=== PATIENT | female | born 1995 | race Caucasian/White ===

== ENCOUNTER 2020-01-11 10:20 | Observation (INO) | payer OTHER, SELFPAY ==
[2020-01-11 10:30] VITALS: BMI 36.9
[2020-01-11 10:49] VITALS: TEMP 36.8
[2020-01-11 11:00] VITALS: BP 129/73; PULSE 108
[2020-01-11 11:15] VITALS: BP 113/62; PULSE 101
[2020-01-11] MEDS: NIFEdipine 10 MG CAPSULE PO (11:29)
[2020-01-11 11:39] LABS: Add Urine Microscopic? YES; Appearance Urine Clear (Clear); Bacteria Urine 2+ /hpf; Bilirubin Urine Negative (Negative); Blood Urine Negative (Negative); Color Urine Straw (Yellow); Glucose Urine UA Negative (Negative); Ketones Urine Negative (Negative); Leukocyte Esterase Ur Trace LEU/UL (Negative); Nitrate Urine Negative (Negative); Protein Urine Negative (Negative); RBC Urine 0-2 /hpf (0-2); Specific Grav Ur 1.008 (1.001-1.035); Squamous Epithelial Cell Urine Occasional /hpf (Few); Urobilinogen Urine Negative mg/dL (<2.0); WBC Urine 0-3 /hpf
[2020-01-11 12:01] VITALS: BP 124/61; PULSE 114
--- NOTE | 2020-01-11 13:30 | OBADM ---
This patient, Mariel Gilbert, admitted to the OB room Labor/Delivery/Recovery 105 for observation. Patient/family oriented to hospital policies and general routines including ID bracelet, bed and alarms, visiting hours, pain management, procedures, bathroom and other care routines, personal items, smoking policy, room service/diet, and visiting hours. Patient/Family are encouraged to report perceived risks to care and to ask questions if they do not understand what they are told or what they should do.
--- NOTE | 2020-01-15 12:13 | PM.OBTRLD ---
OB - Triage/Final Diagnosis Evaluation Laboratory results: Laboratory Tests 01/11/20 11:23 Urine Color Straw Urine Appearance Clear Urine pH 7.0 Ur Specific [place] 1.008 Urine Protein Negative Urine Glucose (UA) Negative Urine Ketones Negative Ur Blood (Man) Negative Urine Nitrate Negative Urine Bilirubin Negative Urine Urobilinogen Negative Leukocyte Esterase Rfl Trace H Urine RBC 0-2 Urine WBC 0-3 Ur Squamous Epith Cells Occasional Urine Bacteria 2+ H Final Diagnosis (1) contractions: Code(s): O47.9 - False labor, unspecified Status: Acute
== END 2020-01-11 12:20 | disposition home or self-care (01) ==
PROVIDERS: Admitting Provider Obstetrics & Gynecology; Visit Provider Obstetrics & Gynecology
DX: O47.03 False labor before 37 completed weeks of gestation, third trimester (principal); Z3A.35 35 weeks gestation of pregnancy
CPT/HCPCS: 81001; 84112; A9270; G0378; G0379

== ENCOUNTER 2020-01-18 13:22 | Observation (INO) | payer OTHER, SELFPAY ==
[2020-01-18] VITALS (20 sets, daily range): BP systolic 105–124; BP diastolic 55–75; PULSE 88–128; O2SAT 99–100
--- NOTE | ~2020-01-18 | US_ITS ---
EXAMINATION: US OB limited DATE: 01/18/2020 19:04 INDICATION: Abdominal pain during third trimester of . TECHNIQUE: Real-time ultrasound of the pelvis was performed. The interpreting radiologist was not pre sent for the study. COMPARISON: None. FINDINGS: There is a single living fetus in vertex presentation. The placenta is posterior and not low-lying. heart rate is 137 beats per minute (bpm). The amniotic fluid volume is subjectively normal. IMPRESSION: 1. Single living fetus in vertex presentation with heart rate of 137 bpm. Reviewed, dictated and finalized at location A. MAKER HELPER IMPRESSION: 1. Single living fetus in vertex presentation with heart rate of 137 bpm .
[2020-01-18 15:33] LABS: Add Urine Microscopic? YES; Amorphous Sediment Urine Few; Appearance Urine Clear (Clear); Bacteria Urine 3+ /hpf; Bilirubin Urine Negative (Negative); Blood Urine Negative (Negative); Color Urine Colorless (Yellow); Glucose Urine UA Negative (Negative); Ketones Urine 1+ mg/dL (Negative); Leukocyte Esterase Ur Negative LEU/UL (NEGATIVE); Nitrate Urine Negative (Negative); Protein Urine Negative (Negative); RBC Urine 0-2 /hpf (0-2); Specific Grav Ur 1.006 (1.001-1.035); Squamous Epithelial Cell Urine Rare /hpf (Few); Urobilinogen Urine Negative mg/dL (<2.0)
--- NOTE | 2020-01-18 15:40 | OBADM ---
This patient, Mariel Gilbert, admitted to the OB room OB Post 112 for observation. Patient/family oriented to hospital policies and general routines including ID bracelet, bed and alarms, visiting hours, pain management, procedures, bathroom and other care routines, personal items, smoking policy, room service/diet, and visiting hours. Patient/Family are encouraged to report perceived risks to care and to ask questions if they do not understand what they are told or what they should do.
[2020-01-18 17:06] LABS: Basophils Absolute Auto 0.1 K/mm3 (0.0-0.1); Basophils Percent Auto 0.4 % (0.2-1.2); Eosinophils Absolute Auto 0.1 K/mm3 (0-0.3); Eosinophils Percent Auto 0.7 % (0-4.4); Hematocrit 33.8 % (37.0-47.0); Hemoglobin 10.6 g/dL (12.0-15.0); Immature Granulocyte Absolute 0.09 K/mm3 (0.00-0.031); Immature Granulocyte Percent A 0.8 % (0-0.5); Lymphocytes Absolute Auto 1.97 K/mm3 (0.9-3.2); Lymphocytes Percent Auto 17.7 % (18.3-44.2); Mean Corpuscular HGB Conc 31.4 g/dl (32-36); Mean Corpuscular Hemoglobin 25.7 pg (26-34); Mean Corpuscular Volume 81.8 fl (80-100); Mean Platelet Volume 10.9 fl (7.4-10.4); Monocytes Absolute Auto 0.8 K/mm3 (0.1-0.6); Monocytes Percent Auto 6.7 % (2.6-8.5); Neutrophils Absolute Auto 8.2 K/mm3 (1.3-6.7); Neutrophils Percent Auto 73.7 % (45.5-73.1); Platelet Count Result 204 k/mm3 (150-375); Red Blood Count 4.13 M/mm3 (4.2-5.4); Red Cell Distribution Width 15.4 % (11.5-14.5); White Blood Count 11.2 K/mm3 (4.5-10.0)
[2020-01-18 17:18] LABS: Alanine Aminotransferase 11 U/L (4-35); Albumin Level 3.6 g/dL (3.5-5.1); Alkaline Phosphatase 122 U/L (38-126); Aspartate Amino Transferase 19 U/L (14-36); Bilirubin,Total 0.5 mg/dL (0.2-1.3); Blood Urea Nitrogen 7 mg/dL (7-17); Calcium 8.7 mg/dL (8.4-10.2); Carbon Dioxide 21 mmol/L (22-30); Chloride 101 mmol/L (98-107); Estimated Glomerular Filt Rate > 60; Glucose 74 mg/dL (65-105); Potassium 3.7 mmol/L (3.4-5.0); Sodium 135 mmol/L (137-145); Uric Acid 3.6 mg/dL (2.5-7.5)
[2020-01-24 07:55] LABS: Glucose Point of Care 120 (65-105)
--- NOTE | 2020-01-29 08:03 | P.PNOB_ITS ---
OB - Triage/Final Diagnosis Evaluation Laboratory results: Laboratory Tests 01/18/20 01/18/20 01/18/20 15:18 17:01 17:01 WBC 11.2 H RBC 4.13 L Hgb 10.6 L Hct 33.8 L MCV 81.8 MCH 25.7 L MCHC 31.4 L RDW 15.4 H Plt Count 204 MPV 10.9 H Immature Gran % (Auto) 0.8 H Neut % (Auto) 73.7 H Lymph % (Auto) 17.7 L [place] % (Auto) 6.7 Eos % (Auto) 0.7 Baso % (Auto) 0.4 Lymph # (Auto) 1.97 [place] # (Auto) 0.8 H Eos # (Auto) 0.1 Baso # (Auto) 0.1 Abs Immat Gran (auto) 0.09 H Absolute Neuts (auto) 8.2 H Absolute Nucleated RBC 0.0 Nucleated RBC % 0.0 Sodium 135 L Potassium 3.7 Chloride 101 Carbon Dioxide 21 L BUN 7 Creatinine 0.50 L Estim Creat Clear Calc Not Reportable Estimated GFR > 60 Glucose 74 POC Capillary Glucose Uric Acid 3.6 Calcium 8.7 Total Bilirubin 0.5 AST 19 ALT 11 Alkaline Phosphatase 122 Total Protein 7.0 Albumin 3.6 Urine Color Colorless Urine Appearance Clear Urine pH 7.0 Ur Specific [place] 1.006 Urine Protein Negative Urine Glucose (UA) Negative Urine Ketones 1+ H Ur Blood (Man) Negative Urine Nitrate Negative Urine Bilirubin Negative Urine Urobilinogen Negative Ur Leukocyte Esterase Negative Urine RBC 0-2 Ur Squamous Epith Cells Rare Amorphous Sediment Few H Urine Bacteria 3+ H 01/18/20 19:22 WBC RBC Hgb Hct MCV MCH MCHC RDW Plt Count MPV Immature Gran % (Auto) Neut % (Auto) Lymph % (Auto) [place] % (Auto) Eos % (Auto) Baso % (Auto) Lymph # (Auto) [place] # (Auto) Eos # (Auto) Baso # (Auto) Abs Immat Gran (auto) Absolute Neuts (auto) Absolute Nucleated RBC Nucleated RBC % Sodium Potassium Chloride Carbon Dioxide BUN Creatinine Estim Creat Clear Calc Estimated GFR Glucose POC Capillary Glucose 120 H Uric Acid Calcium Total Bilirubin AST ALT Alkaline Phosphatase Total Protein Albumin Urine Color Urine Appearance Urine pH Ur Specific [place] Urine Protein Urine Glucose (UA) Urine Ketones Ur Blood (Man) Urine Nitrate Urine Bilirubin Urine Urobilinogen Ur Leukocyte Esterase Urine RBC Ur Squamous Epith Cells Amorphous Sediment Urine Bacteria Final Diagnosis (1) Gestational hypertension: Code(s): O13.9 - Gestational [-induced] hypertension without significant proteinuria, unspecified trimester Status: Acute
== END 2020-01-18 21:25 | disposition home or self-care (01) ==
LOC: ANHOBPP 15:11 → ANHOBOP 15:40 → ANHOBPP 15:41 → ANHOBOP 15:41 → ANHOBPP 15:41
PROVIDERS: Advanced Practice Midwife; Admitting Provider Obstetrics & Gynecology; Family Provider Obstetrics & Gynecology; Visit Provider Obstetrics & Gynecology
DX: O13.3 Gestational [pregnancy-induced] hypertension without significant proteinuria, third trimester (principal); Z3A.36 36 weeks gestation of pregnancy
CPT/HCPCS: 36415; 76815; 80053; 81001; 84550; 85025; 87086; 99199; A9270; G0378; G0379

== ENCOUNTER 2020-01-25 10:51 | Outpatient (CLI) | payer OTHER, SELFPAY ==
[2020-01-25 11:46] VITALS: BP 118/74; PULSE 101
[2020-01-25 11:50] LABS: Basophils Percent Auto 0.3 % (0.2-1.2); Eosinophils Percent Auto 0.4 % (0-4.4); Hematocrit 31.6 % (37.0-47.0); Hemoglobin 9.8 g/dL (12.0-15.0); Immature Granulocyte Absolute 0.08 K/mm3 (0.00-0.031); Immature Granulocyte Percent A 0.9 % (0-0.5); Lymphocytes Absolute Auto 1.57 K/mm3 (0.9-3.2); Lymphocytes Percent Auto 16.8 % (18.3-44.2); Mean Corpuscular Volume 80.6 fl (80-100); Mean Platelet Volume 10.3 fl (7.4-10.4); Monocytes Absolute Auto 0.7 K/mm3 (0.1-0.6); Monocytes Percent Auto 7.8 % (2.6-8.5); Neutrophils Absolute Auto 6.9 K/mm3 (1.3-6.7); Neutrophils Percent Auto 73.8 % (45.5-73.1); Platelet Count Result 204 k/mm3 (150-375); Red Blood Count 3.92 M/mm3 (4.2-5.4); Red Cell Distribution Width 15.5 % (11.5-14.5); White Blood Count 9.4 K/mm3 (4.5-10.0)
[2020-01-25 12:01] VITALS: BP 120/71; PULSE 92
[2020-01-25 12:06] LABS: Alanine Aminotransferase 13 U/L (4-35); Albumin Level 3.3 g/dL (3.5-5.1); Alkaline Phosphatase 122 U/L (38-126); Aspartate Amino Transferase 20 U/L (14-36); Bilirubin,Total 0.4 mg/dL (0.2-1.3); Blood Urea Nitrogen 10 mg/dL (7-17); Calcium 8.5 mg/dL (8.4-10.2); Carbon Dioxide 21 mmol/L (22-30); Chloride 101 mmol/L (98-107); Estimated Glomerular Filt Rate > 60; Glucose 86 mg/dL (65-105); Potassium 3.7 mmol/L (3.4-5.0); Sodium 134 mmol/L (137-145); Uric Acid 4.3 mg/dL (2.5-7.5)
[2020-01-25 12:14] LABS: Add Urine Microscopic? YES; Appearance Urine Clear (Clear); Bacteria Urine Trace /hpf; Bilirubin Urine Negative (Negative); Blood Urine Negative (Negative); Color Urine Yellow (Yellow); Glucose Urine UA Negative (Negative); Ketones Urine Trace mg/dL (Negative); Leukocyte Esterase Ur Negative LEU/UL (NEGATIVE); Mucus Urine Rare /lpf; Nitrate Urine Negative (Negative); Protein Urine Negative (Negative); RBC Urine 0-2 /hpf (0-2); Specific Grav Ur 1.017 (1.001-1.035); Squamous Epithelial Cell Urine Few /hpf (Few); Urobilinogen Urine Negative mg/dL (<2.0); WBC Urine 0-3 /hpf (0-3)
[2020-01-25 12:16] VITALS: BP 129/74; PULSE 88
[2020-01-25 15:19] LABS: Creatinine Urine 86.4 mg/dL; Total Protein Urine Random 11 mg/dL
== END 2020-01-25 13:23 | disposition home or self-care (01) ==
LOC: ANHOBOP 10:57 → ANHOBPP 10:58
PROVIDERS: Visit Provider Obstetrics & Gynecology
DX: M79.89 Other specified soft tissue disorders (principal)
CPT/HCPCS: 36415; 80053; 81001; 82570; 84156; 84550; 85025; 87086; 87088; 99199

== ENCOUNTER 2020-02-01 11:07 | Observation (INO) | payer OTHER, SELFPAY ==
--- NOTE | 2020-02-01 13:15 | OBADM ---
This patient, Mariel Gilbert, admitted to the OB room Labor/Delivery/Recovery 104 for observation. Patient/family oriented to hospital policies and general routines including ID bracelet, bed and alarms, visiting hours, pain management, procedures, bathroom and other care routines, personal items, smoking policy, room service/diet, and visiting hours. Patient/Family are encouraged to report perceived risks to care and to ask questions if they do not understand what they are told or what they should do.
--- NOTE | 2020-02-11 19:13 | PM.OBTRLD ---
OB - Triage/Final Diagnosis Final Diagnosis (1) False labor: Code(s): O47.9 - False labor, unspecified Status: Acute
== END 2020-02-01 13:11 | disposition home or self-care (01) ==
PROVIDERS: Admitting Provider Obstetrics & Gynecology; Visit Provider Obstetrics & Gynecology
DX: O47.1 False labor at or after 37 completed weeks of gestation (principal); Z3A.38 38 weeks gestation of pregnancy
CPT/HCPCS: G0378; G0379

== ENCOUNTER 2020-02-07 04:55 | Inpatient (IN) | payer OTHER, SELFPAY ==
[2020-02-07] VITALS (171 sets, daily range): BP systolic 90–137; BP diastolic 47–85; PULSE 68–148; RESP 12; TEMP 36.1–37.1; O2SAT 95–100; BMI 37.2
--- NOTE | 2020-02-07 05:19 | LDADM ---
This patient, Mariel Gilbert, was admitted to Labor/Delivery/Recovery 105 on 02/07/20 at 04:55. Plans for labor, pain management and were discussed with patient. Patient/family oriented to hospital policies and general routines including ID bracelet, bed and alarms, visiting hours, pain management, procedures, bathroom and other care routines, personal items, smoking policy, room service/diet and guest tray routines, infant security routines, and visiting hours. Patient/Family are encouraged to report perceived risks to care and to ask questions if they do not understand what they are told or what they should do. See OBIX for further documentation.
[2020-02-07] MEDS: LACTATED RINGERS 1,000 ML 125 ML IV CONT ×3 (05:38→11:12)
[2020-02-07] MEDS: OXYTOCIN 30 UNITS/NS 500 ML 30 UNITS/500 ML BAG IV CONT (05:38)
[2020-02-07] MEDS: ceFAZolin 2 GM/D5W 50 ML 2 GM/50 ML BAG IVPB (05:40)
[2020-02-07 05:56] LABS: Basophils Absolute Auto 0.1 K/mm3 (0.0-0.1); Basophils Percent Auto 0.5 % (0.2-1.2); Eosinophils Absolute Auto 0.1 K/mm3 (0-0.3); Eosinophils Percent Auto 0.7 % (0-4.4); Hematocrit 31.7 % (37.0-47.0); Hemoglobin 9.7 g/dL (12.0-15.0); Immature Granulocyte Absolute 0.06 K/mm3 (0.00-0.031); Immature Granulocyte Percent A 0.6 % (0-0.5); Mean Corpuscular HGB Conc 30.6 g/dl (32-36); Mean Corpuscular Hemoglobin 24.3 pg (26-34); Mean Corpuscular Volume 79.4 fl (80-100); Mean Platelet Volume 11.4 fl (7.4-10.4); Monocytes Absolute Auto 0.6 K/mm3 (0.1-0.6); Monocytes Percent Auto 6.2 % (2.6-8.5); Neutrophils Absolute Auto 6.8 K/mm3 (1.3-6.7); Platelet Count Result 221 k/mm3 (150-375); Red Blood Count 3.99 M/mm3 (4.2-5.4); Red Cell Distribution Width 15.9 % (11.5-14.5)
[2020-02-07] MEDS: ONDANSETRON INJ 4 MG/2 ML VIAL IV PUSH ×2 (06:47→16:03)
[2020-02-07 07:23] LABS: Rapid Plasma Reagin Non-Reactive (NonReactive)
[2020-02-07 07:32] LABS: Glucose Point of Care 95 (65-105)
[2020-02-07 07:32] LABS: Glucose Point of Care 122 (65-105)
--- NOTE | 2020-02-07 07:57 | WPDOBADMIT ---
Obstetrics - Admit Note Admission Note: 24 y/o at 39 weeks here for induction of labor. GDM insulin controlled. EFW 7-12 8-9 days ago. Discussed efw with patient and she would like proceed with induction of labor. record reviewed. No pertinent additions to the history and/or any subsequent changes in the physical findings that are not consistent with the expected course of the were found. Additions to the history and/or subsequent changes in the physical findings follow. None.
--- NOTE | 2020-02-07 10:19 | WPDANESEPP ---
Anes - Eval Pre Procedure Procedure: labor pain management Date/Time: 02/07/20 10:19 Surgeon: courtney Pre Op Diagnosis: pain during labor Patient Data Age: 24 Gender: F Height: 5 ft 2 in Weight: 92.3 kg Last Vital Signs Temp 98.3 F 02/07/20 09:53 Pulse 89 02/07/20 10:01 BP 125/66 02/07/20 10:01 Allergies Allergy/AdvReac Type Severity Reaction Status Date / Time aspirin Allergy Unknown Nausea and Verified 06/30/19 20:45 Vomiting amoxicillin Allergy Rash Verified 01/11/20 11:18 Home Medications Medication Instructions Recorded Confirmed Type ondansetron 4 mg PO Q6H PRN #30 tablet 09/26/19 02/07/20 Rx Humulin N NPH U-100 Insulin 16 unit SUBCUT QAM 01/11/20 02/07/20 History Humulin N NPH U-100 Insulin 18 unit SUBCUT HS 01/11/20 02/07/20 History Laboratory Tests 02/07/20 02/07/20 02/07/20 05:30 05:30 05:30 WBC 10.0 K/mm3 K/mm3 (4.5-10.0) RBC 3.99 M/mm3 L M/mm3 (4.2-5.4) Hgb 9.7 g/dL L g/dL (12.0-15.0) Hct 31.7 % L % (37.0-47.0) MCV 79.4 fl L fl (80-100) MCH 24.3 pg L pg (26-34) MCHC 30.6 g/dl L g/dl (32-36) RDW 15.9 % H % (11.5-14.5) Plt Count 221 k/mm3 k/mm3 (150-375) MPV 11.4 fl H fl (7.4-10.4) Immature Gran % (Auto) 0.6 % H % (0-0.5) Neut % (Auto) 68.0 % % (45.5-73.1) Lymph % (Auto) 24.0 % % (18.3-44.2) [place] % (Auto) 6.2 % % (2.6-8.5) Eos % (Auto) 0.7 % % (0-4.4) Baso % (Auto) 0.5 % % (0.2-1.2) Lymph # (Auto) 2.40 K/mm3 K/mm3 (0.9-3.2) [place] # (Auto) 0.6 K/mm3 K/mm3 (0.1-0.6) Eos # (Auto) 0.1 K/mm3 K/mm3 (0-0.3) Baso # (Auto) 0.1 K/mm3 K/mm3 (0.0-0.1) Abs Immat Gran (auto) 0.06 K/mm3 H K/mm3 (0.00-0.031) Absolute Neuts (auto) 6.8 K/mm3 H K/mm3 (1.3-6.7) Absolute Nucleated RBC 0.0 K/mm3 K/mm3 (0.0-0.012) Nucleated RBC % 0.0 % % (0.0-0.2) POC Capillary Glucose RPR Non-reactive (NonReactive) Blood Type A Positive Antibody Screen Negative 02/07/20 02/07/20 05:32 07:27 WBC RBC Hgb Hct MCV MCH MCHC RDW Plt Count MPV Immature Gran % (Auto) Neut % (Auto) Lymph % (Auto) [place] % (Auto) Eos % (Auto) Baso % (Auto) Lymph # (Auto) [place] # (Auto) Eos # (Auto) Baso # (Auto) Abs Immat Gran (auto) Absolute Neuts (auto) Absolute Nucleated RBC Nucleated RBC % POC Capillary Glucose 122 mg/dl H mg/dl 95 mg/dl mg/dl (65-105) (65-105) RPR Blood Type Antibody Screen : gestational age (edc 02/14/20) Patient hx anesthesia problems: none Family hx anesthesia problems: none Prior Surgeries: appy, tonsillectomy [facility] Past Medical History Medical History (Updated 02/07/20 @ 10:18 by Sheyla Singleton CRNA) Surgical History Surgical History (Updated 02/07/20 @ 10:18 by Sheyla Singleton CRNA) History of appendectomy History of tonsillectomy Family History Family History (Updated 01/25/20 @ 13:58 by José Burrows RN) Grandparent Diabetes mellitus Daughter Epilepsy Social History Social History Smoking status: Former smoker Tobacco type: cigarettes Substance use: never Gender identity (if verbalized by the patient): Female Spiritual care concerns: No Exam Day of Procedure 02/07/20 10:19
[2020-02-07 12:11] LABS: Glucose Point of Care 87 (65-105)
[2020-02-07 16:02] LABS: Glucose Point of Care 79 (65-105)
--- NOTE | 2020-02-07 18:12 | PM.OBPRVD ---
OB - Delivery Note Procedure Delivery date: 02/07/20 events: Gestational Diabetes Induction method: per pitocin protocol Delivery monitor: external FHT and external uterine Episiotomy description: None Laceration description: None Estimated blood loss (mL): 36 Anesthesia type: Epidural Baby Date of : 02/07/20 Time of : 17:56 Weeks of gestation at delivery: 39 Weight (pounds): 8 Weight (ounces): 15 presentation: vertex position: Left Occiput Anterior Placenta delivery description: Spontaneous score one minute: 4 score five minutes: 8 Narrative: After delivery of head. Minimal advancement of baby with maternal push effort. Pt placed in juaquin and attempted to push with no advancement. I placed my hands inside and felt that the shoulder did not appear to be stuck. Suprapubic pressure applied and delivery of shoulder accomplished with maternal pushing. Slow delivery of torso over about 10 seconds. Infant not vigorous at delivery. Cord clamped and cut and infant handed off to nursery staff.
[2020-02-07] MEDS: OXYTOCIN 30 UNITS/NS 500 ML 30 UNITS/500 ML BAG 125 UNITS IV CONT (18:26)
--- NOTE | 2020-02-07 23:01 | PC.NURSE ---
2034 Pt arrives to floor per wheelchair accompanied by baby in crib and staff. Plan of care and floor routines discussed with pt and she voices understanding. Mom encouraged to make needs and concerns known to staff.
[2020-02-07] MEDS: ACETAMINOPHEN 325 MG TABLET 650 MG PO (23:09)
[2020-02-08 05:22] LABS: Hematocrit 30.6 % (37.0-47.0); Hemoglobin 9.3 g/dL (12.0-15.0)
[2020-02-08 08:00] VITALS: BP 119/72; PULSE 84; RESP 20; TEMP 36.2; O2SAT 100
--- NOTE | 2020-02-08 08:37 | PM.OBPNVD ---
OB - PN: Subj Subjective Date/time seen: 02/08/20 08:37 Patient comments: no complaints, pain well controlled, incisional pain, tolerating diet and flatus present OB - PN: Obj Data Labs CBC & Chem 7: 02/08/20 04:55 Labs: Laboratory Results - last 24 hr 02/07/20 02/07/20 02/08/20 12:05 15:59 04:55 Hgb 9.3 L Hct 30.6 L POC Capillary Glucose 87 79 OB - PN A/P Plan day: 1 Plan: routine care Comments: No problems, routine care Time Spent With Patient Time: Total time spent is greater than 50% in coordination of care (as documented) at patient's floor/unit and/or counseling patient: Exam Const: General: comfortable, no acute distress and alert Resp: Effort & Inspection: normal respiratory effort Auscultation: no crackles, no rales and no rhonchi Cardio: Rate: regular rate Heart sounds: no click, no murmurs and no rubs GI: Inspection: non-distended GI Palp: No Tenderness to palpation present (GI) Auscultation: normal bowel sounds Other: Incision - CDI Extrem: General: normal to inspection, no pedal edema and no calf tenderness
[2020-02-08] MEDS: DOCUSATE SODIUM 100 MG CAPSULE PO ×2 (09:00→16:21)
[2020-02-08] MEDS: ACETAMINOPHEN 325 MG TABLET 650 MG PO ×2 (09:00→16:20)
[2020-02-08] MEDS: POLYSACCHARIDE IRON COMPLEX 150 MG CAPSULE PO ×2 (09:00→16:21)
[2020-02-08] MEDS: MULTIVIT/MIN/PREN/FOL AC/IRON TABLET 1 TAB PO (09:00)
[2020-02-08] MEDS: LANOLIN (LANSINOH) 7.5 GM CREAM 1 APPLIC TOPICAL (09:01)
--- NOTE | 2020-02-08 09:15 | WPDANLDPN2 ---
Anes-Prog Note L&D Date/Time: 02/08/20 09:15 Comfortable throughout: labor and delivery (Patient stated that epidural came dislodged prior to delivery. Patient described acceptable level of comfort until epidural was dislodged. ) Neuraxial method: epidural Epidural/Spinal procedure site: clean & non-tender Neuro status: Neuro function grossly intact. Cardiovascular status: normal Respiratory status: normal Airway patency: baseline Mental status: baseline Post-Op hydration status: normal Vital Signs: Last Vital Signs Temp 36.7 C 02/07/20 23:43 Pulse 102 H 02/07/20 23:43 Resp 12 02/07/20 23:43 BP 107/67 02/07/20 23:43 Pulse Ox 100 02/07/20 17:54 Pain score (VAS): 0/10. Patient resting in bed at time of assessment, appears comfortable. Support person at bedside. Post-procedural complaints: none Patient feedback: Patient satisfied with anesthetic care.
--- NOTE | 2020-02-08 15:35 | PC.NURSE ---
Consulted with patient, mother reports pain with feeding. Mother's right nipple is slightly bruised. Observed mother putting to breast in cradle position with shallow latch and incorrect alignment. Demonstrated stimulation techniques to wake infant for feeding. Assisted with to breast. Reviewed positioning/alignment in cross cradle, holding breast in U hold and guided asymmetrical latch on. Discussed rational for each. Observed has a tight frenulum, tongue does go beyond gum ridge. Tongue does not flatten and cup. Several attempts before was able to latch correctly. nursed eagerly, with steady draws and frequent swallowing noted. Mother reports this latch has minimal discomfort to her. Reviewed signs of a correct latch, effective nursing and suck swallow ratio. Demonstrated how to adjust latch more deeply while feeding. Suggested mother hold breast during entire feeding to assist in maintaining deep latch. was able to maintain latch without discomfort to mother. Nipple care reviewed. Instructed mother to call out for RN assistance if she is unable to latch for feeding or she has discomfort with nursing. Instructed feeding should be initiated three hours from start of last feeding or if feeding cues are noted before. Mother voiced understanding of information shared. Reviewed infant feeding cues, frequencies, duration of feedings, feeding elimination flow sheet, and signs of adequate intake.
[2020-02-08 20:36] VITALS: BP 119/79; PULSE 81; RESP 18; TEMP 37.4; O2SAT 99
--- NOTE | 2020-02-09 07:31 | PM.OBPNVD ---
OB - PN: Subj Subjective Date/time seen: 02/09/20 07:31 Patient comments: no complaints baby status: doing well OB - PN: Obj Data Labs CBC & Chem 7: 02/08/20 04:55 OB - PN A/P Plan day: 2 Plan: discharge home Time Spent With Patient Time: Total time spent is greater than 50% in coordination of care (as documented) at patient's floor/unit and/or counseling patient: Review of Systems Review of Systems: All systems reviewed & are unremarkable except as noted in HPI and below Exam Const: General: comfortable Resp: Effort & Inspection: normal respiratory effort Psych: Appearance: grossly normal Affect: normal affect Attitude: cooperative
--- NOTE | 2020-02-09 07:32 | P.DS_ITS ---
OB - DS: Summary OB Procedures : None OB Procedures Intrapartum: Spontaneous Vag Delivery OB Procedures: : None Time Spent with Patient Time attestation: Total time spent providing and/or coordinating discharge services: DS: Data Data Completed and Pending Pending studies at discharge: Pending at discharge 02/07/20 18:04 Surgical [PTH] Routine Discharge Plan Discharge Attending physician on discharge: Rene Gotti Discharging Clinician: Maria T Carlton Patient Disposition: Home, Self-Care Activity: pelvic rest Diet: regular Patient Instructions: Antibiotic Form Stand Alone Forms: General Discharge Information Follow-up/Referrals: Swetha Schwab CNM [Certified Nurse Transaction Advisory Services Manager] - 4 Weeks Discharge Medications: New polysaccharide iron complex 150 mg iron Capsule 150 mg PO BIDWM Qty: 30 RF: 0 Discontinued ondansetron 4 mg Tablet,Disintegrating 4 mg PO Q6H PRN (Reason: Nausea And Vomiting) Qty: 30 RF: 0 Humulin N NPH U-100 Insulin 100 unit/mL Suspension 16 unit SUBCUT QAM RF: 0 Humulin N NPH U-100 Insulin 100 unit/mL Suspension 18 unit SUBCUT HS RF: 0 Date of admission: 02/07/20 04:55 Primary Care Provider: UNKNOWN,DOCTOR Admitting Provider: Rene Gotti Attending physician on admission: Rene Gotti
[2020-02-09 08:15] VITALS: BP 124/67; PULSE 77; RESP 16; TEMP 37.1; O2SAT 100
[2020-02-09] MEDS: ACETAMINOPHEN 325 MG TABLET 650 MG PO (08:33)
[2020-02-09] MEDS: DOCUSATE SODIUM 100 MG CAPSULE PO (08:33)
[2020-02-09] MEDS: POLYSACCHARIDE IRON COMPLEX 150 MG CAPSULE PO (08:33)
[2020-02-09] MEDS: MULTIVIT/MIN/PREN/FOL AC/IRON TABLET 1 TAB PO (08:33)
--- NOTE | 2020-02-09 12:10 | PC.NURSE ---
Mother is able to independently latch infant with appropriate positioning/alignment, reporting minimal tenderness with feedings. Mother feels ifnant is latching more deeply and feels she is able to correct latch as needed. She is feeding as required and waking infant to feed if needed. has had 8 effective feedings in the past 24 hours, and is currently meeting outcomes for weight, output, jaundice and feeding frequencies. Mother states she feels confident to continue effective at home. Reviewed transition to breast milk, signs of adequate intake, and engorgement/relief. Instructed to call ICP if intake/output less than required. Reviewed regular medications mother is taking. Information provided per [facility]. Reviewed community resources on the [facility] website and in the Mom/Baby guide. Information on outpatient services provided. Mother has no further questions at this time.
[2020-02-12 10:23] VITALS: BP 119/67; PULSE 94; RESP 18; TEMP 36.8
== END 2020-02-09 13:30 | disposition home or self-care (01) | DRG 560 ==
LOC: ANHLDR 10:20 → ANHOB2 21:02
PROVIDERS: Advanced Practice Midwife; Admitting Provider Obstetrics & Gynecology; Visit Provider Obstetrics & Gynecology
DX: O24.424 Gestational diabetes mellitus in childbirth, insulin controlled (principal); Z37.0 Single live birth; Z3A.39 39 weeks gestation of pregnancy
CPT/HCPCS: 36415; 85014; 85018; 85025; 86592; 86850; 86900; 86901; 88307; A9270; J0690; J2405; J2590; J2795; J7120

== ENCOUNTER 2020-05-22 16:28 | Outpatient (CLI) | payer OTHER, SELFPAY ==
--- NOTE | ~2020-05-22 | US_ITS ---
EXAMINATION: US breast RT limited HISTORY: Palpable lump of the lower-outer right breast TECHNIQUE: Limited right breast ultrasound is performed. FINDINGS: There is no evidence of focal abnormal cystic or solid mass in the vicinity of the reported palpable abnormality of concern. IMPRESSION: No specific sonographic correlate is identified for the reported palpable abnormality of concern. Fur ther evaluation at this time should be based on clinical assessment. Continued follow-up physical exa mination is recommended. BI-RADS Category 1: Negative Reviewed, dictated and finalized at location A. IMPRESSION: No specific sonographic correlate is identified for the reported palpable abnor mality of concern. Further evaluation at this time should be based on clinical assessment. Continued follow-up physical examination is recommended. BI-RADS Category 1: Negative
== END 2020-05-22 16:29 | disposition home or self-care (01) ==
PROVIDERS: Visit Provider Advanced Practice Midwife
DX: N63.10 Unspecified lump in the right breast, unspecified quadrant (principal)
CPT/HCPCS: 76642

== ENCOUNTER 2022-09-12 10:00 | Emergency (ER) | payer OTHER, SELFPAY ==
[2022-09-12 10:05] VITALS: BP 128/88; PULSE 103; RESP 16; TEMP 36.2; O2SAT 98
--- NOTE | 2022-09-12 10:53 | ED.GENADULT ---
HPI - General Adult General Chief complaint: Skin/Abscess/Foreign Body Stated complaint: rash on body and blisters Time Seen by Provider: 09/12/22 10:03 History of Present Illness HPI narrative: the patient is an otherwise healthy 27-year-old woman who for the last 3-4 weeks has noticed a rash it on different parts of her body, including the torso, mostly in the front but to a lesser extent the back and between her thighs and on her breasts. Initially thought to be poison kirill at an urgent care visit and prescribed prednisone. This resulted in her face turning more red and she was told to discontinue it. She has applied Benadryl topical lotion to the areas but without relief of the itching. No exposure to pets or insects. No exposure to new medications or new lotions or detergents. No exposure to plants or shrubs or animals. No previous history of staph or impetigo or MRSA. No dyspnea. No other systemic manifestations of disease. No fevers or chills or diaphoresis or rhinorrhea or cough or respiratory illnesses. Related Data Home Medications Medication Instructions Recorded Confirmed norethindrone 1 mg-ethinyl 1 tablet PO DAILY 09/12/22 09/12/22 estradiol 20 mcg (21)-iron 75 mg (7) tablet ([place] Fe 12/11 (28)) Allergies Allergy/AdvReac Type Severity Reaction Status Date / Time aspirin Allergy Unknown Nausea and Verified 09/12/22 10:12 Vomiting amoxicillin Allergy Rash Verified 09/12/22 10:12 prednisone Allergy Rash Verified 09/12/22 10:12 Review of Systems Review of Systems: All systems reviewed & are unremarkable except as noted in HPI and below Constitutional: Constitutional: Reports no additional constitutional complaints, Denies anorexia, Denies body ache(s), Denies chills, Denies excessive sweating, Denies fatigue, Denies fever(s), Denies frequent falls, Denies headache(s), Denies malaise and Denies poor appetite Eyes: Eyes: Reports no additional eye complaints, Denies blurry vision, Denies change in vision, Denies irritation, Denies itchy eyes and Denies photophobia ENT: Reports system reviewed and no additional complaints, except as documented, Reports Normal hearing present, Denies change in voice, Denies dysphagia, Denies vertigo, Denies dizziness, Denies ear discharge, Denies headache(s), Denies hearing loss, Denies hoarseness, Denies nasal congestion, Denies neck pain, Denies sinus pressure, Denies sore throat and Denies throat swelling Cardiovascular: Cardiovascular: Reports no additional cardiovascular complaints, Denies chest pain, Denies syncope, Denies rapid heart rate, Denies irregular heart rhythm, Denies leg edema, Denies dyspnea and Denies slow heart rate Respiratory: Respiratory: Reports no additional respiratory complaints, Denies cough, Denies dyspnea, Denies stridor and Denies wheezing Gastrointestinal: Gastrointestinal: Reports no additional gastrointestinal complaints, Denies abdominal pain, Denies melena, Denies hematochezia, Denies dysphagia, Denies diarrhea, Denies nausea and Denies vomiting Genitourinary: Genitourinary: Denies hematuria, Denies urinary frequency, Denies dysuria, Denies flank pain and Denies urinary urgency Musculoskeletal: Musculoskeletal: Reports no additional musculoskeletal complaints, Denies abnormal gait, Denies back pain, Denies myalgias, Denies arthralgias, Denies joint swelling, Denies limited range of motion, Denies muscle cramps, Denies muscle weakness, Denies neck pain and Denies numbness Integumentary/Breasts: Skin/Breast: Reports system reviewed and no additional complaints, except as docu, Denies breast pain, Reports change in pigmentation, Reports pruritus, Reports erythema, Reports rash and Denies wounds Neurologic: Reports system reviewed and no additional complaints, except as documented, Reports Normal hearing present, Denies Abnormal speech present, Denies abnormal gait, Denies confusion, Denies vertigo, Denies dizziness, Denies syncope, Denies freque
== END 2022-09-12 11:02 | disposition home or self-care (01) ==
PROVIDERS: Emergency Provider Emergency Medicine; PCP Physician Assistant
DX: L01.00 Impetigo, unspecified (principal)
CPT/HCPCS: 99283

== ENCOUNTER 2022-10-30 08:49 | Outpatient (CLI) | payer OTHER, SELFPAY ==
[2022-10-30 19:06] LABS: Hemoglobin A1C 5.1 % (<5.7)
[2022-10-30 19:37] LABS: Cholesterol 173 mg/dL (0-200); HDL Direct 34 mg/dL; Triglycerides 283 mg/dL (<150)
[2022-10-30 19:47] LABS: LDL Cholesterol Direct 80 mg/dL
== END 2022-10-30 08:50 | disposition home or self-care (01) ==
LOC: ANHGOSHLAB 08:51
PROVIDERS: PCP Internal Medicine; Visit Provider Nurse Practitioner
DX: R73.9 Hyperglycemia, unspecified (principal)
CPT/HCPCS: 36415; 80061; 83036; 84443

== ENCOUNTER 2022-11-09 09:54 | Outpatient (CLI) | payer OTHER, SELFPAY ==
--- NOTE | 2022-11-14 13:25 | P.PCNHOL_ITS ---
Holter/Event Monitor Holter/Event Monitor Date of procedure: 11/14/22 Holter/Event Procedure: 48 Hr Holter Monitor Diagnosis: Tachycardia Indications: Tachycardia Image/Tracing Quality: Acceptable Finding: Underlying rhythm is sinus with an elevated average heart rate of 94 beats per minute minimum of 56 beats per minute occurring at 2:48 a.m. and maximum 158 beats per minute occurring at 4:32 p.m.. No ventricular ectopy noted throughout the study. Rare supraventricular ectopy totaling 28 premature atrial contr actions. No atrial fibrillation, atrial flutter, prolonged pauses or high-grade AV blocks noted. No symptoms returned in conjunction with this study. Activity during fastest heart rate appears consistent with sinus tachycardia. However, as activities not noted at that time cannot exclude atrial tachycardia. Conclusion: Underlying sinus rhythm with elevated average heart rate 94 beats per minute. No obvious SVT, atrial fibrillation, atrial flutter, prolonged pauses or high- grade AV blocks. No symptoms returned with this study. Clinical correlation advised.
== END 2022-11-09 09:55 | disposition home or self-care (01) ==
LOC: ANHCARD 09:55
PROVIDERS: PCP Internal Medicine; Visit Provider Nurse Practitioner
DX: R00.0 Tachycardia, unspecified (principal); R07.89 Other chest pain
CPT/HCPCS: 93225; 93226

== ENCOUNTER 2023-02-03 14:47 | Emergency (ER) | payer OTHER, SELFPAY ==
[2023-02-03 14:51] VITALS: BP 130/70; PULSE 104; RESP 16; TEMP 36.4; O2SAT 100
[2023-02-03 16:28] VITALS: BP 129/75; PULSE 89; RESP 16; O2SAT 100
[2023-02-03] MEDS: LACTATED RINGERS 1,000 ML 999 ML IV CONT (17:45)
[2023-02-03] MEDS: METOCLOPRAMIDE HCL INJ 10 MG/2 ML VIAL IV PUSH (17:46)
[2023-02-03] MEDS: diphenhydrAMINE HCl INJ 50 MG/ML VIAL 25 MG IV PUSH (17:46)
[2023-02-03 18:01] LABS: Alanine Aminotransferase 20 U/L (6-35); Albumin Level 4.3 g/dL (3.5-5.1); Alkaline Phosphatase 35 U/L (38-126); Anion Gap 7 mmol/L (8-16); Aspartate Amino Transferase 23 U/L (14-36); Bilirubin,Total 0.6 mg/dL (0.2-1.3); Blood Urea Nitrogen 5 mg/dL (7-17); Carbon Dioxide 23 mmol/L (22-30); Chloride 101 mmol/L (98-107); Estimated CRCL calculation 187 ml/min; Estimated Glomerular Filt Rate > 60; Glucose 89 mg/dL (65-110); Lipase 57 U/L (23-300); Potassium 3.4 mmol/L (3.4-5.0); Sodium 131 mmol/L (137-145)
[2023-02-03 18:05] LABS: Basophils Absolute Auto 0.1 K/mm3 (0.0-0.1); Basophils Percent Auto 0.5 % (0.2-1.2); Eosinophils Absolute Auto 0.1 K/mm3 (0-0.3); Eosinophils Percent Auto 0.9 % (0-4.4); Hemoglobin 13.6 g/dL (12.0-15.0); Immature Granulocyte Absolute 0.04 K/mm3 (0.00-0.031); Immature Granulocyte Percent A 0.4 % (0-0.5); Lymphocytes Absolute Auto 2.79 K/mm3 (0.9-3.2); Lymphocytes Percent Auto 29.3 % (18.3-44.2); Mean Corpuscular HGB Conc 34.9 g/dl (32-36); Mean Corpuscular Hemoglobin 30.3 pg (26-34); Mean Corpuscular Volume 86.9 fl (80-100); Mean Platelet Volume 9.6 fl (7.4-10.4); Monocytes Absolute Auto 0.4 K/mm3 (0.1-0.6); Monocytes Percent Auto 4.2 % (2.6-8.5); Neutrophils Absolute Auto 6.2 K/mm3 (1.3-6.7); Neutrophils Percent Auto 64.7 % (45.5-73.1); Platelet Count Result 265 k/mm3 (150-375); Red Blood Count 4.49 M/mm3 (4.2-5.4); White Blood Count 9.5 K/mm3 (4.5-10.0)
--- NOTE | 2023-02-03 18:12 | ED.HA ---
HPI - Headache General Chief Complaint: Headache Stated Complaint: migraine x 3 days, 13 weeks with cramping Time Seen by Provider: 02/03/23 17:22 History of Present Illness HPI Narrative: Patient at 13weeks with nausea, abdominal/pelvic cramping radiating to back, over past week. Her OB has tried zofran than phenergan but patient still not feeling well, and now with a headache past 3 days, so came in today. No vaginal bleeding; has confirmed IUP. Related Data Allergies Allergy/AdvReac Type Severity Reaction Status Date / Time aspirin Allergy Unknown Nausea and Verified 02/03/23 14:56 Vomiting prednisone Allergy Rash Verified 02/03/23 14:56 Review of Systems Review of Systems: CONST: No fever. HEENT: No sore throat C/V: No chest pain RESP: No cough GI: Reports abdominal pain, nausea, vomiting : No dysuria. M/S: No joint pain. SKIN: No rash. NEURO: [Headache without focal numbness or weakness] PSYCH: [No depression] PMFSH Past Medical History Medical History Allergies Headache Surgical History Surgical History History of appendectomy History of tonsillectomy Family History Family History Grandparent Diabetes mellitus Cancer Depression Hypertension Daughter Epilepsy Asthma Father Depression Mother Depression Social History Social History Smoking status: Former smoker Tobacco type: cigarettes Smoking end date: 11/22/18 Alcohol intake: never Substance use: current Substance use type: marijuana Lack of Transportation: No Lack of Food: Never True Current Housing: I Have Housing Concerned About Future Housing: No Difficulty Paying Gas/Electric Bills: No Difficulty Paying for Meds: No Currently Unemployed: Decline to Answer Education: High School Diploma/GED Difficulty w/ Childcare or Family Care: YES Gender identity (if verbalized by the patient): Female Spiritual care concerns: No Exam Narrative: EXAMINATION OF ORGAN SYSTEMS/BODY AREAS: Constitutional: Vital signs per nursing GENERAL:[No acute distress, non-toxic appearing.] HEAD: Normal with no signs of head trauma. EYES: EOMI, conjunctiva normal ENT: Hearing grossly intact LUNGS: Nonlabored breathing. HEART: [Regular rate and rhythm] ABD: [Soft], [nontender to palpation] BACK: No CVA tenderness EXT: Normal range of motion SKIN: [No rashes or lesions.] NEURO: [Alert and oriented x 3. No gross focal sensory or strength deficits.] PSYCH: Normal affect Course Vital Signs Vital signs: Vital Signs Temperature 97.5 F L 02/03/23 14:51 Pulse Rate 104 H 02/03/23 14:51 Respiratory Rate 16 02/03/23 14:51 Blood Pressure 130/70 02/03/23 14:51 Pulse Oximetry 100 02/03/23 14:51 Oxygen Delivery Room Air 02/03/23 14:51 Temperature 97.5 F L 02/03/23 14:51 Pulse Rate 88 02/03/23 18:23 Respiratory Rate 16 02/03/23 18:23 Blood Pressure 115/76 02/03/23 18:23 Pulse Oximetry 100 02/03/23 18:23 Oxygen Delivery Room Air 02/03/23 14:51 MDM - Headache MDM Narrative Medical decision making narrative: 27-year-old female presenting with some pelvic pain that seems to go to her lower back, and a headache. Vital signs stable here, no focal neurologic deficits, soft nontender abdomen, no CVA tenderness. Differential includes discomforts of , including round ligament pain, also considered UTI. Bedside US by myself shows IUP with good movement, normal FHR. I will start Reglan for nausea and for migraine. Labs showing bacteriuria; I will start abx. On reevaluation, patient states she is feeling better, headache has resolved. She now just feels sleepy. I did discuss this with Dr. Gotti regarding management and he agrees with this plan
[2023-02-03 18:18] LABS: Appearance Urine Clear (Clear); Bacteria Urine 1+ /hpf; Bilirubin Urine Negative (Negative); Blood Urine Negative (Negative); Color Urine Yellow (Yellow); Glucose Urine UA Negative (Negative); Ketones Urine Negative (Negative); Leukocyte Esterase Ur 2+ LEU/UL (Negative); Nitrate Urine Negative (Negative); Non Pathogenic Casts 0-2; Protein Urine Negative (Negative); RBC Urine 0-2 /hpf (0-2); Specific Grav Ur 1.007 (1.001-1.035); Squamous Epithelial Cell Urine Occasional /hpf (Few); Urobilinogen Urine 0.2 mg/dL (<2.0); pH Urine 6.5 (5.0-9.0)
[2023-02-03 18:23] VITALS: BP 115/76; PULSE 88; RESP 16; O2SAT 100
[2023-02-03 18:23] LABS: Add Urine Microscopic? YES
[2023-02-03 19:25] VITALS: BP 128/65; PULSE 88; RESP 20; O2SAT 100
== END 2023-02-03 19:40 | disposition home or self-care (01) ==
PROVIDERS: Emergency Provider Emergency Medicine
DX: O26.891 Other specified pregnancy related conditions, first trimester (principal); R10.2 Pelvic and perineal pain; R51.9 Headache, unspecified; R82.71 Bacteriuria; Z87.891 Personal history of nicotine dependence; Z3A.13 13 weeks gestation of pregnancy
CPT/HCPCS: 36415; 80053; 81001; 83690; 85025; 87086; 87088; 96365; 96367; 96375; 99284; J0131; J0696; J1200; J2765; J7120

== ENCOUNTER 2023-06-16 05:15 | Observation (INO) | payer OTHER, SELFPAY ==
[2023-06-16 05:31] VITALS: BP 129/69; PULSE 99
[2023-06-16 05:43] VITALS: BMI 38.8
--- NOTE | 2023-06-16 05:43 | OBADM ---
This patient, Mariel Gilbert, admitted to the OB room OB Post 117 for observation. Patient/family oriented to hospital policies and general routines including ID bracelet, bed and alarms, visiting hours, pain management, procedures, bathroom and other care routines, personal items, smoking policy, room service/diet, and visiting hours. Patient/Family are encouraged to report perceived risks to care and to ask questions if they do not understand what they are told or what they should do.
[2023-06-16 05:46] VITALS: BP 123/71; PULSE 110
[2023-06-16 05:52] LABS: Appearance Urine Clear (Clear); Bacteria Urine 1+ /hpf; Bilirubin Urine Negative (Negative); Blood Urine Negative (Negative); Color Urine Yellow (Yellow); Glucose Urine UA Negative (Negative); Ketones Urine Negative (Negative); Leukocyte Esterase Ur 2+ LEU/UL (Negative); Nitrate Urine Negative (Negative); Non Pathogenic Casts 0-2; Protein Urine Negative (Negative); RBC Urine 0-2 /hpf (0-2); Specific Grav Ur 1.008 (1.001-1.035); Squamous Epithelial Cell Urine Occasional /hpf (Few); Urobilinogen Urine 0.2 mg/dL (<2.0)
[2023-06-16 05:53] LABS: Add Urine Microscopic? YES
[2023-06-16 06:01] VITALS: BP 125/70; PULSE 97
--- NOTE | 2023-06-17 13:50 | PM.OBTRLD ---
OB - Triage/Final Diagnosis Visit Information Date of evaluation: 06/16/23 Reason for evaluation: threatened labor Comments/Additional reasons for admission: I have assessed the risk for this patient, Mariel Gilbert, and determined that she would benefit from observation care. Evaluation Laboratory results: Laboratory Tests 06/16/23 05:40 Urine Color Yellow Urine Appearance Clear Urine pH 7.0 Ur Specific [place] 1.008 Urine Protein Negative Urine Glucose (UA) Negative Urine Ketones Negative Ur Blood (Man) Negative Urine Nitrate Negative Urine Bilirubin Negative Urine Urobilinogen 0.2 Leukocyte Esterase Rfl 2+ H Urine RBC 0-2 Urine WBC 6-10 H Ur Squamous Epith Cells Occasional Urine Bacteria 1+ H Urine Casts 0-2
== END 2023-06-16 06:23 | disposition home or self-care (01) ==
PROVIDERS: Admitting Provider Obstetrics & Gynecology; Visit Provider Obstetrics & Gynecology
DX: O47.03 False labor before 37 completed weeks of gestation, third trimester (principal); O26.893 Other specified pregnancy related conditions, third trimester; R10.9 Unspecified abdominal pain; Z3A.31 31 weeks gestation of pregnancy
CPT/HCPCS: 81001; 87086; G0378; G0379

== ENCOUNTER 2023-07-10 15:12 | Observation (INO) | payer OTHER, SELFPAY ==
[2023-07-10] VITALS (17 sets, daily range): BP systolic 121–126; BP diastolic 63–88; PULSE 105–138; TEMP 36.6; O2SAT 99–100; BMI 39.1
--- NOTE | 2023-07-10 15:12 | OBADM ---
This patient, Mariel Gilbert, admitted to the OB room OB Post 116 for observation. Patient/family oriented to hospital policies and general routines including ID bracelet, bed and alarms, visiting hours, pain management, procedures, bathroom and other care routines, personal items, smoking policy, room service/diet, and visiting hours. Patient/Family are encouraged to report perceived risks to care and to ask questions if they do not understand what they are told or what they should do.
[2023-07-10 15:45] LABS: Appearance Urine Clear (Clear); Bilirubin Urine Negative (Negative); Blood Urine Negative (Negative); Color Urine Yellow (Yellow); Glucose Urine UA Negative (Negative); Ketones Urine Negative (Negative); Leukocyte Esterase Ur Negative LEU/UL (NEGATIVE); Nitrate Urine Negative (Negative); Protein Urine Negative (Negative); Specific Grav Ur 1.006 (1.001-1.035); Urobilinogen Urine 0.2 mg/dL (<2.0); pH Urine 6.5 (5.0-9.0)
[2023-07-10 16:30] LABS: Add Urine Microscopic? NO
[2023-07-10] MEDS: NIFEdipine 10 MG CAPSULE PO ×2 (17:10→18:48)
[2023-07-10] MEDS: CYCLOBENZAPRINE HCL 10 MG TABLET PO (17:10)
--- NOTE | 2023-07-10 20:27 | PC.NURSE ---
Addendum entered by Alina Whitman RN 07/10/23 20:32: 1740- Annie GILMANM called unit for update on this pt. RN reported maternal and status. CNM gave orders for rx for procardia and flexeril as well as orders to discharge. Original Note: Annie Carlton CNM called unit for update on this pt. RN reported maternal and status. CNM gave orders for rx for procardia and flexeril as well as orders to discharge.
--- NOTE | 2023-07-13 15:33 | P.PNOB_ITS ---
OB - Triage/Final Diagnosis Visit Information Date of evaluation: 07/10/23 Reason for evaluation: threatened labor Comments/Additional reasons for admission: I have assessed the risk for this patient, Mariel Gilbert, and determined that she would benefit from observation care. Evaluation Laboratory results: Laboratory Tests 07/10/23 15:34 Urine Color Yellow Urine Appearance Clear Urine pH 6.5 Ur Specific [place] 1.006 Urine Protein Negative Urine Glucose (UA) Negative Urine Ketones Negative Ur Blood (Man) Negative Urine Nitrate Negative Urine Bilirubin Negative Urine Urobilinogen 0.2 Ur Leukocyte Esterase Negative
== END 2023-07-10 20:13 | disposition home or self-care (01) ==
PROVIDERS: Advanced Practice Midwife; Admitting Provider Obstetrics & Gynecology; Visit Provider Obstetrics & Gynecology
DX: O47.03 False labor before 37 completed weeks of gestation, third trimester (principal); O26.893 Other specified pregnancy related conditions, third trimester; R10.9 Unspecified abdominal pain; Z3A.35 35 weeks gestation of pregnancy
CPT/HCPCS: 81003; 84112; 87086; 87088; A9270; G0378; G0379

== ENCOUNTER 2023-07-13 11:04 | Observation (INO) | payer OTHER, SELFPAY ==
[2023-07-13 11:21] VITALS: PULSE 119; O2SAT 97
[2023-07-13 11:22] VITALS: BP 111/71; PULSE 115
[2023-07-13 11:26] VITALS: PULSE 125; O2SAT 97
[2023-07-13 11:30] VITALS: BP 117/74; PULSE 112
[2023-07-13 11:31] VITALS: PULSE 109; O2SAT 100
[2023-07-13 11:45] VITALS: BP 123/70; PULSE 113
[2023-07-13 12:15] LABS: Basophils Percent Auto 0.4 % (0.2-1.2); Eosinophils Absolute Auto 0.1 K/mm3 (0-0.3); Eosinophils Percent Auto 0.6 % (0-4.4); Hemoglobin 11.6 g/dL (12.0-15.0); Immature Granulocyte Absolute 0.07 K/mm3 (0.00-0.031); Immature Granulocyte Percent A 0.7 % (0-0.5); Lymphocytes Absolute Auto 2.06 K/mm3 (0.9-3.2); Lymphocytes Percent Auto 20.2 % (18.3-44.2); Mean Corpuscular HGB Conc 32.2 g/dl (32-36); Mean Corpuscular Hemoglobin 28.4 pg (26-34); Mean Platelet Volume 10.4 fl (7.4-10.4); Monocytes Absolute Auto 0.7 K/mm3 (0.1-0.6); Monocytes Percent Auto 6.6 % (2.6-8.5); Neutrophils Absolute Auto 7.3 K/mm3 (1.3-6.7); Neutrophils Percent Auto 71.5 % (45.5-73.1); Platelet Count Result 220 k/mm3 (150-375); Red Blood Count 4.09 M/mm3 (4.2-5.4); Red Cell Distribution Width 13.9 % (11.5-14.5); White Blood Count 10.2 K/mm3 (4.5-10.0)
[2023-07-13 12:18] LABS: Appearance Urine Clear (Clear); Bacteria Urine 1+ /hpf; Bilirubin Urine Negative (Negative); Blood Urine Negative (Negative); Color Urine Yellow (Yellow); Glucose Urine UA Negative (Negative); Ketones Urine Negative (Negative); Leukocyte Esterase Ur Trace LEU/UL (Negative); Nitrate Urine Negative (Negative); Non Pathogenic Casts 0-2; Protein Urine Negative (Negative); RBC Urine 0-2 /hpf (0-2); Specific Grav Ur 1.008 (1.001-1.035); Squamous Epithelial Cell Urine Occasional /hpf (Few); Urobilinogen Urine 0.2 mg/dL (<2.0)
[2023-07-13 12:21] LABS: Alanine Aminotransferase 11 U/L (6-35); Albumin Level 3.4 g/dL (3.5-5.1); Alkaline Phosphatase 74 U/L (38-126); Anion Gap 6 mmol/L (8-16); Aspartate Amino Transferase 17 U/L (14-36); Bilirubin,Total 0.5 mg/dL (0.2-1.3); Blood Urea Nitrogen 4 mg/dL (7-17); Calcium 8.6 mg/dL (8.4-10.2); Carbon Dioxide 19 mmol/L (22-30); Chloride 107 mmol/L (98-107); Estimated Glomerular Filt Rate > 60; Glucose 81 mg/dL (65-110); Potassium 3.6 mmol/L (3.4-5.0); Sodium 132 mmol/L (137-145)
[2023-07-13 12:25] LABS: Add Urine Microscopic? YES
--- NOTE | 2023-07-13 13:27 | OBADM ---
This patient, Mariel Gilbert, admitted to the OB room OB Post 111 for observation. Patient/family oriented to hospital policies and general routines including ID bracelet, bed and alarms, visiting hours, pain management, procedures, bathroom and other care routines, personal items, smoking policy, room service/diet, and visiting hours. Patient/Family are encouraged to report perceived risks to care and to ask questions if they do not understand what they are told or what they should do.
--- NOTE | 2023-07-16 15:20 | PM.OBTRLD ---
OB - Triage/Final Diagnosis Visit Information Date of evaluation: 07/13/23 Reason for evaluation: threatened labor Comments/Additional reasons for admission: I have assessed the risk for this patient, Mariel Gilbert, and determined that she would benefit from observation care. Evaluation Laboratory results: Laboratory Tests 07/13/23 07/13/23 11:52 11:53 WBC 10.2 H RBC 4.09 L Hgb 11.6 L Hct 36.0 L MCV 88.0 MCH 28.4 MCHC 32.2 RDW 13.9 Plt Count 220 MPV 10.4 Immature Gran % (Auto) 0.7 H Neut % (Auto) 71.5 Lymph % (Auto) 20.2 [place] % (Auto) 6.6 Eos % (Auto) 0.6 Baso % (Auto) 0.4 Lymph # (Auto) 2.06 [place] # (Auto) 0.7 H Eos # (Auto) 0.1 Baso # (Auto) 0.0 Abs Immat Gran (auto) 0.07 H Absolute Neuts (auto) 7.3 H Absolute Nucleated RBC 0.0 Nucleated RBC % 0.0 Sodium 132 L Potassium 3.6 Chloride 107 Carbon Dioxide 19 L Anion Gap 6 L BUN 4 L Creatinine 0.40 L Estim Creat Clear Calc Not Reportable Estimated GFR > 60 Glucose 81 Calcium 8.6 Total Bilirubin 0.5 AST 17 ALT 11 Alkaline Phosphatase 74 Total Protein 7.0 Albumin 3.4 L Urine Color Yellow Urine Appearance Clear Urine pH 7.0 Ur Specific [place] 1.008 Urine Protein Negative Urine Glucose (UA) Negative Urine Ketones Negative Ur Blood (Man) Negative Urine Nitrate Negative Urine Bilirubin Negative Urine Urobilinogen 0.2 Leukocyte Esterase Rfl Trace H Urine RBC 0-2 Urine WBC 6-10 H Ur Squamous Epith Cells Occasional Urine Bacteria 1+ H Urine Casts 0-2
[2023-07-20 18:32] LABS: Chenodeoxycholic Acid 0.7 umol/L (< OR = 3.9); Cholic Acid 0.7 umol/L (< OR = 2.8); Deoxycholic Acid <0.5 umol/L (< OR = 2.3); Total Bile Acids <1.5 umol/L (< OR = 8.3)
== END 2023-07-13 13:20 | disposition home or self-care (01) ==
PROVIDERS: Admitting Provider Obstetrics & Gynecology; Visit Provider Obstetrics & Gynecology
DX: O47.03 False labor before 37 completed weeks of gestation, third trimester (principal); R10.9 Unspecified abdominal pain; Z3A.35 35 weeks gestation of pregnancy
CPT/HCPCS: 36415; 80053; 81001; 82542; 85025; 87086; G0378; G0379

== ENCOUNTER 2023-07-16 12:09 | Outpatient (CLI) | payer OTHER, SELFPAY ==
--- NOTE | ~2023-07-16 | US_ITS ---
EXAMINATION: US OB limited w BPP DATE: 07/16/2023 13:14 INDICATION: Biophysical profile and amniotic fluid index assessment, gestational diabetes, third trim dixie TECHNIQUE: Real-time pelvic ultrasound was performed. The interpreting radiologist was not present fo r the study. COMPARISON: None. FINDINGS: There is a single living fetus in vertex presentation. The placenta is anterior. heart rate is 169 beats per minute (bpm). Biophysical profile performed by the technologist: breathing (30 sec sustained breathing in 30 minutes): 2 out of 2 movement (3 gross body movements in 30 minutes): 2 out of 2 tone (one episode of zptihmh-ozcyhuopq-bowpecl limb movement): 2 out of 2 Amniotic fluid pocket (2 cm): 2 out of 2 Total score: 8 out of 8 IMPRESSION: 1. Single living fetus in vertex presentation. 2. Biophysical profile 8 out of 8. Reviewed, dictated and finalized at location A.
[2023-07-16 12:31] VITALS: BP 127/67; PULSE 111
[2023-07-16 12:45] VITALS: BP 130/72; PULSE 112
[2023-07-16 12:50] VITALS: BP 127/67
--- NOTE | 2023-07-16 14:37 | PC.NURSE ---
Orders received for BPP and HEATH, Annie Carlton CNM notified of negative ROM plus and reactive NST. Annie Carlton CNM notified of ultrasound results. Patient with complaint of contractions, toco reapplied. No contractions felt per palpation or toco. Annie Carlton CNM notified, okay to discharge. Patient given instructions on when to return or when to call OBGYN. Patient in agreement with plan.
== END 2023-07-16 14:40 | disposition home or self-care (01) ==
LOC: ANHOBOP 12:14 → ANHLDR 12:16
PROVIDERS: Visit Provider Obstetrics & Gynecology
DX: O13.9 Gestational [pregnancy-induced] hypertension without significant proteinuria, unspecified trimester (principal); Z3A.00 Weeks of gestation of pregnancy not specified
CPT/HCPCS: 59025; 76815; 76819; 84112; 99199

== ENCOUNTER 2023-07-20 12:45 | Outpatient (CLI) | payer OTHER, SELFPAY ==
[2023-07-20 14:06] LABS: Basophils Percent Auto 0.4 % (0.2-1.2); Eosinophils Absolute Auto 0.1 K/mm3 (0-0.3); Eosinophils Percent Auto 0.5 % (0-4.4); Hematocrit 35.9 % (37.0-47.0); Hemoglobin 11.5 g/dL (12.0-15.0); Immature Granulocyte Absolute 0.08 K/mm3 (0.00-0.031); Immature Granulocyte Percent A 0.8 % (0-0.5); Lymphocytes Absolute Auto 1.91 K/mm3 (0.9-3.2); Lymphocytes Percent Auto 18.5 % (18.3-44.2); Mean Corpuscular Hemoglobin 28.4 pg (26-34); Mean Corpuscular Volume 88.6 fl (80-100); Mean Platelet Volume 10.4 fl (7.4-10.4); Monocytes Absolute Auto 0.7 K/mm3 (0.1-0.6); Monocytes Percent Auto 6.3 % (2.6-8.5); Neutrophils Absolute Auto 7.6 K/mm3 (1.3-6.7); Neutrophils Percent Auto 73.5 % (45.5-73.1); Platelet Count Result 204 k/mm3 (150-375); Red Blood Count 4.05 M/mm3 (4.2-5.4); Red Cell Distribution Width 13.8 % (11.5-14.5); White Blood Count 10.4 K/mm3 (4.5-10.0)
[2023-07-20 14:16] LABS: Prothrombin Time 13.8 Seconds (11.1-14.7)
[2023-07-20 14:17] LABS: Anion Gap 10 mmol/L (8-16); Blood Urea Nitrogen 5 mg/dL (7-17); Calcium 8.7 mg/dL (8.4-10.2); Carbon Dioxide 20 mmol/L (22-30); Chloride 105 mmol/L (98-107); Estimated Glomerular Filt Rate > 60; Glucose 108 mg/dL (65-110); Potassium 3.7 mmol/L (3.4-5.0); Sodium 135 mmol/L (137-145)
[2023-07-20 14:18] LABS: Alanine Aminotransferase 11 U/L (6-35); Albumin Level 3.4 g/dL (3.5-5.1); Alkaline Phosphatase 78 U/L (38-126); Aspartate Amino Transferase 18 U/L (14-36); Bilirubin,Total 0.4 mg/dL (0.2-1.3); Fibrinogen 517 mg/dl (215-510); Partial Thromboplastin Time 23.2 SECONDS (22.3-36.8)
[2023-07-20 14:30] VITALS: BP 118/70; PULSE 112
[2023-07-20 14:46] VITALS: BP 118/70; PULSE 103
[2023-07-28 18:36] LABS: Chenodeoxycholic Acid 0.8 umol/L (< OR = 3.9); Cholic Acid <0.5 umol/L (< OR = 2.8); Deoxycholic Acid <0.5 umol/L (< OR = 2.3); Total Bile Acids <1.5 umol/L (< OR = 8.3)
== END 2023-07-20 15:00 | disposition home or self-care (01) ==
LOC: ANHOBOP 12:53 → ANHOBPP 12:55
PROVIDERS: Obstetrics & Gynecology; Visit Provider Advanced Practice Midwife
DX: R17 Unspecified jaundice (principal)
CPT/HCPCS: 36415; 59025; 80048; 80076; 82542; 85025; 85384; 85610; 85730; 99199

== ENCOUNTER 2023-07-24 00:03 | Inpatient (IN) | payer OTHER, SELFPAY ==
[2023-07-24] VITALS (55 sets, daily range): BP systolic 99–135; BP diastolic 50–94; PULSE 82–113; RESP 16–17; TEMP 36.2–37.1; BMI 39.5
[2023-07-24] MEDS: miSOPROStol 25 MCG TABLET XX (00:45)
--- NOTE | 2023-07-24 00:57 | LDADM ---
This patient, Mariel Gilbert, was admitted to Labor/Delivery/Recovery 108 on 07/24/23 at 00:03. Plans for labor, pain management and were discussed with patient. Patient/family oriented to hospital policies and general routines including ID bracelet, bed and alarms, visiting hours, pain management, procedures, bathroom and other care routines, personal items, smoking policy, room service/diet and guest tray routines, infant security routines, and visiting hours. Patient/Family are encouraged to report perceived risks to care and to ask questions if they do not understand what they are told or what they should do. See OBIX for further documentation.
--- NOTE | 2023-07-24 01:34 | WPDOBADMIT ---
Obstetrics - Admit Note Admission Note: record reviewed. No pertinent additions to the history and/or any subsequent changes in the physical findings that are not consistent with the expected course of the were found. Pt admitted for IOL, GDMA-2 and cholestasis, anticipate vaginal delivery Additions to the history and/or subsequent changes in the physical findings follow. None.
[2023-07-24 01:44] LABS: Basophils Absolute Auto 0.1 K/mm3 (0.0-0.1); Basophils Percent Auto 0.4 % (0.2-1.2); Eosinophils Absolute Auto 0.1 K/mm3 (0-0.3); Eosinophils Percent Auto 0.8 % (0-4.4); Hematocrit 34.7 % (37.0-47.0); Hemoglobin 11.2 g/dL (12.0-15.0); Immature Granulocyte Absolute 0.13 K/mm3 (0.00-0.031); Lymphocytes Absolute Auto 2.76 K/mm3 (0.9-3.2); Lymphocytes Percent Auto 20.7 % (18.3-44.2); Mean Corpuscular HGB Conc 32.3 g/dl (32-36); Mean Corpuscular Hemoglobin 28.1 pg (26-34); Mean Corpuscular Volume 87.2 fl (80-100); Mean Platelet Volume 10.9 fl (7.4-10.4); Monocytes Percent Auto 7.1 % (2.6-8.5); Neutrophils Absolute Auto 9.3 K/mm3 (1.3-6.7); Platelet Count Result 236 k/mm3 (150-375); Red Blood Count 3.98 M/mm3 (4.2-5.4); Red Cell Distribution Width 13.7 % (11.5-14.5); White Blood Count 13.3 K/mm3 (4.5-10.0)
[2023-07-24 02:03] LABS: Alanine Aminotransferase 12 U/L (6-35); Albumin Level 3.5 g/dL (3.5-5.1); Alkaline Phosphatase 82 U/L (38-126); Anion Gap 5 mmol/L (8-16); Aspartate Amino Transferase 19 U/L (14-36); Bilirubin,Total 0.4 mg/dL (0.2-1.3); Blood Urea Nitrogen 6 mg/dL (7-17); Calcium 8.2 mg/dL (8.4-10.2); Carbon Dioxide 21 mmol/L (22-30); Chloride 106 mmol/L (98-107); Estimated CRCL calculation 153 ml/min; Estimated Glomerular Filt Rate > 60; Glucose 132 mg/dL (65-110); Potassium 3.6 mmol/L (3.4-5.0); Sodium 132 mmol/L (137-145); Uric Acid 3.4 mg/dL (2.5-7.5)
--- NOTE | 2023-07-24 02:52 | WPDANESEPPF ---
Anes - Initial Pre Proc Eval Procedure: Labor epidural Date/Time: 07/24/23 02:52 Surgeon: Rene Gotti MD Pre Op Diagnosis: Abdominal pain with contractions Pre Op Diagnosis: IOL Patient Data Age: 28 Gender: F Height: 1.57 m Weight: 98 kg Last Vital Signs Pulse 90 07/24/23 02:45 BP 112/63 07/24/23 02:45 Allergies Allergy/AdvReac Type Severity Reaction Status Date / Time aspirin Allergy Unknown Nausea and Verified 02/03/23 14:56 Vomiting prednisone Allergy Rash Verified 02/03/23 14:56 Home Medications Medication Instructions Recorded Confirmed Type cyclobenzaprine 10 mg tablet 10 mg PO BID #14 tabs 07/10/23 Rx nifedipine 30 mg tablet,extended 30 mg PO DAILY #7 tabs 07/10/23 Rx release 24 hr (Procardia XL) nitrofurantoin 100 mg PO Q12H #14 caps 07/13/23 Rx monohydrate/macrocrystals 100 mg capsule (Macrobid) Laboratory Tests 07/24/23 07/24/23 01:34 01:35 WBC 13.3 H K/mm3 (4.5-10.0) RBC 3.98 L M/mm3 (4.2-5.4) Hgb 11.2 L g/dL (12.0-15.0) Hct 34.7 L % (37.0-47.0) MCV 87.2 fl (80-100) MCH 28.1 pg (26-34) MCHC 32.3 g/dl (32-36) RDW 13.7 % (11.5-14.5) Plt Count 236 k/mm3 (150-375) MPV 10.9 H fl (7.4-10.4) Immature Gran % (Auto) 1.0 H % (0-0.5) Neut % (Auto) 70.0 % (45.5-73.1) Lymph % (Auto) 20.7 % (18.3-44.2) [place] % (Auto) 7.1 % (2.6-8.5) Eos % (Auto) 0.8 % (0-4.4) Baso % (Auto) 0.4 % (0.2-1.2) Lymph # (Auto) 2.76 K/mm3 (0.9-3.2) [place] # (Auto) 1.0 H K/mm3 (0.1-0.6) Eos # (Auto) 0.1 K/mm3 (0-0.3) Baso # (Auto) 0.1 K/mm3 (0.0-0.1) Abs Immat Gran (auto) 0.13 H K/mm3 (0.00-0.031) Absolute Neuts (auto) 9.3 H K/mm3 (1.3-6.7) Absolute Nucleated RBC 0.0 K/mm3 (0.0-0.012) Nucleated RBC % 0.0 % (0.0-0.2) Sodium 132 L mmol/L (137-145) Potassium 3.6 mmol/L (3.4-5.0) Chloride 106 mmol/L (98-107) Carbon Dioxide 21 L mmol/L (22-30) Anion Gap 5 L mmol/L (8-16) BUN 6 L mg/dL (7-17) Creatinine 0.50 L mg/dL (0.7-1.0) Estim Creat Clear Calc 153 ml/min Estimated GFR > 60 (59 - ) Glucose 132 H mg/dL (65-110) Uric Acid 3.4 mg/dL (2.5-7.5) Calcium 8.2 L mg/dL (8.4-10.2) Total Bilirubin 0.4 mg/dL (0.2-1.3) AST 19 U/L (14-36) ALT 12 U/L (6-35) Alkaline Phosphatase 82 U/L (38-126) Total Protein 7.0 g/dL (6.3-8.2) Albumin 3.5 g/dL (3.5-5.1) RPR Pending : gestational age HCG: positive Patient hx anesthesia problems: none Family hx anesthesia problems: none Results Review: All pre-operative results and documents have been reviewed as part of the pre-operative evaluation. [facility] Past Medical History Medical History Allergies Gestational diabetes Gestational hypertension Headache History of smoking Marijuana abuse Obesity (BMI 35.0-39.9 without comorbidity) Surgical History Surgical History History of appendectomy History of tonsillectomy Family History Family History Grandparent Diabetes mellitus Depression Cancer Hypertension Daughter No problems noted. Father Depression Mother Depression Diverticulitis Crohn disease Social History Social History Smoking status: Former smoker Tobacco type: cigarettes Second hand tobacco smoke exposure: No Smoking end date: 11/22/18 Alcohol intake: never Substance use: never Substance use type: marijuana Lack of Transportation: No Lack of Food: Never True Current Housing: I Have Housing C
--- NOTE | 2023-07-24 04:36 | PM.OBPNLAB ---
Pain Control Date/time seen: 07/24/23 04:36 SVE 2/thick/-3 AROM small amount of clear, odorless fluid, anticipate vaginal delivery
[2023-07-24 04:45] LABS: Glucose Point of Care 85 mg/dl (65-105)
[2023-07-24] MEDS: LACTATED RINGERS 1,000 ML 125 ML IV CONT ×2 (06:20→14:47)
[2023-07-24] MEDS: OXYTOCIN 30 UNITS/NS 500 ML 30 UNITS/500 ML BAG IV CONT (06:21)
[2023-07-24] MEDS: INSULIN HUMAN NPH (*BKC) 100 UNITS/ML 8 UNITS SUB-Q (08:16)
[2023-07-24] MEDS: INSULIN ASPART (*BKC) 100 UNITS/ML 8 UNITS SUB-Q (08:17)
[2023-07-24 08:20] LABS: Glucose Point of Care 88 mg/dl (65-105)
[2023-07-24] MEDS: ONDANSETRON INJ 4 MG/2 ML VIAL IV PUSH (10:43)
[2023-07-24 11:48] LABS: Glucose Point of Care 116 mg/dl (65-105)
[2023-07-24] MEDS: INSULIN ASPART (*BKC) 100 UNITS/ML 10 UNITS SUB-Q (12:20)
--- NOTE | 2023-07-24 12:37 | P.PNOB_ITS ---
OB - PN: Subj Subjective Date/time seen: 07/24/23 12:37 US, Vertex, continue pitocin, FHR category 1, anticipate vaginal delivery OB - PN: Obj Data Labs 07/24/23 01:34 07/24/23 01:34 Labs: Laboratory Results - last 24 hr 07/24/23 07/24/23 07/24/23 01:34 04:41 08:12 WBC 13.3 H RBC 3.98 L Hgb 11.2 L Hct 34.7 L MCV 87.2 MCH 28.1 MCHC 32.3 RDW 13.7 Plt Count 236 MPV 10.9 H Immature Gran % (Auto) 1.0 H Neut % (Auto) 70.0 Lymph % (Auto) 20.7 [place] % (Auto) 7.1 Eos % (Auto) 0.8 Baso % (Auto) 0.4 Lymph # (Auto) 2.76 [place] # (Auto) 1.0 H Eos # (Auto) 0.1 Baso # (Auto) 0.1 Abs Immat Gran (auto) 0.13 H Absolute Neuts (auto) 9.3 H Absolute Nucleated RBC 0.0 Nucleated RBC % 0.0 Sodium 132 L Potassium 3.6 Chloride 106 Carbon Dioxide 21 L Anion Gap 5 L BUN 6 L Creatinine 0.50 L Estim Creat Clear Calc 153 Estimated GFR > 60 Glucose 132 H POC Capillary Glucose 85 88 Uric Acid 3.4 Calcium 8.2 L Total Bilirubin 0.4 AST 19 ALT 12 Alkaline Phosphatase 82 Total Protein 7.0 Albumin 3.5 Blood Type A Positive Antibody Screen Negative 07/24/23 11:45 WBC RBC Hgb Hct MCV MCH MCHC RDW Plt Count MPV Immature Gran % (Auto) Neut % (Auto) Lymph % (Auto) [place] % (Auto) Eos % (Auto) Baso % (Auto) Lymph # (Auto) [place] # (Auto) Eos # (Auto) Baso # (Auto) Abs Immat Gran (auto) Absolute Neuts (auto) Absolute Nucleated RBC Nucleated RBC % Sodium Potassium Chloride Carbon Dioxide Anion Gap BUN Creatinine Estim Creat Clear Calc Estimated GFR Glucose POC Capillary Glucose 116 H Uric Acid Calcium Total Bilirubin AST ALT Alkaline Phosphatase Total Protein Albumin Blood Type Antibody Screen OB - PN A/P Time Spent With Patient Time: Total time spent is greater than 50% in coordination of care (as documented) at patient's floor/unit and/or counseling patient:
[2023-07-24 16:13] LABS: Glucose Point of Care 75 mg/dl (65-105)
[2023-07-24] MEDS: INSULIN ASPART (*BKC) 100 UNITS/ML 6 UNITS SUB-Q (17:40)
[2023-07-24] MEDS: INSULIN HUMAN NPH (*BKC) 100 UNITS/ML 36 UNITS SUB-Q (20:42)
[2023-07-24] MEDS: ACETAMINOPHEN 500 MG TABLET 1000 MG PO (20:46)
[2023-07-24] MEDS: AMPICILLIN 2 GM/NS 100 ML 2 GM/100 ML BAG IVPB (22:20)
[2023-07-25] VITALS (256 sets, daily range): BP systolic 90–145; BP diastolic 27–105; PULSE 43–147; RESP 15–18; TEMP 36.4–37.2; O2SAT 69–100
[2023-07-25 00:03] LABS: Glucose Point of Care 119 mg/dl (65-105)
[2023-07-25 00:03] LABS: Glucose Point of Care 93 mg/dl (65-105)
[2023-07-25] MEDS: LACTATED RINGERS 1,000 ML 125 ML IV CONT ×3 (00:57→13:29)
[2023-07-25] MEDS: OXYTOCIN 30 UNITS/NS 500 ML 30 UNITS/500 ML BAG IV CONT (00:58)
[2023-07-25] MEDS: fentaNYL CITRATE INJ (*CRX) 100 MCG/2 ML VIAL 50 MCG IV PUSH (03:34)
[2023-07-25 04:13] LABS: Glucose Point of Care 83 mg/dl (65-105)
[2023-07-25] MEDS: fentaNYL CITRATE INJ (*CRX) 100 MCG/2 ML VIAL IV PUSH ×4 (04:46→09:41)
[2023-07-25] MEDS: AMPICILLIN 1 GM/NS 50 ML 1 GM/50 ML BAG IVPB ×4 (06:27→19:27)
[2023-07-25 07:56] LABS: Glucose Point of Care 79 mg/dl (65-105)
[2023-07-25] MEDS: ursodioL 300 MG CAPSULE PO ×2 (08:07→20:52)
[2023-07-25] MEDS: INSULIN HUMAN NPH (*BKC) 100 UNITS/ML 8 UNITS SUB-Q (09:01)
[2023-07-25] MEDS: INSULIN ASPART (*BKC) 100 UNITS/ML 8 UNITS SUB-Q (09:03)
--- NOTE | 2023-07-25 09:08 | PM.OBPNLAB ---
Pain Control Date/time seen: 07/25/23 09:08 SVE by RN /-2, pt requesting epidural, FHR category 1, contractions every 3 min
[2023-07-25] MEDS: ONDANSETRON INJ 4 MG/2 ML VIAL IV PUSH ×2 (10:28→14:45)
[2023-07-25] MEDS: SODIUM CHLORIDE 0.9% IV 300 ML 600 ML I-UTERINE (11:02)
[2023-07-25 12:08] LABS: Glucose Point of Care 81 mg/dl (65-105)
[2023-07-25 14:01] LABS: Glucose Point of Care 36 mg/dl (65-105)
[2023-07-25 14:01] LABS: Glucose Point of Care 46 mg/dl (65-105)
[2023-07-25 14:36] LABS: Glucose Point of Care 63 mg/dl (65-105)
[2023-07-25 14:36] LABS: Glucose Point of Care 46 mg/dl (65-105)
[2023-07-25 15:00] LABS: Glucose Point of Care 73 mg/dl (65-105)
[2023-07-25] MEDS: OXYTOCIN 30 UNITS/NS 500 ML 30 UNITS/500 ML BAG 999 UNITS IV CONT (17:48)
--- NOTE | 2023-07-25 17:52 | P.PCNOB_ITS ---
OB - Delivery Note Procedure Delivery date: 07/25/23 Procedure: vaginal delivery, vacuum assist Events: Gestational Diabetes (insulin) and Other (cholestasis) Intrapartal Events: Arrest of Descent and Non-Reassuring Status Induction method: AROM, Per Misoprostol Protocol and Per Pitocin Protocol Route of delivery: vacuum extraction Indication for instrumentation: other (failure to descend, maternal exhaustion) Laceration Description: None Specimen: Yes Quantitative Blood Loss (ml): 100 Anesthesia type: Epidural Disposition: Floor Baby Date of : 07/25/23 Time of : 17:35 Weeks of gestation at delivery: 37 Infant gender: Male presentation: vertex position: Left Occiput Anterior Placenta delivery description: Spontaneous Cord Vessel Description: 3 Vessels and Clamped/Cut Narrative: Dr. Gotti at and placed vacuum, Maria T Carlton CNM, pressure to green zone on kiwi vacuum at the beginning of a contraction, two pulls through one contraction, without pop off, pressure released after delivery of head and anterior shoulder easily delivered under the pubic bone.cord cut and clamped to warmer with RN and position classification manager for evaluation
[2023-07-25 17:56] LABS: Glucose Point of Care 97 mg/dl (65-105)
[2023-07-25 17:56] LABS: Glucose Point of Care 67 mg/dl (65-105)
[2023-07-25 17:56] LABS: Glucose Point of Care 66 mg/dl (65-105)
[2023-07-25] MEDS: OXYTOCIN 30 UNITS/NS 500 ML 30 UNITS/500 ML BAG 125 UNITS IV CONT (18:34)
[2023-07-25] MEDS: WITCH HAZEL 40 PADS 1 PAD TOPICAL (18:56)
[2023-07-25] MEDS: BENZOCAINE 20% AER SPR (*SP) 56 GM CAN 1 SPRAY TOPICAL (18:56)
[2023-07-25] MEDS: ACETAMINOPHEN 325 MG TABLET 650 MG PO (18:57)
--- NOTE | 2023-07-25 20:19 | PC.NURSE ---
Patient transferred to post room #282 via (W/C). Support person present. Oriented to unit, room, information board, rooming in, admission packet and security measures. Patient verbalizes understanding.
[2023-07-25] MEDS: IBUPROFEN 600 MG TABLET PO (20:52)
[2023-07-26 00:58] VITALS: BP 108/66; PULSE 92; RESP 18; TEMP 36.6; O2SAT 98
[2023-07-26] MEDS: IBUPROFEN 600 MG TABLET PO ×2 (04:54→12:47)
[2023-07-26 05:28] LABS: Glucose Point of Care 87 mg/dl (65-105)
[2023-07-26 05:31] LABS: Hematocrit 32.8 % (37.0-47.0); Hemoglobin 10.4 g/dL (12.0-15.0)
--- NOTE | 2023-07-26 07:33 | PM.OBPNVD ---
OB - PN: Subj Subjective Date/time seen: 07/26/23 07:33 pp day 1 doing well baby has IV of D10 OB - PN: Obj Data Labs 07/26/23 05:13 07/24/23 01:34 Labs: Laboratory Results - last 24 hr 07/25/23 07/25/23 07/25/23 07:51 11:56 13:46 Hgb Hct POC Capillary Glucose 79 81 46 L* 07/25/23 07/25/23 07/25/23 13:56 14:11 14:32 Hgb Hct POC Capillary Glucose 36 L* 46 L* 63 L 07/25/23 07/25/23 07/25/23 14:57 15:35 15:58 Hgb Hct POC Capillary Glucose 73 67 66 07/25/23 07/26/23 07/26/23 17:53 05:00 05:13 Hgb 10.4 L Hct 32.8 L POC Capillary Glucose 97 87 OB - PN A/P Plan day: 1 Plan: routine care Time Spent With Patient Time: Total time spent is greater than 50% in coordination of care (as documented) at patient's floor/unit and/or counseling patient: Review of Systems Review of Systems: All systems reviewed & are unremarkable except as noted in HPI and below Exam Const: General: cooperative and healthy appearing Resp: Effort & Inspection: normal respiratory effort Auscultation: clear to auscultation bilaterally GI: Other: soft Skin: General skin exam: normal color Neuro: General: patient oriented x3 Extrem: Right lower extremity: normal to inspection Left lower extremity: normal to inspection Psych: Appearance: grossly normal
[2023-07-26 07:40] VITALS: BP 94/49; PULSE 92; RESP 16; TEMP 36.9; O2SAT 100
[2023-07-26] MEDS: ursodioL 300 MG CAPSULE PO ×2 (10:19→21:45)
[2023-07-26] MEDS: MULTIVIT/MIN/PREN/FOL AC/IRON TABLET 1 TAB PO (10:19)
[2023-07-26 11:05] LABS: Rapid Plasma Reagin Non-Reactive (NonReactive)
[2023-07-26 12:40] VITALS: BP 128/81; PULSE 93; RESP 18; TEMP 36.4
--- NOTE | 2023-07-26 14:53 | WPDANLDPN2 ---
Anes-Prog Note L&D Date/Time: 07/26/23 14:53 Comfortable throughout: labor and delivery Neuraxial method: epidural Epidural/Spinal procedure site: clean & non-tender Neuro status: Neuro function grossly intact. Cardiovascular status: normal Respiratory status: normal Airway patency: baseline Mental status: baseline Post-Op hydration status: normal Vital Signs: Last Vital Signs Temp 36.4 C L 07/26/23 12:40 Pulse 93 07/26/23 12:40 Resp 18 07/26/23 12:40 BP 128/81 07/26/23 12:40 Pulse Ox 100 07/26/23 07:40 O2 Del Method Room Air 07/25/23 20:23 Pain score (VAS): 2/10 I/O: Intake & Output 07/25/23 07/26/23 07/26/23 23:59 07:59 15:59 Intake Total 1350 240 Output Total 57 Balance 1293 240 Post-procedural complaints: none Patient feedback: Patient satisfied with anesthetic care.
[2023-07-26 19:00] VITALS: BP 128/78; PULSE 87; RESP 18; TEMP 37.1; O2SAT 99
[2023-07-26] MEDS: ACETAMINOPHEN 325 MG TABLET 650 MG PO (19:13)
[2023-07-27] MEDS: ACETAMINOPHEN 325 MG TABLET 650 MG PO (05:38)
[2023-07-27 08:05] VITALS: BP 121/75; PULSE 72; RESP 16; TEMP 36.3; O2SAT 100
--- NOTE | 2023-07-27 10:50 | PM.OBPNVD ---
OB - PN: Subj Subjective Date/time seen: 07/27/23 10:51 Patient comments: no complaints, pain well controlled and tolerating diet OB - PN: Obj Data Labs 07/26/23 05:13 07/24/23 01:34 Labs: Laboratory Results - last 24 hr 07/24/23 01:35 RPR Non-reactive OB - PN A/P Plan day: 2 Plan: routine care and discharge home Time Spent With Patient Time: Total time spent is greater than 50% in coordination of care (as documented) at patient's floor/unit and/or counseling patient: Exam Const: General: comfortable and no acute distress Resp: Effort & Inspection: normal respiratory effort Auscultation: no rales, no rhonchi and no wheezes Cardio: Rate: regular rate Heart sounds: no click, no murmurs and no rubs GI: GI Palp: Yes Soft to palpation and No Tenderness to palpation present (GI) Auscultation: normal bowel sounds Extrem: General: normal to inspection, no pedal edema and no calf tenderness
--- NOTE | 2023-07-27 10:51 | P.DS_ITS ---
DS: Admitting Diagnosis Discharge Date July 27, 2023 Admitting Diagnosis term OB - DS: Summary OB Procedures : None OB Procedures Intrapartum: Spontaneous Vag Delivery OB Procedures: : None Time Spent with Patient Time attestation: Total time spent providing and/or coordinating discharge services: DS: Data Data Completed and Pending Labs on day of discharge: Labs from last 24 hours 07/24/23 01:35 RPR Non-reactive Discharge Plan Discharge Consulting providers: Maria T Carlton Discharging Clinician: Rene Gotti Patient Disposition: Home, Self-Care Activity: pelvic rest Diet: regular Patient Instructions: Antibiotic Form Stand Alone Forms: General Discharge Information Follow-up/Referrals: Rene Gotti MD [Physician] - Discharge Medications: Continued cyclobenzaprine 10 mg Tablet 10 mg PO BID Qty: 14 0RF Discontinued Humulin N NPH U-100 Insulin 100 unit/mL suspension 8 unit SUBCUT QAM insulin lispro [Humalog KwikPen Insulin] 100 unit/mL insulin pen 8 unit SUBCUT QACBREAK Humulin N NPH Insulin KwikPen 100 unit/mL (3 mL) insulin pen 36 unit SUBCUT HS insulin lispro [Humalog KwikPen Insulin] 100 unit/mL insulin pen 6 unit SUBCUT QACDINNER insulin lispro [Humalog KwikPen Insulin] 100 unit/mL insulin pen 10 unit SUBCUT QACLUNCH Date of admission: 07/24/23 00:03 Primary Care Provider: PHYSICIAN,FOOD SERVICE [employer]NER Admitting Provider: Rene Gotti Attending physician on admission: Rene Gotti Condition: Stable
--- NOTE | 2023-07-27 11:03 | PC.NURSE ---
[id number] Introductions were made and mother discussed her past history and her experience with this so far. is visualized to have a tied lower frenulum and tight upper lip frenulum. Mother states is painful and nipple is misshaped after the feeding. Bottle feeding her infant she has noticed the letting the formula come out of his mouth. Talked with Dr. Harvey concerning the difficulties of feeding for the mother. Discussed options mother. Mother will see if the treasury director [place] [employer] will release the tongue, otherwise mother will reach out to her infants [employer] to schedule a frenulectomy. Reviewed protecting the milk supply and mother states she has not been pumping as the flange sizes we have to offer her are too big and cause her pain. RN reviewed hand expression as an option to encourage her milk production. Mother states she has a pump at home that she will use. Reported to the Primary RN.
[2023-07-28 15:08] VITALS: BP 133/66; PULSE 68; RESP 18; TEMP 36.9; O2SAT 100
== END 2023-07-27 17:35 | disposition home or self-care (01) | DRG 560 ==
LOC: ANHLDR 00:08 → ANHOB2 07-25 20:21
PROVIDERS: Advanced Practice Midwife; Admitting Provider Obstetrics & Gynecology; Visit Provider Obstetrics & Gynecology
DX: O24.424 Gestational diabetes mellitus in childbirth, insulin controlled (principal); Z37.0 Single live birth; K83.1 Obstruction of bile duct; Z3A.37 37 weeks gestation of pregnancy; O26.62 Liver and biliary tract disorders in childbirth; O75.81 Maternal exhaustion complicating labor and delivery; O62.1 Secondary uterine inertia; O42.12 Full-term premature rupture of membranes, onset of labor more than 24 hours following rupture
CPT/HCPCS: 36415; 80053; 82948; 84550; 85014; 85018; 85025; 86592; 86850; 86900; 86901; 88307; A9270; J0290; J1815; J2405; J2590; J2795; J3010; J7030; J7120

== ENCOUNTER 2023-11-29 08:28 | Outpatient (CLI) | payer OTHER, SELFPAY ==
[2023-11-29 13:16] LABS: Alanine Aminotransferase 31 U/L (6-35); Albumin Level 4.3 g/dL (3.5-5.1); Alkaline Phosphatase 42 U/L (38-126); Anion Gap 9 mmol/L (8-16); Aspartate Amino Transferase 29 U/L (14-36); Bilirubin,Total 0.6 mg/dL (0.2-1.3); Blood Urea Nitrogen 13 mg/dL (7-17); Calcium 9.1 mg/dL (8.4-10.2); Carbon Dioxide 27 mmol/L (22-30); Chloride 101 mmol/L (98-107); Cholesterol 191 mg/dL (0-200); Estimated Glomerular Filt Rate > 60; Glucose 104 mg/dL (65-110); HDL Direct 36 mg/dL; Potassium 3.8 mmol/L (3.4-5.0); Sodium 137 mmol/L (137-145); Triglycerides 277 mg/dL (<150)
[2023-11-29 13:20] LABS: Basophils Absolute Auto 0.1 K/mm3 (0.0-0.1); Basophils Percent Auto 1.3 % (0.2-1.2); Eosinophils Absolute Auto 0.1 K/mm3 (0-0.3); Eosinophils Percent Auto 1.6 % (0-4.4); Hematocrit 44.7 % (37.0-47.0); Immature Granulocyte Absolute 0.02 K/mm3 (0.00-0.031); Immature Granulocyte Percent A 0.3 % (0-0.5); Lymphocytes Absolute Auto 2.59 K/mm3 (0.9-3.2); Lymphocytes Percent Auto 40.7 % (18.3-44.2); Mean Corpuscular HGB Conc 33.6 g/dl (32-36); Mean Corpuscular Hemoglobin 29.8 pg (26-34); Mean Corpuscular Volume 88.9 fl (80-100); Mean Platelet Volume 10.4 fl (7.4-10.4); Monocytes Absolute Auto 0.4 K/mm3 (0.1-0.6); Monocytes Percent Auto 6.4 % (2.6-8.5); Neutrophils Absolute Auto 3.2 K/mm3 (1.3-6.7); Neutrophils Percent Auto 49.7 % (45.5-73.1); Platelet Count Result 290 k/mm3 (150-375); Red Blood Count 5.03 M/mm3 (4.2-5.4); Red Cell Distribution Width 13.3 % (11.5-14.5); White Blood Count 6.4 K/mm3 (4.5-10.0)
[2023-11-29 13:27] LABS: LDL Cholesterol Direct 101 mg/dL
[2023-11-29 14:34] LABS: Hemoglobin A1C 5.1 % (<5.7)
== END 2023-11-29 08:29 | disposition home or self-care (01) ==
LOC: ANHGOSHLAB 08:29
PROVIDERS: Visit Provider Nurse Practitioner
DX: O24.419 Gestational diabetes mellitus in pregnancy, unspecified control (principal); Z3A.00 Weeks of gestation of pregnancy not specified
CPT/HCPCS: 36415; 80053; 80061; 83036; 84443; 85025

== ENCOUNTER 2024-09-01 08:59 | Emergency (ER) | payer OTHER, SELFPAY ==
[2024-09-01 09:04] VITALS: BP 136/87; PULSE 74; RESP 14; TEMP 36.6; O2SAT 100
--- NOTE | 2024-09-01 09:16 | ED.ABDPAIN ---
HPI - Abdominal Pain General Chief Complaint: Abdominal Pain Stated Complaint: ABDOMINAL PAIN Time Seen by Provider: 09/01/24 09:01 History of Present Illness HPI narrative: 29-year-old female presents with left lower abdominal pain since last night. Patient states the symptoms have increased throughout the night with increasing nausea. Patient states she was started on Macrobid by her MALTED [employer]K MIXER on Wednesday for UTI. Patient states she was called yesterday and started on amoxicillin related to culture result. Patient denies fevers, constipation, or diarrhea. Onset (ago): day(s) (1) Related Data Home Medications Medication Instructions Recorded Confirmed drospirenone (contraceptive) 4 mg 4 mg PO DAILY 11/26/23 12/09/23 (28) tablet (Slynd) Allergies Allergy/AdvReac Type Severity Reaction Status Date / Time aspirin Allergy Unknown Nausea and Verified 09/01/24 09:15 Vomiting prednisone Allergy Rash Verified 09/01/24 09:15 Review of Systems Review of Systems: A 10 system review of systems was completed on the patient and is negative except for what is stated in the HPI. Nursing and ancillary documentation was reviewed. Nausea and lower abdominal PMFSH Past Medical History Medical History Allergies Gestational diabetes Gestational hypertension Headache History of smoking Marijuana abuse Obesity (BMI 35.0-39.9 without comorbidity) Surgical History Surgical History History of appendectomy History of tonsillectomy Family History Family History Grandparent Diabetes mellitus Depression Cancer Hypertension Daughter No problems noted. Father Depression Mother Depression Diverticulitis Crohn disease Social History Social History Smoking status: Former smoker Tobacco type: cigarettes Second hand tobacco smoke exposure: No Smoking end date: 11/22/18 Alcohol intake: never Substance use: never Substance use type: marijuana Lack of Transportation: No Lack of Food: Never True Current Housing: I Have Housing Concerned About Future Housing: No Difficulty Paying Gas/Electric Bills: No Difficulty Paying for Meds: No Currently Unemployed: No Education: High School Diploma/GED Difficulty w/ Childcare or Family Care: No Gender identity (if verbalized by the patient): Female Spiritual care concerns: No Exam Narrative: GENERAL: Well-appearing, well-nourished, and in no acute distress. HEAD: Normocephalic, atraumatic. EYES: PERRLA and EOMI. ENT: Nares clear, no rhinorrhea or epistaxis. Mucous membranes moist. NECK: Supple. CHEST: Clear to auscultation. No respiratory distress. HEART: Regular rate and rhythm. No murmur heard. Normal peripheral pulses. ABDOMEN: Soft, left lower quadrant abdominal tenderness, suprapubic tenderness, nondistended, normal active bowel sounds. EXTREMITIES: Normal range of motion. No edema. SKIN: Warm, dry, no rash. NEURO: No focal deficits. Alert and oriented x3. PSYCH: Normal mood and affect. Course Course Emergency Course: IV, labs, pain medicine, Zofran, fluids Reevaluation(s) Reevaluation #1: Patient feeling better after fluids and medication. Will discharge home with Zofran. Patient has a script for amoxicillin to treat UTI Vital Signs Vital signs: Vital Signs Temperature 36.6 C 09/01/24 09:04 Pulse Rate 74 09/01/24 09:04 Respiratory Rate 14 09/01/24 09:04 Blood Pressure 136/87 09/01/24 09:04 Pulse Oximetry 100 09/01/24 09:04 Oxygen Delivery Room Air 09/01/24 09:04 Temperature 36.6 C 09/01/24 09:04 Pulse Rate 74 09/01/24 09:04 Respiratory Rate 14 09/01/24 09:04 Blood Pressure 136/87 09/01/24 09:04 Pulse Oximetry 100 09/01/24 09:04 Oxygen Delivery Room Air 09/01/24 09:04 MDM - Abdominal Pain MDM Narrative Medical decision making narrative: Patient showed culture result from phone which showed strep hemoph which is susceptible to cephalosporins and penicillin Medical Records Medical records narrative: Cholecystitis versus pyelo versus diverticulitis Lab Data 09/01/24 09:27 09/01/24 09:27 Labs: Lab Results 09/01/24 09/01/24 09/01/24 Range/Units 09:27 09:34 09:35 WBC 6.4 (4.5-10.0) K/mm3 RBC 4.55 (4.2-5.4) M/mm3 Hgb 13.7 (12.0-15.0) g/dL Hct 39.8 (37.0-47.0) % MCV 87.5 (80-100) fl MCH 30.1 (26-34) pg MCHC 34.4 (32-36) g/dl RDW 13.2 (11.5-14.5) % Plt Count 263 (150-375) k/mm3 MPV 10.0 (7.4-10.4) fl Immature Gran % (Auto) 0.2 (0-0.5) % Neut % (Auto) 71.4 (45.5-73.1) % Lymph % (Auto) 20.8 (18.3-44.2) % Dickenson % (Auto) 6.0 (2.6-8.5) % Eos % (Auto) 1.1 (0-4.4) % Baso % (Auto) 0.5 (0.2-1.2) % Lymph # (Auto) 1.32 (0.9-3.2) K/mm3 Dickenson # (Auto) 0.4 (0.1-0.6) K/mm3 Eos # (Auto) 0.1 (0-0.3) K/mm3 Baso # (Auto) 0.0 (0.0-0.1) K/mm3 Abs Immat Gran (auto) 0.01 (0.00-0.031) K/mm3 Absolute Neuts (auto) 4.6 (1.3-6.7) K/mm3 Absolute Nucleated RBC 0.000 (0.0-0.012) K/mm3 Nucleated RBC % 0.0 (0.0-0.2) % Sodium 137 (137-145) mmol/L Potassium 3.5 (3.4-5.0) mmol/L Chloride 104 (98-107) mmol/L Carbon Dioxide 25 (22-30) mmol/L Anion Gap 8 (4-12) mmol/L BUN 7 D (7-17) mg/dL Creatinine 0.70 (0.7-1.0) mg/dL Estim Creat Clear Calc 106 ml/min Estimated GFR > 60 (59 - ) Glucose 103 (65-110) mg/dL Lactic Acid 0.6 L (0.7-2.0) mmol/L Calcium 8.9 (8.4-10.2) mg/dL Total Bilirubin 0.6 (0.2-1.3) mg/dL AST 19 (14-36) U/L ALT 16 (6-35) U/L Alkaline Phosphatase 36 L (38-126) U/L Total Protein 7.0 (6.3-8.2) g/dL Albumin 4.3 (3.5-5.1) g/dL Lipase 138 (23-300) U/L Urine Color Pending Urine Appearance Pending Urine pH Pending Ur Specific [place] Pending Urine Protein Pending Urine Glucose (UA) Pending Urine Ketones Pending Ur Blood (Man) Pending Urine Nitrate Pending Urine Bilirubin Pending Urine Urobilinogen Pending Leukocyte Esterase Rfl Pending POC Urine HCG, Qual Negative (Negative) Discharge Plan Discharge Clinical Impression: Lower abdominal pain, UTI (urinary tract infection) Patient Disposition: Home, Self-Care Condition: Improved Instructions: Antibiotic Form, Urinary Tract Infection in Women (ED) Additional Instructions: Take medications as prescribed Increase clear fluid Return for nausea vomiting, fevers, or increasing abdominal pain Follow-up primary care provider in 1 week if symptoms continue Prescriptions: New ondansetron 4 mg tablet,disintegrating 4 mg PO Q8H PRN (Reason: nausea and vomiting) Qty: 14 0RF No Action Slynd 4 mg (28) tablet 4 mg PO DAILY Wegovy 0.25 mg/0.5 mL pen injector 0.25 mg subcut WEEKLY Qty: 2 0RF Rx Instructions: administer weeks 1 through 4 of therapy Follow-up/Referrals: UNKNOWN,DOCTOR [Primary Care Provider] - Time of Disposition: 10:06
[2024-09-01 09:40] LABS: BEDSIDEPREGUCG Negative (Negative)
[2024-09-01 09:43] LABS: Basophils Percent Auto 0.5 % (0.2-1.2); Eosinophils Absolute Auto 0.1 K/mm3 (0-0.3); Eosinophils Percent Auto 1.1 % (0-4.4); Hematocrit 39.8 % (37.0-47.0); Hemoglobin 13.7 g/dL (12.0-15.0); Immature Granulocyte Absolute 0.01 K/mm3 (0.00-0.031); Immature Granulocyte Percent A 0.2 % (0-0.5); Lymphocytes Absolute Auto 1.32 K/mm3 (0.9-3.2); Lymphocytes Percent Auto 20.8 % (18.3-44.2); Mean Corpuscular HGB Conc 34.4 g/dl (32-36); Mean Corpuscular Hemoglobin 30.1 pg (26-34); Mean Corpuscular Volume 87.5 fl (80-100); Monocytes Absolute Auto 0.4 K/mm3 (0.1-0.6); Neutrophils Absolute Auto 4.6 K/mm3 (1.3-6.7); Neutrophils Percent Auto 71.4 % (45.5-73.1); Platelet Count Result 263 k/mm3 (150-375); Red Blood Count 4.55 M/mm3 (4.2-5.4); Red Cell Distribution Width 13.2 % (11.5-14.5); White Blood Count 6.4 K/mm3 (4.5-10.0)
[2024-09-01] MEDS: SODIUM CHLORIDE 0.9% IV 1,000 ML 999 ML IV CONT (09:48)
[2024-09-01] MEDS: MORPHINE SULFATE (*CRX) 4 MG/ML INJ IV PUSH (09:49)
[2024-09-01] MEDS: ONDANSETRON INJ 4 MG/2 ML VIAL IV PUSH (09:53)
[2024-09-01 09:55] LABS: Lactic Acid Reflex 0.6 mmol/L (0.7-2.0)
[2024-09-01 09:56] LABS: Alanine Aminotransferase 16 U/L (6-35); Albumin Level 4.3 g/dL (3.5-5.1); Alkaline Phosphatase 36 U/L (38-126); Anion Gap 8 mmol/L (4-12); Aspartate Amino Transferase 19 U/L (14-36); Bilirubin,Total 0.6 mg/dL (0.2-1.3); Blood Urea Nitrogen 7 mg/dL (7-17); Calcium 8.9 mg/dL (8.4-10.2); Carbon Dioxide 25 mmol/L (22-30); Chloride 104 mmol/L (98-107); Estimated CRCL calculation 106 ml/min; Estimated Glomerular Filt Rate > 60; Glucose 103 mg/dL (65-110); Lipase 138 U/L (23-300); Potassium 3.5 mmol/L (3.4-5.0); Sodium 137 mmol/L (137-145)
[2024-09-01 10:13] LABS: Add Urine Microscopic? YES; Appearance Urine Cloudy (Clear); Bacteria Urine 3+ /hpf; Bilirubin Urine Negative (Negative); Blood Urine Negative (Negative); Color Urine Dark Yellow (Yellow); Glucose Urine UA Negative (Negative); Ketones Urine 1+ mg/dL (Negative); Leukocyte Esterase Ur 1+ LEU/UL (Negative); Need Manual Microscopic Reviewed; Nitrate Urine Negative (Negative); Non Pathogenic Casts 0-2; Protein Urine Negative (Negative); Specific Grav Ur 1.021 (1.001-1.035); Squamous Epithelial Cell Urine Many /hpf (Few); Urobilinogen Urine 0.2 mg/dL (<2.0)
[2024-09-01 11:03] VITALS: BP 106/60; PULSE 70; RESP 14; O2SAT 100
== END 2024-09-01 11:15 | disposition home or self-care (01) ==
PROVIDERS: Emergency Medicine; Emergency Provider Nurse Practitioner Family
DX: N39.0 Urinary tract infection, site not specified (principal); E66.9 Obesity, unspecified; Z68.35 Body mass index [BMI] 35.0-35.9, adult; Z87.891 Personal history of nicotine dependence
CPT/HCPCS: 36415; 80053; 81001; 81025; 83605; 83690; 85025; 87086; 96361; 96365; 96375; 99284; J0696; J2270; J2405; J7030

== ENCOUNTER 2024-09-02 12:03 | Emergency (ER) | payer OTHER, SELFPAY ==
--- NOTE | ~2024-09-02 | CT_ITS ---
EXAMINATION: CTA chest PE abdomen pel DATE: 09/02/2024 14:10 INDICATION: chest pain, tachy, SOB, RUQ pain, flank pain TECHNIQUE: Computed tomography angiography (CTA) of the chest was performed with 100 mL Omnipaque-350 intravenous contrast timed to evaluate the pulmonary arteries, followed by portal venous phase imagi ng of the abdomen and pelvis. Coronal maximum intensity projection 3D-reconstructions were created by the technologist. The dose-length product (DLP) was 1309.55 mGy-cm. Automated exposure control and i terative reconstruction technique were employed. COMPARISON: X-ray chest, same date. FINDINGS: CHEST: Lung parenchyma and airways: Segmental medial right upper lobe consolidation with surrounding acinar opacities. Lungs otherwise clear. Patent airways. Pleura: Unremarkable. Thoracic inlet, axillae and chest wall: No thyroid or soft tissue mass. Thoracic aorta: No significant dilation. No dissection. Mediastinum: Normal. Heart and pericardium: Normal. Coronary artery calcifications: Absent. Thoracic bones: No acute osseous finding. Pulmonary arteries: Study quality: Mildly limited by body habitus and motion, overall diagnostic. No pulmonary emboli detected. ABDOMEN/PELVIS: Liver: Normal. Biliary/Gallbladder: Borderline distention. No stones. No inflammatory change. No bile duct dilation. Pancreas: No mass or duct dilation. Spleen: Normal. Adrenals:No mass. Kidneys: No suspicious mass, obstructing stone, or hydronephrosis. GI tract: No small or large bowel dilation. Status post appendectomy Mesentery/Peritoneum: No ascites, mass, or free air. Retroperitoneum: No mass. Pelvis: Pelvic organs are within normal limits. Soft Tissues: Soft tissues and body wall unremarkable. Abdominopelvic bones: No acute osseous finding. IMPRESSION: No CT evidence of acute pulmonary embolus. Segmental right upper lobe pneumonia. Borderline gallbladder hydrops, without inflammatory change, obstructing stone/mass, or biliary duct dilation. This finding is most likely related to fasting, particularly if biliary labs are normal. Otherwise, no acute process detected in the chest, abdomen, or pelvis. Reviewed, dictated and finalized at location K. IMPRESSION: No CT evidence of acute pulmonary embolus. Segmental right upper lobe pneumonia. Borderline gallbladder hydrops, without inflammatory change, obstructing stone/ mass, or biliary duct dilation. This finding is most likely related to fasting, particularly if biliary labs are normal. Otherwise, no acute process detected in the chest, abdomen, or pelvis.
--- NOTE | ~2024-09-02 | XR_ITS ---
EXAMINATION: XR chest 2V DATE: 09/02/2024 12:25 INDICATION: Chest pain. Cough. Wheezing. TECHNIQUE: Frontal and lateral views of the chest were obtained. COMPARISON: None. FINDINGS: There are airspace opacities in anterior segment right upper lobe, consistent with pneumoni a. No pleural effusion or pneumothorax. The heart size is normal. IMPRESSION: 1. Right upper lobe pneumonia. Reviewed, dictated and finalized at location A.
--- NOTE | 2024-09-02 12:04 | ECG_ITS ---
Test Date: 2024-09-02 12:10:04 Measurements Intervals [place] Rate: 122 P: 30 WV: 119 QRS: 50 QRSD: 88 T: 6 QT: 337 QTc: 481 Interpretive Statements SINUS TACHYCARDIA WITH SHORT [place] INTERVAL NONSPECIFIC ST & T-WAVE ABNORMALITY ABNORMAL RHYTHM ECG No previous ECG available for comparison Electronically Signed On 09-02-2024 12:15:43 CDT by Jolly Mensah M.D.
[2024-09-02 12:28] LABS: Basophils Percent Auto 0.4 % (0.2-1.2); Eosinophils Percent Auto 0.4 % (0-4.4); Hematocrit 41.5 % (37.0-47.0); Hemoglobin 14.1 g/dL (12.0-15.0); Immature Granulocyte Absolute 0.02 K/mm3 (0.00-0.031); Immature Granulocyte Percent A 0.3 % (0-0.5); Lymphocytes Absolute Auto 0.76 K/mm3 (0.9-3.2); Lymphocytes Percent Auto 10.4 % (18.3-44.2); Mean Corpuscular Hemoglobin 29.7 pg (26-34); Mean Corpuscular Volume 87.6 fl (80-100); Mean Platelet Volume 9.6 fl (7.4-10.4); Monocytes Absolute Auto 0.3 K/mm3 (0.1-0.6); Monocytes Percent Auto 4.7 % (2.6-8.5); Neutrophils Absolute Auto 6.1 K/mm3 (1.3-6.7); Neutrophils Percent Auto 83.8 % (45.5-73.1); Platelet Count Result 265 k/mm3 (150-375); Red Blood Count 4.74 M/mm3 (4.2-5.4); White Blood Count 7.3 K/mm3 (4.5-10.0)
[2024-09-02 12:42] LABS: Alanine Aminotransferase 17 U/L (6-35); Albumin Level 4.5 g/dL (3.5-5.1); Alkaline Phosphatase 38 U/L (38-126); Anion Gap 9 mmol/L (4-12); Aspartate Amino Transferase 21 U/L (14-36); Bilirubin,Total 0.8 mg/dL (0.2-1.3); Blood Urea Nitrogen 5 mg/dL (7-17); Calcium 9.1 mg/dL (8.4-10.2); Carbon Dioxide 27 mmol/L (22-30); Chloride 100 mmol/L (98-107); Estimated Glomerular Filt Rate > 60; Glucose 99 mg/dL (65-110); Lipase 66 U/L (23-300); Potassium 3.6 mmol/L (3.4-5.0); Sodium 136 mmol/L (137-145)
[2024-09-02 12:43] LABS: Partial Thromboplastin Time 24.7 Seconds (22.3-36.8); Prothrombin Time 13.5 Seconds (11.1-14.7)
[2024-09-02 12:49] VITALS: BP 112/70; PULSE 122; RESP 18; TEMP 36.8; O2SAT 100
[2024-09-02 12:53] LABS: Troponin I < 0.012 ng/mL (0.000-0.034)
[2024-09-02] MEDS: SODIUM CHLORIDE 0.9% IV 1,000 ML 999 ML IV CONT ×3 (13:28→15:51)
--- NOTE | 2024-09-02 13:30 | ED.GENADULT ---
HPI - General Adult General Chief complaint: Chest Pain Stated complaint: Chest Pain, Abnormal EKG Time Seen by Provider: 09/02/24 13:09 History of Present Illness HPI narrative: 29-year-old female presented emergency department for evaluation for abdominal pain and chest pain. Patient reports that she had IUD removed a few days ago. Patient was then having some lower abdominal pain. Patient states she was started on Macrobid by her OB Gyne for a urinary tract infection. Patient was then switched to amoxicillin. Patient was evaluated in the emergency department on the and did feel improved with rehydration and antiemetics. Patient had a prescription for her new antibiotic at this time. Patient states after getting home she felt she had worsening symptoms. Patient describes a central chest pain and worsening right upper quadrant pain which she attributes to her gallbladder. Patient is also complaining of a headache. Related Data Home Medications Medication Instructions Recorded Confirmed drospirenone (contraceptive) 4 mg 4 mg PO DAILY 11/26/23 12/09/23 (28) tablet (Slynd) Allergies Allergy/AdvReac Type Severity Reaction Status Date / Time aspirin Allergy Unknown Nausea and Verified 09/02/24 13:13 Vomiting prednisone Allergy Rash Verified 09/02/24 13:13 Review of Systems Review of Systems: All systems reviewed & are unremarkable except as noted in HPI and below PMFSH Past Medical History Medical History (Updated 09/03/24 @ 00:00 by Background Daemon) Allergies Gestational diabetes Gestational hypertension Headache History of smoking Marijuana abuse Obesity (BMI 35.0-39.9 without comorbidity) Surgical History Surgical History History of appendectomy History of tonsillectomy Family History Family History Grandparent Diabetes mellitus Depression Cancer Hypertension Daughter No problems noted. Father Depression Mother Depression Diverticulitis Crohn disease Social History Social History Smoking status: Former smoker Tobacco type: cigarettes Second hand tobacco smoke exposure: No Smoking end date: 11/22/18 Alcohol intake: never Substance use: never Substance use type: marijuana Lack of Transportation: No Lack of Food: Never True Current Housing: I Have Housing Concerned About Future Housing: No Difficulty Paying Gas/Electric Bills: No Difficulty Paying for Meds: No Currently Unemployed: No Education: High School Diploma/GED Difficulty w/ Childcare or Family Care: No Gender identity (if verbalized by the patient): Female Spiritual care concerns: No Exam Narrative: APPEARANCE: Uncomfortable appearing HEAD: normocephalic, atraumatic. EYES: PERRLA/EOMI, conjunctivae clear. NOSE: Normal no drainage EARS:TMS clear with good light reflex. THROAT: Pharynx clear, no exudate. NECK: Supple. No adenopathy, no masses. RESPIRATORY: Airway patent, respirations nonlabored. Clear to auscultation bilaterally, no rales, rhonchi, wheezing. CARDIOVASCULAR: Regular rate and rhythm without murmurs rubs or gallops. ABDOMINAL: Right CVA and right upper quadrant tenderness to palpation MUSCULOSKELETAL: Moves all extremities. Strength/ROM intact, No edema, No calf tenderness. NEURO: Alert. Cranial nerves II through XII intact. Grossly intact SKIN: Warm, dry. Normal Color Course Course Emergency Course: Patient was treated for a pneumonia and discharged to home with medications for pain control. Patient was also treated for gastritis. Patient does have follow-up with GI. Vital Signs Vital signs: Vital Signs Temperature 98.3 F 09/02/24 12:49 Pulse Rate 122 H 09/02/24 12:49 Respiratory Rate 18 09/02/24 12:49 Blood Pressure 112/70 09/02/24 12:4
[2024-09-02] MEDS: HYDROmorphone HCL INJ (*CRX) 1 MG/ML SYR IV PUSH (13:37)
[2024-09-02] MEDS: ONDANSETRON INJ 4 MG/2 ML VIAL IV PUSH (13:37)
--- NOTE | 2024-09-02 15:29 | ECG_ITS ---
Test Date: 2024-09-02 16:03:09 Measurements Intervals [place] Rate: 112 P: 18 DE: 120 QRS: 5 QRSD: 104 T: 57 QT: 328 QTc: 449 Interpretive Statements SINUS TACHYCARDIA NONSPECIFIC ST & T-WAVE ABNORMALITY ABNORMAL RHYTHM ECG Compared to ECG 09/02/2024 12:10:04 Short [place] interval no longer present T-wave abnormality still present Electronically Signed On 09-02-2024 22:02:05 CDT by Jolly Mensah M.D.
[2024-09-02] MEDS: KETOROLAC 15 MG/ML VIAL (*BKC) IV PUSH (15:48)
[2024-09-02 15:59] LABS: Troponin I < 0.012 ng/mL (0.000-0.034)
[2024-09-02 16:00] VITALS: BP 147/72; PULSE 81; RESP 18; TEMP 37.2; O2SAT 100
[2024-09-02] MEDS: AZITHROMYCIN 250 MG TABLET 500 MG PO (16:31)
[2024-09-02] MEDS: PROCHLORPERAZINE EDISYLATE 10 MG/2 ML VIAL IV PUSH (16:32)
[2024-09-02] MEDS: AMOXICILLIN/CLAVULANATE K 875-125 MG TAB 1 TABLET PO (16:32)
[2024-09-02] MEDS: diphenhydrAMINE HCl INJ 50 MG/ML VIAL 25 MG IV PUSH (16:32)
== END 2024-09-02 16:40 | disposition home or self-care (01) ==
PROVIDERS: Emergency Medicine; Emergency Provider Emergency Medicine
DX: J18.9 Pneumonia, unspecified organism (principal); E66.9 Obesity, unspecified; Z68.35 Body mass index [BMI] 35.0-35.9, adult; Z87.891 Personal history of nicotine dependence; R00.0 Tachycardia, unspecified; R94.31 Abnormal electrocardiogram [ECG] [EKG]
CPT/HCPCS: 36415; 71046; 71275; 74177; 80053; 83690; 84484; 85025; 85610; 85730; 93005; 96361; 96374; 96375; 99284; A9270; J0780; J1171; J1200; J1885; J2405; J7030; Q9967

== ENCOUNTER 2024-09-10 17:53 | Emergency (ER) | payer OTHER, SELFPAY ==
--- NOTE | ~2024-09-10 | CT_ITS ---
CT abdomen pelvis w con Ordering provider: Selma Becker MD History: 29 years Female with . RIGHT UPPER QUADRANT PAIN . Comparison: September 10, 2024 Technique: CT abdomen and pelvis with IV and without oral contrast. Automated exposure control and it erative reconstruction technique were employed. The dose-length product was 814.35 mGy-cm. 100 mL Omn ipaque 350 was given IV. Findings: VISUALIZED LOWER CHEST: Normal. UPPER ABDOMINAL ORGANS: Liver: Hepatomegaly. Gallbladder: Distended with no stones. Spleen: Normal. Stomach/duodenum: Normal. Pancreas: Normal. Adrenals: Prominence of the medial limb of the left adrenal gland. Kidneys: Normal. PELVIC ORGANS: The bladder is underfilled. Uterus: Normal. BOWEL AND MESENTERY: Colon: No evidence of diverticulitis. Status post appendectomy. Small Bowel: Normal. No obstruction. Peritoneum/mesentery: No free air or free fluid. No mesenteric lymphadenopathy. Small mesenteric lymp h nodes. RETROPERITONEUM: Normal aorta. Prominent vessels around the left ovary with prominent left ovarian v ein suggestive of pelvic congestive syndrome. No retroperitoneal lymphadenopathy. MUSCULOSKELETAL: Superficial soft tissues: The superficial soft tissues are normal. Bones: Age appropriate degenerative changes of the spine. IMPRESSION: 1. No evidence of diverticulitis or intestinal obstruction. 2. Distended gallbladder with no definite stones. 3. Mild hepatomegaly. 4. Prominent vessels around the left ovary with prominent left ovarian vein suggestive of pelvic con gestion syndrome. Reviewed, dictated and finalized at location A. IMPRESSION: 1. No evidence of diverticulitis or intestinal obstruction. 2. Distended gallbladder with no definite stones. 3. Mild hepatomegaly. 4. Prominent vessels around the left ovary with prominent left ovarian vein garland ggestive of pelvic congestion syndrome.
[2024-09-10 17:55] VITALS: BP 150/130; PULSE 98; RESP 20; TEMP 36.3; O2SAT 100
[2024-09-10 18:35] VITALS: BP 116/57; PULSE 70; RESP 15; O2SAT 100
--- NOTE | 2024-09-10 18:52 | ED.ABDPAIN ---
HPI - Abdominal Pain General Chief Complaint: Abdominal Pain <Selma Becker MD - Last Filed: 09/10/24 19:41> Stated Complaint: gallbladder attack <Selma Becker MD - Last Filed: 09/10/24 19:41> Time Seen by Provider: 09/10/24 18:52 <Selma Becker MD - Last Filed: 09/10/24 19:41> Source: patient <Selma Becker MD - Last Filed: 09/10/24 19:41> Mode of arrival: ambulatory <Selma Becker MD - Last Filed: 09/10/24 19:41> Limitations: no limitations <Selma Becker MD - Last Filed: 09/10/24 19:41> History of Present Illness HPI narrative: 29 YEARS OLD WHITE FEMALE CAME TO THE ED FROM HOME WITH HER BY PRIVATE CAR COMPLAINING OF EPIGASTRIC PAIN RADIATING TO HER BACK LIKE SOMETHING IS STUCK THE FOR OVER A MONTH. WORSE SINCE YESTERDAY, TODAY ASSOCIATED WITH NAUSEA AND FREQUENT VOMITING. WORSE WHEN SHE LAY DOWN FLAT, NOTHING MAKE IT BETTER. HISTORY OF APPENDECTOMY, LAST MENSTRUAL PERIOD August, PATIENT DENIES ANY FEVER OR CHILLS, VAGINAL BLEEDING OR DISCHARGE, URINARY SYMPTOMS. PATIENT WAS SEEN BY DIRECTOR OUTCOMES RECENTLY AND CURRENTLY ON PRILOSEC. PATIENT DOES NOT SMOKE OR DRINK OR USE DRUGS <Selma Becker MD - Last Filed: 09/10/24 19:41> 29 YEARS OLD WHITE FEMALE CAME TO THE ED FROM HOME WITH HER BY PRIVATE CAR COMPLAINING OF EPIGASTRIC PAIN RADIATING TO HER BACK LIKE SOMETHING IS STUCK THE FOR OVER A MONTH. WORSE SINCE YESTERDAY, TODAY ASSOCIATED WITH NAUSEA AND FREQUENT VOMITING. WORSE WHEN SHE LAY DOWN FLAT, NOTHING MAKE IT BETTER. HISTORY OF APPENDECTOMY, LAST MENSTRUAL PERIOD August, PATIENT DENIES ANY FEVER OR CHILLS, VAGINAL BLEEDING OR DISCHARGE, URINARY SYMPTOMS. PATIENT WAS SEEN BY DIRECTOR OUTCOMES RECENTLY AND CURRENTLY ON PRILOSEC. PATIENT DOES NOT SMOKE OR DRINK OR USE DRUGS <Angely Weiss MD - Last Filed: 09/11/24 01:53> Related Data Home Medications: Home Medications Medication Instructions Recorded Confirmed drospirenone (contraceptive) 4 mg 4 mg PO DAILY 11/26/23 12/09/23 (28) tablet (Slynd) <Selma Becker MD - Last Filed: 09/10/24 19:41> Allergies/Adverse Reactions: Allergies Allergy/AdvReac Type Severity Reaction Status Date / Time aspirin Allergy Unknown Nausea and Verified 09/02/24 13:13 Vomiting prednisone Allergy Rash Verified 09/02/24 13:13 <Selma Becker MD - Last Filed: 09/10/24 19:41> Review of Systems Review of Systems: All systems reviewed & are unremarkable except as noted in HPI and below <Selma Becker MD - Last Filed: 09/10/24 19:41> [facility] Past Medical History Medical History: Medical History Allergies Gestational diabetes Gestational hypertension Headache History of smoking Marijuana abuse Obesity (BMI 35.0-39.9 without comorbidity) <Selma Becker MD - Last Filed: 09/10/24 19:41> Surgical History Surgical History: Surgical History History of appendectomy History of tonsillectomy <Selma Becker MD - Last Filed: 09/10/24 19:41> Family History Family History: Family History Grandparent Diabetes mellitus Depression Cancer Hypertension Daughter No problems noted. Father Depression Mother Depression Diverticulitis Crohn disease <Selma Becker MD - Last Filed: 09/10/24 19:41> Social History Social History: Social History Smoking status: Former smoker Tobacco type: cigarettes Second hand tobacco smoke exposure: No Smoking end date: 11/22/18 Alcohol intake: never Substance use: never Substance use type: marijuana Lack of Transportation: No Lack of Food: Never True Current Housing: I Have Housing Concerned About Future Housing: No Difficulty Paying Gas/Electric Bills: No Difficulty Pa
[2024-09-10] MEDS: SODIUM CHLORIDE 0.9% IV 1,000 ML 999 ML IV CONT ×2 (19:19→22:45)
[2024-09-10] MEDS: ONDANSETRON INJ 4 MG/2 ML VIAL IV PUSH ×2 (19:20→22:42)
[2024-09-10] MEDS: HYDROmorphone HCL INJ (*CRX) 1 MG/ML SYR 0.5 MG IV PUSH ×3 (19:21→22:42)
[2024-09-10 19:28] LABS: Basophils Absolute Auto 0.1 K/mm3 (0.0-0.1); Basophils Percent Auto 0.6 % (0.2-1.2); Eosinophils Absolute Auto 0.1 K/mm3 (0-0.3); Eosinophils Percent Auto 0.3 % (0-4.4); Hematocrit 41.2 % (37.0-47.0); Hemoglobin 14.3 g/dL (12.0-15.0); Immature Granulocyte Absolute 0.09 K/mm3 (0.00-0.031); Immature Granulocyte Percent A 0.5 % (0-0.5); Lymphocytes Absolute Auto 3.21 K/mm3 (0.9-3.2); Lymphocytes Percent Auto 18.5 % (18.3-44.2); Mean Corpuscular HGB Conc 34.7 g/dl (32-36); Mean Corpuscular Volume 86.4 fl (80-100); Mean Platelet Volume 9.6 fl (7.4-10.4); Monocytes Absolute Auto 0.7 K/mm3 (0.1-0.6); Monocytes Percent Auto 3.9 % (2.6-8.5); Neutrophils Absolute Auto 13.3 K/mm3 (1.3-6.7); Neutrophils Percent Auto 76.2 % (45.5-73.1); Platelet Count Result 381 k/mm3 (150-375); Red Blood Count 4.77 M/mm3 (4.2-5.4); Red Cell Distribution Width 13.4 % (11.5-14.5); White Blood Count 17.4 K/mm3 (4.5-10.0)
[2024-09-10 19:48] LABS: Alanine Aminotransferase 68 U/L (6-35); Albumin Level 4.7 g/dL (3.5-5.1); Alkaline Phosphatase 41 U/L (38-126); Anion Gap 9 mmol/L (4-12); Aspartate Amino Transferase 76 U/L (14-36); Bilirubin,Total 0.6 mg/dL (0.2-1.3); Blood Urea Nitrogen 14 mg/dL (7-17); Calcium 9.6 mg/dL (8.4-10.2); Carbon Dioxide 24 mmol/L (22-30); Chloride 105 mmol/L (98-107); Estimated CRCL calculation 106 ml/min; Estimated Glomerular Filt Rate > 60; Glucose 149 mg/dL (65-110); Lipase 309 U/L (23-300); Potassium 3.5 mmol/L (3.4-5.0); Sodium 138 mmol/L (137-145)
[2024-09-10 19:52] VITALS: BP 106/62; PULSE 82; RESP 15; O2SAT 100
[2024-09-10 19:53] LABS: BEDSIDEPREGUCG Negative (Negative)
[2024-09-10 20:02] LABS: Add Urine Microscopic? YES; Appearance Urine Cloudy (Clear); Bacteria Urine None Seen /hpf; Bilirubin Urine Negative (Negative); Blood Urine Negative (Negative); Color Urine Yellow (Yellow); Glucose Urine UA Negative (Negative); Ketones Urine Negative (Negative); Leukocyte Esterase Ur 1+ LEU/UL (Negative); Nitrate Urine Negative (Negative); Non Pathogenic Casts 0-2; Protein Urine Trace mg/dL (Negative); RBC Urine 0-2 /hpf (0-2); Squamous Epithelial Cell Urine Occasional /hpf (Few); Urobilinogen Urine 0.2 mg/dL (<2.0); pH Urine 6.5 (5.0-9.0)
[2024-09-10 22:47] VITALS: BP 118/60; PULSE 86; RESP 15; O2SAT 100
[2024-09-11] MEDS: HYDROmorphone HCL INJ (*CRX) 1 MG/ML SYR IV PUSH (00:01)
[2024-09-11] MEDS: DEXTROSE 5%/0.45% SOD CHL 500 ML IV CONT (00:24)
[2024-09-11 01:09] VITALS: BP 118/60; PULSE 96; RESP 15; O2SAT 100
== END 2024-09-11 01:09 | disposition home or self-care (01) ==
PROVIDERS: Physician Assistant; Emergency Provider Emergency Medicine
DX: R10.13 Epigastric pain (principal); E66.9 Obesity, unspecified; Z68.35 Body mass index [BMI] 35.0-35.9, adult; Z87.891 Personal history of nicotine dependence; R16.0 Hepatomegaly, not elsewhere classified; R93.89 Abnormal findings on diagnostic imaging of other specified body structures
CPT/HCPCS: 36415; 74177; 80053; 81001; 81025; 83690; 85025; 87086; 96361; 96374; 96375; 96376; 99284; J1171; J2405; J7030; Q9967

== ENCOUNTER 2024-09-11 07:21 | Outpatient (CLI) | payer OTHER, SELFPAY ==
--- NOTE | ~2024-09-11 | US_ITS ---
Limited ABDOMINAL ULTRASOUND Ordering provider: Angely Weiss MD History: . R10.9 - Unspecified abdominal pain . Comparison: None. FINDINGS: LIVER: Normal size and echotexture. Liver measures 15.8 cm. No focal hepatic lesions or perihepatic f luid collections are identified. Portal vein flow is normal. GALLBLADDER: Cholelithiasis. No evidence for sludge, gallbladder wall thickening or pericholecystic f luid collections. A negative sonographic Sosa's sign was noted. BILIARY DUCTS: No evidence for intra or extrahepatic biliary dilation. Common bile duct measures 6 mm in diameter which is within normal limits. PANCREAS: Normal echotexture and size. UPPER ABDOMINAL AORTA: Normal in caliber. IVC: Patent. FREE FLUID: None. IMPRESSION: Cholelithiasis. Otherwise, normal limited Ultrasound of the abdomen. Reviewed, dictated and finalized at location A.
== END 2024-09-11 07:22 | disposition home or self-care (01) ==
PROVIDERS: PCP Nurse Practitioner; Visit Provider Emergency Medicine
DX: R10.9 Unspecified abdominal pain (principal); K80.20 Calculus of gallbladder without cholecystitis without obstruction
CPT/HCPCS: 76705

== ENCOUNTER 2024-09-11 09:02 | Observation (INO) | payer OTHER, SELFPAY ==
[2024-09-11] VITALS (19 sets, daily range): BP systolic 102–138; BP diastolic 47–75; PULSE 78–106; RESP 13–20; TEMP 35.9–37.2; O2SAT 96–100
[2024-09-11 09:30] LABS: Basophils Percent Auto 0.4 % (0.2-1.2); Eosinophils Absolute Auto 0.1 K/mm3 (0-0.3); Eosinophils Percent Auto 0.6 % (0-4.4); Hematocrit 40.9 % (37.0-47.0); Hemoglobin 13.6 g/dL (12.0-15.0); Immature Granulocyte Absolute 0.02 K/mm3 (0.00-0.031); Immature Granulocyte Percent A 0.2 % (0-0.5); Lymphocytes Absolute Auto 1.74 K/mm3 (0.9-3.2); Lymphocytes Percent Auto 19.3 % (18.3-44.2); Mean Corpuscular HGB Conc 33.3 g/dl (32-36); Mean Corpuscular Hemoglobin 29.4 pg (26-34); Mean Corpuscular Volume 88.5 fl (80-100); Mean Platelet Volume 9.6 fl (7.4-10.4); Monocytes Absolute Auto 0.3 K/mm3 (0.1-0.6); Monocytes Percent Auto 3.8 % (2.6-8.5); Neutrophils Absolute Auto 6.8 K/mm3 (1.3-6.7); Neutrophils Percent Auto 75.7 % (45.5-73.1); Platelet Count Result 351 k/mm3 (150-375); Red Blood Count 4.62 M/mm3 (4.2-5.4); Red Cell Distribution Width 13.8 % (11.5-14.5)
[2024-09-11 09:34] LABS: BEDSIDEPREGUCG Negative (Negative)
[2024-09-11 09:43] LABS: Alanine Aminotransferase 172 U/L (6-35); Albumin Level 4.6 g/dL (3.5-5.1); Alkaline Phosphatase 44 U/L (38-126); Anion Gap 10 mmol/L (4-12); Aspartate Amino Transferase 131 U/L (14-36); Bilirubin,Total 0.7 mg/dL (0.2-1.3); Blood Urea Nitrogen 7 mg/dL (7-17); Calcium 8.9 mg/dL (8.4-10.2); Carbon Dioxide 22 mmol/L (22-30); Chloride 106 mmol/L (98-107); Estimated CRCL calculation 125 ml/min; Estimated Glomerular Filt Rate > 60; Glucose 100 mg/dL (65-110); Lipase 312 U/L (23-300); Sodium 138 mmol/L (137-145)
[2024-09-11] MEDS: HYDROmorphone HCL INJ (*CRX) 1 MG/ML SYR IV PUSH ×2 (10:38→17:18)
[2024-09-11] MEDS: ONDANSETRON INJ 4 MG/2 ML VIAL IV PUSH ×2 (10:38→17:45)
[2024-09-11] MEDS: SODIUM CHLORIDE 0.9% IV 1,000 ML 999 ML IV CONT (10:39)
--- NOTE | 2024-09-11 10:48 | ED_ITS ---
HPI - Abdominal Pain General Chief Complaint: Abdominal Pain <Thais Reina APRN - Last Filed: 09/11/24 19:52> Stated Complaint: abdominal pain <Thais Reina APRN - Last Filed: 09/11/24 19:52> Time Seen by Provider: 09/11/24 09:06 <Thais Reina APRN - Last Filed: 09/11/24 19:52> History of Present Illness HPI narrative: Patient is a 29-year-old female presents to the ER with right upper and lower quadrant pain. She reports her abdominal pain started on Wednesday, on Wednesday she started vomiting regularly. Patient reports she came in to this ER yesterday, abdominal CT scan, and was treated with pain medication. She reports they ER doctor wanted to admit her but patient did not meet criteria for admission. Patient reports she went in had abdominal ultrasound performed this morning. She presents back to the ER for increased pa in in her abdomen. Patient denies chest pain, shortness of breath, other signs of illness, or CVA tenderness. <Thais Reina APRN - Last Filed: 09/11/24 19:52> Related Data Home Medications: Home Medications Medication Instructions Recorded Confirmed drospirenone (contraceptive) 4 mg 4 mg PO DAILY 11/26/23 09/11/24 (28) tablet (Slynd) <Thais Reina APRN - Last Filed: 09/11/24 19:52> Allergies/Adverse Reactions: Allergies Allergy/AdvReac Type Severity Reaction Status Date / Time aspirin Allergy Unknown Nausea and Verified 09/11/24 09:03 Vomiting prednisone Allergy Rash Verified 09/11/24 09:03 <Thais Reina APRN - Last Filed: 09/11/24 19:52> Review of Systems Review of Systems: All systems reviewed & are unremarkable except as noted in HPI and below <Miguel Ángel Patel MD - Last Filed: 09/20/24 12:05> PMFSH Past Medical History Medical History: Medical History Allergies Gestational diabetes Gestational hypertension Headache History of smoking Marijuana abuse Obesity (BMI 35.0-39.9 without comorbidity) <Thais Reina APRN - Last Filed: 09/11/24 19:52> Surgical History Surgical History: Surgical History History of appendectomy History of tonsillectomy <Thais Reina APRN - Last Filed: 09/11/24 19:52> Family History Family History: Family History Grandparent Diabetes mellitus Depression Cancer Hypertension Daughter No problems noted. Father Depression Mother Depression Diverticulitis Crohn disease <Thais Reina APRN - Last Filed: 09/11/24 19:52> Social History Social History: Social History Smoking status: Former smoker Tobacco type: cigarettes Second hand tobacco smoke exposure: No Smoking end date: 11/22/18 Alcohol intake: never Substance use: never Substance use type: marijuana Do You Feel Safe in your Home?: Yes Lack of Transportation: No Lack of Food: Never True Current Housing: I Have Housing Concerned About Future Housing: No Difficulty Paying Gas/Electric Bills: No Difficulty Paying for Meds: No Currently Unemployed: No Education: High School Diploma/GED Difficulty w/ Childcare or Family Care: No Gender identity (if verbalized by the patient): Female Spiritual care concerns: No <Thais Reina APRN - Last Filed: 09/11/24 19:52> Exam Narrative: GENERAL: Well appearing, well-nourished, non-toxic, in no acute distress. HEAD: Normocephalic, atraumatic. NECK: Supple. No adenopathy, no masses. RESPIRATORY: Airway patent, respirations nonlabored. Clear to auscultation bilaterally, no rales, rhonchi, wheezing. CARDIOVASCULAR: Regular rate and rhythm without murmurs, rubs, or gallops. Pe ripheral pulses 2+ and equal bilaterally. ABDOMINAL: Soft, tender in RUQ and RLQ, nondistended, no hepatosplenomegaly. Normoactive BS. MUSCULOSKELETAL: Moves all extremities. Strength/ROM intact without gross deformities. SKIN: Warm, dry, normal color. No rashes. NEURO: A&O X3. Speech clear. Cranial nerves II-XII grossly intact. Steady gait. No ataxic movements. PSYCHIATRIC: Appropriate mood and affect. Normal interaction. <Thais Reina APRN - Last Filed: 09/11/24 19:52> Course ROTARY PLANER SET UP OPERATOR/PA Physician Supervision For this patient encounter, I reviewed the ROTARY PLANER SET UP OPERATOR or PA documentation, treatment plan, and medical decision making; and I had [id number] time with this patient. <Miguel Ángel Patel MD - Last Filed: 09/20/24 12:05> Consultations Consultation #1: general surgery, Dr. Guerrero <Thais Reina APRN - Last Filed: 09/11/24 19:52> Date: 09/11/24 <Thais Reina APRN - Last Filed: 09/11/24 19:52> Time: 10:30 <Thais Reina APRN - Last Filed: 09/11/24 19:52> Vital Signs Vital signs: Vital Signs Temperature 98.1 F 09/11/24 09:10 Pulse Rate 100 09/11/24 09:10 Respiratory Rate 18 09/11/24 09:10 Blood Pressure 120/67 09/11/24 09:10 Pulse Oximetry 100 09/11/24 09:10 Oxygen Delivery Room Air 09/11/24 09:10 Temperature 98.3 F 09/12/24 15:12 Pulse Rate 96 09/12/24 15:12 Respiratory Rate 18 09/12/24 15:12 Blood Pressure 105/65 09/12/24 15:12 Pulse Oximetry 98 09/12/24 15:12 Oxygen Delivery Room Air 09/12/24 08:00 Oxygen Flow Rate 8 09/11/24 16:00 <Thais Reina APRN - Last Filed: 09/11/24 19:52> Vital Signs Temperature 98.1 F 09/11/24 09:10 Pulse Rate 100 09/11/24 09:10 Respiratory Rate 18 09/11/24 09:10 Blood Pressure 120/67 09/11/24 09:10 Pulse Oximetry 100 09/11/24 09:10 Oxygen Delivery Room Air 09/11/24 09:10 Temperature 98.3 F 09/12/24 15:12 Pulse Rate 96 09/12/24 15:12 Respiratory Rate 18 09/12/24 15:12 Blood Pressure 105/65 09/12/24 15:12 Pulse Oximetry 98 09/12/24 15:12 Oxygen Delivery Room Air 09/12/24 08:00 Oxygen Flow Rate 8 09/11/24 16:00 <Miguel Ángel Patel MD - Last Filed: 09/20/24 12:05> MDM - Abdominal Pain MDM Narrative Medical decision making narrative: Patient had an abdominal ultrasound performed this morning which indicated cholelithiasis. She will be given 1 mg Dilaudid IV for pain control. Patient w ill be admitted to the hospital for pain control and surgery consult. <Thais Reina APRN - Last Filed: 09/11/24 19:52> Differential Diagnosis Differential diagnosis: Likely abdominal pain, diverticulitis, gastroenteritis, pancreatitis, small bowel obstruction and other (cholelithiasis) <Thais Reina APRN - Last Filed: 09/11/24 19:52> Lab Data Attestation: I reviewed the patient's lab results. <Thais Reina APRN - Last Filed: 09/11/24 19:52> Result diagrams: 09/12/24 04:40 09/12/24 04:40 <Thais Reina APRN - Last Filed: 09/11/24 19:52> Labs: Lab Results 09/11/24 09/11/24 Range/Units 09:25 09:32 WBC 9.0 (4.5-10.0) K/mm3 RBC 4.62 (4.2-5.4) M/mm3 Hgb 13.6 (12.0-15.0) g/dL Hct 40.9 (37.0-47.0) % MCV 88.5 (80-100) fl MCH 29.4 (26-34) pg MCHC 33.3 (32-36) g/dl RDW 13.8 (11.5-14.5) % Plt Count 351 (150-375) k/mm3 MPV 9.6 (7.4-10.4) fl Immature Gran % (Auto) 0.2 (0-0.5) % Neut % (Auto) 75.7 H (45.5-73.1) % Lymph % (Auto) 19.3 (18.3-44.2) % [place] % (Auto) 3.8 (2.6-8.5) % Eos % (Auto) 0.6 (0-4.4) % Baso % (Auto) 0.4 (0.2-1.2) % Lymph # (Auto) 1.74 (0.9-3.2) K/mm3 [place] # (Auto) 0.3 (0.1-0.6) K/mm3 Eos # (Auto) 0.1 (0-0.3) K/mm3 Baso # (Auto) 0.0 (0.0-0.1) K/mm3 Abs Immat Gran (auto) 0.02 (0.00-0.031) K/mm3 Absolute Neuts (auto) 6.8 H (1.3-6.7) K/mm3 Absolute Nucleated RBC 0.000 (0.0-0.012) K/mm3 Nucleated RBC % 0.0 (0.0-0.2) % Sodium 138 (137-145) mmol/L Potassium 4.0 (3.4-5.0) mmol/L Chloride 106 (98-107) mmol/L Carbon Dioxide 22 (22-30) mmol/L Anion Gap 10 (4-12) mmol/L BUN 7 D (7-17) mg/dL Creatinine 0.60 L (0.7-1.0) mg/dL Estim Creat Clear Calc 125 ml/min Estimated GFR > 60 (59 - ) Glucose 100 (65-110) mg/dL Calcium 8.9 (8.4-10.2) mg/dL Total Bilirubin 0.7 (0.2-1.3) mg/dL AST 131 H (14-36) U/L ALT 172 H (6-35) U/L Alkaline Phosphatase 44 (38-126) U/L Total Protein 8.0 (6.3-8.2) g/dL Albumin 4.6 (3.5-5.1) g/dL Lipase 312 H (23-300) U/L POC Urine HCG, Qual Negative (Negative) <Thais Reina APRN - Last Filed: 09/11/24 19:52> Lab Results 09/11/24 09/11/24 Range/Units 09:25 09:32 WBC 9.0 (4.5-10.0) K/mm3 RBC 4.62 (4.2-5.4) M/mm3 Hgb 13.6 (12.0-15.0) g/dL Hct 40.9 (37.0-47.0) % MCV 88.5 (80-100) fl MCH 29.4 (26-34) pg MCHC 33.3 (32-36) g/dl RDW 13.8 (11.5-14.5) % Plt Count 351 (150-375) k/mm3 MPV 9.6 (7.4-10.4) fl Immature Gran % (Auto) 0.2 (0-0.5) % Neut % (Auto) 75.7 H (45.5-73.1) % Lymph % (Auto) 19.3 (18.3-44.2) % [place] % (Auto) 3.8 (2.6-8.5) % Eos % (Auto) 0.6 (0-4.4) % Baso % (Auto) 0.4 (0.2-1.2) % Lymph # (Auto) 1.74 (0.9-3.2) K/mm3 [place] # (Auto) 0.3 (0.1-0.6) K/mm3 Eos # (Auto) 0.1 (0-0.3) K/mm3 Baso # (Auto) 0.0 (0.0-0.1) K/mm3 Abs Immat Gran (auto) 0.02 (0.00-0.031) K/mm3 Absolute Neuts (auto) 6.8 H (1.3-6.7) K/mm3 Absolute Nucleated RBC 0.000 (0.0-0.012) K/mm3 Nucleated RBC % 0.0 (0.0-0.2) % Sodium 138 (137-145) mmol/L Potassium 4.0 (3.4-5.0) mmol/L Chloride 106 (98-107) mmol/L Carbon Dioxide 22 (22-30) mmol/L Anion Gap 10 (4-12) mmol/L BUN 7 D (7-17) mg/dL Creatinine 0.60 L (0.7-1.0) mg/dL Estim Creat Clear Calc 125 ml/min Estimated GFR > 60 (59 - ) Glucose 100 (65-110) mg/dL Calcium 8.9 (8.4-10.2) mg/dL Total Bilirubin 0.7 (0.2-1.3) mg/dL AST 131 H (14-36) U/L ALT 172 H (6-35) U/L Alkaline Phosphatase 44 (38-126) U/L Total Protein 8.0 (6.3-8.2) g/dL Albumin 4.6 (3.5-5.1) g/dL Lipase 312 H (23-300) U/L POC Urine HCG, Qual Negative (Negative) <Miguel Ángel Patel MD - Last Filed: 09/20/24 12:05> Discharge Plan Discharge Clinical Impression: Cholecystitis with cholelithiasis <Thais Reina APRN - Last Filed: 09/11/24 19:52> Patient Disposition: Still a Patient <Thais Reina APRN - Last Filed: 09/11/24 19:52> Condition: Stable <Thais Reina APRN - Last Filed: 09/11/24 19:52>
--- NOTE | 2024-09-11 10:50 | PC.NURSE ---
Notified by [facility] that pt has to free of narcotic pain medications for 6 hours prior to scan. [employer] ASSET MANAGER aware.
--- NOTE | 2024-09-11 12:04 | ADMGEN ---
This patient, Mariel Gilbert, was admitted to 2 Medical Room 254-01. Patient/family oriented to hospital policies and general routines including ID bracelet, bed and alarms, visiting hours, pain management, procedures, bathroom and other care routines, personal items, smoking policy, room service/diet, and visiting hours. Information on how to activate the Rapid Response Team has been discussed. Patient/Family are encouraged to report perceived risks to care and to ask questions if they do not understand what they are told or what they should do.
--- NOTE | 2024-09-11 12:12 | P.HP_ITS ---
H&P: HPI History of Present Illness Date/Time: 09/11/24 12:12 Chief Complaint: Abdominal pain Narrative: Patient is a 29-year-old female presents to the ER with right upper and epigastric pain intermittent since a month. She reports her abdominal pain started on Wednesday, on Wednesday she started vomiting regularly. Patient reports she came in to this ER yesterday, abdominal CT scan which showed distended gallbladder with no cholelithiasis. She was treated with pain medication. She reports they ER doctor wanted to admit her but patient did not meet criteria for admission. Patient reports she went in had abdominal ultrasound performed this morning. She presents back to the ER for increased pain in her abdomen. Patient denies chest pain, shortness a breath, other signs of illness, or CVA tenderness. Review of Systems Review of Systems: - CONSTITUTIONAL: Denies weight loss, fe kunal and chills. - HEENT: Denies changes in vision and he aring - RESPIRATORY: Denies SOB and cough. - CV: Denies palpitations and CP. - GI: Reports abdominal pain, nausea, v omiting and denies diarrhea. - : Denies dysuria and urinary frequen cy. - MSK: Denies myalgia and joint pain. - SKIN: Denies rash and pruritus. - NEUROLOGICAL: Denies headache and sync ope. - PSYCHIATRIC: Denies recent changes in mood. Denies anxiety and depression. [facility] Past Medical History Medical History Allergies Gestational diabetes Gestational hypertension Headache History of smoking Marijuana abuse Obesity (BMI 35.0-39.9 without comorbidity) Surgical History Surgical History History of appendectomy History of tonsillectomy Family History Family History Grandparent Diabetes mellitus Depression Cancer Hypertension Daughter No problems noted. Father Depression Mother Depression Diverticulitis Crohn disease Social History Social History Smoking status: Former smoker Tobacco type: cigarettes Second hand tobacco smoke exposure: No Smoking end date: 11/22/18 Alcohol intake: never Substance use: never Substance use type: marijuana Lack of Transportation: No Lack of Food: Never True Current Housing: I Have Housing Concerned About Future Housing: No Difficulty Paying Gas/Electric Bills: No Difficulty Paying for Meds: No Currently Unemployed: No Education: High School Diploma/GED Difficulty w/ Childcare or Family Care: No Gender identity (if verbalized by the patient): Female Spiritual care concerns: No Meds Home Medications and Allergies Home Medications Medication Instructions Recorded Confirmed Type drospirenone (contraceptive) 4 mg 4 mg PO DAILY 11/26/23 09/11/24 History (28) tablet (Slynd) ondansetron 4 mg disintegrating 4 mg PO Q8H PRN nausea and 09/01/24 09/11/24 Rx tablet vomiting #14 tabs omeprazole 20 mg capsule,delayed 20 mg PO DAILY 14 days #14 caps 09/02/24 09/11/24 Rx release Allergies Allergy/AdvReac Type Severity Reaction Status Date / Time aspirin Allergy Unknown Nausea and Verified 09/11/24 09:03 Vomiting prednisone Allergy Rash Verified 09/11/24 09:03 Vital Signs Vital Signs - 24 hr 09/11/24 09:10 09/11/24 10:33 09/11/24 09:33 Temperature 98.1 F 99.0 F Pulse Rate 100 86 78 Respiratory Rate 18 18 20 Blood Pressure 120/67 111/69 126/63 Pulse Oximetry 100 100 100 Oxygen Delivery Room Air 09/11/24 10:34 09/11/24 11:02 09/11/24 11:32 Temperature Pulse Rate 87 92 88 Respiratory Rate 18 20 20 Blood Pressure 111/69 119/66 106/47 L Pulse Oximetry 100 98 99 Oxygen Delivery 09/11/24 12:00 Temperature 98.3 F Pulse Rate 88 Respiratory Rate 14 Blood Pressure 134/68 Pulse Oximetry 100 Oxygen Delivery H&P: Results Labs Labs: Short CBC 09/11/24 Range/Units 09:25 WBC 9.0 (4.5-10.0) K/mm3 Hgb 13.6 (12.0-15.0) g/dL Hct 40.9 (37.0-47.0) % Plt Count 351 (150-375) k/mm3 BMP 09/11/24 09:25 Sodium 138 Potassium 4.0 Chloride 106 Carbon Dioxide 22 BUN 7 D Creatinine 0.60 L Glucose 100 Calcium 8.9 Liver Function 09/11/24 Range/Units 09:25 Total Bilirubin 0.7 (0.2-1.3) mg/dL AST 131 H (14-36) U/L ALT 172 H (6-35) U/L Alkaline Phosphatase 44 (38-126) U/L Albumin 4.6 (3.5-5.1) g/dL Assessment and Plan Assessment and plan (1) Abdominal pain: Code(s): R10.9 - Unspecified abdominal pain Status: Acute Plan Patient is a 29-year-old female presents to the ER with right upper and epigastric pain intermittent since a month. She reports her abdominal pain started on Wednesday, on Wednesday she started vomiting regularly. Patient reports she came in to this ER yesterday, abdominal CT scan showed distended gallbladder with no definitive stones. Mild hepatomegaly. Prominent vessels around left ovary with prominent left ovarian vein suggestive of pelvic congestion syndrome., she was treated with pain medication.. She reports they ER doctor wanted to admit her but patient did not meet criteria for admission. Patient reports she went in had abdominal ultrasound performed this morning. Which showed cholelithiasis otherwise normal limited ultrasound of the abdomen. No evidence of intra or extrahepatic biliary dilatation. She presents back to the ER for increased pain in her abdomen. Patient denies chest pain, shortness a breath, other signs of illness, or CVA tenderness. She is admitted for further treatment. Laboratory evaluation showed normal WBC at 9 hemoglobin of 13.6 hematocrit of 41 platelet of 351. LFTs are elevated with AST of 131 ALT of 172 with normal bilirubin and alkaline phosphatase. General surgery has been consulted. Will continue IV analgesics IV antiemetics IV fluids. DVT prophylaxis SCDs Code status full code Hospitalist [facility] Advance Care Plan I have confirmed that the patient's Advanced Care Plan is present, code status is documented, or surrogate decision maker is listed in patient medical record.: Yes Medication Reconciliation I have utilized all available resources to obtain, update and review the patients current medications (includes all prescriptions, OTC, herbals, cannabis, and nutritional supplements).: Yes
--- NOTE | 2024-09-11 12:39 | PM.CNGS ---
Assessment and Plan Assessment and plan (1) Cholecystitis with cholelithiasis: Code(s): K80.10 - Calculus of gallbladder with chronic cholecystitis without obstruction Status: Acute Assessment and Plan: long discussion with patient regarding cholecystectomy versus continued conservative management, pt would like to proceed with urgent cholecystectomy at this point, NPO, antibiotics History of Present Illness Consult details Consult date: 09/11/24 Reason for consult: abdominal pain Requesting physician: Thais Reina APRN Narrative: The patient is a 29-year-old female presenting to the emergency department complaining of severe epigastric, right upper quadrant abdominal pain with radiation to her back. The patient reports the episode actually started yesterday and she did come to the emergency department at that time. The patient reports that she was diagnosed with biliary colic and discharged home with pain medication. Patient reports continued severe pain since going home. Patient also reports associated anorexia, bloating, nausea. Review of Systems Review of Systems: All systems reviewed & are unremarkable except as noted in HPI and below PMFSH Past Medical History Medical History Allergies Gestational diabetes Gestational hypertension Headache History of smoking Marijuana abuse Obesity (BMI 35.0-39.9 without comorbidity) Surgical History Surgical History History of appendectomy History of tonsillectomy Family History Family History Grandparent Diabetes mellitus Depression Cancer Hypertension Daughter No problems noted. Father Depression Mother Depression Diverticulitis Crohn disease Social History Social History Smoking status: Former smoker Tobacco type: cigarettes Second hand tobacco smoke exposure: No Smoking end date: 11/22/18 Alcohol intake: never Substance use: never Substance use type: marijuana Do You Feel Safe in your Home?: Yes Lack of Transportation: No Lack of Food: Never True Current Housing: I Have Housing Concerned About Future Housing: No Difficulty Paying Gas/Electric Bills: No Difficulty Paying for Meds: No Currently Unemployed: No Education: High School Diploma/GED Difficulty w/ Childcare or Family Care: No Gender identity (if verbalized by the patient): Female Spiritual care concerns: No Comments mother with biliary dz and cholecystectomy Meds Home Medications and Allergies Home Medications Medication Instructions Recorded Confirmed Type drospirenone (contraceptive) 4 mg 4 mg PO DAILY 11/26/23 09/11/24 History (28) tablet (Slynd) ondansetron 4 mg disintegrating 4 mg PO Q8H PRN nausea and 09/01/24 09/11/24 Rx tablet vomiting #14 tabs omeprazole 20 mg capsule,delayed 20 mg PO DAILY 14 days #14 caps 09/02/24 09/11/24 Rx release Allergies Allergy/AdvReac Type Severity Reaction Status Date / Time aspirin Allergy Unknown Nausea and Verified 09/11/24 09:03 Vomiting prednisone Allergy Rash Verified 09/11/24 09:03 Vital Signs Vital Signs - 24 hr 09/11/24 09:10 09/11/24 10:33 09/11/24 09:33 Temperature 36.7 C 37.2 C Pulse Rate 100 86 78 Respiratory Rate 18 18 20 Blood Pressure 120/67 111/69 126/63 Pulse Oximetry 100 100 100 Oxygen Delivery Room Air 09/11/24 10:34 09/11/24 11:02 09/11/24 11:32 Temperature Pulse Rate 87 92 88 Respiratory Rate 18 20 20 Blood Pressure 111/69 119/66 106/47 L Pulse Oximetry 100 98 99 Oxygen Delivery 09/11/24 12:00 Temperature 36.8 C Pulse Rate 88 Respiratory Rate 14 Blood Pressure 134/68 Pulse Oximetry 100 Oxygen Delivery Exam Const: General: cooperative, no acute distress, uncomfortable and obese HENMT: Head: normal to inspection, normocephalic and atraumatic Eyes: General: appearance normal, both eyes and all related structures Neck: Neck: normal visual inspection, full ROM and no lymphadenopathy Resp: Auscultation: clear to auscultation bilaterally Cardio: Rate: regular rate Rhythm: regular rhythm GI: Inspection: normal to inspection and distended GI Palp: Yes abdominal tenderness, Yes Soft to palpation, Yes Tenderness to palpation present (GI), No Guarding due to palpation present (GI) and No Rigid due to palpation Skin: General skin exam: normal color and no rashes or lesions noted Neuro: General: patient oriented x3 and CN's II-XI intact bilaterally Extrem: General: normal to inspection and full ROM Results Labs 09/11/24 09:25 09/11/24 09:25 Labs: Abnormal lab results 09/11/24 Range/Units 09:25 Neut % (Auto) 75.7 H (45.5-73.1) % Absolute Neuts (auto) 6.8 H (1.3-6.7) K/mm3 Creatinine 0.60 L (0.7-1.0) mg/dL AST 131 H (14-36) U/L ALT 172 H (6-35) U/L Lipase 312 H (23-300) U/L Diabetes panel 09/11/24 Range/Units 09:25 Sodium 138 (137-145) mmol/L Potassium 4.0 (3.4-5.0) mmol/L Chloride 106 (98-107) mmol/L Carbon Dioxide 22 (22-30) mmol/L BUN 7 D (7-17) mg/dL Creatinine 0.60 L (0.7-1.0) mg/dL Glucose 100 (65-110) mg/dL Calcium 8.9 (8.4-10.2) mg/dL AST 131 H (14-36) U/L ALT 172 H (6-35) U/L Alkaline Phosphatase 44 (38-126) U/L Total Protein 8.0 (6.3-8.2) g/dL Albumin 4.6 (3.5-5.1) g/dL Calcium panel 09/11/24 Range/Units 09:25 Calcium 8.9 (8.4-10.2) mg/dL Albumin 4.6 (3.5-5.1) g/dL Pituitary panel 09/11/24 Range/Units 09:25 Sodium 138 (137-145) mmol/L Potassium 4.0 (3.4-5.0) mmol/L Chloride 106 (98-107) mmol/L Carbon Dioxide 22 (22-30) mmol/L BUN 7 D (7-17) mg/dL Creatinine 0.60 L (0.7-1.0) mg/dL Glucose 100 (65-110) mg/dL Calcium 8.9 (8.4-10.2) mg/dL Adrenal panel 09/11/24 Range/Units 09:25 Sodium 138 (137-145) mmol/L Potassium 4.0 (3.4-5.0) mmol/L Chloride 106 (98-107) mmol/L Carbon Dioxide 22 (22-30) mmol/L BUN 7 D (7-17) mg/dL Creatinine 0.60 L (0.7-1.0) mg/dL Glucose 100 (65-110) mg/dL Calcium 8.9 (8.4-10.2) mg/dL Total Bilirubin 0.7 (0.2-1.3) mg/dL AST 131 H (14-36) U/L ALT 172 H (6-35) U/L Alkaline Phosphatase 44 (38-126) U/L Total Protein 8.0 (6.3-8.2) g/dL Albumin 4.6 (3.5-5.1) g/dL All other labs normal. Imaging Abdomen CT scan report/results: report reviewed and image reviewed Abdominal ultrasound report/results: report reviewed
[2024-09-11] MEDS: SODIUM CHLORIDE 0.9% IV 1,000 ML 75 ML IV CONT (13:03)
[2024-09-11] MEDS: PANTOPRAZOLE SODIUM IV 40 MG VIAL IV PUSH (13:03)
--- NOTE | 2024-09-11 13:04 | WPDHPUPDATE1 ---
History and Physical Update Update Date/Time: 09/11/24 13:04 History and Physical has been reviewed, including an updated exam of the patient. There are NO changes in the patient's condition. Risks, benefits, and alternatives have been discussed and questions answered. Patient agrees to proceed with procedure.
[2024-09-11] MEDS: LACTATED RINGERS 1,000 ML 30 ML IV CONT (14:11)
--- NOTE | 2024-09-11 14:15 | WPDANESEPPF ---
Anes - Initial Pre Proc Eval Procedure: Operation Date: 09/11/24 14:15 Proposed Procedures p Laparoscopic Cholecystectomy - Kisha Guerrero MD Date/Time: 09/11/24 14:15 Surgeon: Anna Fontenot MD Pre Op Diagnosis: cholelithiasis Patient Data Age: 29 Gender: F Height: 1.57 m Weight: 92.8 kg Last Vital Signs Temp 98.3 F 09/11/24 12:00 Pulse 88 09/11/24 12:00 Resp 14 09/11/24 12:00 BP 134/68 09/11/24 12:00 Pulse Ox 100 09/11/24 12:00 O2 Del Method Room Air 09/11/24 13:16 Allergies Allergy/AdvReac Type Severity Reaction Status Date / Time aspirin Allergy Unknown Nausea and Verified 09/11/24 09:03 Vomiting prednisone Allergy Rash Verified 09/11/24 09:03 Home Medications Medication Instructions Recorded Confirmed Type drospirenone (contraceptive) 4 mg 4 mg PO DAILY 11/26/23 09/11/24 History (28) tablet (Slynd) ondansetron 4 mg disintegrating 4 mg PO Q8H PRN nausea and 09/01/24 09/11/24 Rx tablet vomiting #14 tabs omeprazole 20 mg capsule,delayed 20 mg PO DAILY 14 days #14 caps 09/02/24 09/11/24 Rx release Laboratory Tests 09/11/24 09/11/24 09:25 09:32 WBC 9.0 K/mm3 (4.5-10.0) RBC 4.62 M/mm3 (4.2-5.4) Hgb 13.6 g/dL (12.0-15.0) Hct 40.9 % (37.0-47.0) MCV 88.5 fl (80-100) MCH 29.4 pg (26-34) MCHC 33.3 g/dl (32-36) RDW 13.8 % (11.5-14.5) Plt Count 351 k/mm3 (150-375) MPV 9.6 fl (7.4-10.4) Immature Gran % (Auto) 0.2 % (0-0.5) Neut % (Auto) 75.7 H % (45.5-73.1) Lymph % (Auto) 19.3 % (18.3-44.2) [place] % (Auto) 3.8 % (2.6-8.5) Eos % (Auto) 0.6 % (0-4.4) Baso % (Auto) 0.4 % (0.2-1.2) Lymph # (Auto) 1.74 K/mm3 (0.9-3.2) [place] # (Auto) 0.3 K/mm3 (0.1-0.6) Eos # (Auto) 0.1 K/mm3 (0-0.3) Baso # (Auto) 0.0 K/mm3 (0.0-0.1) Abs Immat Gran (auto) 0.02 K/mm3 (0.00-0.031) Absolute Neuts (auto) 6.8 H K/mm3 (1.3-6.7) Absolute Nucleated RBC 0.000 K/mm3 (0.0-0.012) Nucleated RBC % 0.0 % (0.0-0.2) Sodium 138 mmol/L (137-145) Potassium 4.0 mmol/L (3.4-5.0) Chloride 106 mmol/L (98-107) Carbon Dioxide 22 mmol/L (22-30) Anion Gap 10 mmol/L (4-12) BUN 7 D mg/dL (7-17) Creatinine 0.60 L mg/dL (0.7-1.0) Estim Creat Clear Calc 125 ml/min Estimated GFR > 60 (59 - ) Glucose 100 mg/dL (65-110) Calcium 8.9 mg/dL (8.4-10.2) Total Bilirubin 0.7 mg/dL (0.2-1.3) AST 131 H U/L (14-36) ALT 172 H U/L (6-35) Alkaline Phosphatase 44 U/L (38-126) Total Protein 8.0 g/dL (6.3-8.2) Albumin 4.6 g/dL (3.5-5.1) Lipase 312 H U/L (23-300) POC Urine HCG, Qual Negative (Negative) Patient hx anesthesia problems: none Family hx anesthesia problems: none Results Review: All pre-operative results and documents have been reviewed as part of the pre-operative evaluation. [facility] Past Medical History Medical History Allergies Gestational diabetes Gestational hypertension Headache History of smoking Marijuana abuse Obesity (BMI 35.0-39.9 without comorbidity) Surgical History Surgical History History of appendectomy History of tonsillectomy Family History Family History Grandparent Diabetes mellitus Depression Cancer Hypertension Daughter No problems noted. Father Depression Mother Depression Diverticulitis Crohn disease Social History Social History Smoking status: Former smoker Tobacco type: cigarettes Second hand tobacco smoke exposure: No Smoking end date: 11/22/18 Alcohol intake: never Substance use: never Substance use type: marijuana Do You Feel Safe in your Home?: Yes Lack of Transportation: No Lack of Food: Never True Current Housing: I Have Housing Concerned About Future Housing: No Difficulty Paying Gas/Electric Bills: No Difficulty Paying for Meds: No Currently Unemployed: No Education: High School Diploma/GED Difficulty w/ Childcare or Family Care: No Gender identity (if verbalized by the patient): Female Spiritual care concerns: No Anes - Eval Final PreProcedure Day of Procedure 09/11/24 14:15 Patient weight: obese Heart: regular rate and rhythm Lungs: clear to auscultation Airway: Mallampati scale class II Neurological: alert and oriented Last oral intake: >/= 8 hours ASA classification: II Emergent: no Anesthetic plan: proceed Anesthesia type and monitoring: general and standard monitoring Results Review: All pre-operative results and documents have been reviewed as part of the pre-operative evaluation. Pt is exsmoker, quit 2018. Informed Consent: The patient's anesthetic plan and its attendant risks and benefits were discussed with the patient/family/POA. Questions were solicited and answers provided to the satisfaction of the patient/family/POA.
[2024-09-11] MEDS: ceFAZolin 2 GM/D5W 50 ML 2 GM/50 ML BAG IVPB (14:39)
[2024-09-11] MEDS: BUPIVACAINE/EPINEPHRINE 0.5% 50 ML VIAL 20 ML INFILTRATE (14:55)
--- NOTE | 2024-09-11 15:23 | P.OP_ITS ---
Procedure Note - Detailed Date of Procedure 09/11/24 Pre-op Diagnosis cholecystitis, cholelithiasis Post-op Diagnosis Same Procedure Performed Laparoscopic cholecystectomy Surgeon Kisha Guerrero MD Anesthesia General Indications 29-year-old female presenting to the emergency department with severe right upper quadrant, epigastric abdominal pain. Workup, including imaging, significant for cholecystitis, cholelithiasis. Findings Cholecystitis with cholelithiasis Description of Procedure The patient was taken to the operating room placed in the supine position. After adequate induction of general anesthesia, the patient was prepped and draped in normal sterile fashion. A time-out was then performed to verify the patient's identity as well as the procedure being performed. I then made a 5 mm incision in the infraumbilical region. Through this, a Veress needle was placed into the peritoneal cavity and CO2 gas was then insufflated. After adequate pneumoperitoneum was achieved, the Veress needle was removed and a 5 mm optiview trocar was placed through this incision under direct visualization. I then placed the laparoscope through this trocar site and under direct visualization placed a further 12 mm subxiphoid port as well as 2 additional 5 mm ports in the right upper abdomen. The gallbladder was then identified and was noted to be moderately inflamed and distended. I was able to place a grasper at the dome of the gallbladder and this was retracted anterior and cephalad up over the liver. A 2nd retractor was then placed at the infundibulum and retracted laterally, this allowed visualization of the triangle of Calot. I then was able to visualize the cystic duct in its entirety from its proximal insertion into the gallbladder, to its distal junction with the common hepatic/common bile duct junction. At this point, I carefully skeletonized the proximal cystic duct with the [place] dissector. I then clipped and transected the proximal cystic duct. Next I visualized the cystic artery. Again the artery was skeletonized, clipped, and transected. I then used the Bovie cautery to take down the peritoneal attachments of the gallbladder off the liver bed. This was somewhat difficult given the amount of inflammation in the posterior space. Once the gallbladder specimen was completely detached, an endo-pouch was placed through the 12 mm port site. I then placed the gallbladder specimen into the Endo pouch and removed the endo-pouch from the 12 mm port site. The specimen will now be sent to pathology for further review. I then copiously irrigated the right upp er quadrant. Hemostasis was noted in the liver bed, the clips were noted to be in good position on both the cystic duct stump and the cystic artery stump. No other pathology was noted in the right upper quadrant. I then moved the laparoscope to the subxiphoid port. No iatrogenic injury or other pathology was noted in the lower abdomen. I then closed the 12 mm trocar site under direct visualization using the Cholo cone and 0 Vicryl suture. At this point, the abdomen was desufflated and all ports removed. All port sites were then closed with 4.O Monocryl subcuticular sutures. Dermabond was placed on each incision. The patient tolerated the procedure well, was extubated in the operating room postoperative and will be transferred to the recovery room in stable condition Estimated Blood Loss 10 Drains No Packing No Pathology Yes Complications No immediate complications Condition Stable Disposition PACU [facility] Billing Surgery - Charge Forward: Surgery Billing
[2024-09-11] MEDS: fentaNYL CITRATE INJ (*CRX) 100 MCG/2 ML VIAL 25 MCG IV PUSH ×8 (15:58→16:12)
[2024-09-11] MEDS: HYDROmorphone HCL INJ (*CRX) 1 MG/ML SYR 0.5 MG IV PUSH ×4 (16:22→16:40)
--- NOTE | 2024-09-11 16:58 | PC.NURSE ---
Returned from OR per at [id number]. Report received from Kath BLACKBURN.
[2024-09-11] MEDS: HYDROcodone/acetaminophen (*CRX) 5-325 MG TABLET 1 TAB PO (20:03)
[2024-09-12] MEDS: HYDROcodone/acetaminophen (*CRX) 5-325 MG TABLET 1 TAB PO ×3 (00:27→12:11)
[2024-09-12 03:12] VITALS: BP 110/63; PULSE 86; RESP 20; TEMP 36.3; O2SAT 100
[2024-09-12] MEDS: HYDROmorphone HCL INJ (*CRX) 1 MG/ML SYR IV PUSH ×2 (04:01→08:43)
[2024-09-12] MEDS: ONDANSETRON INJ 4 MG/2 ML VIAL IV PUSH (04:01)
[2024-09-12] MEDS: SODIUM CHLORIDE 0.9% IV 1,000 ML 75 ML IV CONT (04:01)
[2024-09-12 05:01] LABS: Basophils Percent Auto 0.2 % (0.2-1.2); Hematocrit 39.1 % (37.0-47.0); Hemoglobin 12.9 g/dL (12.0-15.0); Immature Granulocyte Absolute 0.05 K/mm3 (0.00-0.031); Immature Granulocyte Percent A 0.5 % (0-0.5); Lymphocytes Absolute Auto 1.64 K/mm3 (0.9-3.2); Lymphocytes Percent Auto 14.8 % (18.3-44.2); Mean Corpuscular Hemoglobin 29.5 pg (26-34); Mean Corpuscular Volume 89.5 fl (80-100); Mean Platelet Volume 9.6 fl (7.4-10.4); Monocytes Absolute Auto 0.4 K/mm3 (0.1-0.6); Monocytes Percent Auto 3.7 % (2.6-8.5); Neutrophils Percent Auto 80.8 % (45.5-73.1); Platelet Count Result 319 k/mm3 (150-375); Red Blood Count 4.37 M/mm3 (4.2-5.4); Red Cell Distribution Width 13.6 % (11.5-14.5); White Blood Count 11.1 K/mm3 (4.5-10.0)
[2024-09-12 05:12] LABS: Alanine Aminotransferase 116 U/L (6-35); Albumin Level 3.9 g/dL (3.5-5.1); Alkaline Phosphatase 40 U/L (38-126); Anion Gap 10 mmol/L (4-12); Aspartate Amino Transferase 54 U/L (14-36); Bilirubin,Total 0.6 mg/dL (0.2-1.3); Blood Urea Nitrogen 4 mg/dL (7-17); Calcium 8.6 mg/dL (8.4-10.2); Carbon Dioxide 24 mmol/L (22-30); Chloride 105 mmol/L (98-107); Estimated CRCL calculation 108 ml/min; Estimated Glomerular Filt Rate > 60; Glucose 107 mg/dL (65-110); Magnesium 1.9 mg/dL (1.6-2.3); Potassium 3.8 mmol/L (3.4-5.0); Sodium 139 mmol/L (137-145)
[2024-09-12 07:12] VITALS: BP 117/72; PULSE 93; RESP 18; TEMP 35.8; O2SAT 100
[2024-09-12] MEDS: PANTOPRAZOLE SODIUM IV 40 MG VIAL IV PUSH (08:28)
--- NOTE | 2024-09-12 10:09 | PM.PNGS ---
Progress Note: A&P Assessment and Plan (1) Cholecystitis with cholelithiasis: Code(s): K80.10 - Calculus of gallbladder with chronic cholecystitis without obstruction Status: Acute Assessment and Plan: will add Flexiril for pain control, encourage OOB, if pain better this afternoon she can go home and f/u in 2 wks Subjective Subjective Date/Time Seen: 09/12/24 10:09 Interval history: c/o incisional pain iban c movt, vinny diet, previous RUQ/epigastric abd pain largely resolved Review of Systems Review of Systems: All systems reviewed & are unremarkable except as noted in HPI and below Exam Const: General: cooperative, comfortable and no acute distress Resp: Auscultation: clear to auscultation bilaterally Cardio: Rate: regular rate Rhythm: regular rhythm GI: Inspection: normal to inspection, distended and incision GI Palp: Yes abdominal tenderness, Yes Soft to palpation, Yes Tenderness to palpation present (GI), No Guarding due to palpation present (GI) and No Rigid due to palpation Objective Data Vital Signs Vital Signs: Vital Signs - 24 hr 09/11/24 10:33 09/11/24 10:34 09/11/24 11:02 Temperature 37.2 C Pulse Rate 86 87 92 Respiratory Rate 18 18 20 Blood Pressure 111/69 111/69 119/66 Pulse Oximetry 100 100 98 Oxygen Delivery Oxygen Flow Rate 09/11/24 11:32 09/11/24 12:00 09/11/24 13:16 Temperature 36.8 C Pulse Rate 88 88 Respiratory Rate 20 14 Blood Pressure 106/47 L 134/68 Pulse Oximetry 99 100 Oxygen Delivery Room Air Oxygen Flow Rate 09/11/24 14:28 09/11/24 15:34 09/11/24 15:45 Temperature 36.3 C L 37.2 C Pulse Rate 81 87 104 H Respiratory Rate 16 14 14 Blood Pressure 118/66 102/56 L 114/58 L Pulse Oximetry 99 100 100 Oxygen Delivery Room Air Simple Face Mask Simple Face Mask Oxygen Flow Rate 8 8 09/11/24 16:00 09/11/24 16:15 09/11/24 16:30 Temperature Pulse Rate 92 106 H 97 Respiratory Rate 13 16 14 Blood Pressure 119/69 113/75 107/64 Pulse Oximetry 100 96 97 Oxygen Delivery Simple Face Mask Room Air Room Air Oxygen Flow Rate 8 09/11/24 16:45 09/11/24 17:00 09/11/24 17:34 Temperature 36.9 C Pulse Rate 98 91 96 Respiratory Rate 16 14 14 Blood Pressure 122/73 131/70 138/70 Pulse Oximetry 98 98 97 Oxygen Delivery Room Air Oxygen Flow Rate 09/11/24 18:12 09/11/24 19:12 09/11/24 20:00 Temperature 35.9 C L Pulse Rate 97 106 H Respiratory Rate 14 20 Blood Pressure 105/57 L 110/75 Pulse Oximetry 97 99 Oxygen Delivery Room Air Oxygen Flow Rate 09/11/24 23:12 09/12/24 03:12 09/12/24 07:12 Temperature 36.6 C 36.3 C L 35.8 C L Pulse Rate 101 H 86 93 Respiratory Rate 20 20 18 Blood Pressure 119/66 110/63 117/72 Pulse Oximetry 100 100 100 Oxygen Delivery Oxygen Flow Rate Intake/Output Intake/Output: Intake & Output 09/09/24 09/10/24 09/11/24 09/12/24 23:59 23:59 23:59 23:59 Intake Total 467.5 1218.7 Balance 467.5 1218.7 Meds/Results Medications: Active Medications Generic Name Dose Route Start Last Admin Trade Name Freq PRN Reason Stop Dose Admin Hydrocodone Bitart/Acetaminophen 1 tab 09/11/24 16:51 09/12/24 06:45 Hydrocodone/Acetaminophen (*Crx) 5-325 Mg Tablet PO 1 tab Q4H PRN Administration Pain Rated 4-6 Cyclobenzaprine HCl 10 mg 09/12/24 09:55 Cyclobenzaprine Hcl 10 Mg Tablet PO Q8H PRN Muscle Spasm Hydromorphone HCl 1 mg 09/11/24 10:44 09/12/24 08:43 Hydromorphone Hcl Inj (*Crx) 1 Mg/Ml Syr IV PUSH 1 mg Q4H PRN Administration Pain Rated 7-10 Sodium Chloride 1,000 mls @ 75 mls/hr 09/11/24 12:35 09/12/24 04:01 Normal Saline Iv IV CONT 75 mls/hr .[id number] JUVE Administration Ondansetron HCl 4 mg 09/11/24 10:44 09/12/24 04:01 Ondansetron Inj 4 Mg/2 Ml Vial IV PUSH 4 mg Q4H PRN Administration Nausea Pantoprazole Sodium 40 mg 09/12/24 09:00 09/12/24 08:28 Pantoprazole Sodium Iv 40 Mg Vial IV PUSH 40 mg QAM JUVE Administration Labs Labs: Laboratory Results - last 24 hr 09/12/24 04:40 WBC 11.1 H RBC 4.37 Hgb 12.9 Hct 39.1 MCV 89.5 MCH 29.5 MCHC 33.0 RDW 13.6 Plt Count 319 MPV 9.6 Immature Gran % (Auto) 0.5 Neut % (Auto) 80.8 H Lymph % (Auto) 14.8 L [place] % (Auto) 3.7 Eos % (Auto) 0.0 Baso % (Auto) 0.2 Lymph # (Auto) 1.64 [place] # (Auto) 0.4 Eos # (Auto) 0.0 Baso # (Auto) 0.0 Abs Immat Gran (auto) 0.05 H Absolute Neuts (auto) 9.0 H Absolute Nucleated RBC 0.000 Nucleated RBC % 0.0 Sodium 139 Potassium 3.8 Chloride 105 Carbon Dioxide 24 Anion Gap 10 BUN 4 L Creatinine 0.70 Estim Creat Clear Calc 108 Estimated GFR > 60 Glucose 107 Calcium 8.6 Magnesium 1.9 Total Bilirubin 0.6 AST 54 H ALT 116 H Alkaline Phosphatase 40 Total Protein 7.0 Albumin 3.9
[2024-09-12] MEDS: CYCLOBENZAPRINE HCL 10 MG TABLET PO ×2 (10:24→16:20)
[2024-09-12 11:12] VITALS: BP 109/66; PULSE 90; RESP 16; TEMP 36.1; O2SAT 100
--- NOTE | 2024-09-12 12:13 | P.PNIM_ITS ---
Progress Note: A&P Assessment and Plan (1) Abdominal pain: Code(s): R10.9 - Unspecified abdominal pain Status: Inactive Plan Patient is a 29-year-old female presents to the ER with right upper and epigastric pain intermittent since a month. She reports her abdominal pain started on Wednesday, on Wednesday she started vomiting regularly. Patient reports she came in to this ER yesterday, abdominal CT scan showed distended gallbladder with no definitive stones. Mild hepatomegaly. Prominent vessels around left ovary with prominent left ovarian vein suggestive of pelvic congestion syndrome., she was treated with pain medication.. She reports they ER doctor wanted to admit her but patient did not meet criteria for admission. Patient reports she went in had abdominal ultrasound performed this morning. Which s howed cholelithiasis otherwise normal limited ultrasound of the abdomen. No evidence of intra or extrahepatic biliary dilatation. She presents back to the ER for increased pain in her abdomen. Patient denies chest pain, shortness a breath, other signs of illness, or CVA tenderness. She is admitted for further treatment. Laboratory evaluation showed normal WBC at 9 hemoglobin of 13.6 hematocrit of 41 platelet of 351. LFTs are elevated with AST of 131 ALT of 172 with normal bilirubin and alkaline phosphatase. General surgery h consulted. Will continue IV analgesics IV antiemetics IV fluids. Patient underwent laparoscopic cholecystectomy 09/11/2024. Postoperative incisional pain adjusted pain medication today DVT prophylaxis SCDs Code status full code Subjective Date/time seen: 09/12/24 12:13 Interval history: Continues to have pain in right upper quadrant which was severe and makes her dizzy and sweaty some nausea but tolerated diet. Review of Systems Review of Systems: All systems reviewed & are unremarkable except as noted in HPI and below Exam Narrative: GENERAL: Well appearing, well-nourished, non-toxic, in no acute distress. HEAD: Normocephalic, atraumatic. NECK: Supple. No adenopathy, no masses. RESPIRATORY: Airway patent, respirations nonlabored. Clear to auscultation bila terally, no rales, rhonchi, wheezing. CARDIOVASCULAR: Regular rate and rhythm without murmurs, rubs, or gallops. Peripheral pulses 2+ and equal bilaterally. ABDOMINAL: Soft, tender in RUQ, nondistended, no hepatosplenomegaly. Normoactive BS. MUSCULOSKELETAL: Moves all extremities. Strength/ROM intact without gross deformities. SKIN: Warm, dry, normal color. No rashes. NEURO: A&O X3. Speech clear. Cranial nerves II-XII grossly intact. Steady gait. No ataxic movements. PSYCHIATRIC: Appropriate mood and affect. Normal interaction. Objective Data Vital Signs Vital Signs: Vital Signs - 24 hr 09/11/24 13:16 09/11/24 14:28 09/11/24 15:34 Temperature 97.4 F L 98.9 F Pulse Rate 81 87 Respiratory Rate 16 14 Blood Pressure 118/66 102/56 L Pulse Oximetry 99 100 Oxygen Delivery Room Air Room Air Simple Face Mask Oxygen Flow Rate 8 09/11/24 15:45 09/11/24 16:00 09/11/24 16:15 Temperature Pulse Rate 104 H 92 106 H Respiratory Rate 14 13 16 Blood Pressure 114/58 L 119/69 113/75 Pulse Oximetry 100 100 96 Oxygen Delivery Simple Face Mask Simple Face Mask Room Air Oxygen Flow Rate 8 8 09/11/24 16:30 09/11/24 16:45 09/11/24 17:00 Temperature 98.5 F Pulse Rate 97 98 91 Respiratory Rate 14 16 14 Blood Pressure 107/64 122/73 131/70 Pulse Oximetry 97 98 98 Oxygen Delivery Room Air Room Air Oxygen Flow Rate 09/11/24 17:34 09/11/24 18:12 09/11/24 19:12 Temperature 96.7 F L Pulse Rate 96 97 106 H Respiratory Rate 14 14 20 Blood Pressure 138/70 105/57 L 110/75 Pulse Oximetry 97 97 99 Oxygen Delivery Oxygen Flow Rate 09/11/24 20:00 09/11/24 23:12 09/12/24 03:12 Temperature 97.8 F 97.4 F L Pulse Rate 101 H 86 Respiratory Rate 20 20 Blood Pressure 119/66 110/63 Pulse Oximetry 100 100 Oxygen Delivery Room Air Oxygen Flow Rate 09/12/24 07:12 Temperature 96.5 F L Pulse Rate 93 Respiratory Rate 18 Blood Pressure 117/72 Pulse Oximetry 100 Oxygen Delivery Oxygen Flow Rate Intake/Output Intake/Output: Intake & Output 09/09/24 09/10/24 09/11/24 09/12/24 23:59 23:59 23:59 23:59 Intake Total 467.5 1218.7 Balance 467.5 1218.7 Meds/Results Medications: Active Medications Generic Name Dose Route Start Last Admin Trade Name Freq PRN Reason Stop Dose Admin Hydrocodone Bitart/Acetaminophen 1 tab 09/11/24 16:51 09/12/24 12:11 Hydrocodone/Acetaminophen (*Crx) 5-325 Mg Tablet PO 1 tab Q4H PRN Administration Pain Rated 4-6 Cyclobenzaprine HCl 10 mg 09/12/24 10:14 09/12/24 10:24 Cyclobenzaprine Hcl 10 Mg Tablet PO 10 mg Q6HR PRN Administration Muscle Spasm Hydromorphone HCl 1 mg 09/11/24 10:44 09/12/24 08:43 Hydromorphone Hcl Inj (*Crx) 1 Mg/Ml Syr IV PUSH 1 mg Q4H PRN Administration Pain Rated 7-10 Sodium Chloride 1,000 mls @ 75 mls/hr 09/11/24 12:35 09/12/24 04:01 Normal Saline Iv IV CONT 75 mls/hr .[id number] JUVE Administration Ondansetron HCl 4 mg 09/11/24 10:44 09/12/24 04:01 Ondansetron Inj 4 Mg/2 Ml Vial IV PUSH 4 mg Q4H PRN Administration Nausea Pantoprazole Sodium 40 mg 09/12/24 09:00 09/12/24 08:28 Pantoprazole Sodium Iv 40 Mg Vial IV PUSH 40 mg QAM JUVE Administration Labs Labs: Laboratory Results - last 24 hr 09/12/24 04:40 WBC 11.1 H RBC 4.37 Hgb 12.9 Hct 39.1 MCV 89.5 MCH 29.5 MCHC 33.0 RDW 13.6 Plt Count 319 MPV 9.6 Immature Gran % (Auto) 0.5 Neut % (Auto) 80.8 H Lymph % (Auto) 14.8 L [place] % (Auto) 3.7 Eos % (Auto) 0.0 Baso % (Auto) 0.2 Lymph # (Auto) 1.64 [place] # (Auto) 0.4 Eos # (Auto) 0.0 Baso # (Auto) 0.0 Abs Immat Gran (auto) 0.05 H Absolute Neuts (auto) 9.0 H Absolute Nucleated RBC 0.000 Nucleated RBC % 0.0 Sodium 139 Potassium 3.8 Chloride 105 Carbon Dioxide 24 Anion Gap 10 BUN 4 L Creatinine 0.70 Estim Creat Clear Calc 108 Estimated GFR > 60 Glucose 107 Calcium 8.6 Magnesium 1.9 Total Bilirubin 0.6 AST 54 H ALT 116 H Alkaline Phosphatase 40 Total Protein 7.0 Albumin 3.9
[2024-09-12 15:12] VITALS: BP 105/65; PULSE 96; RESP 18; TEMP 36.8; O2SAT 98
[2024-09-12] MEDS: HYDROcodone/acetaminophen (*CRX) 7.5-325 MG TABLET 1 TAB PO (16:20)
--- NOTE | 2024-09-12 17:12 | PM.DS ---
DS: Admitting Diagnosis Discharge Date 09/12/2024 Admitting Diagnosis abdominal pain DS: Discharge Diagnosis Discharge Diagnosis (1) Abdominal pain: Code(s): R10.9 - Unspecified abdominal pain Status: Inactive DS: Summary Hospital Course Hospital Course: Patient is a 29-year-old female presents to the ER with right upper and epigastric pain intermittent since a month. She reports her abdominal pain started on Wednesday, on Wednesday she started vomiting regularly. Patient reports she came in to this ER yesterday, abdominal CT scan showed distended gallbladder with no definitive stones. Mild hepatomegaly. Prominent vessels around left ovary with prominent left ovarian vein suggestive of pelvic congestion syndrome., she was treated with pain medication.. She reports they ER doctor wanted to admit her but patient did not meet criteria for admission. Patient reports she went in had abdominal ultrasound performed this morning. Which showed cholelithiasis otherwise normal limited ultrasound of the abdomen. No evidence of intra or extrahepatic biliary dilatation. She presents back to the ER for increased pain in her abdomen. Patient denies chest pain, shortness a breath, other signs of illness, or CVA tenderness. She is admitted for further treatment. Laboratory evaluation showed normal WBC at 9 hemoglobin of 13.6 hematocrit of 41 platelet of 351. LFTs are elevated with AST of 131 ALT of 172 with normal bilirubin and alkaline phosphatase. General surgery h consulted. Will continue IV analgesics IV antiemetics IV fluids. Patient underwent laparoscopic cholecystectomy 09/11/2024. Postoperative incisional pain adjusted pain medication. Tolerating diet. Follow-up with general surgery. DVT prophylaxis SCDs Code status full code Time Spent with Patient Time attestation: Total time spent providing and/or coordinating discharge services: 35 minutes Exam Narrative: GENERAL: Well appearing, well-nourished, non-toxic, in no acute distress. HEAD: Normocephalic, atraumatic. NECK: Supple. No adenopathy, no masses. RESPIRATORY: Airway patent, respirations nonlabored. Clear to auscultation bilaterally, no rales, rhonchi, wheezing. CARDIOVASCULAR: Regular rate and rhythm without murmurs, rubs, or gallops. Peripheral pulses 2+ and equal bilaterally. ABDOMINAL: Soft, incisional pain and tenderness right upper quadrant, nondistended, no hepatosplenomegaly. Normoactive BS. MUSCULOSKELETAL: Moves all extremities. Strength/ROM intact without gross deformities. SKIN: Warm, dry, normal color. No rashes. NEURO: A&O X3. Speech clear. Cranial nerves II-XII grossly intact. Steady gait. No ataxic movements. PSYCHIATRIC: Appropriate mood and affect. Normal interaction. DS: Data Data Completed and Pending Pending studies at discharge: Pending at discharge 09/11/24 15:14 Surgical [PTH] Routine Labs on day of discharge: Labs from last 24 hours 09/12/24 04:40 WBC 11.1 H RBC 4.37 Hgb 12.9 Hct 39.1 MCV 89.5 MCH 29.5 MCHC 33.0 RDW 13.6 Plt Count 319 MPV 9.6 Immature Gran % (Auto) 0.5 Neut % (Auto) 80.8 H Lymph % (Auto) 14.8 L [place] % (Auto) 3.7 Eos % (Auto) 0.0 Baso % (Auto) 0.2 Lymph # (Auto) 1.64 [place] # (Auto) 0.4 Eos # (Auto) 0.0 Baso # (Auto) 0.0 Abs Immat Gran (auto) 0.05 H Absolute Neuts (auto) 9.0 H Absolute Nucleated RBC 0.000 Nucleated RBC % 0.0 Sodium 139 Potassium 3.8 Chloride 105 Carbon Dioxide 24 Anion Gap 10 BUN 4 L Creatinine 0.70 Estim Creat Clear Calc 108 Estimated GFR > 60 Glucose 107 Calcium 8.6 Magnesium 1.9 Total Bilirubin 0.6 AST 54 H ALT 116 H Alkaline Phosphatase 40 Total Protein 7.0 Albumin 3.9 Procedures/Treatments: Procedure Note - Detailed Date of Procedure 09/11/24 Pre-op Diagnosis cholecystitis, cholelithiasis Post-op Diagnosis Same Procedure Performed Laparoscopic cholecystectomy Surgeon Kisha Guerrero MD Anesthesia General Indications 29-year-old female presenting to the emergency department with severe right upper quadrant, epigastric abdominal pain. Workup, including imaging, significant for cholecystitis, cholelithiasis. Findings Cholecystitis with cholelithiasis Description of Procedure The patient was taken to the operating room placed in the supine position. After adequate induction of general anesthesia, the patient was prepped and draped in normal sterile fashion. A time-out was then performed to verify the patient's identity as well as the procedure being performed. I then made a 5 mm incision in the infraumbilical region. Through this, a Veress needle was placed into the peritoneal cavity and CO2 gas was then insufflated. After adequate pneumoperitoneum was achieved, the Veress needle was removed and a 5 mm optiview trocar was placed through this incision under direct visualization. I then placed the laparoscope through this trocar site and under direct visualization placed a further 12 mm subxiphoid port as well as 2 additional 5 mm ports in the right upper abdomen. The gallbladder was then identified and was noted to be moderately inflamed and distended. I was able to place a grasper at the dome of the gallbladder and this was retracted anterior and cephalad up over the liver. A 2nd retractor was then placed at the infundibulum and retracted laterally, this allowed visualization of the triangle of Calot. I then was able to visualize the cystic duct in its entirety from its proximal insertion into the gallbladder, to its distal junction with the common hepatic/common bile duct junction. At this point, I carefully skeletonized the proximal cystic duct with the [place] dissector. I then clipped and transected the proximal cystic duct. Next I visualized the cystic artery. Again the artery was skeletonized, clipped, and transected. I then used the Bovie cautery to take down the peritoneal attachments of the gallbladder off the liver bed. This was somewhat difficult given the amount of inflammation in the posterior space. Once the gallbladder specimen was completely detached, an endo-pouch was placed through the 12 mm port site. I then placed the gallbladder specimen into the Endo pouch and removed the endo-pouch from the 12 mm port site. The specimen will now be sent to pathology for further review. I then copiously irrigated the right upper quadrant. Hemostasis was noted in the liver bed, the clips were noted to be in good position on both the cystic duct stump and the cystic artery stump. No other pathology was noted in the right upper quadrant. I then moved the laparoscope to the subxiphoid port. No iatrogenic injury or other pathology was noted in the lower abdomen. I then closed the 12 mm trocar site under direct visualization using the Cholo cone and 0 Vicryl suture. At this point, the abdomen was desufflated and all ports removed. All port sites were then closed with 4.O Monocryl subcuticular sutures. Dermabond was placed on each incision. The patient tolerated the procedure well, was extubated in the operating room postoperative and will be transferred to the recovery room in stable condition Estimated Blood Loss 10 Drains No Packing No Pathology Yes Complications No immediate complications Condition Stable Disposition PACU [facility] Billing Surgery - Charge Forward: Surgery Billing Discharge Plan Discharge Attending physician on discharge: Nhan Castillo Consulting providers: Kisha Guerrero Discharging Clinician: Nhan Castillo Anticipated Discharge Date/Time: 09/12/24 17:11 Patient Disposition: Home, Self-Care Activity: as tolerated Diet: low fat Patient Instructions: Antibiotic Form Stand Alone Forms: General Discharge Information Follow-up/Referrals: Kisha Guerrero MD [Physician] - 2 Weeks Clarisse Luong, SENIOR LABORATORY TECHNICIAN [Primary Care Provider] - 1 Week Discharge Medications: New hydrocodone-acetaminophen 5-325 mg tablet 1 tablet PO Q6H PRN (Reason: pain) Qty: 20 0RF Continued Slynd 4 mg (28) tablet 4 mg PO DAILY ondansetron 4 mg tablet,disintegrating 4 mg PO Q8H PRN (Reason: nausea and vomiting) Qty: 14 0RF omeprazole 20 mg capsule,delayed release(DR/EC) 20 mg PO DAILY 14 Days Qty: 14 0RF Date of admission: 09/11/24 11:27 Primary Care Provider: Clarisse Luong Admitting Provider: Anna Fontenot Attending physician on admission: Anna Fontenot Condition: Stable
--- NOTE | 2024-09-12 17:50 | WPDANESPN ---
Anes - Prog Note Post-Op Date/Time: 09/12/24 17:50 Cardiovascular status: normal Respiratory status: normal Airway patency: baseline Mental status: baseline Post-Op hydration status: normal Vital Signs: Last Vital Signs Temp 36.8 C 09/12/24 15:12 Pulse 96 09/12/24 15:12 Resp 18 09/12/24 15:12 BP 105/65 09/12/24 15:12 Pulse Ox 98 09/12/24 15:12 O2 Del Method Room Air 09/12/24 08:00 O2 Flow Rate 8 09/11/24 16:00 Pain Score (VAS): 0 I/O: Intake & Output 09/12/24 09/12/24 09/12/24 07:59 15:59 23:59 Intake Total 1098.7 360 Balance 1098.7 360 Laboratory Tests 09/12/24 04:40 09/12/24 04:40 09/12/24 04:40 WBC 11.1 H RBC 4.37 Hgb 12.9 Hct 39.1 MCV 89.5 MCH 29.5 MCHC 33.0 RDW 13.6 Plt Count 319 MPV 9.6 Immature Gran % (Auto) 0.5 Neut % (Auto) 80.8 H Lymph % (Auto) 14.8 L [place] % (Auto) 3.7 Eos % (Auto) 0.0 Baso % (Auto) 0.2 Lymph # (Auto) 1.64 [place] # (Auto) 0.4 Eos # (Auto) 0.0 Baso # (Auto) 0.0 Abs Immat Gran (auto) 0.05 H Absolute Neuts (auto) 9.0 H Absolute Nucleated RBC 0.000 Nucleated RBC % 0.0 Sodium 139 Potassium 3.8 Chloride 105 Carbon Dioxide 24 Anion Gap 10 BUN 4 L Creatinine 0.70 Estim Creat Clear Calc 108 Estimated GFR > 60 Glucose 107 Calcium 8.6 Magnesium 1.9 Total Bilirubin 0.6 AST 54 H ALT 116 H Alkaline Phosphatase 40 Total Protein 7.0 Albumin 3.9 Post-procedural complaints: none Patient Feedback: Patient satisfied with anesthetic care.
== END 2024-09-12 17:50 | disposition home or self-care (01) ==
LOC: ANHED 09:35 → ANH2MED 12:20
PROVIDERS: Surgery; Admitting Provider Hospitalist; Emergency Provider Registered Nurse; PCP Nurse Practitioner; Visit Provider Internal Medicine
PROC: 0FT44ZZ Resection of Gallbladder, Percutaneous Endoscopic Approach (ICD-10-PCS; CPT 47562; principal; 2024-09-11 14:15)
DX: K80.20 Calculus of gallbladder without cholecystitis without obstruction (principal); E66.9 Obesity, unspecified; Z68.37 Body mass index [BMI] 37.0-37.9, adult; Z87.891 Personal history of nicotine dependence; Z79.899 Other long term (current) drug therapy; Z79.3 Long term (current) use of hormonal contraceptives; G89.18 Other acute postprocedural pain
CPT/HCPCS: 47562; 36415; 80053; 81025; 83690; 83735; 85025; 88304; 96374; 96375; 99285; A9270; G0378; J0690; J1100; J1171; J2003; J2250; J2405; J2470; J2704; J3010; J7030; J7120

== ENCOUNTER 2024-12-08 13:00 | Outpatient (RCR) | payer OTHER, SELFPAY ==
--- NOTE | 2024-11-17 11:41 | OPREHPOC ---
Outpatient Therapy Plan of Care This is a Multidisciplinary Plan of Care that may contain components documented by all disciplines (PT, OT, and ST.) PT Problem 1 PT Problem #1 Knowledge Deficit PT Goal 1 Goal / Goal Update 1. Patient will perform independent HEP 2. Patient will verbalize urge suppression strategies Target Visit 3 PT Problem 2 PT Problem #2 Pain PT Goal 1 Goal / Goal Update 1. Pain with pelvic exam no higher than 3/10 Target Visit 6 PT Problem 3 PT Problem #3 Impaired Strength PT Goal 1 Goal / Goal Update 1. Pelvic floor strength 3/5 to reduce incontinence and symptoms of prolapse 2. Pelvic floor endurance to 10 seconds to reduce incontinence and symptoms of prolapse Target Visit 6 PT Problem 4 PT Problem #4 Impaired Functional ADLs PT Goal 1 Goal / Goal Update 1. Patient will void no more than 10 times in a 24 hour period 2. Patient will report no urinary incontinence for at least 2 weeks 3. Patient will be able to tolerate use of tampon without pain for at least 4 hours Target Visit 6
--- NOTE | 2024-11-17 11:42 | PTOPEVAL1 ---
Assessment and note entered by Maggie Fabian DPT Evaluation Information Assessment Status Evaluation Diagnosis n81.10 ICD-10 Condition Codes (PT) Weakness R53.1,Pelvic and perineal pain R10.2, Unspecified urinary incontinence R32 Subjective Information Pt delivered a baby in July 2023 and has been noticing incontinence and prolapse issues since then. States she feels a lot of pressure and that her bladder will explode . Feels like something is going to fall out and highest pain 5-6/10 and lowest 0/10. Voids 15-20 times a day and 1-2 times at night, incontinence multiple times a day with coughing, sneezing, hearing water. Can hold urge to void 15 minutes at the most and will get pain if she holds too long and will get pain with voiding as well. Uses at least 2 pads a day. BM all day every day and states she is being tested for Chron's and had gall bladder removed in September 14. Typically no pain with BM and no fecal incontinence. Pain with intercourse and unable to use tampons at all. Pt has had 3 vaginal deliveries, small tear with her second and shoulder dystocia, vacuum use and 47 hour labor with her third. No other MANAGER VOICE history but does state she feels constant cramping, currently getting evaluated for possible endometriosis. Patient goal: get rid of discomfort with going to the bathroom, decrease pain, decrease incontinence Returns to Dr. Chase for ultrasound on December 01. Reported Pain Level Pain Score 0: Self Report Assessment PT Clinical Summary The patient is presenting to skilled therapy with a diagnosis of cystocele and reports pelvic pain, urinary urgency, and urinary incontinence. She presents with significantly decreased pelvic floor strength and endurance with inability to appropriately contract muscles this visit, as well as decreased hip and abdominal strength. These impairments are contributing to her pain, urgency, and incontinence. She will highly benefit from therapy to address her impairments in order to reduce pain and urinary symptoms in order to function without limitation. Plan of Care Interventions Electrical Stimulation,Hot Pack/Cold Pack,Manual Therapy,Neuro Re-education,Patient/Caregiver Education,Therapeutic Activities,Therapeutic Exercise PT Services Indicated Yes Treatment Frequency and 1 time a week for 6 visits Duration These treatments will address the objective and functional deficits as defined above. The patient will be advanced safely and appropriately in order for the patient to progress towards his/her prior level of function. Additional exercises will be introduced and as well as a comprehensive home exercise program upon discharge, if needed, ?to ensure carryover of functional gains achieved in the clinic. This treatment plan has been reviewed and agreement upon by the patient.
--- NOTE | 2025-01-26 11:50 | PTOPDC ---
Assessment and note entered by Maggie Fabian DPT Evaluation Information Assessment Status Discharge - Pt Not Present Diagnosis n81.10 ICD-10 Condition Codes (PT) Weakness R53.1,Pelvic and perineal pain R10.2, Unspecified urinary incontinence R32 Subjective Information - Assessment PT Clinical Summary Patient's last appointment was 12/08/24- her case will be discharged this date. Plan of Care PT Services Indicated No
== END 2025-01-26 12:57 | disposition home or self-care (01) ==
LOC: ANHPT 13:00
PROVIDERS: PCP Nurse Practitioner; Visit Provider Obstetrics & Gynecology
DX: N81.10 Cystocele, unspecified (principal)
CPT/HCPCS: 97112; 97162; 97530

== ENCOUNTER 2025-06-06 19:45 | Observation (INO) | payer OTHER, SELFPAY ==
--- NOTE | ~2025-06-06 | US_ITS ---
EXAMINATION: US OB <= 14 weeks fetus DATE: 06/06/2025 22:23 INDICATION: , vaginal bleeding TECHNIQUE: Multiple transabdominal sonographic images of the pelvis were obtained. COMPARISON: None. FINDINGS: Uterus: 9.2 x 4.6 x 5.9 cm. Complex, thickened endometrium with no color Doppler flow, measuring 30 m m. No discernible gestational sac. Right Ovary: 5.7 x 2.8 x 2.5 cm. Vascular flow is present. 1.8 cm functional cyst versus corpus lutea l cyst. Left Ovary: 3.4 x 1.8 x 2.5 cm. Vascular flow is present. There is no free fluid in the pelvis. IMPRESSION: of unknown location. Complex, thickened endometrium, may represent hemorrhage and/or retain ed products. Recommend sonographic and beta hCG follow-up. Reviewed, dictated and finalized at location K. IMPRESSION: of unknown location. Complex, thickened endometrium, may represent he morrhage and/or retained products. Recommend sonographic and beta hCG follow-up .
[2025-06-06 19:46] VITALS: BP 139/77; PULSE 96; RESP 18; TEMP 36.6; O2SAT 99
--- OUTSIDE RECORDS SUMMARY | 2025-06-06 19:48 | XMS_ITS | Data Portability ---
Author Organization [facility] Address [address] [place] [address] [place] [address] Care Team Providers Care Automatic Vulcanizing Lead Operator Name Role Phone ZHOU SWAIN Primary Care Provider Assessment Encounter Date Assessment Date Assessment LastModified by Organization Details LastModified Time 02/13/2025 02/13/2025 Annual gynecological exam performed. Patient will come back in a year unless there are new symptoms. [email or web address] Not available 02/13/2025 16:31:09 Plan of Treatment Reminders Order Date Submit Date Provider Last Modified By Organization Details Last Modified Time Details Appointments None recorded. Lab pap, IG + reflex HPV if ASC-U - if positive HPV run subtyping 16,18/45 2024 025 [facility] (Lab), [address], [place], [address], 11:38:20 Referral None recorded. Procedures None recorded. Surgeries None recorded. Imaging US, obstetric, transvagina l 2024 025 [email or web address] [place], [address], [place], [address], 21:58:37 US, transvagina l 2024 025 [email or web address] [place], [address], [place], [address], 17:16:50 Medication Orders elagolix 200 mg tablet 2024 025 [id number], [address], [place], [id number], 12:10:14 Addyi 100 mg tablet 2024 025 [facility] #[id number], [address], [place], [id number], 16:32:47 Patient TargetsNo targets recorded. Patient InstructionsNo instructions recorded. Reason for Referral None Reported. Results Created Date Observation Date Name Description Value Unit Range Abnormal Flag Note LastModifiedBy Organization Detail LastModifiedTime 02/14/2002/13/2025 IMAGE GUIDE D PAP, REFLE X HPV IF ASCUS ONLY image guided Pap, reflex HPV ASCUS only SEE RESULT S BELOW CASE REPOR T: Cytol ogy Gynec ologi bro Repor t Case: [id number] Autho salome damico Provi mustapha: Daisy Renner, JOSE Colle cted: 02/13 1648 Order ing Locat ion: [place] Path[facility] Recei arnold: 02/14 1114 First Scree n: Martha Roca , [place] Rescr een: Bela León , [place] Speci men: Scree queenie Pap - Image d, Cervi x STATE MENT OF ADEQU ACY: Satis facto ry for evalu ation Trans forma tion zone compo nent absen t The absen ce of an endoc ervic al compo nent was confi rmed by an addit ional scree ner. ----- ----- ----- ----- ----- ----- ----- ----- ----- ----- ----- ----- ----- ----- ----- ----- ----- ---- FINAL DIAGN OSIS: Negat francisco for Intra epith elipeyton cook or Kev hernandez (NIL) . Elect macieldung brand lawrence d by Bela León , CT on 2024 at 1034 CDT ----- ----- ----- ----- ----- ----- ----- ----- ----- ----- ----- ----- ----- ----- ----- ----- ----- ---- COMME NT: This speci men was revie wed by a Cytot echno logis t and/o r Patho logis t (as indic ated in this repor t) after evalu ation using the Thinp rep Imagi ng Syste m. CLINI BRO INFOR MATIO N: Menst rual Statu s: LMP (if appli cable ): Clini bro Histo ry/Pr eviou s Pap: Type of Neopl omid (if appli cable ): Signi fican t Clini bro Findi ngs: Other Histo ry: Hormo gigi (if appli cable ): PAP EDUCA EVA L NOTE: The Pap Test is a scree queenie test with an inher ent false negat francisco rate. Liqui d-bas ed sampl ing may decre ase, but will not elimi kim, false negat francisco resul ts. A negat francsico resul t does not precl ude the prese nce and/o r devel opmen t of disea se, since the prese nce of abnor mal cells in the sampl e depen ds on the locat ion of the lesio n and sampl ing techn ique. Aisha nued regul ar scree queenie is the best metho d of cance r preve ntion . If repor car cytol ogic findi ng do not corre late with physi bro and/o r histo rical findi ngs, furth er inves tigat ion is recom olivia d, as clini eva nielson nted. Not Available [facility] (Lab) [address], [place], [address], 02/19/2025 11:38:20 05/02/20 25 05/02/2025 BHCG, QUANT ITATI VE B-HCG 501.0 mIU/m L 0.0-4. 9 high This assay was perfo rmed using [employer] n reage nts and test kits. Value s obtai carmine with other assay metho ds or kits canno t be used inter [facility] . Refer ence Range s: Non-p regna nt, preme nopau alycia women : 0.0-4 .9 mIU/m L Postm enopa usal women : 0.0-7 .0 mIU/m L Hannah l Pregn maryjane: Gesta eva l Age bHCG Conc. - mIU/m L 3 Weeks 5.8 - 71.7 4 Weeks 9.5 - 750 5 Weeks 217-7 138 6 Weeks 158 - 31,79 5 7 Weeks 3,697 - 162,5 63 8 Weeks 32,06 5 - 149,5 71 9 Weeks 63,80 3 - 151,4 10 10 Weeks 46,50 9 - 186,9 77 12 Weeks 27,83 2 - 210,6 12 14 Weeks 13,95 0 - 62,53 0 15 Weeks 12,03 9 - 70,97 1 16 Weeks 9,040 - 56,45 1 17 Weeks 8,175 - 55,86 8 18 Weeks 8,099 - 58,17 6 Not Available [facility] (Lab) [address], [place], [address], 05/03/2025 02:58:41 05/04/20 25 05/04/2025 BHCG, QUANT ITATI VE B-HCG 774.0 mIU/m L 0.0-4. 9 high This assay was perfo rmed using [employer] reage nts and test kits. Value s obtai carmine with other assay metho ds or kits canno t be used inter [facility] . Refer ence Range s: Non-p regna nt, preme nopau alycia women : 0.0-4 .9 mIU/m L Postm enopa usal women : 0.0-7 .0 mIU/m L Hannah l Pregn maryjane: Gesta eva l Age bHCG Conc. - mIU/m L 3 Weeks 5.8 - 71.7 4 Weeks 9.5 - 750 5 Weeks 217-7 138 6 Weeks 158 - 31,79 5 7 Weeks 3,697 - 162,5 63 8 Weeks 32,06 5 - 149,5 71 9 Weeks 63,80 3 - 151,4 10 10 Weeks 46,50 9 - 186,9 77 12 Weeks 27,83 2 - 210,6 12 14 Weeks 13,95 0 - 62,53 0 15 Weeks 12,03 9 - 70,97 1 16 Weeks 9,040 - 56,45 1 17 Weeks 8,175 - 55,86 8 18 Weeks 8,099 - 58,17 6 Not Available [facility] (Lab) [address], [place], [address], 05/05/2025 05:54:59 06/01/20 25 06/01/2025 BHCG, QUANT ITATI VE B-HCG 43856. 0 mIU/m L 0.0-4. 9 high This assay was perfo rmed using [employer] reage nts and test kits. Value s obtai carmine with other assay metho ds or kits canno t be used inter [facility] . Refer ence Range s: Non-p regna nt, preme nopau alycia women : 0.0-4 .9 mIU/m L Postm enopa usal women : 0.0-7 .0 mIU/m L Hannah l Pregn maryjane: Gesta eva l Age bHCG Conc. - mIU/m L 3 Weeks 5.8 - 71.7 4 Weeks 9.5 - 750 5 Weeks 217-7 138 6 Weeks 158 - 31,79 5 7 Weeks 3,697 - 162,5 63 8 Weeks 32,06 5 - 149,5 71 9 Weeks 63,80 3 - 151,4 10 10 Weeks 46,50 9 - 186,9 77 12 Weeks 27,83 2 - 210,6 12 14 Weeks 13,95 0 - 62,53 0 15 Weeks 12,03 9 - 70,97 1 16 Weeks 9,040 - 56,45 1 17 Weeks 8,175 - 55,86 8 18 Weeks 8,099 - 58,17 6 Not Available [facility] (Lab) [address], [place], [address], 06/02/2025 05:58:53 12/01/19 25 12/01/2024 US, trans vagin al No observ ation record ed. [facility] [address], [place], [address], 12/01/2024 16:26:56 12/01/19 25 12/01/2024 US, trans vagin al No observ ation record ed. [email or web address], [place], [address], 12/07/2024 14:02:41 06/01/2006/01/2025 US, obste tric, trans vagin al No observ ation record ed. [facility] [address], [place], [address], 06/01/2025 13:30:45 06/01/2006/01/2025 US, obste tric, follo w-up No observ ation record ed. [email or web address], [place], [address], 06/04/2025 12:09:55 Result Notes None recorded. Problems Name Problem SNOMED Code Status Onset Date Resolution Date Notes Provider Name and Address Organization Details Recorded Time Infectio n screenin g Completed 201609/23/2021 Encounte r for screenin g for oth infec/pa rastc diseases ;Recorde d Elsewher e: No [facility] S ource: EHR Statuary Painter doris: N Practi ce ID: 0001 Roel lable Time: 11:00:00 AM Emma conrad [facility] 1 10:29:58 Amenorrh ea [id number] Completed 201409/23/2021 AMENORRH EA;Pract ice ID: 0001 Emma conrad [facility] 10:28:02 Speciali angel medical examinat ion Completed 201409/23/2021 Routine gynecolo gical examinat ion;Prac dante ID: 0001 [facility] 10:31:25 Pregnanc y test positive [id number] Completed 201409/23/2021 Positive Pregnanc y Test;Pra ctice ID: 0001 Emma Cordova [facility] 10:30:38 Uterine size for dates discrepa ncy [id number] Completed 201409/23/2021 UTERINE SIZE MEG-ANTE PAR;Prac dante ID: 0001 Emma Cordova [facility] 10:31:47 Mild hypereme sis-not delivere d [id number] Completed 201409/23/2021 Hypereme sis gravidar um, antepart um Mild;Pra ctice ID: 0001 Emma Cordova [facility] 10:30:08 Nausea and vomiting [id number] Completed 201409/23/2021 Nausea with vomiting ;Practic e ID: 0001 Emma Cordova [facility] 10:30:09 Syncope and collapse [id number] Completed 201409/23/2021 Syncope and collapse ;Practic e ID: 0001 Emma Cordova [facility], [facility] 10:31:31 Antenata l screenin g Completed 201409/23/2021 ANTENATA L SCREENIN G NEC;Prac dante ID: 0001 Emma Cordova [facility] 10:28:04 Primigra parisa [id number] Completed 201409/23/2021 Supervis ion of normal first pregnanc y;Practi ce ID: 0001 Emma Cordova null, [facility] 10:30:56 anatomy study Completed 201409/23/2021 [facility] SURVEY;P ractice ID: 0001 Emma conrad [facility] 10:29:10 Complica tion of pregnanc y, childbir th and/or puerperi um [id number] Completed 201409/23/2021 OTH CURR COND-ANT EPARTUM; Practice ID: 0001 Emma conrad [facility] 10:28:17 Pregnanc y, childbir th and puerperi um finding Completed 201409/23/2021 Encntr for suprvsn of normal first preg, third trimeste r;Practi ce ID: 0001 Emmapat Cordova [facility] 10:30:41 Urinary tract infectio us disease [id number] Completed 201409/23/2021 Urinary tract infectio n, site not specifie d;Practi ce ID: 0001 Emma Cordova [facility] 10:31:42 Lochia finding Completed 201509/23/2021 Encounte r for routine postpart um follow-u p;Record ed Elsewher e: No Locat ion: [facility] S ource: EHR Statuary Painter doris: N Practi ce ID: 0001 Roel lable Time: 01:00:00 PM Emma Cordova [place] [facility] 10:30:03 Gestatio n period, 38 weeks [id number] Completed 201909/23/2021 38 weeks gestatio n of pregnanc y;Record ed Elsewher e: No Locat ion: [facility] S ource: EHR Statuary Painter doris: N Practi ce ID: 0001 Roel lable Time: 10:30:00 AM Emma Cordova null, [facility] 1 10:29:41 Gestatio n period, 32 weeks [id number] Completed 201909/23/2021 32 weeks gestatio n of pregnanc y;Record ed Elsewher e: No Locat ion: [facility] S ource: EHR Statuary Painter doris: N Practi ce ID: 0001 Roel lable Time: 11:00:00 AM Emma Cordova [place] [facility] 1 10:29:30 Cyst of ovary Completed 201709/23/2021 Unspecif ied ovarian cyst, unspecif ied side;Rec orded Elsewher e: No Locat ion: [facility] var[facility] S ource: EHR Statuary Painter doris: N Practi ce ID: 0001 Roel lable Time: 11:00:00 AM Emma conrad [facility] 1 10:28:44 Uses combined oral contrace ption [id number] Completed 201609/23/2021 Encounte r for initial prescrip tion of contrace ptive pills;Re corded Elsewher e: No Locat ion: [facility] var[facility] S ource: EHR Statuary Painter doris: N Jairti ce ID: 0001 Roel lable Time: 08:30:00 AM Emma conrad [facility] 1 10:28:15 Noninfec tious enteriti s of intestin e [id number] Completed 201409/23/2021 Gastroen teritis; Recorded Elsewher e: No [facility] S ource: EHR Statuary Painter doris: N Practi ce ID: 0001 Roel lable Time: 02:30:00 PM Emma Cordova [place] [facility] 1 10:30:00 Syphilis test finding [id number] Completed 201709/23/2021 Encntr screen for infectio ns w sexl mode of transmis s;Record ed Elsewher e: No Locat ion: [facility] S ource: EHR Statuary Painter doris: N Practi ce ID: 0001 Roel lable Time: 11:00:00 AM Emma conrad [facility] 10:31:34 Gestatio nal diabetes mellitus [id number] Completed 201909/23/2021 Gestatio nal diabetes in pregnanc y, insulin controll ed;Recor ded Elsewher e: No Locat ion: [facility] S ource: EHR Statuary Painter doris: N Practi ce ID: 0001 Roel lable Time: 10:30:00 AM Emma conrad [facility] 10:29:52 Normal pregnanc y in multigra parisa [id number] 18306 Completed 201809/23/2021 Encounte r for suprvsn of normal pregnanc y, second trimeste r;Record ed Elsewher e: No Locat ion: [facility] N Practi ce ID: 0001 Roel lable Time: 05:00:00 PM Emma conrad [facility] 10:30:[address] Concept Completed 201509/23/2021 Encounte r for surveill ance of other contrace ptives;R ecorded Elsewher e: No [facility]: EHR Statuary Painter doris: N Practi ce ID: 0001 Roel lable Time: 01:00:00 PM Emma conrad [facility] 10:31:20 Gestatio n period, 37 weeks [id number] Completed 201909/23/2021 37 weeks gestatio n of pregnanc y;Record ed Elsewher e: No [facility] S ource: EHR Statuary Painter doris: N Practi ce ID: 0001 Roel lable Time: 10:30:00 AM Emma conrad [facility] 1 10:29:40 Pregnanc y detectio n examinat ion Completed 201709/23/2021 Encounte r for pregnanc y test, result positive ;Recorde d Elsewher e: No Locat ion: [facility] S ource: EHR Statuary Painter doris: N Practi ce ID: 0001 Roel lable Time: 02:15:00 PM Emma conrad, [facility] 1 10:30:18 Finding of pattern of menstrua l cycle [id number] Completed 201709/23/2021 Excessiv e and frequent menstrua tion with irregula r cycle;Re corded Elsewher e: No [facility] S ource: EHR Statuary Painter doris: N Jairti ce ID: 0001 Roel lable Time: 01:00:00 PM Emma conrad, [facility] 10:29:16 Blood leukocyt e number above referenc e range [id number] Completed 201709/23/2021 Elevated white blood cell count, unspecif ied;Romulo rded Elsewher e: No Locat ion: [facility] S ource: EHR Statuary Painter doris: N Practi ce ID: 0001 Roel lable Time: 11:45:00 AM Emma conrad [facility] 1 10:29:54 Gestatio n period, 30 weeks [id number] Completed 201909/23/2021 30 weeks gestatio n of pregnanc y;Record ed Elsewher e: No [facility] S ource: EHR Statuary Painter doris: N Practi ce ID: 0001 Roel lable Time: 10:45:00 AM Emma conrad [facility] 1 10:29:29 Eruption [id number] Completed 201409/23/2021 Rash;Rec orded Elsewher e: No Locat ion: [facility] S ource: [facility] Statuary Painter doris: N Practi ce ID: 0001 Roel lable Time: 03:30:00 PM Emma conrad, [facility] 10:28:58 Gestatio n period, 36 weeks [id number] Completed 201909/23/2021 36 weeks gestatio n of pregnanc y;Practi ce ID: 0001 Emma conrad, [facility] 10:29:38 Pregnanc y-induce d hyperten bo Completed 201909/23/2021 Gestatio nal htn w/o signific ant proteinu anais, third trimeste r;Practi ce ID: 0001 Emma conrad, [facility] 10:30:49 False labor at or after 37 complete d weeks of gestatio n [id number] Completed 201909/23/2021 False labor at or after 37 complete d weeks of gestatio n;Practi ce ID: 0001 Emma conrad, [facility] 10:29:06 Term pregnanc y delivere d [id number] Completed 201909/23/2021 Encounte r for full-ter m uncompli cated delivery ;Practic e ID: 0001 Emma conrad, [facility] 10:31:36 Single live from singleto n pregnanc y [id number] Completed 201909/23/2021 Single live ;Pr actice ID: 0001 Emma conrad, [facility] 10:31:03 Gestatio n period, 39 weeks [id number] Completed 201909/23/2021 39 weeks gestatio n of pregnanc y;Practi ce ID: 0001 Emma conrad, [facility] 10:29:[address] Concept Completed 201709/23/2021 Encntr for geography faculty member exam (general ) (routine ) w/o abn findings ;Recorde d Elsewher e: No Locat ion: [facility] S ource: EHR Statuary Painter doris: Marjorie Berger ce ID: 0001 Roel lable Time: 11:00:00 AM Emma conrad, [facility] 1 10:31:18 Threaten ed miscarri age [id number] Completed 201809/23/2021 Threaten ed ;Recorde d Elsewher e: No [facility] S ource: EHR Statuary Painter doris: N Ab ce ID: 0001 Roel lable Time: 10:30:00 AM Emma conrad, [facility] 1 10:31:38 Mammogra phic calcific ation of breast [id number] Completed 201709/23/2021 Mammogra phic calcifcn found on diagnost ic imaging of breast;R ecorded Elsewher e: No [facility]at [facility] S ource: EHR Statuary Painter doris: Marjorie Berger ce ID: 0001 Roel lable Time: 01:00:00 PM Emma conrad, [facility] 1 10:30:05 Uterine size for dates discrepa ncy Completed 201909/23/2021 Uterine size-neeta e discrepa ncy, second trimeste r;Record ed Elsewher e: No [facility] S ource: EHR Statuary Painter doris: Marjorie Berger ce ID: 0001 Roel lable Time: 10:45:00 AM Emma conrad, [facility] 1 10:31:45 Gestatio n period, 35 weeks [id number] Completed 201909/23/2021 35 weeks gestatio n of pregnanc y;Record ed Elsewher e: No Locat ion: [facility] S ource: EHR Statuary Painter doris: N Ab ce ID: 0001 Roel lable Time: 11:30:00 AM Emma conrad [facility] 1 10:29:36 Complica tion of pregnanc y, childbir th and/or puerperi um [id number] Completed 201909/23/2021 Oth diseases and conditio ns compl preg/chl dbrth;Re corded Elsewher e: No Locat ion: [facility] N Ab ce ID: 0001 Roel lable Time: 03:15:00 PM Emma Cordova [facility] 1 10:31:40 Pain in female genitali a Completed 201709/23/2021 Dysmenor jannette, unspecif ied;Romulo rded Elsewher e: No Locat ion: [facility] N Ab ce ID: 0001 Roel lable Time: 01:00:00 PM Emma conrad [facility] [address] 10:30:[address] Concept Completed 201709/23/2021 Anxiety disorder , unspecif ied;Romulo rded Elsewher e: No Locat ion: [facility] N Ab ce ID: 0001 Roel lable Time: 09:45:00 AM Emma conrad [facility] 1 10:31:09 Increase d frequenc y of urinatio n [id number] Completed 201609/23/2021 Frequenc y of micturit ion;Romulo rded Elsewher e: No Locat ion: [facility]: N Jairti ce ID: 0001 Roel lable Time: 11:15:00 AM Emma conrad [facility] 1 10:29:56 Acute vaginiti s [id number] Completed 201609/23/2021 Acute vaginiti s;Record ed Elsewher e: No Locat ion: [facility] S [facility]ce[facility]: N Jairti ce ID: 0001 Roel lable Time: 11:00:00 AM Emma conrad, [facility] 1 10:28:00 Pelvic and perineal pain [id number] Completed 201709/23/2021 Pelvic and perineal pain;Rec orded Elsewher e: No [facility]: N Jairti ce ID: 0001 Roel lable Time: 11:15:00 AM Emma conrad [facility] 10:30:16 Gestatio n period, 29 weeks [id number] Completed 201909/23/2021 29 weeks gestatio n of pregnanc y;Record ed Elsewher e: No [facility] Marjorie Berger ce ID: 0001 Roel lable Time: 03:15:00 PM Emma conrad [facility] 10:29:27 Vaginola bial hernia Completed 201609/23/2021 Other specifie d noninfla mmatory disorder s of vagina;R ecorded Elsewher e: No [facility]: Marjorie Berger ce ID: 0001 Roel lable Time: 11:00:00 AM Emma conrad [facility] 1 10:31:49 Antenata l screenin g for malforma tion Completed 201809/23/2021 Encounte r for antenata l screenin g for malforma tions;Re corded Elsewher e: No Locat ion: [facility] S ource: EHR Statuary Painter doris: Marjorie Berger ce ID: 0001 Roel lable Time: 10:30:00 AM Emma Brittontz [place] [facility] 1 10:28:06 Blighted ovum [id number] Completed 201809/23/2021 Blighted ovum and nonhydat idiform mole;Rec orded Elsewher e: No Locat ion: [facility] S ource: EHR Statuary Painter doris: N Practi ce ID: 0001 Roel lable Time: 10:30:00 AM Emma conrad [facility] 10:28:08 Pregnanc y test negative [id number] Completed 201709/23/2021 Encounte r for pregnanc y test, result negative ;Recorde d Elsewher e: No Locat ion: [facility] S ource: EHR Statuary Painter doris: N Jairti ce ID: 0001 Roel lable Time: 09:45:00 AM Emma Cordova [place] [facility] 10:30:36 Gestatio n period, 20 weeks [id number] Completed 201809/23/2021 20 weeks gestatio n of pregnanc y;Record ed Elsewher e: No [facility] S ource: EHR Statuary Painter doris: N Jairti ce ID: 0001 Roel lable Time: 11:30:00 AM Emma conrad [facility] 10:29:24 Finding of regulari ty of menstrua l cycle Completed 201709/23/2021 Irregula r bleeding ;Recorde d Elsewher e: No Locat ion: [facility] S ource: EHR Statuary Painter doris: N Practi ce ID: 0001 Roel lable Time: 02:15:00 PM Emma Brittontz [place] [facility] 1 10:29:18 Substanc e abuse counseli ng Completed 201609/23/2021 Tobacco abuse counseli ng;Recor ded Elsewher e: No Locat ion: [facility] S ource: EHR Statuary Painter doris: N Ab ce ID: 0001 Roel lable Time: 11:00:00 AM Emma Cordova [place] [facility] 1 10:31:28 Depressi ve disorder [id number] Completed 201709/23/2021 Major depressi ve disorder , single episode, unspecif ied;Romulo rded Elsewher e: No [facility] S our[facility]: EHR Statuary Painter doris: N Ab ce ID: 0001 Roel lable Time: 09:00:00 AM Emma Cordova [facility] 10:28:54 Sexually transmit car infectio us disease [id number] Completed 201509/23/2021 STD;Romulo rded Elsewher e: No [facility] S ource: EHR Statuary Painter doris: N Ab ce ID: 0001 Roel lable Time: 10:30:00 AM Emma Cordova [place] [facility] 10:31:[address] Concept Completed 201909/23/2021 Decrease d movement s, third trimeste r, unsp;Rec orded Elsewher e: No [facility]at ion: [facility] [facility]: EHR Statuary Painter doris: N Jairti ce ID: 0001 Roel lable Time: 11:30:00 AM Emma conrad [facility] 1 10:31:14 Gestatio n period, 33 weeks [id number] Completed 201909/23/2021 33 weeks gestatio n of pregnanc y;Record ed Elsewher e: No Locat ion: [facility] S ource: EHR Statuary Painter doris: N Jairti ce ID: 0001 Roel lable Time: 03:00:00 PM Emma conrad [facility] 10:29:[address] Concept Completed 201609/23/2021 Encntr for general adult medical exam w/o abnormal findings ;Recorde d Elsewher e: No Locat ion: [facility] S ource: EHR Statuary Painter doris: N Practi ce ID: 0001 Roel lable Time: 11:00:00 AM Emma conrad, [facility] 1 10:31:16 Finding of contents of cervix [id number] Completed 201809/23/2021 Weeks of gestatio n of pregnanc y not specifie d;Record ed Elsewher e: No [facility] S ource: EHR Statuary Painter doris: N Practi ce ID: 0001 Roel lable Time: 10:30:00 AM Emma conrad, [facility] 1 10:29:13 Procedur e Completed 201609/23/2021 Encounte r for checking , reinsert ion or removal of implanta ble subderma l contrace ptive;Re corded Elsewher e: No [facility] S ource: EHR Statuary Painter doris: N Practi ce ID: 0001 Roel lable Time: 08:30:00 AM Emma conrad, [facility] 1 10:30:58 Pregnanc y, childbir th and puerperi um finding Completed 201409/23/2021 Oth pregnanc y related conditio ns, third trimeste r;Practi ce ID: 0001 Emma Cordova [facility], [facility] 1 10:28:13 prematur e rupture of membrane s [id number] Completed 201409/23/2021 Pretrm evelin ROM, unsp time betw rupt and onst labr, 3rd tri;Prac dante ID: 0001 Emma conrad, [facility] 1 10:30:54 Gestatio n less than 9 weeks [id number] Completed 201809/23/2021 Less than 8 weeks gestatio n of pregnanc y;Record ed Elsewher e: No Locat ion: [facility] S ource: EHR Statuary Painter doris: N Practi ce ID: 0001 Roel lable Time: 08:15:00 AM Emma conrad [facility] 1 10:29:22 Dysuria [id number] Completed 201709/23/2021 Dysuria; Recorded Elsewher e: No [facility]: EHR Statuary Painter doris: N Practi ce ID: 0001 Roel lable Time: 11:45:00 AM Emma conrad [facility] 10:28:56 Situatio n with explicit context Completed 201809/23/2021 Suprvsn of preg w poor reprodct v or obstet hx, first tri;Romulo rded Elsewher e: No [facility]: EHR Statuary Painter doris: N Practi ce ID: 0001 Roel lable Time: 08:15:00 AM Emma conrad [facility] 1 10:31:07 Gestatio n period, 34 weeks [id number] Completed 201909/23/2021 34 weeks gestatio n of pregnanc y;Record ed Elsewher e: No Locat ion: [facility] S ource: EHR Statuary Painter doris: N Practi ce ID: 0001 Roel lable Time: 11:00:00 AM Emma conrad [facility] 1 10:29:34 Exposure to sexually transmis sible disorder Completed 201709/23/2021 Contact w and exposure to infect w a sexl mode of transmis s;Practi ce ID: 0001 Emma conrad [facility] 10:29:00 Prematur e rupture of membrane s [id number] Completed 201909/23/2021 Evelin ROM, 7th0 betw rupt & onst labr, unsp weeks of gest;Pra ctice ID: 0001 Emma conrad, [facility] 1 10:30:51 False labor before 37 complete d weeks of gestatio n [id number] Completed 201909/23/2021 False labor before 37 complete d weeks of gest, third tri;Prac dante ID: 0001 Emma conrad, [facility] 10:29:08 Body mass index 30+ - obesity [id number] Completed 201709/23/2021 Body mass index (BMI) 32.0-32. 9, adult;Re corded Elsewher e: No Locat ion: [facility] S ource: EHR Statuary Painter doris: N Practi ce ID: 0001 Roel lable Time: 11:00:00 AM Emma conrad, [facility] 1 10:28:11 Past pregnanc y history of gestatio nal diabetes mellitus [id number] Active 2022 Tiffanie Flores MD [address], [place], [address], [facility] 3 19:36:59 Pregnanc y [id number] Completed 202208/16/2023 Flortyron MartinezTia [facility] 3 14:52:19 Gestatio nal diabetes mellitus [id number] Completed 2022 h/o gdm2A. Checking BS QID, serial growth, antenata l testing José Tia [facility] 3 14:52:11 Gestatio nal diabetes mellitus class A2 [id number] Completed 5u NPH AM, 5u Lispro Lunch, 15u NPH @ - [facility] 03/31 [facility] Rosa Elena Weber [facility], [facility] 3 14:52:11 Cholesta sis [id number] Completed 07/07 - Per Scarlett with M - she spoke with Dr. Dangelo and to cont ursodiol and anticipa te/assum e cholesta sis based on presenta tion. Rpt labs next week before [facility] appt on 07/21. Might recommen d 37-38wk alena conrad [facility] 3 14:52:12 Problem Notes None recorded. Procedures Surgical History Date Name Laterality Status Provider Name and Address Organization Details Recorded Time 02/14/20 25 Date of Last Pap Smear completed Tiffanie Botohe [facility] 06/01/2025 12:11:46 08/30/20 24 IUD Removal completed Maria T Carlton CNM [address], [place], [address], [facility] 08/31/2024 13:59:56 08/04/20 24 IUD Insertion completed Maria T Carlton CNM [address], [place], [address], [facility] 08/05/2024 08:44:48 07/29/20 22 Hysteroscopy completed Maria T Carlton CNM [address], [place], [address], [facility] 07/29/2022 08:52:41 07/29/20 22 Hysteroscopy completed Emma Cordova [facility] 07/29/2022 08:35:27 07/21/20 22 IUD Removal completed Swetha Schwab [facility] 07/21/2022 12:21:30 04/17/20 20 IUD Insertion completed Swetha Schwab [facility] 04/17/2020 12:09:21 03/20/20 20 IUD Insertion completed Swetha Schwab [facility] 03/20/2020 12:11:51 11/22/19 18 Appendectomy completed Emmapat Cordova [facility] 10/01/2020 19:16:40 11/22/19 14 completed Kayla Shantanu [facility] 10/08/2021 16:13:03 11/22/19 14 colonoscopy completed [facility] 09/23/2021 10:34:09 11/22/19 13 Dilation and curettage completed [facility] 09/23/2021 10:34:16 11/22/19 00 tonsillectomy completed [facility] 09/23/2021 10:34:23 Imaging Results None recorded. Procedure Notes None recorded. Medical Equipment None Reported. Allergies Allergen ID Allergen Name Allergen Category Reaction Reaction Severity Criticality Documentation Date Start Date Code Code System Note Provider Name and Address Organization Details Recorded Time prednison e medicatio n Not available Not available Not available 01/05/2023 8640 RxNorm Emma Cordova [facility] 3 10:49:28 2666 amoxicill in medicatio n Not available Not available Not available 10/01/2020 723 RxNorm Emma Cordova [facility] 1 10:27:49 91 aspirin medicatio n Not available Not available Not available 03/04/2020 1191 RxNorm Caterina Gingerdeanna [facility] 0 17:51:36 Medications Name Sig Start Date Stop Date Status Note LastModified by Organization Details LastModified Time nifedipin e ER 30 mg tablet,ex tended release 24 hr TAKE 1 TABLET BY MOUTH DAILY 09/03 completed Not Available Not Available Not Available celecoxib 200 mg capsule TAKE 1 CAPSULE BY MOUTH THE NIGHT BEFORE PROCEDUR E AND 2 CAPSULES THE MORNING OF PROCEDUR E 07/29 completed Not Available Not Available Not Available cyclobenz aprine 10 mg tablet TAKE 1 TABLET BY MOUTH TWICE DAILY 09/03 completed Not Available Not Available Not Available amoxicill in 500 mg capsule TAKE 1 CAPSULE BY MOUTH EVERY 12 HOURS FOR 10 DAYS 11/08 completed Not Available Not Available Not Available Vitamin B-6 25 mg tablet 09/03 completed Not Available Not Available Not Available triamcino lone acetonide 0.5 % topical cream APPLY TOPICALL Y TO THE AFFECTED AREA TWICE DAILY FOR 7 DAYS DIRECTED 08/04 completed Not Available Not Available Not Available azithromy tess 250 mg tablet 11/08 completed Not Available Not Available Not Available hydrocodo ne 5 mg-acetam inophen 325 mg tablet TAKE 1 TABLET BY MOUTH EVERY 6 HOURS NEEDED FOR PAIN 11/08 completed Not Available Not Available Not Available promethaz ine 25 mg rectal supposito ry insert 1 supposit ory by rectal route every morning 02/01 completed Prescrib ed Elsewher e: No Locat ion: [facility] odify By: [employer] Encoun ter DateTime : 04/23/20 11:17:56 AM Not Available Not Available Not Available ondansetr on HCl 8 mg tablet TAKE 1 TABLET BY MOUTH 2 HOURS PRIOR TO PROCEDUR E 07/29 completed Not Available Not Available Not Available promethaz ine 12.5 mg tablet Take 1 tablet 4 times a day by oral route. 04/28 completed Not Available Not Available Not Available metronida zole 0.75 % (37.5 mg/5 gram) vaginal gel Insert 1 applicat orful every day by vaginal route. 10/01 completed Not Available Not Available Not Available Monistat 7 2 % vaginal cream insert 1 applicat orful by vaginal route every day at bedtime 02/01 completed Prescrib ed Elsewher e: No [facility] odify By: [employer] Encoun ter DateTime : 10/10/20 15 11:00:00 AM Not Available Not Available Not Available prednison e 20 mg tablet TAKE 3 TABLETS BY MOUTH EVERY DAY FOR 5 DAYS 01/05 completed Not Available Not Available Not Available Pyridium 200 mg tablet take 1 tablet by oral route 3 times every day after meals 10/20 completed Prescrib ed Elsewher e: No Locat ion: [facility] odify By: margaret turner DateTime : 05/28/20 17 11:15:00 AM Not Available Not Available Not Available Diflucan 150 mg tablet take 1 tablet by oral route once 04/26 completed Prescrib ed Elsewher e: No Locat ion: [facility] odify By: annalisa turner DateTime : 03/29/20 17 11:00:00 AM Not Available Not Available Not Available metronida zole 500 mg tablet TAKE 1 TABLET BY MOUTH TWICE DAILY FOR 7 DAYS 09/03 completed Not Available Not Available Not Available sulfameth oxazole 800 mg-trimet hoprim 160 mg tablet TAKE 1 TABLET BY MOUTH EVERY 12 HOURS FOR 14 DAYS 01/05 completed Not Available Not Available Not Available Zofran 4 mg tablet Take 2 tablets twice a day by oral route. 10/01 completed Not Available Not Available Not Available oxycodone -acetamin ophen 5 mg-325 mg tablet TAKE 2 TABLETS BY MOUTH 2 HOURS PRIOR TO PROCEDUR E 07/29 completed Not Available Not Available Not Available amoxicill in 875 mg tablet TAKE 1 TABLET BY MOUTH EVERY 12 HOURS FOR 10 DAYS 08/04 completed Not Available Not Available Not Available metoclopr amide 5 mg tablet TAKE 1 TABLET BY ORAL ROUTE 4 TIMES EVERY DAY 30 MINUTES BEFORE MEALS AND AT BEDTIME 06/01 completed Not Available Not Available Not Available Zoloft 50 mg tablet TAKE 1 TABLET BY ORAL ROUTE EVERY DAY 09/09 completed Prescrib ed Elsewher e: No Locat ion: [facility] odify By: senait palomo DateTime : 07/21/20 18 04:08:38 PM Not Available Not Available Not Available dicyclomi ne 20 mg tablet 10/01 completed Not Available Not Available Not Available betametha sone valerate 0.1 % topical cream apply by topical route every day a thin layer to the affected area(s) 02/01 completed Prescrib ed Elsewher e: No Locat ion: [facility] odify By: [email or web address] z Encoun ter DateTime : 10/10/20 15 11:00:00 AM Not Available Not Available Not Available OneTouch Ultra Test strips USE DIRECTED TO TEST BLOOD GLUCOSE FOUR TIMES DAILY 09/03 completed Not Available Not Available Not Available dexametha sone 1 mg tablet TAKE 1 TABLET BY MOUTH WHEN DIRECTED 02/13 completed Not Available Not Available Not Available benzonata te 100 mg capsule TAKE 1 CAPSULE BY MOUTH EVERY 8 HOURS NEEDED 08/04 completed Not Available Not Available Not Available cephalexi n 500 mg capsule TAKE 1 CAPSULE BY MOUTH EVERY 6 HOURS FOR 7 DAYS 03/04 completed Not Available Not Available Not Available promethaz ine 25 mg tablet take 1 tablet by oral route every 4 - 6 hours as needed 10/01 completed Not Available Not Available Not Available ursodiol 300 mg capsule TAKE 1 CAPSULE BY MOUTH TWICE DAILY DIRECTED 09/03 completed Not Available Not Available Not Available Ortho-Nov um 35 (28) 1 mg-35 mcg tablet TAKE 1 TABLET BY ORAL ROUTE EVERY DAY FOR 28 DAYS 06/23 completed Prescrib ed Elsewher e: No [facility] odify By: annalisa turner DateTime : 09/12/20 12:13:51 PM Not Available Not Available Not Available Humulin N NPH U-100 Insulin (isophane susp) 100 unit/mL subcutane ous INJECT 5 UNITS SUBCUTAN EOUS AT BEDTIME 04/28 completed Not Available Not Available Not Available omeprazol e 20 mg capsule,d elayed release TAKE 1 CAPSULE BY MOUTH DAILY FOR 14 DAYS 11/08 completed Not Available Not Available Not Available estradiol 2 mg tablet take 1 tablet by oral route every day 02/01 completed Prescrib ed Elsewher e: No [facility] odify By: jill palomo DateTime : 04/03/20 16 02:45:00 PM Not Available Not Available Not Available hydroxyzi ne HCl 25 mg tablet TAKE 1 TABLET BY MOUTH EVERY 6 HOURS NEEDED 01/05 completed Not Available Not Available Not Available insulin lispro (U-100) 100 unit/mL subcutane ous solution INJECT 5 UNITS UNDER THE SKIN AT LUNCH 09/03 completed Not Available Not Available Not Available diazepam 10 mg tablet TAKE 1 TABLET BY MOUTH 1 HOUR PRIOR TO PROCEDUR E 07/29 completed Not Available Not Available Not Available cefuroxim e axetil 500 mg tablet 10/01 completed Not Available Not Available Not Available methylpre dnisolone 4 mg tablets in a dose pack FOLLOW PACKAGE DIRECTIO NS 06/01 completed Not Available Not Available Not Available albuterol sulfate HFA 90 mcg/actua tion aerosol inhaler INHALE 2 PUFFS BY MOUTH EVERY 4 HOURS NEEDED 11/08 completed Not Available Not Available Not Available Vitamin D2 1,250 mcg (50,000 unit) capsule take 1 capsule by oral route every week 02/01 completed Prescrib ed Elsewher e: No Locat ion: [facility] odify By: raul correa DateTime : 09/02/20 15 09:21:34 AM Not Available Not Available Not Available norethind jatinder (contrace ptive) 0.35 mg tablet TAKE 1 TABLET BY MOUTH EVERY DAY 02/13 completed Not Available Not Available Not Available Zoloft 25 mg tablet take 1 tablet by oral route every day 03/29 completed Prescrib ed Elsewher e: No Locat ion: [facility] odify By: raul correa DateTime : 04/03/20 16 02:45:00 PM Not Available Not Available Not Available ondansetr on 4 mg disintegr ating tablet DISSOLVE 1 TABLET ON THE TONGUE EVERY 8 HOURS NEEDED FOR NAUSEA OR VOMITING 11/08 completed Not Available Not Available Not Available Necon 0.5/35 (28) 0.5 mg-35 mcg tablet take 1 tablet by oral route every day 06/23 completed Prescrib ed Elsewher e: No Locat ion: [facility] odify By: annalisa turner DateTime : 09/09/20 18 11:45:00 AM Not Available Not Available Not Available ParaGard T 380A 380 square mm intrauter ine device Take 1 device by intraute rine route. 08/30 completed Not Available Not Available Not Available dicyclomi ne 10 mg capsule TAKE 2 CAPSULES BY MOUTH FOUR TIMES DAILY NEEDED FOR PAIN 11/08 completed Not Available Not Available Not Available amoxicill in 875 mg-potass ium clavulana te 125 mg tablet TAKE 1 TABLET BY MOUTH EVERY 12 HOURS FOR 7 DAYS 11/08 completed Not Available Not Available Not Available buspirone 15 mg tablet TAKE 1 TABLET BY ORAL ROUTE 3 TIMES EVERY DAY. 09/09 completed Prescrib ed Elsewher e: No Locat ion: [facility] odify By: senait palomo DateTime : 08/01/20 02:08:52 PM Not Available Not Available Not Available insulin syringe U-100 with needle 0.3 mL 30 10/01 completed Not Available Not Available Not Available insulin syringe U-100 with needle 0.3 mL 29 gauge 10/01 completed Not Available Not Available Not Available Poly-Iron 150 mg iron capsule 10/01 completed Not Available Not Available Not Available nitrofura ntoin monohydra te/macroc rystals 100 mg capsule TAKE 1 CAPSULE BY MOUTH EVERY 12 HOURS 11/08 completed Not Available Not Available Not Available Terumo Insulin Syringe 0.3 mL 30 x 3/8 Inj 5 u NPH by HS 12/08 completed Prescrib ed Elsewher e: No Locat ion: [facility] odify By: lexi correa DateTime : 12/08/19 10:45:00 AM Not Available Not Available Not Available Humalog KwikPen (U-100) Insulin 100 unit/mL subcutane ous 09/03 completed Not Available Not Available Not Available TRUEplus Insulin 0.5 mL 31 gauge x 5/16 syringe USE DIRECTED FOUR TIMES DAILY 09/03 completed Not Available Not Available Not Available TRUEplus Insulin 1 mL 29 gauge x 1/2 syringe USE DIRECTED 04/28 completed Not Available Not Available Not Available Lomedia 24 Fe 1 mg-20 mcg (24)/75 mg (4) tablet take 1 tablet by oral route every day 10/20 completed Prescrib ed Elsewher e: No Locat ion: [facility] odify By: margaret Barroso r DateTime : 05/28/20 11:15:00 AM Not Available Not Available Not Available Humulin N NPH U-100 Insulin KwikPen 100 unit/mL (3 mL) subcutane ous 09/03 completed Not Available Not Available Not Available Fora [id number] 10-D20 strips-la ncets 30 gauge combo pack checking BS QID fasting and 1hr pp 07/21 completed Prescrib ed Elsewher e: No Locat ion: [facility] odify By: rubi Barroso r DateTime : 11/27/19 11:22:44 AM Not Available Not Available Not Available Addyi 100 mg tablet Take 1 tablet every day by oral route. 02/13 completed Not Available Not Available Not Available Blisovi Fe 12/11 (28) 1 mg-20 mcg (21)/75 mg (7) tablet TAKE 1 TABLET BY MOUTH EVERY DAY active Not Available Not Available No t Available Kyleena 17.5 mcg/24 hr (up to 5 years) 19.5 mg intrauter ine device Take 1 device by intraute rine route. 07/21 completed Kyleena removal by 03/20/20 25 Not Available Not Available Not Available TRUEplus Pen Needle 31 gauge x 5/16 USE DIRECTED FOUR TIMES DAILY 09/03 completed Not Available Not Available Not Available TRUEplus Pen Needle 32 gauge x 5/32 USE FOUR TIMES DAILY 09/03 completed Not Available Not Available Not Available Solosec [address] granules in packet take 1 packet by oral route and sprinkle contents onto applesau ce, yogurt or pudding and take within 30 minutes once 06/23 completed Prescrib ed Elsewher e: No Locat ion: [facility] odify By: annalisa Barroso r DateTime : 09/13/20 18 09:42:56 AM Not Available Not Available Not Available OneTouch Ultra Blue Test Strip 10/01 completed Not Available Not Available Not Available Orilissa 200 mg tablet TAKE 1 TABLET BY MOUTH TWICE DAILY 06/01 completed Not Available Not Available Not Available OneTouch Ultra2 Meter 10/01 completed Not Available Not Available Not Available OneTouch Delica Plus Lancet 33 gauge USE DIRECTED TO CHECK BLOOD SUGAR FASTING AND WITH MEALS 07/21 completed Not Available Not Available Not Available OneTouch Delica Plus Lancet 30 gauge USE DIRECTED 09/03 completed Not Available Not Available Not Available Slynd 4 mg (28) tablet TAKE 1 TABLET BY MOUTH EVERY DAY 01/17 completed Not Available Not Available Not Available Baqsimi 3 mg/actuat ion nasal spray 09/03 completed Not Available Not Available Not Available ID NOW COVID-19 Test Kit TEST DIRECTED TODAY 01/05 completed Not Available Not Available Not Available BinaxNOW COVID-19 Ag Self Test kit TEST DIRECTED TODAY 08/04 completed Not Available Not Available Not Available [email or web address] de 06/01 completed Not Available Not Available Not Available Dexcom G7 Sensor device TEST BLOOD GLUCOSE DIRECTED . CHANGE EVERY 10 DAYS 07/23 completed Not Available Not Available Not Available Vitals Date Recorded Body height Body mass index (BMI) Body weight Systolic And Diastolic Provider Name and Address Organization Details Last Updated DateTime 01/17/2025 157.48 cm 34.8 kg/m2 92758.55 g 118/75 mm[Hg] Andra Boyce [facility] 01/17/2025 15:34:42 Date Recorded Body height Body mass index (BMI) Body weight Systolic And Diastolic Provider Name and Address Organization Details Last Updated DateTime 02/13/2025 157.48 cm 34.1 kg/m2 49661.34 g 118/78 mm[Hg] Kimberly Kohli [facility] 02/13/2025 16:31:57 Date Recorded Body height Body mass index (BMI) Body weight Systolic And Diastolic Provider Name and Address Organization Details Last Updated DateTime 06/01/2025 157.48 cm 33.8 kg/m2 09018.59 g 126/75 mm[Hg] Tiffanie Boothe [facility] 06/01/2025 12:07:28 Social History Question Answer Notes LastModified by Organizat ion Details LastModified Time Tobacco Smoking Status Former Smoker Emma Cordova [facility] 10/01/2020 15:14:21 If You Are , What Was Your Level Of Alcohol Consumption Prior To ? Occasional [email or web address] Information not available 02/01/2023 Are You Blind Or Do You Have Difficulty Seeing? No [email or web address] Information not available 09/23/2021 In The 14 Days Before Symptom Onset, Have You Had Close Contact With A Laboratory-confir med COVID-19 While That Case Was Ill? No [email or web address] Information not available 02/01/2023 In The 14 Days Before Symptom Onset, Have You Had Close Contact With A Person Who Is Under Investigation For COVID-19 While That Person Was Ill? No [email or web address] Information not available 02/01/2023 Have You Been To An Area Known To Be High Risk For COVID-19? No [email or web address] Information not available 02/01/2023 Are You Deaf Or Do You Have Serious Difficulty Hearing? No Information not available 09/23/2021 What Type Of Diet Are You Following? REGULAR [email or web address] Information not available 09/23/2021 What Was The Date Of Your Most Recent Tobacco Screening? 08/30/2024 Information not available 08/30/2024 Do You Use Your Seat Belt Or Car Seat Routinely? Yes [email or web address] Information not available 02/01/2023 Do You Have Smoke And Carbon Monoxide Detectors In Your Home? Yes Information not available 02/01/2023 How Much Tobacco Do You Smoke? No [email or web address] Information not available 05/21/2020 Do You Use Sunscreen Routinely? Yes [email or web address] Information not available 02/01/2023 Has Tobacco Cessation Counseling Been Provided? No Information not available 02/01/2023 Do You Have Difficulty Walking Or Climbing Stairs? No [email or web address] Information not available 07/21/2022 Sex: Unknown Functional Status Question Answer Note LastModified by Organizat ion Details LastModified Time Do you use any illicit or recreational drugs? No [email or web address] Information not available 02/01/2023 Do you or have you ever used any other forms of tobacco or nicotine? No [email or web address] Information not available 02/01/2023 What is your level of alcohol consumption? None [email or web address] Information not available 02/01/2023 Do you or have you ever used smokeless tobacco? Never used smokeless tobacco [email or web address] Information not available 05/21/2020 Are you able to walk? YESWOREST [email or web address] Information not available 09/23/2021 Are you able to care for yourself? Yes [email or web address] Information not available 07/21/2022 Do you have difficulty dressing or bathing? No [email or web address] Information not available 07/21/2022 Do you or have you ever used e-cigarettes or vape? Never used electronic cigarettes Information not available 05/21/2020 What is your exercise level? Occasional walking [email or web address] Information not available 03/05/2020 Mental Status Question Answer Note LastModified by Organization D etails LastModified Time Do you feel stressed (tense, restless, nervous, or anxious, or unable to sleep at night)? [id number] Information not available 02/01/2023 Family History Relationship Description Onset Age of this Age Resolved Age Notes LastModified by Organization Details LastModified Time Mother Tuberculosis [email or web address] Not availa ble 03/04/2020 17:47:07 Brother Asthma jgumber Not available 0 03/04/2020 17:47:19 Daughter History of epilepsy jgumber Not available 2019 17:48:06 Medical History Condition Response Allergies (Food, seasonal, environmental ) Y Other Y Breast Cancer N Drug/Latex Allergies/Reactions Y Blood Transfusion N Dermatologic Disorders N Lung Disease N Defects or Inherited Disease N Breast Problem N Gestational Diabetes Y Hematologic disorders N Anesthesia Complications N History of STI N Deep Vein Thrombosis N Polycystic ovary syndrome N Anxiety Disorder Y Autoimmune disease N Arthritis N Infertility N Polyps N Acid Reflux (GERD) Y History of abnormal pap N Cancer N Stroke N Varicosities N Neurologic/Epilepsy N Endometriosis N High Cholesterol N Headaches N Fibromyalgia N Kidney Disease N Heart Problems N Kidney or Bladder Problems N Thyroid Problems N GI Problems N Eating Disorder N Anemia N Art (IVF or FET) N Psychiatric Illness N Ovarian Cancer N Diabetes Y Pulmonary (TB, Asthma) N Hepatitis/Liver Disease N No Past Medical History N Eczema N Urinary Tract Infection N Abuse/Domestic Violence N Asthma N Trauma/Violence N Depression/ depression Y Heart Disease N Pre-Eclampsia N Hypertension N Osteoporosis N Thrombophilias N Gynecological History Statement/Question Response Abnormal Pap N Date of Last Mammogram Flow Moderate Date of LMP 04/02/2025 Was last menstrual period normal N STIs/STDs Yes HPV Vaccine N Duration of Flow (days) 5 Current Control Method Are cycles usually normal N Date of Last Colonoscopy Frequency of Cycle (Q days) 28 Sexually Active? Y Menses Monthly N Date of DEXA bone scan Age of first menstrual cycle 13 Date of Last Pap Smear 02/13/2025 Sexual Problems? N Desired Control Method LMP Approximate 11/22/2013 Obstetrics History GPAL:G 6 P 3 0 3 3 Type Value Full Term 3 Spontaneous 3 Living 3 Total 6 Past Encounters Encounter ID Performer Location Encounter Start Date Encounter Closed Date Diagnosis/Indication Diagnosis SNOMED-CT Code Diagnosis ICD10 Code Diagnosis Note [id number] Swetha Schwab CNM [place] [address] [address] 03/05/2020 14:17:28 03/07/2020 11:23:54 care [id number] Z39.2 Continue to watch for signs/symp toms of post depression . Return one year from last pap smear for a well woman exam. Patient received above instructio ns, and questions have been answered. If you have any questions please call or respond to this email. Patient was made aware of the patient portal and may obtain a paper copy of today's plan if desired [facility] education [id number] Z30.09 Discussed all control options and pt would like Kylena IUD. I have discussed in detail all risks and benfits including risk of infection and perforatio n. She will need to continue to abstain from intercours e and have hcg drawn the day prior to insertion. She is aware if a were in process this could cause loss of which is why continued abstinence is so important. Will schedule IUD for 6-8 weeks post . [id number] Swetha Schwab CNM [place] [address] [address] 03/20/2020 10:56:39 03/20/2020 12:28:56 Insertion of intrauterine contraceptive device 81585653 Z30.430 Vaginitis 96194200 N76.0 Discussed use of mild soap like dove or ivory, cotton underwear w/out dye, hypoallerg enic detergent, wipe from front to back, avoid tub baths, keep perineum clean and dry, d/c use of baby wipes. Encouraged daily intake of yogurt or womens health probiotic. Internal and external affirm collected. Will treat with flagyl for possible BV. Very slight odor noted on exam. [id number] [facility] [address],[place] [address] 04/17/2020 10:28:01 04/17/2020 12:36:54 IUD check 278553385 Z30.431 Pt doing well. No complaints . Unable to see strings. U/S ordered. [id number] Venkat Valdez MD [place] [address],[place] [address] 04/17/2020 10:50:50 04/17/2020 11:23:56 Mechanical complication of intrauterine contraceptive device 886236428 T83.39XA [id number] [facility] [address],[place] [address] 05/21/2020 10:26:33 05/21/2020 11:40:42 Vaginitis 21782184 N76.0 Mass of right breast 154 [id number] 4767829 N63.10 [id number] Maria T Carlton CNM [place] [address] [place] [address] 10/01/2020 14:54:13 10/01/2020 17:52:14 Mastitis associated with 896972803 O91.23 [id number] Maria T Carlton CNM [place] [address],[place] [address] 09/23/2021 09:23:09 09/23/2021 11:11:03 Dysmenorrhea 428387707 N94.6 [id number] Venkat Valdez MD [place] [address],[place] [address] 09/23/2021 09:21:32 09/23/2021 10:11:19 Pain in pelvis 77940169 R10.2 [id number] Swetha Schwab [place] [address],[place] [address] 09/24/2021 10:04:00 09/24/2021 11:52:09 [id number] Swetha Schwab [place] [address],[place] [address] 10/13/2021 09:38:43 10/13/2021 12:11:58 Gynecologic examination 50050125 Z01.419 Take Calcium with Vitamin D 1200mg daily if not receiving in daily diet. It is strongly advised to have an annual flu shot and up can obtain at most pharmacies . If you have not had a TDap shot in the last 10 years you should obtain one as well. Discussed with patient & provided with informatio n regarding Gardisil vaccine to prevent the 4 strains for HPV that cause cervical cancer if under age 26. Encourage safe sexual practices, to use condoms and limit partners if not already in a monogamous relationsh ip. Do monthly self breast exams. Have mammogram yearly or every other year depending on family history. BRCA testing is now available for patients with strong genetic history of female cancer. If interested contact the office. Engage in daily exercise of low impact aerobic exercise 45-60 minutes 4-5 times weekly. Avoid tobacco and illicit drugs as well as using moderation with alcohol intake less than 1-2 8 oz beverages daily. This lifestyle behavior pattern will lead to less health conditions and longer life span. If BMI greater than 25 weight watchers or dietary consult advised.IU D string not seen but pt just had a u/s that showed normal placement. Difficult to see inside the os d/t angle of cervix. Pt declines repeat u/s. Patient received above instructio ns, and questions have been answered. If you have any questions please call or respond to this email. Patient was made aware of the patient portal and may obtain a paper copy of today's plan if desired. [id number] Venkat Valdez MD [place] [address],[place] [address] 11/03/2021 09:19:52 11/03/2021 12:45:09 Pain in pelvis 94225331 R10.2 [id number] Venkat Valdez MD [place] [address],[place] [address] 03/17/2022 11:51:43 03/17/2022 12:33:52 Pain in pelvis 16354667 R10.2 [id number] Venkat Valdez MD [place] [address],[place] [address] 07/17/2022 13:14:21 07/17/2022 13:59:55 Uncertain viability of 242233436 O36.80X0 Z3A.00 [id number] Venkat Valdez MD [place] [address],[place] [address] 07/17/2022 14:13:20 07/17/2022 14:30:02 test positive 790725953 Z32.01 Pt here with 3 faint positive UPTs at home and IUD. 6w5d off of lmp. Lots of cramping and she has been spotting since 07/10. Ultrasound shows IUD in uterus, strings not visualized , and no signs of IUP or ectopic. 2 UPTs completed in office and both negative. Ok per SP to send beta HCG for confirmati on. Pt c/o IUD causing her extreme cramping and spotting and wants IUD removed. Reviewed with AD since strings aren't visualized in cervix and per AD any provider can attempt to remove IUD in office first and then would go from there to see if hyst IUD removal would be needed. Pt informed and schd for 07/21 with for IUD removal. Pt sent to lab for HCG. Pt verbalized undertstan ding. ALEXEY jung [id number] Swetha Schwab CNM [place] [address],[place] [address] 07/21/2022 10:26:55 07/22/2022 03:50:54 Urinary symptoms 388124383 R39.9 Removal of intrauterine device 68250981 Z30.432 NO CHARGE VISITJie ble to remove. Will need to schedule surgical removal. Pt has specifical ly requested female. She has met Maria T in the past. [facility] 071511233 Z30.9 Discussed all control options in great detail. Pt would like to start ocp. She is aware of the risks and benefits. She does not have any medical condition that is contraindi cated with the use of estrogen containing control. Pt will start her pills on Wednesday. She is aware it is not effective for control the first month. She is also aware of the importance of taking at the same time every day. Encouraged use of condoms as the pill does not protect against STD's. Will return in 3 months for med check. Consent was read and signed. Pt verbalized understand ing. Planning removal of IUD. [id number] Maria T Carlton [facility] [address],[place] [address] 07/24/2022 10:09:28 07/24/2022 12:56:34 Mechanical complication of intrauterine contraceptive device 420868424 T83.39XA [id number] Maria T Carlton [facility] [address],[place] [address] 07/29/2022 08:31:32 07/29/2022 10:16:00 Screening procedure 60264368 Z13.9 Mechanical complication of intrauterine contraceptive device 648711171 T83.39XA [id number] Venkat Valdez MD [place] [address],[place] [address] 12/24/2022 12:30:14 12/24/2022 13:38:57 Abdominal pain in early 761458900 Z33.1 Z3A.01 [id number] MD Cam Stewart [address],[place] [address] 01/05/2023 09:52:34 01/05/2023 11:08:07 [id number] Tiffanie Flores MD [place] [address],[place] [address] 01/05/2023 09:52:55 01/07/2023 11:38:15 Amenorrhea 49519011 N91.2 test positive 453606151 Z32.01 Moderate h yperemesis gravidarum 405933370 O21.0 Maternal o besity complicating , childbirth and the puerperium, antepartum 4168841712 07 O99.211 bmi 38 Past pregn maryjane history of gestational diabetes mellitus 443688692 Z86.32 [id number] Tiffanie Flores MD [place] [address],[place] [address] 01/20/2023 10:14:15 01/20/2023 10:44:31 [id number] Tiffanie Flores MD [place] [address],[place] [address] 02/01/2023 11:22:12 02/01/2023 12:06:15 screening 719964777 Z36.82 [id number] [facility] [address],[place] [address] 02/01/2023 11:23:56 02/02/2023 17:42:44 screening 877048191 Z36.89 Nausea and vomiting 1693 2000 R11.2 [id number] Venkat Valdez MD [place] [address],[place] [address] 02/18/2023 12:23:48 02/18/2023 13:10:32 Abdominal pain in 110835594 O99.891 R10.9 Z3A.14 [id number] [facility] [address],[place] [address] 03/04/2023 10:53:15 03/04/2023 11:50:57 Routine care 738993601 Z34.92 [id number] MD Cam Rajput [address],[place] [address] 03/09/2023 11:49:22 03/09/2023 13:36:29 Spotting per vagina in 680246141 O26.859 Z3A.17 [id number] MD Cam Rajput [address],[place] [address] 03/24/2023 09:55:15 03/24/2023 11:17:49 screening 411446407 Z36.3 [id number] Maria T Carlton [facility] [address],[place] [address] 04/02/2023 10:39:24 04/02/2023 14:40:47 Routine care 851898930 Z34.92 [id number] Maria T Carlton [facility] [address],[place] [address] 04/28/2023 17:16:58 04/28/2023 18:36:35 Routine care 898562583 Z34.92 [id number] Maria T Carlton [facility] [address],[place] [address] 05/26/2023 12:36:23 05/26/2023 13:51:10 Routine care 985620961 Z34.92 [id number] Maria T Carlton [facility] [address],[place] [address] 06/09/2023 12:25:04 06/09/2023 13:00:34 Routine care 512480053 Z34.92 [id number] Venkat Valdez MD [place] [address],[place] [address] 06/21/2023 12:25:43 06/21/2023 13:11:46 Abdominal pain in 203108378 O99.891 R10.9 Z3A.32 [id number] Venkat Valdez MD [place] [address],[place] [address] 06/25/2023 11:42:53 06/25/2023 12:39:59 Gestational diabetes mellitus class A2 54971185 O24.414 [id number] Maria T Carlton [facility] [address],[place] [address] 06/25/2023 11:43:21 06/25/2023 13:14:41 Routine care 895390801 Z34.92 Pruritic disorder 516389 002 L29.9 [id number] Venkat Valdez MD [place] [address],[place] [address] 07/02/2023 11:59:27 07/02/2023 12:37:35 Gestational diabetes mellitus class A2 51077375 O24.414 [id number] [facility] [address],[place] [address] 07/02/2023 12:00:26 07/02/2023 14:15:10 Routine care 627410412 Z34.92 [id number] MD Cam Rajput [address],[place] [address] 07/09/2023 11:54:33 07/09/2023 12:41:17 Gestational diabetes mellitus class A2 97431106 O24.414 [id number] [facility] [address],[place] [address] 07/09/2023 11:54:55 07/09/2023 13:40:47 Routine care 113550104 Z34.92 [id number] Venkat Valdez MD [place] [address],[place] [address] 07/16/2023 11:31:37 07/16/2023 13:04:56 Gestational diabetes mellitus class A2 44422813 O24.414 [id number] [facility] [address],[place] [address] 07/16/2023 11:31:57 07/16/2023 13:50:03 Routine care 122648610 Z34.92 [id number] MD Cam Rajput [address],[place] [address] 07/23/2023 11:55:24 07/23/2023 15:31:33 Gestational diabetes mellitus class A2 27825633 O24.414 [id number] Maria T Carlton [facility] [address],[place] [address] 07/23/2023 11:56:11 07/23/2023 14:20:32 Routine care 244905317 Z34.92 [id number] Maria T Carlton [facility] [address],[place] [address] 09/03/2023 10:37:34 09/03/2023 14:51:03 care 612609845 Z39.0 start slynd # samples given f/u wwe [id number] Maria T Carlton [facility] [address],[place] [address] 08/04/2024 14:02:09 08/05/2024 10:49:38 Screening procedure 64059247 Z13.9 Insertion of intrauterine contraceptive device 35497015 Z30.430 pt vinny well f/u one month iud check [id number] Venkat Valdez MD [place] [address],[place] [address] 08/28/2024 14:06:50 08/28/2024 15:00:15 Pain in pelvis 48142012 R10.2 N93.9 [id number] Maria T Carlton [facility] [address],[place] [address] 08/28/2024 14:38:29 08/28/2024 14:54:07 Urinary symptoms 258895348 R39.9 [id number] Maria T Carlton [facility] [address],[place] [address] 08/30/2024 18:12:03 08/31/2024 10:12:39 Screening procedure 81746159 Z13.9 Uses IUD (intrauterine device) contraception 770783646 Z97.5 [facility] 545034763 Z30.9 start slynd daily, give one month to be effective f/u wwe [id number] CLAUDETTE SINGH MD [place] [address],[place] [address] 11/08/2024 16:19:39 11/13/2024 02:55:06 Cystocele 497474435 N81.10 - patient reports worsening bulging sensation, pelvic pain during intercours e- apex and posterior compartmen t well supported on exam; grade 2 cystocele noted- recommend pelvic floor PT as first line to strengthen pelvic floor muscles- may need further evaluation from urogyn if PT does not improve symptoms Irregular intermenstrual bleeding 90433649 N92.1 - periods previously well controlled with Slynd- no inciting events- no laceration s or abrasions on exam- will evaluate with pelvic US [id number] Venkat Valdez MD [place] [address] [address] 12/01/2024 11:57:07 12/01/2024 13:25:19 Abnormal uterine bleeding 3679540617 9100 N93.9 [id number] CLAUDETTE SINGH MD [place] [address] [address] 01/17/2025 15:22:43 01/18/2025 05:09:05 Reduced libido 6987949 R68.82 - patient reports long history of hypoactive sexual desire- symptoms present prior to pregnancie s- disruptive to relationsh ip with partner- no increased stress, no dyspareuni a- discussed no role for testostero ne supplement ation in premenopau alycia patients given risk of irreversib le side effects- discussed Mali yue, Addyi, and Vyleesi; patient would like to start Addyi therapy Dysmenorrhea 878290728 N 94.6 - patient reports periods are now regular on mini pill however still painful and heavy- pelvic US normal, no structural cause seen- suspicious for endometrio sis given cyclic heavy and painful bleeding- periods improved but not at ideal control on mini pill- Slynd not approved by insurance- will trial Orlissa for endometrio sis pain- rtc 2 months for med check [id number] KATLYN Nation [place] [address] [address] 02/13/2025 16:23:26 02/14/2025 23:08:15 Gynecologic examination 06957045 Z01.419 WWEBC - condomsPap - done todaySTI screen - declinedRo utine labs - PCPRTC in 1 yr or sooner if needed doing well on orlissa, symptoms have significan tly improved. Has f/u scheduled with Dr. Singh It is strongly advised to have an annual flu shot and up can obtain at most pharmacies . If you have not had a TDap shot in the last 10 years you should obtain one as well. Discussed with patient & provided with informatio n regarding the HPV vaccine if applicable . Encourage safe sexual practices, to use condoms and limit partners if not already in a monogamous relationsh ip. Do monthly self breast exams. BRCA testing is now available for patients with strong genetic history of female cancer. If interested contact the office. Engage in regular exercise. Avoid tobacco and illicit drugs. This lifestyle behavior pattern will lead to less health conditions and longer life span. If BMI greater than 25 dietary consult advised. Questions answered. [id number] Venkat Valdez MD [place] [address],[place] [address] 06/01/2025 11:25:47 06/01/2025 12:15:53 Finding of menstrual bleeding 293399625 Z36.87 Z3A.01 [id number] [facility] [address],[facility] [address] 06/01/2025 11:26:27 06/01/2025 13:07:54 Threatened miscarriage 42811879 O20.0 f/u hcg and possible USprecauti ons reviewedf/ u pending lab resultscal l if any bleeding Health Concerns Section Related Observation LastModified by Organization Detai ls LastModified Time None Recorded Concern Status LastModified by Organization Details LastModified Time None Recorded Advance Directives Directive None Recorded Payers Insurance Date Sequence Insurance Name Policy Number Policy Horne Covered Member ID Horne Member ID Guarantor Name 06/04/2025 1 [employer] [id number] 1 Buddy Yusuf [id number] 05/02/[address] [facility] (MEDICAID HMO) [id number] Mariel Gilbert [id number] Notes Date Note Type Note Provider Name and Address Organization Details Recorded Time 01/17/2025 text/html Patient presents for discussion of irregular bleeding and pelvic pain. She is currently taking minipill with regulation of her periods, however she does reports heavy bleeding and cramping during her periods still. Recent pelvic US was normal, no evidence of structural cause of heavy bleeding. Suspicious for endometriosis given heavy periods and cyclic pelvic pain. Overall happy with mini pill however would like to discuss options for painful periods. Desires 1 more . She also reports a history of low libido. She says this started prior to her pregnancies and has worsened over the years. She has been seen by endocrinology and PCP without help. Recent labwork was reviewed that shows total testosterone of 6, free T 0.4. Denies pain with intercourse, reports good relationship with her partner. CLAUDETTE SINGH MD [address], [place], [address], [facility] 01/17/2025 23:09:50 02/13/2025 text/html Annual GYNReport ed bypatient.Menstrual cycle:Normal menses Urinary symptoms:No hematuria; No incontinence Vulva:No genital lesion Vagina:Normal vaginal discharge Breast:No breast pain; No breast lump; No nipple discharge Current Contraception:Condo ms Sexual complaints:No sexual complaints; No pain during intercourse; Normal libido Menopausal Symptoms:No menopausal symptoms; Normal vaginal lubrication Psychological symptoms:No depression; No anxiety; No PMDD Preventive measures:Encourage self breast examination; Encourage regular exercise; Encourage no tobacco use; Encourage regular mammograms starting age 40Notes:29yo wwelast pap 2020 - nilmno h/o abnormal paps per pton orilissa for suspected endometriosis, symptoms have significantly improved since starting KATLYN Nation [address], [place], [address], [facility] 02/14/2025 11:42:01 06/01/2025 text/html pt had amenorrhe a +UPThcg did not double, now on US GS 7 weeks no poleno cramping or bleeding Maria T Carlton CNM [address], [place], [address], [facility] 06/01/2025 13:02:36 OBGyn Episode Ob Episode Information Episode Created Date Number of Fetuses Patient Bloodtype Patient rh Status Prepregnancy Weight lbs Domestic Partner Domestic Partner Phone Father Name Chief Projectionist Status 03/05/20 20 1 CLOSED Fetus Data First Name Last Name Admitted to NICU Weight (g) Sex Living Outcome Pediatric Complications Fetus ID Race Codes Race Delivery Type 4053.75 1704 M Full Term 343 Vaginal Delivery Isidro Calculation Initial Isidro Date Initial Exam Date Initial Exam Provider Initial Ultrasound Date Last Menstrual Period Date Ultra Sound Weeks Gestation 0 Eighteen To Twenty Week Isidro Update Ultra Sound Date Fundal Height At Umbil Quickening Date Ultra Sound Latest Weeks Gestation Final Isidro Confirmed By Final Isidro Confirmed Date Final Isidro Date Ultra Sound Latest Days Gestation 0 0 Menstrual History Last Menstrual Date Menses Monthly On Bcp Conception Prior Menses Frequency Hcg Plus Date Menarche Onset Age Delivery Information Delivery Date Delivery Type Labor Anesthesia Weeks Gestation Incision Type Labor Labor Length Hrs Delivered By Post Complications Tubal Sterilization Discharge Date Comments 0 39 GDM Discharge Information Feeding Method Contraceptive Method Maternal HG B and HCT Levels Ob Episode Information Episode Created Date Number of Fetuses Patient Bloodtype Patient rh Status Prepregnancy Weight lbs Domestic Partner Domestic Partner Phone Father Name Chief Projectionist Status 03/05/20 20 1 CLOSED Fetus Data First Name Last Name Admitted to NICU Weight (g) Sex Living Outcome Pediatric Complications Fetus ID Race Codes Race Delivery Type , Spontane ous 345 Isidro Calculation Initial Isidro Date Initial Exam Date Initial Exam Provider Initial Ultrasound Date Last Menstrual Period Date Ultra Sound Weeks Gestation 0 Eighteen To Twenty Week Isidro Update Ultra Sound Date Fundal Height At Umbil Quickening Date Ultra Sound Latest Weeks Gestation Final Isidro Confirmed By Final Isidro Confirmed Date Final Isidro Date Ultra Sound Latest Days Gestation 0 0 Menstrual History Last Menstrual Date Menses Monthly On Bcp Conception Prior Menses Frequency Hcg Plus Date Menarche Onset Age Delivery Information Delivery Date Delivery Type Labor Anesthesia Weeks Gestation Incision Type Labor Labor Length Hrs Delivered By Post Complications Tubal Sterilization Discharge Date Comments 3 W/ D&C Discharge Information Feeding Method Contraceptive Method Maternal HG B and HCT Levels Ob Episode Information Episode Created Date Number of Fetuses Patient Bloodtype Patient rh Status Prepregnancy Weight lbs Domestic Partner Domestic Partner Phone Father Name Chief Projectionist Status 03/05/20 20 1 CLOSED Fetus Data First Name Last Name Admitted to NICU Weight (g) Sex Living Outcome Pediatric Complications Fetus ID Race Codes Race Delivery Type , Spontane ous 347 Isidro Calculation Initial Isidro Date Initial Exam Date Initial Exam Provider Initial Ultrasound Date Last Menstrual Period Date Ultra Sound Weeks Gestation 0 Eighteen To Twenty Week Isidro Update Ultra Sound Date Fundal Height At Umbil Quickening Date Ultra Sound Latest Weeks Gestation Final Isidro Confirmed By Final Isidro Confirmed Date Final Isidro Date Ultra Sound Latest Days Gestation 0 0 Menstrual History Last Menstrual Date Menses Monthly On Bcp Conception Prior Menses Frequency Hcg Plus Date Menarche Onset Age Delivery Information Delivery Date Delivery Type Labor Anesthesia Weeks Gestation Incision Type Labor Labor Length Hrs Delivered By Post Complications Tubal Sterilization Discharge Date Comments 9 Discharge Information Feeding Method Contraceptive Method Maternal HG B and HCT Levels Ob Episode Information Episode Created Date Number of Fetuses Patient Bloodtype Patient rh Status Prepregnancy Weight lbs Domestic Partner Domestic Partner Phone Father Name Chief Projectionist Status 03/05/20 20 1 CLOSED Fetus Data First Name Last Name Admitted to NICU Weight (g) Sex Living Outcome Pediatric Complications Fetus ID Race Codes Race Delivery Type 2778.25 1 F Full Term 342 Vaginal Delivery Isidro Calculation Initial Isidro Date Initial Exam Date Initial Exam Provider Initial Ultrasound Date Last Menstrual Period Date Ultra Sound Weeks Gestation 0 Eighteen To Twenty Week Isidro Update Ultra Sound Date Fundal Height At Umbil Quickening Date Ultra Sound Latest Weeks Gestation Final Isidro Confirmed By Final Isidro Confirmed Date Final Isidro Date Ultra Sound Latest Days Gestation 0 0 Menstrual History Last Menstrual Date Menses Monthly On Bcp Conception Prior Menses Frequency Hcg Plus Date Menarche Onset Age Delivery Information Delivery Date Delivery Type Labor Anesthesia Weeks Gestation Incision Type Labor Labor Length Hrs Delivered By Post Complications Tubal Sterilization Discharge Date Comments 5 39.1 Discharge Information Feeding Method Contraceptive Method Maternal HG B and HCT Levels Ob Episode Information Episode Created Date Number of Fetuses Patient Bloodtype Patient rh Status Prepregnancy Weight lbs Domestic Partner Domestic Partner Phone Father Name Chief Projectionist Status 03/05/20 20 1 CLOSED Fetus Data First Name Last Name Admitted to NICU Weight (g) Sex Living Outcome Pediatric Complications Fetus ID Race Codes Race Delivery Type 346 Isidro Calculation Initial Isidro Date Initial Exam Date Initial Exam Provider Initial Ultrasound Date Last Menstrual Period Date Ultra Sound Weeks Gestation 0 Eighteen To Twenty Week Isidro Update Ultra Sound Date Fundal Height At Umbil Quickening Date Ultra Sound Latest Weeks Gestation Final Isidro Confirmed By Final Isidro Confirmed Date Final Isidro Date Ultra Sound Latest Days Gestation 0 0 Menstrual History Last Menstrual Date Menses Monthly On Bcp Conception Prior Menses Frequency Hcg Plus Date Menarche Onset Age Delivery Information Delivery Date Delivery Type Labor Anesthesia Weeks Gestation Incision Type Labor Labor Length Hrs Delivered By Post Complications Tubal Sterilization Discharge Date Comments 8 Discharge Information Feeding Method Contraceptive Method Maternal HG B and HCT Levels Ob Episode Information Episode Created Date Number of Fetuses Patient Bloodtype Patient rh Status Prepregnancy Weight lbs Domestic Partner Domestic Partner Phone Father Name Chief Projectionist Status 02/02/20 23 1 A Positive 213 buddy Poirrty r CLOSED Fetus Data First Name Last Name Admitted to NICU Weight (g) Sex Living Outcome Pediatric Complications Fetus ID Race Codes Race Delivery Type 3486.98 85 M true Full Term ASSISTED DELIVERY, CPAPx2 min, 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 Zamora Appt: 06/22/23 u/s & NST [id number] rec: GDM: BS QID, NPH 6 units AM, 14 units HS, 4 units with lunch, and 2 units with dinner, weekly CDE check ins, BID kick counts 28wks, 32 week twice wkly NST, weekly BPP, serial growth u/s, 2 hr gtt 4wks PP, BF rec. Obesity: serial growth, testing.Hx shoulder dystocia: [facility] consult 36-37 wks repeat growth at 36 wks to discuss vaginal delivery safety.Subclinical hyperthyroid: repeat TSH 3r trimesterNeurology in April, consider daily magnesium supplement, PTL, pre-e precautionsPer pt: NST @ [facility] Tuesdays NST/OB [place] [facility] [place] Fr[place] Problem Name Start Date End Date Resolution Snomed Code Not e Cholestasis [id number] 07/07 - P er Scarlett with [facility] - she spoke with Dr. Dangelo and to cont ursodiol and anticipate/assume cholestasis based on presentation. Rpt labs next week before [facility] appt on 07/21. Might recommend 37-38wk del Gestational diabetes mellitus 02/18/2023 [id number] h/o [id number]. [facility] BS QID, serial growth, testing Gestational diabetes mellitus class A2 [id number] 5u NPH AM, 5u Lispro Lunch, 15u NPH @ HS - [facility] 03/31 [facility] Isidro Calculation Initial Isidro Date Initial Exam Date Initial Exam Provider Initial Ultrasound Date Last Menstrual Period Date Ultra Sound Weeks Gestation 08/15/2023 01/05/2023 01/05/2023 11/07/2022 8 Eighteen To Twenty Week Isidro Update Ultra Sound Date Fundal Height At Umbil Quickening Date Ultra Sound Latest Weeks Gestation Final Isidro Confirmed By Final Isidro Confirmed Date Final Isidro Date Ultra Sound Latest Days Gestation 02/02/20 23 12 [email or web address] 02/01/2023 08/14/20 23 4 Pre- Flowsheet Flowsheet Date 02/01/2023 Guerra Score Blood Edema Fundus Height Fundus Units Glucose Ketones Leukocytes Nitrite Labor Signs Protein Cervic Dilation Cervic Effacement Cervic Station neg none none trace Type Weight in lbs Pre/Post Dialysis Refused Weight 213.576690002561 BP Diastolic BP Location Tested BP Systolic BP Type 83 131 Fetus Heart Rate Present Fetus Movement A No Comments Here to start care. history of and shoulder dystocia with 2nd pregnacy. That was also complicated by GDM. We have discussed testing for GDM. We have also discussed shoulder dystocia and risks with this . Will monitor closely and discuss throughout so that patient can make an informed decision on vaginal vs .Persistent nausea. Will try promethazine. Headaches that are not always improved with Tylenol and rest. Does sound sinus related. Will try benadryl at night or claritin during the day. If no relief, she will let us know. Could consider fioricet and neuro consult. Flowsheet Date 02/18/2023 Guerra Score Blood Edema Fundus Height Fundus Units Glucose Ketones Leukocytes Nitrite Labor Signs Protein Cervic Dilation Cervic Effacement Cervic Station Type Weight in lbs Pre/Post Dialysis Refused BP Diastolic BP Location Tested BP Systolic BP Type Fetus Heart Rate Present Fetus Movement Comments Flowsheet Date 03/04/2023 Guerra Score Blood Edema Fundus Height Fundus Units Glucose Ketones Leukocytes Nitrite Labor Signs Protein Cervic Dilation Cervic Effacement Cervic Station neg none none trace Type Weight in lbs Pre/Post Dialysis Refused Weight 210.824462660888 BP Diastolic BP Location Tested BP Systolic BP Type 70 120 Fetus Heart Rate Present A 147 Fetus Movement A Yes Comments Doing well. Does still have nausea and vomiting but zofran does help. Blood sugars improving with increased insulin. She has a dietary exp for the 1 hour elevation. Will plan to evaluate weekly. Pt will call ob each week for review. Flowsheet Date 03/09/2023 Guerra Score Blood Edema Fundus Height Fundus Units Glucose Ketones Leukocytes Nitrite Labor Signs Protein Cervic Dilation Cervic Effacement Cervic Station Type Weight in lbs Pre/Post Dialysis Refused BP Diastolic BP Location Tested BP Systolic BP Type Fetus Heart Rate Present Fetus Movement Comments Pt here for u/s r/t spotting . No signs of hemorrhage on u/s and CL WNL. Urine dip showed +1 leuks, +2 ketones, tr blood. Pt has some left sided cramping occasionally towards back side, mainly has abdominal cramping. Reviewed with KP and to send urine for UA/UC and can send abx. Reviewed with pt and pt declines abx for right now and will just wait for UC to come back. Given bleeding precautions and informed u/s appeared normal, but to call with changes. Pt verbalized understanding. ALEXEY jung Flowsheet Date 03/24/2023 Guerra Score Blood Edema Fundus Height Fundus Units Glucose Ketones Leukocytes Nitrite Labor Signs Protein Cervic Dilation Cervic Effacement Cervic Station Type Weight in lbs Pre/Post Dialysis Refused BP Diastolic BP Location Tested BP Systolic BP Type Fetus Heart Rate Present Fetus Movement Comments Flowsheet Date 04/02/2023 Guerra Score Blood Edema Fundus Height Fundus Units Glucose Ketones Leukocytes Nitrite Labor Signs Protein Cervic Dilation Cervic Effacement Cervic Station neg none none trace Type Weight in lbs Pre/Post Dialysis Refused Weight 207.926480845060 BP Diastolic BP Location Tested BP Systolic BP Type 76 117 Fetus Heart Rate Present A 147 Fetus Movement A Yes Comments patient is having some bleed ing, spotting, nausea and vomiting. discussed spotting with MFM and had us last week, only occ with wiping, precautions reviewed baby in the 90%, hx shoulder dystocia with son having a broken clavicle. discussed option of . disc risk of dystocia, cerebral palsy, . will continue to monitor growth and see MFM, labs and urine culture today per MFM. MFM managing blood sugars Flowsheet Date 04/28/2023 Guerra Score Blood Edema Fundus Height Fundus Units Glucose Ketones Leukocytes Nitrite Labor Signs Protein Cervic Dilation Cervic Effacement Cervic Station neg none none trace Type Weight in lbs Pre/Post Dialysis Refused Weight 209.075441910843 BP Diastolic BP Location Tested BP Systolic BP Type 70 127 Fetus Heart Rate Present A 150 Fetus Movement A Yes Comments patient states that having s ome cramping and nausea. M mentioned breech, lga pt still does not want c/s but will talk more with them as continues. blood sugar monitored by [facility] precautions, reviewed 28 week f/u Flowsheet Date 05/26/2023 Guerra Score Blood Edema Fundus Height Fundus Units Glucose Ketones Leukocytes Nitrite Labor Signs Protein Cervic Dilation Cervic Effacement Cervic Station neg none none trace Type Weight in lbs Pre/Post Dialysis Refused Weight 212.05437154688 BP Diastolic BP Location Tested BP Systolic BP Type 75 138 Fetus Heart Rate Present A 146 Present Fetus Movement A Yes Comments patient is having excessive thirst, cramping, pressure, numbness in legs, back pain, discharge, nausea and vomiting. reviewed precautions, EFW per pt at [facility] 50%, have been changing her insulin, her fastings have been cont to be abnormal. other 28 week labs drawn today plan 2 week visit, testing starting at 32 weeks Flowsheet Date 06/09/2023 Guerra Score Blood Edema Fundus Height Fundus Units Glucose Ketones Leukocytes Nitrite Labor Signs Protein Cervic Dilation Cervic Effacement Cervic Station neg trace 32 none trace Type Weight in lbs Pre/Post Dialysis Refused Weight 212.18119496629 BP Diastolic BP Location Tested BP Systolic BP Type 74 110 Fetus Heart Rate Present A 140 Fetus Movement A Yes Comments patient is having fatigue, t iredness, discharge, swelling, nausea and vomiting. check vitd, talking to [facility] about sugars, dropping in the middle of the night, doing kick counts, next visit call for preadmission, precaution reviewed Flowsheet Date 06/21/2023 Guerra Score Blood Edema Fundus Height Fundus Units Glucose Ketones Leukocytes Nitrite Labor Signs Protein Cervic Dilation Cervic Effacement Cervic Station Type Weight in lbs Pre/Post Dialysis Refused BP Diastolic BP Location Tested BP Systolic BP Type Fetus Heart Rate Present Fetus Movement Comments Flowsheet Date 06/25/2023 Guerra Score Blood Edema Fundus Height Fundus Units Glucose Ketones Leukocytes Nitrite Labor Signs Protein Cervic Dilation Cervic Effacement Cervic Station Type Weight in lbs Pre/Post Dialysis Refused BP Diastolic BP Location Tested BP Systolic BP Type Fetus Heart Rate Present Fetus Movement Comments Flowsheet Date 06/25/2023 Guerra Score Blood Edema Fundus Height Fundus Units Glucose Ketones Leukocytes Nitrite Labor Signs Protein Cervic Dilation Cervic Effacement Cervic Station neg trace none trace Type Weight in lbs Pre/Post Dialysis Refused Weight 214.543195118849 BP Diastolic BP Location Tested BP Systolic BP Type 78 126 Fetus Heart Rate Present Fetus Movement A Yes Comments patient is having stomach pa in, back pain, cramping, discharge, swelling, nausea, vomiting, and itching. growth increased, consult at [facility], will check bile acids and start uradiol, precautions reviewed NST R Flowsheet Date 07/02/2023 Guerra Score Blood Edema Fundus Height Fundus Units Glucose Ketones Leukocytes Nitrite Labor Signs Protein Cervic Dilation Cervic Effacement Cervic Station Type Weight in lbs Pre/Post Dialysis Refused BP Diastolic BP Location Tested BP Systolic BP Type Fetus Heart Rate Present Fetus Movement Comments Flowsheet Date 07/02/2023 Guerra Score Blood Edema Fundus Height Fundus Units Glucose Ketones Leukocytes Nitrite Labor Signs Protein Cervic Dilation Cervic Effacement Cervic Station neg none none trace Type Weight in lbs Pre/Post Dialysis Refused Weight 215.799973138706 BP Diastolic BP Location Tested BP Systolic BP Type 84 124 Fetus Heart Rate Present Fetus Movement A Yes Comments patient is having itching, l eaking or discharge, cramping and nausea. bile acids wnl, ursadiol was working, came off and now itching is back all over iban back of neck and palms of hands, restart ursadiol, redraw bile acids, consider 37 week delivery, [facility] managing blood sugar, has growth us at the end of the month Flowsheet Date 07/09/2023 Guerra Score Blood Edema Fundus Height Fundus Units Glucose Ketones Leukocytes Nitrite Labor Signs Protein Cervic Dilation Cervic Effacement Cervic Station Type Weight in lbs Pre/Post Dialysis Refused BP Diastolic BP Location Tested BP Systolic BP Type Fetus Heart Rate Present Fetus Movement Comments Flowsheet Date 07/09/2023 Guerra Score Blood Edema Fundus Height Fundus Units Glucose Ketones Leukocytes Nitrite Labor Signs Protein Cervic Dilation Cervic Effacement Cervic Station neg trace none trace Type Weight in lbs Pre/Post Dialysis Refused Weight 215.922117817117 BP Diastolic BP Location Tested BP Systolic BP Type 86 132 Fetus Heart Rate Present Fetus Movement A Yes Comments patient is having pain, cont ractions, discharge, swelling, nausea and vomiting. saw mfm very tired, everything hurts, gallbladder rea.nursadiol is helping with pruritus, will continue, nst R, precautions reviewed catracho preadmit f/u one weekmeetin with mfm dr about delivery on 07/21 Flowsheet Date 07/16/2023 Guerra Score Blood Edema Fundus Height Fundus Units Glucose Ketones Leukocytes Nitrite Labor Signs Protein Cervic Dilation Cervic Effacement Cervic Station Type Weight in lbs Pre/Post Dialysis Refused BP Diastolic BP Location Tested BP Systolic BP Type Fetus Heart Rate Present Fetus Movement Comments Flowsheet Date 07/16/2023 Guerra Score Blood Edema Fundus Height Fundus Units Glucose Ketones Leukocytes Nitrite Labor Signs Protein Cervic Dilation Cervic Effacement Cervic Station neg trace none trace Type Weight in lbs Pre/Post Dialysis Refused Weight 217.649035340185 BP Diastolic BP Location Tested BP Systolic BP Type 76 122 Fetus Heart Rate Present Fetus Movement A Decreased Comments patient is having contractio ns, pressure, swelling, and nausea. NST NR, bpp planned but pt started leaking fluid, will send to ld for rule out rupture discussed with dr. valdez plan vaginal delivery Flowsheet Date 07/16/2023 Guerra Score Blood Edema Fundus Height Fundus Units Glucose Ketones Leukocytes Nitrite Labor Signs Protein Cervic Dilation Cervic Effacement Cervic Station Type Weight in lbs Pre/Post Dialysis Refused BP Diastolic BP Location Tested BP Systolic BP Type Fetus Heart Rate Present Fetus Movement Comments Flowsheet Date 07/23/2023 Guerra Score Blood Edema Fundus Height Fundus Units Glucose Ketones Leukocytes Nitrite Labor Signs Protein Cervic Dilation Cervic Effacement Cervic Station Type Weight in lbs Pre/Post Dialysis Refused BP Diastolic BP Location Tested BP Systolic BP Type Fetus Heart Rate Present Fetus Movement Comments Flowsheet Date 07/23/2023 Guerra Score Blood Edema Fundus Height Fundus Units Glucose Ketones Leukocytes Nitrite Labor Signs Protein Cervic Dilation Cervic Effacement Cervic Station neg trace none trace 1cm 50% -3 Type Weight in lbs Pre/Post Dialysis Refused Weight 218.519303446519 BP Diastolic BP Location Tested BP Systolic BP Type 76 135 Fetus Heart Rate Present Fetus Movement A Yes Comments patient states that having s ome pressure, discharge, swelling, nausea, vomiting and heartburn. NST R per MFM ok for vaginal delivery at 37 weeks IOL tonight, cytotec x 2, reviewed precautions and education moss Menstrual History Last Menstrual Date Menses Monthly On Bcp Conception Prior Menses Frequency Hcg Plus Date Menarche Onset Age 1211/07/2022 Genetic Screening And Infection History Question Response Note Mental Retardation/Autism false Patient's Age Will Be 35 Yea rs Or Older At Estimated Date of Delivery false Thalassemia (Polish, Malagasy, Mediterranean, Or Background): MCV < 80 false Neural Tube Defect (Meningom yelocele, Spina Bifida, Or Anencephaly) false Congenital Heart Defect false Down Syndrome false Driss-Sachs (eg, Shinto, Cajun, Sinhala-[place]) f alse Mariluz Disease false Sickle Cell Disease Or Trait () false Hemophilia Or Other Blood Disorders false Muscular Dystrophy false Cystic Fibrosis false Gunnison's Chorea false Intellectual Disability/Autism false If Yes, Was Person Tested For Fragile X? false Other Inherited Genetic Or Chromosomal Disorder false Maternal Metabolic Disorder (eg, Type 1 Diabetes, PKU) false Patient Or Baby's Father Had A Child With Defects Not Listed Above false Recurrent Loss, Or A Stillbirth false Medications (including Suppl ements, Vitamins, Herbs, OTC Drugs), Illicit/Recreational Drugs, Alcohol true Zofran for nausea If Yes, Agent(s) And Strength/Dosage false Any Other Genetic History false Live With Someone With TB Or Exposed To TB false Patient Or Partner Has History Of Genital Herpes false Rash Or Viral Illness Since Last Menstrual Perio d false History Of STD, Gonorrhea, Chlamydia, HPV, Syphi lis true Chlamydia many years ago Other Infection History false History of HIV false History of Hepatitis false Prior GBS-infected child false Hemoglobinopathy Or Carrier false Other Structural Defect false Recent Travel History Outside of Country false Delivery Information Delivery Date Delivery Type Labor Anesthesia Weeks Gestation Incision Type Labor Labor Length Hrs Delivered By Post Complications Tubal Sterilization Discharge Date Comments 3 Induce d Regional-Ep idural 37.1 false Venkat Valdez MD Cholestas is, Gestation al diabetes mellitus class A2, prolonged ROM, arrest of descent, maternal exhaustio n, Discharge Information Feeding Method Contraceptive Method Maternal HG B and HCT Levels
--- OUTSIDE RECORDS SUMMARY | 2025-06-06 19:48 | XMS_ITS | Continuity of Care Document ---
Author Organization [facility] Address [address] [facility] [address] [place] [address] Phone Care Team Providers Care Aircraft Systems Repairer Name Role Phone Navas OD, Riley Unavailable Unavailable Advance Directives Directive Yes / No Effective Date File Name No Information Encounters Encounter Description Practice Location Reason(s) For Visit Diagnoses Date Provider Providers Copied on Encounter [facility], [address], [place], [place], [id number], [place] tel:[phone] [facility] No Information 1200 6 Navas OD Riley. [address] , [address], [place], [address], [place]. tel:[phone] Family History Family Member Type Diagnosis Age At Onset No Information Payers Payer name Insurance type Covered constitution party ID Authoriza tion(s) Medicaid [facility] [id number] Social History Type Description Quantity Date Captured Comments Sex Female Smoking Status No Information Chief Complaint And Reason For Visit No Information Reason For Referral Reason For Referral No Information History Of Present Illness Encounter Date Complaint History Of Prese nt Illness No Information Functional Status Date Functional Assessmen t No Information Instructions Date Instruction Additional Infor mation No Information Assessments Type Assessment Date No Information Patient Care Teams Name Effective Dates (start - stop) Status Members No Information
--- OUTSIDE RECORDS SUMMARY | 2025-06-06 19:48 | XMS_ITS | Clinical Summary ---
Author Organization [facility] Address [address] [address] Phone Care Team Providers Care Dairy Processing Equipment Operator Name Role Phone Mellissa Aguilar MD Unavailable [phone] Clarisse Luong DROP HAMMER PILE DRIVER OPERATOR, FREIGHT HANDLER Primary Care Provider + Pau Duvall APRN, FREIGHT HANDLER Unavailable Allergies Active Allergy Reactions Criticality Noted Date Comments Aspirin Other (see Comments) 07/10/2021 Prednisone Unknown 05/26/2023 Medications other by Other route. control Active amoxicillin-clav ulanate (AUGMENTIN) 875-125 MG Tablet take 1 tablet by mouth every 12 hours for 7 days 4 Active ondansetron (ZOFRAN-ODT) 4 MG TABLET DISPERSIBLE DISSOLVE 1 TABLET ON THE TONGUE EVERY 8 HOURS NEEDED FOR NAUSEA OR VOMITING 4 Active azithromycin (ZITHROMAX) 250 MG Tablet 4 Active Slynd 4 MG Tablet Take 1 Tablet by mouth daily. 4 Active omeprazole (PriLOSEC) 20 MG CAPSULE DELAYED RELEASE TAKE 1 CAPSULE BY MOUTH DAILY FOR 14 DAYS Active dicyclomine (BENTYL) 10 MG CapsuleIndicatio ns:RUQ pain Take 2 Capsules by mouth 4 times daily as needed for Other (PAIN). 90 Capsule 4 Active Active Problems No known active problems Immunizations Immunization Administration Dates Next Due DTAP VACCINE 03/24/2000, 6,03/13/1996,1995,1995 Hepatitis B Vaccine, Pediatric/adolescent 01/10/1996,1995,1995 Hib Vaccine,unspecified Formulation 01/1996,03/13/1996,01/10/1996,1994 Inactivated Polio Vaccine 03/24/2000 Influenza Vaccine 09/20/2012,09/09/2011 MMR Vaccine 03/24/2000,08/08/1996 OPV 10/24/1996, 6,01/10/1996,1994 TDAP Vaccine 11/13/2015 Family History Medical History Relation Name Comments Cancer Maternal Grandfather Crohn's Disease Maternal Grandfather Crohn's Disease Mother Ulcerative Colitis Mother Diabetes Paternal Grandmother Relation Name Status Comments Maternal Grandfather Mother Paternal Grandmother Social History Tobacco Use Types Packs/Day Years Used Date Smoking Tobacco: Former Cigarettes Smokeless Tobacco: Never Tobacco Cessation:Counseling Given: Not Answered Alcohol Use Standard Drinks/Week Comments Not Currently 0 (1 standard drink = 0.6 oz pur e alcohol) Sexually Active Control Partners Comments Yes Comments No Sex and Gender Information Value Date Recorded Sex Assigned at Not on file Legal Sex Female 5:40 PM CDT Gender Identity Not on file Sexual Orientation Not on file Last Filed Vital Signs Vital Sign Reading Time Taken Comments Blood Pressure 124/88 09/06/2024 9:44 AM CDT Pulse 92 09/06/2024 9:44 AM CDT Temperature 36.4 C (97.5 F) 09/06/2024 9:44 AM CDT Respiratory Rate 14 09/06/2024 9:44 AM CDT Oxygen Saturation 100% 09/06/2024 9:44 AM CDT Inhaled Oxygen Concentration - - Weight 87.2 kg (192 lb 3.2 oz) 09/06/2024 9:44 A M CDT Height 157.5 cm (5' 2) 09/06/2024 9:44 AM CDT Body Mass Index 35.15 09/06/2024 9:44 AM CDT Plan of Treatment Health Maintenance Due Date Last Done Comments Hepatitis C Virus (HCV) Screening 1995 Human Papillomavirus (HPV) Immunization (1 - 3-dose series) 2010 Pap Smear 2016 SARS-COV-2 Immunization (2023- season) 2024 Influenza Immunization (#1) 2025 09/20/2012, 1 DTaP/Tdap/Td Immunization (7 - Td or Tdap) 11/13/2025 11/13/2015, 03/24/2000, 10/24/1996, Additional history exists Respiratory Syncytial Virus (RSV) Immunization (Adult) (1 - 1-dose 75+ series) 2070 Hepatitis B Immunization Completed 996, 1995, 1995 Meningococcal Immunization (ACWY) Aged Out No longer eligible based on patient's age to complete this topic Pneumococcal Immunization Combined Aged Out No longer eligible based on patient's age to complete this topic Rotavirus Immunization Aged Out No lo nger eligible based on patient's age to complete this topic Insurance MEDICAID [place] Care Teams Dairy Processing Equipment Operator Relationship Specialty Start Date End Date Clarisse Luong APRN, FREIGHT HANDLER [address] [facility] [place] [address] PCP - General Advanced Practice Nurse 09/06/24 Mellissa Aguilar MD [address] [place] [address] Consulting Physician Gastroenterology 10/22/22 Pau Duvall APRN, FREIGHT HANDLER [address] [place] [address] Nurse Practitioner Advanced Practice Nurse 09/06/24
--- OUTSIDE RECORDS SUMMARY | 2025-06-06 19:48 | XMS_ITS | Encounter Summary ---
Author Organization [facility] Address [address] [place] [address] Phone Care Team Providers Care Decal Cutter Name Role Phone Mellissa Aguilar MD Unavailable Clarisse Luong APRN, TRAIN OPERATOR Primary Care Provider + Pau Duvall APRN, TRAIN OPERATOR Unavailable Encounter Details Date Type Department Care Team (Latest Contact Info) Description 09/06/2024 Transcribe Orders [facility] Call Center [address] [place] [address] Clarisse Luong APRN, TRAIN OPERATOR [address] [place] [address] RUQ pain (Primary Dx) Social History Tobacco Use Types Packs/Day Years Used Date Smoking Tobacco: Former Cigarettes Smokeless Tobacco: Never Alcohol Use Standard Drinks/Week Comments Not Currently 0 (1 standard drink = 0.6 oz pur e alcohol) Sexually Active Control Partners Comments Yes Comments No Sex and Gender Information Value Date Recorded Sex Assigned at Not on file Legal Sex Female 5:40 PM CDT Gender Identity Not on file Sexual Orientation Not on file documented as of this encounter Plan of Treatment Scheduled Orders Name Type Priority Associated Diagnoses Orde r Schedule UR TEST QUAL Lab Routine RUQ pain Expected: 09/06/2024, Expires: 09/06/2025 documented as of this encounter Visit Diagnoses Diagnosis RUQ pain- Primary Abdominal pain, right upper quadrant documented in this encounter Care Teams Decal Cutter Relationship Specialty Start Date End Date Clarisse Luong APRN, CNP [address] [facility] [address] [place], [place] [id number] PCP - General Advanced Practice Nurse 09/06/24 Mellissa Aguilar MD [address] [place] [address] Consulting Physician Gastroenterology 10/22/22 Pau Duvall APRN, CNP [address] [place] [address] Nurse Practitioner Advanced Practice Nurse 09/06/24 documented as of this encounter
--- OUTSIDE RECORDS SUMMARY | 2025-06-06 19:48 | XMS_ITS | Clinical Summary ---
Author Organization [facility] Address [address] [facility] [place] [address] Care Team Providers Care Marble Carver Name Role Phone Unavailable Primary Care Provider Unavailabl e Source Comments [facility],non-owned Affiliates and Associated Physician Practices is amultiple site organization consisting of ambulatory clinics and hospital sitesin [place], [place], [place] and [place]. This disclosure is being madepursuant to the Care Everywhere program and may not contain all information available regarding this patient. Last updated 18.[facility] Allergies Active Allergy Reactions Criticality Noted Date Comments Aspirin Other 07/10/2021 Prednisone Unknown 05/26/2023 Medications * This document contains information received from the source organization and may not represent a complete record from that organization. * Be aware that medications may not be up to date on this document. Alwaysverify current medications with the patient. levonorgestrel (KYLEENA) 19.5 MG IUD IUD Kyleena 17.5 mcg/24 hrs (5yrs) 19.5mg intrauterine device Take 1 device by intrauterine route. Active Vit-DSS-Fe Fum-FA ( vitamin with iron) tabletIndicatio ns: Take 1 (one) tablet by mouth once daily Reasons: Active Glucagon (Baqsimi One Pack) 3 MG/DOSE POWD [place] 3 mg into the nose as needed Use in case of emergency if unable to eat or drink to treat a low blood sugar 1 Each 1 03/31/20 23 Active Continuous Blood Gluc Sensor (Dexcom G7 Sensor) MISCIndications :Insulin controlled gestational diabetes mellitus (GDM) in second trimester ([facility]) Use 1 Each as directed Apply 1 sensor q10 days 3 Each 03/31/20 Active Continuous Blood Gluc Sensor (Dexcom G7 Sensor) MISCIndications :Insulin controlled gestational diabetes mellitus (GDM) in second trimester ([facility]) Use 1 Each as needed Apply 1 new sensor q10 days 3 Each 03/31/20 Active ondansetron (Zofran) 4 MG tablet Take 1 (one) tablet by mouth every 6 hours as needed for Nausea/Vomiting Active INSULIN SYRINGE/NEEDLE U-500 31G X 6MM 0.5 ML (BD Insulin Syringe U-500) 31G X 6MM 0.5 ML MISCIndications :Insulin controlled gestational diabetes mellitus (GDM) in second trimester ([facility]) Use 1 Each 4 times daily 100 Each 3 04/07/20 23 Active Insulin Pen Needle 32G X 4 MM MISCIndications :Insulin controlled gestational diabetes mellitus (GDM) in second trimester ([facility]) Use 1 Each 4 times daily 100 Each 4 04/07/20 23 Active pyridoxine (Vitamin B-6) 25 MG tabletIndicatio ns:Nausea and/or Vomiting in Take 1 (one) tablet by mouth 3 times daily Reasons: Nausea and Vomiting in 90 tablet 5 04/14/20 23 Active Additional Information Patient not taking.Reported on 04/28/2023 doxylamine (Unisom) 25 MG tabletIndicatio ns:Nausea and/or Vomiting in 1/2 tablet in the morning and 1/2 tablet at night as needed Reasons: Nausea and Vomiting in 30 tablet 1 04/14/20 23 Active insulin lispro (HumaLOG;ADMelo g) 100 UNIT/ML pen Inject 6 (six) Units to 30 (thirty) Units subcutaneously as directed Start with 4 units before lunch, 2 units before dinner. Increase as directed. 15 mL 04/28/20 23 Active Additional Information Patient taking differently:6-30 Units Subcutaneous DIRECTED,Start with 4 units before breakfast, 4 units before lunch, 2 units before dinner. Increase as directed., Informant: Patient, Reported on 05/26/2023 Insulin Pen Needle 32G X 4 MM MISCIndications :Insulin controlled gestational diabetes mellitus (GDM) during , antepartum (HCC) Use 1 Each 4 times daily 100 Each 5 04/28/20 Active insulin NPH penIndications: Gestational Diabetes Inject 8 (eight) Units to 20 (twenty) Units subcutaneously 2 times daily, before breakfast and supper Take 8 units in AM & 18 units @ HS. Reasons: Diabetes During Active omeprazole (PriLOSEC) 20 MG capsule Take 1 (one) capsule by mouth once daily 30 capsule 06/23/20 23 Active riboflavin 400 MG capsuleIndicati ons:Migraine Take 1 (one) capsule by mouth once daily Reasons: Migraine Headache 100 capsule 6 07/07/20 23 Active ursodiol (Actigall) 300 MG capsule Take 1 (one) capsule by mouth 2 times daily Active Active Problems Problem Noted Date Diagnosed Date Itching 06/29/2023 Overview (06/29/2023): Patient reported to primary OB, bile acid value: 7, LFTs wnl 8/10. Instructed by nursing to notify OB if itching worsens to have labs repeated. H/O shoulder dystocia in verna or , currently 04/07/2023 Overview (04/14/2023): Delivery records scanned into media, reviewed with Dr. Camargo 04/07/23, he recommends patient have repeat growth at 36 weeks to discuss at that time with MFM and at at time consult is available, to review counseling for delivery mode planning and recommendations. Insulin controlled gestation al diabetes mellitus (GDM) during , antepartum 03/31/2023 Family History Medical History Relation Name Comments Cancer - Breast Other Maternal great aunt Diabetes - Type 2 Paternal Grandmother Relation Name Status Comments Other Maternal great aunt Other Paternal Grandmother Social History Tobacco Use Types Packs/Day Years Used Date Smoking Tobacco: Former Cigarettes Q uit: 06/09/2019 Smokeless Tobacco: Former Tobacco Cessation:Counseling Given: Not Answered Alcohol Use Standard Drinks/Week Comments No 0 (1 standard drink = 0.6 oz pur e alcohol) Comments No Sex and Gender Information Value Date Recorded Sex Assigned at Not on file 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 Gender Identity Not on file Sexual Orientation Not on file Last Filed Vital Signs Vital Sign Reading Time Taken Comments Blood Pressure 130/86 07/21/2023 9:39 AM CDT Pulse 118 07/21/2023 9:39 AM CDT Temperature 36.5 C (97.7 F) 07/10/2021 10:41 AM CDT Respiratory Rate 18 08/06/2017 10:04 AM CDT Oxygen Saturation 98% 07/10/2021 10:41 AM CDT Inhaled Oxygen Concentration - - Weight 97.1 kg (214 lb) 07/21/2023 9:39 AM CDT Height 157.5 cm (5' 2) 07/21/2023 9:39 AM CDT Body Mass Index 39.14 07/21/2023 9:39 AM CDT Plan of Treatment Health Maintenance Due Date Last Done Comments HEPATITIS C SCREENING 07/02/2013 DTAP/TDAP/TD VACCINES (1 - Tdap) 2014 HEPATITIS B VACCINE (1 of 3 - 19+ 3-dose series) 2014 PAP SMEAR 2016 HPV VACCINE (1 - 3-dose SCDM series) 2022 COVID-19 VACCINE (1 - 2023-2 5 season) 2024 DEPRESSION SCREENING 11/22/2024 INFLUENZA VACCINE (#1) 2025 2, 09/09/2011 ZOSTER VACCINE (1 of 2) 2045 HIV SCREENING Completed 05/26/2023, 02/01/2023 HIB VACCINE Aged Out No longer eligi ble based on patient's age to complete this topic MENINGOCOCCAL (Group B) VACCINE SHARED DECISION-MAKING Aged Out No longer eligible based on patient's age to complete this topic MENINGOCOCCAL GROUPS A/C/Y/W VACCINE Aged Out No longer eligible b ased on patient's age to complete this topic PNEUMOCOCCAL VACCINE Aged Out No long er eligible based on patient's age to complete this topic Insurance [facility] SELF PAY NO INSURANCE Member Subscriber Plan / Payer (Ef fective for All Dates) Name:Matt Gilbert Marjorie Member ID:Not on file Relation to Subscriber:Not on file Name:MATT GILBERT Marjorie Subscriber ID:Not on file (Home) Address: [address] [place] [address] Payer ID:Not on file Group ID:Not on file Type:Self Pay Address: [place], [place] [facility]
[2025-06-06 22:35] LABS: Hematocrit 40.4 % (37.0-47.0); Hemoglobin 13.4 g/dL (12.0-15.0); Immature Granulocyte Percent A 0.2 % (0-0.5); Lymphocytes Absolute Auto 2.53 K/mm3 (0.9-3.2); Mean Corpuscular HGB Conc 33.2 g/dl (32-36); Mean Corpuscular Hemoglobin 29.4 pg (26-34); Mean Corpuscular Volume 88.6 fl (80-100); Nucleated Red Blood Cells Absolute Auto 0.000 K/mm3 (0.0-0.012); Nucleated Red Blood Cells Perc 0.0 % (0.0-0.2); Platelet Count Result 278 k/mm3 (150-375); Red Blood Count 4.56 M/mm3 (4.2-5.4); White Blood Count 8.8 K/mm3 (4.5-10.0)
[2025-06-06 22:46] LABS: INR 1.0; Prothrombin Time 13.1 Seconds (11.1-14.7)
[2025-06-06 22:47] LABS: Partial Thromboplastin Time 24.9 Seconds (22.3-36.8)
[2025-06-06 23:06] LABS: Alanine Aminotransferase 21 U/L (6-35); Albumin Level 4.3 g/dL (3.5-5.1); Alkaline Phosphatase 25 U/L (38-126); Anion Gap 7 mmol/L (4-12); Aspartate Amino Transferase 25 U/L (14-36); Bilirubin,Total 0.4 mg/dL (0.2-1.3); Blood Urea Nitrogen 11 mg/dL (7-17); Calcium 9.4 mg/dL (8.4-10.2); Carbon Dioxide 22 mmol/L (22-30); Chloride 106 mmol/L (98-107); Estimated CRCL calculation 101 ml/min; Estimated Glomerular Filt Rate > 60; Glucose 102 mg/dL (65-110); Potassium 3.6 mmol/L (3.4-5.0); Sodium 135 mmol/L (137-145); Total Protein 7.0 g/dL (6.3-8.2)
[2025-06-06 23:17] LABS: Beta HCG Quantitative 7425.50 mIU/ML
--- OUTSIDE RECORDS SUMMARY | 2025-06-06 23:31 | XMS_ITS | Encounter Summary ---
Author Organization [facility] Address [address] [place] [address] Phone Care Team Providers Care Automation Controls Specialist Name Role Phone Mellissa Aguilar MD Unavailable [phone] Clarisse Luong APRN, SAW GRINDER Primary Care Provider + Pau Duvall APRN, SAW GRINDER Unavailable Encounter Details Date Type Department Care Team (Latest Contact Info) Description 09/06/2024 Transcribe Orders [facility] Call Center [address] [place] [address] Clarisse Luong APRN, SAW GRINDER [address] [place] [address] RUQ pain (Primary Dx) Social [...] quadrant documented in this encounter Care Teams Automation Controls Specialist Relationship Specialty Start Date End Date Clarisse Luong APRN, CNP [address] [facility] [address] [place], [place] [id number] PCP - General Advanced Practice Nurse 09/06/24 Mellissa Aguilar MD [address] [place] [address] Consulting Physician Gastroenterology 10/22/22 Pau Duvall APRN, CNP [address] [place] [address] Nurse Practitioner Advanced Practice Nurse 09/06/24 documented as of this encounter
--- OUTSIDE RECORDS SUMMARY | 2025-06-06 23:31 | XMS_ITS | Continuity of Care Document ---
Author Organization [facility] Address [address] [facility] [address] [facility] [address] [place] [address] Phone Care Team Providers Care Farm Crew Member Name Role Phone Navas OD, Riley Unavailable Unavailable Advance Directives Directive Yes / No Effective Date File Name No Information Encounters Encounter Description Practice Location Reason(s) For Visit Diagnoses Date Provider Providers Copied on Encounter [facility], [address], [place], [place], [id number], [place] tel:[phone] [facility] No Information [address] 6 Navas OD [place]. [address], [place], [address], [place]. tel:[phone] Family History Family Member Type Diagnosis Age At Onset No Information Payers Payer name Insurance type Covered constitution party ID Authoriza tion(s) Medicaid [facility] [id number] Social History Type Description Quantity Date Captured [...]
--- OUTSIDE RECORDS SUMMARY | 2025-06-06 23:31 | XMS_ITS | Clinical Summary ---
Author Organization [facility] Address [address] [facility] [place] [address] Care Team Providers Care Barge Captain Name Role Phone Unavailable Primary Care Provider Unavailabl e Source Comments [facility],non-owned Affiliates and Associated Physician Practices is amultiple site organization consisting of ambulatory clinics and hospital sitesin [place], [place] and [place]. This disclosure is being madepursuant to the Care Everywhere program and may not contain all information available regarding this patient. Last updated 18.[facility] Allergies Active Allergy Reactions Criticality Noted Date [...] Glucagon (Baqsimi One Pack) 3 MG/DOSE POWD [place] 3 mg into the nose as needed Use in case of emergency if unable to eat or drink to treat a low blood sugar 1 Each 1 03/31/20 23 Active Continuous Blood Gluc Sensor (Dexcom G7 Sensor) MISCIndications :Insulin controlled gestational diabetes mellitus (GDM) in second trimester ([facility]) Use 1 Each as directed Apply 1 sensor q10 days 3 Each 03/31/20 Active Continuous Blood Gluc Sensor (Dexcom G7 Sensor) MISCIndications :Insulin controlled gestational diabetes mellitus (GDM) in second trimester ([facility]) Use 1 Each as needed Apply 1 new sensor q10 days 3 Each 03/31/20 Active ondansetron (Zofran) 4 MG tablet Take 1 (one) tablet by mouth every 6 hours as needed for Nausea/Vomiting Active INSULIN SYRINGE/NEEDLE U-500 31G X 6MM 0.5 ML (BD Insulin Syringe U-500) 31G X 6MM 0.5 ML MISCIndications :Insulin controlled gestational diabetes mellitus (GDM) in second trimester ([facility]) Use 1 Each 4 times daily 100 Each 3 04/07/20 23 Active Insulin Pen Needle 32G X 4 MM MISCIndications :Insulin controlled gestational diabetes mellitus (GDM) in second trimester ([facility]) Use 1 Each 4 times [...] on file 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
--- OUTSIDE RECORDS SUMMARY | 2025-06-06 23:31 | XMS_ITS | Clinical Summary ---
Author Organization [facility] Address [address] [address] Phone Care Team Providers Care Research And Development Tester Name Role Phone Mellissa Aguilar MD Unavailable [phone] Clarisse Luong QUARTZ ORIENTATOR, WEB SITE PROJECT MANAGER Primary Care Provider + Pau Duvall APRN, WEB SITE PROJECT MANAGER Unavailable Allergies Active Allergy Reactions Criticality Noted [...] age to complete this topic Insurance MEDICAID [place] Care Teams Research And Development Tester Relationship Specialty Start Date End Date Clarisse Luong APRN, WEB SITE PROJECT MANAGER [address] [facility] [facility] [address] [place] [address] PCP - General Advanced Practice Nurse 09/06/24 Mellissa Aguilar MD [address] [place] [address] Consulting Physician Gastroenterology 10/22/22 Pau Duvall APRN, WEB SITE PROJECT MANAGER [address] [place] [address] Nurse Practitioner Advanced Practice Nurse 09/06/24
[2025-06-06 23:32] VITALS: BP 111/63; PULSE 99; RESP 17; O2SAT 98
--- NOTE | 2025-06-06 23:58 | ED_ITS ---
HPI - General Chief complaint: Vaginal Bleeding <Thais Reina APRN - Last Filed: 06/07/25 03:08> Stated complaint: miscarriage, bleeding <Thais Reina APRN - Last Filed: 06/07/25 03:08> Time Seen by Provider: 06/06/25 21:31 <Thais Reina APRN - Last Filed: 06/07/25 03:08> History of Present Illness HPI Narrative: Patient is a 29-year-old female who presents to the ER with vaginal bleeding. She reports she is approximately 9 weeks , but an ultrasound approximately 6 days ago indicated she was having a miscarriage. Patient reports she has had vaginal bleeding intermittently over the past 5 days but earlier this morning she passed a golf ball-sized clot and has had heavy vaginal bleeding since. She also endorses significant back pain and reports ?I feel like I'm in labor. Patient denies any recent fevers, abnormal colored vaginal discharge, or issues with diarrhea/constipation. She does endorse some urgency and burning with urination. <Thais Reina APRN - Last Filed: 06/07/25 03:08> Related Data Allergies/Adverse reactions: Allergies Allergy/AdvReac Type Severity Reaction Status Date / Time aspirin Allergy Unknown Nausea and Verified 06/07/25 04:46 Vomiting prednisone Allergy Rash Verified 06/07/25 04:46 <Thais Reina APRN - Last Filed: 06/07/25 03:08> Review of Systems 2 Review of Systems: All systems reviewed & are unremarkable except as noted in HPI and below <Thais Reina APRN - Last Filed: 06/07/25 03:08> FOR[facility]LY [facility] Past Medical History Medical History: Medical History History of smoking Marijuana abuse Obesity (BMI 35.0-39.9 without comorbidity) Headache Allergies Gestational diabetes Gestational hypertension <Thais Reina APRN - Last Filed: 06/07/25 03:08> Surgical History Surgical History: Surgical History Hx laparoscopic cholecystectomy 09/11/24 Gilberto Guerrero MD History of tonsillectomy History of appendectomy <Thais Reina APRN - Last Filed: 06/07/25 03:08> Family History Family History: Family History Grandparent Diabetes mellitus Depression Cancer Hypertension Daughter No problems noted. Father Depression Mother Depression Diverticulitis Crohn disease <Thais Reina APRN - Last Filed: 06/07/25 03:08> Social History Social History: Social History Smoking status: Former smoker Tobacco type: cigarettes Second hand tobacco smoke exposure: No Smoking end date: 11/22/18 Alcohol intake: never Substance use: never Substance use type: marijuana Do You Feel Safe in your Home?: Yes Lack of Transportation: No Lack of Food: Never True Current Housing: I Have Housing Concerned About Future Housing: No Difficulty Paying Gas/Electric Bills: No Difficulty Paying for Meds: No Currently Unemployed: No Education: High School Diploma/GED Difficulty w/ Childcare or Family Care: No Gender identity (if verbalized by the patient): Female Spiritual care concerns: No <Thais Reina APRN - Last Filed: 06/07/25 03:08> Exam 2 Narrative: GENERAL: Well appearing, well-nourished, non-toxic, in no acute distress. HEAD: Normocephalic, atraumatic. NECK: Supple. No adenopathy, no masses. RESPIRATORY: Airway patent, respirations nonlabored. Clear to auscultation bilaterally, no rales, rhonchi, wheezing. CARDIOVASCULAR: Regular rate and rhythm without murmurs, rubs, or gallops. Peripheral pulses 2+ and equal bilaterally. ABDOMINAL: Soft, nontender, nondistended, no hepatosplenomegaly. Normoactive BS. MUSCULOSKELETAL: Moves all extremities. Strength/ROM intact without gross deformities. SKIN: Warm, dry, normal color. No rashes. NEURO: A&O X3. Speech clear. Cranial nerves II-XII intact. No ataxic movements. PSYCHIATRIC: Appropriate mood and affect. Normal interaction. : Pt has significant blood pooling in her vaginal canal. Possible clot noted on cervical os. <Thais Reina APRN - Last Filed: 06/07/25 03:08> Course RAIL CAR DRIVER/PA Physician Supervision This visit was performed by both a physician and an APC. I performed all aspects of the MDM as documented. <Duong Oconnor MD - Last Filed: 06/07/25 07:06> Vital Signs Vital signs: Vital Signs Temperature 36.6 C 06/06/25 19:46 Pulse Rate 96 06/06/25 19:46 Respiratory Rate 18 06/06/25 19:46 Blood Pressure 139/77 06/06/25 19:46 Pulse Oximetry 99 06/06/25 19:46 Temperature 36.6 C 06/07/25 03:26 Pulse Rate 81 06/07/25 06:21 Respiratory Rate 18 06/07/25 03:26 Blood Pressure 97/59 L 06/07/25 06:21 Pulse Oximetry 98 06/07/25 07:04 Oxygen Delivery Room Air 06/07/25 04:57 <Thais Reina APRN - Last Filed: 06/07/25 03:08> Vital Signs Temperature 36.6 C 06/06/25 19:46 Pulse Rate 96 06/06/25 19:46 Respiratory Rate 18 06/06/25 19:46 Blood Pressure 139/77 06/06/25 19:46 Pulse Oximetry 99 06/06/25 19:46 Temperature 36.6 C 06/07/25 03:26 Pulse Rate 81 06/07/25 06:21 Respiratory Rate 18 06/07/25 03:26 Blood Pressure 97/59 L 06/07/25 06:21 Pulse Oximetry 98 06/07/25 07:04 Oxygen Delivery Room Air 06/07/25 04:57 <Duong Oconnor MD - Last Filed: 06/07/25 07:06> MDM - OB/Uterine Contractions MDM Narrative Medical decision making narrative: Patient is a 29-year-old female who presents to the ER with vaginal bleeding. She reports she is approximately 9 weeks , but an ultrasound approximately 6 days ago indicated she was having a miscarriage. Patient reports she has had vaginal bleeding intermittently over the past 5 days but earlier this morning she passed a golf ball-sized air-filled clot and has had heavy vaginal bleeding since. She also endorses significant back pain and reports ?I feel like I'm in labor. Patient denies any recent fevers, abnormal colored vaginal discharge, or issues with diarrhea/constipation. She does endorse some urgency and burning with urination. Labs Ordered: CMP, CBC, beta hCG, PTT, INR, Rh immunoglobulin screen, UA Imaging Ordered: Pelvic ultrasound Medications Ordered: 1 L normal saline IV bolus, morphine 4 mg IV, Toradol 15mg IV, Macrobid PO Results: Pt's ultrasound indicates of unknown location. Complex, thickened endometrium, may represent hemorrhage and/or retained products. Recommend sonographic and beta hCG follow-up. Diagnosis: Miscarriage, irregular vaginal bleeding Consults: OBGYN (Dr. Gotti), 0140- Dr. Gotti recommends pt be admitted to the hospital and will have a D & C performed tomorrow morning. Patient Education/Shared MDM: Results of lab work and imaging shared with patient. Dr. Dumont recommendation was shared with patient. She and her partner were in agreement with plan. Patient will be started on IV fluids and should remain NPO. Plan for D&C in the morning. Pt will be admitted under Dr. Gotti's service. Prescription for Macrobid will be sent to patient's pharmacy to treat her UTI. <Thais Reina APRN - Last Filed: 06/07/25 03:08> Differential Diagnosis Differential diagnosis: Likely other (Miscarriage, irregular vaginal bleeding, urinary tract infection) <Thais Reina APRN - Last Filed: 06/07/25 03:08> Lab Data Attestation: I reviewed the patient's lab results. <Thais Reina APRN - Last Filed: 06/07/25 03:08> Result diagrams: 06/07/25 04:36 06/06/25 22:30 <Thais Reina APRN - Last Filed: 06/07/25 03:08> Labs: Lab Results 06/06/25 06/07/25 Range/Units 22:30 00:00 WBC 8.8 (4.5-10.0) K/mm3 RBC 4.56 (4.2-5.4) M/mm3 Hgb 13.4 (12.0-15.0) g/dL Hct 40.4 (37.0-47.0) % MCV 88.6 (80-100) fl MCH 29.4 (26-34) pg MCHC 33.2 (32-36) g/dl RDW 12.8 (11.5-14.5) % Plt Count 278 (150-375) k/mm3 MPV 9.5 (7.4-10.4) fl Immature Gran % (Auto) 0.2 (0-0.5) % Neut % (Auto) 64.3 (45.5-73.1) % Lymph % (Auto) 28.9 (18.3-44.2) % [place] % (Auto) 4.8 (2.6-8.5) % Eos % (Auto) 1.1 (0-4.4) % Baso % (Auto) 0.7 (0.2-1.2) % Lymph # (Auto) 2.53 (0.9-3.2) K/mm3 [place] # (Auto) 0.4 (0.1-0.6) K/mm3 Eos # (Auto) 0.1 (0-0.3) K/mm3 Baso # (Auto) 0.1 (0.0-0.1) K/mm3 Abs Immat Gran (auto) 0.02 (0.00-0.031) K/mm3 Absolute Neuts (auto) 5.6 (1.3-6.7) K/mm3 Absolute Nucleated RBC 0.000 (0.0-0.012) K/mm3 Nucleated RBC % 0.0 (0.0-0.2) % PT 13.1 (11.1-14.7) Seconds INR 1.0 APTT 24.9 (22.3-36.8) Seconds Sodium 135 L (137-145) mmol/L Potassium 3.6 (3.4-5.0) mmol/L Chloride 106 (98-107) mmol/L Carbon Dioxide 22 (22-30) mmol/L Anion Gap 7 (4-12) mmol/L BUN 11 D (7-17) mg/dL Creatinine 0.71 (0.7-1.0) mg/dL Estim Creat Clear Calc 101 ml/min Estimated GFR > 60 (59 - ) Glucose 102 (65-110) mg/dL Calcium 9.4 (8.4-10.2) mg/dL Total Bilirubin 0.4 (0.2-1.3) mg/dL AST 25 (14-36) U/L ALT 21 (6-35) U/L Alkaline Phosphatase 25 L (38-126) U/L Total Protein 7.0 (6.3-8.2) g/dL Albumin 4.3 (3.5-5.1) g/dL Beta HCG, Quant 7425.50 mIU/ML Urine Color Red H (Yellow) Urine Appearance Sl cloudy (Clear) Urine pH 6.0 (5.0-9.0) Ur Specific [place] 1.030 (1.001-1.035) Urine Protein 2+ H (Negative) mg/dL Urine Glucose (UA) Negative (Negative) mg/dL Urine Ketones Negative (Negative) mg/dL Ur Blood (Man) 3+ H (Negative) Urine Nitrate Negative (Negative) Urine Bilirubin Negative (Negative) Urine Urobilinogen 0.2 (<2.0) mg/dL Leukocyte Esterase Rfl 2+ H (Negative) IVONNE/UL Urine RBC >100 H (0-2) /hpf Urine WBC 21-50 (0-3) /hpf Ur Squamous Epith Cells Few (Few) /hpf Urine Bacteria 1+ H (None) /hpf Blood Type A Positive Antibody Screen Negative Screen TNP Baby's Blood Type Not Reportable Baby's EMERITA Not Reportable Doses of RhIg Required 0 <Thais Reina, ELECTRIC METER SETTER - Last Filed: 06/07/25 03:08> Lab Results 06/06/25 06/07/25 Range/Units 22:30 00:00 WBC 8.8 (4.5-10.0) K/mm3 RBC 4.56 (4.2-5.4) M/mm3 Hgb 13.4 (12.0-15.0) g/dL Hct 40.4 (37.0-47.0) % MCV 88.6 (80-100) fl MCH 29.4 (26-34) pg MCHC 33.2 (32-36) g/dl RDW 12.8 (11.5-14.5) % Plt Count 278 (150-375) k/mm3 MPV 9.5 (7.4-10.4) fl Immature Gran % (Auto) 0.2 (0-0.5) % Neut % (Auto) 64.3 (45.5-73.1) % Lymph % (Auto) 28.9 (18.3-44.2) % [place] % (Auto) 4.8 (2.6-8.5) % Eos % (Auto) 1.1 (0-4.4) % Baso % (Auto) 0.7 (0.2-1.2) % Lymph # (Auto) 2.53 (0.9-3.2) K/mm3 [place] # (Auto) 0.4 (0.1-0.6) K/mm3 Eos # (Auto) 0.1 (0-0.3) K/mm3 Baso # (Auto) 0.1 (0.0-0.1) K/mm3 Abs Immat Gran (auto) 0.02 (0.00-0.031) K/mm3 Absolute Neuts (auto) 5.6 (1.3-6.7) K/mm3 Absolute Nucleated RBC 0.000 (0.0-0.012) K/mm3 Nucleated RBC % 0.0 (0.0-0.2) % PT 13.1 (11.1-14.7) Seconds INR 1.0 APTT 24.9 (22.3-36.8) Seconds Sodium 135 L (137-145) mmol/L Potassium 3.6 (3.4-5.0) mmol/L Chloride 106 (98-107) mmol/L Carbon Dioxide 22 (22-30) mmol/L Anion Gap 7 (4-12) mmol/L BUN 11 D (7-17) mg/dL Creatinine 0.71 (0.7-1.0) mg/dL Estim Creat Clear Calc 101 ml/min Estimated GFR > 60 (59 - ) Glucose 102 (65-110) mg/dL Calcium 9.4 (8.4-10.2) mg/dL Total Bilirubin 0.4 (0.2-1.3) mg/dL AST 25 (14-36) U/L ALT 21 (6-35) U/L Alkaline Phosphatase 25 L (38-126) U/L Total Protein 7.0 (6.3-8.2) g/dL Albumin 4.3 (3.5-5.1) g/dL Beta HCG, Quant 7425.50 mIU/ML Urine Color Red H (Yellow) Urine Appearance Sl cloudy (Clear) Urine pH 6.0 (5.0-9.0) Ur Specific [place] 1.030 (1.001-1.035) Urine Protein 2+ H (Negative) mg/dL Urine Glucose (UA) Negative (Negative) mg/dL Urine Ketones Negative (Negative) mg/dL Ur Blood (Man) 3+ H (Negative) Urine Nitrate Negative (Negative) Urine Bilirubin Negative (Negative) Urine Urobilinogen 0.2 (<2.0) mg/dL Leukocyte Esterase Rfl 2+ H (Negative) IVONNE/UL Urine RBC >100 H (0-2) /hpf Urine WBC 21-50 (0-3) /hpf Ur Squamous Epith Cells Few (Few) /hpf Urine Bacteria 1+ H (None) /hpf Blood Type A Positive Antibody Screen Negative Screen TNP Baby's Blood Type Not Reportable Baby's EMERITA Not Reportable Doses of RhIg Required 0 <Duong Oconnor MD - Last Filed: 06/07/25 07:06> Imaging Data Attestation: I personally reviewed and interpreted this imaging study as follows: < Thais Reina APRN - Last Filed: 06/07/25 03:08> Radiologist's impression: Impressions Ultrasound 06/06/25 22:30 IMPRESSION: of unknown location. Complex, thickened endometrium, may represent hemorrhage and/or retained products. Recommend sonographic and beta hCG follow- up. <Thais Reina APRN - Last Filed: 06/07/25 03:08> Discharge Plan Discharge Clinical Impression: Incomplete , Vaginal bleeding <Thais Reina APRN - Last Filed: 06/07/25 03:08> Patient Disposition: Still a Patient <Thais Reina APRN - Last Filed: 06/07/25 03:08> Condition: Stable <Thais Reina APRN - Last Filed: 06/07/25 03:08>
[2025-06-07] VITALS (137 sets, daily range): BP systolic 97–124; BP diastolic 54–70; PULSE 62–115; RESP 14–18; TEMP 36.1–36.6; O2SAT 94–100; BMI 33.0
[2025-06-07] MEDS: SODIUM CHLORIDE 0.9% IV 1,000 ML 999 ML IV CONT (00:07)
[2025-06-07] MEDS: MORPHINE SULFATE (*CRX) 4 MG/ML INJ IV PUSH ×2 (00:07→04:57)
[2025-06-07 00:47] LABS: Add Urine Microscopic? YES; Appearance Urine Sl Cloudy (Clear); Leukocyte Esterase Ur 2+ LEU/UL (Negative); Specific Grav Ur 1.030 (1.001-1.035)
[2025-06-07 00:48] LABS: Glucose Urine UA Negative (Negative); Nitrate Urine Negative (Negative)
[2025-06-07] MEDS: KETOROLAC 15 MG/ML VIAL (*BKC) IV PUSH ×2 (01:27→10:21)
[2025-06-07] MEDS: NITROFURANTOIN MONOHYD MACROCR 100 MG CAP PO (01:57)
[2025-06-07] MEDS: SODIUM CHLORIDE 0.9% IV 1,000 ML 125 ML IV CONT ×2 (02:23→10:22)
--- NOTE | 2025-06-07 03:11 | PC.NURSE ---
Pt arrives to unit via stretcher from the ED with vaginal bleeding.
--- NOTE | 2025-06-07 03:39 | PC.NURSE ---
Called Dr. Gotti, orders verified to continue normal saline 125 ml per hour, morphine and toradol for pain, NPO diet, and repeat labs at 0400.
[2025-06-07 04:47] LABS: Hematocrit 35.6 % (37.0-47.0); Hemoglobin 11.9 g/dL (12.0-15.0)
--- NOTE | 2025-06-07 09:04 | PM.IMHP ---
H&P: HPI History of Present Illness Date/Time: 06/07/25 09:04 Chief Complaint: Miscarriage Narrative: 29-year-old multiparous female with incomplete miscarriage. We agreed to perform suction D&C. She understands the risks, benefits, and alternatives. She has completed informed consent process and is ready to proceed. The patient understands the details of the procedure. The procedure has been explained in detail. She understands the risks. She understands that injuries may occur that result in hospitalization, more surgery, and severe illness. She understands risk of hemorrhage and infection. She denies any chest pain or shortness of breath. She denies any nausea, vomiting, fever, chills. Review of Systems Review of Systems: All systems reviewed & are unremarkable except as noted in HPI and below Constitutional: Constitutional: Denies chills, Denies fatigue, Denies fever(s) and Denies weakness Eyes: Eyes: Denies blurry vision, Denies change in vision, Denies loss of peripheral vision, Denies loss of vision, Denies other visual disturbances and Denies eye pain ENT: Denies vertigo, Denies dizziness, Denies hearing loss, Denies mouth pain, Denies nasal obstruction, Denies neck mass and Denies neck pain Cardiovascular: Cardiovascular: Denies chest pain, Denies diaphoresis, Denies syncope, Denies leg edema and Denies dyspnea Respiratory: Respiratory: Denies chest congestion, Denies cough, Denies hemoptysis, Denies dyspnea and Denies wheezing Gastrointestinal: Gastrointestinal: Denies abdominal pain, Denies constipation, Denies diarrhea, Denies nausea and Denies vomiting Genitourinary: Genitourinary: Denies hematuria, Denies change in libido, Denies nocturia, Denies genital lesions, Denies flank pain and Denies urinary urgency Musculoskeletal: Musculoskeletal: Denies abnormal gait, Denies back pain, Denies myalgias, Denies arthralgias, Denies joint swelling, Denies muscle weakness and Denies neck pain Integumentary/Breasts: Skin/Breast: Denies swelling, Denies breast pain, Denies breast mass, Denies dry skin, Denies nipple discharge, Denies unusual bruising and Denies jaundice Neurologic: Denies Neuro-related abnormal movements, Denies Abnormal speech present, Denies abnormal gait, Denies behavioral changes, Denies confusion, Denies vertigo, Denies dizziness, Denies syncope, Denies loss of vision, Denies memory loss, Denies convulsions and Denies weakness Psychiatric: Psychiatric: Denies abnormal sleep pattern, Denies behavioral changes, Denies change in libido, Denies confusion, Denies depression, Denies anhedonia and Denies memory loss Endocrine: Endocrine: Reports no additional endocrine complaints, Denies change in libido and Denies fatigue Hematologic/Lymphatic: Hematologic/Lymphatic: Reports no additional hematologic/lymphatic complaints Allergic/Immunologic: Allergic/Immunologic: Reports no additional allergic/immunologic complaints and Denies wheezing PMFSH Past Medical History Medical History History of smoking Marijuana abuse Obesity (BMI 35.0-39.9 without comorbidity) Headache Allergies Gestational diabetes Gestational hypertension Surgical History Surgical History Hx laparoscopic cholecystectomy 09/11/24 Gilberto Guerrero MD History of tonsillectomy History of appendectomy Family History Family History Grandparent Diabetes mellitus Depression Cancer Hypertension Daughter No problems noted. Father Depression Mother Depression Diverticulitis Crohn disease Social History Social History Smoking status: Former smoker Tobacco type: cigarettes Second hand tobacco smoke exposure: No Smoking end date: 11/22/18 Alcohol intake: never Substance use: never Substance use type: marijuana Do You Feel Safe in your Home?: Yes Lack of Transportation: No Lack of Food: Never True Current Housing: I Have Housing Concerned About Future Housing: No Difficulty Paying Gas/Electric Bills: No Difficulty Paying for Meds: No Currently Unemployed: No Education: High School Diploma/GED Difficulty w/ Childcare or Family Care: No Gender identity (if verbalized by the patient): Female Spiritual care concerns: No Meds Home Medications and Allergies Home Medications ?Medication ?Instructions ?Recorded ?Confirmed ?Type nitrofurantoin 100 mg PO Q12H 5 days #10 caps 06/07/25 Rx monohydrate/macrocrystals 100 mg capsule (Macrobid) Allergies Allergy/AdvReac Type Severity Reaction Status Date / Time aspirin Allergy Unknown Nausea and Verified 06/07/25 04:46 Vomiting prednisone Allergy Rash Verified 06/07/25 04:46 Vital Signs Vital Signs - 24 hr 06/06/25 19:46 06/06/25 23:32 06/07/25 01:28 Temperature 97.8 F Pulse Rate 96 99 85 Respiratory Rate 18 17 16 Blood Pressure 139/77 111/63 104/62 Pulse Oximetry 99 98 97 Oxygen Delivery 06/07/25 03:25 06/07/25 03:26 06/07/25 03:26 Temperature 97.9 F 97.9 F Pulse Rate 80 80 Respiratory Rate 18 Blood Pressure 116/64 116/64 Pulse Oximetry 100 100 Oxygen Delivery 06/07/25 03:30 06/07/25 03:33 06/07/25 03:38 Temperature Pulse Rate Respiratory Rate Blood Pressure Pulse Oximetry 100 100 99 Oxygen Delivery 06/07/25 03:43 06/07/25 03:48 06/07/25 03:53 Temperature Pulse Rate Respiratory Rate Blood Pressure Pulse Oximetry 100 100 99 Oxygen Delivery 06/07/25 03:58 06/07/25 04:03 06/07/25 04:08 Temperature Pulse Rate Respiratory Rate Blood Pressure Pulse Oximetry 99 99 99 Oxygen Delivery 06/07/25 04:13 06/07/25 04:18 06/07/25 04:23 Temperature Pulse Rate Respiratory Rate Blood Pressure Pulse Oximetry 97 98 98 Oxygen Delivery 06/07/25 04:28 06/07/25 04:33 06/07/25 04:38 Temperature Pulse Rate Respiratory Rate Blood Pressure Pulse Oximetry 96 97 99 Oxygen Delivery 06/07/25 04:43 06/07/25 04:48 06/07/25 04:53 Temperature Pulse Rate Respiratory Rate Blood Pressure Pulse Oximetry 97 96 96 Oxygen Delivery 06/07/25 04:57 06/07/25 04:58 06/07/25 05:03 Temperature Pulse Rate Respiratory Rate Blood Pressure Pulse Oximetry 99 97 Oxygen Delivery Room Air 06/07/25 05:08 06/07/25 05:13 06/07/25 05:18 Temperature Pulse Rate Respiratory Rate Blood Pressure Pulse Oximetry 97 98 97 Oxygen Delivery 06/07/25 05:23 06/07/25 05:28 06/07/25 05:33 Temperature Pulse Rate Respiratory Rate Blood Pressure Pulse Oximetry 97 97 96 Oxygen Delivery 06/07/25 05:38 06/07/25 05:43 06/07/25 05:48 Temperature Pulse Rate Respiratory Rate Blood Pressure Pulse Oximetry 97 97 97 Oxygen Delivery 06/07/25 05:53 06/07/25 05:58 06/07/25 06:03 Temperature Pulse Rate Respiratory Rate Blood Pressure Pulse Oximetry 97 97 97 Oxygen Delivery 06/07/25 06:08 06/07/25 06:13 06/07/25 06:20 Temperature Pulse Rate Respiratory Rate Blood Pressure Pulse Oximetry 97 97 100 Oxygen Delivery 06/07/25 06:21 06/07/25 06:23 06/07/25 06:29 Temperature Pulse Rate 81 Respiratory Rate Blood Pressure 97/59 L Pulse Oximetry 100 100 Oxygen Delivery 06/07/25 06:34 06/07/25 06:39 06/07/25 06:44 Temperature Pulse Rate Respiratory Rate Blood Pressure Pulse Oximetry 99 99 98 Oxygen Delivery 06/07/25 06:49 06/07/25 06:54 06/07/25 06:59 Temperature Pulse Rate Respiratory Rate Blood Pressure Pulse Oximetry 98 97 97 Oxygen Delivery 06/07/25 07:04 06/07/25 07:09 06/07/25 07:14 Temperature Pulse Rate Respiratory Rate Blood Pressure Pulse Oximetry 98 98 97 Oxygen Delivery 06/07/25 07:19 06/07/25 07:24 06/07/25 07:29 Temperature Pulse Rate Respiratory Rate Blood Pressure Pulse Oximetry 97 97 98 Oxygen Delivery 06/07/25 07:34 06/07/25 07:38 06/07/25 07:38 Temperature Pulse Rate Respiratory Rate Blood Pressure Pulse Oximetry 97 97 99 Oxygen Delivery 06/07/25 07:43 06/07/25 07:48 06/07/25 07:53 Temperature Pulse Rate Respiratory Rate Blood Pressure Pulse Oximetry 100 100 100 Oxygen Delivery 06/07/25 07:58 06/07/25 08:03 06/07/25 08:08 Temperature Pulse Rate Respiratory Rate Blood Pressure Pulse Oximetry 99 100 98 Oxygen Delivery 06/07/25 08:13 06/07/25 08:18 06/07/25 08:23 Temperature Pulse Rate Respiratory Rate Blood Pressure Pulse Oximetry 97 97 97 Oxygen Delivery 06/07/25 08:28 06/07/25 08:33 06/07/25 08:35 Temperature Pulse Rate 96 Respiratory Rate Blood Pressure 101/54 L Pulse Oximetry 97 97 Oxygen Delivery 06/07/25 08:38 06/07/25 08:43 06/07/25 09:03 Temperature Pulse Rate Respiratory Rate Blood Pressure Pulse Oximetry 98 100 97 Oxygen Delivery Exam Const: General: cooperative, healthy appearing, comfortable and no acute distress Orientation/consciousness: oriented to person, oriented to place and oriented to time HENMT: Head: normal to inspection Ears: external ears normal Face/Nose/Sinus: Normal external nose present and normal facial exam Face and sinus: normal facial exam Eyes: General: appearance normal, both eyes and all related structures Neck: Neck: normal visual inspection, trachea midline and supple Resp: Auscultation: clear to auscultation bilaterally, no crackles, no rales, no rhonchi and no wheezes Cardio: Rate: regular rate Rhythm: regular rhythm Heart sounds: no click, no murmurs and no rubs GI: GI Palp: No abdominal tenderness, No Soft to palpation, No Tenderness to palpation present (GI) and No Palpable mass present Auscultation: normal bowel sounds Skin: General skin exam: normal color and no rashes or lesions noted Neuro: General: oriented to person, oriented to place and oriented to time Extrem: General: normal to inspection, no joint enlargement, no clubbing, cyanosis or edema, no pedal edema and no calf tenderness Psych: Appearance: grossly normal Mental Status: mental status grossly normal Speech and movement: Normal speech and movement present H&P: Results Labs Labs: Short CBC 06/06/25 06/07/25 Range/Units 22:30 04:36 WBC 8.8 (4.5-10.0) K/mm3 Hgb 13.4 11.9 L (12.0-15.0) g/dL Hct 40.4 35.6 L (37.0-47.0) % Plt Count 278 (150-375) k/mm3 BMP 06/06/25 22:30 Sodium 135 L Potassium 3.6 Chloride 106 Carbon Dioxide 22 BUN 11 D Creatinine 0.71 Glucose 102 Calcium 9.4 Liver Function 06/06/25 Range/Units 22:30 Total Bilirubin 0.4 (0.2-1.3) mg/dL AST 25 (14-36) U/L ALT 21 (6-35) U/L Alkaline Phosphatase 25 L (38-126) U/L Albumin 4.3 (3.5-5.1) g/dL Urine 06/07/25 Range/Units 00:00 Urine Color Red H (Yellow) Urine Appearance Sl cloudy (Clear) Urine pH 6.0 (5.0-9.0) Ur Specific [place] 1.030 (1.001-1.035) Urine Protein 2+ H (Negative) mg/dL Urine Glucose (UA) Negative (Negative) mg/dL Assessment and Plan Assessment and plan (1) Incomplete : Code(s): O03.4 - Incomplete spontaneous without complication Status: Acute Plan 29-year-old multiparous female with incomplete miscarriage. We agreed to perform suction D&C. She understands the risks, benefits, and alternatives. She has completed informed consent process and is ready to proceed.
--- NOTE | 2025-06-07 09:05 | WPDHPUPDATE1 ---
History and Physical Update Update Date/Time: 06/07/25 09:05 History and Physical has been reviewed, including an updated exam of the patient. There are NO changes in the patient's condition. Risks, benefits, and alternatives have been discussed and questions answered. Patient agrees to proceed with procedure.
--- NOTE | 2025-06-07 14:07 | WPDANESEPPF ---
Anes - Initial Pre Proc Eval Procedure: Operation Date: 06/07/25 15:30 Proposed Procedures p Suction Dilatation and Curettage - Venkat Gotti MD Date/Time: 06/07/25 14:07 Surgeon: Venkat Gotti MD Pre Op Diagnosis: Vaginal bleeding, Incomplete Patient Data Age: 29 Gender: F Height: 1.57 m Weight: 81.8 kg Last Vital Signs Temp 36.6 C 06/07/25 03:26 Pulse 86 06/07/25 13:44 Resp 18 06/07/25 03:26 BP 124/54 L 06/07/25 13:44 Pulse Ox 99 06/07/25 14:02 O2 Del Method Room Air 06/07/25 04:57 Allergies Allergy/AdvReac Type Severity Reaction Status Date / Time aspirin Allergy Unknown Nausea and Verified 06/07/25 04:46 Vomiting prednisone Allergy Rash Verified 06/07/25 04:46 Home Medications ?Medication ?Instructions ?Recorded ?Confirmed ?Type nitrofurantoin 100 mg PO Q12H 5 days #10 caps 06/07/25 Rx monohydrate/macrocrystals 100 mg capsule (Macrobid) Laboratory Tests 06/06/25 06/07/25 06/07/25 22:30 00:00 04:36 WBC 8.8 K/mm3 (4.5-10.0) RBC 4.56 M/mm3 (4.2-5.4) Hgb 13.4 g/dL 11.9 L g/dL (12.0-15.0) (12.0-15.0) Hct 40.4 % 35.6 L % (37.0-47.0) (37.0-47.0) MCV 88.6 fl (80-100) MCH 29.4 pg (26-34) MCHC 33.2 g/dl (32-36) RDW 12.8 % (11.5-14.5) Plt Count 278 k/mm3 (150-375) MPV 9.5 fl (7.4-10.4) Immature Gran % (Auto) 0.2 % (0-0.5) Neut % (Auto) 64.3 % (45.5-73.1) Lymph % (Auto) 28.9 % (18.3-44.2) [place] % (Auto) 4.8 % (2.6-8.5) Eos % (Auto) 1.1 % (0-4.4) Baso % (Auto) 0.7 % (0.2-1.2) Lymph # (Auto) 2.53 K/mm3 (0.9-3.2) [place] # (Auto) 0.4 K/mm3 (0.1-0.6) Eos # (Auto) 0.1 K/mm3 (0-0.3) Baso # (Auto) 0.1 K/mm3 (0.0-0.1) Abs Immat Gran (auto) 0.02 K/mm3 (0.00-0.031) Absolute Neuts (auto) 5.6 K/mm3 (1.3-6.7) Absolute Nucleated RBC 0.000 K/mm3 (0.0-0.012) Nucleated RBC % 0.0 % (0.0-0.2) PT 13.1 Seconds (11.1-14.7) INR 1.0 APTT 24.9 Seconds (22.3-36.8) Sodium 135 L mmol/L (137-145) Potassium 3.6 mmol/L (3.4-5.0) Chloride 106 mmol/L (98-107) Carbon Dioxide 22 mmol/L (22-30) Anion Gap 7 mmol/L (4-12) BUN 11 D mg/dL (7-17) Creatinine 0.71 mg/dL (0.7-1.0) Estim Creat Clear Calc 101 ml/min Estimated GFR > 60 (59 - ) Glucose 102 mg/dL (65-110) Calcium 9.4 mg/dL (8.4-10.2) Total Bilirubin 0.4 mg/dL (0.2-1.3) AST 25 U/L (14-36) ALT 21 U/L (6-35) Alkaline Phosphatase 25 L U/L (38-126) Total Protein 7.0 g/dL (6.3-8.2) Albumin 4.3 g/dL (3.5-5.1) Beta HCG, Quant 7425.50 mIU/ML Urine Color Red H (Yellow) Urine Appearance Sl cloudy (Clear) Urine pH 6.0 (5.0-9.0) Ur Specific [place] 1.030 (1.001-1.035) Urine Protein 2+ H mg/dL (Negative) Urine Glucose (UA) Negative mg/dL (Negative) Urine Ketones Negative mg/dL (Negative) Ur Blood (Man) 3+ H (Negative) Urine Nitrate Negative (Negative) Urine Bilirubin Negative (Negative) Urine Urobilinogen 0.2 mg/dL (<2.0) Leukocyte Esterase Rfl 2+ H IVONNE/UL (Negative) Urine RBC >100 H /hpf (0-2) Urine WBC 21-50 /hpf (0-3) Ur Squamous Epith Cells Few /hpf (Few) Urine Bacteria 1+ H /hpf (None) Blood Type A Positive Antibody Screen Negative Screen TNP Baby's Blood Type Not Reportable Baby's EMERITA Not Reportable Doses of RhIg Required 0 Patient hx anesthesia problems: none Family hx anesthesia problems: none Results Review: All pre-operative results and documents have been reviewed as part of the pre-operative evaluation. [facility] Past Medical History Medical History History of smoking Marijuana abuse Obesity (BMI 35.0-39.9 without comorbidity) Headache Allergies Gestational diabetes Gestational hypertension Surgical History Surgical History Hx laparoscopic cholecystectomy 09/11/24 Gilberto Guerrero MD History of tonsillectomy History of appendectomy Family History Family History Grandparent Diabetes mellitus Depression Cancer Hypertension Daughter No problems noted. Father Depression Mother Depression Diverticulitis Crohn disease Social History Social History Smoking status: Former smoker Tobacco type: cigarettes Second hand tobacco smoke exposure: No Smoking end date: 11/22/18 Alcohol intake: never Substance use: never Substance use type: marijuana Do You Feel Safe in your Home?: Yes Lack of Transportation: No Lack of Food: Never True Current Housing: I Have Housing Concerned About Future Housing: No Difficulty Paying Gas/Electric Bills: No Difficulty Paying for Meds: No Currently Unemployed: No Education: High School Diploma/GED Difficulty w/ Childcare or Family Care: No Gender identity (if verbalized by the patient): Female Spiritual care concerns: No Anes - Eval Final PreProcedure Day of Procedure 06/07/25 14:07 Patient weight: obese Heart: regular rate and rhythm Lungs: clear to auscultation Airway: Mallampati scale class II Neurological: alert and oriented Last oral intake: >/= 8 hours ASA classification: II Emergent: no Anesthetic plan: proceed Anesthesia type and monitoring: general GIVS and standard monitoring Results Review: All pre-operative results and documents have been reviewed as part of the pre-operative evaluation. Informed Consent: The patient's anesthetic plan and its attendant risks and benefits were discussed with the patient/family/POA. Questions were solicited and answers provided to the satisfaction of the patient/family/POA.
[2025-06-07] MEDS: LACTATED RINGERS 1,000 ML 30 ML IV CONT (14:15)
--- NOTE | 2025-06-07 14:50 | S_PTH ---
PATIENT: Mariel Yusuf LOC: [facility] U#:[id number] AGE/SX: 29/F ROOM: 116 RE06/07/[address]: Venkat Gotti MD : 1995 BED: 00 DIS: 06/07/2025 SPEC #: [id number] RECD: 06/08/25 08:03 STATUS: MODEJoan REQ #: [id number] MANISH: 06/07/25 14:[address]: Venkat Gotti DEPT: [facility] Surgical RECD BY: Danielle Lazar ENTERED: 06/08/25 08:04 SP TYPE: Surgical OTHR DR: Douglas Couch, DO Nasim Triplett MD RECRUITING AND SELECTION CONSULTANT PHYSICIAN Duong Oconnor MD Tissues: A - Products of Conception Procedures: Hematoxylin and Eosin Stain Gross and Microscopic Level 4
--- NOTE | 2025-06-07 15:00 | P.OP_ITS ---
Procedure Note - Detailed Date of Procedure 06/07/25 Pre-op Diagnosis Vaginal bleeding, Incomplete Post-op Diagnosis Same Procedure Performed Suction D&C Surgeon Venkat Gotti MD Anesthesia MAC Indications missed Findings normal-appearing vulva vagina and cervix to. Moderate amount of products conception within the uterus. 8 cm uterus Description of Procedure the patient was taken the operating room. She was prepped and draped in dorsal lithotomy position after induction of mac anesthesia. A speculum was placed in the vagina. Cervix grasped with tenaculum. The cervix was dilated to about 1 cm Using Leija dilators. A 8. Nauruan curved curette was used to perform suction D&C. The curette was introduced and vacuum was applied. The curette was removed over all surfaces of the intrauterine cavity multiple times. This was done until all the surfaces were clear and had the familiar grainy texture they can be felt through the instrument. A sharp curette was then used to c urettage all the surfaces. The suction cup was then reapplied 1 more time to remove any debris. The instruments were removed. The speculum and tenaculum were removed. The patient tolerated the procedure well. She was taken recovery room stable condition. Estimated Blood Loss 50 Drains No Packing No Pathology Yes Complications No immediate complications Condition Stable Disposition PACU
[2025-06-07] MEDS: fentaNYL CITRATE INJ (*CRX) 100 MCG/2 ML VIAL 25 MCG IV PUSH ×4 (15:21→15:40)
--- NOTE | 2025-07-02 10:42 | P.DS_ITS ---
DS: Admitting Diagnosis Discharge Date 06/07/25 Admitting Diagnosis incomplete miscarriage DS: Discharge Diagnosis Discharge Diagnosis (1) Incomplete miscarriage: Code(s): O03.4 - Incomplete spontaneous without complication Status: Acute DS: Summary Hospital Course Hospital Course: 29-year-old female admitted through the emergency department for incomplete miscarriage. Suction D&C was performed. She tolerated the procedure well. She recovered normally. She is sent home after a period of observation. Time Spent with Patient Time attestation: Total time spent providing and/or coordinating discharge services: DS: Data Data Completed and Pending Completed studies during hospitalization: Pending at discharge 06/07/25 14:50 Surgical [PTH] Routine Discharge Plan Discharge Attending physician on discharge: Venkat Gotti Consulting providers: Anne Ford; Duong Oconnor; Caden Gremain; Douglas Couch Discharging Clinician: Venkat Gotti Patient Disposition: Home Activity: may shower and pelvic rest Diet: as tolerated Wound Care Instructions: follow printed instructions Discharge Instructions: make follow up appointment with physician in 1 week Patient Language: Japanese Stand Alone Forms: General Discharge Information Follow-up/Referrals: Venkat Gotti MD [Physician] - Discharge Medications: New nitrofurantoin monohyd/m-cryst [Macrobid] 100 mg capsule 100 mg PO Q12H 5 Days Qty: 10 0RF Rx Instructions: must administer with a meal/food No Action nitrofurantoin monohyd/m-cryst [Macrobid] 100 mg capsule 100 mg PO Q12H 5 Days Qty: 10 0RF Rx Instructions: must administer with a meal/food phenazopyridine [Pyridium] 200 mg tablet 200 mg PO TID Qty: 6 0RF cyclobenzaprine 5 mg tablet 5 mg PO TID PRN (Reason: muscle spasm) Qty: 12 0RF Date of admission: 06/07/25 01:57 Primary Care Provider: PHYSICIAN,LIFE SCIENCE TECHNICAL OFFICER Admitting Provider: Venkat Gotti Attending physician on admission: Venkat Gotti Condition: Stable
--- NOTE | 2025-07-02 11:34 | W.PM.PROC2 ---
Procedure Note - Detailed Date of Procedure 07/02/25 Pre-op Diagnosis Missed Ab Post-op Diagnosis Same Procedure Performed Suction D&C Surgeon Venkat Gotti MD Anesthesia MAC Indications missed Findings normal-appearing vulva vagina and cervix to. Moderate amount of products conception within the uterus. 8 cm uterus Description of Procedure the patient was taken the operating room. She was prepped and draped in dorsal lithotomy position after induction of mac anesthesia. A speculum was placed in the vagina. Cervix grasped with tenaculum. The cervix was dilated to about 1 cm Using Leija dilators. A 8. Citizen Of [place] curved curette was used to perform suction D&C. The curette was introduced and vacuum was applied. The curette was removed over all surfaces of the intrauterine cavity multiple times. This was done until all the surfaces were clear and had the familiar grainy texture they can be felt through the instrument. A sharp curette was then used to curettage all the surfaces. The suction cup was then reapplied 1 more time to remove any debris. The instruments were removed. The speculum and tenaculum were removed. The patient tolerated the procedure well. She was taken recovery room stable condition. Estimated Blood Loss 50 Drains No Packing No Pathology Yes Complications No immediate complications Condition Stable Disposition PACU
== END 2025-06-07 17:45 | disposition home or self-care (01) ==
LOC: ANHED 06-07 01:56 → ANHOBPP 06-07 02:39
PROVIDERS: Admitting Provider Obstetrics & Gynecology; Emergency Provider Registered Nurse; Visit Provider Obstetrics & Gynecology
PROC: (CPT 59812; principal; 2025-06-07 15:30)
DX: O03.4 Incomplete spontaneous abortion without complication (principal); Z87.891 Personal history of nicotine dependence
CPT/HCPCS: 59812; 36415; 76801; 80053; 81001; 84702; 85014; 85018; 85025; 85461; 85610; 85730; 86850; 86900; 86901; 87086; 88305; 96361; 96374; 99285; A9270; G0378; J1885; J2003; J2250; J2270; J2704; J3010; J7030; J7120

== ENCOUNTER 2025-06-15 10:04 | Emergency (ER) | payer OTHER, SELFPAY ==
[2025-06-15] VITALS (11 sets, daily range): BP systolic 106–116; BP diastolic 53–71; PULSE 82–95; RESP 14–19; TEMP 36.6; O2SAT 99–100
--- NOTE | ~2025-06-15 | CT_ITS ---
EXAMINATION: CT abdomen pelvis w con DATE: 06/15/2025 11:30 INDICATION: Abdominal pain TECHNIQUE: Computed tomography (CT) of the abdomen and pelvis was performed with 100 cc Omnipaque 350 intravenous contrast. The dose-length product was 645.35 mGy-cm. Automated exposure control and iter ative reconstruction technique were employed. COMPARISON: CT dated 09/10/2024. FINDINGS: Heart size normal. Status post cholecystectomy. The liver, spleen, pancreas, adrenal glands and kidneys are unremarkable. No renal or ureteral stone identified. Nonobstructive bowel gas patter n. No lymphadenopathy. Small corpus luteal cyst of the right ovary. No abnormal pelvic masses or flui d collections. No significant vascular abnormality. No lymphadenopathy. No free air or free fluid. No acute osseous abnormality. IMPRESSION: 1. No acute abdominal abnormality. Reviewed, dictated and finalized at location A.
--- OUTSIDE RECORDS SUMMARY | 2025-06-15 10:07 | XMS_ITS | Continuity of Care Document ---
Author Organization [facility] Address [address] [facility] [address] [place] [address] Phone Care Team Providers Care Case Briefer Name Role Phone Navas OD, Riley Unavailable Unavailable Advance Directives Directive Yes / No Effective Date File Name No Information Encounters Encounter Description Practice Location Reason(s) For Visit Diagnoses Date Provider Providers Copied on Encounter [facility], [address], [place], [place], [id number], [place] tel:[phone] [facility] No Information [address] 6 Navas OD Riley. [address] , [address], [place], [address], [place]. tel:[phone] Family History Family Member Type Diagnosis Age At Onset No Information Payers Payer name Insurance type Covered constitution party ID Authoriza tion(s) Medicaid [facility] [id number] Social History Type Description Quantity Date Captured [...]
--- OUTSIDE RECORDS SUMMARY | 2025-06-15 10:08 | XMS_ITS | Clinical Summary ---
Author Organization [facility] Address [address] [address] Phone Care Team Providers Care Predator Control Trapper Name Role Phone Mellissa Aguilar MD Unavailable [phone] Clarisse Luong CLINICAL CASE MANAGER, DIRECTOR AGRICULTURAL SERVICES Primary Care Provider + Pau Duvall APRN, DIRECTOR AGRICULTURAL SERVICES Unavailable Allergies Active Allergy Reactions Criticality Noted [...] age to complete this topic Insurance MEDICAID [place] Care Teams Predator Control Trapper Relationship Specialty Start Date End Date Clarisse Luong APRN, DIRECTOR AGRICULTURAL SERVICES [address] [place] [address] PCP - General Advanced Practice Nurse 09/06/24 Mellissa Aguilar MD [address] [place] [address] Consulting Physician Gastroenterology 10/22/22 Pau Duvall APRN, DIRECTOR AGRICULTURAL SERVICES [address] [place] [address] Nurse Practitioner Advanced Practice Nurse 09/06/24
--- OUTSIDE RECORDS SUMMARY | 2025-06-15 10:08 | XMS_ITS | Data Portability ---
Author Organization [facility] Address [address] [place] [address] [place] [address] Care Team Providers Care Mainframe Architect Name Role Phone ZHOU SWAIN Primary Care Provider Assessment Encounter Date Assessment Date Assessment LastModified by Organization Details LastModified Time 02/13/2025 02/13/2025 Annual gynecological exam performed. Patient will come back in a year unless there are new symptoms. [email or web address] Not available 02/13/2025 16:31:09 Plan of Treatment Reminders Order Date Submit Date Provider Last Modified By Organization Details Last Modified Time Details Appointments None recorded. Lab pap, IG + reflex HPV if ASC-U - if positive HPV run subtyping 16,18/45 2024 025 [facility] (Lab), [address], [place], [address], 11:38:20 Referral None recorded. Procedures None recorded. Surgeries None recorded. Imaging US, obstetric, transvagina l 2024 025 [email or web address], [address], [address], [place], [address], 21:58:37 Medication Orders elagolix 200 mg tablet 2024 025 [id number], [address], [place], [id number], 12:10:14 Addyi 100 mg tablet 2024 025 [id number], [address] [place], [place], [id number], 16:32:47 Patient TargetsNo targets recorded. Patient InstructionsNo [...] t Case: [id number] 29 Autho salome margaux Provi mustapha: Daisy Renner, JOSE Silva cted: 02/13 1648 Order ing Locat ion: [...] cook or Kev hernandez (NIL) . Elect arpan bravo d by Bela León , CT on [...] false negat francisco resul ts. A negat francisco resul t does not precl ude the [...] as clini eva nielson nted. Not Available [facility] (Lab) [address], [place], [address], 02/19/2025 11:38:20 05/02/20 25 05/02/2025 [facility], QUANT ITATI VE B-HCG 501.0 mIU/m L 0.0-4. 9 high This assay was perfo rmed using [employer] ratio n reage nts and test kits. Value s obtai carmine with other assay metho ds or kits canno t be used inter [facility] . Refer ence Range s: Non-p regna [...] Weeks 8,099 - 58,17 6 Not Available [facility] (Lab) [address], [place], [address], 05/03/2025 02:58:41 05/04/20 25 05/04/2025 [facility], QUANT ITATI VE B-HCG 774.0 mIU/m L 0.0-4. 9 high This assay was perfo rmed using [employer] reage nts and test kits. Value s obtai carmine with other assay metho ds or kits canno t be used inter [facility] . Refer ence Range s: Non-p regna [...] Weeks 8,099 - 58,17 6 Not Available [facility] (Lab) [address], [place], [address], 05/05/2025 05:54:59 06/01/20 25 06/01/2025 [facility], QUANT ITATI VE B-HCG 87828. 0 mIU/m L 0.0-4. 9 high This [...] Weeks 8,099 - 58,17 6 Not Available [facility] (Lab) [address], [place], [address], 06/02/2025 05:58:53 06/01/20 25 06/01/2025 US, obste tric, trans vagin al No observ ation record ed. [facility] [address], [place], [address], 06/01/2025 13:30:45 06/01/2006/01/2025 US, obste tric, follo w-up No observ ation record ed. [id number] [address], [place], [address], 06/04/2025 12:09:55 Result Notes None recorded. Problems Name Problem SNOMED Code Status Onset Date Resolution Date Notes Provider Name and Address Organization Details Recorded Time Gestatio nal diabetes mellitus class A2 74299028 Completed 5u NPH AM, 5u Lispro Lunch, 15u NPH @ [facility] - [facility] 03/31 [facility] 14:52:11 Cholesta sis [id number] Completed 07/07 - Per Scarlett with M - she spoke with Dr. Dangelo and to cont ursodiol and anticipa te/assum e cholesta sis based on presenta tion. Rpt labs next week before [facility] appt on 07/21. Might recommen d 37-38wk alena Weber [facility] 3 14:52:12 Amenorrh ea [id number] Completed 201409/23/2021 AMENORRH EA;Pract ice ID: 0001 Emma conrad [facility] 1 10:28:02 Speciali zed medical examinat ion Completed 201409/23/2021 Routine gynecolo gical examinat ion;Prac dante ID: 0001 Emma Cord[facility] 1 10:31:25 Pregnanc y test positive [id number] Completed 201409/23/2021 Positive Pregnanc y Test;Pra ctice ID: 0001 Emma conrad [facility] 1 10:30:38 Uterine size for dates discrepa riy [id number] Completed 201409/23/2021 UTERINE SIZE MEG-ANTE PAR;Prac dante ID: 0001 [facility] 10:31:47 Mild hypereme sis-not delivere d [id number] Completed 201409/23/2021 Hypereme sis gravidar um, antepart um Mild;Pra ctice ID: 0001 Emma Cordova [facility] 10:30:08 Nausea and vomiting [id number] Completed 201409/23/2021 Nausea with vomiting ;Practic e ID: 0001 Emma [facility] 10:30:09 Syncope and collapse [id number] Completed 201409/23/2021 Syncope and collapse ;Practic e ID: 0001 Emma Cordova [facility] 10:31:31 Antenata l screenin g Completed 201409/23/2021 ANTENATA L SCREENIN G NEC;Prac dante ID: 0001 Emma Cordova [facility] 10:28:04 Primigra parisa [id number] Completed 201409/23/2021 Supervis ion of normal first pregnanc y;Jairti ce ID: 0001 Emma Cordova [facility] 10:30:56 anatomy study Completed 201409/23/[facility]P ractice ID: 0001 Emma [facility] 10:29:10 Complica tion of pregnanc y, childbir th and/or puerperi [id number] Completed 201409/23/2021 OTH CURR COND-ANT EPARTUM; Practice ID: 0001 Emma Cordova [facility] 1 10:28:17 Pregnanc y, childbir th and puerperi um finding Completed 201409/23/2021 Encntr for suprvsn of normal first preg, third trimeste r;Practi ce ID: 0001 Emma Cordova [place], [facility] 1 10:30:41 Urinary tract infectio us disease [id number] Completed 201409/23/2021 Urinary tract infectio n, site not specifie d;Practi ce ID: 0001 Emma Cordova [place], [facility] 10:31:42 Eruption [id number] Completed 201409/23/2021 Rash;Rec orded Elsewher e: No Locat ion: Curtis [facility] S ource: EHR Vice President Sales doris: N Practi ce ID: 0001 Roel lable Time: 03:30:00 PM Emma Cordova [place], [facility] 1 10:28:58 Pregnanc y, childbir th and puerperi um finding Completed 201409/23/2021 Oth pregnanc y related conditio ns, third trimeste r;Practi ce ID: 0001 Emma conrad, [facility] 10:28:13 Noninfec tious enteriti s of intestin e [id number] Completed 201409/23/2021 Gastroen teritis; Recorded Elsewher e: No Locat ion: [facility] S ource: EHR Vice President Sales doris: N Practi ce ID: 0001 Roel lable Time: 02:30:00 PM Emma conrad, [facility] 1 10:30:00 prematur e rupture of membrane s [id number] Completed 201409/23/2021 Pretrm evelin ROM, unsp time betw rupt and onst labr, 3rd tri;Prac danet ID: 0001 Emma conrad [facility] 1 10:30:54 Lochia finding Completed 201509/23/2021 Encounte r for routine postpart um follow-u p;Record ed Elsewher e: No [facility]at [facility] S ource: EHR Vice President Sales doris: N Jairti ce ID: 0001 Roel lable Time: 01:00:00 PM Emma conrad [facility] 1 10:30:[address] Concept Completed 201509/23/2021 Encounte r for surveill ance of other contrace ptives;R ecorded Elsewher e: No Locat ion: [facility] S ource: EHR Vice President Sales doris: N Jairti ce ID: 0001 Roel lable Time: 01:00:00 PM Emma conrad [facility] 1 10:31:20 Sexually transmit car infectio us disease [id number] Completed 201509/23/2021 STD;Romulo rded Elsewher e: No Locat ion: [facility] S ource: EHR Vice President Sales doris: N Jairti ce ID: 0001 Roel lable Time: 10:30:00 AM Emma conrad [facility] 1 10:31:01 Uses combined oral contrace ption [id number] Completed 201609/23/2021 Encounte r for initial prescrip tion of contrace ptive pills;Re corded Elsewher e: No Locat ion: [facility] S ource: EHR Vice President Sales doris: N Jiarti ce ID: 0001 Roel lable Time: 08:30:00 AM Emma conrad [facility] 1 10:28:15 Procedur e Completed 201609/23/2021 Encounte r for checking , reinsert ion or removal of implanta ble subderma l contrace ptive;Re corded Elsewher e: No Locat ion: [facility] S ource: EHR Vice President Sales doris: N Practi ce ID: 0001 Roel lable Time: 08:30:00 AM Emma conrad, [facility] 10:30:58 Infectio n screenin g Completed 201609/23/2021 Encounte r for screenin g for oth infec/pa rastc diseases ;Recorde d Elsewher e: No Locat ion: [facility] S ource: EHR Vice President Sales doris: N Practi ce ID: 0001 Roel lable Time: 11:00:00 AM Emma Cord[facility], [facility] 10:29:58 Acute vaginiti s [id number] Completed 201609/23/2021 Acute vaginiti s;Record ed Elsewher e: No Locat ion: [facility] S ource: EHR Vice President Sales doris: N Practi ce ID: 0001 Roel lable Time: 11:00:00 AM Emma Cordova [facility], [facility] 10:28:00 Vaginola bial hernia Completed 201609/23/2021 Other specifie d noninfla mmatory disorder s of vagina;R ecorded Elsewher e: No Locat ion: [facility] S ource: EHR Vice President Sales doris: N Practi ce ID: 0001 Roel lable Time: 11:00:00 AM Emma conrad, [facility] 10:31:49 Substanc e abuse counseli ng Completed 201609/23/2021 Tobacco abuse counseli ng;Recor ded Elsewher e: No Locat ion: [facility] S ource: EHR Vice President Sales doris: N Practi ce ID: 0001 Roel lable Time: 11:00:00 AM Emma conrad, [facility] 10:31:[address] Concept Completed 201609/23/2021 Encntr for general adult medical exam w/o abnormal findings ;Recorde d Elsewher e: No Locat ion: [facility] S ource: EHR Vice President Sales doris: N Jairti ce ID: 0001 Roel lable Time: 11:00:00 AM Emma conrad, [facility] 1 10:31:16 Increase d frequenc y of urinatio n [id number] Completed 201609/23/2021 Frequenc y of micturit ion;Romulo rded Elsewher e: No Locat ion: [facility] N Jairti ce ID: 0001 Roel lable Time: 11:15:00 AM Emma conrad, [facility] 1 10:29:56 Pregnanc y detectio n examinat ion Completed 201709/23/2021 Encounte r for pregnanc y test, result positive ;Recorde d Elsewher e: No Locat ion: [facility]: [facility]: N Jairti ce ID: 0001 Roel lable Time: 02:15:00 PM Emma conrad, [facility] 1 10:30:18 Finding of regulari ty of menstrua l cycle Completed 201709/23/2021 Irregula r bleeding ;Recorde d Elsewher e: No Locat ion: [facility] S ource: [facility] d[facility]: N Jairti ce ID: 0001 Roel lable Time: 02:15:00 PM Emma conrad, [facility] 1 10:29:18 Cyst of ovary Completed 201709/23/2021 Unspecif ied ovarian cyst, unspecif ied side;Rec orded Elsewher e: No Locat ion: [facility] S ource: EHR Vice President Sales doris: N Jairti ce ID: 0001 Roel lable Time: 11:00:00 AM Emma conrad [facility] 1 10:28:44 Syphilis test finding [id number] Completed 201709/23/2021 Encntr screen for infectio ns w sexl mode of transmis s;Record ed Elsewher e: No Locat ion: [facility]am [facility] S ource: EHR Vice President Sales doris: N Ab ce ID: 0001 Roel lable Time: 11:00:00 AM Emma conrad, [facility] 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 1 10:31:18 Body mass index 30+ - obesity [id number] Completed 201709/23/2021 Body mass index (BMI) 32.0-32. 9, adult;Re corded Elsewher e: No [facility]: EHR Vice President Sales doris: N Ab ce ID: 0001 Roel lable Time: 11:00:00 AM Emma conrad [facility] 1 10:28:11 Finding of pattern of menstrua l cycle [id number] Completed 201709/23/2021 Excessiv e and frequent menstrua tion with irregula r cycle;Re corded Elsewher e: No [facility]at [facility] S ource: EHR Vice President Sales doris: N Jairti ce ID: 0001 Roel lable Time: 01:00:00 PM Emma conrad [facility] 1 10:29:16 Mammogra phic calcific ation of breast [id number] Completed 201709/23/2021 Mammogra phic calcifcn found on diagnost ic imaging of breast;R ecorded Elsewher e: No Locat ion: [facility] S ource: [facility] d[facility]: N Ab ce ID: 0001 Roel lable Time: 01:00:00 PM Emma conrad, [facility] 1 10:30:05 Pain in female genitali a Completed 201709/23/2021 Dysmenor jannette, unspecif ied;Romulo rded Elsewher e: No Locat ion: [facility] S ource: [facility] d[facility]: N Jairti ce ID: 0001 Roel lable Time: 01:00:00 PM Emma Cord[facility], [facility] 10:30:13 Depressi ve disorder [id number] Completed 201709/23/2021 Major depressi ve disorder , single episode, unspecif ied;Romulo rded Elsewher e: No Locat ion: [facility] S ource: [facility] doris: N Ab ce ID: 0001 Roel lable Time: 09:00:00 AM Emma [facility], [facility] 1 10:28:[address] Concept Completed 201709/23/2021 Anxiety disorder , unspecif ied;Romulo rded Elsewher e: No Locat ion: [facility] S ource: [facility] dor[facility]: N Ab ce ID: 0001 Roel lable Time: 09:45:00 AM Emma Cordova [place], [facility] 1 10:31:09 Pregnanc y test negative [id number] Completed 201709/23/2021 Encounte r for pregnanc y test, result negative ;Recorde d Elsewher e: No Locat ion: [facility] S ource: [facility] d[facility]: N Ab ce ID: 0001 Roel lable Time: 09:45:00 AM Emma conrad, [facility] 1 10:30:36 Blood leukocyt e number above referenc e range [id number] Completed 201709/23/2021 Elevated white blood cell count, unspecif ied;Romulo rded Elsewher e: No Locat ion: [facility] S ource: EHR Vice President Sales doris: N Practi ce ID: 0001 Roel lable Time: 11:45:00 AM Emma Cordova [place], [facility] 1 10:29:54 Pelvic and perineal pain [id number] Completed 201709/23/2021 Pelvic and perineal pain;Rec orded Elsewher e: No Locat ion: [facility] S ource: EHR Vice President Sales doris: N Practi ce ID: 0001 Roel lable Time: 11:15:00 AM Emma conrad, [facility] 1 10:30:16 Dysuria [id number] Completed 201709/23/2021 Dysuria; Recorded Elsewher e: No Locat ion: [facility] S ource: EHR Vice President Sales doris: N Practi ce ID: 0001 Roel lable Time: 11:45:00 AM Emma Cordova [place] [facility] 1 10:28:56 Exposure to sexually transmis sible disorder Completed 201709/23/2021 Contact w and exposure to infect w a sexl mode of transmis s;Practi ce ID: 0001 Emma Cordova [place], [facility] 1 10:29:00 Gestatio n less than 9 weeks [id number] Completed 201809/23/2021 Less than 8 weeks gestatio n of pregnanc y;Record ed Elsewher e: No Locat ion: [facility] S ource: EHR Vice President Sales doris: N Practi ce ID: 0001 Roel lable Time: 08:15:00 AM Emma conrad [facility] 1 10:29:22 Situatio n with explicit context Completed 201809/23/2021 Suprvsn of preg w poor reprodct v or obstet hx, first tri;Romulo rded Elsewher e: No Locat ion: [facility] S ource: EHR Vice President Sales doris: N Practi ce ID: 0001 Roel lable Time: 08:15:00 AM Emma conrad, [facility] 1 10:31:07 Threaten ed miscarri age [id number] Completed 201809/23/2021 Threaten ed ;Recorde d Elsewher e: No Locat ion: [facility] S ource: EHR Vice President Sales doris: N Practi ce ID: 0001 Roel lable Time: 10:30:00 AM Emma conrad, [facility] 10:31:38 Blighted ovum [id number] Completed 201809/23/2021 Blighted ovum and nonhydat idiform mole;Rec orded Elsewher e: No Locat ion: [facility] S ource: EHR Vice President Sales doris: N Practi ce ID: 0001 Roel lable Time: 10:30:00 AM Emma conrad, [facility] 10:28:08 Finding of contents of cervix [id number] Completed 201809/23/2021 Weeks of gestatio n of pregnanc y not specifie d;Record ed Elsewher e: No Locat ion: [facility] S ource: EHR Vice President Sales doris: N Practi ce ID: 0001 Roel lable Time: 10:30:00 AM Emma conrad, [facility] 1 10:29:13 Normal pregnanc y in multigra parisa [id number] 42558 Completed 201809/23/2021 Encounte r for suprvsn of normal pregnanc y, second trimeste r;Record ed Elsewher e: No Locat ion: [facility] S ource: EHR Vice President Sales doris: N Practi ce ID: 0001 Roel lable Time: 05:00:00 PM Emma conrad [facility] 1 10:30:11 Antenata l screenin g for malforma tion Completed 201809/23/2021 Encounte r for antenata l screenin g for malforma tions;Re corded Elsewher e: No [facility] S ource: EHR Vice President Sales doris: N Practi ce ID: 0001 Roel lable Time: 10:30:00 AM Emma conrad [facility] 10:28:06 Gestatio n period, 20 weeks [id number] Completed 201809/23/2021 20 weeks gestatio n of pregnanc y;Record ed Elsewher e: No [facility]: [facility]: N Practi ce ID: 0001 Roel lable Time: 11:30:00 AM Emma conrad [facility] 10:29:24 Complica tion of pregnanc y, childbir th and/or puerperi [id number] Completed 201909/23/2021 Oth diseases and conditio ns compl preg/chl dbrth;Re corded Elsewher e: No Locat ion: [facility] S ource: EHR Vice President Sales doris: N Practi ce ID: 0001 Roel lable Time: 03:15:00 PM Emma conrad [facility] 1 10:31:40 Gestatio n period, 29 weeks [id number] Completed 201909/23/2021 29 weeks gestatio n of pregnanc y;Record ed Elsewher e: No Locat ion: [facility] S ource: EHR Vice President Sales doris: N Practi ce ID: 0001 Roel lable Time: 03:15:00 PM Emma Tasha [place] [facility] 10:29:27 Gestatio n period, 30 weeks [id number] Completed 201909/23/2021 30 weeks gestatio n of pregnanc y;Record ed Elsewher e: No Locat ion: [facility] S ource: EHR Vice President Sales doris: N Ab ce ID: 0001 Roel lable Time: 10:45:00 AM Emma Cordova [place], [facility] 10:29:29 Uterine size for dates discrepa ncy Completed 201909/23/2021 Uterine size-neeta e discrepa ncy, second trimeste r;Record ed Elsewher e: No [facility]: EHR Vice President Sales doris: N Jairti ce ID: 0001 Roel lable Time: 10:45:00 AM Emma Cordova [place], [facility] 10:31:[address] Concept Completed 201909/23/2021 Decrease d movement s, third trimeste r, unsp;Rec orded Elsewher e: No [facility]at [facility] S ource: EHR Vice President Sales doris: Marjorie Berger ce ID: 0001 Roel lable Time: 11:30:00 AM Emma conrad [facility] 10:31:14 Prematur e rupture of membrane s [id number] Completed 201909/23/2021 Evelin ROM, 7th0 betw rupt & onst labr, unsp weeks of gest;Pra ctice ID: 0001 Emma Cordova [place], [facility] 10:30:51 Gestatio n period, 32 weeks [id number] Completed 201909/23/2021 32 weeks gestatio n of pregnanc y;Record ed Elsewher e: No [facility]: EHR Vice President Sales doris: N Practi ce ID: 0001 Roel lable Time: 11:00:00 AM Emma Tasha [place], [facility] 10:29:30 Gestatio n period, 33 weeks [id number] Completed 201909/23/2021 33 weeks gestatio n of pregnanc y;Record ed Elsewher e: No Locat ion: [facility] S ource: EHR Vice President Sales doris: N Practi ce ID: 0001 Roel lable Time: 03:00:00 PM Emma Tasha [place], [facility] 10:29:32 Gestatio n period, 34 weeks [id number] Completed 201909/23/2021 34 weeks gestatio n of pregnanc y;Record ed Elsewher e: No Locat ion: [facility] S ource: EHR Vice President Sales doris: N Practi ce ID: 0001 Roel lable Time: 11:00:00 AM Emma Tasha [place], [facility] 1 10:29:34 False labor before 37 complete d weeks of gestatio n [id number] Completed 201909/23/2021 False labor before 37 complete d weeks of gest, third tri;Prac dante ID: 0001 Emma Cordova [place], [facility] 10:29:08 Gestatio n period, 35 weeks [id number] Completed 201909/23/2021 35 weeks gestatio n of pregnanc y;Record ed Elsewher e: No Locat ion: [facility] S ource: EHR Vice President Sales doris: N Practi ce ID: 0001 Roel lable Time: 11:30:00 AM Emma conrad, [facility] 10:29:36 Gestatio nal diabetes mellitus [id number] Completed 201909/23/2021 Gestatio nal diabetes in pregnanc y, insulin controll ed;Recor ded Elsewher e: No Locat ion: [facility] S ource: EHR Vice President Sales doris: N Practi ce ID: 0001 Roel lable Time: 10:30:00 AM Emma conrad, [facility] 10:29:52 Gestatio n period, 36 weeks [id number] Completed 201909/23/2021 36 weeks gestatio n of pregnanc y;Practi ce ID: 0001 Emma conrad, [facility] 10:29:38 Pregnanc y-induce d hyperten bo Completed 201909/23/2021 Gestatio nal htn w/o signific ant proteinu anais, third trimeste r;Practi ce ID: 0001 Emma conrad, [facility] 10:30:49 Gestatio n period, 37 weeks [id number] Completed 201909/23/2021 37 weeks gestatio n of pregnanc y;Record ed Elsewher e: No Locat ion: [facility] S ource: EHR Vice President Sales doris: N Practi ce ID: 0001 Roel lable Time: 10:30:00 AM Emma conrad, [facility] 10:29:40 False labor at or after 37 complete d weeks of gestatio n [id number] Completed 201909/23/2021 False labor at or after 37 complete d weeks of gestatio n;Practi ce ID: 0001 Emma conrad, [facility] 10:29:06 Gestatio n period, 38 weeks [id number] Completed 201909/23/2021 38 weeks gestatio n of pregnanc y;Record ed Elsewher e: No Locat ion: [facility] S ource: EHR Vice President Sales doris: N Practi ce ID: 0001 Roel lable Time: 10:30:00 AM Emma conrad, [facility] 10:29:41 Term pregnanc y delivere d [id number] Completed 201909/23/2021 Encounte r for full-ter m uncompli cated delivery ;Practic e ID: 0001 Emma conrad, [facility] 10:31:36 Single live from singleto n pregnanc y [id number] Completed 201909/23/2021 Single live ;Pr actice ID: 0001 Emma conrad, [facility] 10:31:03 Gestatio n period, 39 weeks [id number] Completed 201909/23/2021 39 weeks gestatio n of pregnanc y;Practi ce ID: 0001 Emma Cordova [facility], [facility] 10:29:43 Past pregnanc y history of gestatio nal diabetes mellitus 326665206 Active 2022 Tiffanie Flores MD [address], [place], [address], [facility] 3 19:36:59 Pregnanc y 58952881 Completed 202208/16/2023 Alishamarya Ledesmale [facility] 3 14:52:19 Gestatio nal diabetes mellitus 35279297 Completed 2022 h/o gdm2A. Checking BS QID, serial growth, antenata l testing José Ledesmale [facility], [facility] 3 14:52:11 Problem Notes None recorded. Procedures Surgical History Date Name Laterality Status Provider Name and Address Organization Details Recorded Time 02/14/20 Date of Last Pap Smear completed Tiffanie Boothe [facility] 06/01/2025 12:11:46 08/30/20 IUD Removal completed Maria T Carlton CNM [address], [place], [address], [facility] 08/31/2024 13:59:56 08/04/20 24 IUD Insertion completed Maria T Carlton CNM [address], [place], [address], [facility] 08/05/2024 08:44:48 07/29/20 22 Hysteroscopy completed Maria T Carlton CNM [address], [place], [address], [facility] 07/29/2022 08:52:41 07/29/20 22 Hysteroscopy completed Emma Cordova [facility] 07/29/2022 08:35:27 07/21/20 22 IUD Removal completed Swetha Schwab [facility] 07/21/2022 12:21:30 04/17/20 20 [facility] 04/17/2020 12:09:21 03/20/20 20 [facility] 03/20/2020 12:11:51 11/22/19 18 Appendectomy completed Emma Cordova [facility] 10/01/2020 19:16:40 11/22/19 14 completed Kayla Fournier [facility] 10/08/2021 16:13:03 11/22/19 14 colonoscopy completed Emma Cordova [facility] 09/23/2021 10:34:09 11/22/19 13 Dilation and curettage completed Emma Cordova [facility] 09/23/2021 10:34:16 11/22/19 00 tonsillectomy completed Emma Cordova [facility] 09/23/2021 10:34:23 Imaging Results None recorded. Procedure Notes None recorded. Medical Equipment None Reported. Allergies Allergen ID Allergen Name Allergen Category Reaction Reaction Severity Criticality Documentation Date Start Date Code Code System Note Provider Name and Address Organization Details Recorded Time prednison e medicatio n Not available Not available Not available 01/05/2023 8640 RxNorm Emma Cordova [facility], [facility] 3 10:49:28 2666 amoxicill in medicatio n Not available Not available Not available 10/01/2020 723 RxNorm Emma Cordova [facility], [facility] 1 10:27:49 91 aspirin medicatio n Not available Not available Not available 03/04/2020 1191 RxNorm Caterina Aquino [facility], [facility] 0 17:51:36 Medications Name Sig [...] Elsewher e: No Locat ion: [facility] odify By: raul z Encoun ter DateTime : 04/23/20 15 11:17:56 AM Not Available Not Available Not [...] Prescrib ed Elsewher e: No [facility] odify By: raul z Encoun ter DateTime : 10/10/20 15 11:00:00 AM Not Available Not Available Not Available prednison e 20 mg tablet TAKE 3 TABLETS BY MOUTH EVERY DAY FOR 5 DAYS 01/05 completed Not Available Not Available Not Available Pyridium 200 mg tablet take 1 tablet by oral route 3 times every day after meals 10/20 completed Prescrib ed Elsewher e: No Locat ion: [facility] odify By: margaret Barroso r DateTime : 05/28/20 17 11:15:00 AM Not Available Not Available Not Available Diflucan 150 mg tablet take 1 tablet by oral route once 04/26 completed Prescrib ed Elsewher e: No Locat ion: [facility] odify By: annalisa Barroso r DateTime : 03/29/20 17 11:00:00 AM Not [...] Prescrib ed Elsewher e: No Locat ion: [facility] odify By: [email or web address] Vargas ncorufus DateTime : 07/21/20 18 04:08:38 PM Not Available Not Available Not Available dicyclomi ne 20 mg tablet 10/01 completed Not Available Not Available Not Available betametha sone valerate 0.1 % topical cream apply by topical route every day a thin layer to the affected area(s) 02/01 completed Prescrib ed Elsewher e: No Locat ion: [facility] odify By: [email or web address] z Encoun ter [...] Prescrib ed Elsewher e: No [facility]at [facility] By: annalisa turner DateTime : 09/12/20 18 12:13:51 PM Not Available Not Available Not [...] Prescrib ed Elsewher e: No [facility]at [facility] odify By: jill palomo DateTime : [...] Prescrib ed Elsewher e: No Locat ion: [facility] odify By: [email or web address] z Encoun ter DateTime : 09/02/20 09:21:34 AM Not Available Not Available Not Available noreskyla jatinder (contrace ptive) 0.35 mg tablet TAKE 1 TABLET BY MOUTH EVERY DAY 02/13 completed Not Available Not Available Not Available Zoloft 25 mg tablet take 1 tablet by oral route every day 03/29 completed Prescrib ed Elsewher e: No Locat ion: [facility] odify By: raul z Encoun ter DateTime : 04/03/20 02:45:00 PM Not Available Not Available Not Available ondansetr on 4 mg disintegr ating tablet DISSOLVE 1 TABLET ON THE TONGUE EVERY 8 HOURS NEEDED FOR NAUSEA OR VOMITING 11/08 completed Not Available Not Available Not Available Necon 0.5/35 (28) 0.5 mg-35 mcg tablet take 1 tablet by oral route every day 06/23 completed Prescrib ed Elsewher e: No Locat ion: [facility] odify By: annalisa turner DateTime : 09/09/20 11:45:00 AM Not Available Not Available Not [...] Prescrib ed Elsewher e: No Locat ion: [facility] odify By: [email or web address] Vargas ncorufus DateTime : 08/01/20 02:08:52 PM Not Available [...] Prescrib ed Elsewher e: No Locat ion: [facility] odify By: lexi correa DateTime : 12/08/19 [...] Prescrib ed Elsewher e: No [facility] od[facility] By: [email or web address] Barroso r DateTime : 05/28/20 11:15:00 AM Not Available Not Available Not Available Humulin N NPH U-100 Insulin KwikPen 100 unit/mL (3 mL) subcutane ous 09/03 completed Not Available Not Available Not Available Fora I64-X87-X 10-D20 strips-la ncets 30 gauge combo pack checking BS QID fasting and 1hr pp 07/21 completed Prescrib ed Elsewher e: No Locat ion: [facility] odify By: [email or web address] Barroso r DateTime : 11/27/19 11:22:44 AM [...] within 30 minutes once 06/23 completed Prescrib michele Zaman e: No [facility] odify By: annalisa turner DateTime : 09/13/20 09:42:56 AM Not Available Not Available Not [...] completed Not Available Not Available Not Available too frost 06/01 completed Not Available Not Available Not Available Dexcom G7 Sensor device TEST BLOOD GLUCOSE DIRECTED . CHANGE EVERY 10 DAYS 07/23 completed Not Available Not Available Not Available Vitals Date Recorded Body height Body mass index (BMI) Body weight Systolic And Diastolic Provider Name and Address Organization Details Last Updated DateTime 01/17/2025 157.48 cm 34.8 kg/m2 26533.55 g 118/75 mm[Hg] Andra Boyce [facility] 01/17/2025 15:34:42 Date Recorded Body height Body mass index (BMI) Body weight Systolic And Diastolic Provider Name and Address Organization Details Last Updated DateTime 02/13/2025 157.48 cm 34.1 kg/m2 34894.34 g 118/78 mm[Hg] Kimberly Rossney [facility] 02/13/2025 16:31:57 Date Recorded Body height Body mass index (BMI) Body weight Systolic And Diastolic Provider Name and Address Organization Details Last Updated DateTime 06/01/2025 157.48 cm 33.8 kg/m2 33002.59 g 126/75 mm[Hg] Tiffanie Boothe [facility] 06/01/2025 12:07:28 Social History Question Answer Notes LastModified by Organizat ion Details LastModified Time Tobacco Smoking Status Former Smoker Emma conrad, [facility] 10/01/2020 15:14:21 If You Are , What Was Your Level Of Alcohol Consumption Prior To ? Occasional [email or web address] Information not available 02/01/2023 Are You Blind Or Do You Have Difficulty Seeing? No [email or web address] Information not available 09/23/2021 In The 14 Days Before Symptom Onset, Have You Had Close Contact With A Laboratory-confir med COVID-19 While That Case Was Ill? No [email or web address] Information not available 02/01/2023 In The 14 Days Before Symptom Onset, Have You Had Close Contact With A Person Who Is Under Investigation For COVID-19 While That Person Was Ill? No [email or web address] Information not available 02/01/2023 Have You Been To An Area Known To Be High Risk For COVID-19? No [email or web address] Information not available 02/01/2023 Are You Deaf Or Do You Have Serious Difficulty Hearing? No [email or web address] Information not available 09/23/2021 What Type Of Diet Are You Following? REGULAR [email or web address] Information not available 09/23/2021 What Was The Date Of Your Most Recent Tobacco Screening? 08/30/2024 Information not available 08/30/2024 Do You Use Your Seat Belt Or Car Seat Routinely? Yes [email or web address] Information not available 02/01/2023 Do You Have Smoke And Carbon Monoxide Detectors In Your Home? Yes [email or web address] Information not available 02/01/2023 How Much Tobacco Do You Smoke? No Information not available 05/21/2020 Do You Use Sunscreen Routinely? Yes [email or web address] Information not available 02/01/2023 Has Tobacco Cessation Counseling Been Provided? No [email or web address] Information not available 02/01/2023 Do You Have Difficulty Walking Or Climbing Stairs? No [email or web address] Information not available 07/21/2022 Sex: Unknown Functional Status Question Answer Note LastModified by Organizat ion Details LastModified Time Do you use any illicit or recreational drugs? No [email or web address] Information not available 02/01/2023 Do you or have you ever used any other forms of tobacco or nicotine? No [email or web address] Information not available 02/01/2023 What is your level of alcohol consumption? None Information not available 02/01/2023 Do you or have you ever used smokeless tobacco? Never used smokeless tobacco [email or web address] Information not available 05/21/2020 Are you able to walk? YESWOREST [email or web address] Information not available 09/23/2021 Are you able to care for yourself independently? Yes [email or web address] Information not available 07/21/2022 Do you have difficulty dressing, bathing, grooming, or toileting? No [email or web address] Information not available 07/21/2022 Do you or have you ever used e-cigarettes or vape? Never used electronic cigarettes [email or web address] Information not available 05/21/2020 What is your exercise level? Occasional walking [email or web address] Information not available 03/05/2020 Mental Status Question Answer Note LastModified by Organization D etails LastModified Time Do you feel stressed (tense, restless, nervous, or anxious, or unable to sleep at night)? [id number] [email or web address] Information not available 02/01/2023 Family History Relationship [...] Code Diagnosis Note [id number] Swetha Schwab CNM [facility] [address] [address] 03/05/2020 14:17:28 03/07/2020 11:23:54 care 440380298 Z39.2 Continue to watch for signs/symp toms [...] paper copy of today's plan if desired Contracept ion education 528041926 Z30.09 Discussed all control options and pt [...] weeks post . [id number] Swetha Schwab CNM [facility] [address] [address] 03/20/2020 10:56:39 03/20/2020 12:28:56 Insertion of intrauterine contraceptive device 91215485 Z30.430 Vaginitis 83530553 N76.0 Discussed use of mild soap like dove or ivory, cotton underwear w/out dye, hypoallerg enic detergent, wipe from front to back, avoid tub baths, keep perineum clean and dry, d/c use of baby wipes. Encouraged daily intake of yogurt or womens health probiotic. Internal and external affirm collected. Will treat with flagyl for possible BV. Very slight odor noted on exam. 5457 NESSA Atkinson [address] [address] 04/17/2020 10:28:01 04/17/2020 12:36:54 IUD check 233429974 Z30.431 Pt doing well. No complaints . Unable to see strings. U/S ordered. [id number] Venkat Valdez MD [facility] [address],[place] [address] 04/17/2020 10:50:50 04/17/2020 11:23:56 Mechanical complication of intrauterine contraceptive device 974190215 T83.39XA [id number] [facility] [address],[place] [address] 05/21/2020 10:26:33 05/21/2020 11:40:42 Vaginitis 94418151 N76.0 Mass of right breast 219 9911677 6428019 N63.10 [id number] Maria T Carlton CNM [facility] [address],[place] [address] 10/01/2020 14:54:13 10/01/2020 17:52:14 Mastitis associated with 589172192 O91.23 [id number] Maria T Carlton CNM [place] [address],[place] [address] 09/23/2021 09:23:09 09/23/2021 11:11:03 Dysmenorrhea 995482944 N94.6 [id number] Venkat Valdez MD [facility] [address],[place] [address] 09/23/2021 09:21:32 09/23/2021 10:11:19 Pain in pelvis 83908382 R10.2 [id number] Swetha Schwab CNM [facility] [address],[place] [address] 09/24/2021 10:04:00 09/24/2021 11:52:09 [id number] Swetha Schwab CNM [facility] [address] [address] 10/13/2021 09:38:43 10/13/2021 12:11:58 Gynecologic examination 97244989 Z01.419 Take Calcium with Vitamin D 1200mg [...] paper copy of today's plan if desired. [id number] Venkat Valdez MD [facility] [address] [place] [address] 11/03/2021 09:19:52 11/03/2021 12:45:09 Pain in pelvis 88055834 R10.2 [id number] Venkat Valdez MD [facility] [address] [place] [address] 03/17/2022 11:51:43 03/17/2022 12:33:52 Pain in pelvis 37717233 R10.2 [id number] Venkat Valdez MD [facility] [address] [place] [address] 07/17/2022 13:14:21 07/17/2022 13:59:55 Uncertain viability of 044541668 O36.80X0 Z3A.00 [id number] Venkat Valdez MD [facility] [address] [place] [address] 07/17/2022 14:13:20 07/17/2022 14:30:02 test positive 872157678 Z32.01 Pt here with 3 faint positive [...] Pt informed and schd for 07/21 with KP for IUD removal. Pt sent to lab for HCG. Pt verbalized undertstan ding. ALEXEY jung [id number] [facility] [address] [address] 07/21/2022 10:26:55 07/22/2022 03:50:54 Urinary symptoms 804887067 R39.9 Removal of intrauterine device 32598099 Z30.432 NO CHARGE VISITJie ble to remove. Will need to schedule surgical removal. Pt has specifical ly requested female. She has met Maria T in the past. [facility] 164036409 Z30.9 Discussed all control options in great [...] verbalized understand ing. Planning removal of IUD. [id number] Maria T Carlton CNM [facility] [address],[place] [address] 07/24/2022 10:09:28 07/24/2022 12:56:34 Mechanical complication of intrauterine contraceptive device 836297359 T83.39XA [id number] [facility] [address],[place] [address] 07/29/2022 08:31:32 07/29/2022 10:16:00 Screening procedure 04864668 Z13.9 Mechanical complication of intrauterine contraceptive device 190977539 T83.39XA [id number] Venkat Valdez MD [facility] [address],[place] [address] 12/24/2022 12:30:14 12/24/2022 13:38:57 Abdominal pain in early 412336214 Z33.1 Z3A.01 [id number] Tiffanie Flores MD [facility] [address],[place] [address] 01/05/2023 09:52:34 01/05/2023 11:08:07 [id number] Tiffanie Flores MD [facility] [address],[place] [address] 01/05/2023 09:52:55 01/07/2023 11:38:15 Amenorrhea 84109927 N91.2 test positive 115443227 Z32.01 Moderate h yperemesis gravidarum 340251578 O21.0 Maternal o besity complicating , childbirth and the puerperium, antepartum 7493744280 07 O99.211 bmi 38 Past pregn maryjane history of gestational diabetes mellitus 112850203 Z86.32 [id number] Tiffanie Flores MD [facility] [address],[place] [address] 01/20/2023 10:14:15 01/20/2023 10:44:31 [id number] Tiffanie Flores MD [facility] [address],[place] [address] 02/01/2023 11:22:12 02/01/2023 12:06:15 screening 752593367 Z36.82 [id number] Swetha Schwab [facility] [address],[place] [address] 02/01/2023 11:23:56 02/02/2023 17:42:44 screening 766082973 Z36.89 Nausea and vomiting 1693 2000 R11.2 [id number] Venkat Valdez MD [facility] [address],[place] [address] 02/18/2023 12:23:48 02/18/2023 13:10:32 Abdominal pain in 734931004 O99.891 R10.9 Z3A.14 [id number] Swetha Schwab [facility] [address],[place] [address] 03/04/2023 10:53:15 03/04/2023 11:50:57 Routine care 908571881 Z34.92 [id number] Venkat Valdez MD [facility] [address],[place] [address] 03/09/2023 11:49:22 03/09/2023 13:36:29 Spotting per vagina in 878745888 O26.859 Z3A.17 [id number] Venkat Valdez MD [facility] [address],[place] [address] 03/24/2023 09:55:15 03/24/2023 11:17:49 screening 758335273 Z36.3 [id number] [facility] [address],[place] [address] 04/02/2023 10:39:24 04/02/2023 14:40:47 Routine care 657455892 Z34.92 [id number] [facility] [address],[place] [address] 04/28/2023 17:16:58 04/28/2023 18:36:35 Routine care 368560005 Z34.92 [id number] [facility] [address],[place] [address] 05/26/2023 12:36:23 05/26/2023 13:51:10 Routine care 430097106 Z34.92 [id number] Maria T Carlton [facility] [address],[place] [address] 06/09/2023 12:25:04 06/09/2023 13:00:34 Routine care 527807577 Z34.92 [id number] Venkat Valdez MD [facility] [address],[place] [address] 06/21/2023 12:25:43 06/21/2023 13:11:46 Abdominal pain in 265134210 O99.891 R10.9 Z3A.32 [id number] Venkat Valdez MD [facility] [address],[place] [address] 06/25/2023 11:42:53 06/25/2023 12:39:59 Gestational diabetes mellitus class A2 41097772 O24.414 [id number] Maria T Carlton [facility] [address],[place] [address] 06/25/2023 11:43:21 06/25/2023 13:14:41 Routine care 915508404 Z34.92 Pruritic disorder 949704 002 L29.9 [id number] Venkat Valdez MD [facility] [address],[place] [address] 07/02/2023 11:59:27 07/02/2023 12:37:35 Gestational diabetes mellitus class A2 68174557 O24.414 [id number] Maria T Carlton [facility] [address],[place] [address] 07/02/2023 12:00:26 07/02/2023 14:15:10 Routine care 646350404 Z34.92 [id number] Venkat Valdez MD [facility] [address],[place] [address] 07/09/2023 11:54:33 07/09/2023 12:41:17 Gestational diabetes mellitus class A2 43008835 O24.414 [id number] [facility] [address],[place] [address] 07/09/2023 11:54:55 07/09/2023 13:40:47 Routine care 112029487 Z34.92 [id number] Venkat Valdez MD [facility] [address],[place] [address] 07/16/2023 11:31:37 07/16/2023 13:04:56 Gestational diabetes mellitus class A2 31724015 O24.414 [id number] [facility] [address],[place] [address] 07/16/2023 11:31:57 07/16/2023 13:50:03 Routine care 059933973 Z34.92 [id number] Venkat Valdez MD [facility] [address],[place] [address] 07/23/2023 11:55:24 07/23/2023 15:31:33 Gestational diabetes mellitus class A2 79617476 O24.414 [id number] Maria T Carlton [facility] [address],[place] [address] 07/23/2023 11:56:11 07/23/2023 14:20:32 Routine care 702163785 Z34.92 [id number] [facility] [address],[place] [address] 09/03/2023 10:37:34 09/03/2023 14:51:03 care 513138786 Z39.0 start slynd # samples given f/u wwe [id number] [facility] [address],[place] [address] 08/04/2024 14:02:09 08/05/2024 10:49:38 Screening procedure 99561382 Z13.9 Insertion of intrauterine contraceptive device 51281219 Z30.430 pt vinny well f/u one month iud check [id number] Venkat Valdez MD [facility] [address],[place] [address] 08/28/2024 14:06:50 08/28/2024 15:00:15 Pain in pelvis 89251794 R10.2 N93.9 [id number] [facility] [address],[place] [address] 08/28/2024 14:38:29 08/28/2024 14:54:07 Urinary symptoms 918102859 R39.9 [id number] [facility] [address],[place] [address] 08/30/2024 18:12:03 08/31/2024 10:12:39 Screening procedure 79954425 Z13.9 Uses IUD (intrauterine device) contraception 891031883 Z97.5 [facility] care management 193173204 Z30.9 start slynd daily, give one month to be effective f/u wwe [id number] CLAUDETTE SINGH MD [facility] [address],[place] [address] 11/08/2024 16:19:39 11/13/2024 02:55:06 Cystocele 838202489 N81.10 - patient reports worsening bulging sensation, pelvic pain during intercours e- apex and posterior compartmen t well supported on exam; grade 2 cystocele noted- recommend pelvic floor PT as first line to strengthen pelvic floor muscles- may need further evaluation from urogyn if PT does not improve symptoms Irregular intermenstrual bleeding 04827814 N92.1 - periods previously well controlled with Slynd- no inciting events- no laceration s or abrasions on exam- will evaluate with pelvic US [id number] Venkat Valdez MD [facility] [address],[place] [address] 12/01/2024 11:57:07 12/01/2024 13:25:19 Abnormal uterine bleeding 1408685169 9100 N93.9 [id number] CLAUDETTE SINGH MD [facility] [address] [address] 01/17/2025 15:22:43 01/18/2025 05:09:05 Reduced libido 9867636 R68.82 - patient reports long history of hypoactive sexual desire- symptoms present prior to pregnancie s- disruptive to relationsh ip with partner- no increased stress, no dyspareuni a- discussed no role for testostero ne supplement ation in premenopau alycia patients given risk of irreversib le side effects- discussed Mali yue, Addyi, and Vyleesi; patient would like to start Addyi therapy Dysmenorrhea 464891698 N 94.6 - patient reports periods are now regular on mini pill however still painful and heavy- pelvic US normal, no structural cause seen- suspicious for endometrio sis given cyclic heavy and painful bleeding- periods improved but not at ideal control on mini pill- Slynd not approved by insurance- will trial Orlissa for endometrio sis pain- rtc 2 months for med check [id number] KATLYN Nation [facility] [address] [address] 02/13/2025 16:23:26 02/14/2025 23:08:15 Gynecologic examination 59162306 Z01.419 WWEBC - condomsPap - done todaySTI [...] than 25 dietary consult advised. Questions answered. [id number] Venkat Valdez MD [facility] [address] [address] 06/01/2025 11:25:47 06/01/2025 12:15:53 Finding of menstrual bleeding 717266495 Z36.87 Z3A.01 [id number] [facility] [address] [address] 06/01/2025 11:26:27 06/01/2025 13:07:54 Threatened miscarriage 12560460 O20.0 f/u hcg and possible USprecauti ons reviewedf/ u pending lab resultscal l if any bleeding Health Concerns Section Related Observation LastModified by Organization Detai ls LastModified Time None Recorded Concern Status LastModified by Organization Details LastModified Time None Recorded Advance Directives Directive None Recorded Payers Insurance Date Sequence Insurance Name Policy Number Policy Horne Covered Member ID Horne Member ID Guarantor Name 06/13/2025 1 [employer] [id number] 1 Buddy Yusuf [id number] 05/02/2025 1 [facility] (MEDICAID HMO) [id number] Mariel Gilbert [id number] Notes Date Note Type Note Provider Name and Address Organization Details Recorded Time 5 text/html ROS as noted in the HPI Patient presents for discussion of irregular bleeding [...] partner. CLAUDETTE SINGH MD [address], [place], [address], [facility] 01/17/2025 23:09:50 5 text/html Annual GYNReported by PatientGenitourinary symptomsFor menstrual cycle, patient reportsnormal menses. For urinary symptoms, patient reportsno hematuriaandno incontinence. For vulva, patient reportsno genital lesion. For vagina, patient reportsnormal vaginal discharge.Breast symptomsFor breast, patient reportsno breast pain,no breast lump, andno nipple discharge.ContraceptionFo r current contraception, patient reportscondoms.Endocrine symptomsFor sexual complaints, patient reportsno sexual complaints,no pain during intercourse, andnormal libido. For menopausal symptoms, patient reportsno menopausal symptomsandnormal vaginal lubrication.Psychological symptomsFor psychological symptoms, patient reportsno depression,no anxiety, andno pmdd.Preventative measuresFor preventive measures, patient reportsencourage self breast examination,encourage regular exercise,encourage no tobacco use, andencourage regular mammograms starting age 40.29yo wwelast pap 2020 - nilmno h/o abnormal paps per pton orilissa for suspected endometriosis, symptoms have significantly improved since starting KATLYN Nation [address], [place], [address], [facility] 02/14/2025 11:42:01 5 text/html ROS as noted in the HPI pt had amenorrhea +UPThcg did not double, now on US GS 7 weeks no poleno cramping or bleeding Maria T Carlton CNM [address], [place], [address], [facility] 06/01/2025 13:02:36 OBGyn Episode Ob Episode Information Episode Created Date Number of Fetuses Patient Bloodtype Patient rh Status Prepregnancy Weight lbs Domestic Partner Domestic Partner Phone Father Name Broaching Machine Operator Status 03/05/20 20 1 CLOSED Fetus Data [...] Domestic Partner Domestic Partner Phone Father Name Broaching Machine Operator Status 03/05/20 20 1 CLOSED Fetus Data [...] Domestic Partner Domestic Partner Phone Father Name Broaching Machine Operator Status 03/05/20 20 1 CLOSED Fetus Data [...] Domestic Partner Domestic Partner Phone Father Name Broaching Machine Operator Status 03/05/20 20 1 CLOSED Fetus Data [...] Domestic Partner Domestic Partner Phone Father Name Broaching Machine Operator Status 03/05/20 20 1 CLOSED Fetus Data [...] Domestic Partner Domestic Partner Phone Father Name Broaching Machine Operator Status 02/02/20 23 1 A Positive 213 buddy Magdaleno r CLOSED Fetus Data First Name Last Name Admitted to NICU Weight (g) Sex Living Outcome Pediatric Complications Fetus ID Race Codes Race Delivery Type 3486.98 85 M true Full Term ASSISTED DELIVERY, CPAPx2 min, watcher automat long goods at delivery [id number] Vacuum Assisted Vaginal Delivery Problems Problem Notes [...] rec. Obesity: serial growth, testing.Hx shoulder dystocia: [facility] consult 36-37 wks repeat growth at 36 wks to discuss vaginal delivery safety.Subclinical hyperthyroid: repeat TSH 3r trimesterNeurology in April, consider daily magnesium supplement, PTL, pre-e precautionsPer pt: NST @ [facility] Tuesdays NST/OB at [facility] [place] [place] on Fridays Problem Name Start Date End Date Resolution Snomed Code Not e Cholestasis [id number] 07/07 - P er Scarlett with [facility] - she spoke with Dr. Dangelo and to cont ursodiol and anticipate/assume cholestasis based on presentation. Rpt labs next week before [facility] appt on 07/21. Might recommend 37-38wk del Gestational diabetes mellitus 02/18/2023 [id number] h/o gdm2A. [facility] BS QID, serial growth, testing Gestational diabetes mellitus class A2 [id number] 5u NPH AM, 5u Lispro Lunch, 15u NPH @ HS - [facility] 03/31 [facility] Isidro Calculation Initial Isidro Date Initial Exam [...] 23 12 [email or web address] 02/01/2023 08/14/20 23 4 Pre-stacey Flowsheet Flowsheet Date 02/01/2023 Guerra Score Blood Edema Fundus Height Fundus Units Glucose Ketones Leukocytes Nitrite Labor Signs Protein Cervic Dilation Cervic Effacement Cervic Station neg none none trace Type Weight in lbs Pre/Post Dialysis Refused Weight 213.957163034210 BP Diastolic BP Location Tested BP Systolic [...] Weight in lbs Pre/Post Dialysis Refused Weight 210.312185752553 BP Diastolic BP Location Tested BP Systolic [...] Weight in lbs Pre/Post Dialysis Refused Weight 207.944313418209 BP Diastolic BP Location Tested BP Systolic [...] Weight in lbs Pre/Post Dialysis Refused Weight 209.342731573061 BP Diastolic BP Location Tested BP Systolic BP Type 70 127 Fetus Heart Rate Present A 150 Fetus Movement A Yes Comments patient states that having s ome cramping and nausea. MFM mentioned breech, lga pt still does not want c/s but will talk more with them as continues. blood sugar monitored by [facility] precautions, reviewed 28 week f/u Flowsheet Date 05/26/2023 Guerra Score Blood Edema Fundus Height Fundus Units Glucose Ketones Leukocytes Nitrite Labor Signs Protein Cervic Dilation Cervic Effacement Cervic Station neg none none trace Type Weight in lbs Pre/Post Dialysis Refused Weight 212.28109376109 BP Diastolic BP Location Tested BP Systolic BP Type 75 138 Fetus Heart Rate Present A 146 Present Fetus Movement A Yes Comments patient is having excessive thirst, cramping, pressure, numbness in legs, back pain, discharge, nausea and vomiting. reviewed precautions, EFW per pt at [facility] 50%, have been changing her insulin, her [...] Weight in lbs Pre/Post Dialysis Refused Weight 212.89637758259 BP Diastolic BP Location Tested BP Systolic [...] Weight in lbs Pre/Post Dialysis Refused Weight 214.337408059446 BP Diastolic BP Location Tested BP Systolic BP Type 78 126 Fetus Heart Rate Present Fetus Movement A Yes Comments patient is having stomach pa in, back pain, cramping, discharge, swelling, nausea, vomiting, and itching. growth increased, consult at [facility], will check bile acids and start uradiol, [...] Weight in lbs Pre/Post Dialysis Refused Weight 215.851503858313 BP Diastolic BP Location Tested BP Systolic BP Type 84 124 Fetus Heart Rate Present Fetus Movement A Yes Comments patient is having itching, l eaking or discharge, cramping and nausea. bile acids wnl, ursadiol was working, came off and now itching is back all over iban back of neck and palms of hands, restart ursadiol, redraw bile acids, consider 37 week delivery, [facility] managing blood sugar, has growth us at [...] Weight in lbs Pre/Post Dialysis Refused Weight 215.644853141647 BP Diastolic BP Location Tested BP Systolic [...] Weight in lbs Pre/Post Dialysis Refused Weight 217.377656215333 BP Diastolic BP Location Tested BP Systolic [...] Weight in lbs Pre/Post Dialysis Refused Weight 218.236464598215 BP Diastolic BP Location Tested BP Systolic [...] At Estimated Date of Delivery false Thalassemia (Hebrew, Korean, Mediterranean, Or Background): MCV < 80 false Neural Tube Defect (Meningom yelocele, Spina Bifida, Or Anencephaly) false Congenital Heart Defect false Down Syndrome false Driss-Sachs (eg, Religion, Cajun, Uzbek-Afghan) f alse Mariluz Disease false Sickle Cell Disease Or Trait () false Hemophilia Or Other Blood Disorders false Muscular Dystrophy false Cystic Fibrosis false Ceres's Chorea false Intellectual Disability/Autism false If Yes, [...]
--- OUTSIDE RECORDS SUMMARY | 2025-06-15 10:08 | XMS_ITS | Encounter Summary ---
Author Organization [facility] Address [address] [place] [address] Phone Care Team Providers Care Radio Assembler Name Role Phone Mellissa Aguilar MD Unavailable [phone] Clarisse Luong APRN, INFRASTRUCTURE TECH Primary Care Provider + Pau Duvall APRN, INFRASTRUCTURE TECH Unavailable Encounter Details Date Type Department Care Team (Latest Contact Info) Description 09/06/2024 Transcribe Orders [facility] [address] [place] [address] Clarisse Luong APRN, INFRASTRUCTURE TECH [address] [place] [address] RUQ pain (Primary Dx) Social [...] quadrant documented in this encounter Care Teams Radio Assembler Relationship Specialty Start Date End Date Clarisse Luong APRN, CNP [address] [place], [place] [id number] PCP - General Advanced Practice Nurse 09/06/24 Mellissa Aguilar MD [address] [place] [address] Consulting Physician Gastroenterology 10/22/22 Pau Duvall APRN, CNP [address] [place] [address] Nurse Practitioner Advanced Practice Nurse 09/06/24 documented as of this encounter
--- OUTSIDE RECORDS SUMMARY | 2025-06-15 10:08 | XMS_ITS | Clinical Summary ---
Author Organization [facility] [employer] Address [address] [place] [address] Care Team Providers Care Activities Officer Name Role Phone Unavailable Primary Care Provider Unavailabl e Source Comments [facility] [employer],non-owned Affiliates and Associated Physician Practices is amultiple site organization consisting of ambulatory clinics and hospital sitesin [place], [place], [place] and [place]. This disclosure is being madepursuant to the Care Everywhere program and may not contain all information available regarding this patient. Last updated 18.[facility] [employer] Allergies Active Allergy Reactions Criticality Noted Date [...] Glucagon (Baqsimi One Pack) 3 MG/DOSE POWD Simpson 3 mg into the nose as needed Use in case of emergency if unable to eat or drink to treat a low blood sugar 1 Each 1 03/31/20 23 Active Continuous Blood Gluc Sensor (Dexcom G7 Sensor) MISCIndications :Insulin controlled gestational diabetes mellitus (GDM) in second trimester ([facility]) Use 1 Each as directed Apply 1 sensor q10 days 3 Each 03/31/20 Active Continuous Blood Gluc Sensor (Dexcom G7 Sensor) MISCIndications :Insulin controlled gestational diabetes mellitus (GDM) in second trimester ([facility]) Use 1 Each as needed Apply 1 new sensor q10 days 3 Each 03/31/20 Active ondansetron (Zofran) 4 MG tablet Take 1 (one) tablet by mouth every 6 hours as needed for Nausea/Vomiting Active INSULIN SYRINGE/NEEDLE U-500 31G X 6MM 0.5 ML (BD Insulin Syringe U-500) 31G X 6MM 0.5 ML MISCIndications :Insulin controlled gestational diabetes mellitus (GDM) in second trimester ([facility]) Use 1 Each 4 times daily 100 Each 3 04/07/20 23 Active Insulin Pen Needle 32G X 4 MM MISCIndications :Insulin controlled gestational diabetes mellitus (GDM) in second trimester ([facility]) Use 1 Each 4 times daily 100 [...] on file Legal 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
--- OUTSIDE RECORDS SUMMARY | 2025-06-15 10:22 | XMS_ITS | Continuity of Care Document ---
Author Organization [facility] Address [address] [facility] [address] [place] [address] Phone Care Team Providers Care Bow Tacker Name Role Phone Navas OD, Riley Unavailable Unavailable Advance Directives Directive Yes / No Effective Date File Name No Information Encounters Encounter Description Practice Location Reason(s) For Visit Diagnoses Date Provider Providers Copied on Encounter [facility], [address] [place], [place], [id number], [place] tel:[phone] [facility] No Information 1200 6 Navas OD Riley. [address], [place], [address], [place]. tel:[phone] Family History Family Member Type Diagnosis Age At Onset No Information Payers Payer name Insurance type Covered constitution party ID Authoriza tion(s) Medicaid [facility] [id number] Social History Type Description Quantity Date Captured [...]
--- NOTE | 2025-06-15 10:32 | ECG_ITS ---
Test Date: 2025-06-15 10:45:29 Measurements Intervals [place] Rate: 84 P: 186 MI: 175 QRS: 63 QRSD: 86 T: 29 QT: 369 QTc: 438 Interpretive Statements SINUS RHYTHM Electronically Signed On 06-16-2025 18:34:24 CDT by Niles Murphy M.D.
[2025-06-15] MEDS: SODIUM CHLORIDE 0.9% IV 1,000 ML 999 ML IV CONT (10:51)
[2025-06-15] MEDS: HYDROmorphone HCL INJ (*CRX) 2 MG/ML VIAL 0.5 MG IV PUSH (10:51)
--- NOTE | 2025-06-15 10:52 | ED.ABDPAIN ---
HPI - Abdominal Pain General Chief Complaint: Recheck/Abnormal Lab/Rx Stated Complaint: DNC 1 wk ago, shoulder pain, back pain, cramping Time Seen by Provider: 06/15/25 10:09 History of Present Illness HPI narrative: Patient is a 29-year-old female who presents to the ER with abdominal pain and left shoulder pain. She reports she was seen in this ER on June 07, 2025 (by this provider) and sent to the OR for a D&C by Dr. Gotti. Patient reports she was discharged home with no new prescriptions. She reports over the last 2 days her abdominal pain has increased and she has developed pain in her left shoulder. Patient reports she was advised to not take the antibiotic prescribed for her (by this MELTER SUPERVISOR) to treat her UTI after her D & C. She denies any other pertinent medical history. Patient reports she continues to have vaginal bleeding, as expected. She denies any shortness of breath, chest pain, or recent fevers. Related Data Allergies Allergy/AdvReac Type Severity Reaction Status Date / Time aspirin Allergy Unknown Nausea and Verified 06/15/25 10:14 Vomiting prednisone Allergy Rash Verified 06/15/25 10:14 Review of Systems Review of Systems: All systems reviewed & are unremarkable except as noted in HPI and below PMFSH Past Medical History Medical History History of smoking Marijuana abuse Obesity (BMI 35.0-39.9 without comorbidity) Headache Allergies Gestational diabetes Gestational hypertension Surgical History Surgical History Hx laparoscopic cholecystectomy 09/11/24 Gilberto Guerrero MD History of tonsillectomy History of appendectomy Family History Family History Grandparent Diabetes mellitus Depression Cancer Hypertension Daughter No problems noted. Father Depression Mother Depression Diverticulitis Crohn disease Social History Social History Smoking status: Former smoker Tobacco type: cigarettes Second hand tobacco smoke exposure: No Smoking end date: 11/22/18 Alcohol intake: never Substance use: never Substance use type: marijuana Do You Feel Safe in your Home?: Yes Lack of Transportation: No Lack of Food: Never True Current Housing: I Have Housing Concerned About Future Housing: No Difficulty Paying Gas/Electric Bills: No Difficulty Paying for Meds: No Currently Unemployed: No Education: High School Diploma/GED Difficulty w/ Childcare or Family Care: No Gender identity (if verbalized by the patient): Female Spiritual care concerns: No Exam Narrative: GENERAL: Well appearing, well-nourished, non-toxic, in mild distress d/t pain. HEAD: Normocephalic, atraumatic. NECK: Supple. No adenopathy, no masses. RESPIRATORY: Airway patent, respirations nonlabored. Clear to auscultation bilaterally, no rales, rhonchi, wheezing. CARDIOVASCULAR: Regular rate and rhythm without murmurs, rubs, or gallops. Peripheral pulses 2+ and equal bilaterally. ABDOMINAL: Soft, tender all four quadrants, nondistended, no hepatosplenomegaly. Normoactive BS. MUSCULOSKELETAL: Moves all extremities. Strength/ROM intact without gross deformities. SKIN: Warm, dry, normal color. No rashes. NEURO: A&O X3. Speech clear. Cranial nerves II-XII intact. No ataxic movements. PSYCHIATRIC: Appropriate mood and affect. Normal interaction. Course Vital Signs Vital signs: Vital Signs Temperature 36.6 C 06/15/25 10:10 Pulse Rate 95 06/15/25 10:10 Respiratory Rate 18 06/15/25 10:10 Blood Pressure 116/71 06/15/25 10:10 Pulse Oximetry 100 06/15/25 10:10 Oxygen Delivery Room Air 06/15/25 10:10 Temperature 36.6 C 06/15/25 10:10 Pulse Rate 83 06/15/25 12:05 Respiratory Rate 18 06/15/25 12:05 Blood Pressure 106/53 L 06/15/25 12:13 Pulse Oximetry 100 06/15/25 12:05 Oxygen Delivery Room Air 06/15/25 10:10 MDM - Abdominal Pain MDM Narrative Medical decision making narrative: Patient is a 29-year-old female who presents to the ER with abdominal pain and left shoulder pain. She reports she was seen in this ER on June 07, 2025 (by this provider) and sent to the OR for a D&C by Dr. Gotti. Patient reports she was discharged home with no new prescriptions. She reports over the last 2 days her abdominal pain has increased and she has developed pain in her left shoulder. Patient reports she was advised to not take the antibiotic prescribed for her (by this MELTER SUPERVISOR) to treat her UTI after her D & C. She denies any other pertinent medical history. Patient reports she continues to have vaginal bleeding, as expected. She denies any shortness of breath, chest pain, or recent fevers. Labs Ordered: CBC, CMP, lipase, PTT, INR, troponin, UA, lactic acid Imaging Ordered: CT abdomen pelvis Medications Ordered: 1 L normal saline IV bolus, Dilaudid 0.5 mg IV, Toradol 15mg IV Results: Patient's CBC was unremarkable. Her CMP was also unremarkable. Patient's urinalysis indicates trace leukocytes, so she will be restarted on her Macrobid. Her CT scan indicates Heart size normal. Status post cholecystectomy. The liver, spleen, pancreas, adrenal glands and kidneys are unremarkable. No renal or ureteral stone identified. Nonobstructive bowel gas pattern. No lymphadenopathy. Small corpus luteal cyst of the right ovary. No abnormal pelvic masses or fluid collections. No significant vascular abnormality. No lymphadenopathy. No free air or free fluid. No acute osseous abnormality. Diagnosis: Urinary tract infection, gas from procedure in left shoulder Consults: 1245: Spoke with OBGYN, Dr. Gotti, who advised the pain in her left shoulder could be due from her procedure. He also advised patient continue on her oral antibiotics that were prescribed last week. Differential Diagnosis Differential diagnosis: Likely abdominal pain, constipation, small bowel obstruction and other (Vaginal bleed postprocedure, postoperative air in left shoulder) Lab Data Attestation: I reviewed the patient's lab results. 06/15/25 10:44 06/15/25 10:44 Labs: Lab Results 06/15/25 06/15/25 Range/Units 10:44 10:54 WBC 6.6 (4.5-10.0) K/mm3 RBC 4.52 (4.2-5.4) M/mm3 Hgb 13.2 (12.0-15.0) g/dL Hct 40.1 (37.0-47.0) % MCV 88.7 (80-100) fl MCH 29.2 (26-34) pg MCHC 32.9 (32-36) g/dl RDW 12.7 (11.5-14.5) % Plt Count 294 (150-375) k/mm3 MPV 9.3 (7.4-10.4) fl Immature Gran % (Auto) 0.3 (0-0.5) % Neut % (Auto) 66.1 (45.5-73.1) % Lymph % (Auto) 26.3 (18.3-44.2) % [place] % (Auto) 5.3 (2.6-8.5) % Eos % (Auto) 1.2 (0-4.4) % Baso % (Auto) 0.8 (0.2-1.2) % Lymph # (Auto) 1.74 (0.9-3.2) K/mm3 [place] # (Auto) 0.4 (0.1-0.6) K/mm3 Eos # (Auto) 0.1 (0-0.3) K/mm3 Baso # (Auto) 0.1 (0.0-0.1) K/mm3 Abs Immat Gran (auto) 0.02 (0.00-0.031) K/mm3 Absolute Neuts (auto) 4.4 (1.3-6.7) K/mm3 Absolute Nucleated RBC 0.000 (0.0-0.012) K/mm3 Nucleated RBC % 0.0 (0.0-0.2) % PT 13.4 (11.1-14.7) Seconds INR 1.0 APTT 24.9 (22.3-36.8) Seconds Sodium 138 (137-145) mmol/L Potassium 3.6 (3.4-5.0) mmol/L Chloride 105 (98-107) mmol/L Carbon Dioxide 25 (22-30) mmol/L Anion Gap 8 (4-12) mmol/L BUN 13 (7-17) mg/dL Creatinine 0.75 (0.7-1.0) mg/dL Estim Creat Clear Calc 97 ml/min Estimated GFR > 60 (59 - ) Glucose 84 (65-110) mg/dL Lactic Acid 0.6 L (0.7-2.0) mmol/L Calcium 8.8 (8.4-10.2) mg/dL Total Bilirubin 0.6 (0.2-1.3) mg/dL AST 23 (14-36) U/L ALT 19 (6-35) U/L Alkaline Phosphatase 37 L (38-126) U/L Troponin I < 0.012 (0.000-0.034) ng/mL Total Protein 7.0 (6.3-8.2) g/dL Albumin 4.3 (3.5-5.1) g/dL Lipase 74 (23-300) U/L Urine Color Yellow (Yellow) Urine Appearance Turbid H (Clear) Urine pH 8.0 (5.0-9.0) Ur Specific [place] 1.023 (1.001-1.035) Urine Protein Trace (Negative) mg/dL Urine Glucose (UA) Negative (Negative) mg/dL Urine Ketones Negative (Negative) mg/dL Ur Blood (Man) Negative (Negative) Urine Nitrate Negative (Negative) Urine Bilirubin Negative (Negative) Urine Urobilinogen 1.0 (<2.0) mg/dL Leukocyte Esterase Rfl Trace H (Negative) IVONNE/UL Urine RBC 0-2 (0-2) /hpf Urine WBC 0-5 (0-3) /hpf Ur Squamous Epith Cells Few (Few) /hpf Urine Bacteria 2+ H /hpf Urine Casts 0-2 POC Urine HCG, Qual Negative (Negative) Imaging Data Attestation: I personally reviewed and interpreted this imaging study as follows: Radiologist's impression: ITS Impressions Abdomen/Pelvis CT 06/15/25 11:45 IMPRESSION: 1. No acute abdominal abnormality. Discharge Plan Discharge Clinical Impression: Acute pain of left shoulder, Abdominal pain, Vaginal bleeding Patient Disposition: Home Condition: Stable Instructions: Urinary Tract Infection in Women (ED), Abdominal Pain (ED), Dilation and Curettage (DC) Additional Instructions: Please return to the ER with any worsening symptoms. Follow-up with OBGYN as needed. Take all medications as prescribed, including regularly scheduled medications. You may use Tylenol, ibuprofen, and Pyridium for pain control. Please complete your full dose of antibiotics. Patient Language: Burmese Prescriptions: New nitrofurantoin monohyd/m-cryst [Macrobid] 100 mg capsule 100 mg PO Q12H 5 Days Qty: 10 0RF Rx Instructions: must administer with a meal/food phenazopyridine [Pyridium] 200 mg tablet 200 mg PO TID Qty: 6 0RF cyclobenzaprine 5 mg tablet 5 mg PO TID PRN (Reason: muscle spasm) Qty: 12 0RF No Action nitrofurantoin monohyd/m-cryst [Macrobid] 100 mg capsule 100 mg PO Q12H 5 Days Qty: 10 0RF Rx Instructions: must administer with a meal/food Follow-up/Referrals: Venkat Gotti MD [Physician] - (OBGYN) PHYSICIAN,PSYCHIATRIC AIDE [Primary Care Provider] - Stand Alone Forms: Work/School Release IP Time of Disposition: 13:03
[2025-06-15 10:54] LABS: Hematocrit 40.1 % (37.0-47.0); Hemoglobin 13.2 g/dL (12.0-15.0); Immature Granulocyte Percent A 0.3 % (0-0.5); Lymphocytes Absolute Auto 1.74 K/mm3 (0.9-3.2); Mean Corpuscular HGB Conc 32.9 g/dl (32-36); Mean Corpuscular Hemoglobin 29.2 pg (26-34); Mean Corpuscular Volume 88.7 fl (80-100); Nucleated Red Blood Cells Absolute Auto 0.000 K/mm3 (0.0-0.012); Nucleated Red Blood Cells Perc 0.0 % (0.0-0.2); Platelet Count Result 294 k/mm3 (150-375); Red Blood Count 4.52 M/mm3 (4.2-5.4); White Blood Count 6.6 K/mm3 (4.5-10.0)
[2025-06-15 10:57] LABS: BEDSIDEPREGUCG Negative (Negative)
[2025-06-15 11:00] LABS: Add Urine Microscopic? YES; Appearance Urine Turbid (Clear); Glucose Urine UA Negative (Negative); Leukocyte Esterase Ur Trace LEU/UL (Negative); Nitrate Urine Negative (Negative); Non Pathogenic Casts 0-2; Specific Grav Ur 1.023 (1.001-1.035)
[2025-06-15 11:03] LABS: Alanine Aminotransferase 19 U/L (6-35); Albumin Level 4.3 g/dL (3.5-5.1); Alkaline Phosphatase 37 U/L (38-126); Anion Gap 8 mmol/L (4-12); Aspartate Amino Transferase 23 U/L (14-36); Bilirubin,Total 0.6 mg/dL (0.2-1.3); Blood Urea Nitrogen 13 mg/dL (7-17); Calcium 8.8 mg/dL (8.4-10.2); Carbon Dioxide 25 mmol/L (22-30); Chloride 105 mmol/L (98-107); Estimated CRCL calculation 97 ml/min; Estimated Glomerular Filt Rate > 60; Glucose 84 mg/dL (65-110); Lipase 74 U/L (23-300); Potassium 3.6 mmol/L (3.4-5.0); Sodium 138 mmol/L (137-145); Total Protein 7.0 g/dL (6.3-8.2)
[2025-06-15 11:11] LABS: INR 1.0; Prothrombin Time 13.4 Seconds (11.1-14.7)
[2025-06-15 11:12] LABS: Partial Thromboplastin Time 24.9 Seconds (22.3-36.8)
[2025-06-15 11:15] LABS: Troponin I < 0.012 ng/mL (0.000-0.034)
[2025-06-15] MEDS: KETOROLAC 15 MG/ML VIAL (*BKC) IV PUSH (13:13)
== END 2025-06-15 13:38 | disposition home or self-care (01) ==
PROVIDERS: Emergency Provider Registered Nurse
DX: N39.0 Urinary tract infection, site not specified (principal); R10.9 Unspecified abdominal pain; N93.9 Abnormal uterine and vaginal bleeding, unspecified; G89.18 Other acute postprocedural pain; M25.512 Pain in left shoulder; Z87.891 Personal history of nicotine dependence; Z90.49 Acquired absence of other specified parts of digestive tract
CPT/HCPCS: 36415; 74177; 80053; 81001; 81025; 83605; 83690; 84484; 85025; 85610; 85730; 93005; 96361; 96374; 96375; 99284; J1171; J1885; J7030; Q9967

== ENCOUNTER 2025-10-22 15:12 | Emergency (ER) | payer OTHER, SELFPAY ==
[2025-10-22 15:22] VITALS: BP 113/80; PULSE 100; RESP 16; TEMP 36.5; O2SAT 100
--- OUTSIDE RECORDS SUMMARY | 2025-10-22 15:50 | XMS_ITS | Continuity of Care Document ---
Author Organization [facility], [facility] Address [address] [place] [address] [place] [address] Care Team Providers Care Varnish Melter Name Role Phone ZHOU SWAIN Primary Care Provider [phone] Assessment No assessment recorded. Plan of Treatment Reminders Order Date Submit Date Provider Last Modified By Organization Details Last Modified Time Details Appointments U/S OB SNEAK PEAK 2024 09:30A M ULTRASOUND Not available Not available Not available OB SCREEN 2024 10:15A M Maria T Carlton CNM Not available Not available Not available Lab None recorde d. Referral None recorde d. Procedures None recorde d. Surgeries None recorde d. Imaging US, obstetr ic, transva ginal 2024 025 [email or web address], [address], [place], [address], 10/08/2025 18:48:46 Medication Orders None recorde d. Patient TargetsNo targets recorded. Patient InstructionsNo instructions recorded. Reason for Referral None Reported. Results Created Date Observation Date Name Description Value Unit Range Abnormal Flag Note LastModifiedBy Organization Detail LastModifiedTime 10/08/2010/08/2025 CULTU RE: URINE result report SEE RESULT S BELOW Test: Cultu re: Urine Speci men Sourc e: Urine - Clean Catch Speci men Type: Urine Speci men Date: 10/08 1705 Resul t Date: 10/10 0736 Resul t Statu s: Final resul t Abnor mal: No Resul ting Lab: [facility] [address] [facility] [address] Tel: CULTU RE ----- ----- ----- --- Cultu re resul t (>=3 organ isms prese nt) indic ates possi ble conta minat ion. Repea t cultu re if sympt oms indic ate. Not Available [facility] (Lab) [address] [facility], [place], [address], 10/10/2025 08:41:21 10/08/20 25 10/08/2025 US, obste tric, trans vagin al No observ ation record ed. [email or web address], [place], [address], 10/08/2025 15:50:26 10/08/20 25 10/08/2025 US, obste tric, trans vagin al No observ ation record ed. [email or web address] [address], [place], [address], 10/08/2025 20:28:04 10/15/20 25 10/15/2025 US, obste tric, trans vagin al No observ ation record ed. [email or web address] [place] [address], [place], [address], 10/15/2025 14:43:23 10/15/20 25 10/15/2025 US, obste tric, trans vagin al No observ ation record ed. [email or web address] [address], [place], [address], 10/15/2025 15:11:39 Result Notes None recorded. Problems Name Problem SNOMED Code Status Onset Date Resolution Date Notes Provider Name and Address Organization Details Recorded Time Gestatio nal diabetes mellitus class A2 38897487 Completed 5u NPH AM, 5u Lispro Lunch, 15u NPH @ [facility] 03/31 [facility] Rosa Elena Weber [place], [place] - [facility] 3 14:52:11 Cholesta sis [id number] Completed 07/07 - Per Scarlett with MFM - she spoke with Dr. Dangelo and to cont ursodiol and anticipa te/assum e cholesta sis based on presenta tion. Rpt labs next week before MFM appt on 07/21. Might recommen d 37-38wk alena José Weber [facility] 3 14:52:12 Amenorrh ea [id number] Completed 201409/23/2021 AMENORRH EA;Pract ice ID: 0001 Emma Cordova [facility] 1 10:28:02 Speciali zed medical examinat ion Completed 201409/23/2021 Routine gynecolo gical examinat ion;Prac dante ID: 0001 Emma Cordova [facility] 1 10:31:25 Pregnanc y test positive [id number] Completed 201409/23/2021 Positive Pregnanc y Test;Pra ctice ID: 0001 Emma Cordova [facility] 10:30:38 Uterine size for dates discrepa ncy [id number] Completed 201409/23/2021 UTERINE SIZE MEG-ANTE PAR;Prac dante ID: 0001 Emma Cordova [facility], [facility] 1 10:31:47 Mild hypereme sis-not delivere d [id number] Completed 201409/23/2021 Hypereme sis gravidar um, antepart um Mild;Pra ctice ID: 0001 Emma Cordova [facility] 1 10:30:08 Nausea and vomiting [id number] Completed 201409/23/2021 Nausea with vomiting ;Practic e ID: 0001 Emma Cordova [facility] 1 10:30:09 Syncope and collapse [id number] Completed 201409/23/2021 Syncope and collapse ;Practic e ID: 0001 Emma conrad [facility] 10:31:31 Antenata l screenin g Completed 201409/23/2021 ANTENATA L SCREENIN G NEC;Prac dante ID: 0001 Emma conrad [facility] 10:28:04 Primigra parisa [id number] Completed 201409/23/2021 Supervis ion of normal first pregnanc y;Practi ce ID: 0001 Emma Cordova [facility] 10:30:56 anatomy study Completed 201409/23/2021 [facility] ANATMC SURVEY;P ractice ID: 0001 Emma Cordova [facility] 10:29:10 Complica tion of pregnanc y, childbir th and/or puerperi um [id number] Completed 201409/23/2021 OTH CURR COND-ANT EPARTUM; [facility] ID[facility] 0001 [facility] 10:28:17 Pregnanc y, childbir th and puerperi um finding Completed 201409/23/2021 Encntr for suprvsn of normal first preg, third trimeste r;Practi ce ID: 0001 [facility] 10:30:41 Urinary tract infectio us disease [id number] Completed 201409/23/2021 Urinary tract infectio n, site not specifie d;Practi ce ID: 0001 Emma Cordova [place] [facility] 10:31:42 Eruption [id number] Completed 201409/23/2021 Rash;Rec orded Elsewher e: No Locat ion: Curtis vargas [facility] S ource: [employer] Sales Representative doris: N Practi ce ID: 0001 Roel lable Time: 03:30:00 PM Emma conrad, [facility] 1 10:28:58 Pregnanc y, childbir th and puerperi um finding Completed 201409/23/2021 Oth pregnanc y related conditio ns, third trimeste r;Practi ce ID: 0001 Emma conrad, [facility] 1 10:28:13 Noninfec tious enteriti s of intestin e Completed 201409/23/2021 Gastroen teritis; Recorded Elsewher e: No Locat ion: [facility] S ource: [employer] Sales Representative doris: N Practi ce ID: 0001 Roel lable Time: 02:30:00 PM Emma conrad, [facility] 1 10:30:00 prematur e rupture of membrane s [id number] Completed 201409/23/2021 Pretrm evelin ROM, unsp time betw rupt and onst labr, 3rd tri;Prac dante ID: 0001 Emma conrad, [facility] 1 10:30:54 Lochia finding Completed 201509/23/2021 Encounte r for routine postpart um follow-u p;Record ed Elsewher e: No Locat ion: [facility] S ource: [employer] Sales Representative doris: N Practi ce ID: 0001 Roel lable Time: 01:00:00 PM Emma conrad, [facility] 1 10:30:[address] Concept Completed 201509/23/2021 Encounte r for surveill ance of other contrace ptives;R ecorded Elsewher e: No Locat ion: [facility] S ource: [employer] Sales Representative doris: N Practi ce ID: 0001 Roel lable Time: 01:00:00 PM Emma Brittontz [place] [facility] 1 10:31:20 Sexually transmit car infectio us disease [id number] Completed 201509/23/2021 STD;Romulo rded Elsewher e: No Locat ion: [facility] S ource: [employer] Sales Representative doris: N Ab ce ID: 0001 Roel lable Time: 10:30:00 AM Emma Cordova [place] [facility] 1 10:31:01 Uses combined oral contrace ption [id number] Completed 201609/23/2021 Encounte r for initial prescrip tion of contrace ptive pills;Re corded Elsewher e: No Locat ion: [facility] S ource: [employer] Sales Representative doris: Marjorie Berger ce ID: 0001 Roel lable Time: 08:30:00 AM Emma Tasha [place] [facility] 1 10:28:15 Procedur e Completed 201609/23/2021 Encounte r for checking , reinsert ion or removal of implanta ble subderma l contrace ptive;Re corded Elsewher e: No Locat ion: [facility] S ource: [employer] Representative doris: Marjorie Jairrodney ce ID: 0001 Roel lable Time: 08:30:00 AM Emma Cordova [place] [facility] 1 10:30:58 Infectio n screenin g Completed 201609/23/2021 Encounte r for screenin g for oth infec/pa rastc diseases ;Recorde d Elsewher e: No Locat ion: [facility] S ource: [employer] Sales Representative doris: Marjorie Adamrodney ce ID: 0001 Roel lable Time: 11:00:00 AM Emma Tasha [place] [facility] 1 10:29:58 Acute vaginiti s [id number] Completed 201609/23/2021 Acute vaginiti s;Record ed Elsewher e: No Locat ion: [facility] S ource: [employer] Sales Representative doris: N Jairti ce ID: 0001 Roel lable Time: 11:00:00 AM Emma conrad, [facility] 1 10:28:00 Vaginola bial hernia Completed 201609/23/2021 Other specifie d noninfla mmatory disorder s of vagina;R ecorded Elsewher e: No Locat ion: [facility] S ource: [employer] Representative doris: N Jairti ce ID: 0001 Roel lable Time: 11:00:00 AM Emma Cordova [facility], [facility] 1 10:31:49 Counseli reilly for harmful pattern of substanc e use Completed 201609/23/2021 Tobacco abuse counseli ng;Recor ded Elsewher e: No Locat ion: [facility] S ource: [employer] Representative doris: N Jairti ce ID: 0001 Roel lable Time: 11:00:00 AM Emma Cordova [facility], [facility] 10:31:[address] Concept Completed 201609/23/2021 Encntr for general adult medical exam w/o abnormal findings ;Recorde d Elsewher e: No Locat ion: [facility] S ource: [employer] Sales Representative doris: N Jairti ce ID: 0001 Roel lable Time: 11:00:00 AM Emma conrad, [facility] 1 10:31:16 Increase d frequenc y of urinatio n [id number] Completed 201609/23/2021 Frequenc y of micturit ion;Romulo rded Elsewher e: No Locat ion: [facility] S ource: [employer] Sales Representative doris: N Jairti ce ID: 0001 Roel lable Time: 11:15:00 AM Emma conrad, [facility] 1 10:29:56 Pregnanc y detectio n examinat ion Completed 201709/23/2021 Encounte r for pregnanc y test, result positive ;Recorde d Elsewher e: No Locat ion: [facility] alicia [facility] S ource: [employer] Sales Representative doris: N Practi ce ID: 0001 Roel lable Time: 02:15:00 PM Emma conrad, [facility] 1 10:30:18 Finding of regulari ty of menstrua l cycle Completed 201709/23/2021 Irregula r bleeding ;Recorde d Elsewher e: No Locat ion: [facility] S ource: [employer] Sales Representative doris: N Practi ce ID: 0001 Roel lable Time: 02:15:00 PM Emma conrad, [facility] 1 10:29:18 Cyst of ovary Completed 201709/23/2021 Unspecif ied ovarian cyst, unspecif ied side;Rec orded Elsewher e: No Locat ion: [facility] S ource: [employer] Sales Representative doris: N Practi ce ID: 0001 Roel lable Time: 11:00:00 AM Emma conrad, [facility] 1 10:28:44 Syphilis test finding [id number] Completed 201709/23/2021 Encntr screen for infectio ns w sexl mode of transmis s;Record ed Elsewher e: No Locat ion: [facility] S ource: [employer] Sales Representative doris: N Practi ce ID: 0001 Roel lable Time: 11:00:00 AM Emma conrad, [facility] [address] 10:31:[address] Concept Completed 201709/23/2021 Encntr for founder and president exam (general ) (routine ) w/o abn findings ;Recorde d Elsewher e: No Locat ion: [facility] alicia [facility] S ource: [employer] Sales Representative doris: N Jairrodney ce ID: 0001 Roel lable Time: 11:00:00 AM Emma conrad, [facility] 1 10:31:18 Body mass index 30+ - obesity [id number] Completed 201709/23/2021 Body mass index (BMI) 32.0-32. 9, adult;Re corded Elsewher e: No [facility]: [facility] doris: N Jairti ce ID: 0001 Roel lable Time: 11:00:00 AM Emma Cordova [place], [facility] 10:28:11 Finding of pattern of menstrua l cycle Completed 201709/23/2021 Excessiv e and frequent menstrua tion with irregula r cycle;Re corded Elsewher e: No [facility] doris: N Ab ce ID: 0001 Roel lable Time: 01:00:00 PM Emma conrad, [facility] 1 10:29:16 Mammogra phic calcific ation of breast [id number] Completed 201709/23/2021 Mammogra phic calcifcn found on diagnost ic imaging of breast;R ecorded Elsewher e: No [facility] doris: N Ab ce ID: 0001 Roel lable Time: 01:00:00 PM Emma conrad, [facility] 1 10:30:05 Pain in female genitali a Completed 201709/23/2021 Dysmenor jannette, unspecif ied;Romulo rded Elsewher e: No Locat ion: [facility] S ource: [facility] doris: Marjorie Berger ce ID: 0001 Roel lable Time: 01:00:00 PM Emma conrad [facility] 1 10:30:13 Depressi ve disorder [id number] Completed 201709/23/2021 Major depressi ve disorder , single episode, unspecif ied;Romulo rded Elsewher e: No Locat ion: [facility] S ource: [employer] Representative doris: N Jairti ce ID: 0001 Roel lable Time: 09:00:00 AM Emma Cordova [facility], [facility] 1 10:28:[address] Concept Completed 201709/23/2021 Anxiety disorder , unspecif ied;Romulo rded Elsewher e: No Locat ion: [facility]: N Jairti ce ID: 0001 Roel lable Time: 09:45:00 AM Emma Cordova [facility], [facility] 10:31:09 Pregnanc y test negative [id number] Completed 201709/23/2021 Encounte r for pregnanc y test, result negative ;Recorde d Elsewher e: No Locat ion: [facility] S ource: [employer] Representative doris: N Jairti ce ID: 0001 Roel lable Time: 09:45:00 AM Emma Cordova [facility], [facility] 10:30:36 Blood leukocyt e number above referenc e range [id number] Completed 201709/23/2021 Elevated white blood cell count, unspecif ied;Romulo rded Elsewher e: No Locat ion: [facility] S ource: [employer] Sales Representative doris: N Practi ce ID: 0001 Roel lable Time: 11:45:00 AM Emma Cordova [facility], [facility] 10:29:54 Pelvic and perineal pain [id number] Completed 201709/23/2021 Pelvic and perineal pain;Rec orded Elsewher e: No Locat ion: [facility] S ource: [employer] Representative doris: N Jairti ce ID: 0001 Roel lable Time: 11:15:00 AM Emma Tasha [place], [facility] 10:30:16 Dysuria [id number] Completed 201709/23/2021 Dysuria; Recorded Elsewher e: No Locat ion: Curtis vargas [facility] S ource: [employer] Sales Representative doris: N Practi ce ID: 0001 Roel lable Time: 11:45:00 AM Emma Tasha con[place], [facility] 1 10:28:56 Exposure to sexually transmis sible disorder Completed 201709/23/2021 Contact w and exposure to infect w a sexl mode of transmis s;Practi ce ID: 0001 Emma Cordova [place], [facility] 10:29:00 Gestatio n less than 9 weeks [id number] Completed 201809/23/2021 Less than 8 weeks gestatio n of pregnanc y;Record ed Elsewher e: No Locat ion: Curtis [facility] S ource: [employer] Sales Representative doris: N Practi ce ID: 0001 Roel lable Time: 08:15:00 AM Emma Tasha [place] [facility] 10:29:22 Situatio n with explicit context Completed 201809/23/2021 Suprvsn of preg w poor reprodct v or obstet hx, first tri;Romulo rded Elsewher e: No Locat ion: Curtis [facility] S ource: [employer] Representative doris: N Practi ce ID: 0001 Roel lable Time: 08:15:00 AM Emma conrad [facility] 10:31:07 Threaten ed miscarri age [id number] Completed 201809/23/2021 Threaten ed ;Recorde d Elsewher e: No Locat ion: Curtis vargas [facility] S ource: [employer] Sales Representative doris: N Practi ce ID: 0001 Roel lable Time: 10:30:00 AM Emma conrad [facility] 10:31:38 Blighted ovum [id number] Completed 201809/23/2021 Blighted ovum and nonhydat idiform mole;Rec orded Elsewher e: No Locat ion: Aliy[facility]brynn [facility] S ource: [employer] Sales Representative doris: N Ab ce ID: 0001 Roel lable Time: 10:30:00 AM Emma conrad, [facility] 10:28:08 Finding of contents of cervix [id number] Completed 201809/23/2021 Weeks of gestatio n of pregnanc y not specifie d;Record ed Elsewher e: No Locat ion: [facility] S ource: [employer] Representative doris: N Ab ce ID: 0001 Roel lable Time: 10:30:00 AM Emma conrad, [facility] 10:29:13 Normal pregnanc y in multigra parisa [id number] 63917 Completed 201809/23/2021 Encounte r for suprvsn of normal pregnanc y, second trimeste r;Record ed Elsewher e: No Locat ion: [facility] S ource: [employer] Sales Representative doris: N Ab ce ID: 0001 Roel lable Time: 05:00:00 PM Emma conrad [facility] 10:30:11 Antenata l screenin g for malforma tion Completed 201809/23/2021 Encounte r for antenata l screenin g for malforma tions;Re corded Elsewher e: No Locat ion: [facility]rynn alicia [facility] S ource: [employer] Sales Representative doris: N Ab ce ID: 0001 Roel lable Time: 10:30:00 AM Emma conrad [facility] 10:28:06 Gestatio n period, 20 weeks [id number] Completed 201809/23/2021 20 weeks gestatio n of pregnanc y;Record ed Elsewher e: No Locat ion: Curtis vargas [facility] S ource: [employer] Sales Representative doris: N Jairti ce ID: 0001 Roel lable Time: 11:30:00 AM Emma conrad, [facility] 10:29:24 Finding of trunk structur e Completed 201909/23/2021 Oth diseases and conditio ns compl preg/chl dbrth;Re corded Elsewher e: No [facility] S ource: [employer] Sales Representative doris: N Jairti ce ID: 0001 Roel lable Time: 03:15:00 PM Emma conrad, [facility] 10:31:40 Gestatio n period, 29 weeks [id number] Completed 201909/23/2021 29 weeks gestatio n of pregnanc y;Record ed Elsewher e: No Locat ion: Curtis vargas [facility] S ource: [employer] Sales Representative doris: N Jairti ce ID: 0001 Roel lable Time: 03:15:00 PM Emma conrad, [facility] 10:29:27 Gestatio n period, 30 weeks [id number] Completed 201909/23/2021 30 weeks gestatio n of pregnanc y;Record ed Elsewher e: No Locat ion: Curtis [facility] S ource: [employer] Sales Representative doris: N Jairti ce ID: 0001 Roel lable Time: 10:45:00 AM Emma conrad, [facility] 10:29:29 Uterine size for dates discrepa ncy Completed 201909/23/2021 Uterine size-neeta e discrepa ncy, second trimeste r;Record ed Elsewher e: No Locat ion: Curtis vargas [facility] S ource: [employer] Sales Representative doris: N Jairti ce ID: 0001 Roel lable Time: 10:45:00 AM Emma conrad, [facility] 10:31:[address] Concept Completed 201909/23/2021 Decrease d movement s, third trimeste r, unsp;Rec orded Elsewher e: No Locat ion: Curtis vargas [facility] S ource: [employer] Sales Representative doris: N Practi ce ID: 0001 Roel lable Time: 11:30:00 AM Emma conrad, [facility] 10:31:14 Prematur e rupture of membrane s [id number] Completed 201909/23/2021 Evelin ROM, 7th0 betw rupt & onst labr, unsp weeks of gest;Pra ctice ID: 0001 Emma conrad, [facility] 10:30:51 Gestatio n period, 32 weeks [id number] Completed 201909/23/2021 32 weeks gestatio n of pregnanc y;Record ed Elsewher e: No Locat ion: Curtis vargas [facility] S ource: [employer] Sales Representative doris: N Practi ce ID: 0001 Roel lable Time: 11:00:00 AM Emma conrad, [facility] 10:29:30 Gestatio n period, 33 weeks [id number] Completed 201909/23/2021 33 weeks gestatio n of pregnanc y;Record ed Elsewher e: No Locat ion: Curtis vargas [facility] S ource: [employer] Sales Representative doris: N Practi ce ID: 0001 Roel lable Time: 03:00:00 PM Emma conrad, [facility] 10:29:32 Gestatio n period, 34 weeks [id number] Completed 201909/23/2021 34 weeks gestatio n of pregnanc y;Record ed Elsewher e: No Locat ion: Curtis vargas [facility] S ource: [employer] Sales Representative doris: N Practi ce ID: 0001 Roel lable Time: 11:00:00 AM Emma conrad, [facility] 10:29:34 False labor before 37 complete d weeks of gestatio n [id number] Completed 201909/23/2021 False labor before 37 complete d weeks of gest, third tri;Prac dante ID: 0001 Emma conrad, [facility] 10:29:08 Gestatio n period, 35 weeks [id number] Completed 201909/23/2021 35 weeks gestatio n of pregnanc y;Record ed Elsewher e: No Locat ion: [facility] S ource: [employer] Sales Representative doris: N Practi ce ID: 0001 Roel lable Time: 11:30:00 AM Emma conrad, [facility] 10:29:36 Gestatio nal diabetes mellitus [id number] Completed 201909/23/2021 Gestatio nal diabetes in pregnanc y, insulin controll ed;Recor ded Elsewher e: No Locat ion: [facility] S ource: [employer] Sales Representative doris: N Practi ce ID: 0001 Roel lable Time: 10:30:00 AM Emma conrad, [facility] 10:29:52 Gestatio n period, 36 weeks [id number] Completed 201909/23/2021 36 weeks gestatio n of pregnanc y;Practi ce ID: 0001 Emma conrad, [facility] 10:29:38 Pregnanc y-induce d hyperten bo Completed 201909/23/2021 Gestatio nal htn w/o signific ant proteinu anais, third trimeste r;Practi ce ID: 0001 Emma conrad, [facility] 10:30:49 Gestatio n period, 37 weeks [id number] Completed 201909/23/2021 37 weeks gestatio n of pregnanc y;Record ed Elsewher e: No [facility]at [facility]: [employer] Sales Representative doris: N Practi ce ID: 0001 Roel lable Time: 10:30:00 AM Emma conrad [facility] 10:29:40 False labor at or after 37 complete d weeks of gestatio n [id number] Completed 201909/23/2021 False labor at or after 37 complete d weeks of gestatio n;Practi ce ID: 0001 Emma conrad, [facility] 10:29:06 Gestatio n period, 38 weeks [id number] Completed 201909/23/2021 38 weeks gestatio n of pregnanc y;Record ed Elsewher e: No [facility]: [facility] Manufacturing Sales Representative doris: N Practi ce ID: 0001 Roel lable Time: 10:30:00 AM Emma conrad [facility] 10:29:41 Term pregnanc y delivere d [id number] Completed 201909/23/2021 Encounte r for full-ter m uncompli cated delivery ;Practic e ID: 0001 Emma conrad, [facility] 10:31:36 Single live from singleto n pregnanc y [id number] Completed 201909/23/2021 Single live ;Pr actice ID: 0001 Emma conrad, [facility] 10:31:03 Gestatio n period, 39 weeks [id number] Completed 201909/23/2021 39 weeks gestatio n of pregnanc y;Practi ce ID: 0001 Emma conrad, [facility] 1 10:29:43 Past pregnanc y history of gestatio nal diabetes mellitus [id number] Active 2022 Tiffanie Flores MD [address], [place], [address], [facility] 3 19:36:59 Pregnanc y [id number] Completed 202208/16/2023 José Weber [facility] 3 14:52:19 Gestatio nal diabetes mellitus [id number] Completed 2022 h/o gdm2A. Checking BS QID, serial growth, antenata l testing José Weber [facility] 14:52:11 Problem Notes None recorded. Procedures Surgical History Date Name Laterality Status Provider Name and Address Organization Details Recorded Time 06/07/20 25 Dilation and Curettage completed Emily Millard [facility] 06/18/2025 14:42:30 02/14/20 25 Date of Last Pap Smear completed Tiffanie Boothe [facility] 06/01/2025 12:11:46 08/30/20 24 IUD Removal completed Maria T Carlton CNM [address], [place], [address], [facility] 08/31/2024 13:59:56 08/04/20 24 IUD Insertion completed Maria T Carlton CNM [address], [place], [place], [address], [facility] 08/05/2024 08:44:48 07/29/20 22 Hysteroscopy completed Maria T Carlton CNM [address], [place], [address], [facility] 07/29/2022 08:52:41 07/29/20 22 Hysteroscopy completed Emma Cordova [facility] 07/29/2022 08:35:27 07/21/20 22 [facility]/21/2022 12:21:30 04/17/20 20 IUD Insertion completed [facility] 04/17/2020 12:09:21 03/20/20 20 IUD Insertion completed [facility] 03/20/2020 12:11:51 11/22/19 18 Appendectomy completed [facility] 10/01/2020 19:16:40 11/22/19 14 completed Kayla Fournier [facility] 10/08/2021 16:13:03 11/22/19 14 colonoscopy completed [facility] 09/23/2021 10:34:09 11/22/19 13 Dilation and curettage completed [facility] 09/23/2021 10:34:16 11/22/19 00 tonsillectomy completed [facility] 09/23/2021 10:34:23 Imaging Results None recorded. Procedure Notes None recorded. Medical Equipment None Reported. Allergies Allergen ID Allergen Name Allergen Category Reaction Reaction Severity Criticality Documentation Date Start Date Code Code System Note Provider Name and Address Organization Details Recorded Time prednison e medicatio n Not available Not available Not available 01/05/2023 8640 RxNorm Emma conrad [facility] 3 10:49:28 2666 amoxicill in medicatio n Not available Not available Not available 10/01/2020 723 RxNorm Emma conrad [facility] 1 10:27:49 38828 aluminum aspirin Not available Not available Not available Not available 10/08/20252020 611 RxNorm unrec vandana ed react ion (text : Other , code: 85698 07) ([facility] Not Available carlos - External Data Service - prod 5 09:39:58 91 aspirin medicatio n Not available Not available Not available 03/04/2020 1191 RxNorm Caterina Aquino [place], [place] - [facility] 0 17:51:36 Medications Name Sig Start [...] Prescrib ed Elsewher e: No Locat ion: [facility] odify By: [email or web address] z Encoun ter DateTime : 04/23/20 15 11:17:56 AM Not Available Not Available Not Available ondansetr on HCl 8 mg tablet TAKE 1 TABLET BY MOUTH 2 HOURS PRIOR TO PROCEDUR E 07/29 completed Not Available Not Available Not Available promethaz ine 12.5 mg tablet Take 1 tablet 4 times a day by oral route. 04/28 completed Not Available Not Available Not Available phenazopy ridine 200 mg tablet TAKE 1 TABLET BY MOUTH THREE TIMES A DAY active Not Available Not Available No t Available metronida zole 0.75 % (37.5 mg/5 gram) vaginal gel Insert 1 applicat orful every day by vaginal route. 10/01 completed Not Available Not Available Not Available Monistat 7 2 % vaginal cream insert 1 applicat orful by vaginal route every day at bedtime 02/01 completed Prescrib ed Elsewher e: No Locat ion: [facility] odify By: raul correa DateTime : 10/10/20 15 11:00:00 AM Not Available Not Available Not Available prednison e 20 mg tablet TAKE 3 TABLETS BY MOUTH EVERY DAY FOR 5 DAYS 01/05 completed Not Available Not Available Not Available Diflucan 150 mg tablet take 1 tablet by oral route once 04/26 completed Prescrib ed Elsewher e: No Locat ion: [facility] odify By: annalisa turner DateTime : 03/29/20 [...] completed Not Available Not Available Not Available ondansetr on 8 mg disintegr ating tablet Place 1 tablet twice a day by translin gual route. 2024 active Not Available Not Available Not Avai lable Macrobid 100 mg capsule Take 1 capsule every 12 hours by oral route. 2024 active Not Available Not Available Not Avai lable Zofran 4 mg tablet Take 2 tablets [...] Prescrib ed Elsewher e: No [facility]at [facility] odify By: jacklynkshari palomo DateTime : 07/21/20 18 04:08:38 PM Not Available Not Available Not Available dicyclomi ne 20 mg tablet 10/01 completed Not Available Not Available Not Available betametha sone valerate 0.1 % topical cream apply by topical route every day a thin layer to the affected area(s) 02/01 completed Prescrib ed Elsewher e: No [facility]at [facility] odify By: raul z Encoun ter DateTime : 10/10/20 15 11:00:00 AM Not Available Not Available Not Available OneTouch Ultra Test strips Take 1 strip 4 times a day by miscell. route. 2024 active Not Available Not Available Not Avai lable dexametha sone 1 mg tablet TAKE 1 [...] Prescrib ed Elsewher e: No Locat ion: [facility] odify By: annalisa turner DateTime : 09/12/20 [...] Prescrib ed Elsewher e: No [facility] By: [email or web address] Vargas [email or web address] DateTime : 04/03/20 16 02:45:00 PM Not [...] Prescrib ed Elsewher e: No Locat ion: [facility] odify By: [email or web address] z Encoun ter DateTime : 09/02/20 15 09:21:34 AM Not Available Not Available Not Available norethind jatinder (contrace ptive) 0.35 mg tablet TAKE 1 TABLET BY MOUTH EVERY DAY 02/13 completed Not Available Not Available Not Available Zoloft 25 mg tablet take 1 tablet by oral route every day 03/29 completed Prescrib ed Elsewher e: No [facility]at [facility] odify By: [email or web address] z Encoun ter DateTime : 04/03/20 02:45:00 [...] Prescrib ed Elsewher e: No [facility]at [facility] odify By: annalisa turner DateTime : [...] completed Not Available Not Available Not Available Reglan 5 mg tablet take 1 tablet by oral route 4 times every day as needed 30 minutes before meals and at bedtime 2024 active Not Available Not Available Not Avai lable buspirone 15 mg tablet TAKE 1 TABLET BY ORAL ROUTE 3 TIMES EVERY DAY. 09/09 completed Prescrib ed Elsewher e: No [facility]at [facility] odify By: [email or web address] Vargas ncounter DateTime : 08/01/20 02:08:52 PM Not Available Not Available Not Available insulin syringe U-100 with needle 0.3 mL 30 10/01 completed Not Available Not Available Not Available insulin syringe U-100 with needle 0.3 mL 29 gauge 10/01 completed Not Available Not Available Not Available Poly-Iron 150 mg iron capsule 10/01 completed Not Available Not Available Not Available cyclobenz aprine 5 mg tablet TAKE 1 TABLET BY MOUTH THREE TIMES A DAY NEEDED active Not Available Not Available No t Available Terumo Insulin Syringe 0.3 mL 30 x 3/8 Inj 5 u NPH by HS 12/08 completed Prescrib ed Elsewher e: No [facility]at [facility] odify By: lexi correa DateTime : [...] Prescrib ed Elsewher e: No Locat ion: [facility] odify By: margaret turner DateTime : 05/28/20 11:15:00 AM Not Available Not Available Not Available Humulin N NPH U-100 Insulin KwikPen 100 unit/mL (3 mL) subcutane ous 09/03 completed Not Available Not Available Not Available Fora K11-L34-E 10-D20 strips-la ncets 30 gauge combo pack checking BS QID fasting and 1hr pp 07/21 completed Prescrib ed Elsewher e: No Locat ion: [facility] odify By: [email or web address] turner DateTime : 11/27/19 11:22:44 AM Not Available [...] Take 1 device by intraute rine route. 04/29/ 2020 08/30 /2022 completed Kyleena removal by 03/20/20 25 Not [...] Prescrib ed Elsewher e: No Locat ion: [facility] odify By: annalisa turner DateTime : 09/13/20 09:42:56 AM Not Available Not Available Not Available OneTouch Ultra Blue Test Strip 10/01 completed Not Available Not Available Not Available Orilissa 200 mg tablet active Not Available Not Available Not Available OneTouch [...] Not Available Not Available Not Available Vitals None Recorded Social History Question Answer Notes LastModified by Organizat ion Details LastModified Time Tobacco Smoking Status Former Smoker Emma Cordova [facility], [place] - [facility] 10/01/2020 15:14:21 If You Are , What Was Your Level Of Alcohol Consumption Prior To ? Occasional [email or web address] Information not available 02/01/2023 Are You Blind Or Do You Have Difficulty Seeing? No [email or web address] Information not available 09/23/2021 In The 14 Days Before Symptom Onset, Have You Had Close Contact With A Laboratory-confir med COVID-19 While That Case Was Ill? No [email or web address] Information not available 02/01/2023 In The 14 Days Before Symptom Onset, Have You Had Close Contact With A Person Who Is Under Investigation For COVID-19 While That Person Was Ill? No Information not available 02/01/2023 Have You Been To An Area Known To Be High Risk For COVID-19? No [email or web address] Information not available 02/01/2023 Are You Deaf Or Do You Have Serious Difficulty Hearing? No [email or web address] Information not available 09/23/2021 What Type Of Diet Are You Following? REGULAR [email or web address] Information not available 09/23/2021 What Was The Date Of Your Most Recent Tobacco Screening? 08/30/2024 [email or web address] Information not available 08/30/2024 Do You Use Your Seat Belt Or Car Seat Routinely? Yes [email or web address] Information not available 02/01/2023 Do You Have Smoke And Carbon Monoxide Detectors In Your Home? Yes [email or web address] Information not available 02/01/2023 How Much Tobacco Do You Smoke? No [email or web address] Information not available 05/21/2020 Do You Use Sunscreen Routinely? Yes [email or web address] Information not available 02/01/2023 Has Tobacco Cessation Counseling Been Provided? No [email or web address] Information not available 02/01/2023 Do You Have Difficulty Walking Or Climbing Stairs? No [email or web address] Information not available 07/21/2022 Sex: Unknown Functional Status Question Answer Note LastModified by Organizat ion Details LastModified Time Do you use any illicit or recreational drugs? No [email or web address] Information not available 02/01/2023 Do you or have you ever used any other forms of tobacco or nicotine? No [email or web address] Information not available 02/01/2023 What is your level of alcohol consumption? None [email or web address] Information not available 02/01/2023 Do you or have you ever used smokeless tobacco? Never used smokeless tobacco [email or web address] Information not available 05/21/2020 Are you able to walk independently without assistance or assistive devices? YESWOREST [email or web address] Information not available 09/23/2021 Are you able to care for yourself independently? Yes [email or web address] Information not available 07/21/2022 Do you have difficulty dressing, bathing, grooming, or toileting? No [email or web address] Information not available 07/21/2022 Do you or have you ever used e-cigarettes or vape? Never used electronic cigarettes Information not available 05/21/2020 What is your exercise level? Occasional walking [email or web address] Information not available 03/05/2020 Mental Status Question Answer Note LastModified by Organization D etails LastModified Time Do you feel stressed (tense, restless, nervous, or anxious, or unable to sleep at night)? [id number] [email or web address] Information not available 02/01/2023 Family History Relationship [...] Last Mammogram Flow Moderate Date of LMP 08/25/2025 Was last menstrual period normal N STIs/STDs [...] Sexual Problems? N Desired Control Method LMP Definite 11/22/2013 Obstetrics History GPAL:G 7 P 3 0 4 3 Type Value Full Term 3 Spontaneous 4 Living 3 Total 7 Past Encounters Encounter ID Performer Location Encounter Start Date Encounter Closed Date Diagnosis/Indication Diagnosis SNOMED-CT Code Diagnosis ICD10 Code Diagnosis IMO Codes Diagnosis Note [id number] Venkat Gotti MD [place] [address] [address] 10/08/2025 10:54:40 10/08/2025 11:44:42 Threatened miscarriage 67521202 O20.0 Z3A.01 87371 Health Concerns Section Related Observation LastModified by Organization Detai ls LastModified Time None Recorded Concern Status LastModified by Organization Details LastModified Time None Recorded Payers Encounter Date Sequence Insurance Name Policy Number Policy Horne Covered Member ID Horne Member ID Guarantor Name 10/08/2025 1 [employer] [id number] Buddy Cuetoliz [id number] OBGyn Episode No OBEpisode recorded.
--- OUTSIDE RECORDS SUMMARY | 2025-10-22 15:50 | XMS_ITS | Continuity of Care Document ---
Author Organization [facility] Address [address] [place] [address] Care Team Providers Care Hearing Aid Mechanic Name Role Phone CHASITYVALENTE ZHOU Primary Care Provider [phone] Assessment No assessment recorded. Plan of Treatment [...] recorde d. Surgeries None recorde d. Imaging None recorde d. Medication Orders OneTouc h Ultra Test strips 2024 025 [facility]/Pharmacy #[id number], [address] [place], [address], 10/15/2025 14:52:18 Macrobi d 100 mg capsule 2024 025 [facility]/Pharmacy #[id number], [address] [place], [address], 10/15/2025 14:42:52 Patient TargetsNo targets recorded. Patient InstructionsNo instructions [...] t Abnor mal: No Resul ting Lab: [facility] [address] [facility] [address] Tel: CULTU RE ----- ----- ----- --- Cultu re resul t (>=3 organ isms prese nt) indic ates possi ble conta minat ion. Repea t cultu re if sympt oms indic ate. Not Available [facility] (Lab) [address], [place], [address], 10/10/2025 08:41:21 10/08/20 25 10/08/2025 US, obste tric, trans vagin al No observ ation record ed. [email or web address] [place] [address], [place], [address], 10/08/2025 15:50:26 10/08/20 25 10/08/2025 US, obste tric, trans vagin al No observ ation record ed. [email or web address] [address] [address], [place], [address], 10/08/2025 20:28:04 10/15/20 25 10/15/2025 US, obste tric, trans vagin al No observ ation record ed. [email or web address] [address] [place] [address], [place], [address], 10/15/2025 14:43:23 10/15/20 25 10/15/2025 US, obste tric, trans vagin al No observ ation record ed. [email or web address] [address] [address], [place], [address], 10/15/2025 15:11:39 Result Notes None recorded. Problems Name Problem SNOMED Code Status Onset Date Resolution Date Notes Provider Name and Address Organization Details Recorded Time Gestatio nal diabetes mellitus class A2 81840590 Completed 5u NPH AM, 5u Lispro Lunch, 15u NPH @ [facility] - [facility] 03/31 [facility] 14:52:11 Cholesta sis [id number] Completed 07/07 - Per Scarlett with MFM - she spoke with Dr. Dangelo and to cont ursodiol and anticipa te/assum e cholesta sis based on presenta tion. Rpt labs next week before MFM appt on 07/21. Might recommen d 37-38wk del José Weber [facility] 3 14:52:12 Amenorrh ea [id number] Completed 201409/23/2021 AMENORRH EA;Pract ice ID: 0001 Emma Cordova [facility], [facility] 10:28:02 Speciali d medical examinat ion Completed 201409/23/2021 Routine gynecolo gical examinat ion;Prac dante ID: 0001 Emma Cordova [facility], [facility] 10:31:25 Pregnanc y test positive [id number] Completed 201409/23/2021 Positive Pregnanc y Test;Pra ctice ID: 0001 Emma Cordova [facility], [facility] 10:30:38 Uterine size for dates discrepa ncy [id number] Completed 201409/23/2021 UTERINE SIZE MEG-ANTE PAR;Prac dante ID: 0001 Emma Cordova [facility], [facility] 10:31:47 Mild hypereme sis-not delivere d [id number] Completed 201409/23/2021 Hypereme sis gravidar um, antepart um Mild;Pra ctice ID: 0001 Emma Cordova [facility], [facility] 10:30:08 Nausea and vomiting [id number] Completed 201409/23/2021 Nausea with vomiting ;Practic e ID: 0001 [facility] 10:30:09 Syncope and collapse [id number] Completed 201409/23/2021 Syncope and collapse ;Practic e ID: 0001 Emma conrad [facility] 10:31:31 Antenata l screenin g Completed 201409/23/2021 ANTENATA L SCREENIN G NEC;Prac dante ID: 0001 Emmapat Cordova [facility] 10:28:04 Primigra parisa [id number] Completed 201409/23/2021 Supervis ion of normal first pregnanc y;Practi ce ID: 0001 Emma Cordova [facility] 10:30:56 anatomy study Completed 201409/23/2021 [facility];P ractice ID: 0001 Emma Cordova [facility] 10:29:10 Complica tion of pregnanc y, childbir th and/or puerperi um [id number] Completed 201409/23/2021 OTH CURR COND-ANT EPARTUM; Practice ID: 0001 Emma Cordova [facility] 10:28:17 Pregnanc y, childbir th and puerperi um finding Completed 201409/23/2021 Encntr for suprvsn of normal first preg, third trimeste r;Practi ce ID: 0001 Emma Cordova [facility] 10:30:41 Urinary tract infectio us disease [id number] Completed 201409/23/2021 Urinary tract infectio n, site not specifie d;Practi ce ID: 0001 Emma conrad, [facility] 1 10:31:42 Eruption [id number] Completed 201409/23/2021 Rash;Rec orded Elsewher e: No [facility] EHR Chemistry Teacher doris: N Practi ce ID: 0001 Roel lable Time: 03:30:00 PM Emma conrad, [facility] 1 10:28:58 Pregnanc y, childbir th and puerperi um finding Completed 201409/23/2021 Oth pregnanc y related conditio ns, third trimeste r;Practi ce ID: 0001 Emma conrad, [facility] 1 10:28:13 Noninfec tious enteriti s of intestin e Completed 201409/23/2021 Gastroen teritis; Recorded Elsewher e: No Locat ion: [facility] S ource: EHR Chemistry Teacher doris: N Practi ce ID: 0001 Roel lable Time: 02:30:00 PM Emma conrad, [facility] 1 10:30:00 prematur e rupture of membrane s [id number] Completed 201409/23/2021 Pretrm evelin ROM, unsp time betw rupt and onst labr, 3rd tri;Prac dante ID: 0001 Emma conrad, [facility] 1 10:30:54 Lochia finding Completed 201509/23/2021 Encounte r for routine postpart um follow-u p;Record ed Elsewher e: No [facility] EHR Chemistry Teacher doris: N Practi ce ID: 0001 Roel lable Time: 01:00:00 PM Emma Cordova [place], [facility] 1 10:30:[address] Concept Completed 201509/23/2021 Encounte r for surveill ance of other contrace ptives;R ecorded Elsewher e: No [facility] S ource: EHR Chemistry Teacher doris: N Ab ce ID: 0001 Roel lable Time: 01:00:00 PM Emma ocnrad, [facility] 1 10:31:20 Sexually transmit car infectio us disease [id number] Completed 201509/23/2021 STD;Romulo rded Elsewher e: No Locat ion: [facility] S ource: EHR Chemistry Teacher doris: N Jairti ce ID: 0001 Roel lable Time: 10:30:00 AM Emma Cordova [place], [facility] 10:31:01 Uses combined oral contrace ption [id number] Completed 201609/23/2021 Encounte r for initial prescrip tion of contrace ptive pills;Re corded Elsewher e: No [facility]: EHR Chemistry Teacher doris: N Practi ce ID: 0001 Roel lable Time: 08:30:00 AM Emma Cordova [place], [facility] 10:28:15 Procedur e Completed 201609/23/2021 Encounte r for checking , reinsert ion or removal of implanta ble subderma l contrace ptive;Re corded Elsewher e: No Locat ion: [facility] S ource: EHR Chemistry Teacher doris: N Practi ce ID: 0001 Roel lable Time: 08:30:00 AM Emma Cordova [place] [facility] 1 10:30:58 Infectio n screenin g Completed 201609/23/2021 Encounte r for screenin g for oth infec/pa rastc diseases ;Recorde d Elsewher e: No Locat ion: [facility] S ource: EHR Chemistry Teacher doris: N Jairti ce ID: 0001 Roel lable Time: 11:00:00 AM Emma Cordova [facility], [facility] 1 10:29:58 Acute vaginiti s [id number] Completed 201609/23/2021 Acute vaginiti s;Record ed Elsewher e: No Locat ion: [facility] S ource: EHR Chemistry Teacher doris: N Jairti ce ID: 0001 Roel lable Time: 11:00:00 AM Emma Cordova [facility], [facility] 1 10:28:00 Vaginola bial hernia Completed 201609/23/2021 Other specifie d noninfla mmatory disorder s of vagina;R ecorded Elsewher e: No Locat ion: [facility] S ource: EHR Chemistry Teacher doris: N Jairti ce ID: 0001 Roel lable Time: 11:00:00 AM Emma Cordova [facility] 1 10:31:49 Counseli ng for harmful pattern of substanc e use Completed 201609/23/2021 Tobacco abuse counseli ng;Recor ded Elsewher e: No Locat ion: [facility] S ource: EHR Chemistry Teacher doris: N Jairti ce ID: 0001 Roel lable Time: 11:00:00 AM Emma Cordova [facility], [facility] [address] 10:31:[address] Concept Completed 201609/23/2021 Encntr for general adult medical exam w/o abnormal findings ;Recorde d Elsewher e: No Locat ion: [facility] S ource: EHR Chemistry Teacher doris: N Jairti ce ID: 0001 Roel lable Time: 11:00:00 AM Emma Brittontz [facility], [facility] 1 10:31:16 Increase d frequenc y of urinatio n [id number] Completed 201609/23/2021 Frequenc y of micturit ion;Romulo rded Elsewher e: No Locat ion: [facility]am alicia [facility] S ource: EHR Chemistry Teacher doris: N Jairti ce ID: 0001 Roel lable Time: 11:15:00 AM Emma conrad, [facility] 1 10:29:56 Pregnanc y detectio n examinat ion Completed 201709/23/2021 Encounte r for pregnanc y test, result positive ;Recorde d Elsewher e: No Locat ion: [facility] S ource: EHR Chemistry Teacher doris: N Jairti ce ID: 0001 Roel lable Time: 02:15:00 PM Emma conrad, [facility] 1 10:30:18 Finding of regulari ty of menstrua l cycle Completed 201709/23/2021 Irregula r bleeding ;Recorde d Elsewher e: No [facility] our[facility]: EHR Chemistry Teacher doris: N Jairti ce ID: 0001 Roel lable Time: 02:15:00 PM Emma conrad, [facility] 1 10:29:18 Cyst of ovary Completed 201709/23/2021 Unspecif ied ovarian cyst, unspecif ied side;Rec orded Elsewher e: No [facility]: EHR Chemistry Teacher doris: Marjorie Adamti ce ID: 0001 Roel lable Time: 11:00:00 AM Emma conrad, [facility] 1 10:28:44 Syphilis test finding [id number] Completed 201709/23/2021 Encntr screen for infectio ns w sexl mode of transmis s;Record ed Elsewher e: No Locat ion: [facility] S ource: EHR Chemistry Teacher doris: N Jairti ce ID: 0001 Roel lable Time: 11:00:00 AM Emma conrad [facility] [address] 10:31:[address] Concept Completed 201709/23/2021 Encntr for clinical psychologist licensed exam (general ) (routine ) w/o abn findings ;Recorde d Elsewher e: No Locat ion: Curtis vargas [facility] S ource: [facility] doris: N Ab ce ID: 0001 Role lable Time: 11:00:00 AM Emma Cordova [facility] 1 10:31:18 Body mass index 30+ - obesity [id number] Completed 201709/23/2021 Body mass index (BMI) 32.0-32. 9, adult;Re corded Elsewher e: No Locat ion: [facility] alicia [facility] S ource: [facility] doris: N Ab ce ID: 0001 Roel lable Time: 11:00:00 AM Emma Cordova [facility], [facility] 10:28:11 Finding of pattern of menstrua l cycle Completed 201709/23/2021 Excessiv e and frequent menstrua tion with irregula r cycle;Re corded Elsewher e: No Locat ion: Edith alicia [facility] S ource: [facility] doris: N Ab ce ID: 0001 Roel lable Time: 01:00:00 PM Emma conrad [facility] 10:29:16 Mammogra phic calcific ation of breast [id number] Completed 201709/23/2021 Mammogra phic calcifcn found on diagnost ic imaging of breast;R ecorded Elsewher e: No Locat ion: [facility] S ource: [facility] doris: N Jairti ce ID: 0001 Roel lable Time: 01:00:00 PM Emma Cordova [place] [facility] 1 10:30:05 Pain in female genitali a Completed 201709/23/2021 Dysmenor jannette, unspecif ied;Romulo rded Elsewher e: No [facility] our[facility]: EHR Chemistry Teacher doris: N Jairti ce ID: 0001 Roel lable Time: 01:00:00 PM Emma Brittontz [facility], [facility] 1 10:30:13 Depressi ve disorder [id number] Completed 201709/23/2021 Major depressi ve disorder , single episode, unspecif ied;Romulo rded Elsewher e: No Locat ion: [facility] S ource: EHR Chemistry Teacher doris: N Jairti ce ID: 0001 Roel lable Time: 09:00:00 AM Emma Cordova [facility] [address] 10:28:[address] Concept Completed 201709/23/2021 Anxiety disorder , unspecif ied;Romulo rded Elsewher e: No Locat ion: [facility] N Ab ce ID: 0001 Roel lable Time: 09:45:00 AM Emma Cordova [facility] 1 10:31:09 Pregnanc y test negative [id number] Completed 201709/23/2021 Encounte r for pregnanc y test, result negative ;Recorde d Elsewher e: No Locat ion: [facility] S ource: EHR Chemistry Teacher doris: N Jairti ce ID: 0001 Roel lable Time: 09:45:00 AM Emma Cordova [facility] 1 10:30:36 Blood leukocyt e number above referenc e range [id number] Completed 201709/23/2021 Elevated white blood cell count, unspecif ied;Romulo rded Elsewher e: No Locat ion: [facility] S ource: EHR Chemistry Teacher doris: N Jairti ce ID: 0001 Roel lable Time: 11:45:00 AM Emma Cordova [facility] 1 10:29:54 Pelvic and perineal pain [id number] Completed 201709/23/2021 Pelvic and perineal pain;Rec orded Elsewher e: No [facility] S ource: EHR Chemistry Teacher doris: N Practi ce ID: 0001 Roel lable Time: 11:15:00 AM Emma conrad [facility] 10:30:16 Dysuria [id number] Completed 201709/23/2021 Dysuria; Recorded Elsewher e: No [facility]: N Practi ce ID: 0001 Roel lable Time: 11:45:00 AM Emma conrad, [facility] 10:28:56 Exposure to sexually transmis sible disorder Completed 201709/23/2021 Contact w and exposure to infect w a sexl mode of transmis s;Practi ce ID: 0001 Emma conrad, [facility] 1 10:29:00 Gestatio n less than 9 weeks [id number] Completed 201809/23/2021 Less than 8 weeks gestatio n of pregnanc y;Record ed Elsewher e: No [facility]: N Practi ce ID: 0001 Roel lable Time: 08:15:00 AM Emma conrad [facility] 1 10:29:22 Situatio n with explicit context Completed 201809/23/2021 Suprvsn of preg w poor reprodct v or obstet hx, first tri;Romulo rded Elsewher e: No Locat ion: [facility] S ource: EHR Chemistry Teacher doris: N Practi ce ID: 0001 Roel lable Time: 08:15:00 AM Emma conrad [facility] 1 10:31:07 Threaten ed miscarri age [id number] Completed 201809/23/2021 Threaten ed ;Recorde d Elsewher e: No Locat ion: [facility]nn alicia [facility] S ource: EHR Chemistry Teacher doris: N Jairti ce ID: 0001 Roel lable Time: 10:30:00 AM Emma conrad [facility] 10:31:38 Blighted ovum [id number] Completed 201809/23/2021 Blighted ovum and nonhydat idiform mole;Rec orded Elsewher e: No [facility] S ource: EHR Chemistry Teacher doris: N Jairti ce ID: 0001 Roel lable Time: 10:30:00 AM Emma conrad, [facility] 10:28:08 Finding of contents of cervix [id number] Completed 201809/23/2021 Weeks of gestatio n of pregnanc y not specifie d;Record ed Elsewher e: No [facility]: EHR Chemistry Teacher doris: N Jairti ce ID: 0001 Roel lable Time: 10:30:00 AM Emma conrad, [facility] 10:29:13 Normal pregnanc y in multigra parisa [id number] Completed 201809/23/2021 Encounte r for suprvsn of normal pregnanc y, second trimeste r;Record ed Elsewher e: No [facility] S ource: EHR Chemistry Teacher doris: N Jairti ce ID: 0001 Roel lable Time: 05:00:00 PM Emma conrad [facility] 10:30:11 Antenata l screenin g for malforma tion Completed 201809/23/2021 Encounte r for antenata l screenin g for malforma tions;Re corded Elsewher e: No Locat ion: [facility]nn alicia [facility] S ource: EHR Chemistry Teacher doris: N Jairti ce ID: 0001 Roel lable Time: 10:30:00 AM Emma conrad [facility] 10:28:06 Gestatio n period, 20 weeks [id number] Completed 201809/23/2021 20 weeks gestatio n of pregnanc y;Record ed Elsewher e: No Locat ion: Curtis vargas [facility] S ource: EHR Chemistry Teacher doris: N Jairti ce ID: 0001 Roel lable Time: 11:30:00 AM Emma conrad [facility] 10:29:24 Finding of trunk structur e Completed 201909/23/2021 Oth diseases and conditio ns compl preg/chl dbrth;Re corded Elsewher e: No Locat ion: Curtis vargas [facility] S ource: EHR Chemistry Teacher doris: N Jairti ce ID: 0001 Roel lable Time: 03:15:00 PM Emma conrad [facility] 1 10:31:40 Gestatio n period, 29 weeks [id number] Completed 201909/23/2021 29 weeks gestatio n of pregnanc y;Record ed Elsewher e: No Locat ion: [facility] S ource: EHR Chemistry Teacher doris: N Jairti ce ID: 0001 Roel lable Time: 03:15:00 PM Emma conrad [facility] 1 10:29:27 Gestatio n period, 30 weeks [id number] Completed 201909/23/2021 30 weeks gestatio n of pregnanc y;Record ed Elsewher e: No [facility] S ource: EHR Chemistry Teacher doris: N Practi ce ID: 0001 Roel lable Time: 10:45:00 AM Emma conrad [facility] 1 10:29:29 Uterine size for dates discrepa ncy Completed 201909/23/2021 Uterine size-neeta e discrepa ncy, second trimeste r;Record ed Elsewher e: No Locat ion: Curtis vargas [facility] S ource: EHR Chemistry Teacher doris: N Jairti ce ID: 0001 Roel lable Time: 10:45:00 AM Emma conrad, [facility] 1 10:31:[address] Concept Completed 201909/23/2021 Decrease d movement s, third trimeste r, unsp;Rec orded Elsewher e: No Locat ion: Curtis vargas [facility] S ource: EHR Chemistry Teacher doris: N Jairti ce ID: 0001 Roel lable Time: 11:30:00 AM Emma conrad, [facility] 1 10:31:14 Prematur e rupture of membrane s [id number] Completed 201909/23/2021 Evelin ROM, 7th0 betw rupt & onst labr, unsp weeks of gest;Pra ctice ID: 0001 Emma Cordova [facility], [facility] 10:30:51 Gestatio n period, 32 weeks [id number] Completed 201909/23/2021 32 weeks gestatio n of pregnanc y;Record ed Elsewher e: No Locat ion: Curtis vargas [facility] S ource: EHR Chemistry Teacher doris: N Practi ce ID: 0001 Roel lable Time: 11:00:00 AM Emma conrad, [facility] 1 10:29:30 Gestatio n period, 33 weeks [id number] Completed 201909/23/2021 33 weeks gestatio n of pregnanc y;Record ed Elsewher e: No Locat ion: Curtis vargas [facility] S ource: EHR Chemistry Teacher doirs: N Jairti ce ID: 0001 Roel lable Time: 03:00:00 PM Emma conrad, [facility] 1 10:29:32 Gestatio n period, 34 weeks [id number] Completed 201909/23/2021 34 weeks gestatio n of pregnanc y;Record ed Elsewher e: No Locat ion: [facility] S ource: EHR Chemistry Teacher doirs: N Practi ce ID: 0001 Roel lable Time: 11:00:00 AM Emma conrad, [facility] 10:29:34 False labor before 37 complete d weeks of gestatio n [id number] Completed 201909/23/2021 False labor before 37 complete d weeks of gest, third tri;Prac dante ID: 0001 Emma conrad, [facility] 10:29:08 Gestatio n period, 35 weeks [id number] Completed 201909/23/2021 35 weeks gestatio n of pregnanc y;Record ed Elsewher e: No [facility] our[facility]: EHR Chemistry Teacher doris: N Practi ce ID: 0001 Roel lable Time: 11:30:00 AM Emma conrad [facility] 10:29:36 Gestatio nal diabetes mellitus [id number] Completed 201909/23/2021 Gestatio nal diabetes in pregnanc y, insulin controll ed;Recor ded Elsewher e: No Locat ion: [facility] S ource: EHR Chemistry Teacher doris: N Practi ce ID: 0001 Roel lable Time: 10:30:00 AM Emma conrad [facility] 10:29:52 Gestatio n period, 36 weeks [id number] Completed 201909/23/2021 36 weeks gestatio n of pregnanc y;Practi ce ID: 0001 Emma conrad, [facility] 10:29:38 Pregnanc y-induce d hyperten bo Completed 201909/23/2021 Gestatio nal htn w/o signific ant proteinu anais, third trimeste r;Practi ce ID: 0001 Emma conrad, [facility] 10:30:49 Gestatio n period, 37 weeks [id number] Completed 201909/23/2021 37 weeks gestatio n of pregnanc y;Record ed Elsewher e: No Locat ion: Curtis vargas [facility] S ource: EHR Chemistry Teacher doris: N Practi ce ID: 0001 Roel lable Time: 10:30:00 AM Emma conrad [facility] 10:29:40 False labor at or after 37 complete d weeks of gestatio n [id number] Completed 201909/23/2021 False labor at or after 37 complete d weeks of gestatio n;Practi ce ID: 0001 Emma conrad, [facility] 10:29:06 Gestatio n period, 38 weeks [id number] Completed 201909/23/2021 38 weeks gestatio n of pregnanc y;Record ed Elsewher e: No Locat ion: [facility] S ource: EHR Chemistry Teacher doris: N Practi ce ID: 0001 Roel lable Time: 10:30:00 AM Emma conrad [facility] 10:29:41 Term pregnanc y delivere d [id number] Completed 201909/23/2021 Encounte r for full-ter m uncompli cated delivery ;Practic e ID: 0001 Emma conrad [facility] 10:31:36 Single live from singleto n pregnanc y [id number] Completed 201909/23/2021 Single live ;Pr actice ID: 0001 Emma conrad, [facility] 10:31:03 Gestatio n period, 39 weeks [id number] Completed 201909/23/2021 39 weeks gestatio n of pregnanc y;Practi ce ID: 0001 Emma Cordova [place], [facility] 10:29:43 Past pregnanc y history of gestatio nal diabetes mellitus [id number] Active 2022 Tiffanie Flores MD [address], [place], [address], [facility] 3 19:36:59 Pregnanc y [id number] Completed 202208/16/2023 José Weber [facility] 14:52:19 Gestatio nal diabetes mellitus [id number] Completed 2022 h/o gdm2A. Checking BS QID, serial growth, antenata l testing José Weber [facility] 14:52:11 Problem Notes None recorded. Procedures Surgical History Date Name Laterality Status Provider Name and Address Organization Details Recorded Time 06/07/20 25 Dilation and Curettage completed Emily Millard [facility] 06/18/2025 14:42:30 02/14/20 25 Date of Last Pap Smear completed Tiffanie Boothe [facility] 06/01/2025 12:11:46 08/30/20 24 IUD Removal completed Maria T Carlton CNM [address], [place], [address], [facility] 08/31/2024 13:59:56 08/04/20 24 IUD Insertion completed Maria T Carlton CNM [address], [place], [address], [facility] 08/05/2024 08:44:48 07/29/20 22 Hysteroscopy completed Maria T Carlton CNM [address], [place], [address], [facility] 07/29/2022 08:52:41 07/29/20 22 Hysteroscopy completed Emma Cordova [facility] 07/29/2022 08:35:27 07/21/20 22 IUD Removal completed Swetha Durhamsudhakar [facility] 07/21/2022 12:21:30 04/17/20 20 [facility] 12:09:21 03/20/20 20 [facility] 03/20/2020 12:11:51 11/22/19 18 Appendectomy completed Emma Cordova [facility] 10/01/2020 19:16:40 11/22/19 14 completed Kayla Fournier [facility] 10/08/2021 16:13:03 11/22/19 14 colonoscopy completed Emma Cordova [facility] 09/23/2021 10:34:09 11/22/19 13 Dilation and curettage completed Emmapat Cordova [facility] 09/23/2021 10:34:16 11/22/19 00 tonsillectomy completed Emmapat Cordova [facility] 09/23/2021 10:34:23 Imaging Results None recorded. Procedure Notes None recorded. Medical Equipment None Reported. Allergies Allergen ID Allergen Name Allergen Category Reaction Reaction Severity Criticality Documentation Date Start Date Code Code System Note Provider Name and Address Organization Details Recorded Time prednison e medicatio n Not available Not available Not available 01/05/2023 8640 RxNorm Emma Cordova [facility] 10:49:28 2666 amoxicill in medicatio n Not available Not available Not available 10/01/2020 723 RxNorm Emma Cordova [facility], [facility] 1 10:27:49 45474 aluminum aspirin Not available Not available Not available Not available 10/08/20252020 611 RxNorm unrec ogniz ed react ion (text : Other , code: 00141 [id number]) (from [facility]) Not Available [employer] - External Data Service - prod 5 09:39:58 91 aspirin medicatio n Not available Not available Not available 03/04/2020 1191 RxNorm Caterina Aquino [facility], [facility] 0 17:51:36 Medications Name [...] Prescrib ed Elsewher e: No [facility] odify By: raul z Encoun ter DateTime [...] Elsewher e: No Locat ion: Curtis vargas [facility] odify By: raul z Encoun ter DateTime : 10/10/20 15 11:00:00 AM Not Available Not Available Not Available prednison e 20 mg tablet TAKE 3 TABLETS BY MOUTH EVERY DAY FOR 5 DAYS 01/05 completed Not Available Not Available Not Available Diflucan 150 mg tablet take 1 tablet by oral route once 04/26 completed Prescrib ed Elsewher e: No [facility]at [facility] By: annalisa turner DateTime : [...] Prescrib ed Elsewher e: No Locat ion: [facility] odify By: [email or web address] Vargas ncounter DateTime : 07/21/20 18 04:08:38 PM Not Available Not Available Not Available dicyclomi ne 20 mg tablet 10/01 completed Not Available Not Available Not Available betametha sone valerate 0.1 % topical cream apply by topical route every day a thin layer to the affected area(s) 02/01 completed Prescrib ed Elsewher e: No Locat ion: [facility] odify By: [email or web address] z Encoun ter DateTime [...] Prescrib ed Elsewher e: No Locat ion: [facility] odify By: annalisa turner DateTime : 09/12/20 [...] Prescrib ed Elsewher e: No Locat ion: [facility] odify By: jill palomo DateTime : 04/03/20 [...] Prescrib ed Elsewher e: No Locat ion: [facility] odify By: raul z Ethel correa DateTime : 09/02/20 15 09:21:34 AM Not Available Not Available Not Available norethind jatinder (contrace ptive) 0.35 mg tablet TAKE 1 TABLET BY MOUTH EVERY DAY 02/13 completed Not Available Not Available Not Available Zoloft 25 mg tablet take 1 tablet by oral route every day 03/29 completed Prescrib ed Elsewher e: No Locat ion: Aliyahmyriam alicia [facility] odify By: [email or web address] z Encoun ter DateTime : 04/03/20 16 02:45:00 PM Not [...] Prescrib ed Elsewher e: No Locat ion: [facility] odify By: annalisa turner DateTime : 09/09/20 [...] Prescrib ed Elsewher e: No Locat ion: [facility] odify By: senait palomo DateTime : 08/01/20 18 02:08:52 PM Not Available Not Available Not Available insulin syringe U-100 with needle 0.3 mL 30 10/01 completed Not Available Not Available Not Available insulin syringe U-100 with needle 0.3 mL 29 gauge 11/10 /2020 completed Not Available Not Available Not Available [...] Prescrib ed Elsewher e: No Locat ion: [facility] odify By: lexi correa DateTime : 12/08/19 [...] Prescrib ed Elsewher e: No Locat ion: [facility] odify By: margaret turner DateTime : 05/28/20 11:15:00 AM Not Available Not Available Not Available Humulin N NPH U-100 Insulin KwikPen 100 unit/mL (3 mL) subcutane ous 09/03 completed Not Available Not Available Not Available Fora D50-X50-Y 10-D20 strips-la ncets 30 gauge combo pack checking BS QID fasting and 1hr pp 07/21 completed Prescrib ed Elsewher e: No Locat ion: [facility] odify By: rubi turner DateTime : 11/27/19 11:22:44 AM Not [...] 30 minutes once 06/23 completed Prescrib ed Junie e: No Locat ion: [facility] odify By: annalisa turner DateTime : 09/13/20 [...] and Address Organization Details Last Updated DateTime 10/15/2025 157.48 cm 33.8 kg/m2 23952.59 g 119/73 mm[Hg] Emily Freeman [facility] 10/15/2025 14:32:05 Social History Question Answer Notes LastModified by Organizat ion Details LastModified Time Tobacco Smoking Status Former Smoker Emma Tasha conrad, [facility] 10/01/2020 15:14:21 If You Are , What Was Your Level Of Alcohol Consumption Prior To ? Occasional [email or web address] Information not available 02/01/2023 Are You Blind Or Do You Have Difficulty Seeing? No [email or web address] Information not available 09/23/2021 In The 14 Days Before Symptom Onset, Have You Had Close Contact With A Laboratory-confir med COVID-19 While That Case Was Ill? No [email or web address] Information not available 02/01/2023 In The 14 Days Before Symptom Onset, Have You Had Close Contact With A Person Who Is Under Investigation For COVID-19 While That Person Was Ill? No [email or web address] Information not available 02/01/2023 Have You Been To An Area Known To Be High Risk For COVID-19? No [email or web address] Information not available 02/01/2023 Are You Deaf Or Do You Have Serious Difficulty Hearing? No Information not available 09/23/2021 What Type Of Diet Are You Following? REGULAR [email or web address] Information not available 09/23/2021 What Was The Date Of Your Most Recent Tobacco Screening? 08/30/2024 [email or web address] Information not available 08/30/2024 Do You Use Your Seat Belt Or Car Seat Routinely? Yes [email or web address] Information not available 02/01/2023 Do You Have Smoke And Carbon Monoxide Detectors In Your Home? Yes [email or web address] Information not available 02/01/2023 How Much Tobacco Do You Smoke? No Information not available 05/21/2020 Do You Use Sunscreen Routinely? Yes [email or web address] Information not available 02/01/2023 Has Tobacco Cessation Counseling Been Provided? No Information not available 02/01/2023 Do You Have Difficulty Walking Or Climbing Stairs? No [email or web address] Information not available 07/21/2022 Sex: Unknown Functional Status Question Answer Note LastModified by Organizat ion Details LastModified Time Do you use any illicit or recreational drugs? No [email or web address] Information not available 02/01/2023 Do you or have you ever used any other forms of tobacco or nicotine? No [email or web address] Information not available 02/01/2023 What is your level of alcohol consumption? None [email or web address] Information not available 02/01/2023 Do you or have you ever used smokeless tobacco? Never used smokeless tobacco [email or web address] Information not available 05/21/2020 Are you able to walk independently without assistance or assistive devices? YESWOREST [email or web address] Information not available 09/23/2021 Are you able to care for yourself independently? Yes [email or web address] Information not available 07/21/2022 Do you have difficulty dressing, bathing, grooming, or toileting? No [email or web address] Information not available 07/21/2022 Do you or have you ever used e-cigarettes or vape? Never used electronic cigarettes [email or web address] Information not available 05/21/2020 What is your exercise level? Occasional walking [email or web address] Information not available 03/05/2020 Mental Status Question Answer Note LastModified by Organization D etails LastModified Time Do you feel stressed (tense, restless, nervous, or anxious, or unable to sleep at night)? [id number] [email or web address] Information not available 02/01/2023 Family History Relationship [...] ICD10 Code Diagnosis IMO Codes Diagnosis Note [id number] Venkat Gotti MD [place] [address] [address] 10/08/2025 10:54:40 10/08/2025 11:44:42 Threatened miscarriage [id number] O20.0 Z3A.01 [id number] [id number] CLAUDETTE SINGH MD [place] [address] [place] [address] 10/15/2025 13:26:38 10/15/2025 13:50:58 Complication occurring during [id number] O99.891 Z3A.01 [id number] Venkat Gotti MD [place] [address],[place] [address] 10/15/2025 13:27:10 10/15/2025 14:59:28 Acute urinary tract infection [id number] N39.0 [id number] Gestationa l diabetes mellitus [id number] O24.410 [id number] this patient is a 30-year-ol d female presents for amenorrhea . She is . She also has already suspect gestationa l diabetes. She has frequent urination and thirst. She has headache. Brain fog. She would like testing strips. She is going to start checking fastings and after her largest meal post prandials. She also has low back pain and pain radiating around from her groin on the left side. Patient has frequent urinary tract infections . We agreed to treat. Her last urinary tract infection was inadequate ly treated. It was discontinu ed due to lack of cold positive culture results. I spent over 20 minutes on her care in total. Health Concerns Section Related Observation LastModified by Organization Detai ls LastModified Time None Recorded Concern Status LastModified by Organization Details LastModified Time None Recorded Payers Encounter Date Sequence Insurance Name Policy Number Policy Horne Covered Member ID Horne Member ID Guarantor Name 10/15/2025 1 [employer] [id number] Buddy Yusuf [id number] Notes Date Note Type Note Provider Name and Address Organization Details Recorded Time 10/15/2025 text/html OB ProblemReport ed by Patient this patient is a 30-year-old female presents for amenorrhea. She is . She also has already suspect gestational diabetes. She has frequent urination and thirst. She has headache. Brain fog. She would like testing strips. She is going to start checking fastings and after her largest meal post prandials. She also has low back pain and pain radiating around from her groin on the left side. Patient has frequent urinary tract infections. We agreed to treat. Her last urinary tract infection was inadequately treated. It was discontinued due to lack of cold positive culture results. I spent over 20 minutes on her care in total. Venkat Gotti MD [address], [place], [address], [facility] 10/15/2025 14:58:31 OBGyn Episode No OBEpisode recorded.
--- OUTSIDE RECORDS SUMMARY | 2025-10-22 15:50 | XMS_ITS | Continuity of Care Document ---
Author Organization [facility], [facility] Address [address] [address] [place] [address] Care Team Providers Care Feller Hand Name Role Phone ZHOU SWAIN Primary Care Provider Assessment No assessment recorded. Plan of Treatment Reminders Order Date Submit Date Provider Last Modified By Organization Details Last Modified Time Details Appointments U/S OB SNEAK PEAK 2024 09:30A M ULTRASOUND Not available Not available Not available OB SCREEN 2024 10:15A M Maira T Carlton CNM Not available Not available Not available Lab None recorde d. Referral None recorde d. Procedures None recorde d. Surgeries None recorde d. Imaging US, obstetr ic, transva ginal 2024 025 [email or web address], [address], [place], [address], 10/17/2025 11:38:27 Medication Orders None recorde d. Patient TargetsNo [...] t Abnor mal: No Resul ting Lab: [facility] [address] [facility] [address] Tel: CULTU RE ----- ----- ----- --- Cultu re resul t (>=3 organ isms prese nt) indic ates possi ble conta minat ion. Repea t cultu re if sympt oms indic ate. Not Available [facility] (Lab) [address] [facility], [place], [address], 10/10/2025 08:41:21 10/08/20 25 10/08/2025 US, obste tric, trans vagin al No observ ation record ed. [email or web address] [place] [address], [place], [address], 10/08/2025 15:50:26 10/08/20 25 10/08/2025 US, obste tric, trans vagin al No observ ation record ed. [email or web address] [address], [place], [address], 10/08/2025 20:28:04 10/15/20 25 10/15/2025 US, obste tric, trans vagin al No observ ation record ed. [email or web address] [place] [address], [place], [address], 10/15/2025 14:43:23 10/15/20 25 10/15/2025 US, obste tric, trans vagin al No observ ation record ed. [email or web address] Nydia [address], [place], [address], 10/15/2025 15:11:39 Result Notes None recorded. Problems Name Problem SNOMED Code Status Onset Date Resolution Date Notes Provider Name and Address Organization Details Recorded Time Gestatio nal diabetes mellitus class A2 99449921 Completed 5u NPH AM, 5u Lispro Lunch, 15u NPH @ [facility] 03/31 [facility] Rosa Elena Weber [place], [place] - [facility] 3 14:52:11 Cholesta sis [id number] Completed 07/07 - Per Scarlett with MFM - she spoke with Dr. Dangelo and to cont ursodiol and anticipa te/assum e cholesta sis based on presenta tion. Rpt labs next week before MFM appt on 07/21. Might recommen d 37-38wk alena José Weber [facility] 3 14:52:12 Amenorrh ea [id number] Completed 201409/23/2021 AMENORRH EA;Pract ice ID: 0001 Emma Cordova [facility] 1 10:28:02 Speciali zed medical examinat ion Completed 201409/23/2021 Routine gynecolo gical examinat ion;Prac dante ID: 0001 Emma Cordova [facility] 1 10:31:25 Pregnanc y test positive [id number] Completed 201409/23/2021 Positive Pregnanc y Test;Pra ctice ID: 0001 Emma Cordova [facility] 10:30:38 Uterine size for dates discrepa ncy [id number] Completed 201409/23/2021 UTERINE SIZE MEG-ANTE PAR;Prac dante ID: 0001 Emma Cordova [facility], [facility] 1 10:31:47 Mild hypereme sis-not delivere d [id number] Completed 201409/23/2021 Hypereme sis gravidar um, antepart um Mild;Pra ctice ID: 0001 Emma Cordova [facility] 1 10:30:08 Nausea and vomiting [id number] Completed 201409/23/2021 Nausea with vomiting ;Practic e ID: 0001 Emma Cordova [facility] 1 10:30:09 Syncope and collapse [id number] Completed 201409/23/2021 Syncope and collapse ;Practic e ID: 0001 Emma conrad [facility] 10:31:31 Antenata l screenin g Completed 201409/23/2021 ANTENATA L SCREENIN G NEC;Prac dante ID: 0001 Emma conrad [facility] 10:28:04 Primigra parisa [id number] Completed 201409/23/2021 Supervis ion of normal first pregnanc y;Practi ce ID: 0001 Emma Cordova [facility] 10:30:56 anatomy study Completed 201409/23/2021 [facility] SURVEY;P ractice ID: 0001 Emma Cordova [facility] 10:29:10 Complica tion of pregnanc y, childbir th and/or puerperi um [id number] Completed 201409/23/2021 OTH CURR COND-ANT EPARTUM; Practice ID: 0001 [facility] 10:28:17 Pregnanc y, childbir th and puerperi um finding Completed 201409/23/2021 Encntr for suprvsn of normal first preg, third trimeste r;Practi ce ID: 0001 [facility] 10:30:41 Urinary tract infectio us disease [id number] Completed 201409/23/2021 Urinary tract infectio n, site not specifie d;Practi ce ID: 0001 Emma Cordova [place] [facility] 10:31:42 Eruption [id number] Completed 201409/23/2021 Rash;Rec orded Elsewher e: No Locat ion: [facility] S ource: EHR Geriatric Case Manager doris: N Practi ce ID: 0001 Roel lable Time: 03:30:00 PM Emma conrad, [facility] 1 10:28:58 Pregnanc y, childbir th and puerperi um finding Completed 201409/23/2021 Oth pregnanc y related conditio ns, third trimeste r;Practi ce ID: 0001 Emma conrad, [facility] 1 10:28:13 Noninfec tious enteriti s of intestin e Completed 201409/23/2021 Gastroen teritis; Recorded Elsewher e: No Locat ion: [facility] S ource: EHR Geriatric Case Manager doris: N Practi ce ID: 0001 Roel lable Time: 02:30:00 PM Emma conrad, [facility] 1 10:30:00 prematur e rupture of membrane s [id number] Completed 201409/23/2021 Pretrm evelin ROM, unsp time betw rupt and onst labr, 3rd tri;Prac dante ID: 0001 Emma conrad, [facility] 1 10:30:54 Lochia finding Completed 201509/23/2021 Encounte r for routine postpart um follow-u p;Record ed Elsewher e: No [facility]at [facility] S ource: EHR Geriatric Case Manager doris: N Practi ce ID: 0001 Roel lable Time: 01:00:00 PM Emma conrad, [facility] 1 10:30:[address] Concept Completed 201509/23/2021 Encounte r for surveill ance of other contrace ptives;R ecorded Elsewher e: No [facility]at [facility] S ource: EHR Geriatric Case Manager doris: N Practi ce ID: 0001 Roel lable Time: 01:00:00 PM mEma Brittontz [place] [facility] 1 10:31:20 Sexually transmit car infectio us disease [id number] Completed 201509/23/2021 STD;Romulo rded Elsewher e: No Locat ion: [facility] S ource: EHR Geriatric Case Manager doris: N Ab ce ID: 0001 Roel lable Time: 10:30:00 AM Emma Cordova [place] [facility] 1 10:31:01 Uses combined oral contrace ption [id number] Completed 201609/23/2021 Encounte r for initial prescrip tion of contrace ptive pills;Re corded Elsewher e: No Locat ion: [facility] S ource: EHR Geriatric Case Manager doris: Marjorie Berger ce ID: 0001 Roel lable Time: 08:30:00 AM Emma Tasha [place] [facility] 1 10:28:15 Procedur e Completed 201609/23/2021 Encounte r for checking , reinsert ion or removal of implanta ble subderma l contrace ptive;Re corded Elsewher e: No Locat ion: [facility] S ource: EHR Geriatric Case Manager doris: Marjorie Jairrodney ce ID: 0001 Roel lable Time: 08:30:00 AM Emma Cordova [place] [facility] 1 10:30:58 Infectio n screenin g Completed 201609/23/2021 Encounte r for screenin g for oth infec/pa rastc diseases ;Recorde d Elsewher e: No Locat ion: [facility] S ource: EHR Geriatric Case Manager doris: Marjorie Adamrodney ce ID: 0001 Roel lable Time: 11:00:00 AM Emma Tasha [place] [facility] 1 10:29:58 Acute vaginiti s [id number] Completed 201609/23/2021 Acute vaginiti s;Record ed Elsewher e: No Locat ion: [facility] S ource: EHR Geriatric Case Manager doris: N Jairti ce ID: 0001 Roel lable Time: 11:00:00 AM Emma conrad, [facility] 1 10:28:00 Vaginola bial hernia Completed 201609/23/2021 Other specifie d noninfla mmatory disorder s of vagina;R ecorded Elsewher e: No Locat ion: [facility] S ource: EHR Geriatric Case Manager doris: N Jairti ce ID: 0001 Roel lable Time: 11:00:00 AM Emma Cordova [facility], [facility] 1 10:31:49 Counseli reilly for harmful pattern of substanc e use Completed 201609/23/2021 Tobacco abuse counseli ng;Recor ded Elsewher e: No Locat ion: [facility] S ource: EHR Geriatric Case Manager doris: N Jairti ce ID: 0001 Roel lable Time: 11:00:00 AM Emma Cordova [facility], [facility] 10:31:[address] Concept Completed 201609/23/2021 Encntr for general adult medical exam w/o abnormal findings ;Recorde d Elsewher e: No Locat ion: [facility] S ource: EHR Geriatric Case Manager doris: N Jairti ce ID: 0001 Roel lable Time: 11:00:00 AM Emma conrad, [facility] 1 10:31:16 Increase d frequenc y of urinatio n [id number] Completed 201609/23/2021 Frequenc y of micturit ion;Romulo rded Elsewher e: No Locat ion: [facility] S ource: EHR Geriatric Case Manager doris: N Jairti ce ID: 0001 Roel lable Time: 11:15:00 AM Emma conrad, [facility] 1 10:29:56 Pregnanc y detectio n examinat ion Completed 201709/23/2021 Encounte r for pregnanc y test, result positive ;Recorde d Elsewher e: No Locat ion: [facility] alicia [facility] S ource: EHR Geriatric Case Manager doris: N Practi ce ID: 0001 Roel lable Time: 02:15:00 PM Emma conrad, [facility] 1 10:30:18 Finding of regulari ty of menstrua l cycle Completed 201709/23/2021 Irregula r bleeding ;Recorde d Elsewher e: No Locat ion: [facility] S ource: EHR Geriatric Case Manager doris: N Practi ce ID: 0001 Roel lable Time: 02:15:00 PM Emma conrad, [facility] 1 10:29:18 Cyst of ovary Completed 201709/23/2021 Unspecif ied ovarian cyst, unspecif ied side;Rec orded Elsewher e: No Locat ion: [facility] S ource: EHR Geriatric Case Manager doris: N Practi ce ID: 0001 Roel lable Time: 11:00:00 AM Emma conrad, [facility] 1 10:28:44 Syphilis test finding [id number] Completed 201709/23/2021 Encntr screen for infectio ns w sexl mode of transmis s;Record ed Elsewher e: No Locat ion: [facility] S ource: EHR Geriatric Case Manager doris: N Practi ce ID: 0001 Roel lable Time: 11:00:00 AM Emma conrad, [facility] [address] 10:31:[address] Concept Completed 201709/23/2021 Encntr for qualifications examiner exam (general ) (routine ) w/o abn findings ;Recorde d Elsewher e: No Locat ion: [facility] alicia [facility] S ource: EHR Geriatric Case Manager doris: N Jairrodney ce ID: 0001 Roel lable Time: 11:00:00 AM Emma conrad, [facility] 1 10:31:18 Body mass index 30+ - obesity [id number] Completed 201709/23/2021 Body mass index (BMI) 32.0-32. 9, adult;Re corded Elsewher e: No [facility] S ource: [facility] doris: N Jairti ce ID: 0001 Roel lable Time: 11:00:00 AM Emma Cordova [place], [facility] 10:28:11 Finding of pattern of menstrua l cycle Completed 201709/23/2021 Excessiv e and frequent menstrua tion with irregula r cycle;Re corded Elsewher e: No [facility] S ource: [facility] doris: N Ab ce ID: 0001 Roel lable Time: 01:00:00 PM Emma conrad, [facility] 1 10:29:16 Mammogra phic calcific ation of breast [id number] Completed 201709/23/2021 Mammogra phic calcifcn found on diagnost ic imaging of breast;R ecorded Elsewher e: No [facility] S ource: [facility] doris: N Ab ce ID: 0001 Roel lable Time: 01:00:00 PM Emma conrad, [facility] 1 10:30:05 Pain in female genitali a Completed 201709/23/2021 Dysmenor jannette, unspecif ied;Romulo rded Elsewher e: No Locat ion: [facility] S ource: [facility] doris: Marjorie Berger ce ID: 0001 Roel lable Time: 01:00:00 PM Emma conrad [facility] 1 10:30:13 Depressi ve disorder [id number] Completed 201709/23/2021 Major depressi ve disorder , single episode, unspecif ied;Romulo rded Elsewher e: No Locat ion: [facility] S ource: EHR Geriatric Case Manager doris: N Jairti ce ID: 0001 Roel lable Time: 09:00:00 AM Emma Cordova [facility], [facility] [address] 10:[address] Concept Completed 201709/23/2021 Anxiety disorder , unspecif ied;Romulo rded Elsewher e: No Locat ion: [facility] N Jairti ce ID: 0001 Roel lable Time: 09:45:00 AM Emma Cordova [facility], [facility] 10:31:09 Pregnanc y test negative [id number] Completed 201709/23/2021 Encounte r for pregnanc y test, result negative ;Recorde d Elsewher e: No Locat ion: [facility] S ource: EHR Geriatric Case Manager doris: N Jairti ce ID: 0001 Roel lable Time: 09:45:00 AM Emma Cordova [facility], [facility] 10:30:36 Blood leukocyt e number above referenc e range [id number] Completed 201709/23/2021 Elevated white blood cell count, unspecif ied;Romulo rded Elsewher e: No Locat ion: [facility] S ource: EHR Geriatric Case Manager doris: N Practi ce ID: 0001 Roel lable Time: 11:45:00 AM Emma Cordova [facility], [facility] 10:29:54 Pelvic and perineal pain [id number] Completed 201709/23/2021 Pelvic and perineal pain;Rec orded Elsewher e: No Locat ion: [facility] S ource: EHR Geriatric Case Manager doris: N Jairti ce ID: 0001 Roel lable Time: 11:15:00 AM Emma Tasha [place], [facility] 10:30:16 Dysuria [id number] Completed 201709/23/2021 Dysuria; Recorded Elsewher e: No Locat ion: [facility] S ource: EHR Geriatric Case Manager doris: N Practi ce ID: 0001 Roel lable Time: 11:45:00 AM Emma Tasha conrad, [facility] 1 10:28:56 Exposure to sexually transmis sible disorder Completed 201709/23/2021 Contact w and exposure to infect w a sexl mode of transmis s;Practi ce ID: 0001 Emma Cordova [place], [facility] 10:29:00 Gestatio n less than 9 weeks [id number] Completed 201809/23/2021 Less than 8 weeks gestatio n of pregnanc y;Record ed Elsewher e: No Locat ion: [facility] S ource: EHR Geriatric Case Manager doris: N Practi ce ID: 0001 Roel lable Time: 08:15:00 AM Emma Tasha [place] [facility] 10:29:22 Situatio n with explicit context Completed 201809/23/2021 Suprvsn of preg w poor reprodct v or obstet hx, first tri;Romulo rded Elsewher e: No Locat ion: [facility] S ource: EHR Geriatric Case Manager doris: N Practi ce ID: 0001 Roel lable Time: 08:15:00 AM Emma conrad [facility] 10:31:07 Threaten ed miscarri age [id number] Completed 201809/23/2021 Threaten ed ;Recorde d Elsewher e: No Locat ion: [facility] S ource: EHR Geriatric Case Manager doris: N Practi ce ID: 0001 Role lable Time: 10:30:00 AM Emma conrad [facility] 10:31:38 Blighted ovum [id number] Completed 201809/23/2021 Blighted ovum and nonhydat idiform mole;Rec orded Elsewher e: No Locat ion: [facility] S ource: EHR Geriatric Case Manager doris: N Ab ce ID: 0001 Roel lable Time: 10:30:00 AM Emma conrad, [facility] 10:28:08 Finding of contents of cervix [id number] Completed 201809/23/2021 Weeks of gestatio n of pregnanc y not specifie d;Record ed Elsewher e: No Locat ion: [facility] S ource: EHR Geriatric Case Manager doris: N Ab ce ID: 0001 Roel lable Time: 10:30:00 AM Emma conrad, [facility] 10:29:13 Normal pregnanc y in multigra parisa [id number] 24917 Completed 201809/23/2021 Encounte r for suprvsn of normal pregnanc y, second trimeste r;Record ed Elsewher e: No Locat ion: [facility] S ource: EHR Geriatric Case Manager doris: N Ab ce ID: 0001 Roel lable Time: 05:00:00 PM Emma conrad [facility] 10:30:11 Antenata l screenin g for malforma tion Completed 201809/23/2021 Encounte r for antenata l screenin g for malforma tions;Re corded Elsewher e: No Locat ion: [facility] S ource: EHR Geriatric Case Manager doris: N Ab ce ID: 0001 Roel lable Time: 10:30:00 AM Emma conrad [facility] 10:28:06 Gestatio n period, 20 weeks [id number] Completed 201809/23/2021 20 weeks gestatio n of pregnanc y;Record ed Elsewher e: No Locat ion: [facility] S ource: EHR Geriatric Case Manager doris: N Jairti ce ID: 0001 Roel lable Time: 11:30:00 AM Emma conrad, [facility] 10:29:24 Finding of trunk structur e Completed 201909/23/2021 Oth diseases and conditio ns compl preg/chl dbrth;Re corded Elsewher e: No [facility] S ource: EHR Geriatric Case Manager doris: N Jairti ce ID: 0001 Roel lable Time: 03:15:00 PM Emma conrad, [facility] 10:31:40 Gestatio n period, 29 weeks [id number] Completed 201909/23/2021 29 weeks gestatio n of pregnanc y;Record ed Elsewher e: No Locat ion: [facility] S ource: EHR Geriatric Case Manager doris: N Jairti ce ID: 0001 Roel lable Time: 03:15:00 PM Emma conrad, [facility] 10:29:27 Gestatio n period, 30 weeks [id number] Completed 201909/23/2021 30 weeks gestatio n of pregnanc y;Record ed Elsewher e: No Locat ion: [facility] S ource: EHR Geriatric Case Manager doris: N Jairti ce ID: 0001 Roel lable Time: 10:45:00 AM Emma conrad, [facility] 10:29:29 Uterine size for dates discrepa ncy Completed 201909/23/2021 Uterine size-neeta e discrepa ncy, second trimeste r;Record ed Elsewher e: No Locat ion: [facility] S ource: EHR Geriatric Case Manager doris: N Jairti ce ID: 0001 Roel lable Time: 10:45:00 AM Emma conrad, [facility] 10:31:[address] Concept Completed 201909/23/2021 Decrease d movement s, third trimeste r, unsp;Rec orded Elsewher e: No Locat ion: [facility] S ource: EHR Geriatric Case Manager doris: N Practi ce ID: 0001 Roel lable Time: 11:30:00 AM Emma conrad, [facility] 10:31:14 Prematur e rupture of membrane s [id number] Completed 201909/23/2021 Evelin ROM, 7th0 betw rupt & onst labr, unsp weeks of gest;Pra ctice ID: 0001 Emma conrad, [facility] 10:30:51 Gestatio n period, 32 weeks [id number] Completed 201909/23/2021 32 weeks gestatio n of pregnanc y;Record ed Elsewher e: No Locat ion: [facility] S ource: EHR Geriatric Case Manager doris: N Practi ce ID: 0001 Roel lable Time: 11:00:00 AM Emma conrad, [facility] 10:29:30 Gestatio n period, 33 weeks [id number] Completed 201909/23/2021 33 weeks gestatio n of pregnanc y;Record ed Elsewher e: No Locat ion: [facility] S ource: EHR Geriatric Case Manager doris: N Practi ce ID: 0001 Roel lable Time: 03:00:00 PM Emma conrad, [facility] 10:29:32 Gestatio n period, 34 weeks [id number] Completed 201909/23/2021 34 weeks gestatio n of pregnanc y;Record ed Elsewher e: No Locat ion: [facility] S ource: EHR Geriatric Case Manager doris: N Practi ce ID: 0001 Roel lable Time: 11:00:00 AM Emma conrad, [facility] 10:29:34 False labor before 37 complete d weeks of gestatio n [id number] Completed 201909/23/2021 False labor before 37 complete d weeks of gest, third tri;Prac dante ID: 0001 Emma conrad, [facility] 10:29:08 Gestatio n period, 35 weeks [id number] Completed 201909/23/2021 35 weeks gestatio n of pregnanc y;Record ed Elsewher e: No Locat ion: [facility] S ource: EHR Geriatric Case Manager doris: N Practi ce ID: 0001 Roel lable Time: 11:30:00 AM Emma conrad, [facility] 10:29:36 Gestatio nal diabetes mellitus [id number] Completed 201909/23/2021 Gestatio nal diabetes in pregnanc y, insulin controll ed;Recor ded Elsewher e: No Locat ion: [facility] S ource: EHR Geriatric Case Manager doris: N Practi ce ID: 0001 Roel lable Time: 10:30:00 AM Emma conrad, [facility] 10:29:52 Gestatio n period, 36 weeks [id number] Completed 201909/23/2021 36 weeks gestatio n of pregnanc y;Practi ce ID: 0001 Emma conrad, [facility] 10:29:38 Pregnanc y-induce d hyperten bo Completed 201909/23/2021 Gestatio nal htn w/o signific ant proteinu anais, third trimeste r;Practi ce ID: 0001 Emma conrad, [facility] 10:30:49 Gestatio n period, 37 weeks [id number] Completed 201909/23/2021 37 weeks gestatio n of pregnanc y;Record ed Elsewher e: No [facility]at [facility] S ource: EHR Geriatric Case Manager doris: N Practi ce ID: 0001 Roel lable Time: 10:30:00 AM Emma conrad [facility] 10:29:40 False labor at or after 37 complete d weeks of gestatio n [id number] Completed 201909/23/2021 False labor at or after 37 complete d weeks of gestatio n;Practi ce ID: 0001 Emma conrad, [facility] 10:29:06 Gestatio n period, 38 weeks [id number] Completed 201909/23/2021 38 weeks gestatio n of pregnanc y;Record ed Elsewher e: No [facility] S ource: [facility] Geriatric Case Manager doris: N Practi ce ID: 0001 Roel lable Time: 10:30:00 AM Emma conrad [facility] 10:29:41 Term pregnanc y delivere d [id number] Completed 201909/23/2021 Encounte r for full-ter m uncompli cated delivery ;Practic e ID: 0001 Emma conrad, [facility] 10:31:36 Single live from singleto n pregnanc y [id number] Completed 201909/23/2021 Single live ;Pr actice ID: 0001 Emma conrad, [facility] 10:31:03 Gestatio n period, 39 weeks [id number] Completed 201909/23/2021 39 weeks gestatio n of pregnanc y;Practi ce ID: 0001 Emma conrad, [facility] 1 10:29:43 Past pregnanc y history of gestatio nal diabetes mellitus [id number] Active 2022 Tiffanie Flores MD [address], [place], [address], [facility] 3 19:36:59 Pregnanc y [id number] Completed 202208/16/2023 José Weber [facility] 3 14:52:19 Gestatio nal diabetes mellitus [id number] Completed 2022 h/o gdm2A. Checking BS QID, serial growth, antenata l testing José Weber [facility] 14:52:11 Problem Notes None recorded. Procedures Surgical History Date Name Laterality Status Provider Name and Address Organization Details Recorded Time 06/07/20 25 Dilation and Curettage completed Emily Millard [facility] 06/18/2025 14:42:30 02/14/20 25 Date of Last Pap Smear completed Tiffanie Boothe [facility] 06/01/2025 12:11:46 08/30/20 24 IUD Removal completed Maria T Carlton CNM [address], [place], [address], [facility] 08/31/2024 13:59:56 08/04/20 24 IUD Insertion completed Maria T Carlton CNM [address], [place], [address], [facility] 08/05/2024 08:44:48 07/29/20 22 Hysteroscopy completed Maria T Carlton CNM [address], [place], [address], [facility] 07/29/2022 08:52:41 07/29/20 22 Hysteroscopy completed Emma Cordova [facility] 07/29/2022 08:35:27 07/21/20 22 [facility] 07/[facility]2022 12:21:30 04/17/20 20 IUD Insertion completed [facility] 04/17/2020 12:09:21 03/20/20 20 IUD Insertion completed [facility] 03/20/2020 12:11:51 11/22/19 18 Appendectomy completed [facility] 10/01/2020 19:16:40 11/22/19 14 completed Kayla Fournier [facility] 10/08/2021 16:13:03 11/22/19 14 colonoscopy completed [facility] 09/23/2021 10:34:09 11/22/19 13 Dilation and curettage completed [facility] 09/23/2021 10:34:16 11/22/19 00 tonsillectomy completed [facility] 09/23/2021 10:34:23 Imaging Results None recorded. Procedure Notes None recorded. Medical Equipment None Reported. Allergies Allergen ID Allergen Name Allergen Category Reaction Reaction Severity Criticality Documentation Date Start Date Code Code System Note Provider Name and Address Organization Details Recorded Time prednison e medicatio n Not available Not available Not available 01/05/2023 8640 RxNorm Emma conrad [facility] 3 10:49:28 2666 amoxicill in medicatio n Not available Not available Not available 10/01/2020 723 RxNorm Emma conrad [facility] 1 10:27:49 91377 aluminum aspirin Not available Not available Not available Not available 10/08/20252020 611 RxNorm unrec vandana ed react ion (text : Other , code: 92382 07) (from [facility]) Not Available carlos - External Data Service - prod 5 09:39:58 91 aspirin medicatio n Not available Not available Not available 03/04/2020 1191 RxNorm Caterina Aquino [place], [place] - [facility] 0 17:51:36 Medications Name Sig Start [...] Prescrib ed Elsewher e: No Locat ion: [facility] odify By: [email or web address] z Encoun ter [...] Prescrib ed Elsewher e: No Locat ion: [facility] odify By: raul correa DateTime : 10/10/20 15 11:00:00 AM Not Available Not Available Not Available prednison e 20 mg tablet TAKE 3 TABLETS BY MOUTH EVERY DAY FOR 5 DAYS 01/05 completed Not Available Not Available Not Available Diflucan 150 mg tablet take 1 tablet by oral route once 04/26 completed Prescrib ed Elsewher e: No Locat ion: [facility] odify By: annalisa turner DateTime : 03/29/20 [...] Prescrib ed Elsewher e: No [facility] By: [email or web address] palomo DateTime : 07/21/20 18 04:08:38 PM Not Available Not Available Not Available dicyclomi ne 20 mg tablet 10/01 completed Not Available Not Available Not Available betametha sone valerate 0.1 % topical cream apply by topical route every day a thin layer to the affected area(s) 02/01 completed Prescrib ed Elsewher e: No [facility] By: raul z Encoun ter DateTime [...] Prescrib ed Elsewher e: No Locat ion: [facility] odify By: annalisa turner DateTime : 09/12/20 [...] Prescrib ed Elsewher e: No [facility] By: [email or web address] Vargas [email or web address] DateTime : [...] Prescrib ed Elsewher e: No Locat ion: [facility] odify By: [email or web address] z Encoun ter DateTime : 09/02/20 15 09:21:34 AM Not Available Not Available Not Available norethind jatinder (contrace ptive) 0.35 mg tablet TAKE 1 TABLET BY MOUTH EVERY DAY 02/13 completed Not Available Not Available Not Available Zoloft 25 mg tablet take 1 tablet by oral route every day 03/29 completed Prescrib ed Elsewher e: No [facility] By: [email or web address] z Encoun ter DateTime [...] Prescrib ed Elsewher e: No [facility]at [facility] By: annalisa turner DateTime : 09/09/20 [...] Prescrib ed Elsewher e: No [facility]at [facility] odify By: [email or web address] Vargas ncounter DateTime : [...] Prescrib ed Elsewher e: No [facility]at [facility]ify By: lexi correa DateTime : 12/08/19 [...] Prescrib ed Elsewher e: No Locat ion: [facility] odify By: margaret turner DateTime : 05/28/20 11:15:00 AM Not Available Not Available Not Available Humulin N NPH U-100 Insulin KwikPen 100 unit/mL (3 mL) subcutane ous 09/03 completed Not Available Not Available Not Available Fora N68-V86-R 10-D20 strips-la ncets 30 gauge combo pack checking BS QID fasting and 1hr pp 07/21 completed Prescrib ed Elsewher e: No Locat ion: [facility] odify By: [email or web address] turner DateTime : 11/27/19 [...] 30 minutes once 06/23 completed [facility]crib ed [facility]: No Locat ion: [facility] odify By: annalisa turner DateTime : 09/13/20 [...] Updated DateTime 10/15/2025 157.48 cm 33.8 kg/m2 68567.59 g 119/73 mm[Hg] Emily Freeman [facility] 10/15/2025 14:32:05 Social History Question Answer Notes LastModified by Organizat ion Details LastModified Time Tobacco Smoking Status Former Smoker Emma Cordova [place], [facility] 10/01/2020 15:14:21 If You Are , What Was Your Level Of Alcohol Consumption Prior To ? Occasional [email or web address] Information not available 02/01/2023 Are You Blind Or Do You Have Difficulty Seeing? No [email or web address] Information not available 09/23/2021 In The 14 Days Before Symptom Onset, Have You Had Close Contact With A Laboratory-confir med COVID-19 While That Case Was Ill? No [email or web address] Information not available 02/01/2023 In The 14 Days Before Symptom Onset, Have You Had Close Contact With A Person Who Is Under Investigation For COVID-19 While That Person Was Ill? No [email or web address] Information not available 02/01/2023 Have You Been To An Area Known To Be High Risk For COVID-19? No [email or web address] Information not available 02/01/2023 Are You Deaf Or Do You Have Serious Difficulty Hearing? No [email or web address] Information not available 09/23/2021 What Type Of Diet Are You Following? REGULAR [email or web address] Information not available 09/23/2021 What Was The Date Of Your Most Recent Tobacco Screening? 08/30/2024 [email or web address] Information not available 08/30/2024 Do You Use Your Seat Belt Or Car Seat Routinely? Yes [email or web address] Information not available 02/01/2023 Do You Have Smoke And Carbon Monoxide Detectors In Your Home? Yes [email or web address] Information not available 02/01/2023 How Much Tobacco Do You Smoke? No [email or web address] Information not available 05/21/2020 Do You Use Sunscreen Routinely? Yes [email or web address] Information not available 02/01/2023 Has Tobacco Cessation Counseling Been Provided? No [email or web address] Information not available 02/01/2023 Do You Have Difficulty Walking Or Climbing Stairs? No [email or web address] Information not available 07/21/2022 Sex: Unknown Functional Status Question Answer Note LastModified by Organizat ion Details LastModified Time Do you use any illicit or recreational drugs? No Information not available 02/01/2023 Do you or have you ever used any other forms of tobacco or nicotine? No [email or web address] Information not available 02/01/2023 What is your level of alcohol consumption? None [email or web address] Information not available 02/01/2023 Do you or have you ever used smokeless tobacco? Never used smokeless tobacco [email or web address] Information not available 05/21/2020 Are you able to walk independently without assistance or assistive devices? YESWOREST [email or web address] Information not available 09/23/2021 Are you able to care for yourself independently? Yes [email or web address] Information not available 07/21/2022 Do you have difficulty dressing, bathing, grooming, or toileting? No [email or web address] Information not available 07/21/2022 Do you or have you ever used e-cigarettes or vape? Never used electronic cigarettes [email or web address] Information not available 05/21/2020 What is your exercise level? Occasional walking jgumber Information not available 03/05/2020 Mental Status Question Answer Note LastModified by Organization D etails LastModified Time Do you feel stressed (tense, restless, nervous, or anxious, or unable to sleep at night)? [id number] [email or web address] Information not available 02/01/2023 Family History Relationship [...] ICD10 Code Diagnosis IMO Codes Diagnosis Note [id number] Venkat Gotti MD [place] [address] [address] 10/08/2025 10:54:40 10/08/2025 11:44:42 Threatened miscarriage [id number] O20.0 Z3A.01 86514 [id number] CLAUDETTE SINGH MD [place] [address] [address] 10/15/2025 13:26:38 10/15/2025 13:50:58 Complication occurring during [id number] O99.891 Z3A.01 [id number] Venkat Gotti MD [place] [address] [address] 10/15/2025 13:27:10 10/15/2025 14:59:28 Acute urinary tract infection [id number] N39.0 633567 Gestationa l diabetes mellitus 09242592 O24.410 [id number] this patient is a 30-year-ol d female [...] Member ID Guarantor Name 10/15/2025 1 [employer] [id number] Buddy Yusuf [id number] Notes Date Note Type Note Provider Name [...] total. Venkat Gotti MD [address], [place], [address], [facility] 10/15/2025 14:58:31 OBGyn Episode No OBEpisode recorded.
--- OUTSIDE RECORDS SUMMARY | 2025-10-22 15:50 | XMS_ITS | Data Portability ---
Author Organization [facility] Address [address] [place] [address] [place] [address] Care Team Providers Care Crime Scene Technician Name Role Phone ZHOU SWAIN Primary Care Provider Assessment No assessment recorded. Plan of Treatment Reminders Order Date Submit Date Provider Last Modified By Organization Details Last Modified Time Details Appointments U/S OB SNEAK PEAK 2024 09:30A M ULTRASOUND Not available Not available Not available OB SCREEN 2024 10:15A M Maria T Carlton CNM Not available Not available Not available Lab pregnan cy test, urine 2024 025 [email or web address], [address], [place], [address], 06/18/2025 14:43:50 Referral None recorde d. Procedures None recorde d. Surgeries None recorde d. Imaging US, obstetr ic, transva ginal [address], [address], [place], [address], 10/17/2025 11:38:27 US, obstetr ic, transva ginal [address], [address], [place], [address], 10/08/2025 18:48:46 Medication Orders OneTouc h Ultra Test strips 2024 025 V[address] [id number], [address] [place], [address], 10/15/2025 14:52:18 Macrobi d 100 mg capsule 2024 025 LE ROY [id number], [address] [place], [address], 10/15/2025 14:42:52 Patient TargetsNo targets recorded. Patient InstructionsNo instructions recorded. Reason for Referral None Reported. Results Created Date Observation Date Name Description Value Unit Range Abnormal Flag Note LastModifiedBy Organization Detail LastModifiedTime 06/01/2006/01/2025 BHCG, QUANT ITATI VE B-HCG 19433. 0 mIU/m L 0.0-4. 9 high This [...] mIU/m L Hannah l Pregn maryjane: Gesta sheila l Age bHCG Conc. - mIU/m L [...] Weeks 8,099 - 58,17 6 Not Available [facility] (Lab) [address], [place], [address], 06/02/2025 05:58:53 06/18/2006/18/2025 pregn maryjane test, urine HCG positi ve Not Available [address], [place], [address], 06/18/2025 14:43:42 10/08/2010/08/2025 CULTU RE: URINE result report SEE RESULT S BELOW Test: Cultu re: Urine Speci men Sourc e: Urine - Clean Catch Speci men Type: Urine Speci men Date: 10/08 1705 Resul t Date: 10/10 0736 Resul t Statu s: Final resul t Abnor mal: No Resul ting Lab: [facility] [address] [facility] [address] Tel: CULTU RE ----- ----- ----- --- Cultu re resul t (>=3 organ isms prese nt) indic ates possi ble conta minat ion. Repea t cultu re if sympt oms indic ate. Not Available [facility] (Lab) [address], [place], [address], 10/10/2025 08:41:21 06/01/2006/01/2025 US, obste tric, trans vagin al No observ ation [facility]. [facility] [address], [place], [address], 06/01/2025 13:30:45 06/01/20 25 06/01/2025 US, obste tric, follo w-up No observ ation record ed. [email or web address] N[address], [place], [address], 06/04/2025 12:09:55 10/08/20 25 10/08/2025 US, obste tric, trans vagin al No observ ation record ed. [email or web address] [address], [place], [address], 10/08/2025 15:50:26 10/08/20 25 10/08/2025 US, obste tric, trans vagin al No observ ation record ed. [email or web address] Nydia [address], [place], [address], 10/08/2025 20:28:04 10/15/20 25 10/15/2025 US, obste tric, trans vagin al No observ ation record ed. [email or web address] [address], [place], [address], 10/15/2025 14:43:23 10/15/20 25 10/15/2025 US, obste tric, trans vagin al No observ ation record ed. [email or web address] Nydia [address], [place], [address], 10/15/2025 15:11:39 Result Notes None recorded. Problems Name Problem SNOMED Code Status Onset Date Resolution Date Notes Provider Name and Address Organization Details Recorded Time Gestatio nal diabetes mellitus class A2 30283537 Completed 5u NPH AM, 5u Lispro Lunch, 15u NPH @ - [facility] 03/31 [facility] Rosa Elena Weber [facility] 3 14:52:11 Cholesta sis [id number] Completed 07/07 - Per Scarlett with [facility] - she spoke with Dr. Dangelo and to cont ursodiol and anticipa te/assum e cholesta sis based on presenta tion. Rpt labs next week before [facility] appt on 07/21. Might recommen d 37-38wk del José Weber [facility] 3 14:52:12 Amenorrh ea [id number] Completed 201409/23/2021 AMENORRH EA;Pract ice ID: 0001 Emma conrad [facility] 1 10:28:02 Speciali zed medical examinat ion Completed 201409/23/2021 Routine gynecolo gical examinat ion;Prac dante ID: 0001 [facility] 10:31:25 Pregnanc y test positive [id number] Completed 201409/23/2021 Positive Pregnanc y Test;Pra ctice ID: 0001 Emma Cordova [facility] 10:30:38 Uterine size for dates discrepa ncy [id number] Completed 201409/23/2021 UTERINE SIZE MEG-ANTE PAR;Prac dante ID: 0001 Emma Cordova [facility] 10:31:47 Mild hypereme sis-not delivere d [id number] Completed 201409/23/2021 Hypereme sis gravidar um, antepart um Mild;Pra ctice ID: 0001 Emma Cordova [facility] 10:30:08 Nausea and vomiting [id number] Completed 201409/23/2021 Nausea with vomiting ;Practic e ID: 0001 Emma Cordova [facility] 10:30:09 Syncope and collapse [id number] Completed 201409/23/2021 Syncope and collapse ;Practic e ID: 0001 Emma Cordova [facility], [facility] 10:31:31 Antenata l screenin g Completed 201409/23/2021 ANTENATA L SCREENIN G NEC;Prac dante ID: 0001 Emma Cordova [facility] 10:28:04 Primigra parisa [id number] Completed 201409/23/2021 Supervis ion of normal first pregnanc y;Practi ce ID: 0001 Emma Cordova [facility] 10:30:56 anatomy study Completed 201409/23/2021 [facility] SURVEY;P ractice ID: 0001 Emma conrad [facility] 10:29:10 Complica tion of pregnanc y, childbir th and/or puerperi um [id number] Completed 201409/23/2021 OTH CURR COND-ANT EPARTUM; Practice ID: 0001 Emmapat conrad, [facility] 10:28:17 Pregnanc y, childbir th and puerperi um finding Completed 201409/23/2021 Encntr for suprvsn of normal first preg, third trimeste r;Practi ce ID: 0001 [facility] 10:30:41 Urinary tract infectio us disease [id number] Completed 201409/23/2021 Urinary tract infectio n, site not specifie d;Practi ce ID: 0001 Emma Cordova [facility] 10:31:42 Eruption [id number] Completed 201409/23/2021 Rash;Rec orded Elsewher e: No Locat ion: Curtis vargas [facility] S ource: EHR Rn Surgical doris: N Practi ce ID: 0001 Roel lable Time: 03:30:00 PM Emma Brittontz [place] [facility] 10:28:58 Pregnanc y, childbir th and puerperi um finding Completed 201409/23/2021 Oth pregnanc y related conditio ns, third trimeste r;Practi ce ID: 0001 Emma Cordova [facility] 10:28:13 Noninfec tious enteriti s of intestin e Completed 201409/23/2021 Gastroen teritis; Recorded Elsewher e: No Locat ion: Curtis vargas [facility] S ource: EHR Rn Surgical doris: N Practi ce ID: 0001 Roel lable Time: 02:30:00 PM Emma conrad, [facility] 1 10:30:00 prematur e rupture of membrane s [id number] Completed 201409/23/2021 Pretrm evelin ROM, unsp time betw rupt and onst labr, 3rd tri;Prac dante ID: 0001 Emma conrad, [facility] 1 10:30:54 Lochia finding Completed 201509/23/2021 Encounte r for routine postpart um follow-u p;Record ed Elsewher e: No [facility] S ource: EHR Rn Surgical doris: N Practi ce ID: 0001 Roel lable Time: 01:00:00 PM Emma conrad, [facility] [address] 10:30:[address] Concept Completed 201509/23/2021 Encounte r for surveill ance of other contrace ptives;R ecorded Elsewher e: No Locat ion: Curtis vargas [facility] S ource: EHR Rn Surgical doris: N Practi ce ID: 0001 Roel lable Time: 01:00:00 PM Emma conrad [facility] 1 10:31:20 Sexually transmit car infectio us disease [id number] Completed 201509/23/2021 STD;Romulo rded Elsewher e: No Locat ion: Curtis vargas [facility] S ource: EHR Rn Surgical doris: N Practi ce ID: 0001 Roel lable Time: 10:30:00 AM Emma conrad [facility] 1 10:31:01 Uses combined oral contrace ption [id number] Completed 201609/23/2021 Encounte r for initial prescrip tion of contrace ptive pills;Re corded Elsewher e: No [facility]at [facility]: [facility] R[facility] Surgical doris: N Practi ce ID: 0001 Roel lable Time: 08:30:00 AM Emma conrad, [facility] 10:28:15 Procedur e Completed 201609/23/2021 Encounte r for checking , reinsert ion or removal of implanta ble subderma l contrace ptive;Re corded Elsewher e: No [facility] Practi ce ID: 0001 Roel lable Time: 08:30:00 AM Emma conrad, [facility] 10:30:58 Infectio n screenin g Completed 201609/23/2021 Encounte r for screenin g for oth infec/pa rastc diseases ;Recorde d Elsewher e: No Locat ion: [facility] S [facility]ce: [facility] N Practi ce ID: 0001 Roel lable Time: 11:00:00 AM Emma conrad, [facility] 10:29:58 Acute vaginiti s [id number] Completed 201609/23/2021 Acute vaginiti s;Record ed Elsewher e: No Locat ion: [facility] S ource: EHR Rn Surgical doris: N Practi ce ID: 0001 Roel lable Time: 11:00:00 AM Emma conrad, [facility] 10:28:00 Vaginola bial hernia Completed 201609/23/2021 Other specifie d noninfla mmatory disorder s of vagina;R ecorded Elsewher e: No Locat ion: [facility] S ource: EHR Rn Surgical doris: N Practi ce ID: 0001 Roel lable Time: 11:00:00 AM Emma conrad, [facility] 11/02/202 1 10:31:49 Counseli ng for harmful pattern of substanc e use Completed 201609/23/2021 Tobacco abuse counseli ng;Recor ded Elsewher e: No Locat ion: [facility] S ource: EHR Rn Surgical doris: N Practi ce ID: 0001 Roel lable Time: 11:00:00 AM Emma Cordova [facility] [address] 10:31:[address] Concept Completed 201609/23/2021 Encntr for general adult medical exam w/o abnormal findings ;Recorde d Elsewher e: No Locat ion: [facility] S ource: EHR Rn Surgical doris: N Practi ce ID: 0001 Roel lable Time: 11:00:00 AM Emma Cordova [facility] 1 10:31:16 Increase d frequenc y of urinatio n [id number] Completed 201609/23/2021 Frequenc y of micturit ion;Romulo rded Elsewher e: No Locat ion: [facility] S ource: EHR Rn Surgical doris: N Practi ce ID: 0001 Roel lable Time: 11:15:00 AM Emma Cordova [facility], [facility] 1 10:29:56 Pregnanc y detectio n examinat ion Completed 201709/23/2021 Encounte r for pregnanc y test, result positive ;Recorde d Elsewher e: No Locat ion: [facility] S ource: EHR Rn Surgical doris: N Practi ce ID: 0001 Roel lable Time: 02:15:00 PM Emma Cordova [facility] 1 10:30:18 Finding of regulari ty of menstrua l cycle Completed 201709/23/2021 Irregula r bleeding ;Recorde d Elsewher e: No Locat ion: [facility] S ource: EHR Rn Surgical doris: N Practi ce ID: 0001 Roel lable Time: 02:15:00 PM Emma Cordova [place], [facility] 10:29:18 Cyst of ovary Completed 201709/23/2021 Unspecif ied ovarian cyst, unspecif ied side;Rec orded Elsewher e: No [facility]: [facility] Surgical doris: N Ab ce ID: 0001 Roel lable Time: 11:00:00 AM Emma Cordova [place], [facility] 10:28:44 Syphilis test finding [id number] Completed 201709/23/2021 Encntr screen for infectio ns w sexl mode of transmis s;Record ed Elsewher e: No Locat ion: [facility] S ource: EHR Rn Surgical doris: N Ab ce ID: 0001 Roel lable Time: 11:00:00 AM Emma Cordova [facility], [facility] 10:31:[address] Concept Completed 201709/23/2021 Encntr for press bucker exam (general ) (routine ) w/o abn findings ;Recorde d Elsewher e: No Locat ion: [facility] S ource: EHR Rn Surgical doris: N Ab ce ID: 0001 Roel lable Time: 11:00:00 AM Emma Cordova [place] [facility] 10:31:18 Body mass index 30+ - obesity [id number] Completed 201709/23/2021 Body mass index (BMI) 32.0-32. 9, adult;Re corded Elsewher e: No Locat ion: [facility] S ource: EHR Rn Surgical doris: N Ab ce ID: 0001 Roel lable Time: 11:00:00 AM Emma Cordova [place] [facility] 10:28:11 Finding of pattern of menstrua l cycle Completed 201709/23/2021 Excessiv e and frequent menstrua tion with irregula r cycle;Re corded Elsewher e: No Locat ion: [facility] S [facility]ce[facility] N Ab ce ID: 0001 Roel lable Time: 01:00:00 PM Emma conrad [facility] 1 10:29:16 Mammogra phi calcific ation of breast [id number] Completed 201709/23/2021 Mammogra phic calcifcn found on diagnost ic imaging of breast;R ecorded Elsewher e: No Locat ion: [facility] S ource: [facility]: N Ab ce ID: 0001 Roel lable Time: 01:00:00 PM Emma conrad [facility] 10:30:05 Pain in female genitali a Completed 201709/23/2021 Dysmenor jannette, unspecif ied;Romulo rded Elsewher e: No Locat ion: [facility] S ource: [facility]: N Ab ce ID: 0001 Roel lable Time: 01:00:00 PM Emma conrad, [facility] 10:30:13 Depressi ve disorder [id number] Completed 201709/23/2021 Major depressi ve disorder , single episode, unspecif ied;Romulo rded Elsewher e: No Locat ion: [facility] S ource: [facility]: N Jairti ce ID: 0001 Roel lable Time: 09:00:00 AM Emma conrad [facility] 10:28:[address] Concept Completed 201709/23/2021 Anxiety disorder , unspecif ied;Romulo rded Elsewher e: No Locat ion: [facility] S ource: EHR Rn Surgical doris: N Jairti ce ID: 0001 Roel lable Time: 09:45:00 AM Emma conrad [facility] 1 10:31:09 Pregnanc y test negative [id number] Completed 201709/23/2021 Encounte r for pregnanc y test, result negative ;Recorde d Elsewher e: No [facility]: EHR Rn Surgical doris: N Practi ce ID: 0001 Roel lable Time: 09:45:00 AM Emma conrad, [facility] 1 10:30:36 Blood leukocyt e number above referenc e range [id number] Completed 201709/23/2021 Elevated white blood cell count, unspecif ied;Romulo rded Elsewher e: No Locat ion: [facility] S ource: EHR Rn Surgical doris: N Practi ce ID: 0001 Roel lable Time: 11:45:00 AM Emma conrad, [facility] 1 10:29:54 Pelvic and perineal pain [id number] Completed 201709/23/2021 Pelvic and perineal pain;Rec orded Elsewher e: No Locat ion: [facility] S ource: EHR Rn Surgical doris: N Practi ce ID: 0001 Roel lable Time: 11:15:00 AM Emma conrad [facility] 10:30:16 Dysuria [id number] Completed 201709/23/2021 Dysuria; Recorded Elsewher e: No Locat ion: [facility] S ource: [facility]: N Practi ce ID: 0001 Roel lable Time: 11:45:00 AM Emma conrad [facility] 1 10:28:56 Exposure to sexually transmis sible disorder Completed 201709/23/2021 Contact w and exposure to infect w a sexl mode of transmis s;Practi ce ID: 0001 Emma conrad, [facility] 1 10:29:00 Gestatio n less than 9 weeks [id number] Completed 201809/23/2021 Less than 8 weeks gestatio n of pregnanc y;Record ed Elsewher e: No Locat ion: [facility] S ource: EHR Rn Surgical doris: N Jairti ce ID: 0001 Roel lable Time: 08:15:00 AM Emma conrad, [facility] 10:29:22 Situatio n with explicit context Completed 201809/23/2021 Suprvsn of preg w poor reprodct v or obstet hx, first tri;Romulo rded Elsewher e: No [facility]: EHR Rn Surgical doris: N Jairti ce ID: 0001 Roel lable Time: 08:15:00 AM Emma conrad, [facility] 10:31:07 Threaten ed miscarri age [id number] Completed 201809/23/2021 Threaten ed ;Recorde d Elsewher e: No [facility]: EHR Rn Surgical doris: N Jairti ce ID: 0001 Roel lable Time: 10:30:00 AM Emma conrad [facility] 10:31:38 Blighted ovum [id number] Completed 201809/23/2021 Blighted ovum and nonhydat idiform mole;Rec orded Elsewher e: No Locat ion: [facility] S ource: EHR Rn Surgical doris: N Practi ce ID: 0001 Roel lable Time: 10:30:00 AM Emma conrad, [facility] 10:28:08 Finding of contents of cervix [id number] Completed 201809/23/2021 Weeks of gestatio n of pregnanc y not specifie d;Record ed Elsewher e: No [facility]: [facility] Rn Surgical doris: N Ab ce ID: 0001 Roel lable Time: 10:30:00 AM Emma conrad [facility] 1 10:29:13 Normal pregnanc y in eaglegra parisa [id number] 92113 Completed 201809/23/2021 Encounte r for suprvsn of normal pregnanc y, second trimeste r;Record ed Elsewher e: No Locat ion: [facility] S ource: EHR Rn Surgical doris: N Jairti ce ID: 0001 Roel lable Time: 05:00:00 PM Emma conrad [facility] 1 10:30:11 Antenata l screenin g for malforma tion Completed 201809/23/2021 Encounte r for antenata l screenin g for malforma tions;Re corded Elsewher e: No Locat ion: [facility] S ource: EHR Rn Surgical doris: N Ab ce ID: 0001 Roel lable Time: 10:30:00 AM Emma conrad [facility] 10:28:06 Gestatio n period, 20 weeks [id number] Completed 201809/23/2021 20 weeks gestatio n of pregnanc y;Record ed Elsewher e: No [facility]: EHR Rn Surgical doris: N Jairti ce ID: 0001 Roel lable Time: 11:30:00 AM Emma conrad [facility] 1 10:29:24 Finding of trunk structur e Completed 201909/23/2021 Oth diseases and conditio ns compl preg/chl dbrth;Re corded Elsewher e: No Locat ion: [facility] S ource: EHR Rn Surgical doris: N Jairti ce ID: 0001 Roel lable Time: 03:15:00 PM Emma conrad [facility] 10:31:40 Gestatio n period, 29 weeks [id number] Completed 201909/23/2021 29 weeks gestatio n of pregnanc y;Record ed Elsewher e: No Locat ion: [facility] S ource: EHR Rn Surgical doris: N Practi ce ID: 0001 Roel lable Time: 03:15:00 PM Emma conrad, [facility] 10:29:27 Gestatio n period, 30 weeks [id number] Completed 201909/23/2021 30 weeks gestatio n of pregnanc y;Record ed Elsewher e: No Locat ion: [facility] S ource: EHR Rn Surgical doris: N Jairti ce ID: 0001 Roel lable Time: 10:45:00 AM Emma Cordova [place], [facility] 10:29:29 Uterine size for dates discrepa ncy Completed 201909/23/2021 Uterine size-neeta e discrepa ncy, second trimeste r;Record ed Elsewher e: No Locat ion: Edith alicia [facility] S ource: EHR Rn Surgical doris: N Practi ce ID: 0001 Roel lable Time: 10:45:00 AM Emmapat conrad, [facility] 10:31:[address] Concept Completed 201909/23/2021 Decrease d movement s, third trimeste r, unsp;Rec orded Elsewher e: No Locat ion: [facility] S ource: EHR Rn Surgical doris: N Practi ce ID: 0001 Roel lable Time: 11:30:00 AM Emmapat conrad, [facility] 10:31:14 Prematur e rupture of membrane s [id number] Completed 201909/23/2021 Evelin ROM, 7th0 betw rupt & onst labr, unsp weeks of gest;Pra ctice ID: 0001 Emma conrad, [facility] 10:30:51 Gestatio n period, 32 weeks [id number] Completed 201909/23/2021 32 weeks gestatio n of pregnanc y;Record ed Elsewher e: No Locat ion: Curtis vargas [facility] S ource: EHR Rn Surgical doris: N Practi ce ID: 0001 Roel lable Time: 11:00:00 AM Emma conrad [facility] 10:29:30 Gestatio n period, 33 weeks [id number] Completed 201909/23/2021 33 weeks gestatio n of pregnanc y;Record ed Elsewher e: No Locat ion: [facility] S ource: EHR Rn Surgical doris: N Practi ce ID: 0001 Roel lable Time: 03:00:00 PM Emma conrad [facility] 10:29:32 Gestatio n period, 34 weeks [id number] Completed 201909/23/2021 34 weeks gestatio n of pregnanc y;Record ed Elsewher e: No Locat ion: [facility] S ource: EHR Rn Surgical doris: N Practi ce ID: 0001 Roel lable Time: 11:00:00 AM Emma conrad [facility] 10:29:34 False labor before 37 complete d weeks of gestatio n [id number] Completed 201909/23/2021 False labor before 37 complete d weeks of gest, third tri;Prac dante ID: 0001 Emma conrad [facility] 10:29:08 Gestatio n period, 35 weeks [id number] Completed 201909/23/2021 35 weeks gestatio n of pregnanc y;Record ed Elsewher e: No Locat ion: [facility] S ource: EHR Rn Surgical doris: N Practi ce ID: 0001 Roel lable Time: 11:30:00 AM Emam conrad, [facility] 10:29:36 Gestatio nal diabetes mellitus [id number] Completed 201909/23/2021 Gestatio nal diabetes in pregnanc y, insulin controll ed;Recor ded Elsewher e: No Locat ion: Curtis vargas [facility] S ource: EHR Rn Surgical doris: N Practi ce ID: 0001 Roel lable Time: 10:30:00 AM Emma conrad, [facility] 10:29:52 Gestatio n period, 36 weeks [id number] Completed 201909/23/2021 36 weeks gestatio n of pregnanc y;Practi ce ID: 0001 Emma conrad, [facility] 10:29:38 Pregnanc y-induce d hyperten bo Completed 201909/23/2021 Gestatio nal htn w/o signific ant proteinu anais, third trimeste r;Practi ce ID: 0001 Emma conrad, [facility] 10:30:49 Gestatio n period, 37 weeks [id number] Completed 201909/23/2021 37 weeks gestatio n of pregnanc y;Record ed Elsewher e: No Locat ion: Curtis vargas [facility] N Practi ce ID: 0001 Roel lable Time: 10:30:00 AM Emma conrad, [facility] 10:29:40 False labor at or after 37 complete d weeks of gestatio n [id number] Completed 201909/23/2021 False labor at or after 37 complete d weeks of gestatio n;Practi ce ID: 0001 Emma conrad, [facility] 10:29:06 Gestatio n period, 38 weeks [id number] Completed 201909/23/2021 38 weeks gestatio n of pregnanc y;Record ed Elsewher e: No Locat ion: Curtis vargas [facility] S ource: EHR Rn Surgical doris: N Practi ce ID: 0001 Roel lable Time: 10:30:00 AM Emma conrad, [facility] 10:29:41 Term pregnanc y delivere d [id number] Completed 201909/23/2021 Encounte r for full-ter m uncompli cated delivery ;Practic e ID: [id number] Emma conrad, [facility] 10:31:36 Single live from singleto n pregnanc y [id number] Completed 201909/23/2021 Single live ;Pr actice ID: [id number] Emma conrad, [facility] 10:31:03 Gestatio n period, 39 weeks [id number] Completed 201909/23/2021 39 weeks gestatio n of pregnanc y;Practi ce ID: 0001 Emma conrad, [facility] 10:29:43 Past pregnanc y history of gestatio nal diabetes mellitus 149852970 Active 2022 Tiffanie Flores MD [address], [place], [address], [facility] 3 19:36:59 Pregnanc y 77140161 Completed 202208/16/2023 José conrad [facility] 3 14:52:19 Gestatio nal diabetes mellitus 58903600 Completed 2022 h/o gdm2A. Checking BS QID, serial growth, antenata l testing José ocnrad [facility] 14:52:11 Problem Notes None recorded. Procedures Surgical History Date Name Laterality Status Provider Name and Address Organization Details Recorded Time 06/07/20 25 Dilation and Curettage completed Emily Millard [facility] 06/18/2025 14:42:30 02/14/20 25 Date of Last Pap Smear completed Tiffanie Boothe [facility] 06/01/2025 12:11:46 08/30/20 24 IUD Removal completed Maria T Carlton CNM [address], [place], [address], [facility] 08/31/2024 13:59:56 08/04/20 24 IUD Insertion completed Maria T Carlton CNM [address], [place], [address], [facility] 08/05/2024 08:44:48 07/29/20 22 Hysteroscopy completed Maria T Carlton CNM [address], [place], [address], [facility] 07/29/2022 08:52:41 07/29/20 22 Hysteroscopy completed Emma Cordova [facility] 07/29/2022 08:35:27 07/21/20 22 IUD Removal completed Swetha Schwab [facility] 07/21/2022 12:21:30 04/17/20 20 IUD Insertion completed Swetha Schwab [facility] 04/17/2020 12:09:21 03/20/20 20 IUD Insertion completed Swetha Schwab [facility] 03/20/2020 12:11:51 11/22/19 18 Appendectomy completed Emma Cordova [facility] 10/01/2020 19:16:40 11/22/19 14 completed Kayla Fournier [facility] 10/08/2021 16:13:03 11/22/19 14 colonoscopy completed Emma Cordova [facility] 09/23/2021 10:34:09 11/22/19 13 Dilation and curettage completed Emma Cordova [facility] 09/23/2021 10:34:16 11/22/19 00 tonsillectomy completed Emmapat Cordova [facility] 09/23/2021 10:34:23 Imaging Results None recorded. Procedure Notes None recorded. Medical Equipment None Reported. Allergies Allergen ID Allergen Name Allergen Category Reaction Reaction Severity Criticality Documentation Date Start Date Code Code System Note Provider Name and Address Organization Details Recorded Time prednison e medicatio n Not available Not available Not available 01/05/2023 8640 RxNorm Emma Cordovamyra conrad [facility] 3 10:49:28 2666 amoxicill in medicatio n Not available Not available Not available 10/01/2020 723 RxNorm Emma conrad [facility] 1 10:27:49 68440 aluminum aspirin Not available Not available Not available Not available 10/08/20252020 611 RxNorm unrec ogniz ed react ion (text : Other , code: 21493 07) (from [facility]) Not Available [employer] - External Data Service - prod 5 09:39:58 91 aspirin medicatio n Not available Not available Not available 03/04/2020 1191 RxNorm Caterina Miles conrad [facility] 0 17:51:36 Medications Name Sig [...] Prescrib ed Elsewher e: No Locat ion: [facility] odify By: raul z Encoun ter [...] Prescrib ed Elsewher e: No [facility] By: raul z Encoun ter DateTime : 10/10/20 15 11:00:00 AM Not Available Not Available Not Available prednison e 20 mg tablet TAKE 3 TABLETS BY MOUTH EVERY DAY FOR 5 DAYS 01/05 completed Not Available Not Available Not Available Diflucan 150 mg tablet take 1 tablet by oral route once 04/26 completed Prescrib ed Elsewher e: No Locat ion: [facility] odify By: annalisa turner DateTime : 03/29/20 [...] Prescrib ed Elsewher e: No Locat ion: [facility] odify By: amkuhl E ncounter DateTime : 07/21/20 18 04:08:38 PM Not Available Not Available Not Available dicyclomi ne 20 mg tablet 10/01 completed Not Available Not Available Not Available betametha sone valerate 0.1 % topical cream apply by topical route every day a thin layer to the affected area(s) 02/01 completed Prescrib ed Elsewher e: No [facility] By: [email or web address] z Encoun ter DateTime [...] Prescrib ed Elsewher e: No Locat ion: [facility] odify By: annalisa turner DateTime : 09/12/20 [...] Prescrib ed Elsewher e: No Locat ion: [facility] odify By: jill palomo DateTime : 04/03/20 [...] Prescrib ed Elsewher e: No Locat ion: [facility] odify By: raul correa DateTime : 09/02/20 15 09:21:34 AM Not Available Not Available Not Available norethind jatinder (contrace ptive) 0.35 mg tablet TAKE 1 TABLET BY MOUTH EVERY DAY 02/13 completed Not Available Not Available Not Available Zoloft 25 mg tablet take 1 tablet by oral route every day 03/29 completed Prescrib ed Elsewher e: No Locat ion: [facility] odify By: raul correa DateTime : [...] Prescrib ed Elsewher e: No Locat ion: [facility] odify By: annalisa turner DateTime : [...] Prescrib ed Elsewher e: No [facility] By: amemmanuel palomo DateTime : 08/01/20 02:08:52 PM Not [...] Prescrib ed Elsewher e: No [facility] By: lexi correa DateTime : [...] Prescrib ed Elsewher e: No Locat ion: [facility] odify By: margaret Barroso r DateTime : 05/28/20 17 11:15:00 AM Not Available Not Available Not Available Humulin N NPH U-100 Insulin KwikPen 100 unit/mL (3 mL) subcutane ous 09/03 completed Not Available Not Available Not Available Fora Y08-E18-N 10-D20 strips-la ncets 30 gauge combo pack checking BS QID fasting and 1hr pp 07/21 completed Prescrib ed Elsewher e: No [facility] odify By: rubi Barroso r DateTime : 11/27/19 20 11:22:44 AM Not Available Not Available Not [...] ed Elsewher e: No Locat ion: [facility] odify By: annalisa turner DateTime : 09/13/20 18 09:42:56 AM Not [...] Not Available Not Available Not Available too de 06/01 completed Not Available Not Available Not Available Dexcom G7 Sensor device TEST BLOOD GLUCOSE DIRECTED . CHANGE EVERY 10 DAYS 07/23 completed Not Available Not Available Not Available Vitals Date Recorded Body height Body mass index (BMI) Body weight Systolic And Diastolic Provider Name and Address Organization Details Last Updated DateTime 06/18/2025 157.48 cm 33.8 kg/m2 83201.59 g 123/80 mm[Hg] [facility] 06/18/2025 14:41:08 Date Recorded Body height Body mass index (BMI) Body weight Systolic And Diastolic Provider Name and Address Organization Details Last Updated DateTime 10/15/2025 157.48 cm 33.8 kg/m2 69677.59 g 119/73 mm[Hg] Emily Millard [facility] 10/15/2025 14:32:05 Social History Question Answer Notes LastModified by Organizat ion Details LastModified Time Tobacco Smoking Status Former Smoker Emma conrad [facility] 10/01/2020 15:14:21 If You Are , What Was Your Level Of Alcohol Consumption Prior To ? Occasional [email or web address] Information not available 02/01/2023 Are You Blind Or Do You Have Difficulty Seeing? No [email or web address] Information not available 09/23/2021 In The 14 Days Before Symptom Onset, Have You Had Close Contact With A Laboratory-confir med COVID-19 While That Case Was Ill? No [email or web address] Information not available 02/01/2023 In The 14 Days Before Symptom Onset, Have You Had Close Contact With A Person Who Is Under Investigation For COVID-19 While That Person Was Ill? No [email or web address] Information not available 02/01/2023 Have You Been To An Area Known To Be High Risk For COVID-19? No [email or web address] Information not available 02/01/2023 Are You Deaf Or Do You Have Serious Difficulty Hearing? No [email or web address] Information not available 09/23/2021 What Type Of Diet Are You Following? REGULAR [email or web address] Information not available 09/23/2021 What Was The Date Of Your Most Recent Tobacco Screening? 08/30/2024 [email or web address] Information not available 08/30/2024 Do You Use Your Seat Belt Or Car Seat Routinely? Yes [email or web address] Information not available 02/01/2023 Do You Have Smoke And Carbon Monoxide Detectors In Your Home? Yes [email or web address] Information not available 02/01/2023 How Much Tobacco Do You Smoke? No [email or web address] Information not available 05/21/2020 Do You Use Sunscreen Routinely? Yes [email or web address] Information not available 02/01/2023 Has Tobacco Cessation Counseling Been Provided? No [email or web address] Information not available 02/01/2023 Do You Have Difficulty Walking Or Climbing Stairs? No [email or web address] Information not available 07/21/2022 Sex: Unknown Functional Status Question Answer Note LastModified by Organizat ion Details LastModified Time Do you use any illicit or recreational drugs? No Information not available 02/01/2023 Do you or have you ever used any other forms of tobacco or nicotine? No Information not available 02/01/2023 What is your level of alcohol consumption? None [email or web address] Information not available 02/01/2023 Do you or have you ever used smokeless tobacco? Never used smokeless tobacco [email or web address] Information not available 05/21/2020 Are you able to walk independently without assistance or assistive devices? YESWOREST [email or web address] Information not available 09/23/2021 Are you able to care for yourself independently? Yes [email or web address] Information not available 07/21/2022 Do you have difficulty dressing, bathing, grooming, or toileting? No [email or web address] Information not available 07/21/2022 Do you or have you ever used e-cigarettes or vape? Never used electronic cigarettes [email or web address] Information not available 05/21/2020 What is your exercise level? Occasional walking [email or web address] Information not available 03/05/2020 Mental Status Question Answer Note LastModified by Organization D etails LastModified Time Do you feel stressed (tense, restless, nervous, or anxious, or unable to sleep at night)? [id number] [email or web address] Information not available 02/01/2023 Family History Relationship [...] ICD10 Code Diagnosis IMO Codes Diagnosis Note [id number] Swetha Schwab CNM [facility] [address] [address] 03/05/2020 14:17:28 03/07/2020 11:23:54 care 897589030 Z39.2 Continue to watch for signs/symp toms [...] today's plan if desired Contracept ion education 342861059 Z30.09 Discussed all control options and pt [...] weeks post . [id number] Swetha Schwab CNM [facility] [address] [address] 03/20/2020 10:56:39 03/20/2020 12:28:56 Insertion of intrauterine contraceptive device 76977117 Z30.430 Vaginitis 54682549 N76.0 Discussed use of mild soap like dove or ivory, cotton underwear w/out dye, hypoallerg enic detergent, wipe from front to back, avoid tub baths, keep perineum clean and dry, d/c use of baby wipes. Encouraged daily intake of yogurt or womens health probiotic. Internal and external affirm collected. Will treat with flagyl for possible BV. Very slight odor noted on exam. [id number] Swetha Schwab [facility] [address],[place] [address] 04/17/2020 10:28:01 04/17/2020 12:36:54 IUD check 475578752 Z30.431 Pt doing well. No complaints . Unable to see strings. U/S ordered. [id number] Venkat Valdez MD [facility] [address],[place] [address] 04/17/2020 10:50:50 04/17/2020 11:23:56 Mechanical complication of intrauterine contraceptive device 153259145 T83.39XA [id number] Maria T Carlton [facility] [address],[place] [address] 05/21/2020 10:26:33 05/21/2020 11:40:42 Vaginitis 79722476 N76.0 Mass of right breast 833 4737251 5142701 N63.10 [id number] Maria T Carlton [facility] [address],[place] [address] 10/01/2020 14:54:13 10/01/2020 17:52:14 Mastitis associated with 493530833 O91.23 [id number] [facility] [address],[place] [address] 09/23/2021 09:23:09 09/23/2021 11:11:03 Dysmenorrhea 452049589 N94.6 [id number] Venkat Valdez MD [facility] [address],[place] [address] 09/23/2021 09:21:32 09/23/2021 10:11:19 Pain in pelvis 74657370 R10.2 [id number] [facility] [address],[place] [address] 09/24/2021 10:04:00 09/24/2021 11:52:09 [id number] [facility] [address],[place] [address] 10/13/2021 09:38:43 10/13/2021 12:11:58 Gynecologic examination 66009437 Z01.419 Take Calcium with Vitamin D 1200mg [...] paper copy of today's plan if desired. [id number] MD Cam Rajput [address],[place] [address] 11/03/2021 09:19:52 11/03/2021 12:45:09 Pain in pelvis 36665983 R10.2 [id number] MD Cam Rajput [address] [address] 03/17/2022 11:51:43 03/17/2022 12:33:52 Pain in pelvis 18306874 R10.2 [id number] Venkat Valdez MD [facility] [address],[place] [address] 07/17/2022 13:14:21 07/17/2022 13:59:55 Uncertain viability of 758979680 O36.80X0 Z3A.00 [id number] Venkat Valdez MD [facility] [address] [address] 07/17/2022 14:13:20 07/17/2022 14:30:02 test positive 907113597 Z32.01 Pt here with 3 faint positive [...] to lab for HCG. Pt verbalized undertstan chaparrita. ALEXEY jung [id number] Swetha Schwab CNM [facility] [address] [address] 07/21/2022 10:26:55 07/22/2022 03:50:54 Urinary symptoms 686001183 R39.9 Removal of intrauterine device 70558795 Z30.432 NO CHARGE VISITJie ble to remove. Will need to schedule surgical removal. Pt has specifical ly requested female. She has met Maria T in the past. [facility] management 217129423 Z30.9 Discussed all control options in great [...] verbalized understand ing. Planning removal of IUD. [id number] Maria T Carlton [facility] [address],[place] [address] 07/24/2022 10:09:28 07/24/2022 12:56:34 Mechanical complication of intrauterine contraceptive device 436785930 T83.39XA [id number] Maria T Carlton [facility] [address],[place] [address] 07/29/2022 08:31:32 07/29/2022 10:16:00 Screening procedure 44678820 Z13.9 Mechanical complication of intrauterine contraceptive device 821324239 T83.39XA [id number] Venkat Valdez MD [facility] [address],[place] [address] 12/24/2022 12:30:14 12/24/2022 13:38:57 Abdominal pain in early 150834755 Z33.1 Z3A.01 [id number] Tiffanie Flores MD [facility] [address] [place] [address] 01/05/2023 09:52:34 01/05/2023 11:08:07 [id number] Tiffanie Flores MD [facility] [address] [place] [address] 01/05/2023 09:52:55 01/07/2023 11:38:15 Amenorrhea 87407054 N91.2 test positive 836598147 Z32.01 Moderate h yperemesis gravidarum 825795237 O21.0 Maternal o besity complicating , childbirth and the puerperium, antepartum 8047185253 07 O99.211 bmi 38 Past pregn maryjane history of gestational diabetes mellitus 556555069 Z86.32 [id number] Tiffanie Flores MD [facility] [address],[place] [address] 01/20/2023 10:14:15 01/20/2023 10:44:31 [id number] Tiffanie Flores MD [facility] [address],[place] [address] 02/01/2023 11:22:12 02/01/2023 12:06:15 screening 311235743 Z36.82 [id number] Swetha Schwab [facility] [address],[place] [address] 02/01/2023 11:23:56 02/02/2023 17:42:44 screening 179087981 Z36.89 Nausea and vomiting 1693 2000 R11.2 [id number] Venkat Valdez MD [facility] [address],[place] [address] 02/18/2023 12:23:48 02/18/2023 13:10:32 Abdominal pain in 843424484 O99.891 R10.9 Z3A.14 [id number] Swetha Schwab [facility] [address],[place] [address] 03/04/2023 10:53:15 03/04/2023 11:50:57 Routine care 931401060 Z34.92 [id number] Venkat Valdez MD [facility] [address],[place] [address] 03/09/2023 11:49:22 03/09/2023 13:36:29 Spotting per vagina in 869652694 O26.859 Z3A.17 [id number] MD Cam Rajput [address],[place] [address] 03/24/2023 09:55:15 03/24/2023 11:17:49 screening 948229520 Z36.3 [id number] Maria T Carlton [facility] [address],[place] [address] 04/02/2023 10:39:24 04/02/2023 14:40:47 Routine care 119560993 Z34.92 [id number] Maria T Carlton [facility] [address],[place] [address] 04/28/2023 17:16:58 04/28/2023 18:36:35 Routine care 373935976 Z34.92 [id number] Maria T Carlton [facility] [address],[place] [address] 05/26/2023 12:36:23 05/26/2023 13:51:10 Routine care 228823108 Z34.92 [id number] Maria T Carlton [facility] [address],[place] [address] 06/09/2023 12:25:04 06/09/2023 13:00:34 Routine care 077598753 Z34.92 [id number] Venkat Valdez MD [facility] [address],[place] [address] 06/21/2023 12:25:43 06/21/2023 13:11:46 Abdominal pain in 469343527 O99.891 R10.9 Z3A.32 [id number] Venkat Valdez MD [facility] [address],[place] [address] 06/25/2023 11:42:53 06/25/2023 12:39:59 Gestational diabetes mellitus class A2 24225620 O24.414 [id number] Maria T Carlton [facility] [address],[place] [address] 06/25/2023 11:43:21 06/25/2023 13:14:41 Routine care 187588957 Z34.92 Pruritic disorder 259594 002 L29.9 [id number] Venkat Valdez MD [facility] [address],[place] [address] 07/02/2023 11:59:27 07/02/2023 12:37:35 Gestational diabetes mellitus class A2 54016885 O24.414 [id number] [facility] [address],[place] [address] 07/02/2023 12:00:26 07/02/2023 14:15:10 Routine care 293350445 Z34.92 [id number] Venkat Valdez MD [facility] [address],[place] [address] 07/09/2023 11:54:33 07/09/2023 12:41:17 Gestational diabetes mellitus class A2 65590052 O24.414 [id number] [facility] [address],[place] [address] 07/09/2023 11:54:55 07/09/2023 13:40:47 Routine care 319253029 Z34.92 [id number] Venkat Valdez MD [facility] [address],[place] [address] 07/16/2023 11:31:37 07/16/2023 13:04:56 Gestational diabetes mellitus class A2 68175142 O24.414 [id number] [facility] [address],[place] [address] 07/16/2023 11:31:57 07/16/2023 13:50:03 Routine care 284325294 Z34.92 [id number] Venkat Valdez MD [facility] [address],[place] [address] 07/23/2023 11:55:24 07/23/2023 15:31:33 Gestational diabetes mellitus class A2 30117267 O24.414 [id number] [facility] [address],[place] [address] 07/23/2023 11:56:11 07/23/2023 14:20:32 Routine care 517545474 Z34.92 [id number] [facility] [address],[place] [address] 09/03/2023 10:37:34 09/03/2023 14:51:03 care 771673465 Z39.0 start slynd # samples given f/u wwe [id number] Maria T Carlton [facility] [address],[place] [address] 08/04/2024 14:02:09 08/05/2024 10:49:38 Screening procedure 88889132 Z13.9 Insertion of intrauterine contraceptive device 08296221 Z30.430 pt vinny well f/u one month iud check [id number] Venkat Valdez MD [facility] [address],[place] [address] 08/28/2024 14:06:50 08/28/2024 15:00:15 Pain in pelvis 21976649 R10.2 N93.9 [id number] [facility] [address],[place] [address] 08/28/2024 14:38:29 08/28/2024 14:54:07 Urinary symptoms 192697059 R39.9 [id number] [facility] [address],[place] [address] 08/30/2024 18:12:03 08/31/2024 10:12:39 Screening procedure Z13.9 Uses IUD (intrauterine device) contraception 478108729 [facility].5 [facility] 605219984 Z30.9 start slynd daily, give one month to be effective f/u wwe [id number] CLAUDETTE SINGH MD [facility] [address],[place] [address] 11/08/2024 16:19:39 11/13/2024 02:55:06 Cystocele 059358224 N81.10 - patient reports worsening bulging sensation, pelvic pain during intercours e- apex and posterior compartmen t well supported on exam; grade 2 cystocele noted- recommend pelvic floor PT as first line to strengthen pelvic floor muscles- may need further evaluation from urogyn if PT does not improve symptoms Irregular intermenstrual bleeding 51120967 N92.1 - periods previously well controlled with Slynd- no inciting events- no laceration s or abrasions on exam- will evaluate with pelvic US [id number] Venkat Valdez MD [facility] [address] [address] 12/01/2024 11:57:07 12/01/2024 13:25:19 Abnormal uterine bleeding 5595112161 9100 N93.9 [id number] CLAUDETTE SINGH MD [facility] [address] [address] 01/17/2025 15:22:43 01/18/2025 05:09:05 Reduced libido 0072089 R68.82 - patient reports long history of hypoactive sexual desire- symptoms present prior to pregnancie s- disruptive to relationsh ip with partner- no increased stress, no dyspareuni a- discussed no role for testostero ne supplement ation in premenopau alycia patients given risk of irreversib le side effects- discussed Mali yue, Addyi, and Vyleesi; patient would like to start Addyi therapy Dysmenorrhea 513698883 N 94.6 - patient reports periods are now regular on mini pill however still painful and heavy- pelvic US normal, no structural cause seen- suspicious for endometrio sis given cyclic heavy and painful bleeding- periods improved but not at ideal control on mini pill- Slynd not approved by insurance- will trial Orlissa for endometrio sis pain- rtc 2 months for med check [id number] KATLYN Nation [facility] [address] [address] 02/13/2025 16:23:26 02/14/2025 23:08:15 Gynecologic examination 47065546 Z01.419 WWEBC - condomsPap - done todaySTI [...] than 25 dietary consult advised. Questions answered. [id number] Venkat Valdez MD [facility] [address] [place] [address] 06/01/2025 11:25:47 06/01/2025 12:15:53 Finding of menstrual bleeding 519740848 Z36.87 Z3A.01 579952 [id number] Maria T Carlton [facility] [address],[place] [address] 06/01/2025 11:26:27 06/01/2025 13:07:54 Threatened miscarriage 58769429 O20.0 83393 f/u hcg and possible USprecauti ons reviewedf/ u pending lab resultscal l if any bleeding [id number] Venkat Valdez MD [facility] [address] [place] [address] 06/07/2025 12:31:40 06/09/2025 03:53:07 [id number] Venkat Valdez MD [facility] [address],[place] [address] 06/18/2025 14:03:53 06/18/2025 15:21:47 Miscarriage 49324549 O03.9 47720 this patient presents for postop follow-up. She is 1 week postop from a suction D&C. She is recovering normally. Her bleeding is minimal. She has no foul-smell ing vaginal discharge. She denies any nausea, vomiting, fever, chills. We discussed contracept ion. We discussed future . She will follow up for a repeat test. [id number] Venkat Valdez MD [facility] [address],[facility] [place] [address] 10/08/2025 10:54:40 10/08/2025 11:44:42 Threatened miscarriage 13856535 O20.0 Z3A.01 18136 [id number] CLAUDETTE SINGH MD [facility] [address],[facility] [place] [address] 10/15/2025 13:26:38 10/15/2025 13:50:58 Complication occurring during [id number] O99.891 Z3A.01 [id number] Venkat Valdez MD [place] [address],[place] [address] 10/15/2025 13:27:10 10/15/2025 14:59:28 Acute urinary tract infection [id number] N39.0 [id number] Gestationa l diabetes mellitus [id number] O24.410 [id number] this patient is a 30-year-ol d female [...] Member ID Guarantor Name 10/15/2025 1 [employer] [id number] 1 Buddy Yusuf [id number] 10/02/2025 PAYMENT PLAN 05/02/2025 1 [facility] (MEDICAID HMO) [id number] Mariel Gilbert [id number] Notes Date Note Type Note Provider Name and Address Organization Details Recorded Time 06/18/2025 text/html this patient presents for postop follow-up. She is 1 week postop from a suction D&C. She is recovering normally. Her bleeding is minimal. She has no foul-smelling vaginal discharge. She denies any nausea, vomiting, fever, chills. We discussed contraception. We discussed future . She will follow up for a repeat test. Venkat Valdez MD [address], [place], [address], [facility] 06/18/2025 15:14:13 10/15/2025 text/html OB ProblemReport ed by Patient [...] minutes on her care in total. Venkat Valdez MD [address], [place], [address], [facility] 10/15/2025 14:58:31 OBGyn Episode Ob Episode Information Episode Created Date Number of Fetuses Patient Bloodtype Patient rh Status Prepregnancy Weight lbs Domestic Partner Domestic Partner Phone Father Name Nutrition And Dietetics Instructor Status 03/05/20 20 1 CLOSED Fetus Data [...] Domestic Partner Domestic Partner Phone Father Name Nutrition And Dietetics Instructor Status 03/05/20 20 1 CLOSED Fetus Data [...] Domestic Partner Domestic Partner Phone Father Name Nutrition And Dietetics Instructor Status 03/05/20 20 1 CLOSED Fetus Data [...] Domestic Partner Domestic Partner Phone Father Name Nutrition And Dietetics Instructor Status 03/05/20 20 1 CLOSED Fetus Data [...] Domestic Partner Domestic Partner Phone Father Name Nutrition And Dietetics Instructor Status 03/05/20 20 1 CLOSED Fetus Data [...] Domestic Partner Domestic Partner Phone Father Name Nutrition And Dietetics Instructor Status 02/02/20 23 1 A Positive 213 buddy turner CLOSED Fetus Data First Name Last Name Admitted to NICU Weight (g) Sex Living Outcome Pediatric Complications Fetus ID Race Codes Race Delivery Type 3486.98 85 M true Full Term ASSISTED DELIVERY, CPAPx2 min, balance assembler at delivery [id number] Vacuum Assisted Vaginal Delivery Problems Problem Notes low TSH - repeat 16wks/- neuro appt with Dr. Zamora Appt: 06/22/23 u/s & NST 1030aMFM rec: GDM: BS QID, NPH 6 units AM, 14 units HS, 4 units with lunch, and 2 units with dinner, weekly CDE check ins, BID kick counts 28wks, 32 week twice wkly NST, weekly BPP, serial growth u/s, 2 hr gtt 4wks PP, BF rec. Obesity: serial growth, testing.Hx shoulder dystocia: [facility] consult 36-37 wks repeat growth at 36 wks to discuss vaginal delivery safety.Subclinical hyperthyroid: repeat TSH 3r trimesterNeurology in April, consider daily magnesium supplement, PTL, pre-e precautionsPer pt: NST @ [facility] Tuesdays NST/OB at [facility] on Fridays Problem Name Start Date End Date Resolution Snomed Code Not e Cholestasis [id number] 07/07 - P er Scarlett with [facility] - she spoke with Dr. Dangelo and to cont ursodiol and anticipate/assume cholestasis based on presentation. Rpt labs next week before [facility] appt on 07/21. Might recommend 37-38wk del Gestational diabetes mellitus 02/18/2023 [id number] h/o gdm2A. [facility] BS QID, serial growth, testing Gestational diabetes mellitus class A2 [id number] 5u NPH AM, 5u Lispro Lunch, 15u NPH @ HS - MFM 03/31 [facility] Isidro Calculation Initial Isidro Date Initial [...] Weight in lbs Pre/Post Dialysis Refused Weight 213.745491190436 BP Diastolic BP Location Tested BP Systolic [...] Weight in lbs Pre/Post Dialysis Refused Weight 210.425109868820 BP Diastolic BP Location Tested BP Systolic [...] side, mainly has abdominal cramping. Reviewed with [facility] and to send urine for UA/UC and [...] Weight in lbs Pre/Post Dialysis Refused Weight 207.776427606195 BP Diastolic BP Location Tested BP Systolic [...] Weight in lbs Pre/Post Dialysis Refused Weight 209.976485765977 BP Diastolic BP Location Tested BP Systolic [...] Weight in lbs Pre/Post Dialysis Refused Weight 212.54120829279 BP Diastolic BP Location Tested BP Systolic BP Type 75 138 Fetus Heart Rate Present A 146 Present Fetus Movement A Yes Comments patient is having excessive thirst, cramping, pressure, numbness in legs, back pain, discharge, nausea and vomiting. reviewed precautions, EFW per pt at [facility] 50%, have been changing her insulin, [...] Weight in lbs Pre/Post Dialysis Refused Weight 212.01514313677 BP Diastolic BP Location Tested BP Systolic BP Type 74 110 Fetus Heart Rate Present A 140 Fetus Movement A Yes Comments patient is having fatigue, t iredness, discharge, swelling, nausea and vomiting. check vitd, talking to m about sugars, dropping in the middle of [...] Weight in lbs Pre/Post Dialysis Refused Weight 214.268994195623 BP Diastolic BP Location Tested BP Systolic BP Type 78 126 Fetus Heart Rate Present Fetus Movement A Yes Comments patient is having stomach pa in, back pain, cramping, discharge, swelling, nausea, vomiting, and itching. growth increased, consult at [facility], will check bile acids and start [...] Weight in lbs Pre/Post Dialysis Refused Weight 215.560036441194 BP Diastolic BP Location Tested BP Systolic BP Type 84 124 Fetus Heart Rate Present Fetus Movement A Yes Comments patient is having itching, l eaking or discharge, cramping and nausea. bile acids wnl, ursadiol was working, came off and now itching is back all over iban back of neck and palms of hands, restart ursadiol, redraw bile acids, consider 37 week delivery, mfm managing blood sugar, has growth us at the end of the month Flowsheet Date 07/09/2023 Guerra Score Blood Edema Fundus Height Fundus Units Glucose Ketones Leukocytes Nitrite Labor Signs Protein Cervic Dilation Cervic Effacement Cervic Station Type Weight in lbs Pre/Post Dialysis Refused BP Diastolic BP Location Tested BP Systolic BP Type Fetus Heart Rate Present Fetus Movement Comments Flowsheet Date 07/09/2023 Geurra Score Blood Edema Fundus Height Fundus Units Glucose Ketones Leukocytes Nitrite Labor Signs Protein Cervic Dilation Cervic Effacement Cervic Station neg trace none trace Type Weight in lbs Pre/Post Dialysis Refused Weight 215.211461123920 BP Diastolic BP Location Tested BP Systolic [...] Weight in lbs Pre/Post Dialysis Refused Weight 217.189613937837 BP Diastolic BP Location Tested BP Systolic [...] Weight in lbs Pre/Post Dialysis Refused Weight 218.166992275803 BP Diastolic BP Location Tested BP Systolic [...] At Estimated Date of Delivery false Thalassemia (English, Martiniquais, Mediterranean, Or Background): MCV < 80 false Neural Tube Defect (Meningom yelocele, Spina Bifida, Or Anencephaly) false Congenital Heart Defect false Down Syndrome false Driss-Sachs (eg, Worship, Cajun, Thai-Singaporean) f alse Mariluz Disease false Sickle Cell Disease Or Trait () false Hemophilia Or Other Blood Disorders false Muscular Dystrophy false Cystic Fibrosis false Rousseau's Chorea false Intellectual Disability/Autism false If Yes, [...] Comments 3 Induce d Regional-Ep idural 37.1 Venkat Poon MD Cholestas is, Gestation al diabetes mellitus class A2, prolonged ROM, arrest of descent, maternal exhaustio n, Discharge Information Feeding Method Contraceptive Method Maternal HG B and HCT Levels Ob Episode Information Episode Created Date Number of Fetuses Patient Bloodtype Patient rh Status Prepregnancy Weight lbs Domestic Partner Domestic Partner Phone Father Name Nutrition And Dietetics Instructor Status 06/18/20 25 1 CLOSED Fetus Data First Name Last Name Admitted to NICU Weight (g) Sex Living Outcome Pediatric Complications Fetus ID Race Codes Race Delivery Type , Spontane ous [id number] Isidro Calculation Initial Isidro Date Initial Exam [...] Complications Tubal Sterilization Discharge Date Comments 5 Discharge Information Feeding Method Contraceptive Method Maternal HG B and HCT Levels
--- NOTE | 2025-10-22 17:06 | ED_ITS ---
HPI - General Adult General Chief complaint: Nausea/Vomiting/Diarrhea Stated complaint: 8 weeks preg, n/v Focused HPI: 30 year old female currently 8 weeks presenting with nausea and vomiting for three days. Also reports significant lower abdominal cramping. Denies vaginal complaints, urinary concerns, fevers/chills, or di arrhea. She is prescribed Zofran and has a significant history of hyperemesis gravidarum. Also states a history of gestational diabetes. GENERAL: No acute distress. HEAD: Normocephalic, atraumatic. CHEST: Clear to auscultation. ?No respiratory distress. HEART: Regular rate and rhythm.? NEURO: ?Alert and oriented x3. Patient screened in triage and initial orders placed.? ?Additional care and dis position to be based upon?diagnostic testing and treatment. Related Data Home Medications ?Medication ?Instructions ?Recorded ?Confirmed ?Last Taken ?Type ondansetron 8 mg disintegrating 8 mg PO Q12H nausea/vo miting 10/22/25 10/22/25 10/22/25 08:30 History tablet Allergies Allergy/AdvReac Type Severity Reaction Status Date / Time prednisone Allergy Rash Verified 10/22/25 19:08 [facility] Past Medical History Medical History History of smoking Marijuana abuse Obesity (BMI 35.0-39.9 without comorbidity) Headache Allergies Gestational diabetes Gestational hypertension Surgical History Surgical History Hx laparoscopic cholecystectomy 09/11/24 Gilberto Guerrero MD History of tonsillectomy History of appendectomy Family History Family History Grandparent Diabetes mellitus Depression Cancer Hypertension Daughter No problems noted. Father Depression Mother Depression Diverticulitis Crohn disease Social History Social History Smoking status: Former smoker Tobacco type: cigarettes Second hand tobacco smoke exposure: No Smoking end date: 11/22/18 Alcohol intake: never Substance use: never Substance use type: marijuana Lack of Transportation: No Lack of Food: Never True Current Housing: I Have Housing Concerned About Future Housing: No Difficulty Paying Gas/Electric Bills: No Difficulty Paying for Meds: No Currently Unemployed: No Education: High School Diploma/GED Difficulty w/ Childcare or Family Care: No Gender identity (if verbalized by the patient): Female Spiritual care concerns: No Course Vital Signs Vital signs: Vital Signs Temperature 97.7 F 10/22/25 15:22 Pulse Rate 100 10/22/25 15:22 Respiratory Rate 16 10/22/25 15:22 Blood Pressure 113/80 10/22/25 15:22 Pulse Oximetry 100 10/22/25 15:22 Oxygen Delivery Room Air 10/22/25 15:22 Temperature 99.0 F 10/22/25 17:16 Pulse Rate 95 10/22/25 17:16 Respiratory Rate 18 10/22/25 17:16 Blood Pressure 115/64 10/22/25 17:16 Pulse Oximetry 100 10/22/25 17:16 Oxygen Delivery Room Air 10/22/25 15:22 MDM MDM Narrative Medical decision making narrative: Patient left after medical screening exam before being seen by a provider. Differential Diagnosis Differential Diagnosis: Differential diagnosis for nausea and vomiting in include hyperemesis gravidarum, gastroenteritis, PUD/gastritis, cholelithiasis/cholecystitis, pancreatitis, bowel obstruction migraine, UTI, cannabinoid hyperemesis syndrome. Discharge Plan Discharge Clinical Impression: Nausea and vomiting during Patient Disposition: Left Without Being Sn Triaged Patient Language: Niuean Prescriptions: No Action ondansetron 8 mg tablet,disintegrating 8 mg PO Q12H metoclopramide HCl [Reglan] 10 mg tablet 10 mg PO Q6H PRN (Reason: nausea and vomiting) Qty: 30 0RF Follow-up/Referrals: Maria T Carlton CNM [Primary Care Provider, LAYUP WORKER]
[2025-10-22 17:16] VITALS: BP 115/64; PULSE 95; RESP 18; TEMP 37.2; O2SAT 100
== END 2025-10-22 18:51 | disposition left against medical advice (07) ==
PROVIDERS: PCP Advanced Practice Midwife
DX: O21.9 Vomiting of pregnancy, unspecified (principal); Z3A.08 8 weeks gestation of pregnancy
CPT/HCPCS: 99199

== ENCOUNTER 2025-10-22 18:54 | Observation (INO) | payer OTHER, SELFPAY ==
[2025-10-22] VITALS (46 sets, daily range): BP systolic 103–122; BP diastolic 48–69; PULSE 81–214; RESP 18; TEMP 36.7–36.8; O2SAT 89–100; BMI 33.9
--- NOTE | 2025-10-22 19:31 | OBADM ---
This patient, Mariel Yusuf, admitted to the OB room OB Post 115 for observation. Patient/family oriented to hospital policies and general routines including ID bracelet, bed and alarms, visiting hours, pain management, procedures, bathroom and other care routines, personal items, smoking policy, room service/diet, and visiting hours. Patient/Family are encouraged to report perceived risks to care and to ask questions if they do not understand what they are told or what they should do.
[2025-10-22] MEDS: DEXTROSE 5%/LACTATED RINGERS 1,000 ML 999 ML IV CONT (20:29)
[2025-10-22] MEDS: ONDANSETRON INJ 4 MG/2 ML VIAL 8 MG IV PUSH (20:31)
[2025-10-22 20:46] LABS: Hematocrit 43.7 % (37.0-47.0); Hemoglobin 14.7 g/dL (12.0-15.0); Immature Granulocyte Percent A 0.3 % (0-0.5); Lymphocytes Absolute Auto 0.94 K/mm3 (0.9-3.2); Mean Corpuscular HGB Conc 33.6 g/dl (32-36); Mean Corpuscular Hemoglobin 29.4 pg (26-34); Mean Corpuscular Volume 87.4 fl (80-100); Nucleated Red Blood Cells Absolute Auto 0.000 K/mm3 (0.0-0.012); Nucleated Red Blood Cells Perc 0.0 % (0.0-0.2); Platelet Count Result 247 k/mm3 (150-375); Red Blood Count 5.00 M/mm3 (4.2-5.4); White Blood Count 6.6 K/mm3 (4.5-10.0)
[2025-10-22 20:58] LABS: Add Urine Microscopic? YES; Appearance Urine Cloudy (Clear); Glucose Urine UA Negative (Negative); Leukocyte Esterase Ur 1+ LEU/UL (Negative); Need Manual Microscopic Reviewed; Nitrate Urine Negative (Negative); Specific Grav Ur 1.027 (1.001-1.035)
[2025-10-22 21:15] LABS: Alanine Aminotransferase 18 U/L (6-35); Albumin Level 4.4 g/dL (3.5-5.1); Alkaline Phosphatase 45 U/L (38-126); Anion Gap 8 mmol/L (4-12); Aspartate Amino Transferase 23 U/L (14-36); Bilirubin,Total 1.0 mg/dL (0.2-1.3); Blood Urea Nitrogen 9 mg/dL (7-17); Calcium 8.8 mg/dL (8.4-10.2); Carbon Dioxide 23 mmol/L (22-30); Chloride 105 mmol/L (98-107); Estimated CRCL calculation 127 ml/min; Estimated Glomerular Filt Rate > 60; Glucose 90 mg/dL (65-110); Potassium 3.6 mmol/L (3.4-5.0); Sodium 136 mmol/L (137-145); Total Protein 7.5 g/dL (6.3-8.2)
[2025-10-22] MEDS: DEXTROSE 5%/LACTATED RINGERS 1,000 ML 125 ML IV CONT (21:29)
[2025-10-22] MEDS: METOCLOPRAMIDE HCL INJ 10 MG/2 ML VIAL IV PUSH (21:56)
--- NOTE | 2025-10-23 13:20 | P.PNOB_ITS ---
OB - Triage/Final Diagnosis Visit Information Comments/Additional reasons for admission: I have assessed the risk for this patient, Mariel Yusuf, and determined that she would benefit from observation care. Evaluation Laboratory results: Laboratory Tests 10/22/25 19:39 WBC 6.6 RBC 5.00 Hgb 14.7 Hct 43.7 MCV 87.4 MCH 29.4 MCHC 33.6 RDW 13.2 Plt Count 247 MPV 9.6 Immature Gran % (Auto) 0.3 Neut % (Auto) 79.9 H Lymph % (Auto) 14.4 L Richardson % (Auto) 4.3 Eos % (Auto) 0.8 Baso % (Auto) 0.3 Lymph # (Auto) 0.94 Richardson # (Auto) 0.3 Eos # (Auto) 0.1 Baso # (Auto) 0.0 Abs Immat Gran (auto) 0.02 Absolute Neuts (auto) 5.2 Absolute Nucleated RBC 0.000 Nucleated RBC % 0.0 Sodium 136 L Potassium 3.6 Chloride 105 Carbon Dioxide 23 Anion Gap 8 BUN 9 Creatinine 0.55 L Estim Creat Clear Calc 127 Estimated GFR > 60 Glucose 90 Calcium 8.8 Total Bilirubin 1.0 AST 23 ALT 18 Alkaline Phosphatase 45 Total Protein 7.5 Albumin 4.4 Urine Color Yellow Urine Appearance Cloudy H Urine pH 6.0 Ur Specific [place] 1.027 Urine Protein 1+ H Urine Glucose (UA) Negative Urine Ketones 1+ H Ur Blood (Man) Negative Urine Nitrate Negative Urine Bilirubin Negative Urine Urobilinogen 1.0 Ur Leukocyte Esterase 1+ H Add Ur Microanalysis Reviewed Urine RBC 3-5 H Urine WBC 11-20 H Ur Squamous Epith Cells Few Urine Bacteria 4+ H Urine Casts 3-5 Vital signs: Vital Signs - 24 hr 10/22/25 19:15 10/22/25 19:20 10/22/25 19:26 Temperature 98.1 F Pulse Rate 97 97 Respiratory Rate 18 Blood Pressure 122/68 122/68 Pulse Oximetry Oxygen Delivery Room Air 10/22/25 19:41 10/22/25 20:31 10/22/25 20:32 Temperature 98.2 F Pulse Rate 92 Respiratory Rate 18 Blood Pressure 107/57 L Pulse Oximetry 98 Oxygen Delivery 10/22/25 20:34 10/22/25 20:39 10/22/25 20:44 Temperature Pulse Rate Respiratory Rate Blood Pressure Pulse Oximetry 100 100 89 L Oxygen Delivery 10/22/25 20:45 10/22/25 20:49 10/22/25 20:50 Temperature Pulse Rate 84 Respiratory Rate Blood Pressure 116/54 L Pulse Oximetry 100 98 Oxygen Delivery 10/22/25 20:55 10/22/25 21:00 10/22/25 21:15 Temperature Pulse Rate 85 88 Respiratory Rate Blood Pressure 113/48 L 105/53 L Pulse Oximetry 99 100 Oxygen Delivery 10/22/25 21:26 10/22/25 21:26 10/22/25 21:30 Temperature Pulse Rate 89 Respiratory Rate Blood Pressure 109/49 L Pulse Oximetry 97 98 Oxygen Delivery 10/22/25 21:31 10/22/25 21:32 10/22/25 21:32 Temperature Pulse Rate Respiratory Rate Blood Pressure Pulse Oximetry 100 100 100 Oxygen Delivery 10/22/25 21:37 10/22/25 21:42 10/22/25 21:45 Temperature Pulse Rate 86 Respiratory Rate Blood Pressure 116/61 Pulse Oximetry 100 100 Oxygen Delivery 10/22/25 21:47 10/22/25 21:52 10/22/25 21:57 Temperature Pulse Rate Respiratory Rate Blood Pressure Pulse Oximetry 100 100 100 Oxygen Delivery 10/22/25 22:00 10/22/25 22:02 10/22/25 22:07 Temperature Pulse Rate 97 Respiratory Rate Blood Pressure 111/60 Pulse Oximetry 100 100 Oxygen Delivery 10/22/25 22:12 10/22/25 22:15 10/22/25 22:17 Temperature Pulse Rate 91 Respiratory Rate Blood Pressure 110/69 Pulse Oximetry 100 100 Oxygen Delivery 10/22/25 22:22 10/22/25 22:27 10/22/25 22:30 Temperature Pulse Rate 86 Respiratory Rate Blood Pressure 103/59 L Pulse Oximetry 100 99 Oxygen Delivery 10/22/25 22:32 10/22/25 22:37 10/22/25 22:42 Temperature Pulse Rate Respiratory Rate Blood Pressure Pulse Oximetry 100 99 100 Oxygen Delivery 10/22/25 22:45 10/22/25 22:50 10/22/25 22:55 Temperature Pulse Rate 91 Respiratory Rate Blood Pressure 109/57 L Pulse Oximetry 97 100 Oxygen Delivery 10/22/25 23:00 10/22/25 23:09 10/22/25 23:22 Temperature Pulse Rate 93 Respiratory Rate Blood Pressure 108/61 Pulse Oximetry 99 100 99 Oxygen Delivery 10/22/25 23:23 10/22/25 23:28 10/22/25 23:31 Temperature Pulse Rate 85 Respiratory Rate Blood Pressure 115/53 L Pulse Oximetry 99 99 Oxygen Delivery 10/22/25 23:33 Temperature Pulse Rate Respiratory Rate Blood Pressure Pulse Oximetry 100 Oxygen Delivery Final Diagnosis (1) Nausea/vomiting in : Code(s): O21.9 - Vomiting of , unspecified Status: Acute
== END 2025-10-22 23:57 | disposition home or self-care (01) ==
PROVIDERS: Admitting Provider Obstetrics & Gynecology; PCP Advanced Practice Midwife; Visit Provider Obstetrics & Gynecology
DX: O21.9 Vomiting of pregnancy, unspecified (principal); Z3A.08 8 weeks gestation of pregnancy
CPT/HCPCS: 36415; 80053; 81001; 85025; 96361; 96374; 96375; G0378; G0379; J2405; J2765; J7121

== ENCOUNTER 2025-11-07 11:58 | Emergency (ER) | payer OTHER, SELFPAY ==
--- NOTE | ~2025-11-07 | US_ITS ---
EXAMINATION: US OB <= 14 weeks fetus DATE: 11/07/2025 16:42 INDICATION: Vaginal bleeding and abdominal cramping during first trimester TECHNIQUE: Real-time pelvic ultrasound utilizing both a transvaginal and transabdominal probe was performed. The interpreting radiologist was not present for the study. COMPARISON: None. FINDINGS: The uterus measures 13.3 x 7.0 x 7.4 cm. There is an intrauterine gestational sac. A yolk sac and pole are identified. The crown rump length measures 3.9 cm, which correlates with an estimated gestational age of 10 weeks and 6 days. heart motion is identified measuring 167 beats per minute (bpm) by M-mode Doppler. 2.4 x 0.6 x 1.5 cm anechoic subchorionic hematoma along the right margin of the gestational sac. The right ovary measures 3.0 x 2.3 x 2.4 cm. The left ovary measures 4.9 x 3.0 x 1.4 cm. Vascular flow identified in both ovaries on color Doppler. There is no free fluid in the pelvis. IMPRESSION: 1. Single living fetus with heart rate of 167 bpm. 2. Gestational age by ultrasound of 10 weeks 6 day(s) +/- 7 day(s) with ultrasound estimated date of delivery (DIONICIO) of 05/30/2026. 2. Small subchorionic hematoma. Reviewed, dictated and finalized at location A. CARETAKER IMPRESSION: 1. Single living fetus with heart rate of 167 bpm. 2. Gestational age by ultrasound of 10 weeks 6 day(s) +/- 7 day(s) with ultras ound estimated date of delivery (DIONICIO) of 05/30/2026. 2. Small subchorionic hematoma.
[2025-11-07 12:08] VITALS: BP 114/65; PULSE 95; RESP 18; TEMP 36.5; O2SAT 100
[2025-11-07 14:57] LABS: Hematocrit 40.1 % (37.0-47.0); Hemoglobin 14.0 g/dL (12.0-15.0); Immature Granulocyte Percent A 0.4 % (0-0.5); Lymphocytes Absolute Auto 1.55 K/mm3 (0.9-3.2); Mean Corpuscular HGB Conc 34.9 g/dl (32-36); Mean Corpuscular Hemoglobin 30.4 pg (26-34); Mean Corpuscular Volume 87.0 fl (80-100); Nucleated Red Blood Cells Absolute Auto 0.000 K/mm3 (0.0-0.012); Nucleated Red Blood Cells Perc 0.0 % (0.0-0.2); Platelet Count Result 264 k/mm3 (150-375); Red Blood Count 4.61 M/mm3 (4.2-5.4); White Blood Count 8.6 K/mm3 (4.5-10.0)
[2025-11-07 15:05] LABS: Add Urine Microscopic? YES; Appearance Urine Clear (Clear); Glucose Urine UA Negative (Negative); Leukocyte Esterase Ur Trace LEU/UL (Negative); Nitrate Urine Negative (Negative); Non Pathogenic Casts 0-2; Specific Grav Ur 1.026 (1.001-1.035)
[2025-11-07 15:08] LABS: Alanine Aminotransferase 31 U/L (6-35); Albumin Level 4.3 g/dL (3.5-5.1); Alkaline Phosphatase 40 U/L (38-126); Anion Gap 10 mmol/L (4-12); Aspartate Amino Transferase 35 U/L (14-36); Bilirubin,Total 0.7 mg/dL (0.2-1.3); Blood Urea Nitrogen 9 mg/dL (7-17); Calcium 9.3 mg/dL (8.4-10.2); Carbon Dioxide 20 mmol/L (22-30); Chloride 106 mmol/L (98-107); Estimated CRCL calculation 128 ml/min; Estimated Glomerular Filt Rate > 60; Glucose 90 mg/dL (65-110); Potassium 3.8 mmol/L (3.4-5.0); Sodium 136 mmol/L (137-145); Total Protein 7.4 g/dL (6.3-8.2)
[2025-11-07 15:45] VITALS: BP 138/84; PULSE 105; RESP 16; TEMP 36.9; O2SAT 100
[2025-11-07 16:43] VITALS: BP 115/74; PULSE 89; RESP 16; TEMP 36.7; O2SAT 100
--- NOTE | 2025-11-07 17:13 | ED.PREGNANCY ---
HPI - General Chief complaint: STERILIZATION SPECIALIST <Thais Reina APRN - Last Filed: 11/07/25 17:16> Stated complaint: CRAMPING 11WKS +IUP <Thais Reina APRN - Last Filed: 11/07/25 17:16> Time Seen by Provider: 11/07/25 16:43 <Thais Reina APRN - Last Filed: 11/07/25 17:16> Focused HPI: Patient is a 30-year-old female who presents to the ER with lower abdominal pain, vaginal spotting. She reports she is approximately 11 weeks . Patient reports she had a miscarriage in May and is very anxious about this . She endorses burning when she white after urinating. Patient endorses a history of gestational diabetes and reports ?my sugars have been out of control. She has an established OBGYN, who advised her to come to the ER for further evaluation. GENERAL: Well-appearing, well-nourished, and in no acute distress. HEAD: Normocephalic, atraumatic. CHEST: Clear to auscultation. ?No respiratory distress. HEART: Regular rate and rhythm.? NEURO: ?Alert and oriented x3. Tearful Patient screened in triage and initial orders placed.? ?Additional care and disposition to be based upon?diagnostic testing and treatment. <Thais Reina APRN - Last Filed: 11/07/25 17:16> History of Present Illness HPI Narrative: I agree with the above HPI <Miguel Ángel Patel MD - Last Filed: 11/07/25 18:34> Related Data Home medications: Home Medications ?Medication ?Instructions ?Recorded ?Confirmed ?Last Taken ?Type ondansetron 8 mg disintegrating 8 mg PO Q12H nausea/vomiting 10/22/25 10/22/25 10/22/25 08:30 History tablet <Thais Reina APRN - Last Filed: 11/07/25 17:16> Allergies/Adverse reactions: Allergies Allergy/AdvReac Type Severity Reaction Status Date / Time prednisone Allergy Rash Verified 11/07/25 16:43 <Thais Reina APRN - Last Filed: 11/07/25 17:16> Review of Systems Review of Systems: All systems reviewed & are unremarkable except as noted in HPI and below <Miguel Ángel Patel MD - Last Filed: 11/07/25 18:34> PMFSH Past Medical History Medical History: Medical History History of smoking Marijuana abuse Obesity (BMI 35.0-39.9 without comorbidity) Headache Allergies Gestational diabetes Gestational hypertension <Thais Reina APRN - Last Filed: 11/07/25 17:16> Surgical History Surgical History: Surgical History Hx laparoscopic cholecystectomy 09/11/24 Gilberto Guerrero MD History of tonsillectomy History of appendectomy <Thais Reina APRN - Last Filed: 11/07/25 17:16> Family History Family History: Family History Grandparent Diabetes mellitus Depression Cancer Hypertension Daughter No problems noted. Father Depression Mother Depression Diverticulitis Crohn disease <Thais Reina APRN - Last Filed: 11/07/25 17:16> Social History Social History: Social History Smoking status: Former smoker Tobacco type: cigarettes Second hand tobacco smoke exposure: No Smoking end date: 11/22/18 Alcohol intake: never Substance use: never Substance use type: marijuana Lack of Transportation: No Lack of Food: Never True Current Housing: I Have Housing Concerned About Future Housing: No Difficulty Paying Gas/Electric Bills: No Difficulty Paying for Meds: No Currently Unemployed: No Education: High School Diploma/GED Difficulty w/ Childcare or Family Care: No Gender identity (if verbalized by the patient): Female Spiritual care concerns: No <Thais Reina APRN - Last Filed: 11/07/25 17:16> Exam Narrative: APPEARANCE: Well appearing, no pain, no distress, well-nourished. HEAD: normocephalic, atraumatic. EYES: PERRLA/EOMI, conjunctivae clear. NOSE: Normal no drainage NECK: Supple. No adenopathy, no masses. RESPIRATORY: Airway patent, respirations nonlabored. Clear to auscultation bilaterally, no rales, rhonchi, wheezing. CARDIOVASCULAR: Regular rate and rhythm without murmurs rubs or gallops. ABDOMINAL: Soft, nontender, nondistended, normal bowel sounds MUSCULOSKELETAL: Moves all extremities. Strength/ROM intact, No edema, No calf tenderness. NEURO: Alert. Cranial nerves II through XII intact. Good gait. Good coordination SKIN: Warm, dry. Normal Color <Miguel Ángel Patel MD - Last Filed: 11/07/25 18:34> Discharge Plan Discharge Clinical Impression: Subchorionic hemorrhage, UTI (urinary tract infection) <Thais Reina APRN - Last Filed: 11/07/25 17:16> Patient Disposition: Home <Thais Reina APRN - Last Filed: 11/07/25 17:16> Condition: Stable <Thais Reina APRN - Last Filed: 11/07/25 17:16> Instructions: Antibiotic Form, Urinary Tract Infection in (ED), Subchorionic Hemorrhage (ED) <Thais Reina APRN - Last Filed: 11/07/25 17:16> Additional Instructions: Antibiotic as directed until completed. Continue have close follow-up with your OB Gyne and primary care physician. [facility] does have some inexpensive insulin options. If you have any worsening symptoms please call or return to the emergency department. <Thais Reina APRN - Last Filed: 11/07/25 17:16> Patient Language: Lao <Thais Reina APRN - Last Filed: 11/07/25 17:16> Prescriptions: New nitrofurantoin monohyd/m-cryst [Macrobid] 100 mg capsule 100 mg PO Q12H 5 Days Qty: 10 0RF Rx Instructions: must administer with a meal/food No Action ondansetron 8 mg tablet,disintegrating 8 mg PO Q12H metoclopramide HCl [Reglan] 10 mg tablet 10 mg PO Q6H PRN (Reason: nausea and vomiting) Qty: 30 0RF <Thais Reina APRN - Last Filed: 11/07/25 17:16> Follow-up/Referrals: PHYSICIAN,INSULATION ESTIMATOR [Primary Care Provider, Internal Medicine] <Thais Reina, BOOM MASTER - Last Filed: 11/07/25 17:16> Course Vital Signs Vital signs: Vital Signs Temperature 97.7 F 11/07/25 12:08 Pulse Rate 95 11/07/25 12:08 Respiratory Rate 18 11/07/25 12:08 Blood Pressure 114/65 11/07/25 12:08 Pulse Oximetry 100 11/07/25 12:08 Oxygen Delivery Room Air 11/07/25 12:08 Temperature 98.0 F 11/07/25 16:43 Pulse Rate 89 11/07/25 16:43 Respiratory Rate 16 11/07/25 16:43 Blood Pressure 115/74 11/07/25 16:43 Pulse Oximetry 100 11/07/25 16:43 Oxygen Delivery Room Air 11/07/25 16:43 <Thais Reina, BOOM MASTER - Last Filed: 11/07/25 17:16> Vital Signs Temperature 97.7 F 11/07/25 12:08 Pulse Rate 95 11/07/25 12:08 Respiratory Rate 18 11/07/25 12:08 Blood Pressure 114/65 11/07/25 12:08 Pulse Oximetry 100 11/07/25 12:08 Oxygen Delivery Room Air 11/07/25 12:08 Temperature 98.0 F 11/07/25 16:43 Pulse Rate 89 11/07/25 16:43 Respiratory Rate 16 11/07/25 16:43 Blood Pressure 115/74 11/07/25 16:43 Pulse Oximetry 100 11/07/25 16:43 Oxygen Delivery Room Air 11/07/25 16:43 <Miguel Ángel Patel MD - Last Filed: 11/07/25 18:34> MDM MDM Narrative Medical decision making narrative: 30-year-old female present to the emergency department for evaluation for cramping with spotting. Patient is currently afebrile and leukocytosis hemoglobin of 14.0. Patient's blood type is A positive. UA shows no significant abnormalities and patient's blood sugars are not significantly elevated. Patient UA was concerning for UTI. Urine culture was ordered. Patient was started on Macrobid. Patient does have follow-up with her primary care physician tomorrow. Patient was also advised to further investigate inexpensive insulin provided by [employer] <Miguel Ángel Patel MD - Last Filed: 11/07/25 18:34> Differential Diagnosis Differential Diagnosis: Hyperglycemia, UTI, subchronic hemorrhage, miscarriage <Miguel Ángel Patel MD - Last Filed: 11/07/25 18:34> Lab Data [facility] Lab Attestation statement: I personally reviewed the patient's lab results. <Miguel Ángel Patel MD - Last Filed: 11/07/25 18:34> Result diagrams: 11/07/25 14:46 11/07/25 14:46 <Thais Reina APRN - Last Filed: 11/07/25 17:16> Labs: Lab Results 11/07/25 Range/Units 14:46 WBC 8.6 (4.5-10.0) K/mm3 RBC 4.61 (4.2-5.4) M/mm3 Hgb 14.0 (12.0-15.0) g/dL Hct 40.1 (37.0-47.0) % MCV 87.0 (80-100) fl MCH 30.4 (26-34) pg MCHC 34.9 (32-36) g/dl RDW 13.1 (11.5-14.5) % Plt Count 264 (150-375) k/mm3 MPV 9.6 (7.4-10.4) fl Immature Gran % (Auto) 0.4 (0-0.5) % Neut % (Auto) 74.2 H (45.5-73.1) % Lymph % (Auto) 18.1 L (18.3-44.2) % [place] % (Auto) 6.0 (2.6-8.5) % Eos % (Auto) 0.7 (0-4.4) % Baso % (Auto) 0.6 (0.2-1.2) % Lymph # (Auto) 1.55 (0.9-3.2) K/mm3 [place] # (Auto) 0.5 (0.1-0.6) K/mm3 Eos # (Auto) 0.1 (0-0.3) K/mm3 Baso # (Auto) 0.1 (0.0-0.1) K/mm3 Abs Immat Gran (auto) 0.03 (0.00-0.031) K/mm3 Absolute Neuts (auto) 6.4 (1.3-6.7) K/mm3 Absolute Nucleated RBC 0.000 (0.0-0.012) K/mm3 Nucleated RBC % 0.0 (0.0-0.2) % Sodium 136 L (137-145) mmol/L Potassium 3.8 (3.4-5.0) mmol/L Chloride 106 (98-107) mmol/L Carbon Dioxide 20 L (22-30) mmol/L Anion Gap 10 (4-12) mmol/L BUN 9 (7-17) mg/dL Creatinine 0.53 L (0.7-1.0) mg/dL Estim Creat Clear Calc 128 ml/min Estimated GFR > 60 (59 - ) Glucose 90 (65-110) mg/dL Calcium 9.3 (8.4-10.2) mg/dL Total Bilirubin 0.7 (0.2-1.3) mg/dL AST 35 (14-36) U/L ALT 31 (6-35) U/L Alkaline Phosphatase 40 (38-126) U/L Total Protein 7.4 (6.3-8.2) g/dL Albumin 4.3 (3.5-5.1) g/dL Beta HCG, Quant 434525.00 mIU/ML Urine Color Yellow (Yellow) Urine Appearance Clear (Clear) Urine pH 5.5 (5.0-9.0) Ur Specific [place] 1.026 (1.001-1.035) Urine Protein Negative (Negative) mg/dL Urine Glucose (UA) Negative (Negative) mg/dL Urine Ketones 1+ H (Negative) mg/dL Ur Blood (Man) Negative (Negative) Urine Nitrate Negative (Negative) Urine Bilirubin Negative (Negative) Urine Urobilinogen 0.2 (<2.0) mg/dL Leukocyte Esterase Rfl Trace H (Negative) IVONNE/UL Urine RBC 3-5 H (0-2) /hpf Urine WBC 6-10 H (0-3) /hpf Ur Squamous Epith Cells Few (Few) /hpf Urine Bacteria 1+ H /hpf Urine Casts 0-2 Blood Type A Positive Antibody Screen Negative Doses of RhIg Required 0 <Thais Reina, BOOM MASTER - Last Filed: 11/07/25 17:16> Lab Results 11/07/25 Range/Units 14:46 WBC 8.6 (4.5-10.0) K/mm3 RBC 4.61 (4.2-5.4) M/mm3 Hgb 14.0 (12.0-15.0) g/dL Hct 40.1 (37.0-47.0) % MCV 87.0 (80-100) fl MCH 30.4 (26-34) pg MCHC 34.9 (32-36) g/dl RDW 13.1 (11.5-14.5) % Plt Count 264 (150-375) k/mm3 MPV 9.6 (7.4-10.4) fl Immature Gran % (Auto) 0.4 (0-0.5) % Neut % (Auto) 74.2 H (45.5-73.1) % Lymph % (Auto) 18.1 L (18.3-44.2) % [place] % (Auto) 6.0 (2.6-8.5) % Eos % (Auto) 0.7 (0-4.4) % Baso % (Auto) 0.6 (0.2-1.2) % Lymph # (Auto) 1.55 (0.9-3.2) K/mm3 [place] # (Auto) 0.5 (0.1-0.6) K/mm3 Eos # (Auto) 0.1 (0-0.3) K/mm3 Baso # (Auto) 0.1 (0.0-0.1) K/mm3 Abs Immat Gran (auto) 0.03 (0.00-0.031) K/mm3 Absolute Neuts (auto) 6.4 (1.3-6.7) K/mm3 Absolute Nucleated RBC 0.000 (0.0-0.012) K/mm3 Nucleated RBC % 0.0 (0.0-0.2) % Sodium 136 L (137-145) mmol/L Potassium 3.8 (3.4-5.0) mmol/L Chloride 106 (98-107) mmol/L Carbon Dioxide 20 L (22-30) mmol/L Anion Gap 10 (4-12) mmol/L BUN 9 (7-17) mg/dL Creatinine 0.53 L (0.7-1.0) mg/dL Estim Creat Clear Calc 128 ml/min Estimated GFR > 60 (59 - ) Glucose 90 (65-110) mg/dL Calcium 9.3 (8.4-10.2) mg/dL Total Bilirubin 0.7 (0.2-1.3) mg/dL AST 35 (14-36) U/L ALT 31 (6-35) U/L Alkaline Phosphatase 40 (38-126) U/L Total Protein 7.4 (6.3-8.2) g/dL Albumin 4.3 (3.5-5.1) g/dL Beta HCG, Quant 808381.00 mIU/ML Urine Color Yellow (Yellow) Urine Appearance Clear (Clear) Urine pH 5.5 (5.0-9.0) Ur Specific [place] 1.026 (1.001-1.035) Urine Protein Negative (Negative) mg/dL Urine Glucose (UA) Negative (Negative) mg/dL Urine Ketones 1+ H (Negative) mg/dL Ur Blood (Man) Negative (Negative) Urine Nitrate Negative (Negative) Urine Bilirubin Negative (Negative) Urine Urobilinogen 0.2 (<2.0) mg/dL Leukocyte Esterase Rfl Trace H (Negative) IVONNE/UL Urine RBC 3-5 H (0-2) /hpf Urine WBC 6-10 H (0-3) /hpf Ur Squamous Epith Cells Few (Few) /hpf Urine Bacteria 1+ H /hpf Urine Casts 0-2 Blood Type A Positive Antibody Screen Negative Doses of RhIg Required 0 <Miguel Ángel Patel MD - Last Filed: 11/07/25 18:34> Imaging Data Radiologist's impression: ITS Impressions Ultrasound 11/07/25 16:51 IMPRESSION: 1. Single living fetus with heart rate of 167 bpm. 2. Gestational age by ultrasound of 10 weeks 6 day(s) +/- 7 day(s) with ultrasound estimated date of delivery (DIONICIO) of 05/30/2026. 2. Small subchorionic hematoma. <Thais Reina APRN - Last Filed: 11/07/25 17:16> ITS Impressions Ultrasound 11/07/25 16:51 IMPRESSION: 1. Single living fetus with heart rate of 167 bpm. 2. Gestational age by ultrasound of 10 weeks 6 day(s) +/- 7 day(s) with ultrasound estimated date of delivery (DIONICIO) of 05/30/2026. 2. Small subchorionic hematoma. <Miguel Ángel Patel MD - Last Filed: 11/07/25 18:34>
[2025-11-07] MEDS: NITROFURANTOIN MONOHYD MACROCR 100 MG CAP PO (17:37)
--- OUTSIDE RECORDS SUMMARY | 2025-11-07 18:49 | XMS_ITS | Continuity of Care Document ---
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 Plan of Treatment Reminders Order Date Submit Date Provider Last Modified By Organization Details Last Modified Time Details Appointments FOLLOW UP 2024 09:15A Renata GOTTI MD Not available Not available Not available U/S OB FIRST LOOK 2024 10:30A M ULTRASOUND Not available Not available Not available OB NEW 2024 11:00A Renata GOTTI MD Not available Not available Not available Lab None recorde d. Referral None recorde d. Procedures None recorde d. Surgeries None recorde d. Imaging US, obstetr ic, transva ginal 202424/ 025 [email or web address], [address], [place], [address], 10/17/2025 11:38:27 Medication Orders None recorde d. [...] Resul ting Lab: [facility] [address] [facility] [address] Tel: CULTU RE ----- ----- ----- --- Cultu re resul t (>=3 organ isms prese nt) indic ates possi ble conta minat ion. Repea t cultu re if sympt oms indic ate. Not Available [facility] (Lab) [address], [place], [address], 10/10/2025 08:41:21 10/08/20 25 10/08/2025 US, obste tric, trans vagin al No observ ation record ed. [email or web address], [place], [address], 10/08/2025 15:50:26 10/08/20 25 10/08/2025 US, obste tric, trans vagin al No observ ation record ed. [email or web address] [address], [place], [address], 10/08/2025 20:28:04 10/15/20 25 10/15/2025 US, obste tric, trans vagin al No observ ation record ed. [email or web address] [address], [place], [address], 10/15/2025 14:43:23 10/15/20 25 10/15/2025 US, obste tric, trans vagin al No observ ation record ed. [email or web address] Nydia [address], [place], [address], 10/15/2025 15:11:39 10/29/20 25 10/29/2025 US, obste tric, 1st trime ster No observ ation record ed. [email or web address] N[address], [place], [address], 10/29/2025 17:12:57 Result Notes None recorded. Problems Name Problem SNOMED Code Status Onset Date Resolution Date Notes Provider Name and Address Organization Details Recorded Time Gestatio nal diabetes mellitus class A2 61661640 Completed 5u NPH AM, 5u Lispro Lunch, 15u NPH @ HS - MF 03/31 [facility] Rosa Elena Weber [facility] 3 14:52:11 Cholesta sis [id number] Completed 07/07 - Per Scarlett with M - she spoke with Dr. Dangelo and to cont ursodiol and anticipa te/assum e cholesta sis based on presenta tion. Rpt labs next week before M appt on 07/21. Might recommen d 37-38wk del José Weber [facility] 3 14:52:12 Amenorrh ea [id number] Completed 201409/23/2021 AMENORRH EA;Pract ice ID: 0001 Emma Cordova [facility] 1 10:28:02 Speciali zed medical examinat ion Completed 201409/23/2021 Routine gynecolo gical examinat ion;Prac dante ID: 0001 Emma Cordova [facility] 1 10:31:25 Pregnanc y test positive [id number] Completed 201409/23/2021 Positive Pregnanc y Test;Pra ctice ID: 0001 Emma Cordova [facility] 1 10:30:38 Uterine size for dates discrepa ncy [id number] Completed 201409/23/2021 UTERINE SIZE MEG-ANTE PAR;Prac dante ID: 0001 Emma Cordova [facility] 1 10:31:47 Mild hypereme sis-not delivere d [id number] Completed 201409/23/2021 Hypereme sis gravidar um, antepart um Mild;Pra ctice ID: 0001 Emma conrad, [facility] 10:30:08 Nausea and vomiting [id number] Completed 201409/23/2021 Nausea with vomiting ;Practic e ID: 0001 Emma conrad, [facility] 10:30:09 Syncope and collapse [id number] Completed 201409/23/2021 Syncope and collapse ;Practic e ID: 0001 Emma conrad, [facility] 10:31:31 Antenata l screenin g Completed 201409/23/2021 ANTENATA L SCREENIN G NEC;Prac dante ID: 0001 Emmapat conrad, [facility] 10:28:04 Primigra parisa [id number] Completed 201409/23/2021 Supervis ion of normal first pregnanc y;Practi ce ID: 0001 Emmapat Cordova [facility] 10:30:56 anatomy study Completed 201409/23/2021 [facility] SURVEY;P reiniertice ID: 0001 Emma Cordova [place], [facility] 10:29:10 Complica tion of pregnanc y, childbir th and/or puerperi um [id number] Completed 201409/23/2021 OTH CURR COND-ANT EPARTUM; Practice ID: 0001 Emma Cordova [place], [facility] 10:28:17 Pregnanc y, childbir th and puerperi um finding Completed 201409/23/2021 Encntr for suprvsn of normal first preg, third trimeste r;Practi ce ID: 0001 Emma Cordova [place], [facility] 10:30:41 Urinary tract infectio us disease [id number] Completed 201409/23/2021 Urinary tract infectio n, site not specifie d;Practi ce ID: 0001 Emma Cordova [place], [facility] 10:31:42 Eruption [id number] Completed 201409/23/2021 Rash;Rec orded Elsewher e: No Locat ion: [facility] S ource: EHR [employer] doris: N Practi ce ID: 0001 Roel lable Time: 03:30:00 PM Emma Tasha [place], [facility] 10:28:58 Pregnanc y, childbir th and puerperi um finding Completed 201409/23/2021 Oth pregnanc y related conditio ns, third trimeste r;Practi ce ID: 0001 Emma conrad, [facility] 10:28:13 Noninfec tious enteriti s of intestin e Completed 201409/23/2021 Gastroen teritis; Recorded Elsewher e: No Locat ion: [facility] S ource: EHR [employer] doris: N Practi ce ID: 0001 Roel lable Time: 02:30:00 PM Emma conrad, [facility] 10:30:00 prematur e rupture of membrane s [id number] Completed 201409/23/2021 Pretrm evelin ROM, unsp time betw rupt and onst labr, 3rd tri;Prac dante ID: 0001 Emma Cordova [place], [facility] 10:30:54 Lochia finding Completed 201509/23/2021 Encounte r for routine postpart um follow-u p;Record ed Elsewher e: No Locat ion: [facility] S ource: EHR [employer] doris: N Practi ce ID: 0001 Roel lable Time: 01:00:00 PM Emma conrad [facility] 1 10:30:[address] Concept Completed 201509/23/2021 Encounte r for surveill ance of other contrace ptives;R ecorded Elsewher e: No [facility]: [facility] [employer] doris: N Practi ce ID: 0001 Roel lable Time: 01:00:00 PM Emma conrad [facility] 1 10:31:20 Sexually transmit car infectio us disease [id number] Completed 201509/23/2021 STD;Romulo rded Elsewher e: No Locat ion: [facility] S ource: EHR [employer] doris: N Jairti ce ID: 0001 Roel lable Time: 10:30:00 AM Emma Cordova [facility] 1 10:31:01 Uses combined oral contrace ption [id number] Completed 201609/23/2021 Encounte r for initial prescrip tion of contrace ptive pills;Re corded Elsewher e: No Locat ion: [facility] S ource: EHR [employer] doris: N Jairti ce ID: 0001 Roel lable Time: 08:30:00 AM Emma conrad [facility] 1 10:28:15 Procedur e Completed 201609/23/2021 Encounte r for checking , reinsert ion or removal of implanta ble subderma l contrace ptive;Re corded Elsewher e: No Locat ion: [facility] S ource: EHR [employer] doris: N Practi ce ID: 0001 Roel lable Time: 08:30:00 AM Emma conrad [facility] 1 10:30:58 Infectio n screenin g Completed 201609/23/2021 Encounte r for screenin g for oth infec/pa rastc diseases ;Recorde d Elsewher e: No Locat ion: [facility] S ource: EHR [employer] doris: N Jairti ce ID: 0001 Roel lable Time: 11:00:00 AM Emma conrad, [facility] 1 10:29:58 Acute vaginiti s [id number] Completed 201609/23/2021 Acute vaginiti s;Record ed Elsewher e: No Locat ion: [facility] S ource: EHR [employer] odris: N Jairti ce ID: 0001 Roel lable Time: 11:00:00 AM Emma Cordova [facility], [facility] 10:28:00 Vaginola bial hernia Completed 201609/23/2021 Other specifie d noninfla mmatory disorder s of vagina;R ecorded Elsewher e: No Locat ion: [facility] S ource: EHR [employer] doris: N Jairti ce ID: 0001 Roel lable Time: 11:00:00 AM Emma Cordova [place], [facility] 1 10:31:49 Counseli ng for harmful pattern of substanc e use Completed 201609/23/2021 Tobacco abuse counseli ng;Recor ded Elsewher e: No Locat ion: [facility] S ource: EHR [employer] doris: N Jairti ce ID: 0001 Roel lable Time: 11:00:00 AM Emma conrad [facility] 1 10:31:[address] Concept Completed 201609/23/2021 Encntr for general adult medical exam w/o abnormal findings ;Recorde d Elsewher e: No Locat ion: [facility] S ource: E[facility] [employer] doris: N Jairti ce ID: 0001 Roel lable Time: 11:00:00 AM Emma conrad, [facility] 1 10:31:16 Increase d frequenc y of urinatio n [id number] Completed 201609/23/2021 Frequenc y of micturit ion;Romulo rded Elsewher e: No Locat ion: [facility] S ource: EHR [employer] doris: N Jiarti ce ID: 0001 Roel lable Time: 11:15:00 AM Emma conrad, [facility] 10:29:56 Pregnanc y detectio n examinat ion Completed 201709/23/2021 Encounte r for pregnanc y test, result positive ;Recorde d Elsewher e: No Locat ion: [facility] N Jairti ce ID: 0001 Roel lable Time: 02:15:00 PM Emma conrad, [facility] 10:30:18 Finding of regulari ty of menstrua l cycle Completed 201709/23/2021 Irregula r bleeding ;Recorde d Elsewher e: No Locat ion: [facility] S ource: E[facility] [employer] drois: N Jairti ce ID: 0001 Roel lable Time: 02:15:00 PM Emma conrad, [facility] 10:29:18 Cyst of ovary Completed 201709/23/2021 Unspecif ied ovarian cyst, unspecif ied side;Rec orded Elsewher e: No Locat ion: [facility] S ource: E[facility] [employer] doris: N Jairti ce ID: 0001 Roel lable Time: 11:00:00 AM Emma conrad, [facility] 10:28:44 Syphilis test finding [id number] Completed 201709/23/2021 Encntr screen for infectio ns w sexl mode of transmis s;Record ed Elsewher e: No Locat ion: [facility] S ource: E[facility] [employer] doris: N Practi ce ID: 0001 Roel lable Time: 11:00:00 AM Emma conrad [facility] 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 1 10:31:18 Body mass index 30+ - obesity [id number] Completed 201709/23/2021 Body mass index (BMI) 32.0-32. 9, adult;Re corded Elsewher e: No Locat ion: [facility]: N Ab ce ID: 0001 Roel lable Time: 11:00:00 AM Emma conrad, [facility] 1 10:28:11 Finding of pattern of menstrua l cycle Completed 201709/23/2021 Excessiv e and frequent menstrua tion with irregula r cycle;Re corded Elsewher e: No Locat ion: [facility]: N Ab ce ID: 0001 Roel lable Time: 01:00:00 PM Emma conrad [facility] 10:29:16 Mammogra phic calcific ation of breast [id number] Completed 201709/23/2021 Mammogra phic calcifcn found on diagnost ic imaging of breast;R ecorded Elsewher e: No Locat ion: [facility] S [facility]: N Jairti ce ID: 0001 Roel lable Time: 01:00:00 PM Emma conrad [facility] 1 10:30:05 Pain in female genitali a Completed 201709/23/2021 Dysmenor jannette, unspecif ied;Romulo rded Elsewher e: No Locat ion: [facility] S ource: E[facility] [employer] doris: N Jairti ce ID: 0001 Roel lable Time: 01:00:00 PM Emma Brittontz [facility], [facility] 1 10:30:13 Depressi ve disorder [id number] Completed 201709/23/2021 Major depressi ve disorder , single episode, unspecif ied;Romulo rded Elsewher e: No Locat ion: [facility] S ource: E[facility] [employer] doris: N Jairti ce ID: 0001 Roel lable Time: 09:00:00 AM Emma Cordova [facility] 10:28:[address] Concept Completed 201709/23/2021 Anxiety disorder , unspecif ied;Romulo rded Elsewher e: No Locat ion: [facility]: N Jairti ce ID: 0001 Roel lable Time: 09:45:00 AM Emma Cordova [facility], [facility] 10:31:09 Pregnanc y test negative [id number] Completed 201709/23/2021 Encounte r for pregnanc y test, result negative ;Recorde d Elsewher e: No Locat ion: [facility] S [facility]: N Jairti ce ID: 0001 Roel lable Time: 09:45:00 AM Emma Cordova [facility] 10:30:36 Blood leukocyt e number above referenc e range [id number] Completed 201709/23/2021 Elevated white blood cell count, unspecif ied;Romulo rded Elsewher e: No Locat ion: [facility] S ource: E[facility] [employer] doris: N Jairti ce ID: 0001 Roel lable Time: 11:45:00 AM Emma conrad [facility] 1 10:29:54 Pelvic and perineal pain [id number] Completed 201709/23/2021 Pelvic and perineal pain;Rec orded Elsewher e: No Locat ion: [facility] S ource: EHR [employer] doris: N Practi ce ID: 0001 Roel lable Time: 11:15:00 AM Emma conrad, [facility] 10:30:16 Dysuria [id number] Completed 201709/23/2021 Dysuria; Recorded Elsewher e: No Locat ion: [facility] S ource: EHR [employer] doris: N Practi ce ID: 0001 Roel lable Time: 11:45:00 AM Emma conrad, [facility] 10:28:56 Exposure to sexually transmis sible disorder Completed 201709/23/2021 Contact w and exposure to infect w a sexl mode of transmis s;Practi ce ID: 0001 Emma cnorad, [facility] 10:29:00 Gestatio n less than 9 weeks [id number] Completed 201809/23/2021 Less than 8 weeks gestatio n of pregnanc y;Record ed Elsewher e: No Locat ion: [facility] S ource: EHR [employer] doris: N Practi ce ID: 0001 Roel lable Time: 08:15:00 AM Emma conrad, [facility] 10:29:22 Situatio n with explicit context Completed 201809/23/2021 Suprvsn of preg w poor reprodct v or obstet hx, first tri;Romulo rded Elsewher e: No Locat ion: [facility] S ource: EHR [employer] doris: N Practi ce ID: 0001 Roel lable Time: 08:15:00 AM Emma Cordova [place] [facility] 1 10:31:07 Threaten ed miscarri age [id number] Completed 201809/23/2021 Threaten ed ;Recorde d Elsewher e: No Locat ion: [facility] S ource: EHR [employer] doris: N Practi ce ID: 0001 Roel lable Time: 10:30:00 AM Emma Cordova [place], [facility] 1 10:31:38 Blighted ovum [id number] Completed 201809/23/2021 Blighted ovum and nonhydat idiform mole;Rec orded Elsewher e: No [facility]: N Jairti ce ID: 0001 Roel lable Time: 10:30:00 AM Emma Cordova [place] [facility] 1 10:28:08 Finding of contents of cervix [id number] Completed 201809/23/2021 Weeks of gestatio n of pregnanc y not specifie d;Record ed Elsewher e: No Locat ion: [facility] S [facility]: [facility]: N Jairti ce ID: 0001 Roel lable Time: 10:30:00 AM Emma Cordova [place] [facility] 1 10:29:13 Normal pregnanc y in multigra parisa [id number] 37717 Completed 201809/23/2021 Encounte r for suprvsn of normal pregnanc y, second trimeste r;Record ed Elsewher e: No [facility]at [facility]: [facility] [employer] doris: N Practi ce ID: 0001 Roel lable Time: 05:00:00 PM Emma Tasha [place] [facility] 1 10:30:11 Antenata l screenin g for malforma tion Completed 201809/23/2021 Encounte r for antenata l screenin g for malforma tions;Re corded Elsewher e: No Locat ion: [facility] S ource: EHR [employer] doris: N Jairti ce ID: 0001 Roel lable Time: 10:30:00 AM Emma conrad [facility] 1 10:28:06 Gestatio n period, 20 weeks [id number] Completed 201809/23/2021 20 weeks gestatio n of pregnanc y;Record ed Elsewher e: No Locat ion: [facility] S ource: EHR [employer] doris: N Jairti ce ID: 0001 Roel lable Time: 11:30:00 AM Emma conrad, [facility] 10:29:24 Finding of trunk structur e Completed 201909/23/2021 Oth diseases and conditio ns compl preg/chl dbrth;Re corded Elsewher e: No [facility]at [facility] S our[facility]: E[facility] [employer] doris: N Jairti ce ID: 0001 Roel lable Time: 03:15:00 PM Emma conrad [facility] 10:31:40 Gestatio n period, 29 weeks [id number] Completed 201909/23/2021 29 weeks gestatio n of pregnanc y;Record ed Elsewher e: No Locat ion: [facility] S ource: EHR [employer] doris: N Practi ce ID: 0001 Roel lable Time: 03:15:00 PM Emma conrad [facility] 10:29:27 Gestatio n period, 30 weeks [id number] Completed 201909/23/2021 30 weeks gestatio n of pregnanc y;Record ed Elsewher e: No Locat ion: [facility] S ource: EHR [employer] doris: N Jairti ce ID: 0001 Roel lable Time: 10:45:00 AM Emma conrad [facility] 1 10:29:29 Uterine size for dates discrepa ncy Completed 201909/23/2021 Uterine size-neeta e discrepa ncy, second trimeste r;Record ed Elsewher e: No Locat ion: [facility] S ource: EHR [employer] doris: N Practi ce ID: 0001 Roel lable Time: 10:45:00 AM Emma conrad, [facility] [address] 10:31:[address] Concept Completed 201909/23/2021 Decrease d movement s, third trimeste r, unsp;Rec orded Elsewher e: No [facility]at ion: [facility] S ource: E[facility] [employer] doris: N Practi ce ID: 0001 Roel lable Time: 11:30:00 AM Emmapat conrad, [facility] 1 10:31:14 Prematur e rupture of membrane s [id number] Completed 201909/23/2021 Evelin ROM, 7th0 betw rupt & onst labr, unsp weeks of gest;Pra ctice ID: 0001 Emma conrad, [facility] 10:30:51 Gestatio n period, 32 weeks [id number] Completed 201909/23/2021 32 weeks gestatio n of pregnanc y;Record ed Elsewher e: No [facility]at [facility]: [facility] S our[facility]: E[facility] [employer] doris: N Practi ce ID: 0001 Roel lable Time: 11:00:00 AM Emmapat conrad, [facility] 10:29:30 Gestatio n period, 33 weeks [id number] Completed 201909/23/2021 33 weeks gestatio n of pregnanc y;Record ed Elsewher e: No Locat ion: [facility] S ource: EHR [employer] doris: N Practi ce ID: 0001 Roel lable Time: 03:00:00 PM Emma Tasha [place], [facility] 10:29:32 Gestatio n period, 34 weeks [id number] Completed 201909/23/2021 34 weeks gestatio n of pregnanc y;Record ed Elsewher e: No [facility]at [facility] S our[facility]: E[facility] [employer] doris: N Practi ce ID: 0001 Roel lable Time: 11:00:00 AM Emma Cordova [place], [facility] 10:29:34 False labor before 37 complete d weeks of gestatio n [id number] Completed 201909/23/2021 False labor before 37 complete d weeks of gest, third tri;Prac dante ID: 0001 Emma Cordova [place], [facility] 10:29:08 Gestatio n period, 35 weeks [id number] Completed 201909/23/2021 35 weeks gestatio n of pregnanc y;Record ed Elsewher e: No Locat ion: [facility] S ource: EHR [employer] doris: N Practi ce ID: 0001 Roel lable Time: 11:30:00 AM Emma Tahsa [place], [facility] 10:29:36 Gestatio nal diabetes mellitus [id number] Completed 201909/23/2021 Gestatio nal diabetes in pregnanc y, insulin controll ed;Recor ded Elsewher e: No Locat ion: [facility] S ource: EHR [employer] doris: N Practi ce ID: 0001 Roel lable Time: 10:30:00 AM Emma Cordova [place], [facility] 10:29:52 Gestatio n period, 36 weeks [id number] Completed 201909/23/2021 36 weeks gestatio n of pregnanc y;Practi ce ID: 0001 Emma Cordova [place], [facility] 10:29:38 Pregnanc y-induce d hyperten bo Completed 201909/23/2021 Gestatio nal htn w/o signific ant proteinu anais, third trimeste r;Practi ce ID: 0001 Emma conrad, [facility] 10:30:49 Gestatio n period, 37 weeks [id number] Completed 201909/23/2021 37 weeks gestatio n of pregnanc y;Record ed Elsewher e: No Locat ion: [facility] S ource: EHR [employer] doris: N Practi ce ID: 0001 Roel lable Time: 10:30:00 AM Emma conrad, [facility] 10:29:40 False labor at or after 37 complete d weeks of gestatio n [id number] Completed 201909/23/2021 False labor at or after 37 complete d weeks of gestatio n;Practi ce ID: 0001 Emma conrad, [facility] 10:29:06 Gestatio n period, 38 weeks [id number] Completed 201909/23/2021 38 weeks gestatio n of pregnanc y;Record ed Elsewher e: No Locat ion: [facility] S ource: EHR [employer] doris: N Practi ce ID: 0001 Roel lable Time: 10:30:00 AM Emma conrad, [facility] 10:29:41 Term pregnanc y delivere d [id number] Completed 201909/23/2021 Encounte r for full-ter m uncompli cated delivery ;Practic e ID: 0001 Emma conrad, [facility] 10:31:36 Single live from singleto n pregnanc y [id number] Completed 201909/23/2021 Single live ;Pr actice ID: 0001 Emma Cordova [place], [facility] 10:31:03 Gestatio n period, 39 weeks [id number] Completed 201909/23/2021 39 weeks gestatio n of pregnanc y;Practi ce ID: 0001 Emma conrad, [facility] 10:29:43 Past pregnanc y history of gestatio nal diabetes mellitus [id number] Active 2022 Tiffanie Flores MD [address], [place], [address], [facility] 19:36:59 Pregnanc y [id number] Completed 202208/16/2023 [facility] 14:52:19 Gestatio nal diabetes mellitus [id number] Completed 2022 h/o gdm2A. Checking BS QID, serial growth, antenata l testing [facility] 14:52:11 Problem Notes None recorded. Procedures Surgical History Date Name Laterality Status Provider Name and Address Organization Details Recorded Time 06/07/20 25 Dilation and Curettage completed Emily Millard [facility] 06/18/2025 14:42:30 02/14/20 25 Date of Last Pap Smear completed Tiffanie Boothe [facility] 06/01/2025 12:11:46 08/30/20 24 IUD Removal completed Maria T Carlton CNM [address], [place], [id number], [facility] 08/31/2024 13:59:56 08/04/20 24 IUD Insertion completed Maria T Carlton CNM [address], [place], [id number], [facility] 08/05/2024 08:44:48 07/29/20 22 Hysteroscopy completed Maria T Carlton CNM [address], [place], [address], [facility] 07/29/2022 08:52:41 07/29/20 22 Hysteroscopy completed Emma Cordova [facility] 07/29/2022 08:35:27 07/21/20 22 [facility] 12:21:30 04/17/20 20 [facility]ion [facility] 04/17/2020 12:09:21 03/20/20 20 [facility]ion [facility] 03/20/2020 12:11:51 11/22/19 18 Appendectomy completed Emma Cordova [facility] 10/01/2020 19:16:40 11/22/19 14 completed Kayla Fournier [facility] 10/08/2021 16:13:03 11/22/19 14 colonoscopy completed Emma Cordova [facility] 09/23/2021 10:34:09 11/22/19 13 Dilation and curettage completed Emma Cordova [facility] 09/23/2021 10:34:16 11/22/19 00 tonsillectomy completed Emma Cordova [facility] 09/23/2021 10:34:23 Imaging Results None recorded. Procedure Notes None recorded. Medical Equipment None Reported. Allergies Allergen ID Allergen Name Allergen Category Reaction Reaction Severity Criticality Documentation Date Start Date Code Code System Note Provider Name and Address Organization Details Recorded Time prednison e medicatio n Not available Not available Not available 01/05/2023 8640 RxNorm Emma Cordova [facility], [facility] 3 10:49:28 2666 amoxicill in medicatio n Not available Not available Not available 10/01/2020 723 RxNorm Emma Cordova [facility], [facility] 1 10:27:49 81355 aluminum aspirin Not available Not available Not available Not available 10/08/20252020 611 RxNorm unrec ogniz ed react ion (text : Other , code: 46972 07) (from [facility]) Not Available [facility] - External Data Service - prod 5 09:39:58 91 aspirin medicatio n Not available Not available Not available 03/04/2020 1191 RxNorm Caterina Aquino [facility], [facility] 0 17:51:36 Medications Name Sig [...] completed Not Available Not Available Not Available metformin 500 mg tablet TAKE 1 TABLET BY MOUTH TWICE A DAY active Not Available Not Available No t Available Vitamin B-6 25 mg tablet 09/03 [...] Prescrib ed Elsewher e: No [facility] By: raul correa DateTime : 04/23/20 15 11:17:56 AM Not [...] TABLET BY MOUTH THREE TIMES A DAY 10/29 completed Not Available Not Available Not Available metronida zole 0.75 % (37.5 mg/5 gram) vaginal gel Insert 1 applicat orful every day by vaginal route. 10/01 completed Not Available Not Available Not Available Monistat 7 2 % vaginal cream insert 1 applicat orful by vaginal route every day at bedtime 02/01 completed Prescrib ed Elsewher e: No Locat ion: [facility] odify By: raul correa DateTime : 10/10/20 15 11:00:00 AM Not Available Not Available Not Available prednison e 20 mg tablet TAKE 3 TABLETS BY MOUTH EVERY DAY FOR 5 DAYS 01/05 completed Not Available Not Available Not Available Lantus U-100 Insulin 100 unit/mL subcutane ous solution active Not Available Not Available Not Available Diflucan 150 mg tablet take 1 tablet by oral route once 04/26 completed Prescrib ed Elsewher e: No Locat ion: [facility] odify By: annalisa turner DateTime : 03/29/20 [...] ondansetr on 8 mg disintegr ating tablet PLACE 1 TABLET BY TRANSLIN GUAL ROUTE TWICE A DAY active Not Available Not Available No t Available Macrobid 100 mg capsule Take 1 capsule every 12 hours by oral route. 10/29 completed Not Available Not Available Not Available [...] ed Elsewher e: No Locat ion: [facility] odify By: senait palomo DateTime : 07/21/20 18 04:08:38 PM Not Available Not Available Not Available dicyclomi ne 20 mg tablet 10/01 completed Not Available Not Available Not Available betametha sone valerate 0.1 % topical cream apply by topical route every day a thin layer to the affected area(s) 02/01 completed Prescrib ed Elsewher e: No Locat ion: [facility] odify By: [email or web address] z Encoun ter DateTime : 10/10/20 15 11:00:00 AM Not Available Not Available Not Available OneTouch Ultra Test strips Take 1 strip 4 times a day by miscell, route. active Not Available Not Available No t Available dexametha sone 1 mg tablet TAKE [...] ed Elsewher e: No Locat ion: [facility] odify By: annalisa turner DateTime [...] ed Elsewher e: No Locat ion: [facility] odify By: jill palomo DateTime [...] ed Elsewher e: No Locat ion: [facility] odify By: raul z Encoun ter DateTime : 09/02/20 09:21:34 AM Not Available Not Available Not Available noreskyla tobias (contrace ptive) 0.35 mg tablet TAKE 1 TABLET BY MOUTH EVERY DAY 02/13 completed Not Available Not Available Not Available Zoloft 25 mg tablet take 1 tablet by oral route every day 03/29 completed Prescrib ed Elsewher e: No Locat ion: [facility] odify By: raul z Encoun ter DateTime : 04/03/20 16 [...] ed Elsewher e: No Locat ion: [facility] odify By: annalisa turner DateTime [...] Available Not Available Not Available metoclopr amide 10 mg tablet TAKE 1 TABLET BY MOUTH EVERY 6 HOURS NEEDED FOR NAUSEA AND VOMITING active Not Available Not Available No t Available amoxicill in 875 mg-potass ium clavulana [...] Prescrib ed Elsewher e: No [facility] By: senait Theodore stacia DateTime : 08/01/20 02:08:52 PM Not Available [...] BY MOUTH THREE TIMES A DAY NEEDED 10/29 completed Not Available Not Available Not Available Terumo Insulin Syringe 0.3 mL 30 x 3/8 Inj 5 u NPH by HS 12/08 completed Prescrib ed Elsewher e: No Locat ion: [facility] odify By: lexi correa DateTime [...] ed Elsewher e: No Locat ion: [facility] odify By: margaret turner DateTime : 05/28/20 11:15:00 AM Not Available Not Available Not Available Humulin N NPH U-100 Insulin KwikPen 100 unit/mL (3 mL) subcutane ous 09/03 completed Not Available Not Available Not Available Fora L44-Z78-P 10-D20 strips-la ncets 30 gauge combo pack checking BS QID fasting and 1hr pp 07/21 completed Prescrib ed Elsewher e: No Locat ion: [facility] odify By: rubi turner DateTime : 11/27/19 [...] route. 07/21 completed Kyleena removal by 03/20/20 Not Available Not Available Not Available TRUEplus [...] Elsewher e: No Locat ion: [facility] odify By: annalisa turner DateTime : 09/13/20 09:42:56 AM Not Available Not Available Not Available OneTouch Ultra Blue Test Strip 10/01 completed Not Available Not Available Not Available Orilissa 200 mg tablet active Not Available Not Available Not Available Tresiba U-100 Insulin 100 unit/mL subcutane ous solution active Not Available Not Available Not Available [...] Updated DateTime 10/15/2025 157.48 cm 33.8 kg/m2 24291.59 g 119/73 mm[Hg] Emily Millard [facility] 10/15/2025 14:32:05 Social History Question Answer Notes LastModified by Organizat ion Details LastModified Time Tobacco Smoking Status Former Smoker Emma conrad, [facility] 10/01/2020 15:14:21 If You Are , What Was Your Level Of Alcohol Consumption Prior To ? Occasional [email or web address] Information not available 02/01/2023 Are You Blind Or Do You Have Difficulty Seeing? No [email or web address] Information not available 09/23/2021 What Is Your Level Of Caffeine Consumption? Occasional [email or web address] Information not available 10/29/2025 In The 14 Days Before Symptom Onset, Have You Had Close Contact With A Laboratory-confir med COVID-19 While That Case Was Ill? No [email or web address] Information not available 02/01/2023 In The 14 Days Before Symptom Onset, Have You Had Close Contact With A Person Who Is Under Investigation For COVID-19 While That Person Was Ill? No [email or web address] Information not available 02/01/2023 Have You Been To An Area Known To Be High Risk For COVID-19? No [email or web address] Information not available 02/01/2023 Are You Deaf Or Do You Have Serious Difficulty Hearing? No [email or web address] Information not available 09/23/2021 What Type Of Diet Are You Following? REGULAR [email or web address] Information not available 09/23/2021 What Is The Highest Grade Or Level Of School You Have Completed Or The Highest Degree You Have Received? [id number] Information not available 10/29/2025 What Was The Date Of Your Most Recent Tobacco Screening? 08/30/2024 [email or web address] Information not available 08/30/2024 Do You Use Protection During Sex? No [email or web address] Information not available 10/29/2025 Do You Use Your Seat Belt Or Car Seat Routinely? Yes [email or web address] Information not available 02/01/2023 Are You Sexually Active? Yes [email or web address] Information not available 10/29/2025 Do You Have Smoke And Carbon Monoxide Detectors In Your Home? Yes [email or web address] Information not available 02/01/2023 How Much Tobacco Do You Smoke? No Information not available 05/21/2020 Do You Use Sunscreen Routinely? Yes Information not available 02/01/2023 Has Tobacco Cessation Counseling Been Provided? No [email or web address] Information not available 02/01/2023 Do You Have Difficulty Walking Or Climbing Stairs? No [email or web address] Information not available 07/21/2022 Sex: Unknown Functional Status Question Answer Note LastModified by Organizat ion Details LastModified Time Do you use any illicit or recreational drugs? No Information not available 02/01/2023 Do you or have you ever used any other forms of tobacco or nicotine? No [email or web address] Information not available 02/01/2023 What is your level of alcohol consumption? None [email or web address] Information not available 02/01/2023 Do you or have you ever used smokeless tobacco? Never used smokeless tobacco [email or web address] Information not available 05/21/2020 Are you currently employed? No [email or web address] Information not available 10/29/2025 Are you able to walk independently without assistance or assistive devices? YESWOREST [email or web address] Information not available 09/23/2021 Are you able to care for yourself independently? Yes [email or web address] Information not available 07/21/2022 Do you have difficulty dressing, bathing, grooming, or toileting? No [email or web address] Information not available 07/21/2022 Do you or have you ever used e-cigarettes or vape? Never used electronic cigarettes [email or web address] Information not available 05/21/2020 What is your exercise level? Occasional walking [email or web address] Information not available 03/05/2020 Mental Status Question Answer Note LastModified by Organization D etails LastModified Time Do you feel stressed (tense, restless, nervous, or anxious, or unable to sleep at night)? [id number] [email or web address] Information not available 02/01/2023 Family History Relationship Description Onset Age of this Age Resolved Age Notes LastModified by Organization Details LastModified Time Mother Tuberculosis [email or web address] Not availa ble 03/04/2020 17:47:07 Brother Asthma [email or web address] Not available 0 03/04/2020 17:47:19 Daughter History of epilepsy jgumber Not available 2019 17:48:06 Medical History Condition Response Allergies (Food, seasonal, environmental ) Y Other Y Drug/Latex Allergies/Reactions Y Blood Transfusion N Breast Cancer N Dermatologic Disorders N Lung Disease N Defects or Inherited Disease N Breast Problem N Gestational Diabetes Y Hematologic disorders N Anesthesia Complications N History of STI N Deep Vein Thrombosis N Polycystic ovary syndrome N Anxiety Disorder Y Autoimmune disease N Arthritis N Polyps N Infertility N Acid Reflux (GERD) Y History of abnormal pap N Cancer N Varicosities N Stroke N Neurologic/Epilepsy N Endometriosis N High Cholesterol N Fibromyalgia N Headaches N Kidney Disease N Heart Problems N Thyroid Problems N Kidney or Bladder Problems N GI Problems N Eating Disorder [...] ICD10 Code Diagnosis IMO Codes Diagnosis Note [id number] Venkat Gotti MD [place] [address] [address] 10/08/2025 10:54:40 10/08/2025 11:44:42 Threatened miscarriage [id number] O20.0 Z3A.01 10569 [id number] CLAUDETTE SINGH MD [place] [address],[place] [address] 10/15/2025 13:26:38 10/15/2025 13:50:58 Complication occurring during [id number] O99.891 Z3A.01 [id number] Venkat Gotti MD [place] [address],[place] [address] 10/15/2025 13:27:10 10/15/2025 14:59:28 Acute urinary tract infection [id number] N39.0 [id number] Gestationa l diabetes mellitus [id number] O24.410 [id number] this patient is a 30-year-ol d female [...] Member ID Guarantor Name 10/15/2025 1 [employer] [id number] Buddy Yusuf [id number] Mariel Yusuf Notes Date Note Type Note Provider Name [...] total. Venkat Gotti MD [address], [place], [address], [place] [facility] 10/15/2025 14:58:31 OBGyn Episode No OBEpisode recorded.
--- OUTSIDE RECORDS SUMMARY | 2025-11-07 18:50 | XMS_ITS | Data Portability ---
Author Organization [facility] Address [address] [place] [address] Care Team Providers Care Organizational Development Director Name Role Phone ZHOU SWAIN Primary Care Provider Assessment No assessment recorded. Plan of Treatment Reminders Order Date Submit Date Provider Last Modified By Organization Details Last Modified Time Details Appointments FOLLOW UP 2024 09:15A Renata VALDEZ MD Not available Not available Not available U/S OB FIRST LOOK 2024 10:30A M ULTRASOUND Not available Not available Not available OB NEW 2024 11:00A Renata VALDEZ MD Not available Not available Not available Lab None recorde d. Referral None recorde d. Procedures None recorde d. Surgeries None recorde d. Imaging US, obstetr ic, transva ginal 2024 025 [email or web address], [address], [place], [address], 10/17/2025 11:38:27 US, obstetr ic, transva ginal 2024 025 [email or web address], [address], [place], [address], 10/08/2025 18:48:46 Medication Orders OneTouc h Ultra Test strips 2024 025 [id number], [address] [place], [address], 10/15/2025 14:52:18 Macrobi d 100 mg capsule 2024 025 [facility][id number], [address] [place], [address], 10/29/2025 11:25:47 Patient TargetsNo targets recorded. Patient InstructionsNo instructions [...] Abnor mal: No Resul ting Lab: [facility] [address] [facility] [address] Tel: CULTU RE ----- ----- ----- --- Cultu re resul t (>=3 organ isms prese nt) indic ates possi ble conta minat ion. Repea t cultu re if sympt oms indic ate. Not Available [facility] (Lab) [address] [facility], [place], [address], 10/10/2025 08:41:21 10/08/2010/08/2025 US, obste tric, trans vagin al No observ ation record ed. [email or web address] [address] [address], [place], [address], 10/08/2025 15:50:26 10/08/2010/08/2025 US, obste tric, trans vagin al No observ ation record ed. [email or web address] [address] [address], [place], [address], 10/08/2025 20:28:04 10/15/20 25 10/15/2025 US, obste tric, trans vagin al No observ ation record ed. [email or web address] [address] [address], [place], [address], 10/15/2025 14:43:23 10/15/20 25 10/15/2025 US, obste tric, trans vagin al No observ ation record ed. [email or web address] [address], [place], [address], 10/15/2025 15:11:39 10/29/20 25 10/29/2025 US, obste tric, 1st trime ster No observ ation record ed. [email or web address] [address], [place], [address], 10/29/2025 17:12:57 Result Notes None recorded. Problems Name Problem SNOMED Code Status Onset Date Resolution Date Notes Provider Name and Address Organization Details Recorded Time Gestatio nal diabetes mellitus class A2 02008015 Completed 5u NPH AM, 5u Lispro Lunch, 15u NPH @ HS - [facility] 03/31 [facility] Rosa Elena Weber [facility] 3 14:52:11 Cholesta sis [id number] Completed 07/07 - Per Scarlett with [facility] - she spoke with Dr. Dangelo and to cont ursodiol and anticipa te/assum e cholesta sis based on presenta tion. Rpt labs next week before [facility] appt on 07/21. Might recommen d 37-38wk del José Weber [facility] 3 14:52:12 Amenorrh ea [id number] Completed 201409/23/2021 AMENORRH EA;Pract ice ID: 0001 Emma Cordova [facility] 1 10:28:02 Speciali zed medical examinat ion Completed 201409/23/2021 Routine gynecolo gical examinat ion;Prac dante ID: 0001 Emma conrad, [facility] 10:31:25 Pregnanc y test positive [id number] Completed 201409/23/2021 Positive Pregnanc y Test;Pra ctice ID: 0001 Emma conrad, [facility] 10:30:38 Uterine size for dates discrepa ncy [id number] Completed 201409/23/2021 UTERINE SIZE MEG-ANTE PAR;Prac dante ID: 0001 Emma conrad, [facility] 10:31:47 Mild hypereme sis-not delivere d [id number] Completed 201409/23/2021 Hypereme sis gravidar um, antepart um Mild;Pra ctice ID: 0001 Emma Cordova [facility], [facility] 10:30:08 Nausea and vomiting [id number] Completed 201409/23/2021 Nausea with vomiting ;Practic e ID: 0001 Emma conrad, [facility] 10:30:09 Syncope and collapse [id number] Completed 201409/23/2021 Syncope and collapse ;Practic e ID: 0001 Emma conrad, [facility] 10:31:31 Antenata l screenin g Completed 201409/23/2021 ANTENATA L SCREENIN G NEC;Prac dante ID: 0001 Emma conrad, [facility] 10:28:04 Primigra parisa [id number] Completed 201409/23/2021 Supervis ion of normal first pregnanc y;Practi ce ID: 0001 Emma conrad, [facility] 10:30:56 anatomy study Completed 201409/23/2021 [facility];P reiniertice ID: 0001 Emma Brittontz null, [facility] 10:29:10 Complica tion of pregnanc y, childbir th and/or puerperi um [id number] Completed 201409/23/2021 OTH CURR COND-ANT EPARTUM; Practice ID: 0001 Emma conrad, [facility] 10:28:17 Pregnanc y, childbir th and puerperi um finding Completed 201409/23/2021 Encntr for suprvsn of normal first preg, third trimeste r;Practi ce ID: 0001 Emma Corodva [place], [facility] 10:30:41 Urinary tract infectio us disease [id number] Completed 201409/23/2021 Urinary tract infectio n, site not specifie d;Practi ce ID: 0001 Emma conrad, [facility] 10:31:42 Eruption [id number] Completed 201409/23/2021 Rash;Rec orded Elsewher e: No Locat ion: Curtis vargas [facility] S ource: EHR Computer Support Specialist Instructor doris: N Practi ce ID: 0001 Roel lable Time: 03:30:00 PM Emma conrad [facility] 10:28:58 Pregnanc y, childbir th and puerperi um finding Completed 201409/23/2021 Oth pregnanc y related conditio ns, third trimeste r;Practi ce ID: 0001 Emma Cordova [place] [facility] 10:28:13 Noninfec tious enteriti s of intestin e Completed 201409/23/2021 Gastroen teritis; Recorded Elsewher e: No Locat ion: Curtis vargas [facility] S ource: EHR Computer Support Specialist Instructor doris: N Practi ce ID: 0001 Roel lable Time: 02:30:00 PM Emma conrad, [facility] 1 10:30:00 prematur e rupture of membrane s [id number] Completed 201409/23/2021 Pretrm evelin ROM, unsp time betw rupt and onst labr, 3rd tri;Prac dante ID: 0001 Emma conrad, [facility] 1 10:30:54 Lochia finding Completed 201509/23/2021 Encounte r for routine postpart um follow-u p;Record ed Elsewher e: No Locat ion: [facility] S ource: EHR Computer Support Specialist Instructor doris: N Practi ce ID: 0001 Roel lable Time: 01:00:00 PM Emma conrad [facility] 1 10:30:[address] Concept Completed 201509/23/2021 Encounte r for surveill ance of other contrace ptives;R ecorded Elsewher e: No Locat ion: [facility] S ource: EHR Computer Support Specialist Instructor doris: N Practi ce ID: 0001 Roel lable Time: 01:00:00 PM Emma conrad [facility] 1 10:31:20 Sexually transmit car infectio us disease [id number] Completed 201509/23/2021 STD;Romulo rded Elsewher e: No Locat ion: [facility] S ource: EHR Computer Support Specialist Instructor doris: N Practi ce ID: 0001 Roel lable Time: 10:30:00 AM Emma conrad [facility] 1 10:31:01 Uses combined oral contrace ption [id number] Completed 201609/23/2021 Encounte r for initial prescrip tion of contrace ptive pills;Re corded Elsewher e: No Locat ion: [facility] S ource: EHR Computer Support Specialist Instructor doris: N Practi ce ID: 0001 Roel lable Time: 08:30:00 AM Emma Cordova [place], [facility] 1 10:28:15 Procedur e Completed 201609/23/2021 Encounte r for checking , reinsert ion or removal of implanta ble subderma l contrace ptive;Re corded Elsewher e: No Locat ion: [facility] S ource: EHR Computer Support Specialist Instructor doris: N Ab ce ID: 0001 Roel lable Time: 08:30:00 AM Emma Corodva [place], [facility] 1 10:30:58 Infectio n screenin g Completed 201609/23/2021 Encounte r for screenin g for oth infec/pa rastc diseases ;Recorde d Elsewher e: No Locat ion: [facility] S ource: EHR Computer Support Specialist Instructor doris: Marjorie Berger ce ID: 0001 Roel lable Time: 11:00:00 AM Emma Cordova [facility], [facility] 1 10:29:58 Acute vaginiti s [id number] Completed 201609/23/2021 Acute vaginiti s;Record ed Elsewher e: No Locat ion: [facility] S ource: EHR Computer Support Specialist Instructor doris: Marjorie Berger ce ID: 0001 Roel lable Time: 11:00:00 AM Emma Cordova [place], [facility] 1 10:28:00 Vaginola bial hernia Completed 201609/23/2021 Other specifie d noninfla mmatory disorder s of vagina;R ecorded Elsewher e: No Locat ion: [facility] S ource: EHR Computer Support Specialist Instructor doris: Marjorie Berger ce ID: 0001 Roel lable Time: 11:00:00 AM Emma conrad [facility] 1 10:31:49 Counseli reilly for harmful pattern of substanc e use Completed 201609/23/2021 Tobacco abuse counseli ng;Recor ded Elsewher e: No Locat ion: [facility] S ource: EHR Computer Support Specialist Instructor doris: N Practi ce ID: 0001 Roel lable Time: 11:00:00 AM Emma Cordova [place], [facility] 10:31:[address] Concept Completed 201609/23/2021 Encntr for general adult medical exam w/o abnormal findings ;Recorde d Elsewher e: No Locat ion: [facility] S ource: EHR Computer Support Specialist Instructor doris: N Practi ce ID: 0001 Roel lable Time: 11:00:00 AM Emma Cordova [facility], [facility] 10:31:16 Increase d frequenc y of urinatio n [id number] Completed 201609/23/2021 Frequenc y of micturit ion;Romulo rded Elsewher e: No Locat ion: [facility] S ource: EHR Computer Support Specialist Instructor doris: N Practi ce ID: 0001 Roel lable Time: 11:15:00 AM Emma Cordova [facility], [facility] 10:29:56 Pregnanc y detectio n examinat ion Completed 201709/23/2021 Encounte r for pregnanc y test, result positive ;Recorde d Elsewher e: No Locat ion: [facility] S ource: EHR Computer Support Specialist Instructor doris: N Practi ce ID: 0001 Roel lable Time: 02:15:00 PM Emma conrad [facility] 1 10:30:18 Finding of regulari ty of menstrua l cycle Completed 201709/23/2021 Irregula r bleeding ;Recorde d Elsewher e: No Locat ion: [facility] S ource: EHR Computer Support Specialist Instructor doris: N Practi ce ID: 0001 Roel lable Time: 02:15:00 PM Emma Cord[facility] 1 10:29:18 Cyst of ovary Completed 201709/23/2021 Unspecif ied ovarian cyst, unspecif ied side;Rec orded Elsewher e: No Locat ion: Curtis vargas [facility] S ource: EHR Computer Support Specialist Instructor doris: N Ab ce ID: 0001 Roel lable Time: 11:00:00 AM Emma Cordova [place], [facility] 1 10:28:44 Syphilis test finding [id number] Completed 201709/23/2021 Encntr screen for infectio ns w sexl mode of transmis s;Record ed Elsewher e: No Locat ion: [facility] Ab ce ID: 0001 Roel lable Time: 11:00:00 AM Emma conrad, [facility] 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 1 10:31:18 Body mass index 30+ - obesity [id number] Completed 201709/23/2021 Body mass index (BMI) 32.0-32. 9, adult;Re corded Elsewher e: No Locat ion: Curtis vargas [facility] S ource: EHR Computer Support Specialist Instructor doris: N Ab ce ID: 0001 Roel lable Time: 11:00:00 AM Emma conrad [facility] 10:28:11 Finding of pattern of menstrua l cycle Completed 201709/23/2021 Excessiv e and frequent menstrua tion with irregula r cycle;Re corded Elsewher e: No [facility] N Jairti ce ID: 0001 Roel lable Time: 01:00:00 PM Emma conard [facility] 1 10:29:16 Mammogra phic calcific ation of breast [id number] Completed 201709/23/2021 Mammogra phic calcifcn found on diagnost ic imaging of breast;R ecorded Elsewher e: No Locat ion: [facility]: N Jairti ce ID: 0001 Roel lable Time: 01:00:00 PM Emma Cord[facility] 10:30:05 Pain in female genitali a Completed 201709/23/2021 Dysmenor jannette, unspecif ied;Romulo rded Elsewher e: No Locat ion: [facility]: N Jairti ce ID: 0001 Roel lable Time: 01:00:00 PM Emma conrad [facility] 10:30:13 Depressi ve disorder [id number] Completed 201709/23/2021 Major depressi ve disorder , single episode, unspecif ied;Romulo rded Elsewher e: No Locat ion: [facility] S [facility]: N aJirti ce ID: 0001 Roel lable Time: 09:00:00 AM Emma conrad [facility] 10:28:[address] Concept Completed 201709/23/2021 Anxiety disorder , unspecif ied;Romulo rded Elsewher e: No Locat ion: [facility]: N Jairti ce ID: 0001 Roel lable Time: 09:45:00 AM Emma conrad [facility] 11/02/202 1 10:31:09 Pregnanc y test negative [id number] Completed 201709/23/2021 Encounte r for pregnanc y test, result negative ;Recorde d Elsewher e: No Locat ion: Curtis vargas [facility]: N Practi ce ID: 0001 Roel lable Time: 09:45:00 AM Emma conrad [facility] 1 10:30:36 Blood leukocyt e number above referenc e range [id number] Completed 201709/23/2021 Elevated white blood cell count, unspecif ied;Romulo rded Elsewher e: No Locat ion: [facility] S ource: EHR Computer Support Specialist Instructor doris: N Practi ce ID: 0001 Roel lable Time: 11:45:00 AM Emma conrad, [facility] 1 10:29:54 Pelvic and perineal pain [id number] Completed 201709/23/2021 Pelvic and perineal pain;Rec orded Elsewher e: No Locat ion: [facility] S ource: EHR Computer Support Specialist Instructor odris: N Practi ce ID: 0001 Roel lable Time: 11:15:00 AM Emma conrad [facility] 10:30:16 Dysuria [id number] Completed 201709/23/2021 Dysuria; Recorded Elsewher e: No Locat ion: [facility] S [facility]: N Practi ce ID: 0001 Roel lable Time: 11:45:00 AM Emma ocnrad [facility] 10:28:56 Exposure to sexually transmis sible disorder Completed 201709/23/2021 Contact w and exposure to infect w a sexl mode of transmis s;Practi ce ID: 0001 Emma conrad, [facility] 10:29:00 Gestatio n less than 9 weeks [id number] Completed 201809/23/2021 Less than 8 weeks gestatio n of pregnanc y;Record ed Elsewher e: No [facility] S [facility]: EHR Computer Support Specialist Instructor doris: N Ab ce ID: 0001 Roel lable Time: 08:15:00 AM Emma conrad, [facility] 10:29:22 Situatio n with explicit context Completed 201809/23/2021 Suprvsn of preg w poor reprodct v or obstet hx, first tri;Romulo rded Elsewher e: No [facility] S [facility]: EHR Computer Support Specialist Instructor doris: N Jairti ce ID: 0001 Roel lable Time: 08:15:00 AM Emma conrad, [facility] 10:31:07 Threaten ed miscarri age [id number] Completed 201809/23/2021 Threaten ed ;Recorde d Elsewher e: No [facility] S our[facility]: EHR Computer Support Specialist Instructor doris: N Jairti ce ID: 0001 Roel lable Time: 10:30:00 AM Emma conrad, [facility] 10:31:38 Blighted ovum [id number] Completed 201809/23/2021 Blighted ovum and nonhydat idiform mole;Rec orded Elsewher e: No Locat ion: [facility] S ource: EHR Computer Support Specialist Instructor doris: N Jairti ce ID: 0001 Roel lable Time: 10:30:00 AM Emma conrad [facility] 10:28:08 Finding of contents of cervix [id number] Completed 201809/23/2021 Weeks of gestatio n of pregnanc y not specifie d;Record ed Elsewher e: No [facility] S [facility]: EHR Computer Support Specialist Instructor doris: N Jairti ce ID: 0001 Roel lable Time: 10:30:00 AM Emma conrad [facility] 1 10:29:13 Normal pregnanc y in multigra parisa [id number] 91196 Completed 201809/23/2021 Encounte r for suprvsn of normal pregnanc y, second trimeste r;Record ed Elsewher e: No Locat ion: Curtis vargas [facility] S ource: EHR Computer Support Specialist Instructor doris: N Ab ce ID: 0001 Roel lable Time: 05:00:00 PM Emma conrad [facility] 1 10:30:11 Antenata l screenin g for malforma tion Completed 201809/23/2021 Encounte r for antenata l screenin g for malforma tions;Re corded Elsewher e: No Locat ion: [facility] vargas [facility] S ource: EHR Computer Support Specialist Instructor doris: Marjorie Berger ce ID: 0001 Roel lable Time: 10:30:00 AM Emma conrad [facility] 1 10:28:06 Gestatio n period, 20 weeks [id number] Completed 201809/23/2021 20 weeks gestatio n of pregnanc y;Record ed Elsewher e: No [facility] S our[facility]: EHR Computer Support Specialist Instructor doris: Marjorie Berger ce ID: 0001 Roel lable Time: 11:30:00 AM Emma conrad [facility] 10:29:24 Finding of trunk structur e Completed 201909/23/2021 Oth diseases and conditio ns compl preg/chl dbrth;Re corded Elsewher e: No Locat ion: [facility] S ource: EHR Computer Support Specialist Instructor doris: Marjorie Berger ce ID: 0001 Roel lable Time: 03:15:00 PM Emma conrad [facility] 1 10:31:40 Gestatio n period, 29 weeks [id number] Completed 201909/23/2021 29 weeks gestatio n of pregnanc y;Record ed Elsewher e: No [facility]: E[facility] Computer Support Specialist Instructor doris: N Jairti ce ID: 0001 Roel lable Time: 03:15:00 PM Emma conrad, [facility] 10:29:27 Gestatio n period, 30 weeks [id number] Completed 201909/23/2021 30 weeks gestatio n of pregnanc y;Record ed Elsewher e: No Locat ion: [facility] S ource: EHR Computer Support Specialist Instructor doris: N Jairti ce ID: 0001 Roel lable Time: 10:45:00 AM Emma conrad, [facility] 10:29:29 Uterine size for dates discrepa ncy Completed 201909/23/2021 Uterine size-neeta e discrepa ncy, second trimeste r;Record ed Elsewher e: No Locat ion: [facility] S ource: EHR Computer Support Specialist Instructor doris: N Jairti ce ID: 0001 Roel lable Time: 10:45:00 AM Emma conrad, [facility] 10:31:[address] Concept Completed 201909/23/2021 Decrease d movement s, third trimeste r, unsp;Rec orded Elsewher e: No Locat ion: [facility] S ource: EHR Computer Support Specialist Instructor doris: N Jairti ce ID: 0001 Roel lable Time: 11:30:00 AM Emma conrad, [facility] 10:31:14 Prematur e rupture of membrane s [id number] Completed 201909/23/2021 Evelin ROM, 7th0 betw rupt & onst labr, unsp weeks of gest;Pra ctice ID: 0001 Emma Cordova [facility], [facility] 10:30:51 Gestatio n period, 32 weeks [id number] Completed 201909/23/2021 32 weeks gestatio n of pregnanc y;Record ed Elsewher e: No Locat ion: [facility] vargas [facility] S ource: EHR Computer Support Specialist Instructor doris: N Practi ce ID: 0001 Roel lable Time: 11:00:00 AM Emma conrad, [facility] 10:29:30 Gestatio n period, 33 weeks [id number] Completed 201909/23/2021 33 weeks gestatio n of pregnanc y;Record ed Elsewher e: No [facility] S our[facility]: EHR Computer Support Specialist Instructor doris: N Practi ce ID: 0001 Roel lable Time: 03:00:00 PM Emma conrad, [facility] 10:29:32 Gestatio n period, 34 weeks [id number] Completed 201909/23/2021 34 weeks gestatio n of pregnanc y;Record ed Elsewher e: No Locat ion: [facility] S ource: EHR Computer Support Specialist Instructor doris: N Jairti ce ID: 0001 Roel lable Time: 11:00:00 AM Emma conrad, [facility] 10:29:34 False labor before 37 complete d weeks of gestatio n [id number] Completed 201909/23/2021 False labor before 37 complete d weeks of gest, third tri;Prac dante ID: 0001 Emma conrad, [facility] 10:29:08 Gestatio n period, 35 weeks [id number] Completed 201909/23/2021 35 weeks gestatio n of pregnanc y;Record ed Elsewher e: No Locat ion: [facility] vargas [facility] S ource: EHR Computer Support Specialist Instructor doris: N Practi ce ID: 0001 Roel lable Time: 11:30:00 AM Emma conrad, [facility] 10:29:36 Gestatio nal diabetes mellitus [id number] Completed 201909/23/2021 Gestatio nal diabetes in pregnanc y, insulin controll ed;Recor ded Elsewher e: No Locat ion: Curtis vargas [facility] S ource: EHR Computer Support Specialist Instructor doris: N Practi ce ID: 0001 Roel lable Time: 10:30:00 AM Emma conrad, [facility] 10:29:52 Gestatio n period, 36 weeks [id number] Completed 201909/23/2021 36 weeks gestatio n of pregnanc y;Practi ce ID: 0001 Emma conrad, [facility] 10:29:38 Pregnanc y-induce d hyperten bo Completed 201909/23/2021 Gestatio nal htn w/o signific ant proteinu anais, third trimeste r;Practi ce ID: 0001 Emma conrad, [facility] 10:30:49 Gestatio n period, 37 weeks [id number] Completed 201909/23/2021 37 weeks gestatio n of pregnanc y;Record ed Elsewher e: No Locat ion: [facility] S ource: EHR Computer Support Specialist Instructor doris: N Practi ce ID: 0001 Roel lable Time: 10:30:00 AM Emma conrad, [facility] 10:29:40 False labor at or after 37 complete d weeks of gestatio n [id number] Completed 201909/23/2021 False labor at or after 37 complete d weeks of gestatio n;Practi ce ID: 0001 Emma conrad, [facility] 10:29:06 Gestatio n period, 38 weeks [id number] Completed 201909/23/2021 38 weeks gestatio n of pregnanc y;Record ed Elsewher e: No Locat ion: [facility] varags [facility] S ource: EHR Computer Support Specialist Instructor doris: N Practi ce ID: 0001 Roel lable Time: 10:30:00 AM Emma conrad, [facility] 1 10:29:41 Term pregnanc y delivere d [id number] Completed 201909/23/2021 Encounte r for full-ter m uncompli cated delivery ;Practic e ID: 0001 Emma conrad, [facility] 10:31:36 Single live from singleto n pregnanc y [id number] Completed 201909/23/2021 Single live ;Pr actice ID: 0001 Emma conrad, [facility] 10:31:03 Gestatio n period, 39 weeks [id number] Completed 201909/23/2021 39 weeks gestatio n of pregnanc y;Practi ce ID: 0001 Emma conrad, [facility] 10:29:43 Past pregnanc y history of gestatio nal diabetes mellitus [id number] Active 2022 Tiffanie Flores MD [address], [place], [address], [facility] 3 19:36:59 Pregnanc y [id number] Completed 202208/16/2023 José conrad [facility] 3 14:52:19 Gestatio nal diabetes mellitus [id number] Completed 2022 h/o gdm2A. Checking BS QID, serial growth, antenata l testing José conrad [facility] 3 14:52:11 Problem Notes None recorded. Procedures Surgical History Date Name Laterality Status Provider Name and Address Organization Details Recorded Time 06/07/20 25 Dilation and Curettage completed Emily Millard [facility] 06/18/2025 14:42:30 02/14/20 25 Date of Last Pap Smear completed Tiffanie Boothe [facility] 06/01/2025 12:11:46 08/30/20 24 IUD Removal completed Maria T Carlton CNM [address], [place], [address], [facility] 08/31/2024 13:59:56 08/04/20 24 IUD Insertion completed Maria T Carlton CNM [address], [place], [address], [facility] 08/05/2024 08:44:48 07/29/20 22 Hysteroscopy completed Maria T Carlton CNM [address], [place], [address], [facility] 07/29/2022 08:52:41 07/29/20 22 Hysteroscopy completed Emma Cordova [facility] 07/29/2022 08:35:27 07/21/20 22 IUD Removal completed Swetha Schwab [facility] 07/21/2022 12:21:30 04/17/20 20 IUD Insertion completed Swetha Schwab [facility] 04/17/2020 12:09:21 03/20/20 20 IUD Insertion completed Swetha Schwab [facility] 03/20/2020 12:11:51 11/22/19 18 Appendectomy completed Emma Cordova [facility] 10/01/2020 19:16:40 11/22/19 14 completed Kayla Fournier [facility] 10/08/2021 16:13:03 01/01/20 14 colonoscopy completed Emma Cordova [facility] 09/23/2021 10:34:09 11/22/19 13 Dilation and curettage completed Emma Cordova [facility] 09/23/2021 10:34:16 11/22/19 00 tonsillectomy completed Emmapat Cordova [facility] 09/23/2021 10:34:23 Imaging Results None recorded. Procedure Notes None recorded. Medical Equipment None Reported. Allergies Allergen ID Allergen Name Allergen Category Reaction Reaction Severity Criticality Documentation Date Start Date Code Code System Note Provider Name and Address Organization Details Recorded Time prednison e medicatio n Not available Not available Not available 01/05/2023 8640 RxNorm Emma Brittonmyra conrad [facility] 3 10:49:28 2666 amoxicill in medicatio n Not available Not available Not available 10/01/2020 723 RxNorm Emma Cordovaymra conrad [facility] 1 10:27:49 95291 aluminum aspirin Not available Not available Not available Not available 10/08/20252020 611 RxNorm unrec ogniz ed react ion (text : Other , code: 13297 07) (from [facility]) Not Available [place] - External Data Service - prod 5 09:39:58 91 aspirin medicatio n Not available Not available Not available 03/04/2020 1191 RxNorm Caterina Miles conrad [facility] 0 17:51:36 Medications Name Sig Start [...] ed Elsewher e: No Locat ion: [facility] odify By: raul villanueva Encoun ter DateTime : 04/23/20 15 11:17:56 [...] ed Elsewher e: No [facility] By: Ncube [employer] z Encoun ter DateTime : 10/10/20 15 [...] ed Elsewher e: No Locat ion: [facility] odify By: annalisa turner DateTime [...] ed Elsewher e: No Locat ion: [facility] odify By: senait palomo DateTime : 07/21/20 18 04:08:38 PM Not Available Not Available Not Available dicyclomi ne 20 mg tablet 10/01 completed Not Available Not Available Not Available betametha sone valerate 0.1 % topical cream apply by topical route every day a thin layer to the affected area(s) 02/01 completed Prescrib ed Elsewher e: No Locat ion: [facility] odify By: [email or web address] z Encoun [...] ed Elsewher e: No Locat ion: [facility] odify By: annalisa turner DateTime [...] ed Elsewher e: No Locat ion: [facility] odify By: jill palomo DateTime [...] ed Elsewher e: No Locat ion: [facility] odify By: raul Davenport ter DateTime : 09/02/20 15 09:21:34 AM Not Available Not Available Not Available norethind jatinder (contrace ptive) 0.35 mg tablet TAKE 1 TABLET BY MOUTH EVERY DAY 02/13 completed Not Available Not Available Not Available Zoloft 25 mg tablet take 1 tablet by oral route every day 03/29 completed Prescrib ed Elsewher e: No Locat ion: [facility] odify By: raul correa DateTime [...] ed Elsewher e: No Locat ion: [facility] odify By: annalisa turner DateTime [...] ed Elsewher e: No [facility] By: senait palomo DateTime : 08/01/20 [...] x 3/8 Inj 5 u NPH by 12/08 completed Prescrib ed Elsewher e: No [facility] By: lexi correa DateTime : [...] Prescrib ed Elsewher e: No [facility] By: [email or web address] Barroso r DateTime : 05/28/20 17 11:15:00 AM Not Available Not Available Not Available Humulin N NPH U-100 Insulin KwikPen 100 unit/mL (3 mL) subcutane ous 09/03 completed Not Available Not Available Not Available Fora Q15-T16-Z 10-D20 strips-la ncets 30 gauge combo pack checking BS QID fasting and 1hr pp 07/21 completed Prescrib ed Elsewher e: No [facility] By: rubi Barroso r DateTime [...] ed Elsewher e: No Locat ion: [facility] M odify By: annalisa turner DateTime : [...] Updated DateTime 10/15/2025 157.48 cm 33.8 kg/m2 04559.59 g 119/73 mm[Hg] Emily Millard [facility] 10/15/2025 14:32:05 Date Recorded Body height Body mass index (BMI) Body weight Systolic And Diastolic Provider Name and Address Organization Details Last Updated DateTime 10/29/2025 157.48 cm 33.7 kg/m2 77376 g 124/80 mm[Hg] Xochilt Tubbs [facility] 10/29/2025 11:25:23 Social History Question Answer Notes LastModified by Organizat ion Details LastModified Time Tobacco Smoking Status Former Smoker Emma Cordova [facility], [facility] 10/01/2020 15:14:21 If You Are , What Was Your Level Of Alcohol Consumption Prior To ? Occasional [email or web address] Information not available 02/01/2023 Are You Blind Or Do You Have Difficulty Seeing? No [email or web address] Information not available 09/23/2021 What Is Your Level Of Caffeine Consumption? Occasional Information not available 10/29/2025 In The 14 Days Before Symptom Onset, Have You Had Close Contact With A Laboratory-confir med COVID-19 While That Case Was Ill? No Information not available 02/01/2023 In The 14 Days Before Symptom Onset, Have You Had Close Contact With A Person Who Is Under Investigation For COVID-19 While That Person Was Ill? No [email or web address] Information not available 02/01/2023 Have You Been To An Area Known To Be High Risk For COVID-19? No [email or web address] Information not available 02/01/2023 Are You Deaf Or Do You Have Serious Difficulty Hearing? No [email or web address] Information not available 09/23/2021 What Type Of Diet Are You Following? REGULAR [email or web address] Information not available 09/23/2021 What Is The Highest Grade Or Level Of School You Have Completed Or The Highest Degree You Have Received? [id number] Information not available 10/29/2025 What Was The Date Of Your Most Recent Tobacco Screening? 08/30/2024 [email or web address] Information not available 08/30/2024 Do You Use Protection During Sex? No [email or web address] Information not available 10/29/2025 Do You Use Your Seat Belt Or Car Seat Routinely? Yes [email or web address] Information not available 02/01/2023 Are You Sexually Active? Yes Information not available 10/29/2025 Do You Have Smoke And Carbon Monoxide Detectors In Your Home? Yes [email or web address] Information not available 02/01/2023 How Much Tobacco Do You Smoke? No Information not available 05/21/2020 Do You Use Sunscreen Routinely? Yes [email or web address] Information not available 02/01/2023 Has Tobacco Cessation Counseling Been Provided? No [email or web address] Information not available 02/01/2023 Do You Have Difficulty Walking Or Climbing Stairs? No [email or web address] Information not available 07/21/2022 Sex: Unknown Functional Status Question Answer Note LastModified by Organizat ion Details LastModified Time Do you use any illicit or recreational drugs? No Information not available 02/01/2023 Do you or have you ever used any other forms of tobacco or nicotine? No [email or web address] Information not available 02/01/2023 What is your level of alcohol consumption? None Information not available 02/01/2023 Do you or have you ever used smokeless tobacco? Never used smokeless tobacco [email or web address] Information not available 05/21/2020 Are you currently employed? No [email or web address] Information not available 10/29/2025 Are you able to walk independently without assistance or assistive devices? YESWOREST [email or web address] Information not available 09/23/2021 Are you able to care for yourself independently? Yes [email or web address] Information not available 07/21/2022 Do you have difficulty dressing, bathing, grooming, or toileting? No [email or web address] Information not available 07/21/2022 Do you or have you ever used e-cigarettes or vape? Never used electronic cigarettes [email or web address] Information not available 05/21/2020 What is your exercise level? Occasional walking guer Information not available 03/05/2020 Mental Status Question Answer Note LastModified by Organization D etails LastModified Time Do you feel stressed (tense, restless, nervous, or anxious, or unable to sleep at night)? [id number] [email or web address] Information not available 02/01/2023 Family History Relationship [...] Code Diagnosis IMO Codes Diagnosis Note [facility]26 [facility] [address] [address] 03/05/2020 14:17:28 03/07/2020 11:23:54 care 774052183 Z39.2 Continue to watch for signs/symp toms [...] paper copy of today's plan if desired [facility] education 797757125 Z30.09 Discussed all control options and pt [...] weeks post . 2481 Swetha Schwab CNM [facility] [address],[place] [address] 03/20/2020 10:56:39 03/20/2020 12:28:56 Insertion of intrauterine contraceptive device 50984140 Z30.430 Vaginitis 75997916 N76.0 Discussed use of mild soap like [...] odor noted on exam. [id number] Swetha Schwab CNM [facility] [address],[place] [address] 04/17/2020 10:28:01 04/17/2020 12:36:54 IUD check 963538520 Z30.431 Pt doing well. No complaints . Unable to see strings. U/S ordered. [id number] Venkat Valdez MD [facility] [address],[place] [address] 04/17/2020 10:50:50 04/17/2020 11:23:56 Mechanical complication of intrauterine contraceptive device 467703250 T83.39XA [id number] Maria T Carlton CNM [facility] [address],[place] [address] 05/21/2020 10:26:33 05/21/2020 11:40:42 Vaginitis 53641384 N76.0 Mass of right breast 452 6405005 7193992 N63.10 78123 Maria T Carlton CNM [facility] [address],[place] [address] 10/01/2020 14:54:13 10/01/2020 17:52:14 Mastitis associated with 379363437 O91.23 [id number] Maria T Carlton [facility] [address],[place] [address] 09/23/2021 09:23:09 09/23/2021 11:11:03 Dysmenorrhea 926461367 N94.6 [id number] Venkat Valdez MD [facility] [address] [address] 09/23/2021 09:21:32 09/23/2021 10:11:19 Pain in pelvis 91972199 R10.2 [id number] Swetha Schwab [facility] [address],[place] [address] 09/24/2021 10:04:00 09/24/2021 11:52:09 [id number] Swetha Schwab [facility] [address],[place] [address] 10/13/2021 09:38:43 10/13/2021 12:11:58 Gynecologic examination 75875687 Z01.419 Take Calcium with Vitamin D 1200mg [...] paper copy of today's plan if desired. 99472 Venkat Valdez MD [facility] [address],[place] [address] 11/03/2021 09:19:52 11/03/2021 12:45:09 Pain in pelvis 81908725 R10.2 [id number] Venkat Valdez MD [facility] [address],[place] [address] 03/17/2022 11:51:43 03/17/2022 12:33:52 Pain in pelvis 41752678 R10.2 [id number] Venkat Valdez MD [facility] [address],[place] [address] 07/17/2022 13:14:21 07/17/2022 13:59:55 Uncertain viability of 079981842 O36.80X0 Z3A.00 [id number] Venkat Valdez MD [facility] [address],[place] [address] 07/17/2022 14:13:20 07/17/2022 14:30:02 test positive 777756511 Z32.01 Pt here with 3 faint positive [...] HCG. Pt verbalized undertstan chaparrita. ALEXEY jung [id number] Swetha Schwab [place] [address] [address] 07/21/2022 10:26:55 07/22/2022 03:50:54 Urinary symptoms 560316450 R39.9 Removal of intrauterine device 03527097 Z30.432 NO CHARGE VISITJie ble to remove. Will need to schedule surgical removal. Pt has specifical ly requested female. She has [facility] 753595159 Z30.9 Discussed all control options in great [...] verbalized understand ing. Planning removal of IUD. [id number] Maria T Carlton CNM [facility] [address],[place] [address] 07/24/2022 10:09:28 07/24/2022 12:56:34 Mechanical complication of intrauterine contraceptive device 401897358 T83.39XA [id number] [facility] [address],[place] [address] 07/29/2022 08:31:32 07/29/2022 10:16:00 Screening procedure 26200178 Z13.9 Mechanical complication of intrauterine contraceptive device 968531167 T83.39XA [id number] Venkat Valdez MD [facility] [address],[place] [address] 12/24/2022 12:30:14 12/24/2022 13:38:57 Abdominal pain in early 868402572 Z33.1 Z3A.01 [id number] Tiffanie Flores MD [facility] [address],[place] [address] 01/05/2023 09:52:34 01/05/2023 11:08:07 [id number] Tiffanie Flores MD [facility] [address],[place] [address] 01/05/2023 09:52:55 01/07/2023 11:38:15 Amenorrhea 18990328 N91.2 test positive 031740669 Z32.01 Moderate h yperemesis gravidarum 314297101 O21.0 Maternal o besity complicating , childbirth and the puerperium, antepartum 5475364803 07 O99.211 bmi 38 Past pregn maryjane history of gestational diabetes mellitus 363330975 Z86.32 [id number] Tiffanie Flores MD [facility] [address],[place] [address] 01/20/2023 10:14:15 01/20/2023 10:44:31 [id number] Tiffanie Flroes MD [facility] [address] [place] [address] 02/01/2023 11:22:12 02/01/2023 12:06:15 screening 436262833 Z36.82 [id number] [facility] [address] [place] [address] 02/01/2023 11:23:56 02/02/2023 17:42:44 screening 023040692 Z36.89 Nausea and vomiting 1693 1999 R11.2 [id number] Venkat Valdez MD [facility] [address] [place] [address] 02/18/2023 12:23:48 02/18/2023 13:10:32 Abdominal pain in 731184285 O99.891 R10.9 Z3A.14 [id number] Swetha Schwab CNM [facility] [address],[place] [address] 03/04/2023 10:53:15 03/04/2023 11:50:57 Routine care 495867951 Z34.92 [id number] Venkat Valdez MD [facility] [address],[place] [address] 03/09/2023 11:49:22 03/09/2023 13:36:29 Spotting per vagina in 026351128 O26.859 Z3A.17 601396 Venkat Valdez MD [facility] [address],[place] [address] 03/24/2023 09:55:15 03/24/2023 11:17:49 screening 340644274 Z36.3 [id number] Maria T Carlton [facility] [address],[place] [address] 04/02/2023 10:39:24 04/02/2023 14:40:47 Routine care 240675172 Z34.92 [id number] Maria T Carlton [facility] [address],[place] [address] 04/28/2023 17:16:58 04/28/2023 18:36:35 Routine care 882036040 Z34.92 [id number] Maria T Carlton [facility] [address],[place] [address] 05/26/2023 12:36:23 05/26/2023 13:51:10 Routine care 526305360 Z34.92 [id number] Maria T Carlton [facility] [address],[place] [address] 06/09/2023 12:25:04 06/09/2023 13:00:34 Routine care 260735215 Z34.92 [id number] Venkat Valdez MD [facility] [address],[place] [address] 06/21/2023 12:25:43 06/21/2023 13:11:46 Abdominal pain in 655021533 O99.891 R10.9 Z3A.32 [id number] Venkat Valdez MD [facility] [address],[place] [address] 06/25/2023 11:42:53 06/25/2023 12:39:59 Gestational diabetes mellitus class A2 71480509 O24.414 [id number] Maria T Carlton [facility] [address],[place] [address] 06/25/2023 11:43:21 06/25/2023 13:14:41 Routine care 759855742 Z34.92 Pruritic disorder 650703 002 L29.9 [id number] Venkat Valdez MD [facility] [address],[place] [address] 07/02/2023 11:59:27 07/02/2023 12:37:35 Gestational diabetes mellitus class A2 07375663 O24.414 [id number] [facility] [address],[place] [address] 07/02/2023 12:00:26 07/02/2023 14:15:10 Routine care 041175911 Z34.92 [id number] Venkat Valdez MD [facility] [address],[place] [address] 07/09/2023 11:54:33 07/09/2023 12:41:17 Gestational diabetes mellitus class A2 76092689 O24.414 [id number] [facility] [address],[place] [address] 07/09/2023 11:54:55 07/09/2023 13:40:47 Routine care 952318300 Z34.92 [id number] MD Cam Rajput [address],[place] [address] 07/16/2023 11:31:37 07/16/2023 13:04:56 Gestational diabetes mellitus class A2 78025110 O24.414 [id number] Maria T Carlton [facility] [address],[place] [address] 07/16/2023 11:31:57 07/16/2023 13:50:03 Routine care 899913499 Z34.92 [id number] Venkat Valdez MD [facility] [address],[place] [address] 07/23/2023 11:55:24 07/23/2023 15:31:33 Gestational diabetes mellitus class A2 82154361 O24.414 [id number] Maria T Carlton [facility] [address],[place] [address] 07/23/2023 11:56:11 07/23/2023 14:20:32 Routine care 786594395 Z34.92 [id number] Maria T Carlton [facility] [address],[place] [address] 09/03/2023 10:37:34 09/03/2023 14:51:03 care 312819574 Z39.0 start slynd # samples given f/u wwe [id number] Maria T Carlton [facility] [address],[place] [address] 08/04/2024 14:02:09 08/05/2024 10:49:38 Screening procedure 32748688 Z13.9 Insertion of intrauterine contraceptive device 88495973 Z30.430 pt vinny well f/u one month iud check [id number] Venkat Valdez MD [facility] [address],[place] [address] 08/28/2024 14:06:50 08/28/2024 15:00:15 Pain in pelvis 64121666 R10.2 N93.9 [id number] [facility] [address],[place] [address] 08/28/2024 14:38:29 08/28/2024 14:54:07 Urinary symptoms 903722473 R39.9 [id number] Maria T Carlton CNM [facility] [address],[place] [address] 08/30/2024 18:12:03 08/31/2024 10:12:39 Screening procedure 57138835 Z13.9 Uses IUD (intrauterine device) contraception 396411227 Z97.5 Contracept ion care management 249415671 Z30.9 start slynd daily, give one month to be effective f/u wwe [id number] CLAUDETTE SINGH MD [facility] [address],[place] [address] 11/08/2024 16:19:39 11/13/2024 02:55:06 Cystocele 459480177 N81.10 - patient reports worsening bulging sensation, pelvic pain during intercours e- apex and posterior compartmen t well supported on exam; grade 2 cystocele noted- recommend pelvic floor PT as first line to strengthen pelvic floor muscles- may need further evaluation from urogyn if PT does not improve symptoms Irregular intermenstrual bleeding 46814405 N92.1 - periods previously well controlled with Slynd- no inciting events- no laceration s or abrasions on exam- will evaluate with pelvic US [id number] Venkat Valdez MD [facility] [address],[place] [address] 12/01/2024 11:57:07 12/01/2024 13:25:19 Abnormal uterine bleeding 0540505884 9100 N93.9 [id number] CLAUDETTE SINGH MD [facility] [address],[place] [address] 01/17/2025 15:22:43 01/18/2025 05:09:05 Reduced libido 5435437 R68.82 - patient reports long history of hypoactive sexual desire- symptoms present prior to pregnancie s- disruptive to relationsh ip with partner- no increased stress, no dyspareuni a- discussed no role for testostero ne supplement ation in premenopau alycia patients given risk of irreversib le side effects- discussed Mali yue, Addyi, and Vyleesi; patient would like to start Addyi therapy Dysmenorrhea 374101823 N 94.6 - patient reports periods are now regular on mini pill however still painful and heavy- pelvic US normal, no structural cause seen- suspicious for endometrio sis given cyclic heavy and painful bleeding- periods improved but not at ideal control on mini pill- Slynd not approved by insurance- will trial Orlissa for endometrio sis pain- rtc 2 months for med check [id number] Daisyty MetzgerKATLYN [facility] [address],[place] [address] 02/13/2025 16:23:26 02/14/2025 23:08:15 Gynecologic examination 03816153 Z01.419 WWEBC - condomsPap - done todaySTI [...] than 25 dietary consult advised. Questions answered. [id number] Venkat Valdez MD [facility] [address],[place] [address] 06/01/2025 11:25:47 06/01/2025 12:15:53 Finding of menstrual bleeding 622097765 Z36.87 Z3A.01 999771 [id number] Maria T Carlton CNM [facility] [address],[place] [address] 06/01/2025 11:26:27 06/01/2025 13:07:54 Threatened miscarriage 52788015 O20.0 74667 f/u hcg and possible USprecauti ons reviewedf/ u pending lab resultscal l if any bleeding [id number] Venkat Valdez MD [facility] [address],[place] [address] 06/07/2025 12:31:40 06/09/2025 03:53:07 [id number] Venkat Valdez MD [facility] [address],[place] [address] 06/18/2025 14:03:53 06/18/2025 15:21:47 Miscarriage 94194870 O03.9 66025 this patient presents for postop follow-up. She is 1 week postop from a suction D&C. She is recovering normally. Her bleeding is minimal. She has no foul-smell ing vaginal discharge. She denies any nausea, vomiting, fever, chills. We discussed contracept ion. We discussed future . She will follow up for a repeat test. [id number] Venkat Valdez MD [facility] [address],[place] [address] 10/08/2025 10:54:40 10/08/2025 11:44:42 Threatened miscarriage 81372415 O20.0 Z3A.01 84128 [id number] CLAUDETTE SINGH MD [facility] [address],[place] [address] 10/15/2025 13:26:38 10/15/2025 13:50:58 Complication occurring during 497789957 O99.891 Z3A.01 1279059228 [id number] Venkat Valdez MD [facility] [address],[place] [address] 10/15/2025 13:27:10 10/15/2025 14:59:28 Acute urinary tract infection 764023567 N39.0 890802 Gestationa l diabetes mellitus 79978112 O24.410 [id number] this patient is a 30-year-ol d female [...] 20 minutes on her care in total. [id number] CLAUDETTE SINGH MD [facility] [address] [address] 10/29/2025 10:23:11 10/29/2025 11:05:20 [id number] Maria T Carlton CNM [facility] [address] [address] 10/29/2025 10:58:16 10/29/2025 13:36:47 Amenorrhea 70058160 N91.2 76401 take pnv daily, pap up to datediscus sed with dr. valdez start 4 units [facility] at [facility] have rn call next week for blood sugars, glucose log [id number] /11/25ok for excedrin migrainef/ u 3 weeks new ob and first look Health Concerns Section Related Observation LastModified by Organization Detai ls LastModified Time None Recorded Concern Status LastModified by Organization Details LastModified Time None Recorded Advance Directives Directive None Recorded Payers Insurance Date Sequence Insurance Name Policy Number Policy Horne Covered Member ID Horne Member ID Guarantor Name 11/06/2025 1 [employer] [id number] 1 Buddy Yusuf [id number] Mariel Madelin 10/02/2025 PAYMENT PLAN Mariel Madelin 05/02/2025 1 [facility] (MEDICAID HMO) [id number] Mariel Gilbert [id number] Mariel Madelin Notes Date Note Type Note Provider Name [...] total. Venkat Valdez MD [address], [place], [address], [facility] 10/15/2025 14:58:31 10/29/2025 text/html ROS as noted in the HPI hx recent miscarriage, now amenorrhea, US todayhx gdm, quiroz started checking blood sugars, all fastings elevated Maria T Carlton CNM [address], [place], [address], [facility] 10/29/2025 13:29:56 OBGyn Episode Ob Episode Information Episode Created Date Number of Fetuses Patient Bloodtype Patient rh Status Prepregnancy Weight lbs Domestic Partner Domestic Partner Phone Father Name Casting Technician Status 03/05/20 20 1 CLOSED Fetus Data [...] Domestic Partner Domestic Partner Phone Father Name Casting Technician Status 03/05/20 20 1 CLOSED Fetus Data [...] Domestic Partner Domestic Partner Phone Father Name Casting Technician Status 03/05/20 20 1 CLOSED Fetus Data [...] Domestic Partner Domestic Partner Phone Father Name Casting Technician Status 03/05/20 20 1 CLOSED Fetus Data [...] Domestic Partner Domestic Partner Phone Father Name Casting Technician Status 03/05/20 20 1 CLOSED Fetus Data [...] Domestic Partner Domestic Partner Phone Father Name Casting Technician Status 02/02/20 23 1 A Positive [address] CLOSED Fetus Data First Name Last Name Admitted to NICU Weight (g) Sex Living Outcome Pediatric Complications Fetus ID Race Codes Race Delivery Type [phone] M true Full Term ASSISTED DELIVERY, CPAPx2 min, heat plant specialist at delivery [id number] Vacuum Assisted Vaginal Delivery Problems Problem Notes [...] rec. Obesity: serial growth, testing.Hx shoulder dystocia: MFM consult 36-37 wks repeat growth at 36 wks to discuss vaginal delivery safety.Subclinical hyperthyroid: repeat TSH 3r trimesterNeurology in April, consider daily magnesium supplement, PTL, pre-e precautionsPer pt: NST @ [facility] [place]ues[place] [facility] [place] Problem Name Start Date End Date Resolution Snomed Code Not e Cholestasis [id number] 07/07 - P er Scarlett with [facility] - she spoke with Dr. Dangelo and to cont ursodiol and anticipate/assume cholestasis based on presentation. Rpt labs next week before [facility] appt on 07/21. Might recommend 37-38wk del Gestational diabetes mellitus 02/18/2023 [id number] h/o [id number]. [facility] BS QID, serial growth, testing Gestational diabetes mellitus class A2 [id number] 5u NPH AM, 5u Lispro Lunch, 15u NPH @ HS - [facility] 03/[address] [facility] Isidro Calculation Initial Isidro Date Initial Exam [...] Weight in lbs Pre/Post Dialysis Refused Weight 213.229356232679 BP Diastolic BP Location Tested BP Systolic [...] Weight in lbs Pre/Post Dialysis Refused Weight 210.548201819076 BP Diastolic BP Location Tested BP Systolic [...] to call with changes. Pt verbalized understanding. LAEXEY jung Flowsheet Date 03/24/2023 Guerra Score Blood [...] Weight in lbs Pre/Post Dialysis Refused Weight 207.887475540677 BP Diastolic BP Location Tested BP Systolic [...] MFM, labs and urine culture today per [facility]. MFM managing blood sugars Flowsheet Date 04/28/2023 Guerra Score Blood Edema Fundus Height Fundus Units Glucose Ketones Leukocytes Nitrite Labor Signs Protein Cervic Dilation Cervic Effacement Cervic Station neg none none trace Type Weight in lbs Pre/Post Dialysis Refused Weight 209.512300966295 BP Diastolic BP Location Tested BP Systolic [...] Weight in lbs Pre/Post Dialysis Refused Weight 212.41444280306 BP Diastolic BP Location Tested BP Systolic BP Type 75 138 Fetus Heart Rate Present A 146 Present Fetus Movement A Yes Comments patient is having excessive thirst, cramping, pressure, numbness in legs, back pain, discharge, nausea and vomiting. reviewed precautions, EFW per pt at [facility] 50%, have been changing her insulin, [...] Weight in lbs Pre/Post Dialysis Refused Weight 212.15493975621 BP Diastolic BP Location Tested BP Systolic [...] Weight in lbs Pre/Post Dialysis Refused Weight 214.170720188228 BP Diastolic BP Location Tested BP Systolic BP Type 78 126 Fetus Heart Rate Present Fetus Movement A Yes Comments patient is having stomach pa in, back pain, cramping, discharge, swelling, nausea, vomiting, and itching. growth increased, consult at [facility], will check bile acids and start uradiol, [...] Weight in lbs Pre/Post Dialysis Refused Weight 215.052877706892 BP Diastolic BP Location Tested BP Systolic [...] Weight in lbs Pre/Post Dialysis Refused Weight 215.049855581242 BP Diastolic BP Location Tested BP Systolic [...] Weight in lbs Pre/Post Dialysis Refused Weight 217.723388779855 BP Diastolic BP Location Tested BP Systolic [...] Weight in lbs Pre/Post Dialysis Refused Weight 218.921346630735 BP Diastolic BP Location Tested BP Systolic [...] At Estimated Date of Delivery false Thalassemia (Serbian, Cameroonian, Mediterranean, Or Background): MCV < 80 false Neural Tube Defect (Meningom yelocele, Spina Bifida, Or Anencephaly) false Congenital Heart Defect false Down Syndrome false Driss-Sachs (eg, Yazidism, Cajun, Tuvaluan-Kosovan) f alse Mariluz Disease false Sickle Cell Disease Or Trait () false Hemophilia Or Other Blood Disorders false Muscular Dystrophy false Cystic Fibrosis false [place]'s [place] false Intellectual Disability/Autism false If Yes, [...] Domestic Partner Domestic Partner Phone Father Name Casting Technician Status 06/18/20 25 1 CLOSED Fetus Data First Name Last Name Admitted to NICU Weight (g) Sex Living Outcome Pediatric Complications Fetus ID Race Codes Race Delivery Type , Spontane ous [id number] Isidro Calculation Initial Isidro Date Initial Exam [...]
--- OUTSIDE RECORDS SUMMARY | 2025-11-07 18:50 | XMS_ITS | Continuity of Care Document ---
Author Organization [facility], [facility] Address [address] [place] [address] Care Team Providers Care Clay Temperer Name Role Phone ZHOU SWAIN Primary Care [...] d. Imaging None recorde d. Medication Orders None recorde d. Patient TargetsNo [...] t Abnor mal: No Resul ting Lab: [facility] [address] [facility] [address] Tel: [phone] CULTU RE ----- ----- ----- --- Cultu re resul t (>=3 organ isms prese nt) indic ates possi ble conta minat ion. Repea t cultu re if sympt oms indic ate. Not Available [facility] (Lab) [address], [place], [address], 10/10/2025 08:41:21 10/08/20 25 10/08/2025 US, obste tric, trans vagin al No observ ation record ed. [email or web address] [place] [address], [place], [address], 10/08/2025 15:50:26 10/08/20 25 10/08/2025 US, obste tric, trans vagin al No observ ation record ed. [email or web address] [address] [address], [place], [address], 10/08/2025 20:28:04 10/15/20 25 10/15/2025 US, obste tric, trans vagin al No observ ation record ed. [email or web address] [place] [address], [place], [address], 10/15/2025 14:43:23 10/15/20 25 10/15/2025 US, obste tric, trans vagin al No observ ation record ed. [email or web address] Nydia [address], [place], [address], 10/15/2025 15:11:39 10/29/20 25 10/29/2025 US, obste tric, 1st trime ster No observ ation record ed. [email or web address] Nydia [address], [place], [address], 10/29/2025 17:12:57 Result Notes None recorded. Problems Name Problem SNOMED Code Status Onset Date Resolution Date Notes Provider Name and Address Organization Details Recorded Time Gestatio nal diabetes mellitus class A2 79491881 Completed 5u NPH AM, 5u Lispro Lunch, 15u NPH @ [facility] 03/31 M Rosa Elena Weber [facility] 3 14:52:11 Cholesta sis [id number] Completed 07/07 - Per Scarlett with MFM - she spoke with Dr. Dangelo and to cont ursodiol and anticipa te/assum e cholesta sis based on presenta tion. Rpt labs next week before [facility] appt on 07/21. Might recommen d 37-38wk del José Weber [facility] 3 14:52:12 Amenorrh ea [id number] Completed 201409/23/2021 AMENORRH EA;Pract ice ID: 0001 Emma Cordova [facility], [facility] 1 10:28:02 Speciali zed medical examinat ion Completed 201409/23/2021 Routine gynecolo gical examinat ion;Prac dante ID: 0001 Emmapat Cordova [facility], [facility] 1 10:31:25 Pregnanc y test positive [id number] Completed 201409/23/2021 Positive Pregnanc y Test;Pra ctice ID: 0001 Emma Cordova [facility], [facility] 1 10:30:38 Uterine size for dates discrepa ncy [id number] Completed 201409/23/2021 UTERINE SIZE MEG-ANTE PAR;Prac dante ID: 0001 Emmapat Cordova [facility], [facility] 1 10:31:47 Mild hypereme sis-not delivere d [id number] Completed 201409/23/2021 Hypereme sis gravidar um, antepart um Mild;Pra ctice ID: 0001 Emma Brittontz [facility], [facility] 1 10:30:08 Nausea and vomiting [id number] Completed 201409/23/2021 Nausea with vomiting ;Practic e ID: 0001 Emma conrad [facility] 10:30:09 Syncope and collapse [id number] Completed 201409/23/2021 Syncope and collapse ;Practic e ID: 0001 Emma conrad [facility] 10:31:31 Antenata l screenin g Completed 201409/23/2021 ANTENATA L SCREENIN G NEC;Prac dante ID: 0001 [facility] 10:28:04 Primigra parisa [id number] Completed 201409/23/2021 Supervis ion of normal first pregnanc y;Practi ce ID: 0001 Emma Cordova [facility] 10:30:56 anatomy study Completed 201409/23/2021 [facility] SURVEY;P ractice ID: 0001 Emma Cordova [facility] 10:29:10 Complica tion of pregnanc y, childbir th and/or puerperi um [id number] Completed 201409/23/2021 OTH CURR COND-ANT EPARTUM; Practice ID: 0001 Emma Cordova [facility] 10:28:17 Pregnanc y, childbir th and puerperi um finding Completed 201409/23/2021 Encntr for suprvsn of normal first preg, third trimeste r;Practi ce ID: 0001 Emma Cordova [facility] 10:30:41 Urinary tract infectio us disease [id number] Completed 201409/23/2021 Urinary tract infectio n, site not specifie d;Practi ce ID: 0001 Emma Cordova [place] [facility] 11/02/202 1 10:31:42 Eruption [id number] Completed 201409/23/2021 Rash;Rec orded Elsewher e: No Locat ion: Aliyahmyriammiryam vargas [facility] S ource: EHR Cheese Supervisor doris: N Practi ce ID: 0001 Roel lable Time: 03:30:00 PM Emma Cordova [place], [facility] 1 10:28:58 Pregnanc y, childbir th and puerperi um finding Completed 201409/23/2021 Oth pregnanc y related conditio ns, third trimeste r;Practi ce ID: 0001 Emma Cordova [place], [facility] 10:28:13 Noninfec tious enteriti s of intestin e Completed 201409/23/2021 Gastroen teritis; Recorded Elsewher e: No Locat ion: Aliyahbrynn alicia [facility] S ource: EHR Cheese Supervisor doris: N Practi ce ID: 0001 Roel lable Time: 02:30:00 PM Emma Cordova [place], [facility] 1 10:30:00 prematur e rupture of membrane s [id number] Completed 201409/23/2021 Pretrm veelin ROM, unsp time betw rupt and onst labr, 3rd tri;Prac dante ID: 0001 Emma Cordova [place], [facility] 1 10:30:54 Lochia finding Completed 201509/23/2021 Encounte r for routine postpart um follow-u p;Record ed Elsewher e: No Locat ion: Aliyahmyriammiryam vargas [facility] S ource: EHR Cheese Supervisor doris: N Practi ce ID: 0001 Roel lable Time: 01:00:00 PM Emma Cordova [place], [facility] 1 10:30:[address] Concept Completed 201509/23/2021 Encounte r for surveill ance of other contrace ptives;R ecorded Elsewher e: No Locat ion: Curtis vargas [facility] S ource: EHR Cheese Supervisor doris: N Jairti ce ID: 0001 Roel lable Time: 01:00:00 PM Emma conrad [facility] 1 10:31:20 Sexually transmit car infectio us disease [id number] Completed 201509/23/2021 STD;Romulo rded Elsewher e: No Locat ion: [facility] N Practi ce ID: 0001 Roel lable Time: 10:30:00 AM Emma Cordova [place] [facility] 1 10:31:01 Uses combined oral contrace ption [id number] Completed 201609/23/2021 Encounte r for initial prescrip tion of contrace ptive pills;Re corded Elsewher e: No Locat ion: [facility]: N Jairti ce ID: 0001 Roel lable Time: 08:30:00 AM Emma Cordova [place] [facility] 1 10:28:15 Procedur e Completed 201609/23/2021 Encounte r for checking , reinsert ion or removal of implanta ble subderma l contrace ptive;Re corded Elsewher e: No [facility]: N Jairti ce ID: 0001 Roel lable Time: 08:30:00 AM Emma conrad [facility] 1 10:30:58 Infectio n screenin g Completed 201609/23/2021 Encounte r for screenin g for oth infec/pa rastc diseases ;Recorde d Elsewher e: No Locat ion: [facility]: N Jairti ce ID: 0001 Roel lable Time: 11:00:00 AM Emma conrad [facility] 1 10:29:58 Acute vaginiti s [id number] Completed 201609/23/2021 Acute vaginiti s;Record ed Elsewher e: No Locat ion: [facility] S ource: EHR Cheese Supervisor doris: N Jairti ce ID: 0001 Roel lable Time: 11:00:00 AM Emma conrad, [facility] 1 10:28:00 Vaginola bial hernia Completed 201609/23/2021 Other specifie d noninfla mmatory disorder s of vagina;R ecorded Elsewher e: No Locat ion: [facility] S ource: EHR Cheese Supervisor doris: N Jairti ce ID: 0001 Roel lable Time: 11:00:00 AM Emma Cordova [facility], [facility] 10:31:49 Counseli ng for harmful pattern of substanc e use Completed 201609/23/2021 Tobacco abuse counseli ng;Recor ded Elsewher e: No Locat ion: [facility] S ource: EHR Cheese Supervisor doris: N Jairti ce ID: 0001 Roel lable Time: 11:00:00 AM Emma Cordova [place], [facility] 1 10:31:[address] Concept Completed 201609/23/2021 Encntr for general adult medical exam w/o abnormal findings ;Recorde d Elsewher e: No Locat ion: [facility] S ource: EHR Cheese Supervisor doris: N Practi ce ID: 0001 Roel lable Time: 11:00:00 AM Emma Cordova [place], [facility] 10:31:16 Increase d frequenc y of urinatio n [id number] Completed 201609/23/2021 Frequenc y of micturit ion;Romulo rded Elsewher e: No Locat ion: [facility] S ource: EHR Cheese Supervisor doris: N Practi ce ID: 0001 Roel lable Time: 11:15:00 AM Emma conrad, [facility] 1 10:29:56 Pregnanc y detectio n examinat ion Completed 201709/23/2021 Encounte r for pregnanc y test, result positive ;Recorde d Elsewher e: No Locat ion: [facility]: N Jairti ce ID: 0001 Roel lable Time: 02:15:00 PM Emma conrad, [facility] 1 10:30:18 Finding of regulari ty of menstrua l cycle Completed 201709/23/2021 Irregula r bleeding ;Recorde d Elsewher e: No Locat ion: [facility]: N Ab ce ID: 0001 Roel lable Time: 02:15:00 PM Emma conrad, [facility] 1 10:29:18 Cyst of ovary Completed 201709/23/2021 Unspecif ied ovarian cyst, unspecif ied side;Rec orded Elsewher e: No Locat ion: [facility] S [facility]: N Ab ce ID: 0001 Roel lable Time: 11:00:00 AM Emma conrad [facility] 1 10:28:44 Syphilis test finding [id number] Completed 201709/23/2021 Encntr screen for infectio ns w sexl mode of transmis s;Record ed Elsewher e: No Locat ion: [facility] S [facility]: N Ab ce ID: 0001 Roel lable Time: 11:00:00 AM Emma conrad [facility] 10:31:[address] Concept Completed 201709/23/2021 Encntr for front edger exam (general ) (routine ) w/o abn findings ;Recorde d Elsewher e: No Locat ion: Aliyahbrynn alicia [facility] S ource: [facility] doris: N Jairti ce ID: 0001 Roel lable Time: 11:00:00 AM Emma Cordova [place], [facility] 1 10:31:18 Body mass index 30+ - obesity [id number] Completed 201709/23/2021 Body mass index (BMI) 32.0-32. 9, adult;Re corded Elsewher e: No [facility]: [facility] doris: N Jairti ce ID: 0001 Roel lable Time: 11:00:00 AM Emma conrad, [facility] 10:28:11 Finding of pattern of menstrua l cycle Completed 201709/23/2021 Excessiv e and frequent menstrua tion with irregula r cycle;Re corded Elsewher e: No [facility]: [facility] doris: N Jairti ce ID: 0001 Roel lable Time: 01:00:00 PM Emma Cordova [place], [facility] 10:29:16 Mammogra phic calcific ation of breast [id number] Completed 201709/23/2021 Mammogra phic calcifcn found on diagnost ic imaging of breast;R ecorded Elsewher e: No [facility] S our[facility]: [facility] doris: N Practi ce ID: 0001 Roel lable Time: 01:00:00 PM Emma conrad [facility] 10:30:05 Pain in female genitali a Completed 201709/23/2021 Dysmenor jannette, unspecif ied;Romulo rded Elsewher e: No [facility]at [facility] S ource: EHR Cheese Supervisor doris: N Practi ce ID: 0001 Roel lable Time: 01:00:00 PM Emma conrad, [facility] 1 10:30:13 Depressi ve disorder [id number] Completed 201709/23/2021 Major depressi ve disorder , single episode, unspecif ied;Romulo rded Elsewher e: No Locat ion: [facility] S ource: EHR Cheese Supervisor doris: N Jairti ce ID: 0001 Roel lable Time: 09:00:00 AM Emma Cordova [facility], [facility] 10:28:[address] Concept Completed 201709/23/2021 Anxiety disorder , unspecif ied;Romulo rded Elsewher e: No Locat ion: [facility] S [facility]: N Jairti ce ID: 0001 Roel lable Time: 09:45:00 AM Emma Cordova [facility] 1 10:31:09 Pregnanc y test negative [id number] Completed 201709/23/2021 Encounte r for pregnanc y test, result negative ;Recorde d Elsewher e: No Locat ion: [facility] S [facility]: N Jairti ce ID: 0001 Roel lable Time: 09:45:00 AM Emma conrad, [facility] 1 10:30:36 Blood leukocyt e number above referenc e range [id number] Completed 201709/23/2021 Elevated white blood cell count, unspecif ied;Romulo rded Elsewher e: No Locat ion: [facility] S ource: EHR Cheese Supervisor doris: N Practi ce ID: 0001 Roel lable Time: 11:45:00 AM Emma conrad [facility] 10:29:54 Pelvic and perineal pain [id number] Completed 201709/23/2021 Pelvic and perineal pain;Rec orded Elsewher e: No Locat ion: Curtis vargas [facility] S ource: EHR Cheese Supervisor doris: N Practi ce ID: 0001 Roel lable Time: 11:15:00 AM Emma Cordova [place], [facility] 1 10:30:16 Dysuria [id number] Completed 201709/23/2021 Dysuria; Recorded Elsewher e: No Locat ion: Curtis vargas [facility] S ource: EHR Cheese Supervisor doris: N Practi ce ID: 0001 Roel lable Time: 11:45:00 AM Emma Cordova [place], [facility] 10:28:56 Exposure to sexually transmis sible disorder Completed 201709/23/2021 Contact w and exposure to infect w a sexl mode of transmis s;Practi ce ID: 0001 Emma conrad, [facility] 10:29:00 Gestatio n less than 9 weeks [id number] Completed 201809/23/2021 Less than 8 weeks gestatio n of pregnanc y;Record ed Elsewher e: No [facility]at [facility]: [facility]: N Practi ce ID: 0001 Roel lable Time: 08:15:00 AM Emma conrad [facility] 10:29:22 Situatio n with explicit context Completed 201809/23/2021 Suprvsn of preg w poor reprodct v or obstet hx, first tri;Romulo rded Elsewher e: No Locat ion: Curtis vargas [facility] S ource: EHR Cheese Supervisor doris: N Practi ce ID: 0001 Roel lable Time: 08:15:00 AM Emma conrad, [facility] 1 10:31:07 Threaten ed miscarri age [id number] Completed 201809/23/2021 Threaten ed ;Recorde d Elsewher e: No Locat ion: Curtis vargas [facility] S ource: EHR Cheese Supervisor doris: N Jairti ce ID: 0001 Roel lable Time: 10:30:00 AM Emma conrad [facility] 10:31:38 Blighted ovum [id number] Completed 201809/23/2021 Blighted ovum and nonhydat idiform mole;Rec orded Elsewher e: No Locat ion: Curtis vargas [facility]: N Jairti ce ID: 0001 Roel lable Time: 10:30:00 AM Emma conrad [facility] 10:28:08 Finding of contents of cervix [id number] Completed 201809/23/2021 Weeks of gestatio n of pregnanc y not specifie d;Record ed Elsewher e: No Locat ion: Edith alicia [facility]: N Ab ce ID: 0001 Roel lable Time: 10:30:00 AM Emma conrad [facility] 10:29:13 Normal pregnanc y in multigra parisa [id number] 04055 Completed 201809/23/2021 Encounte r for suprvsn of normal pregnanc y, second trimeste r;Record ed Elsewher e: No Locat ion: Curtis vargas [facility] S ource: EHR Cheese Supervisor doris: N Jairti ce ID: 0001 Roel lable Time: 05:00:00 PM Emma conrad [facility] 1 10:30:11 Antenata l screenin g for malforma tion Completed 201809/23/2021 Encounte r for antenata l screenin g for malforma tions;Re corded Elsewher e: No Locat ion: Aliyahbrynn alicia [facility] S ource: EHR Cheese Supervisor doris: N Jairti ce ID: 0001 Roel lable Time: 10:30:00 AM Emma conrad [facility] 1 10:28:06 Gestatio n period, 20 weeks [id number] Completed 201809/23/2021 20 weeks gestatio n of pregnanc y;Record ed Elsewher e: No Locat ion: Curtis vargas [facility] S ource: EHR Cheese Supervisor doris: N Practi ce ID: 0001 Roel lable Time: 11:30:00 AM Emma conrad, [facility] 10:29:24 Finding of trunk structur e Completed 201909/23/2021 Oth diseases and conditio ns compl preg/chl dbrth;Re corded Elsewher e: No [facility]: EHR Cheese Supervisor doris: N Practi ce ID: 0001 Roel lable Time: 03:15:00 PM Emma conrad, [facility] 10:31:40 Gestatio n period, 29 weeks [id number] Completed 201909/23/2021 29 weeks gestatio n of pregnanc y;Record ed Elsewher e: No Locat ion: [facility] S ource: EHR Cheese Supervisor doris: N Practi ce ID: 0001 Roel lable Time: 03:15:00 PM Emma conrad [facility] 10:29:27 Gestatio n period, 30 weeks [id number] Completed 201909/23/2021 30 weeks gestatio n of pregnanc y;Record ed Elsewher e: No Locat ion: [facility] S ource: EHR Cheese Supervisor doris: N Practi ce ID: 0001 Roel lable Time: 10:45:00 AM Emma conrad, [facility] 10:29:29 Uterine size for dates discrepa ncy Completed 201909/23/2021 Uterine size-neeta e discrepa ncy, second trimeste r;Record ed Elsewher e: No Locat ion: Aliyahmyriammiryam vargas [facility] S ource: EHR Cheese Supervisor doris: N Practi ce ID: 0001 Roel lable Time: 10:45:00 AM Emma Cordova [place], [facility] 10:31:[address] Concept Completed 201909/23/2021 Decrease d movement s, third trimeste r, unsp;Rec orded Elsewher e: No Locat ion: Aliyahmyriammiryam vargas [facility] S ource: EHR Cheese Supervisor doris: N Practi ce ID: 0001 Roel lable Time: 11:30:00 AM Emma Cordova [place], [facility] 10:31:14 Prematur e rupture of membrane s [id number] Completed 201909/23/2021 Evelin ROM, 7th0 betw rupt & onst labr, unsp weeks of gest;Pra ctice ID: 0001 Emma Cordova [place], [facility] 10:30:51 Gestatio n period, 32 weeks [id number] Completed 201909/23/2021 32 weeks gestatio n of pregnanc y;Record ed Elsewher e: No Locat ion: Curtis vargas [facility] S ource: EHR Cheese Supervisor doris: N Practi ce ID: 0001 Roel lable Time: 11:00:00 AM Emma conrad, [facility] 10:29:30 Gestatio n period, 33 weeks [id number] Completed 201909/23/2021 33 weeks gestatio n of pregnanc y;Record ed Elsewher e: No Locat ion: Aliyahmyriammiryam vargas [facility] S ource: EHR Cheese Supervisor doris: N Practi ce ID: 0001 Roel lable Time: 03:00:00 PM Emma conrad, [facility] 10:29:32 Gestatio n period, 34 weeks [id number] Completed 201909/23/2021 34 weeks gestatio n of pregnanc y;Record ed Elsewher e: No Locat ion: Curtis vargas [facility] S ource: EHR Cheese Supervisor doris: N Practi ce ID: 0001 Roel lable Time: 11:00:00 AM Emma Tasha [place], [facility] 10:29:34 False labor before 37 complete d weeks of gestatio n [id number] Completed 201909/23/2021 False labor before 37 complete d weeks of gest, third tri;Prac dante ID: 0001 Emma Cordova [place], [facility] 10:29:08 Gestatio n period, 35 weeks [id number] Completed 201909/23/2021 35 weeks gestatio n of pregnanc y;Record ed Elsewher e: No Locat ion: Curtis vargas [facility] S ource: EHR Cheese Supervisor doris: N Practi ce ID: 0001 Roel lable Time: 11:30:00 AM Emma Cordova [place], [facility] 10:29:36 Gestatio nal diabetes mellitus [id number] Completed 201909/23/2021 Gestatio nal diabetes in pregnanc y, insulin controll ed;Recor ded Elsewher e: No Locat ion: [facility] S ource: EHR Cheese Supervisor doris: N Practi ce ID: 0001 Roel lable Time: 10:30:00 AM Emma Cordova [place], [facility] 10:29:52 Gestatio n period, 36 weeks [id number] Completed 201909/23/2021 36 weeks gestatio n of pregnanc y;Practi ce ID: 0001 Emma conrad, [facility] 10:29:38 Pregnanc y-induce d hyperten bo Completed 201909/23/2021 Gestatio nal htn w/o signific ant proteinu anasi, third trimeste r;Practi ce ID: 0001 Emma conrad, [facility] 10:30:49 Gestatio n period, 37 weeks [id number] Completed 201909/23/2021 37 weeks gestatio n of pregnanc y;Record ed Elsewher e: No Locat ion: Curtis vargas [facility] S ource: EHR Cheese Supervisor doris: N Practi ce ID: 0001 Roel lable Time: 10:30:00 AM Emma conrad, [facility] 10:29:40 False labor at or after 37 complete d weeks of gestatio n [id number] Completed 201909/23/2021 False labor at or after 37 complete d weeks of gestatio n;Practi ce ID: 0001 Emma conrad, [facility] 10:29:06 Gestatio n period, 38 weeks [id number] Completed 201909/23/2021 38 weeks gestatio n of pregnanc y;Record ed Elsewher e: No Locat ion: Curtis vargas [facility] S ource: EHR Cheese Supervisor doris: N Practi ce ID: 0001 Roel lable Time: 10:30:00 AM Emma conrad, [facility] 10:29:41 Term pregnanc y delivere d [id number] Completed 201909/23/2021 Encounte r for full-ter m uncompli cated delivery ;Practic e ID: 0001 Emma conrad, [facility] 10:31:36 Single live from singleto n pregnanc y [id number] Completed 201909/23/2021 Single live ;Pr actice ID: 0001 Emma conrad, [facility] 10:31:03 Gestatio n period, 39 weeks [id number] Completed 201909/23/2021 39 weeks gestatio n of pregnanc y;Practi ce ID: 0001 Emma Cordova null, [facility] 10:29:43 Past pregnanc y history of gestatio nal diabetes mellitus [id number] Active 2022 Tiffanie Flores MD [address], [place], [address], [facility] 19:36:59 Pregnanc y [id number] Completed 202208/16/2023 [facility], [facility] 14:52:19 Gestatio nal diabetes mellitus [id number] Completed 2022 h/o gdm2A. Checking BS QID, serial growth, antenata l testing [facility] 14:52:11 Problem Notes None recorded. Procedures Surgical History Date Name Laterality Status Provider Name and Address Organization Details Recorded Time 06/07/20 25 Dilation and Curettage completed Emily Millard [facility] 06/18/2025 14:42:30 02/14/20 25 Date of Last Pap Smear completed Tiffanie Boothe [facility] 06/01/2025 12:11:46 08/30/20 24 IUD Removal completed Maria T Carlton CNM [address], [place], [address], [facility] 08/31/2024 13:59:56 08/04/20 24 IUD Insertion completed Maria T Carlton CNM [address], [place], [address], [facility] 08/05/2024 08:44:48 07/29/20 22 Hysteroscopy completed Maria T Carlton CNM [address], [place], [address], [facility] 07/29/2022 08:52:41 07/29/20 22 Hysteroscopy completed Emma Cordova [facility] 07/29/2022 08:35:27 07/21/20 22 [facility] 07/21/2022 12:21:30 04/17/20 20 IUD Insertion [facility] 04/17/2020 12:09:21 03/20/20 20 IUD Insertion [facility] 03/20/2020 12:11:51 11/22/19 18 Appendectomy completed [facility] 10/01/2020 19:16:40 11/22/19 14 completed Kayla Fournier [facility] 10/08/2021 16:13:03 11/22/19 14 colonoscopy completed [facility] 09/23/2021 10:34:09 11/22/19 13 Dilation and curettage completed [facility] 09/23/2021 10:34:16 11/22/19 00 tonsillectomy completed [facility] 09/23/2021 10:34:23 Imaging Results None recorded. Procedure Notes None recorded. Medical Equipment None Reported. Allergies Allergen ID Allergen Name Allergen Category Reaction Reaction Severity Criticality Documentation Date Start Date Code Code System Note Provider Name and Address Organization Details Recorded Time prednison e medicatio n Not available Not available Not available 01/05/2023 8640 RxNorm Emma conrad [facility] 3 10:49:28 2666 amoxicill in medicatio n Not available Not available Not available 10/01/2020 723 RxNorm Emma conrad [facility] 1 10:27:49 05305 aluminum aspirin Not available Not available Not available Not available 10/08/20252020 611 RxNorm pradeep ross ed react ion (text : Other , code: 71395 07) (from [facility]) Not Available vining - External Data Service - prod 5 09:39:58 91 aspirin medicatio n Not available Not available Not available 03/04/2020 1191 RxNorm Caterina Aquino [facility], [facility] 0 17:51:36 Medications Name [...] Prescrib ed Elsewher e: No Locat ion: [facility] odify By: [email or web address] correa DateTime : 04/23/20 15 11:17:56 AM [...] Elsewher e: No Locat ion: Curtis vargas [facility] odify By: raul z Encoun ter [...] Prescrib ed Elsewher e: No [facility] By: annalisa turner DateTime : [...] Prescrib ed Elsewher e: No Locat ion: [facility] [address] odify By: senait palomo DateTime : 07/21/20 18 04:08:38 PM Not Available Not Available Not Available dicyclomi ne 20 mg tablet 10/01 completed Not Available Not Available Not Available betametha sone valerate 0.1 % topical cream apply by topical route every day a thin layer to the affected area(s) 02/01 completed Prescrib ed Elsewher e: No Locat ion: [facility] [address] odify By: [email or web address] z Encoun ter DateTime [...] Prescrib ed Elsewher e: No Locat ion: [facility] [address] odify By: annalisa turner DateTime : 09/12/20 [...] Prescrib ed Elsewher e: No Locat ion: [facility] [address] odify By: jill palomo DateTime : 04/03/20 [...] Prescrib ed Elsewher e: No Locat ion: [facility] [address] odify By: raul correa DateTime : 09/02/20 15 09:21:34 AM Not Available Not Available Not Available norethind jatinder (contrace ptive) 0.35 mg tablet TAKE 1 TABLET BY MOUTH EVERY DAY 02/13 completed Not Available Not Available Not Available Zoloft 25 mg tablet take 1 tablet by oral route every day 03/29 completed Prescrib ed Elsewher e: No Locat ion: [facility] odify By: [email or web address] z Encoun ter [...] Prescrib ed Elsewher e: No [facility] By: annalisa turner DateTime : [...] Prescrib ed Elsewher e: No Locat ion: [facility] [address] odify By: senait palomo DateTime : 08/01/20 [...] Prescrib ed Elsewher e: No Locat ion: [facility] [address] odify By: lexi correa DateTime : 12/08/19 [...] Prescrib ed Elsewher e: No Locat ion: [facility] [address] odify By: [email or web address] Barroso r DateTime : 05/28/20 11:15:00 AM Not Available Not Available Not Available Humulin N NPH U-100 Insulin KwikPen 100 unit/mL (3 mL) subcutane ous 09/03 completed Not Available Not Available Not Available Fora R39-D96-H 10-D20 strips-la ncets 30 gauge combo pack checking BS QID fasting and 1hr pp 07/21 completed Prescrib ed Elsewher e: No Locat ion: [facility] [address] odify By: [email or web address] Barroso r DateTime : 11/27/19 11:22:44 AM [...] Prescrib ed Junie e: No Locat ion: [facility] M odify By: annalisa turner DateTime [...] Updated DateTime 10/29/2025 157.48 cm 33.7 kg/m2 72565 g 124/80 mm[Hg] Xochilt Tubbs [facility] 10/29/2025 11:25:23 Social History Question Answer Notes LastModified by Organizat ion Details LastModified Time Tobacco Smoking Status Former Smoker Emma conrad, [facility] 10/01/2020 15:14:21 If You Are , What Was Your Level Of Alcohol Consumption Prior To ? Occasional Information not available 02/01/2023 Are You Blind Or Do You Have Difficulty Seeing? No [email or web address] Information not available 09/23/2021 What Is Your Level Of Caffeine Consumption? Occasional [email or web address] Information not available 10/29/2025 In The 14 Days Before Symptom Onset, Have You Had Close Contact With A Laboratory-confir med COVID-19 While That Case Was Ill? No [email or web address] Information not available 02/01/2023 In The 14 Days Before Symptom Onset, Have You Had Close Contact With A Person Who Is Under Investigation For COVID-19 While That Person Was Ill? No [email or web address] Information not available 02/01/2023 Have You Been To An Area Known To Be High Risk For COVID-19? No [email or web address] Information not available 02/01/2023 Are You Deaf Or Do You Have Serious Difficulty Hearing? No [email or web address] Information not available 09/23/2021 What Type Of Diet Are You Following? REGULAR [email or web address] Information not available 09/23/2021 What Is The Highest Grade Or Level Of School You Have Completed Or The Highest Degree You Have Received? [id number] Information not available 10/29/2025 What Was The Date Of Your Most Recent Tobacco Screening? 08/30/2024 Information not available 08/30/2024 Do You Use Protection During Sex? No [email or web address] Information not available 10/29/2025 Do You Use Your Seat Belt Or Car Seat Routinely? Yes [email or web address] Information not available 02/01/2023 Are You Sexually Active? Yes [email or web address] Information not available 10/29/2025 Do You Have Smoke And Carbon Monoxide Detectors In Your Home? Yes [email or web address] Information not available 02/01/2023 How Much Tobacco Do You Smoke? No [email or web address] Information not available 05/21/2020 Do You Use Sunscreen Routinely? Yes [email or web address] Information not available 02/01/2023 Has Tobacco Cessation Counseling Been Provided? No [email or web address] Information not available 02/01/2023 Do You Have Difficulty Walking Or Climbing Stairs? No [email or web address] Information not available 07/21/2022 Sex: Unknown Functional Status Question Answer Note LastModified by OrganEditGridat ion Details LastModified Time Do you use any illicit or recreational drugs? No [email or web address] Information not available 02/01/2023 Do you or have you ever used any other forms of tobacco or nicotine? No Information not available 02/01/2023 What is your level of alcohol consumption? None [email or web address] Information not available 02/01/2023 Do you or have you ever used smokeless tobacco? Never used smokeless tobacco [email or web address] Information not available 05/21/2020 Are you currently employed? No [email or web address] Information not available 10/29/2025 Are you able to walk independently without assistance or assistive devices? YESWOREST [email or web address] Information not available 09/23/2021 Are you able to care for yourself independently? Yes [email or web address] Information not available 07/21/2022 Do you have difficulty dressing, bathing, grooming, or toileting? No [email or web address] Information not available 07/21/2022 Do you or have you ever used e-cigarettes or vape? Never used electronic cigarettes [email or web address] Information not available 05/21/2020 What is your exercise level? Occasional walking jgumber Information not available 03/05/2020 Mental Status Question Answer Note LastModified by Organization D etails LastModified Time Do you feel stressed (tense, restless, nervous, or anxious, or unable to sleep at night)? [id number] [email or web address] Information not available 02/01/2023 Family History Relationship [...] ICD10 Code Diagnosis IMO Codes Diagnosis Note [id number] Venkat Valdez MD [place] [address] [address] 10/08/2025 10:54:40 10/08/2025 11:44:42 Threatened miscarriage [id number] O20.0 Z3A.01 08035 [id number] CLAUDETTE SINGH MD [place] [address],[place] [address] 10/15/2025 13:26:38 10/15/2025 13:50:58 Complication occurring during [id number] O99.891 Z3A.01 [id number] Venkat Valdez MD [place] [address],[place] [address] 10/15/2025 13:27:10 10/15/2025 14:59:28 Acute urinary tract infection [id number] N39.0 407142 Gestationa l diabetes mellitus [id number] O24.410 [id number] this patient is a 30-year-ol d female [...] 20 minutes on her care in total. [id number] CLAUDETTE SINGH MD [place] [address],[place] [address] 10/29/2025 10:23:11 10/29/2025 11:05:20 [id number] [facility] [address],[place] [address] 10/29/2025 10:58:16 10/29/2025 13:36:47 Amenorrhea [id number] N91.2 26461 take pnv daily, pap up to datediscus sed with dr. valdez start 4 units [facility] have rn call next week for blood sugars, glucose log [id number] /11/25ok for excedrin migrainef/ u 3 weeks new ob and first look Health Concerns Section Related Observation LastModified by Organization Detai ls LastModified Time None Recorded Concern Status LastModified by Organization Details LastModified Time None Recorded Payers Encounter Date Sequence Insurance Name Policy Number Policy Horne Covered Member ID Horne Member ID Guarantor Name 10/29/2025 1 [employer] [id number] Buddy Yusuf [id number] Mariel Romliz Notes Date Note Type Note Provider Name a nd Address Organization Details Recorded Time 10/29/2025 text/html ROS as noted in the HPI hx recent miscarriage, now amenorrhea, [place] todayhx gdm, quiroz started checking blood sugars, all fastings elevated Maria T Carlton, [facility] [address], [place], [address], [place] [facility] 10/29/2025 13:29:56 OBGyn Episode No OBEpisode recorded.
--- OUTSIDE RECORDS SUMMARY | 2025-11-07 18:50 | XMS_ITS | Continuity of Care Document ---
Author Organization [facility] Address [address] [place] [place] [address] Care Team Providers Care Field Case Manager Name Role Phone ZHOU SWAIN Primary Care [...] obstetr ic, transva ginal 2024 025 [email or web address], [address], [place], [address], 10/08/2025 18:48:46 Medication Orders None recorde d. [...] Resul ting Lab: [facility] [address] [facility] [address] Tel: CULTU RE ----- ----- ----- --- Cultu re resul t (>=3 organ isms prese nt) indic ates possi ble conta minat ion. Repea t cultu re if sympt oms indic ate. Not Available [facility] (Lab) [address], [place], [address], 10/10/2025 08:41:21 10/08/20 25 10/08/2025 US, obste tric, trans vagin al No observ ation record ed. [email or web address] [address], [place], [address], 10/08/2025 15:50:26 10/08/20 25 10/08/2025 US, obste tric, trans vagin al No observ ation record ed. [email or web address] Nydia [address], [place], [address], 10/08/2025 20:28:04 10/15/20 25 10/15/2025 US, obste tric, trans vagin al No observ ation record ed. [email or web address] [address], [place], [address], 10/15/2025 14:43:23 10/15/20 25 10/15/2025 US, obste tric, trans vagin al No observ ation record ed. [email or web address] Nydia [address], [place], [address], 10/15/2025 15:11:39 10/29/20 25 10/29/2025 US, obste tric, 1st trime ster No observ ation record ed. [email or web address] Nydia [address], [place], [address], 10/29/2025 17:12:57 Result Notes None recorded. Problems Name Problem SNOMED Code Status Onset Date Resolution Date Notes Provider Name and Address Organization Details Recorded Time Gestatio nal diabetes mellitus class A2 16657962 Completed 5u NPH AM, 5u Lispro Lunch, 15u NPH @ HS - MF 03/31 [facility] Rosa Elena Weber [facility] 3 14:52:11 Cholesta sis [id number] Completed 07/07 - Per Scarlett with M - she spoke with Dr. Dangelo and to cont ursodiol and anticipa te/assum e cholesta sis based on presenta tion. Rpt labs next week before M appt on 07/21. Might recommen d 37-38wk del José Weber [facility] 3 14:52:12 Amenorrh ea [id number] Completed 201409/23/2021 AMENORRH EA;Pract ice ID: 0001 Emma Cordova [facility] 1 10:28:02 Speciali zed medical examinat ion Completed 201409/23/2021 Routine gynecolo gical examinat ion;Prac dante ID: 0001 Emma Cordova [facility] 1 10:31:25 Pregnanc y test positive [id number] Completed 201409/23/2021 Positive Pregnanc y Test;Pra ctice ID: 0001 Emma Cordova [facility] 1 10:30:38 Uterine size for dates discrepa ncy [id number] Completed 201409/23/2021 UTERINE SIZE MEG-ANTE PAR;Prac dante ID: 0001 Emma Cordova [facility] 1 10:31:47 Mild hypereme sis-not delivere d [id number] Completed 201409/23/2021 Hypereme sis gravidar um, antepart um Mild;Pra ctice ID: 0001 Emma conrad, [facility] 10:30:08 Nausea and vomiting [id number] Completed 201409/23/2021 Nausea with vomiting ;Practic e ID: 0001 Emma conrad, [facility] 10:30:09 Syncope and collapse [id number] Completed 201409/23/2021 Syncope and collapse ;Practic e ID: 0001 Emma conrad, [facility] 10:31:31 Antenata l screenin g Completed 201409/23/2021 ANTENATA L SCREENIN G NEC;Prac dante ID: 0001 Emampat conrad, [facility] 10:28:04 Primigra parisa [id number] Completed 201409/23/2021 Supervis ion of normal first pregnanc y;Practi ce ID: 0001 Emmapat Cordova [facility] 10:30:56 anatomy study Completed 201409/23/2021 [facility] ANATMC SURVEY;P reiniertice ID: 0001 Emma Cordova [place], [facility] 10:29:10 Complica tion of pregnanc y, childbir th and/or puerperi um [id number] Completed 201409/23/2021 OTH CURR COND-ANT EPARTUM; Practice ID: 0001 Emma Cordova [place], [facility] 10:28:17 Pregnanc y, childbir th and puerperi um finding Completed 201409/23/2021 Encntr for suprvsn of normal first preg, third trimeste r;Practi ce ID: 0001 Emma Cordova [place], [facility] 10:30:41 Urinary tract infectio us disease [id number] Completed 201409/23/2021 Urinary tract infectio n, site not specifie d;Practi ce ID: 0001 Emma Cordova [place], [facility] 10:31:42 Eruption [id number] Completed 201409/23/2021 Rash;Rec orded Elsewher e: No Locat ion: Curtis vargas [facility] S ource: EHR Flat Grinder Operator doris: N Practi ce ID: 0001 Roel lable Time: 03:30:00 PM Emma Tasha [place], [facility] 10:28:58 Pregnanc y, childbir th and puerperi um finding Completed 201409/23/2021 Oth pregnanc y related conditio ns, third trimeste r;Practi ce ID: 0001 Emma conrad, [facility] 10:28:13 Noninfec tious enteriti s of intestin e Completed 201409/23/2021 Gastroen teritis; Recorded Elsewher e: No Locat ion: [facility] vargas [facility] S ource: EHR Flat Grinder Operator doris: N Practi ce ID: 0001 Roel lable Time: 02:30:00 PM Emma conrad, [facility] 10:30:00 prematur e rupture of membrane s [id number] Completed 201409/23/2021 Pretrm evelni ROM, unsp time betw rupt and onst labr, 3rd tri;Prac dante ID: 0001 Emma Cordova [place], [facility] 10:30:54 Lochia finding Completed 201509/23/2021 Encounte r for routine postpart um follow-u p;Record ed Elsewher e: No Locat ion: [facility] vargas [facility] S ource: EHR Flat Grinder Operator doris: N Practi ce ID: 0001 Roel lable Time: 01:00:00 PM Emma conrad [facility] 1 10:30:[address] Concept Completed 201509/23/2021 Encounte r for surveill ance of other contrace ptives;R ecorded Elsewher e: No Locat ion: [facility] S ource: EHR Flat Grinder Operator doris: N Practi ce ID: 0001 Roel lable Time: 01:00:00 PM Emma conrad [facility] 1 10:31:20 Sexually transmit car infectio us disease [id number] Completed 201509/23/2021 STD;Romulo rded Elsewher e: No Locat ion: [facility] S ource: EHR Flat Grinder Operator doris: N Jairti ce ID: 0001 Roel lable Time: 10:30:00 AM Emma Cordova [facility] 1 10:31:01 Uses combined oral contrace ption [id number] Completed 201609/23/2021 Encounte r for initial prescrip tion of contrace ptive pills;Re corded Elsewher e: No Locat ion: [facility] S ource: EHR Flat Grinder Operator doris: N Jairti ce ID: 0001 Roel lable Time: 08:30:00 AM Emma conrad [facility] 1 10:28:15 Procedur e Completed 201609/23/2021 Encounte r for checking , reinsert ion or removal of implanta ble subderma l contrace ptive;Re corded Elsewher e: No Locat ion: [facility] S ource: EHR Flat Grinder Operator doris: N Practi ce ID: 0001 Roel lable Time: 08:30:00 AM Emma conrad [facility] 1 10:30:58 Infectio n screenin g Completed 201609/23/2021 Encounte r for screenin g for oth infec/pa rastc diseases ;Recorde d Elsewher e: No Locat ion: [facility] S ource: EHR Flat Grinder Operator doris: N Jairti ce ID: 0001 Roel lable Time: 11:00:00 AM Emma conrad, [facility] 1 10:29:58 Acute vaginiti s [id number] Completed 201609/23/2021 Acute vaginiti s;Record ed Elsewher e: No Locat ion: [facility] S ource: EHR Flat Grinder Operator doris: N Jairti ce ID: 0001 Roel lable Time: 11:00:00 AM Emma Cordova [facility], [facility] 10:28:00 Vaginola bial hernia Completed 201609/23/2021 Other specifie d noninfla mmatory disorder s of vagina;R ecorded Elsewher e: No Locat ion: [facility] S ource: EHR Flat Grinder Operator doris: N Jairti ce ID: 0001 Roel lable Time: 11:00:00 AM Emma Cordova [place], [facility] 1 10:31:49 Counseli ng for harmful pattern of substanc e use Completed 201609/23/2021 Tobacco abuse counseli ng;Recor ded Elsewher e: No Locat ion: [facility] S ource: EHR Flat Grinder Operator doris: N Jairti ce ID: 0001 Roel lable Time: 11:00:00 AM Emma conrad [facility] [address] 10:31:[address] Concept Completed 201609/23/2021 Encntr for general adult medical exam w/o abnormal findings ;Recorde d Elsewher e: No Locat ion: [facility] S ource: EHR Flat Grinder Operator doris: N Jairti ce ID: 0001 Roel lable Time: 11:00:00 AM Emma conrad, [facility] 1 10:31:16 Increase d frequenc y of urinatio n [id number] Completed 201609/23/2021 Frequenc y of micturit ion;Romulo rded Elsewher e: No Locat ion: [facility] theodore [facility] S ource: EHR Flat Grinder Operator doris: N Jairti ce ID: 0001 Roel lable Time: 11:15:00 AM Emma conrad, [facility] 10:29:56 Pregnanc y detectio n examinat ion Completed 201709/23/2021 Encounte r for pregnanc y test, result positive ;Recorde d Elsewher e: No Locat ion: [facility] N Jairti ce ID: 0001 Roel lable Time: 02:15:00 PM Emma conrad, [facility] 10:30:18 Finding of regulari ty of menstrua l cycle Completed 201709/23/2021 Irregula r bleeding ;Recorde d Elsewher e: No Locat ion: [facility] S ource: EHR Flat Grinder Operator doris: N Jairti ce ID: 0001 Roel lable Time: 02:15:00 PM Emma conrad, [facility] 10:29:18 Cyst of ovary Completed 201709/23/2021 Unspecif ied ovarian cyst, unspecif ied side;Rec orded Elsewher e: No Locat ion: [facility] S ource: EHR Flat Grinder Operator doris: N Jairti ce ID: 0001 Roel lable Time: 11:00:00 AM Emma conrad, [facility] 10:28:44 Syphilis test finding [id number] Completed 201709/23/2021 Encntr screen for infectio ns w sexl mode of transmis s;Record ed Elsewher e: No Locat ion: [facility] S ource: EHR Flat Grinder Operator doris: N Practi ce ID: 0001 Roel lable Time: 11:00:00 AM Emma conrad [facility] 10:31:[address] Concept Completed 201709/23/2021 Encntr for publications designer exam (general ) (routine ) w/o abn findings ;Recorde d Elsewher e: No Locat ion: [facility] vargas [facility] S [facility]: N Jairti ce ID: 0001 Roel lable Time: 11:00:00 AM Emma conrad, [facility] 1 10:31:18 Body mass index 30+ - obesity [id number] Completed 201709/23/2021 Body mass index (BMI) 32.0-32. 9, adult;Re corded Elsewher e: No Locat ion: [facility] N Ab ce ID: 0001 Roel lable Time: 11:00:00 AM Emma conrad, [facility] 1 10:28:11 Finding of pattern of menstrua l cycle Completed 201709/23/2021 Excessiv e and frequent menstrua tion with irregula r cycle;Re corded Elsewher e: No Locat ion: [facility]: N Ab ce ID: 0001 Roel lable Time: 01:00:00 PM Emma conrad [facility] 10:29:16 Mammogra phic calcific ation of breast [id number] Completed 201709/23/2021 Mammogra phic calcifcn found on diagnost ic imaging of breast;R ecorded Elsewher e: No Locat ion: [facility] S [facility]: N Jairti ce ID: 0001 Roel lable Time: 01:00:00 PM Emma conrad [facility] 1 10:30:05 Pain in female genitali a Completed 201709/23/2021 Dysmenor jannette, unspecif ied;Romulo rded Elsewher e: No Locat ion: [facility] S ource: EHR Flat Grinder Operator doris: N Jairti ce ID: 0001 Roel lable Time: 01:00:00 PM Emma Brittontz [facility], [facility] 1 10:30:13 Depressi ve disorder [id number] Completed 201709/23/2021 Major depressi ve disorder , single episode, unspecif ied;Romulo rded Elsewher e: No Locat ion: [facility] S ource: EHR Flat Grinder Operator doris: N Jairti ce ID: 0001 Roel lable Time: 09:00:00 AM Emma Cordova [facility] 10:28:[address] Concept Completed 201709/23/2021 Anxiety disorder , unspecif ied;Romulo rded Elsewher e: No Locat ion: [facility]: N Jairti ce ID: 0001 Roel lable Time: 09:45:00 AM Emma Cordova [facility], [facility] 10:31:09 Pregnanc y test negative [id number] Completed 201709/23/2021 Encounte r for pregnanc y test, result negative ;Recorde d Elsewher e: No Locat ion: [facility] S our[facility]: N Jairti ce ID: 0001 Roel lable Time: 09:45:00 AM Emma Cordova [facility] 10:30:36 Blood leukocyt e number above referenc e range [id number] Completed 201709/23/2021 Elevated white blood cell count, unspecif ied;Romulo rded Elsewher e: No Locat ion: [facility] S ource: EHR Flat Grinder Operator doris: N Jairti ce ID: 0001 Roel lable Time: 11:45:00 AM Emma conrad [facility] 1 10:29:54 Pelvic and perineal pain [id number] Completed 201709/23/2021 Pelvic and perineal pain;Rec orded Elsewher e: No Locat ion: [facility] vargas [facility] S ource: EHR Flat Grinder Operator doris: N Practi ce ID: 0001 Roel lable Time: 11:15:00 AM Emma conrad, [facility] 10:30:16 Dysuria [id number] Completed 201709/23/2021 Dysuria; Recorded Elsewher e: No Locat ion: [facility] S ource: EHR Flat Grinder Operator doris: N Practi ce ID: 0001 Roel lable Time: 11:45:00 AM Emma conrad, [facility] 10:28:56 Exposure to sexually transmis sible disorder Completed 201709/23/2021 Contact w and exposure to infect w a sexl mode of transmis s;Practi ce ID: 0001 Emma conrad, [facility] 10:29:00 Gestatio n less than 9 weeks [id number] Completed 201809/23/2021 Less than 8 weeks gestatio n of pregnanc y;Record ed Elsewher e: No Locat ion: [facility] S ource: EHR Flat Grinder Operator doris: N Practi ce ID: 0001 Roel lable Time: 08:15:00 AM Emma conrad, [facility] 10:29:22 Situatio n with explicit context Completed 201809/23/2021 Suprvsn of preg w poor reprodct v or obstet hx, first tri;Romulo rded Elsewher e: No Locat ion: [facility] the[facility]ore [facility] S ource: EHR Flat Grinder Operator doris: N Practi ce ID: 0001 Roel lable Time: 08:15:00 AM Emma Cordova [place] [facility] 1 10:31:07 Threaten ed miscarri age [id number] Completed 201809/23/2021 Threaten ed ;Recorde d Elsewher e: No Locat ion: [facility] vargas [facility] S ource: EHR Flat Grinder Operator doris: N Practi ce ID: 0001 Roel lable Time: 10:30:00 AM Emma Cordova [place], [facility] 1 10:31:38 Blighted ovum [id number] Completed 201809/23/2021 Blighted ovum and nonhydat idiform mole;Rec orded Elsewher e: No Locat ion: [facility] S [facility]: [facility]: N Jairti ce ID: 0001 Roel lable Time: 10:30:00 AM Emma Cordova [place] [facility] 1 10:28:08 Finding of contents of cervix [id number] Completed 201809/23/2021 Weeks of gestatio n of pregnanc y not specifie d;Record ed Elsewher e: No Locat ion: [facility] S [facility]: N Jairti ce ID: 0001 Roel lable Time: 10:30:00 AM Emma Cordova [place] [facility] 1 10:29:13 Normal pregnanc y in multigra parisa [id number] 05679 Completed 201809/23/2021 Encounte r for suprvsn of normal pregnanc y, second trimeste r;Record ed Elsewher e: No Locat ion: [facility] S ource: [facility] Flat Grinder Operator doris: N Practi ce ID: 0001 Roel lable Time: 05:00:00 PM Emma Tasha [place] [facility] 1 10:30:11 Antenata l screenin g for malforma tion Completed 201809/23/2021 Encounte r for antenata l screenin g for malforma tions;Re corded Elsewher e: No Locat ion: [facility] vargas [facility] S ource: EHR Flat Grinder Operator doris: N Jairti ce ID: 0001 Roel lable Time: 10:30:00 AM Emma conrad [facility] 1 10:28:06 Gestatio n period, 20 weeks [id number] Completed 201809/23/2021 20 weeks gestatio n of pregnanc y;Record ed Elsewher e: No Locat ion: [facility] vargas [facility] S ource: EHR Flat Grinder Operator doris: N Jairti ce ID: 0001 Roel lable Time: 11:30:00 AM Emma conard, [facility] 10:29:24 Finding of trunk structur e Completed 201909/23/2021 Oth diseases and conditio ns compl preg/chl dbrth;Re corded Elsewher e: No Locat ion: [facility] S ource: EHR Flat Grinder Operator doris: N Jairti ce ID: 0001 Roel lable Time: 03:15:00 PM Emma conrad [facility] 10:31:40 Gestatio n period, 29 weeks [id number] Completed 201909/23/2021 29 weeks gestatio n of pregnanc y;Record ed Elsewher e: No Locat ion: [facility] S ource: EHR Flat Grinder Operator doris: N Practi ce ID: 0001 Roel lable Time: 03:15:00 PM Emma conrad [facility] 10:29:27 Gestatio n period, 30 weeks [id number] Completed 201909/23/2021 30 weeks gestatio n of pregnanc y;Record ed Elsewher e: No Locat ion: [facility] S ource: EHR Flat Grinder Operator doris: N Jairti ce ID: 0001 Roel lable Time: 10:45:00 AM Emma conrad [facility] 1 10:29:29 Uterine size for dates discrepa ncy Completed 201909/23/2021 Uterine size-neeta e discrepa ncy, second trimeste r;Record ed Elsewher e: No Locat ion: [facility] vargas [facility] S ource: EHR Flat Grinder Operator doris: N Practi ce ID: 0001 Roel lable Time: 10:45:00 AM Emma conrad, [facility] [address] 10:31:[address] Concept Completed 201909/23/2021 Decrease d movement s, third trimeste r, unsp;Rec orded Elsewher e: No Locat ion: [facility] S ource: EHR Flat Grinder Operator doris: N Practi ce ID: 0001 Roel lable Time: 11:30:00 AM Emmapat conrad, [facility] 1 10:31:14 Prematur e rupture of membrane s [id number] Completed 201909/23/2021 Evelin ROM, 7th0 betw rupt & onst labr, unsp weeks of gest;Pra ctice ID: 0001 Emma conrad, [facility] 10:30:51 Gestatio n period, 32 weeks [id number] Completed 201909/23/2021 32 weeks gestatio n of pregnanc y;Record ed Elsewher e: No Locat ion: [facility] S ource: EHR Flat Grinder Operator doris: N Practi ce ID: 0001 Roel lable Time: 11:00:00 AM Emmapat conrad, [facility] 10:29:30 Gestatio n period, 33 weeks [id number] Completed 201909/23/2021 33 weeks gestatio n of pregnanc y;Record ed Elsewher e: No Locat ion: [facility] vargas [facility] S ource: EHR Flat Grinder Operator doris: N Practi ce ID: 0001 Roel lable Time: 03:00:00 PM Emma Tasha [place], [facility] 10:29:32 Gestatio n period, 34 weeks [id number] Completed 201909/23/2021 34 weeks gestatio n of pregnanc y;Record ed Elsewher e: No Locat ion: [facility] S ource: EHR Flat Grinder Operator doris: N Practi ce ID: 0001 Roel lable Time: 11:00:00 AM Emma Cordova [place], [facility] 10:29:34 False labor before 37 complete d weeks of gestatio n [id number] Completed 201909/23/2021 False labor before 37 complete d weeks of gest, third tri;Prac dante ID: 0001 Emma Cordova [place], [facility] 10:29:08 Gestatio n period, 35 weeks [id number] Completed 201909/23/2021 35 weeks gestatio n of pregnanc y;Record ed Elsewher e: No Locat ion: [facility] S ource: EHR Flat Grinder Operator doris: N Practi ce ID: 0001 Roel lable Time: 11:30:00 AM Emma Tasha [place], [facility] 10:29:36 Gestatio nal diabetes mellitus [id number] Completed 201909/23/2021 Gestatio nal diabetes in pregnanc y, insulin controll ed;Recor ded Elsewher e: No Locat ion: [facility] S ource: EHR Flat Grinder Operator doris: N Practi ce ID: 0001 Roel lable Time: 10:30:00 AM Emma Cordova [place], [facility] 10:29:52 Gestatio n period, 36 weeks [id number] Completed 201909/23/2021 36 weeks gestatio n of pregnanc y;Practi ce ID: 0001 Emma Cordova [place], [facility] 10:29:38 Pregnanc y-induce d hyperten bo Completed 201909/23/2021 Gestatio nal htn w/o signific ant proteinu anais, third trimeste r;Practi ce ID: 0001 Emma conrad, [facility] 10:30:49 Gestatio n period, 37 weeks [id number] Completed 201909/23/2021 37 weeks gestatio n of pregnanc y;Record ed Elsewher e: No Locat ion: [facility] var[facility] S ource: EHR Flat Grinder Operator doris: N Practi ce ID: 0001 Roel lable Time: 10:30:00 AM Emma conrad, [facility] 10:29:40 False labor at or after 37 complete d weeks of gestatio n [id number] Completed 201909/23/2021 False labor at or after 37 complete d weeks of gestatio n;Practi ce ID: 0001 Emma conrad, [facility] 10:29:06 Gestatio n period, 38 weeks [id number] Completed 201909/23/2021 38 weeks gestatio n of pregnanc y;Record ed Elsewher e: No Locat ion: [facility] S ource: EHR Flat Grinder Operator doris: N Practi ce ID: 0001 Roel lable Time: 10:30:00 AM Emma conrad, [facility] 10:29:41 Term pregnanc y delivere d [id number] Completed 201909/23/2021 Encounte r for full-ter m uncompli cated delivery ;Practic e ID: 0001 Emma conrad, [facility] 10:31:36 Single live from singleto n pregnanc y [id number] Completed 201909/23/2021 Single live ;Pr actice ID: 0001 Emma Cordova [place], [facility] 10:31:03 Gestatio n period, 39 weeks [id number] Completed 201909/23/2021 39 weeks gestatio n of pregnanc y;Practi ce ID: 0001 Emma conrad, [facility] 10:29:43 Past pregnanc y history of gestatio nal diabetes mellitus [id number] Active 2022 Tiffanie Flores MD [address], [place], [address], [facility] 19:36:59 Pregnanc y [id number] Completed 202208/16/2023 [facility] 14:52:19 Gestatio nal diabetes mellitus [id number] Completed 2022 h/o gdm2A. Checking BS QID, serial growth, antenata l testing [facility] 14:52:11 Problem Notes None recorded. Procedures Surgical History Date Name Laterality Status Provider Name and Address Organization Details Recorded Time 06/07/20 25 Dilation and Curettage completed Emily Millard [facility] 06/18/2025 14:42:30 02/14/20 25 Date of Last Pap Smear completed Tiffanie Boothe [facility] 06/01/2025 12:11:46 08/30/20 24 IUD Removal completed Maria T Carlton CNM [address], [place], [address], [facility] 08/31/2024 13:59:56 08/04/20 24 IUD Insertion completed Maria T Carlton CNM [address], [place], [address], [facility] 08/05/2024 08:44:48 07/29/20 22 Hysteroscopy completed Maria T Cartlon CNM [address], [place], [address], [facility] 07/29/2022 08:52:41 07/29/20 22 Hysteroscopy completed Emma Cordova [facility] 07/29/2022 08:35:27 07/21/20 22 [facility] 12:21:30 04/17/20 20 [facility] 04/17/2020 12:09:21 03/20/20 20 [facility] 03/20/2020 12:11:51 11/22/19 18 Appendectomy completed Emma Cordova [facility] 10/01/2020 19:16:40 11/22/19 14 completed Kayla Fournier [facility] 10/08/2021 16:13:03 11/22/19 14 colonoscopy completed Emma Cordova [facility] 09/23/2021 10:34:09 11/22/19 13 Dilation and curettage completed Emma Cordova [facility] 09/23/2021 10:34:16 11/22/19 00 tonsillectomy completed Emma Cordova [facility] 09/23/2021 10:34:23 Imaging Results None recorded. Procedure Notes None recorded. Medical Equipment None Reported. Allergies Allergen ID Allergen Name Allergen Category Reaction Reaction Severity Criticality Documentation Date Start Date Code Code System Note Provider Name and Address Organization Details Recorded Time prednison e medicatio n Not available Not available Not available 01/05/2023 8640 RxNorm Emma Cordova [facility], [facility] 3 10:49:28 2666 amoxicill in medicatio n Not available Not available Not available 10/01/2020 723 RxNorm Emma Cordova [facility], [facility] 1 10:27:49 12839 aluminum aspirin Not available Not available Not available Not available 10/08/20252020 611 RxNorm unrec ogniz ed react ion (text : Other , code: 66847 07) (from [facility]) Not Available [facility] - External Data Service - prod 5 09:39:58 91 aspirin medicatio n Not available Not available Not available 03/04/2020 1191 RxNorm Caterina Aquino [facility], [facility] 0 17:51:36 Medications Name Sig Start [...] Not Available Not Available Not Available azithromy etss 250 mg tablet 11/08 completed Not Available [...] ed Elsewher e: No Locat ion: [facility] By: raul correa DateTime : 04/23/20 [...] Prescrib ed Elsewher e: No Locat ion: [facility] odify By: raul correa DateTime : 10/10/20 [...] Prescrib ed Elsewher e: No Locat ion: [facility] odify By: annalisa turner DateTime : 03/29/20 [...] Prescrib ed Elsewher e: No Locat ion: [facility] odify By: senait palomo DateTime : 07/21/20 18 04:08:38 PM Not Available Not Available Not Available dicyclomi ne 20 mg tablet 10/01 completed Not Available Not Available Not Available betametha sone valerate 0.1 % topical cream apply by topical route every day a thin layer to the affected area(s) 02/01 completed Prescrib ed Elsewher e: No Locat ion: [facility] odify By: [email or web address] z Encoun ter DateTime [...] Prescrib ed Elsewher e: No Locat ion: [facility] odify By: annalisa turner DateTime : 09/12/20 [...] Prescrib ed Elsewher e: No Locat ion: [facility] odify By: jill palomo DateTime : 04/03/20 [...] Prescrib ed Elsewher e: No Locat ion: [facility] odify By: raul z Encoun ter DateTime [...] ion: Curtis vargas [facility] odify By: raul z Encoun ter [...] Prescrib ed Elsewher e: No Locat ion: [facility] odify By: annalisa turner DateTime : 09/09/20 [...] ed Elsewher e: No Locat ion: [facility] By: senait Theodore stacia DateTime : [...] Prescrib ed Elsewher e: No Locat ion: [facility] odify By: lexi correa DateTime : 12/08/19 [...] Prescrib ed Elsewher e: No Locat ion: [facility] odify By: margaret turenr DateTime : 05/28/20 11:15:00 AM Not Available Not Available Not Available Humulin N NPH U-100 Insulin KwikPen 100 unit/mL (3 mL) subcutane ous 09/03 completed Not Available Not Available Not Available Fora V78-U22-E 10-D20 strips-la ncets 30 gauge combo pack checking BS QID fasting and 1hr pp 07/21 completed Prescrib ed Elsewher e: No Locat ion: Curtis vargas [facility] odify By: rubi turner DateTime : [...] ion: Curtis vargas [facility] odify By: annalisa turner DateTime : [...] Tobacco Smoking Status Former Smoker Emma conrad, [facility] 10/01/2020 15:14:21 If You Are , What Was Your Level Of Alcohol Consumption Prior To ? Occasional Information not available 02/01/2023 Are You Blind Or Do You Have Difficulty Seeing? No [email or web address] Information not available 09/23/2021 What Is Your Level Of Caffeine Consumption? Occasional [email or web address] Information not available 10/29/2025 In The 14 Days Before Symptom Onset, Have You Had Close Contact With A Laboratory-confir med COVID-19 While That Case Was Ill? No [email or web address] Information not available 02/01/2023 In The 14 Days Before Symptom Onset, Have You Had Close Contact With A Person Who Is Under Investigation For COVID-19 While That Person Was Ill? No Information not available 02/01/2023 Have You Been To An Area Known To Be High Risk For COVID-19? No [email or web address] Information not available 02/01/2023 Are You Deaf Or Do You Have Serious Difficulty Hearing? No [email or web address] Information not available 09/23/2021 What Type Of Diet Are You Following? REGULAR [email or web address] Information not available 09/23/2021 What Is The Highest Grade Or Level Of School You Have Completed Or The Highest Degree You Have Received? PA49675-6 [email or web address] Information not available 10/29/2025 What Was The Date Of Your Most Recent Tobacco Screening? 08/30/2024 [email or web address] Information not available 08/30/2024 Do You Use Protection During Sex? No [email or web address] Information not available 10/29/2025 Do You Use Your Seat Belt Or Car Seat Routinely? Yes [email or web address] Information not available 02/01/2023 Are You Sexually Active? Yes [email or web address] Information not available 10/29/2025 Do You Have Smoke And Carbon Monoxide Detectors In Your Home? Yes [email or web address] Information not available 02/01/2023 How Much Tobacco Do You Smoke? No [email or web address] Information not available 05/21/2020 Do You Use Sunscreen Routinely? Yes [email or web address] Information not available 02/01/2023 Has Tobacco Cessation Counseling Been Provided? No [email or web address] Information not available 02/01/2023 Do You Have Difficulty Walking Or Climbing Stairs? No [email or web address] Information not available 07/21/2022 Sex: Unknown Functional Status Question Answer Note LastModified by [employer] ion Details LastModified Time Do you use any illicit or recreational drugs? No Information not available 02/01/2023 Do you or have you ever used any other forms of tobacco or nicotine? No [email or web address] Information not available 02/01/2023 What is your level of alcohol consumption? None [email or web address] Information not available 02/01/2023 Do you or have you ever used smokeless tobacco? Never used smokeless tobacco [email or web address] Information not available 05/21/2020 Are you currently employed? No [email or web address] Information not available 10/29/2025 Are you able to walk independently without assistance or assistive devices? YESWOREST [email or web address] Information not available 09/23/2021 Are you able to care for yourself independently? Yes [email or web address] Information not available 07/21/2022 Do you have difficulty dressing, bathing, grooming, or toileting? No [email or web address] Information not available 07/21/2022 Do you or have you ever used e-cigarettes or vape? Never used electronic cigarettes Information not available 05/21/2020 What is your exercise level? Occasional walking [email or web address] Information not available 03/05/2020 Mental Status Question Answer Note LastModified by Organization D etails LastModified Time Do you feel stressed (tense, restless, nervous, or anxious, or unable to sleep at night)? [id number] [email or web address] Information not available 02/01/2023 Family History Relationship Description Onset Age of this Age Resolved Age Notes LastModified by Organization Details LastModified Time Mother Tuberculosis [email or web address] Not availa ble 03/04/2020 17:47:07 Brother Asthma [email or web address] Not available 0 03/04/2020 17:47:19 Daughter History of epilepsy jgumber Not available 2019 17:48:06 Medical History Condition Response Other Y Blood Transfusion N Dermatologic Disorders N Gestational Diabetes Y Anxiety Disorder Y Autoimmune disease N Arthritis N Polyps N Infertility N Acid Reflux (GERD) Y Cancer N Varicosities N Stroke N Neurologic/Epilepsy N Fibromyalgia N Headaches N Kidney Disease N Heart Problems N Kidney or Bladder Problems N Eating Disorder N Art (IVF or FET) N Hepatitis/Liver Disease N No Past Medical History N Urinary Tract Infection N Asthma N Trauma/Violence N Thrombophilias N Allergies (Food, seasonal, environmental ) Y Breast Cancer N Drug/Latex Allergies/Reactions Y Lung Disease N Defects or Inherited Disease N Breast Problem N Hematologic disorders N Anesthesia Complications N History of STI N Deep Vein Thrombosis N Polycystic ovary syndrome N History of abnormal pap N Endometriosis N High Cholesterol N Thyroid Problems N GI Problems N Anemia N Psychiatric Illness N Ovarian Cancer N Diabetes Y Pulmonary (TB, Asthma) N Eczema N Abuse/Domestic Violence N Depression/ depression Y Heart Disease N Pre-Eclampsia N Hypertension N Osteoporosis N Gynecological History Statement/Question Response Abnormal Pap [...] ICD10 Code Diagnosis IMO Codes Diagnosis Note [id number] Venkat Gotti MD [facility] [address] [address] 10/08/2025 10:54:40 10/08/2025 11:44:42 Threatened miscarriage [id number] O20.0 [id number].01 [id number] Health Concerns Section Related Observation LastModified by Organization Detai ls LastModified Time None Recorded Concern Status LastModified by Organization Details LastModified Time None Recorded Payers Encounter Date Sequence Insurance Name Policy Number Policy Horne Covered Member ID Horne Member ID Guarantor Name 10/08/2025 1 [employer] [id number] Buddy Yusuf [id number] Marile Yusuf OBGyn Episode No OBEpisode recorded.
--- OUTSIDE RECORDS SUMMARY | 2025-11-07 18:50 | XMS_ITS | Continuity of Care Document ---
Author Organization [facility], [facility] Address [address] [place] [address] Care Team Providers Care Industrial Services Worker Name Role Phone ZHOU SWAIN Primary Care [...] t Abnor mal: No Resul ting Lab: [facility] [address] [facility] [address] Tel: [phone] CULTU RE ----- ----- ----- --- Cultu re resul t (>=3 organ isms prese nt) indic ates possi ble conta minat ion. Repea t cultu re if sympt oms indic ate. Not Available [facility] (Lab) [address], [place], [address], 10/10/2025 08:41:21 10/08/20 25 10/08/2025 US, obste tric, trans vagin al No observ ation record ed. [email or web address] [address], [place], [address], 10/08/2025 15:50:26 10/08/20 25 10/08/2025 US, obste tric, trans vagin al No observ ation record ed. [email or web address] Nydia [address], [place], [address], 10/08/2025 20:28:04 10/15/20 25 10/15/2025 US, obste tric, trans vagin al No observ ation record ed. [email or web address] [address], [place], [address], 10/15/2025 14:43:23 10/15/20 25 10/15/2025 US, obste tric, trans vagin al No observ ation record ed. [email or web address] Nydia [address], [place], [address], 10/15/2025 15:11:39 10/29/20 25 10/29/2025 US, obste tric, 1st trime ster No observ ation record ed. [email or web address] Nydia [address], [place], [address], 10/29/2025 17:12:57 Result Notes None recorded. Problems Name Problem SNOMED Code Status Onset Date Resolution Date Notes Provider Name and Address Organization Details Recorded Time Gestatio nal diabetes mellitus class A2 99557213 Completed 5u NPH AM, 5u Lispro Lunch, 15u NPH @ [facility] 03/31 M Rosa Elena Weber [facility] 3 14:52:11 Cholesta sis [id number] Completed 07/07 - Per Scarlett with [facility] - she spoke with Dr. Dangelo and to cont ursodiol and anticipa te/assum e cholesta sis based on presenta tion. Rpt labs next week before [facility] appt on 07/21. Might recommen d 37-38wk del José Weber [facility] 3 14:52:12 Amenorrh ea [id number] Completed 201409/23/2021 AMENORRH EA;Pract ice ID: 0001 Emma Cordova [facility], [facility] 1 10:28:02 Speciali zed medical examinat ion Completed 201409/23/2021 Routine gynecolo gical examinat ion;Prac dante ID: 0001 Emmapat Cordova [facility], [facility] 1 10:31:25 Pregnanc y test positive [id number] Completed 201409/23/2021 Positive Pregnanc y Test;Pra ctice ID: 0001 Emma Cordova [facility], [facility] 1 10:30:38 Uterine size for dates discrepa ncy [id number] Completed 201409/23/2021 UTERINE SIZE MEG-ANTE PAR;Prac dante ID: 0001 Emmapat Cordova [facility], [facility] 1 10:31:47 Mild hypereme sis-not delivere d [id number] Completed 201409/23/2021 Hypereme sis gravidar um, antepart um Mild;Pra ctice ID: 0001 Emma Brittontz [facility], [facility] 1 10:30:08 Nausea and vomiting [id number] Completed 201409/23/2021 Nausea with vomiting ;Practic e ID: [address] [facility] 10:30:09 Syncope and collapse [id number] Completed 201409/23/2021 Syncope and collapse ;Practic e ID: [address] [facility] 10:31:31 Antenata l screenin g Completed 201409/23/2021 ANTENATA L SCREENIN G NEC;Prac dante ID: 0001 [facility] 10:28:04 Primigra parisa [id number] Completed 201409/23/2021 Supervis ion of normal first pregnanc y;Practi ce ID: 0001 Emma Cordova [facility] 10:30:56 anatomy study Completed 201409/23/2021 [facility] ANATMC SURVEY;P ractice ID: 0001 Emma Cordova [facility] 10:29:10 Complica tion of pregnanc y, childbir th and/or puerperi um [id number] Completed 201409/23/2021 OTH CURR COND-ANT EPARTUM; Practice ID: 0001 Emma Cordova [facility] 10:28:17 Pregnanc y, childbir th and puerperi um finding Completed 201409/23/2021 Encntr for suprvsn of normal first preg, third trimeste r;Practi ce ID: 0001 Emma Cordova [facility] 10:30:41 Urinary tract infectio us disease [id number] Completed 201409/23/2021 Urinary tract infectio n, site not specifie d;Practi ce ID: 0001 [address] [place] [facility] 11/02/202 1 10:31:42 Eruption [id number] Completed 201409/23/2021 Rash;Rec orded Elsewher e: No Locat ion: Aliyahmyriammiryam vargas [facility] S ource: EHR Director [employer] doris: N Practi ce ID: 0001 Roel lable Time: 03:30:00 PM Emma Cordova [place], [facility] 1 10:28:58 Pregnanc y, childbir th and puerperi um finding Completed 201409/23/2021 Oth pregnanc y related conditio ns, third trimeste r;Practi ce ID: 0001 Emma Cordova [place], [facility] 10:28:13 Noninfec tious enteriti s of intestin e Completed 201409/23/2021 Gastroen teritis; Recorded Elsewher e: No Locat ion: Aliyahbrynn alicia [facility] S ource: EHR Director [employer] doris: N Practi ce ID: 0001 Roel lable Time: 02:30:00 PM Emma Cordova [place], [facility] 1 10:30:00 prematur e rupture of membrane s [id number] Completed 201409/23/2021 Pretrm evelin ROM, unsp time betw rupt and onst labr, 3rd tri;Prac dante ID: 0001 Emma Cordova [place], [facility] 1 10:30:54 Lochia finding Completed 201509/23/2021 Encounte r for routine postpart um follow-u p;Record ed Elsewher e: No Locat ion: Aliyahmyriammiryam vargas [facility] S ource: EHR Director [employer] doris: N Practi ce ID: 0001 Roel lable Time: 01:00:00 PM Emma Cordova [place], [facility] 1 10:30:[address] Concept Completed 201509/23/2021 Encounte r for surveill ance of other contrace ptives;R ecorded Elsewher e: No Locat ion: Curtis vargas [facility] S ource: EHR Director [employer] doris: N Jairti ce ID: 0001 Roel lable Time: 01:00:[address] [facility] 1 10:31:20 Sexually transmit car infectio us disease [id number] Completed 201509/23/2021 STD;Romulo rded Elsewher e: No Locat ion: [facility] [address] [facility] Practi ce ID: 0001 Roel lable Time: 10:30:00 AM Emma Cordova [place] [facility] 1 10:31:01 Uses combined oral contrace ption [id number] Completed 201609/23/2021 Encounte r for initial prescrip tion of contrace ptive pills;Re corded Elsewher e: No Locat ion: [facility] [address] S ource: [facility]: N Jairti ce ID: 0001 Roel lable Time: 08:30:00 AM Emma Cordova [place] [facility] 1 10:28:15 Procedur e Completed 201609/23/2021 Encounte r for checking , reinsert ion or removal of implanta ble subderma l contrace ptive;Re corded Elsewher e: No [facility] S [facility]: [facility]: N Jairti ce ID: 0001 Roel lable Time: 08:30:[address] [facility] 1 10:30:58 Infectio n screenin g Completed 201609/23/2021 Encounte r for screenin g for oth infec/pa rastc diseases ;Recorde d Elsewher e: No Locat ion: [facility] [address] S ource: [facility]: N Jairti ce ID: 0001 Roel lable Time: 11:00:[address] [facility] 1 10:29:58 Acute vaginiti s [id number] Completed 201609/23/2021 Acute vaginiti s;Record ed Elsewher e: No Locat ion: [facility] [address] S ource: E[employer] Director [employer] doris: N Jairti ce ID: 0001 Roel lable Time: 11:00:00 AM Emma conrad, [facility] 1 10:28:00 Vaginola bial hernia Completed 201609/23/2021 Other specifie d noninfla mmatory disorder s of vagina;R ecorded Elsewher e: No Locat ion: [facility] [address] S ource: EHR Director [employer] doris: N Jairti ce ID: 0001 Roel lable Time: 11:00:00 AM Emma Cordova [facility], [facility] 10:31:49 Counseli ng for harmful pattern of substanc e use Completed 201609/23/2021 Tobacco abuse counseli ng;Recor ded Elsewher e: No Locat ion: [facility] [address] S ource: EHR Director [employer] doris: N Jairti ce ID: 0001 Roel lable Time: 11:00:00 AM Emma Cordova [place], [facility] 1 10:31:[address] Concept Completed 201609/23/2021 Encntr for general adult medical exam w/o abnormal findings ;Recorde d Elsewher e: No Locat ion: [facility] [address] S ource: EHR Director [employer] doris: N Practi ce ID: 0001 Roel lable Time: 11:00:00 AM Emma Cordova [place], [facility] 10:31:16 Increase d frequenc y of urinatio n [id number] Completed 201609/23/2021 Frequenc y of micturit ion;Romulo rded Elsewher e: No Locat ion: [facility] [address] S ource: EHR Director [employer] doris: N Practi ce ID: 0001 Roel lable Time: 11:15:00 AM Emma conrad, [facility] 1 10:29:56 Pregnanc y detectio n examinat ion Completed 201709/23/2021 Encounte r for pregnanc y test, result positive ;Recorde d Elsewher e: No Locat ion: [facility] [address] S ource: [facility]: N Jairti ce ID: 0001 Roel lable Time: 02:15:00 PM Emma conrad, [facility] 1 10:30:18 Finding of regulari ty of menstrua l cycle Completed 201709/23/2021 Irregula r bleeding ;Recorde d Elsewher e: No Locat ion: [facility] [address] S ource: [facility]: N Ab ce ID: 0001 Roel lable Time: 02:15:00 PM Emma conrad, [facility] 1 10:29:18 Cyst of ovary Completed 201709/23/2021 Unspecif ied ovarian cyst, unspecif ied side;Rec orded Elsewher e: No Locat ion: [facility] [address] S ource: [facility]: N Ab ce ID: 0001 Roel lable Time: 11:00:[address] [facility] 1 10:28:44 Syphilis test finding [id number] Completed 201709/23/2021 Encntr screen for infectio ns w sexl mode of transmis s;Record ed Elsewher e: No Locat ion: [facility] [address] S ource: [facility]: N Ab ce ID: 0001 Roel lable Time: 11:00:[address] [facility] 10:31:[address] Concept Completed 201709/23/2021 Encntr for assurance analyst exam (general ) (routine ) w/o abn findings ;Recorde d Elsewher e: No Locat ion: Aliyahbrynn alicia [facility] S ource: [facility] doris: N Jairti ce ID: 0001 Roel lable Time: 11:00:00 AM Emma Cordova [place], [facility] 1 10:31:18 Body mass index 30+ - obesity [id number] Completed 201709/23/2021 Body mass index (BMI) 32.0-32. 9, adult;Re corded Elsewher e: No [facility] S our[facility]: [facility] doris: N Jairti ce ID: 0001 Roel lable Time: 11:00:00 AM Emma conrad, [facility] 10:28:11 Finding of pattern of menstrua l cycle Completed 201709/23/2021 Excessiv e and frequent menstrua tion with irregula r cycle;Re corded Elsewher e: No [facility]at [facility] S ource: [facility] doris: N Jairti ce ID: 0001 Roel lable Time: 01:00:00 PM Emma Cordova [place], [facility] 10:29:16 Mammogra phic calcific ation of breast [id number] Completed 201709/23/2021 Mammogra phic calcifcn found on diagnost ic imaging of breast;R ecorded Elsewher e: No [facility]at [facility] S ource: [facility] doris: N Practi ce ID: 0001 Roel lable Time: 01:00:[address] [facility] 10:30:05 Pain in female genitali a Completed 201709/23/2021 Dysmenor jannette, unspecif ied;Romulo rded Elsewher e: No [facility]at [facility] S ource: EHR Director [employer] doris: N Practi ce ID: 0001 Roel lable Time: 01:00:00 PM Emma conrad, [facility] 1 10:30:13 Depressi ve disorder [id number] Completed 201709/23/2021 Major depressi ve disorder , single episode, unspecif ied;Romulo rded Elsewher e: No Locat ion: [facility] [address] S ource: EHR Director [employer] doris: N Jairti ce ID: 0001 Roel lable Time: 09:00:00 AM Emma Cordova [facility], [facility] 10:28:[address] Concept Completed 201709/23/2021 Anxiety disorder , unspecif ied;Romulo rded Elsewher e: No Locat ion: [facility] [address] S ource: [facility]: N Jairti ce ID: 0001 Roel lable Time: 09:45:00 AM Emma Cordova [facility] 1 10:31:09 Pregnanc y test negative [id number] Completed 201709/23/2021 Encounte r for pregnanc y test, result negative ;Recorde d Elsewher e: No Locat ion: [facility] [address] S ource: [facility]: N Jairti ce ID: 0001 Roel lable Time: 09:45:00 AM Emma conrad, [facility] 1 10:30:36 Blood leukocyt e number above referenc e range [id number] Completed 201709/23/2021 Elevated white blood cell count, unspecif ied;Romulo rded Elsewher e: No Locat ion: [facility] [address] S ource: E[employer] Director [employer] doris: N Practi ce ID: 0001 Roel lable Time: 11:45:[address] [facility] 10:29:54 Pelvic and perineal pain [id number] Completed 201709/23/2021 Pelvic and perineal pain;Rec orded Elsewher e: No Locat ion: Curtis vargas [facility] S ource: EHR Director [employer] doris: N Practi ce ID: 0001 Roel lable Time: 11:15:00 AM Emma Cordova [place], [facility] 1 10:30:16 Dysuria [id number] Completed 201709/23/2021 Dysuria; Recorded Elsewher e: No Locat ion: Curtis vargas [facility] S ource: EHR Director [employer] doris: N Practi ce ID: 0001 Roel lable Time: 11:45:00 AM Emma Cordova [place], [facility] 10:28:56 Exposure to sexually transmis sible disorder Completed 201709/23/2021 Contact w and exposure to infect w a sexl mode of transmis s;Practi ce ID: 0001 Emma conrad, [facility] 10:29:00 Gestatio n less than 9 weeks [id number] Completed 201809/23/2021 Less than 8 weeks gestatio n of pregnanc y;Record ed Elsewher e: No [facility]at [facility]: [facility] S ource: [facility]: N Practi ce ID: 0001 Roel lable Time: 08:15:[address] [facility] 10:29:22 Situatio n with explicit context Completed 201809/23/2021 Suprvsn of preg w poor reprodct v or obstet hx, first tri;Romulo rded Elsewher e: No Locat ion: Curtis vargas [facility] S ource: E[employer] Director [employer] doris: N Practi ce ID: 0001 Roel lable Time: 08:15:00 AM Emma conrad, [facility] 1 10:31:07 Threaten ed miscarri age [id number] Completed 201809/23/2021 Threaten ed ;Recorde d Elsewher e: No Locat ion: Curtis vargas [facility] S ource: EHR Director [employer] doris: N Jairti ce ID: 0001 Roel lable Time: 10:30:[address] [facility] 10:31:38 Blighted ovum [id number] Completed 201809/23/2021 Blighted ovum and nonhydat idiform mole;Rec orded Elsewher e: No Locat ion: Curtis vargas [facility] S ource: [facility]: N Jairti ce ID: 0001 Roel lable Time: 10:30:[address] [facility] 10:28:08 Finding of contents of cervix [id number] Completed 201809/23/2021 Weeks of gestatio n of pregnanc y not specifie d;Record ed Elsewher e: No Locat ion: Edith alicia [facility] S ource: [facility]: N Ab ce ID: 0001 Roel lable Time: 10:30:[address] [facility] 10:29:13 Normal pregnanc y in multigra parisa [id number] Completed 201809/23/2021 Encounte r for suprvsn of normal pregnanc y, second trimeste r;Record ed Elsewher e: No Locat ion: Curtis vargas [facility] S ource: EHR Director [employer] doris: N Jairti ce ID: 0001 Roel lable Time: 05:00:[address] [facility] 1 10:30:11 Antenata l screenin g for malforma tion Completed 201809/23/2021 Encounte r for antenata l screenin g for malforma tions;Re corded Elsewher e: No Locat ion: Aliyahbrynn alicia [facility] S ource: EHR Director [employer] doris: N Jairti ce ID: 0001 Roel lable Time: 10:30:[address] [facility] 1 10:28:06 Gestatio n period, 20 weeks [id number] Completed 201809/23/2021 20 weeks gestatio n of pregnanc y;Record ed Elsewher e: No Locat ion: Curtis vargas [facility] S ource: E[employer] Director [employer] doris: N Practi ce ID: 0001 Roel lable Time: 11:30:00 AM Emma conrad, [facility] 10:29:24 Finding of trunk structur e Completed 201909/23/2021 Oth diseases and conditio ns compl preg/chl dbrth;Re corded Elsewher e: No [facility]at [facility] S ource: EHR Director [employer] doris: N Practi ce ID: 0001 Roel lable Time: 03:15:00 PM Emma conrad, [facility] 10:31:40 Gestatio n period, 29 weeks [id number] Completed 201909/23/2021 29 weeks gestatio n of pregnanc y;Record ed Elsewher e: No Locat ion: [facility] [address] S ource: EHR Director [employer] doris: N Practi ce ID: 0001 Roel lable Time: 03:15:[address] [facility] 10:29:27 Gestatio n period, 30 weeks [id number] Completed 201909/23/2021 30 weeks gestatio n of pregnanc y;Record ed Elsewher e: No Locat ion: [facility] [address] S ource: E[employer] Director [employer] doris: N Practi ce ID: 0001 Roel lable Time: 10:45:00 AM Emma conrad, [facility] 10:29:29 Uterine size for dates discrepa ncy Completed 201909/23/2021 Uterine size-neeta e discrepa ncy, second trimeste r;Record ed Elsewher e: No Locat ion: Aliyahmyriammiryam vargas [facility] S ource: EHR Director [employer] doris: N Practi ce ID: 0001 Roel lable Time: 10:45:00 AM Emma Cordova [place], [facility] 10:31:[address] Concept Completed 201909/23/2021 Decrease d movement s, third trimeste r, unsp;Rec orded Elsewher e: No Locat ion: Aliyahmyriammiryam vargas [facility] S ource: E[employer] Director [employer] doris: N Practi ce ID: 0001 Roel lable Time: 11:30:00 AM Emma Cordova [place], [facility] 10:31:14 Prematur e rupture of membrane s [id number] Completed 201909/23/2021 Evelin ROM, 7th0 betw rupt & onst labr, unsp weeks of gest;Pra ctice ID: 0001 Emma Cordova [place], [facility] 10:30:51 Gestatio n period, 32 weeks [id number] Completed 201909/23/2021 32 weeks gestatio n of pregnanc y;Record ed Elsewher e: No Locat ion: Curtis vargas [facility] S ource: E[employer] doris: N Practi ce ID: 0001 Roel lable Time: 11:00:00 AM Emma conrad, [facility] 10:29:30 Gestatio n period, 33 weeks [id number] Completed 201909/23/2021 33 weeks gestatio n of pregnanc y;Record ed Elsewher e: No Locat ion: Aliyahmyriammiryam vargas [facility] S ource: E[employer] doris: N Practi ce ID: 0001 Roel lable Time: 03:00:00 PM Emma conrad, [facility] 10:29:32 Gestatio n period, 34 weeks [id number] Completed 201909/23/2021 34 weeks gestatio n of pregnanc y;Record ed Elsewher e: No Locat ion: Curtis vargas [facility] S ource: E[employer] Director [employer] doris: N Practi ce ID: 0001 Roel lable Time: 11:00:00 AM Emma Tasha [place], [facility] 10:29:34 False labor before 37 complete d weeks of gestatio n [id number] Completed 201909/23/2021 False labor before 37 complete d weeks of gest, third tri;Prac dante ID: 0001 Emma Cordova [place], [facility] 10:29:08 Gestatio n period, 35 weeks [id number] Completed 201909/23/2021 35 weeks gestatio n of pregnanc y;Record ed Elsewher e: No Locat ion: Curtis vargas [facility] S ource: E[employer] Director [employer] doris: N Practi ce ID: 0001 Roel lable Time: 11:30:00 AM Emma Cordova [place], [facility] 10:29:36 Gestatio nal diabetes mellitus [id number] Completed 201909/23/2021 Gestatio nal diabetes in pregnanc y, insulin controll ed;Recor ded Elsewher e: No Locat ion: [facility] [address] S ource: EHR Director [employer] doris: N Practi ce ID: 0001 Roel lable Time: 10:30:00 AM Emma Cordova [place], [facility] 10:29:52 Gestatio n period, 36 weeks [id number] Completed 201909/23/2021 36 weeks gestatio n of pregnanc y;Practi ce ID: 0001 Emma cornad, [facility] 10:29:38 Pregnanc y-induce d hyperten bo Completed 201909/23/2021 Gestatio nal htn w/o signific ant proteinu anais, third trimeste r;Practi ce ID: 0001 Emma conrad, [facility] 10:30:49 Gestatio n period, 37 weeks [id number] Completed 201909/23/2021 37 weeks gestatio n of pregnanc y;Record ed Elsewher e: No Locat ion: Curtis vargas [facility] S ource: EHR Director [employer] doris: N Practi ce ID: 0001 Roel lable Time: 10:30:00 AM Emma conrad, [facility] 10:29:40 False labor at or after 37 complete d weeks of gestatio n [id number] Completed 201909/23/2021 False labor at or after 37 complete d weeks of gestatio n;Practi ce ID: 0001 Emma conrad, [facility] 10:29:06 Gestatio n period, 38 weeks [id number] Completed 201909/23/2021 38 weeks gestatio n of pregnanc y;Record ed Elsewher e: No Locat ion: Curtis vargas [facility] S ource: EHR Director [employer] doris: N Practi ce ID: 0001 Roel lable Time: 10:30:00 AM Emma conrad, [facility] 10:29:41 Term pregnanc y delivere d [id number] Completed 201909/23/2021 Encounte r for full-ter m uncompli cated delivery ;Practic e ID: 0001 Emma conrad, [facility] 10:31:36 Single live from singleto n pregnanc y [id number] Completed 201909/23/2021 Single live ;Pr actice ID: 0001 Emma conrad, [facility] 10:31:03 Gestatio n period, 39 weeks [id number] Completed 201909/23/2021 39 weeks gestatio n of pregnanc y;Practi ce ID: 0001 Emma Cordova null, [facility] 10:29:43 Past pregnanc y history of gestatio nal diabetes mellitus [id number] Active 2022 Tiffanie Flores MD [address], [place], [address], [facility] 19:36:59 Pregnanc y [id number] Completed 202208/16/2023 [facility], [facility] 14:52:19 Gestatio nal diabetes mellitus [id number] Completed 2022 h/o gdm2A. Checking BS QID, serial growth, antenata l testing [facility] 14:52:11 Problem Notes None recorded. Procedures Surgical History Date Name Laterality Status Provider Name and Address Organization Details Recorded Time 06/07/20 25 Dilation and Curettage completed Emily Millard [facility] 06/18/2025 14:42:30 02/14/20 25 Date of Last Pap Smear completed Tiffanie Boothe [facility] 06/01/2025 12:11:46 08/30/20 24 IUD Removal completed Maria T Carlton CNM [address], [place], [address], [facility] 08/31/2024 13:59:56 08/04/20 24 IUD Insertion completed Maria T Carlton CNM [address], [place], [address], [facility] 08/05/2024 08:44:48 07/29/20 22 Hysteroscopy completed Maria T Carlton CNM [address], [place], [address], [facility] 07/29/2022 08:52:41 07/29/20 22 [address]steroscopy [address] Emma Cordova [facility] 07/29/2022 08:35:27 07/21/20 22 [facility] 12:21:30 04/17/20 20 [facility]2020 12:09:21 03/20/20 20 [facility] 03/20/2020 12:11:51 11/22/19 18 Appendectomy completed [facility] 10/01/2020 19:16:40 11/22/19 [address] [facility] 10/08/2021 16:13:03 11/22/19 14 colonoscopy completed [facility] 09/23/2021 10:34:09 11/22/19 13 D[facility] 09/23/[facility]21 10:34:16 11/22/19 00 tonsillectomy completed [facility] 09/23/2021 10:34:23 Imaging Results None recorded. Procedure Notes None recorded. Medical Equipment None Reported. Allergies Allergen ID Allergen Name Allergen Category Reaction Reaction Severity Criticality Documentation Date Start Date Code Code System Note Provider Name and Address Organization Details Recorded Time prednison e medicatio n Not available Not available Not available 01/05/[address] [facility] 3 10:49:28 2666 amoxicill in medicatio n Not available Not available Not available 10/01/2020 [address] [facility] 1 10:27:49 90837 aluminum aspirin Not available Not available Not available Not available 10/08/20252020 611 RxNorm pradeep ross ed react ion (text : Other , code: 22634 07) (from [facility]) Not Available [place] - External Data Service - prod 5 09:39:58 91 aspirin medicatio n Not available Not available Not available 03/04/2020 1191 RxNorm Caterina Aquino [facility], [facility] 0 17:51:36 Medications Name Sig [...] [facility] [address] M odify By: [email or web address] correa DateTime : [...] Elsewher e: No Locat ion: Curtis vargas [facility] odify By: raul z Encoun ter [...] ed Elsewher e: No [facility] By: annalisa turner DateTime : [...] e: No Locat ion: [facility] odify By: senait palomo DateTime : 07/21/20 18 04:08:38 PM Not Available Not Available Not Available dicyclomi ne 20 mg tablet 10/01 completed Not Available Not Available Not Available betametha sone valerate 0.1 % topical cream apply by topical route every day a thin layer to the affected area(s) 02/01 completed Prescrib ed Elsewher e: No Locat ion: [facility] odify By: [email or web address] z Encoun [...] e: No Locat ion: [facility] odify By: annalisa turner DateTime [...] e: No Locat ion: [facility] odify By: jill palomo DateTime [...] e: No Locat ion: [facility] odify By: raul correa DateTime : 09/02/20 15 09:21:34 AM Not Available Not Available Not Available norethind jatinder (contrace ptive) 0.35 mg tablet TAKE 1 TABLET BY MOUTH EVERY DAY 02/13 completed Not Available Not Available Not Available Zoloft 25 mg tablet take 1 tablet by oral route every day 03/29 completed Prescrib ed Elsewher e: No Locat ion: [facility]am vargas [facility] odify By: [email or web address] z Encoun ter [...] Prescrib ed Elsewher e: No [facility] By: annalisa turner DateTime [...] e: No Locat ion: [facility] odify By: senait palomo DateTime [...] e: No Locat ion: [facility] odify By: lexi correa DateTime [...] e: No Locat ion: [facility] odify By: [email or web address] Barroso r DateTime : 05/28/20 11:15:00 AM Not Available Not Available Not Available Humulin N NPH U-100 Insulin KwikPen 100 unit/mL (3 mL) subcutane ous 09/03 completed Not Available Not Available Not Available Fora D73-D67-I 10-D20 strips-la ncets 30 gauge combo pack checking BS QID fasting and 1hr pp 07/21 completed Prescrib ed Elsewher e: No Locat ion: [facility] odify By: [email or web address] Barroso r DateTime : [...] Junie e: No Locat ion: Curtis vargas [facility] M odify By: annalisa turner DateTime [...] Updated DateTime 10/29/2025 157.48 cm 33.7 kg/m2 95742 g 124/80 mm[Hg] Xochilt Tubbs [facility] 10/29/2025 11:25:23 Social History Question Answer Notes LastModified by Organizat ion Details LastModified Time Tobacco Smoking Status Former Smoker Emma conrad, [facility] 10/01/2020 15:14:21 If You Are , What Was Your Level Of Alcohol Consumption Prior To ? Occasional Information not available 02/01/2023 Are You Blind Or Do You Have Difficulty Seeing? No [email or web address] Information not available 09/23/2021 What Is Your Level Of Caffeine Consumption? Occasional [email or web address] Information not available 10/29/2025 In The 14 Days Before Symptom Onset, Have You Had Close Contact With A Laboratory-confir med COVID-19 While That Case Was Ill? No [email or web address] Information not available 02/01/2023 In The 14 Days Before Symptom Onset, Have You Had Close Contact With A Person Who Is Under Investigation For COVID-19 While That Person Was Ill? No [email or web address] Information not available 02/01/2023 Have You Been To An Area Known To Be High Risk For COVID-19? No Information not available 02/01/2023 Are You Deaf Or Do You Have Serious Difficulty Hearing? No [email or web address] Information not available 09/23/2021 What Type Of Diet Are You Following? REGULAR [email or web address] Information not available 09/23/2021 What Is The Highest Grade Or Level Of School You Have Completed Or The Highest Degree You Have Received? FW88896-3 [email or web address] Information not available 10/29/2025 What Was The Date Of Your Most Recent Tobacco Screening? 08/30/2024 [email or web address] Information not available 08/30/2024 Do You Use Protection During Sex? No [email or web address] Information not available 10/29/2025 Do You Use Your Seat Belt Or Car Seat Routinely? Yes [email or web address] Information not available 02/01/2023 Are You Sexually Active? Yes Information not available 10/29/2025 Do You Have Smoke And Carbon Monoxide Detectors In Your Home? Yes [email or web address] Information not available 02/01/2023 How Much Tobacco Do You Smoke? No [email or web address] Information not available 05/21/2020 Do You Use Sunscreen Routinely? Yes [email or web address] Information not available 02/01/2023 Has Tobacco Cessation Counseling Been Provided? No [email or web address] Information not available 02/01/2023 Do You Have Difficulty Walking Or Climbing Stairs? No [email or web address] Information not available 07/21/2022 Sex: Unknown Functional Status Question Answer Note LastModified by [email or web address] ion Details LastModified Time Do you use any illicit or recreational drugs? No [email or web address] Information not available 02/01/2023 Do you or have you ever used any other forms of tobacco or nicotine? No [email or web address] Information not available 02/01/2023 What is your level of alcohol consumption? None Information not available 02/01/2023 Do you or have you ever used smokeless tobacco? Never used smokeless tobacco [email or web address] Information not available 05/21/2020 Are you currently employed? No [email or web address] Information not available 10/29/2025 Are you able to walk independently without assistance or assistive devices? YESWOREST [email or web address] Information not available 09/23/2021 Are you able to care for yourself independently? Yes [email or web address] Information not available 07/21/2022 Do you have difficulty dressing, bathing, grooming, or toileting? No Information not available 07/21/2022 Do you or have you ever used e-cigarettes or vape? Never used electronic cigarettes [email or web address] Information not available 05/21/2020 What is your exercise level? Occasional walking [email or web address] Information not available 03/05/2020 Mental Status Question Answer Note LastModified by Organization D etails LastModified Time Do you feel stressed (tense, restless, nervous, or anxious, or unable to sleep at night)? [id number] [email or web address] Information not available 02/01/2023 Family History Relationship [...] ICD10 Code Diagnosis IMO Codes Diagnosis Note [id number] Venkat Valdez MD [facility] [address] [address] 10/08/2025 10:54:40 10/08/2025 11:44:42 Threatened miscarriage 10123525 O20.0 Z3A.01 41911 [id number] CLAUDETTE SINGH MD [facility] [address],[place] [address] 10/15/2025 13:26:38 10/15/2025 13:50:58 Complication occurring during [id number] O99.891 Z3A.01 [id number] Venkat Valdez MD [facility] [address],[place] [address] 10/15/2025 13:27:10 10/15/2025 14:59:28 Acute urinary tract infection [id number] N39.0 [id number] Gestationa l diabetes mellitus [id number] O24.410 [id number] this patient is a 30-year-ol d female [...] 20 minutes on her care in total. [id number] CLAUDETTE SINGH MD [facility] [address],[place] [address] 10/29/2025 10:23:11 10/29/2025 11:05:20 [id number] [facility] [address],[place] [address] 10/29/2025 10:58:16 10/29/2025 13:36:47 Amenorrhea [id number] N91.2 06213 take pnv daily, pap up to datediscus sed with dr. valdez start 4 units [facility] at [facility] have rn call next week for blood sugars, glucose log [id number] /11/25ok for excedrin migrainef/ u 3 weeks new ob and first look Health Concerns Section Related Observation LastModified by Organization Detai ls LastModified Time None Recorded Concern Status LastModified by Organization Details LastModified Time None Recorded Payers Encounter Date Sequence Insurance Name Policy Number Policy Horne Covered Member ID Horne Member ID Guarantor Name 10/29/2025 1 [employer] [id number] Buddy Yusuf [id number] Mariel Romliz Notes Date Note Type Note Provider Name a nd Address Organization Details Recorded Time 10/29/2025 text/html ROS as noted in the HPI hx recent miscarriage, now amenorrhea, US todayhx gdm, quiroz started checking blood sugars, all fastings elevated Maria T Carlton, [facility] [address], [place], [address], [facility] 10/29/2025 13:29:56 OBGyn Episode No OBEpisode recorded.
--- OUTSIDE RECORDS SUMMARY | 2025-11-07 18:50 | XMS_ITS | Continuity of Care Document ---
Author Organization [facility] Address [address] [place] [address] Care Team Providers Care Agricultural Researcher Name Role Phone CHASITYVALENTE ZHOU Primary Care Provider Assessment No assessment recorded. [...] h Ultra Test strips 2024 025 [facility]Pharmacy #[id number], [address] [place], [address], 10/15/2025 14:52:18 Macrobi d 100 mg capsule 2024 025 [facility]Pharmacy #[id number], [address] [place], [address], 10/29/2025 11:25:47 Patient TargetsNo targets recorded. Patient [...] Resul ting Lab: [facility] [address] [facility] [address] Tel: CULTU RE ----- ----- ----- --- Cultu re resul t (>=3 organ isms prese nt) indic ates possi ble conta minat ion. Repea t cultu re if sympt oms indic ate. Not Available [facility] (Lab) [address], [place], [address], 10/10/2025 08:41:21 10/08/20 25 10/08/2025 US, obste tric, trans vagin al No observ ation record ed. [email or web address] [place] [address], [place], [address], 10/08/2025 15:50:26 10/08/20 25 10/08/2025 US, obste tric, trans vagin al No observ ation record ed. [email or web address] [address] [address] [place] [address], [address], 10/08/2025 20:28:04 10/15/20 25 10/15/2025 US, obste tric, trans vagin al No observ ation record ed. [email or web address] [place] [address], [place], [address], 10/15/2025 14:43:23 10/15/20 25 10/15/2025 US, obste tric, trans vagin al No observ ation record ed. [email or web address] N[place] [address], [place], [address], 10/15/2025 15:11:39 10/29/20 25 10/29/2025 US, obste tric, 1st trime ster No observ ation record ed. [email or web address] N[place] [address], [place], [address], 10/29/2025 17:12:57 Result Notes None recorded. Problems Name Problem SNOMED Code Status Onset Date Resolution Date Notes Provider Name and Address Organization Details Recorded Time Gestatio nal diabetes mellitus class A2 32809448 Completed 5u NPH AM, 5u Lispro Lunch, 15u NPH @ [facility] - [facility] 03/31 [facility] Elena Weber [facility] 3 14:52:11 Cholesta sis [id number] Completed 07/07 - Per Scarlett with M - she spoke with Dr. Dangelo and to cont ursodiol and anticipa te/assum e cholesta sis based on presenta tion. Rpt labs next week before M appt on 07/21. Might recommen d 37-38wk del José Weber [facility] 3 14:52:12 Amenorrh ea [id number] Completed 201409/23/2021 AMENORRH EA;Pract ice ID: [address] [facility] 1 10:28:02 Speciali zed medical examinat ion Completed 201409/23/2021 Routine gynecolo gical examinat ion;Prac dante ID: 0001 Emma Cordova [facility], [facility] 1 10:31:25 Pregnanc y test positive [id number] Completed 201409/23/2021 Positive Pregnanc y Test;Pra ctice ID: [address] [facility] 1 10:30:38 Uterine size for dates discrepa ncy [id number] Completed 201409/23/2021 UTERINE SIZE MEG-ANTE PAR;Prac dante ID: 0001 Emma conrad, [facility] 10:31:47 Mild hypereme sis-not delivere d [id number] Completed 201409/23/2021 Hypereme sis gravidar um, antepart um Mild;Pra ctice ID: 0001 Emma conrad, [facility] 10:30:08 Nausea and vomiting [id number] Completed 201409/23/2021 Nausea with vomiting ;Practic e ID: 0001 Emma conrad, [facility] 10:30:09 Syncope and collapse [id number] Completed 201409/23/2021 Syncope and collapse ;Practic e ID: 0001 Emma conrad, [facility] 10:31:31 Antenata l screenin g Completed 201409/23/2021 ANTENATA L SCREENIN G NEC;Prac dante ID: 0001 Emma Cordova [facility], [facility] 10:28:04 Primigra parisa [id number] Completed 201409/23/2021 Supervis ion of normal first pregnanc y;Practi ce ID: [address] [facility] 10:30:56 anatomy study Completed 201409/23/2021 [facility] SURVEY;Susana timmons ID: 0001 Emma Cordova [facility], [facility] 10:29:10 Complica tion of pregnanc y, childbir th and/or puerperi um [id number] Completed 201409/23/2021 OTH CURR COND-ANT EPARTUM; Practice ID: 0001 Emma conrad, [facility] 10:28:17 Pregnanc y, childbir th and puerperi um finding Completed 201409/23/2021 Encntr for suprvsn of normal first preg, third trimeste r;Practi ce ID: 0001 Emma Tasha conrad, [facility] 1 10:30:41 Urinary tract infectio us disease [id number] Completed 201409/23/2021 Urinary tract infectio n, site not specifie d;Practi ce ID: 0001 Emma Cordova [place], [facility] 10:31:42 Eruption [id number] Completed 201409/23/2021 Rash;Rec orded Elsewher e: No Locat ion: [facility] S ource: [employer] Records Clerk doris: N Practi ce ID: 0001 Roel lable Time: 03:30:00 PM Emma conrad, [facility] 1 10:28:58 Pregnanc y, childbir th and puerperi um finding Completed 201409/23/2021 Oth pregnanc y related conditio ns, third trimeste r;Practi ce ID: 0001 Emma Cordova [place], [facility] 10:28:13 Noninfec tious enteriti s of intestin e Completed 201409/23/2021 Gastroen teritis; Recorded Elsewher e: No [facility] S ource: [employer] Records Clerk doris: N Practi ce ID: 0001 Roel lable Time: 02:30:00 PM Emma conrad, [facility] 1 10:30:00 prematur e rupture of membrane s [id number] Completed 201409/23/2021 Pretrm evelin ROM, unsp time betw rupt and onst labr, 3rd tri;Prac dante ID: 0001 Emma conrad, [facility] 1 10:30:54 Lochia finding Completed 201509/23/2021 Encounte r for routine postpart um follow-u p;Record ed Elsewher e: No Locat ion: Curtis vargas [facility] S ource: [employer] Records Clerk doris: N Jairti ce ID: 0001 Roel lable Time: 01:00:00 PM Emma conrad [facility] 1 10:30:[address] Concept Completed 201509/23/2021 Encounte r for surveill ance of other contrace ptives;R ecorded Elsewher e: No Locat ion: Curtis vargas [facility] S ource: [employer] Records Clerk doris: N Jairti ce ID: 0001 Roel lable Time: 01:00:00 PM Emma conrad [facility] 1 10:31:20 Sexually transmit car infectio us disease [id number] Completed 201509/23/2021 STD;Romulo rded Elsewher e: No Locat ion: Curtis vargas [facility] S ource: [employer] Records Clerk doris: N Jairti ce ID: 0001 Roel lable Time: 10:30:00 AM Emma conrad [facility] 1 10:31:01 Uses combined oral contrace ption [id number] Completed 201609/23/2021 Encounte r for initial prescrip tion of contrace ptive pills;Re corded Elsewher e: No Locat ion: Curtis vargas [facility] S ource: [employer] Records Clerk doris: N Ab ce ID: 0001 Roel lable Time: 08:30:00 AM Emma conrad [facility] 1 10:28:15 Procedur e Completed 201609/23/2021 Encounte r for checking , reinsert ion or removal of implanta ble subderma l contrace ptive;Re corded Elsewher e: No Locat ion: Aliyahbrynn theodore [facility] S ource: [employer] Clerk doris: N Jairti ce ID: 0001 Roel lable Time: 08:30:00 AM Emma Cordova [place], [facility] 1 10:30:58 Infectio n screenin g Completed 201609/23/2021 Encounte r for screenin g for oth infec/pa rastc diseases ;Recorde d Elsewher e: No Locat ion: [facility] S ource: [employer] Records Clerk doris: N Practi ce ID: 0001 Roel lable Time: 11:00:00 AM Emma Cordova [facility], [facility] 1 10:29:58 Acute vaginiti s [id number] Completed 201609/23/2021 Acute vaginiti s;Record ed Elsewher e: No Locat ion: [facility] S ource: [employer] Records Clerk doris: N Practi ce ID: 0001 Roel lable Time: 11:00:00 AM Emma Cordova [facility], [facility] 10:28:00 Vaginola bial hernia Completed 201609/23/2021 Other specifie d noninfla mmatory disorder s of vagina;R ecorded Elsewher e: No Locat ion: [facility] S ource: [employer] Records Clerk doris: N Practi ce ID: 0001 Roel lable Time: 11:00:00 AM Emma Cordova [place], [facility] 10:31:49 Counseli ng for harmful pattern of substanc e use Completed 201609/23/2021 Tobacco abuse counseli ng;Recor ded Elsewher e: No Locat ion: [facility] S ource: [employer] Clerk doris: N Practi ce ID: 0001 Roel lable Time: 11:00:00 AM Emma Brittontz [facility], [facility] 10:31:[address] Concept Completed 201609/23/2021 Encntr for general adult medical exam w/o abnormal findings ;Recorde d Elsewher e: No [facility] [employer] Records Clerk doris: N Jairti ce ID: 0001 Roel lable Time: 11:00:00 AM Emma Tasha conrad [facility] 1 10:31:16 Increase d frequenc y of urinatio n [id number] Completed 201609/23/2021 Frequenc y of micturit ion;Romulo rded Elsewher e: No Locat ion: [facility] N Jairti ce ID: 0001 Roel lable Time: 11:15:00 AM Emma Tasha [place], [facility] 1 10:29:56 Pregnanc y detectio n examinat ion Completed 201709/23/2021 Encounte r for pregnanc y test, result positive ;Recorde d Elsewher e: No Locat ion: [facility]: N Jairti ce ID: 0001 Roel lable Time: 02:15:00 PM Emma Cordova [place] [facility] 1 10:30:18 Finding of regulari ty of menstrua l cycle Completed 201709/23/2021 Irregula r bleeding ;Recorde d Elsewher e: No Locat ion: [facility]: N Jairti ce ID: 0001 Roel lable Time: 02:15:00 PM Emma conrad [facility] 1 10:29:18 Cyst of ovary Completed 201709/23/2021 Unspecif ied ovarian cyst, unspecif ied side;Rec orded Elsewher e: No Locat ion: [facility]: N Jairti ce ID: 0001 Roel lable Time: 11:00:00 AM Emma conrad [facility] 1 10:28:44 Syphilis test finding [id number] Completed 201709/23/2021 Encntr screen for infectio ns w sexl mode of transmis s;Record ed Elsewher e: No [facility] [employer] Clerk doris: N Ab ce ID: 0001 Roel lable Time: 11:00:00 AM Emma conrad, [facility] 10:31:[address] Concept Completed 201709/23/2021 Encntr for bat person exam (general ) (routine ) w/o abn findings ;Recorde d Elsewher e: No [facility]: [employer] Records Clerk doris: N Jairti ce ID: 0001 Roel lable Time: 11:00:00 AM Emma conrad, [facility] 10:31:18 Body mass index 30+ - obesity [id number] Completed 201709/23/2021 Body mass index (BMI) 32.0-32. 9, adult;Re corded Elsewher e: No [facility]at [facility]: [employer] Clerk doris: N Ab ce ID: 0001 Roel lable Time: 11:00:00 AM Emma conrad, [facility] 10:28:11 Finding of pattern of menstrua l cycle Completed 201709/23/2021 Excessiv e and frequent menstrua tion with irregula r cycle;Re corded Elsewher e: No Locat ion: [facility] S ource: [employer] Clerk doris: N Ab ce ID: 0001 Roel lable Time: 01:00:00 PM Emma conrad [facility] 10:29:16 Mammogra phic calcific ation of breast [id number] Completed 201709/23/2021 Mammogra phic calcifcn found on diagnost ic imaging of breast;R ecorded Elsewher e: No [facility] [employer] Clerk doris: N Jairti ce ID: 0001 Roel lable Time: 01:00:00 PM Emma Brittontz [place], [facility] 1 10:30:05 Pain in female genitali a Completed 201709/23/2021 Dysmenor jannette, unspecif ied;Romulo rded Elsewher e: No Locat ion: Curtis vargas [facility] S ource: [employer] Records Clerk doris: N Jairti ce ID: 0001 Roel lable Time: 01:00:00 PM Emma Cordova [place], [facility] 1 10:30:13 Depressi ve disorder [id number] Completed 201709/23/2021 Major depressi ve disorder , single episode, unspecif ied;Romulo rded Elsewher e: No [facility] S [facility]: N Jairrodney ce ID: 0001 Roel lable Time: 09:00:00 AM Emma Cordova [place], [facility] 1 10:28:[address] Concept Completed 201709/23/2021 Anxiety disorder , unspecif ied;Romulo rded Elsewher e: No Locat ion: [facility] S [facility]: N Jairrodney ce ID: 0001 Roel lable Time: 09:45:00 AM Emma Cordova [place], [facility] 1 10:31:09 Pregnanc y test negative [id number] Completed 201709/23/2021 Encounte r for pregnanc y test, result negative ;Recorde d Elsewher e: No Locat ion: [facility] S ource: [employer] Clerk doris: N Jairti ce ID: 0001 Roel lable Time: 09:45:00 AM Emma Cordova [place] [facility] 1 10:30:36 Blood leukocyt e number above referenc e range [id number] Completed 201709/23/2021 Elevated white blood cell count, unspecif ied;Romulo rded Elsewher e: No [facility]: [employer] Records Clerk doris: N Practi ce ID: 0001 Roel lable Time: 11:45:00 AM Emma conrad [facility] 10:29:54 Pelvic and perineal pain [id number] Completed 201709/23/2021 Pelvic and perineal pain;Rec orded Elsewher e: No Locat ion: [facility] S ource: [employer] Clerk doris: N Practi ce ID: 0001 Roel lable Time: 11:15:00 AM Emma conrad [facility] 10:30:16 Dysuria [id number] Completed 201709/23/2021 Dysuria; Recorded Elsewher e: No [facility]: [employer] Records Clerk doris: N Practi ce ID: 0001 Roel lable Time: 11:45:00 AM Emma conrad [facility] 10:28:56 Exposure to sexually transmis sible disorder Completed 201709/23/2021 Contact w and exposure to infect w a sexl mode of transmis s;Practi ce ID: 0001 Emma conrad [facility] 10:29:00 Gestatio n less than 9 weeks [id number] Completed 201809/23/2021 Less than 8 weeks gestatio n of pregnanc y;Record ed Elsewher e: No Locat ion: [facility] S ource: [employer] Records Clerk doris: N Practi ce ID: 0001 Roel lable Time: 08:15:00 AM Emma conrad [facility] 10:29:22 Situatio n with explicit context Completed 201809/23/2021 Suprvsn of preg w poor reprodct v or obstet hx, first tri;Romulo rded Elsewher e: No Locat ion: Aliyahbrynn theodore [facility] S ource: [employer] Records Clerk doris: N Practi ce ID: 0001 Roel lable Time: 08:15:00 AM Emma conrad, [facility] 1 10:31:07 Threaten ed miscarri age [id number] Completed 201809/23/2021 Threaten ed ;Recorde d Elsewher e: No [facility]: N Practi ce ID: 0001 Roel lable Time: 10:30:00 AM Emma conrad [facility] 10:31:38 Blighted ovum [id number] Completed 201809/23/2021 Blighted ovum and nonhydat idiform mole;Rec orded Elsewher e: No [facility]: N Practi ce ID: 0001 Roel lable Time: 10:30:00 AM Emma conrad [facility] 10:28:08 Finding of contents of cervix [id number] Completed 201809/23/2021 Weeks of gestatio n of pregnanc y not specifie d;Record ed Elsewher e: No [facility] [employer] Clerk doris: N Practi ce ID: 0001 Roel lable Time: 10:30:00 AM Emma conrad [facility] 1 10:29:13 Normal pregnanc y in multigra parisa [id number] Completed 201809/23/2021 Encounte r for suprvsn of normal pregnanc y, second trimeste r;Record ed Elsewher e: No Locat ion: Aliyahbrynn theodore [facility] S ource: [employer] Records Clerk doris: N Practi ce ID: 0001 Roel lable Time: 05:00:00 PM Emma conrad [facility] 1 10:30:11 Antenata l screenin g for malforma tion Completed 201809/23/2021 Encounte r for antenata l screenin g for malforma tions;Re corded Elsewher e: No [facility] S ource: [employer] Records Clerk doris: N Ab ce ID: 0001 Roel lable Time: 10:30:00 AM Emma conrad, [facility] 1 10:28:06 Gestatio n period, 20 weeks [id number] Completed 201809/23/2021 20 weeks gestatio n of pregnanc y;Record ed Elsewher e: No Locat ion: [facility] S ource: [employer] Records Clerk doris: N Ab ce ID: 0001 Roel lable Time: 11:30:00 AM Emma conrad, [facility] 1 10:29:24 Finding of trunk structur e Completed 201909/23/2021 Oth diseases and conditio ns compl preg/chl dbrth;Re corded Elsewher e: No Locat ion: [facility] S ource: [employer] Records Clerk doris: N Jairti ce ID: 0001 Roel lable Time: 03:15:00 PM Emma conrad [facility] 1 10:31:40 Gestatio n period, 29 weeks [id number] Completed 201909/23/2021 29 weeks gestatio n of pregnanc y;Record ed Elsewher e: No Locat ion: [facility] S ource: [employer] Clerk doris: N Jairti ce ID: 0001 Roel lable Time: 03:15:00 PM Emma conrad [facility] 1 10:29:27 Gestatio n period, 30 weeks [id number] Completed 201909/23/2021 30 weeks gestatio n of pregnanc y;Record ed Elsewher e: No Locat ion: Curtis vargas [facility] S ource: [employer] Records Clerk doris: N Practi ce ID: 0001 Roel lable Time: 10:45:00 AM Emma conrad, [facility] 10:29:29 Uterine size for dates discrepa ncy Completed 201909/23/2021 Uterine size-neeta e discrepa ncy, second trimeste r;Record ed Elsewher e: No Locat ion: Curtis vargas [facility] S ource: [employer] Records Clerk doris: N Practi ce ID: 0001 Roel lable Time: 10:45:00 AM Emma conrad, [facility] 10:31:[address] Concept Completed 201909/23/2021 Decrease d movement s, third trimeste r, unsp;Rec orded Elsewher e: No Locat ion: Curtis vargas [facility] S ource: [employer] Records Clerk doris: N Practi ce ID: 0001 Roel lable Time: 11:30:00 AM Emma conrad, [facility] 10:31:14 Prematur e rupture of membrane s [id number] Completed 201909/23/2021 Evelin ROM, 7th0 betw rupt & onst labr, unsp weeks of gest;Pra ctice ID: 0001 Emma conrad, [facility] 10:30:51 Gestatio n period, 32 weeks [id number] Completed 201909/23/2021 32 weeks gestatio n of pregnanc y;Record ed Elsewher e: No Locat ion: [facility] S ource: [employer] Records Clerk doris: N Practi ce ID: 0001 Roel lable Time: 11:00:00 AM Emma conrad, [facility] 10:29:30 Gestatio n period, 33 weeks [id number] Completed 201909/23/2021 33 weeks gestatio n of pregnanc y;Record ed Elsewher e: No Locat ion: Curtis vargas [facility] S ource: [employer] Records Clerk doris: N Practi ce ID: 0001 Roel lable Time: 03:00:00 PM Emma conrad, [facility] 10:29:32 Gestatio n period, 34 weeks [id number] Completed 201909/23/2021 34 weeks gestatio n of pregnanc y;Record ed Elsewher e: No [facility] S ource: [employer] Records Clerk doris: N Practi ce ID: 0001 Roel lable Time: 11:00:00 AM Emma conrad, [facility] 10:29:34 False labor before 37 complete d weeks of gestatio n [id number] Completed 201909/23/2021 False labor before 37 complete d weeks of gest, third tri;Prac dante ID: 0001 Emma conrad, [facility] 10:29:08 Gestatio n period, 35 weeks [id number] Completed 201909/23/2021 35 weeks gestatio n of pregnanc y;Record ed Elsewher e: No Locat ion: [facility] S ource: [employer] Records Clerk doris: N Practi ce ID: 0001 Roel lable Time: 11:30:00 AM Emma conrad, [facility] 10:29:36 Gestatio nal diabetes mellitus [id number] Completed 201909/23/2021 Gestatio nal diabetes in pregnanc y, insulin controll ed;Recor ded Elsewher e: No Locat ion: Curtis vargas [facility] S ource: [employer] Records Clerk doris: N Practi ce ID: 0001 Roel lable Time: 10:30:00 AM Emma conrad [facility] 10:29:52 Gestatio n period, 36 weeks [id number] Completed 201909/23/2021 36 weeks gestatio n of pregnanc y;Practi ce ID: 0001 Emma Cordova [place], [facility] 10:29:38 Pregnanc y-induce d hyperten bo Completed 201909/23/2021 Gestatio nal htn w/o signific ant proteinu anais, third trimeste r;Practi ce ID: 0001 Emma Cordova [place], [facility] 10:30:49 Gestatio n period, 37 weeks [id number] Completed 201909/23/2021 37 weeks gestatio n of pregnanc y;Record ed Elsewher e: No Locat ion: Curtis vargas [facility] S ource: [employer] Records Clerk doris: N Practi ce ID: 0001 Roel lable Time: 10:30:00 AM Emma Cordova [place], [facility] 10:29:40 False labor at or after 37 complete d weeks of gestatio n [id number] Completed 201909/23/2021 False labor at or after 37 complete d weeks of gestatio n;Practi ce ID: 0001 Emma conrad, [facility] 10:29:06 Gestatio n period, 38 weeks [id number] Completed 201909/23/2021 38 weeks gestatio n of pregnanc y;Record ed Elsewher e: No Locat ion: Curtis vargas [facility] S ource: [employer] Records Clerk doris: N Practi ce ID: 0001 Roel lable Time: 10:30:00 AM Emma conrad [facility] 10:29:41 Term pregnanc y delivere d [id number] Completed 201909/23/2021 Encounte r for full-ter m uncompli cated delivery ;Practic e ID: 0001 Emma conrad, [facility] 10:31:36 Single live from singleto n pregnanc y [id number] Completed 201909/23/2021 Single live ;Pr actice ID: 0001 Emma conrad, [facility] 10:31:03 Gestatio n period, 39 weeks [id number] Completed 201909/23/2021 39 weeks gestatio n of pregnanc y;Practi ce ID: 0001 Emma conrad, [facility] 10:29:43 Past pregnanc y history of gestatio nal diabetes mellitus [id number] Active 2022 Tiffanie Flores MD [address], [place], [address], [facility] 3 19:36:59 Pregnanc y [id number] Completed 202208/16/2023 [facility] 14:52:19 Gestatio nal diabetes mellitus [id number] Completed 2022 h/o gdm2A. Checking BS QID, serial growth, antenata l testing [facility] Weber [facility] 14:52:11 Problem Notes None recorded. Procedures Surgical History Date Name Laterality Status Provider Name and Address Organization Details Recorded Time 06/07/20 Dilation and Curettage completed Emily Millard [facility] 06/18/2025 14:42:30 02/14/20 Date of Last Pap Smear completed Tiffanie Boothe [facility] 06/01/2025 12:11:46 08/30/20 IUD Removal completed Maria T Carlton CNM [address], [place], [address], [facility] 08/31/2024 13:59:56 08/04/20 24 IUD Insertion completed Maria T Carlton CNM [address], [place], [address], [facility] 08/05/2024 08:44:48 07/29/20 22 Hysteroscopy completed Maria T Carlton CNM [address], [place], [address], [facility] 07/29/2022 08:52:41 07/29/20 22 [facility] 07/29/2022 08:35:27 07/21/20 22 IUD Removal completed [facility] 07/21/2022 12:21:30 04/17/20 20 IUD Insertion completed [facility] 04/17/2020 12:09:21 03/20/20 20 IUD Insertion completed Swetha [facility] 03/20/2020 12:11:51 11/22/19 18 Appendectomy completed Emma [facility] 10/01/2020 19:16:40 11/22/19 14 completed Kayla Fournier [facility] 10/08/2021 16:13:03 11/22/19 14 colonoscopy completed Emmapat Cordova [facility] 09/23/2021 10:34:09 11/22/19 13 [facility] 09/23/2021 10:34:16 11/22/19 00 [facility] 09/23/2021 10:34:23 Imaging Results None recorded. Procedure Notes None recorded. Medical Equipment None Reported. Allergies Allergen ID Allergen Name Allergen Category Reaction Reaction Severity Criticality Documentation Date Start Date Code Code System Note Provider Name and Address Organization Details Recorded Time prednison e medicatio n Not available Not available Not available 01/05/2023 8640 RxNorm Emma conrad, [facility] 3 10:49:28 2666 amoxicill in medicatio n Not available Not available Not available 10/01/2020 723 RxNorm Emma conrad, [facility] 1 10:27:49 01836 aluminum aspirin Not available Not available Not available Not available 10/08/20252020 611 RxNorm unrec ogniz ed react ion (text : Other , code: 21546 07) (from [facility]) Not Available [employer] - External Data Service - prod 5 09:39:58 91 aspirin medicatio n Not available Not available Not available 03/04/2020 1191 RxNorm Caterina Miles [facility], [facility] 0 17:51:36 [...] AREA TWICE DAILY FOR 7 DAYS DIRECTED 09/13 /2024 completed Not Available Not Available Not Available [...] Prescrib ed Elsewher e: No Locat ion: [facility] odify By: raul Davenport ter DateTime : 04/23/20 15 11:17:56 AM [...] Prescrib ed Elsewher e: No [facility] By: raul Davenport ter DateTime : 10/10/20 15 11:00:00 AM [...] Prescrib ed Elsewher e: No Locat ion: [facility] By: annalisa turner DateTime : [...] Prescrib ed Elsewher e: No Locat ion: [facility] By: amkshari palomo DateTime : 07/21/20 18 04:08:38 PM Not Available Not Available Not Available dicyclomi ne 20 mg tablet 10/01 completed Not Available Not Available Not Available betametha sone valerate 0.1 % topical cream apply by topical route every day a thin layer to the affected area(s) 02/01 completed Prescrib ed Elsewher e: No Locat ion: [facility] By: [email or web address] z Encoun ter [...] Prescrib ed Elsewher e: No Locat ion: [facility] By: annalisa turner DateTime : [...] Prescrib ed Elsewher e: No Locat ion: [facility] By: jill palomo DateTime : 04/03/20 [...] Prescrib ed Elsewher e: No Locat ion: [facility] By: raul villanueva Encoun ter DateTime : 09/02/20 15 09:21:34 AM Not Available Not Available Not Available norethind jatinder (contrace ptive) 0.35 mg tablet TAKE 1 TABLET BY MOUTH EVERY DAY 02/13 completed Not Available Not Available Not Available Zoloft 25 mg tablet take 1 tablet by oral route every day 03/29 completed Prescrib ed Elsewher e: No [facility] By: raul villanueva Encoun ter DateTime : 04/03/20 16 02:45:00 [...] Prescrib ed Elsewher e: No Locat ion: [facility] By: annalisa turner DateTime : [...] Prescrib ed Elsewher e: No [facility] By: senait palomo DateTime : [...] Prescrib ed Elsewher e: No Locat ion: [facility] By: lexi correa DateTime : [...] Prescrib ed Elsewher e: No [facility] By: [email or web address] Dharmesh turner DateTime : 05/28/20 11:15:00 AM Not Available Not Available Not Available Humulin N NPH U-100 Insulin KwikPen 100 unit/mL (3 mL) subcutane ous 09/03 completed Not Available Not Available Not Available Fora C12-S27-A 10-D20 strips-la ncets 30 gauge combo pack checking BS QID fasting and 1hr pp 07/21 completed Prescrib ed Elsewher e: No [facility] By: rubi Barroso r DateTime [...] Prescrib ed Elsewher e: No [facility] By: annalisa Barroso r DateTime [...] completed Not Available Not Available Not Available Natasha Delica Plus Lancet 30 gauge USE DIRECTED [...] completed Not Available Not Available Not Available lorenapati de 06/01 completed Not Available Not Available Not Available Dexcom G7 Sensor device TEST BLOOD GLUCOSE DIRECTED . CHANGE EVERY 10 DAYS 07/23 completed Not Available Not Available Not Available Vitals Date Recorded Body height Body mass index (BMI) Body weight Systolic And Diastolic Provider Name and Address Organization Details Last Updated DateTime 10/15/2025 157.48 cm 33.8 kg/m2 58580.59 g 119/73 mm[Hg] Emily Millard [facility] 10/15/2025 14:32:05 Social History Question Answer Notes LastModified by Organizat ion Details LastModified Time Tobacco Smoking Status Former Smoker Emma conrad, [facility] 10/01/2020 15:14:21 If You Are , What Was Your Level Of Alcohol Consumption Prior To ? Occasional Information not available 02/01/2023 Are You Blind Or Do You Have Difficulty Seeing? No [email or web address] Information not available 09/23/2021 What Is Your Level Of Caffeine Consumption? Occasional [email or web address] Information not available 10/29/2025 In The 14 Days Before Symptom Onset, Have You Had Close Contact With A Laboratory-confir med COVID-19 While That Case Was Ill? No [email or web address] Information not available 02/01/2023 In The 14 Days Before Symptom Onset, Have You Had Close Contact With A Person Who Is Under Investigation For COVID-19 While That Person Was Ill? No [email or web address] Information not available 02/01/2023 Have You Been To An Area Known To Be High Risk For COVID-19? No [email or web address] Information not available 02/01/2023 Are You Deaf Or Do You Have Serious Difficulty Hearing? No [email or web address] Information not available 09/23/2021 What Type Of Diet Are You Following? REGULAR [email or web address] Information not available 09/23/2021 What Is The Highest Grade Or Level Of School You Have Completed Or The Highest Degree You Have Received? [id number] [email or web address] Information not available 10/29/2025 What Was The Date Of Your Most Recent Tobacco Screening? 08/30/2024 Information not available 08/30/2024 Do You Use Protection During Sex? No [email or web address] Information not available 10/29/2025 Do You Use Your Seat Belt Or Car Seat Routinely? Yes [email or web address] Information not available 02/01/2023 Are You Sexually Active? Yes [email or web address] Information not available 10/29/2025 Do You Have Smoke And Carbon Monoxide Detectors In Your Home? Yes [email or web address] Information not available 02/01/2023 How Much Tobacco Do You Smoke? No [email or web address] Information not available 05/21/2020 Do You Use Sunscreen Routinely? Yes [email or web address] Information not available 02/01/2023 Has Tobacco Cessation Counseling Been Provided? No [email or web address] Information not available 02/01/2023 Do You Have Difficulty Walking Or Climbing Stairs? No [email or web address] Information not available 07/21/2022 Sex: Unknown Functional Status Question Answer Note LastModified by Organizat ion Details LastModified Time Do you use any illicit or recreational drugs? No [email or web address] Information not available 02/01/2023 Do you or have you ever used any other forms of tobacco or nicotine? No [email or web address] Information not available 02/01/2023 What is your level of alcohol consumption? None [email or web address] Information not available 02/01/2023 Do you or have you ever used smokeless tobacco? Never used smokeless tobacco Information not available 05/21/2020 Are you currently employed? No [email or web address] Information not available 10/29/2025 Are you able to walk independently without assistance or assistive devices? YESWOREST [email or web address] Information not available 09/23/2021 Are you able to care for yourself independently? Yes [email or web address] Information not available 07/21/2022 Do you have difficulty dressing, bathing, grooming, or toileting? No [email or web address] Information not available 07/21/2022 Do you or have you ever used e-cigarettes or vape? Never used electronic cigarettes Information not available 05/21/2020 What is your exercise level? Occasional walking jgumber Information not available 03/05/2020 Mental Status Question Answer Note LastModified by Organization D etails LastModified Time Do you feel stressed (tense, restless, nervous, or anxious, or unable to sleep at night)? [id number] [email or web address] Information not available 02/01/2023 Family History Relationship [...] ICD10 Code Diagnosis IMO Codes Diagnosis Note [id number] Venkat Gotti MD [facility] [address],[place] [address] 10/08/2025 10:54:40 10/08/2025 11:44:42 Threatened miscarriage [id number] O20.0 Z3A.01 [id number] CLAUDETTE SINGH MD [facility] [address],[place] [address] 10/15/2025 13:26:38 10/15/2025 13:50:58 Complication occurring during [id number] O99.891 Z3A.01 [id number] Venkat Gotti MD [facility] [address],[place] [address] 10/15/2025 13:27:10 10/15/2025 14:59:28 Acute urinary tract infection [id number] N39.0 [id number] Gestationa l diabetes mellitus 35144120 O24.410 [id number] this patient is a 30-year-ol d female [...] Member ID Guarantor Name 10/15/2025 1 [employer] [id number] Buddy Yusuf [id number] Mariel Yusuf Notes Date Note Type Note [...] total. Venkat Gotti MD [address], [place], [address], [place] [facility] 10/15/2025 14:58:31 OBGyn Episode No OBEpisode recorded.
== END 2025-11-07 17:45 | disposition home or self-care (01) ==
PROVIDERS: Registered Nurse; Emergency Provider Emergency Medicine
DX: O23.41 Unspecified infection of urinary tract in pregnancy, first trimester (principal); N39.0 Urinary tract infection, site not specified; O46.8X1 Other antepartum hemorrhage, first trimester; Z86.32 Personal history of gestational diabetes; Z87.891 Personal history of nicotine dependence; Z90.49 Acquired absence of other specified parts of digestive tract; Z3A.10 10 weeks gestation of pregnancy
CPT/HCPCS: 36415; 76801; 80053; 81001; 84702; 85025; 85461; 86850; 86900; 86901; 87086; 99284; A9270

== ENCOUNTER 2025-11-11 22:24 | Emergency (ER) | payer OTHER, SELFPAY ==
--- OUTSIDE RECORDS SUMMARY | 2025-11-11 22:26 | XMS_ITS | Continuity of Care Document ---
Author Organization [facility] [address] [place] [address] [place] [address] Care Team Providers Care Legal Clerk Name Role Phone ZHOU SWAIN Primary Care Provider Assessment No assessment recorded. Plan of Treatment Reminders Order Date Submit Date Provider Last Modified By Organization Details Last Modified Time Details Appointments U/S OB FIRST LOOK 2024 10:30A M ULTRASOUND Not available Not available Not available OB NEW 2024 11:00A M Rene GOTTI MD Not available Not available Not available Lab None recorde d. Referral None recorde d. Procedures None recorde d. Surgeries None recorde d. Imaging US, obstetr ic, transva ginal 2024 025 [email or web address], [address], [place], [address], 10/08/2025 18:48:46 Medication Orders None recorde d. [...] t Abnor mal: No Resul ting Lab: [facility] [address] [facility] [address] Tel: CULTU RE ----- ----- ----- --- Cultu re resul t (>=3 organ isms prese nt) indic ates possi ble conta minat ion. Repea t cultu re if sympt oms indic ate. Not Available [facility] (Lab) [address], [place], [address], 10/10/2025 08:41:21 10/08/20 25 10/08/2025 US, obste tric, trans vagin al No observ ation record ed. [email or web address] [address], [place], [address], 10/08/2025 15:50:26 10/08/20 25 10/08/2025 US, obste tric, trans vagin al No observ ation record ed. [email or web address] [address], [place], [address], 10/08/2025 20:28:04 10/15/20 25 10/15/2025 US, obste tric, trans vagin al No observ ation record ed. [email or web address] [place] [address], [place], [address], 10/15/2025 14:43:23 10/15/20 25 10/15/2025 US, obste tric, trans vagin al No observ ation record ed. [email or web address] [address], [place], [address], 10/15/2025 15:11:39 10/29/20 25 10/29/2025 US, obste tric, 1st trime ster No observ ation record ed. [email or web address] [address], [place], [address], 10/29/2025 17:12:57 Result Notes None recorded. Problems Name Problem SNOMED Code Status Onset Date Resolution Date Notes Provider Name and Address Organization Details Recorded Time Gestatio nal diabetes mellitus class A2 54245248 Completed 5u NPH AM, 5u Lispro Lunch, 15u NPH @ HS - MF 03/31 [facility] 14:52:11 Cholesta sis [id number] Completed 07/07 - Per Scarlett with M - she spoke with Dr. Dangelo and to cont ursodiol and anticipa te/assum e cholesta sis based on presenta tion. Rpt labs next week before MF appt on 07/21. Might recommen d 37-38wk del José Martinezizzle [facility] 3 14:52:12 Amenorrh ea [id number] Completed 201409/23/2021 AMENORRH EA;Pract ice ID: 0001 Emma Cordova [facility] 1 10:28:02 Speciali d medical examinat ion Completed 201409/23/2021 Routine gynecolo gical examinat ion;Prac dante ID: 0001 Emma Cordova [facility], [facility] 10:31:25 Pregnanc y test positive [id number] Completed 201409/23/2021 Positive Pregnanc y Test;Pra ctice ID: 0001 Emma Cordova [facility], [facility] 1 10:30:38 Uterine size for dates discrepa ncy [id number] Completed 201409/23/2021 UTERINE SIZE MEG-ANTE PAR;Prac dante ID: 0001 Emma Cordova [facility] 10:31:47 Mild hypereme sis-not delivere d [id number] Completed 201409/23/2021 Hypereme sis gravidar um, antepart um Mild;Pra ctice ID: 0001 Emma Cordova [facility] 10:30:08 Nausea and vomiting [id number] Completed 201409/23/2021 Nausea with vomiting ;Practic e ID: 0001 [facility] 10:30:09 Syncope and collapse [id number] Completed 201409/23/2021 Syncope and collapse ;Practic e ID: 0001 Emma conrad [facility] 10:31:31 Antenata l screenin g Completed 201409/23/2021 ANTENATA L SCREENIN G NEC;Prac dante ID: 0001 Emma Cordova [facility] 10:28:04 Primigra parisa [id number] Completed 201409/23/2021 Supervis ion of normal first pregnanc y;Practi ce ID: 0001 Emma Cordova [facility] 10:30:56 anatomy study Completed 201409/23/2021 [facility] SURVEY;P ractice ID: 0001 Emma Cordova [facility] 10:29:10 Complica tion of pregnanc y, childbir th and/or puerperi um [id number] Completed 201409/23/2021 OTH CURR COND-ANT EPARTUM; Practice ID: 0001 Emmapat Cordova [facility] 10:28:17 Pregnanc y, childbir th and puerperi um finding Completed 201409/23/2021 Encntr for suprvsn of normal first preg, third trimeste r;Practi ce ID: 0001 Emma Cordova [facility] 10:30:41 Urinary tract infectio us disease [id number] Completed 201409/23/2021 Urinary tract infectio n, site not specifie d;Practi ce ID: 0001 Emma conrad, [facility] 1 10:31:42 Eruption [id number] Completed 201409/23/2021 Rash;Rec orded Elsewher e: No Locat ion: Curtis vargas [facility] S ource: EHR Assistant To The Director doris: N Practi ce ID: 0001 Roel lable Time: 03:30:00 PM Emma conrad, [facility] 1 10:28:58 Pregnanc y, childbir th and puerperi um finding Completed 201409/23/2021 Oth pregnanc y related conditio ns, third trimeste r;Practi ce ID: 0001 Emma conrad, [facility] 1 10:28:13 Noninfec tious enteriti s of intestin e Completed 201409/23/2021 Gastroen teritis; Recorded Elsewher e: No Locat ion: [facility] S ource: EHR Assistant To The Director doris: N Practi ce ID: 0001 Roel lable Time: 02:30:00 PM Emma conrad, [facility] 1 10:30:00 prematur e rupture of membrane s [id number] Completed 201409/23/2021 Pretrm evelin ROM, unsp time betw rupt and onst labr, 3rd tri;Prac dante ID: 0001 Emma Cordova [facility], [facility] 1 10:30:54 Lochia finding Completed 201509/23/2021 Encounte r for routine postpart um follow-u p;Record ed Elsewher e: No Locat ion: [facility] S ource: EHR Assistant To The Director doris: N Practi ce ID: 0001 Roel lable Time: 01:00:00 PM Emma Cordova [place], [facility] 1 10:30:[address] Concept Completed 201509/23/2021 Encounte r for surveill ance of other contrace ptives;R ecorded Elsewher e: No [facility] S ource: EHR Assistant To The Director doris: N Practi ce ID: 0001 Roel lable Time: 01:00:00 PM Emma Cordova [facility] 1 10:31:20 Sexually transmit car infectio us disease [id number] Completed 201509/23/2021 STD;Romulo rded Elsewher e: No Locat ion: [facility] alicia [facility] S ource: EHR Assistant To The Director doris: N Practi ce ID: 0001 Roel lable Time: 10:30:00 AM Emma Cordova [facility] 1 10:31:01 Uses combined oral contrace ption [id number] Completed 201609/23/2021 Encounte r for initial prescrip tion of contrace ptive pills;Re corded Elsewher e: No Locat ion: [facility] S ource: EHR Assistant To The Director doris: N Practi ce ID: 0001 Roel lable Time: 08:30:00 AM Emma Tasha [place] [facility] 1 10:28:15 Procedur e Completed 201609/23/2021 Encounte r for checking , reinsert ion or removal of implanta ble subderma l contrace ptive;Re corded Elsewher e: No Locat ion: [facility] S ource: EHR Assistant To The Director doris: N Practi ce ID: 0001 Roel lable Time: 08:30:00 AM Emma Cordova [facility] 1 10:30:58 Infectio n screenin g Completed 201609/23/2021 Encounte r for screenin g for oth infec/pa rastc diseases ;Recorde d Elsewher e: No Locat ion: [facility] S ource: EHR Assistant To The Director doris: N Jairti ce ID: 0001 Roel lable Time: 11:00:00 AM Emma Cordova [facility], [facility] 1 10:29:58 Acute vaginiti s [id number] Completed 201609/23/2021 Acute vaginiti s;Record ed Elsewher e: No Locat ion: [facility] S ource: EHR Assistant To The Director doris: N Jairti ce ID: 0001 Roel lable Time: 11:00:00 AM Emma Cordova [facility], [facility] 1 10:28:00 Vaginola bial hernia Completed 201609/23/2021 Other specifie d noninfla mmatory disorder s of vagina;R ecorded Elsewher e: No Locat ion: [facility] S ource: EHR Assistant To The Director doris: N Ab ce ID: 0001 Roel lable Time: 11:00:00 AM Emma Cordova [facility], [facility] 1 10:31:49 Counseli ng for harmful pattern of substanc e use Completed 201609/23/2021 Tobacco abuse counseli ng;Recor ded Elsewher e: No Locat ion: [facility] S ource: EHR Assistant To The Director doris: N Jairti ce ID: 0001 Roel lable Time: 11:00:00 AM Emma Cordova [place] [facility] [address] 10:31:[address] Concept Completed 201609/23/2021 Encntr for general adult medical exam w/o abnormal findings ;Recorde d Elsewher e: No Locat ion: [facility] S ource: EHR Assistant To The Director doris: N Jairti ce ID: 0001 Roel lable Time: 11:00:00 AM Emma Cordova [facility] 1 10:31:16 Increase d frequenc y of urinatio n [id number] Completed 201609/23/2021 Frequenc y of micturit ion;Romulo rded Elsewher e: No [facility] N Jairti ce ID: 0001 Roel lable Time: 11:15:00 AM Emma conrad, [facility] 1 10:29:56 Pregnanc y detectio n examinat ion Completed 201709/23/2021 Encounte r for pregnanc y test, result positive ;Recorde d Elsewher e: No Locat ion: [facility]: N Jairti ce ID: 0001 Roel lable Time: 02:15:00 PM Emma conrad, [facility] 10:30:18 Finding of regulari ty of menstrua l cycle Completed 201709/23/2021 Irregula r bleeding ;Recorde d Elsewher e: No Locat ion: [facility]: N Jairti ce ID: 0001 Roel lable Time: 02:15:00 PM Emma conrad, [facility] 10:29:18 Cyst of ovary Completed 201709/23/2021 Unspecif ied ovarian cyst, unspecif ied side;Rec orded Elsewher e: No [facility] d[facility]: N Jairti ce ID: 0001 Roel lable Time: 11:00:00 AM Emma conrad [facility] 1 10:28:44 Syphilis test finding [id number] Completed 201709/23/2021 Encntr screen for infectio ns w sexl mode of transmis s;Record ed Elsewher e: No Locat ion: [facility]: N Jairti ce ID: 0001 Roel lable Time: 11:00:00 AM Emma conrad, [facility] [address] 10:31:[address] Concept Completed 201709/23/2021 Encntr for obstetrics and gynecology professor exam (general ) (routine ) w/o abn findings ;Recorde d Elsewher e: No Locat ion: Edith alicia [facility] S [facility]ce[facility]: N Jairti ce ID: 0001 Roel lable Time: 11:00:00 AM Emma Cordova [place], [facility] 1 10:31:18 Body mass index 30+ - obesity [id number] Completed 201709/23/2021 Body mass index (BMI) 32.0-32. 9, adult;Re corded Elsewher e: No Locat ion: [facility]: N Jairti ce ID: 0001 Roel lable Time: 11:00:00 AM Emma conrad, [facility] 1 10:28:11 Finding of pattern of menstrua l cycle Completed 201709/23/2021 Excessiv e and frequent menstrua tion with irregula r cycle;Re corded Elsewher e: No Locat ion: [facility]: N Jairti ce ID: 0001 Roel lable Time: 01:00:00 PM Emma conrad [facility] 1 10:29:16 Mammogra phic calcific ation of breast [id number] Completed 201709/23/2021 Mammogra phic calcifcn found on diagnost ic imaging of breast;R ecorded Elsewher e: No Locat ion: [facility] d[facility]: N Practi ce ID: 0001 Roel lable Time: 01:00:00 PM Emma conrad [facility] 1 10:30:05 Pain in female genitali a Completed 201709/23/2021 Dysmenor jannette, unspecif ied;Romulo rded Elsewher e: No [facility] our[facility]: EHR Assistant To The Director doris: N Ab ce ID: 0001 Roel lable Time: 01:00:00 PM Emma Cordova [place], [facility] 10:30:13 Depressi ve disorder [id number] Completed 201709/23/2021 Major depressi ve disorder , single episode, unspecif ied;Romulo rded Elsewher e: No Locat ion: [facility] S ource: EHR Assistant To The Director doris: N Ab ce ID: 0001 Roel lable Time: 09:00:00 AM Emma Cordova [facility], [facility] 10:28:[address] Concept Completed 201709/23/2021 Anxiety disorder , unspecif ied;Romulo rded Elsewher e: No Locat ion: [facility] S ource: EHR Assistant To The Director doris: N Ab ce ID: 0001 Roel lable Time: 09:45:00 AM Emma Brittontz [facility], [facility] 10:31:09 Pregnanc y test negative [id number] Completed 201709/23/2021 Encounte r for pregnanc y test, result negative ;Recorde d Elsewher e: No Locat ion: [facility] S ource: EHR Assistant To The Director doris: N Ab ce ID: 0001 Roel lable Time: 09:45:00 AM Emma Brittontz [place], [facility] 1 10:30:36 Blood leukocyt e number above referenc e range [id number] Completed 201709/23/2021 Elevated white blood cell count, unspecif ied;Romulo rded Elsewher e: No Locat ion: [facility] S ource: EHR Assistant To The Director doris: Marjorie Adamti ce ID: 0001 Roel lable Time: 11:45:00 AM Emma Cordova [facility], [facility] 10:29:54 Pelvic and perineal pain [id number] Completed 201709/23/2021 Pelvic and perineal pain;Rec orded Elsewher e: No [facility] S our[facility]: EHR Assistant To The Director doris: N Practi ce ID: 0001 Roel lable Time: 11:15:00 AM Emma conrad [facility] 10:30:16 Dysuria [id number] Completed 201709/23/2021 Dysuria; Recorded Elsewher e: No Locat ion: [facility] S ource: EHR Assistant To The Director doris: N Practi ce ID: 0001 Roel lable Time: 11:45:00 AM Emma conrad, [facility] 10:28:56 Exposure to sexually transmis sible disorder Completed 201709/23/2021 Contact w and exposure to infect w a sexl mode of transmis s;Practi ce ID: 0001 Emma conrad, [facility] 10:29:00 Gestatio n less than 9 weeks [id number] Completed 201809/23/2021 Less than 8 weeks gestatio n of pregnanc y;Record ed Elsewher e: No Locat ion: [facility] S ource: EHR Assistant To The Director doris: N Practi ce ID: 0001 Roel lable Time: 08:15:00 AM Emma conrad [facility] 10:29:22 Situatio n with explicit context Completed 201809/23/2021 Suprvsn of preg w poor reprodct v or obstet hx, first tri;Romulo rded Elsewher e: No Locat ion: [facility] S ource: EHR Assistant To The Director doris: N Practi ce ID: 0001 Roel lable Time: 08:15:00 AM Emma conrad [facility] 1 10:31:07 Threaten ed miscarri age [id number] Completed 201809/23/2021 Threaten ed ;Recorde d Elsewher e: No Locat ion: Aliy[facility]brynn alicia [facility] S ource: EHR Assistant To The Director doris: N Jairrodney ce ID: 0001 Roel lable Time: 10:30:00 AM Emma Cordova [facility], [facility] 10:31:38 Blighted ovum [id number] Completed 201809/23/2021 Blighted ovum and nonhydat idiform mole;Rec orded Elsewher e: No Locat ion: Ali[facility]brynn alicia [facility] S ource: [facility] Assistant To The Director doris: N Jairti ce ID: 0001 Roel lable Time: 10:30:00 AM Emma Cordova [facility], [facility] 10:28:08 Finding of contents of cervix [id number] Completed 201809/23/2021 Weeks of gestatio n of pregnanc y not specifie d;Record ed Elsewher e: No Locat ion: [facility] S ource: EHR Assistant To The Director doris: N Jairti ce ID: 0001 Roel lable Time: 10:30:00 AM Emma conrad, [facility] 10:29:13 Normal pregnanc y in multigra parisa [id number] 75632 Completed 201809/23/2021 Encounte r for suprvsn of normal pregnanc y, second trimeste r;Record ed Elsewher e: No Locat ion: [facility]iryam vargas [facility]: N Practi ce ID: 0001 Roel lable Time: 05:00:00 PM Emma Cordova [place], [facility] 1 10:30:11 Antenata l screenin g for malforma tion Completed 201809/23/2021 Encounte r for antenata l screenin g for malforma tions;Re corded Elsewher e: No Locat ion: [facility] S ource: EHR Assistant To The Director doris: N Jairti ce ID: 0001 Roel lable Time: 10:30:00 AM Emma conrad [facility] 1 10:28:06 Gestatio n period, 20 weeks [id number] Completed 201809/23/2021 20 weeks gestatio n of pregnanc y;Record ed Elsewher e: No [facility] S ource: EHR Assistant To The Director doris: N Jairti ce ID: 0001 Roel lable Time: 11:30:00 AM Emma conrad [facility] 1 10:29:24 Finding of trunk structur e Completed 201909/23/2021 Oth diseases and conditio ns compl preg/chl dbrth;Re corded Elsewher e: No [facility] our[facility]: EHR Assistant To The Director doris: N Jairti ce ID: 0001 Roel lable Time: 03:15:00 PM Emma conrad [facility] 1 10:31:40 Gestatio n period, 29 weeks [id number] Completed 201909/23/2021 29 weeks gestatio n of pregnanc y;Record ed Elsewher e: No Locat ion: [facility] S ource: EHR Assistant To The Director doris: N Jairti ce ID: 0001 Roel lable Time: 03:15:00 PM Emma conrad [facility] 1 10:29:27 Gestatio n period, 30 weeks [id number] Completed 201909/23/2021 30 weeks gestatio n of pregnanc y;Record ed Elsewher e: No Locat ion: [facility] S ource: EHR Assistant To The Director doris: N Jairti ce ID: 0001 Roel lable Time: 10:45:00 AM Emma conrda [facility] 1 10:29:29 Uterine size for dates discrepa ncy Completed 201909/23/2021 Uterine size-neeta e discrepa ncy, second trimeste r;Record ed Elsewher e: No Locat ion: Curtis vargas [facility] S ource: EHR Assistant To The Director doris: N Practi ce ID: 0001 Roel lable Time: 10:45:00 AM Emma conrad, [facility] 10:31:[address] Concept Completed 201909/23/2021 Decrease d movement s, third trimeste r, unsp;Rec orded Elsewher e: No Locat ion: Curtis vargas [facility] S ource: EHR Assistant To The Director doris: N Practi ce ID: 0001 Roel lable Time: 11:30:00 AM Emma conrad, [facility] 10:31:14 Prematur e rupture of membrane s [id number] Completed 201909/23/2021 Evelin ROM, 7th0 betw rupt & onst labr, unsp weeks of gest;Pra ctice ID: 0001 Emma conrad, [facility] 10:30:51 Gestatio n period, 32 weeks [id number] Completed 201909/23/2021 32 weeks gestatio n of pregnanc y;Record ed Elsewher e: No Locat ion: Curtis vargas [facility] S ource: EHR Assistant To The Director doris: N Practi ce ID: 0001 Roel lable Time: 11:00:00 AM Emma conrad [facility] 10:29:30 Gestatio n period, 33 weeks [id number] Completed 201909/23/2021 33 weeks gestatio n of pregnanc y;Record ed Elsewher e: No Locat ion: Curtis vargas [facility] S ource: EHR Assistant To The Director doris: N Practi ce ID: 0001 Roel lable Time: 03:00:00 PM Emma conrad, [facility] 10:29:32 Gestatio n period, 34 weeks [id number] Completed 201909/23/2021 34 weeks gestatio n of pregnanc y;Record ed Elsewher e: No Locat ion: [facility] S ource: EHR Assistant To The Director doris: N Practi ce ID: 0001 Roel lable Time: 11:00:00 AM Emma conrad, [facility] 10:29:34 False labor before 37 complete d weeks of gestatio n [id number] Completed 201909/23/2021 False labor before 37 complete d weeks of gest, third tri;Prac dante ID: 0001 Emma conrad, [facility] 10:29:08 Gestatio n period, 35 weeks [id number] Completed 201909/23/2021 35 weeks gestatio n of pregnanc y;Record ed Elsewher e: No [facility] our[facility]: EHR Assistant To The Director doris: N Practi ce ID: 0001 Roel lable Time: 11:30:00 AM Emma conrad, [facility] 10:29:36 Gestatio nal diabetes mellitus [id number] Completed 201909/23/2021 Gestatio nal diabetes in pregnanc y, insulin controll ed;Recor ded Elsewher e: No Locat ion: [facility] S ource: EHR Assistant To The Director doris: N Practi ce ID: 0001 Roel lable Time: 10:30:00 AM Emma conrad, [facility] 10:29:52 Gestatio n period, 36 weeks [id number] Completed 201909/23/2021 36 weeks gestatio n of pregnanc y;Practi ce ID: 0001 Emma conrad, [facility] 10:29:38 Pregnanc y-induce d hyperten bo Completed 201909/23/2021 Gestatio nal htn w/o signific ant proteinu anais, third trimeste r;Practi ce ID: 0001 Emma conrad, [facility] 10:30:49 Gestatio n period, 37 weeks [id number] Completed 201909/23/2021 37 weeks gestatio n of pregnanc y;Record ed Elsewher e: No [facility] our[facility]: EHR Assistant To The Director doris: N Practi ce ID: 0001 Roel lable Time: 10:30:00 AM Emma conrad [facility] 10:29:40 False labor at or after 37 complete d weeks of gestatio n [id number] Completed 201909/23/2021 False labor at or after 37 complete d weeks of gestatio n;Practi ce ID: 0001 Emma conrad, [facility] 10:29:06 Gestatio n period, 38 weeks [id number] Completed 201909/23/2021 38 weeks gestatio n of pregnanc y;Record ed Elsewher e: No Locat ion: [facility] S ource: EHR Assistant To The Director doris: N Practi ce ID: 0001 Roel lable Time: 10:30:00 AM Emma conrad [facility] 10:29:41 Term pregnanc y delivere d [id number] Completed 201909/23/2021 Encounte r for full-ter m uncompli cated delivery ;Practic e ID: 0001 Emma conrad [facility] 10:31:36 Single live from singleto n pregnanc y [id number] Completed 201909/23/2021 Single live ;Pr actice ID: 0001 Emma conrad [facility] 1 10:31:03 Gestatio n period, 39 weeks [id number] Completed 201909/23/2021 39 weeks gestatio n of pregnanc y;Practi ce ID: 0001 Emma Cordova [facility], [facility] 10:29:43 Past pregnanc y history of gestatio nal diabetes mellitus [id number] Active 2022 Tiffanie Flores MD [address], [place], [address], [facility] 3 19:36:59 Pregnanc y [id number] Completed 202208/16/2023 [facility] 3 14:52:19 Gestatio nal diabetes mellitus [id number] Completed 2022 h/o gdm2A. Checking BS QID, serial growth, antenata l testing [facility] 14:52:11 Problem Notes None recorded. Procedures Surgical History Date Name Laterality Status Provider Name and Address Organization Details Recorded Time 06/07/20 25 Dilation and Curettage completed Emily Millard [facility] 06/18/2025 14:42:30 02/14/20 25 Date of Last Pap Smear completed Tiffanie Boothe [facility] 06/01/2025 12:11:46 08/30/20 24 IUD Removal completed Maria T Carlton CNM [address], [place], [address], [facility] 08/31/2024 13:59:56 08/04/20 24 IUD Insertion completed Maria T Carlton CNM [address], [place], [address], [facility] 08/05/2024 08:44:48 07/29/20 22 Hysteroscopy completed Maria T Carlton, NESSA [address], [place], [address], [facility] 07/29/2022 08:52:41 07/29/20 22 Hysteroscopy completed Emma Cordova [facility] 07/29/2022 08:35:27 07/21/20 22 IUD Removal completed Swetha Durhamsudhakar [facility] 07/21/2022 12:21:30 04/17/20 20 [facility]2020 12:09:21 03/20/20 20 [facility] 03/20/2020 12:11:51 11/22/19 18 Appendectomy completed Emma Cordova [facility] 10/01/2020 19:16:40 11/22/19 14 completed Kayla Fournier [facility] 10/08/2021 16:13:03 11/22/19 14 colonoscopy completed Emma Cordova [facility] 09/23/2021 10:34:09 11/22/19 13 Dilation and curettage completed Emma Cordova [facility] 09/23/2021 10:34:16 11/22/19 00 tonsillectomy completed Emma Cordova [facility] 09/23/2021 10:34:23 Imaging Results None recorded. Procedure Notes None recorded. Medical Equipment None Reported. Allergies Allergen ID Allergen Name Allergen Category Reaction Reaction Severity Criticality Documentation Date Start Date Code Code System Note Provider Name and Address Organization Details Recorded Time prednison e medicatio n Not available Not available Not available 01/05/2023 8640 RxNorm Emma conrad [facility] 10:49:28 2666 amoxicill in medicatio n Not available Not available Not available 10/01/2020 723 RxNorm Emma conrad, [facility] 1 10:27:49 08616 aluminum aspirin Not available Not available Not available Not available 10/08/20252020 611 RxNorm unrec ogniz ed react ion (text : Other , code: 79287 07) (from [facility]) Not Available carlos - External Data Service - prod 5 09:39:58 91 aspirin medicatio n Not available Not available Not available 03/04/2020 1191 RxNorm Caterina conrad, [facility] 0 17:51:36 Medications Name Sig [...] completed Not Available Not Available Not Available glyburide 5 mg tablet Take 1 tablet every day by oral route. 2024 active Not Available Not Available Not Avai lable hydrocodo ne 5 mg-acetam inophen 325 mg tablet TAKE 1 TABLET BY MOUTH EVERY 6 HOURS NEEDED FOR PAIN 11/08 completed Not Available Not Available Not Available promethaz ine 25 mg rectal supposito ry insert 1 supposit ory by rectal route every morning 02/01 completed Prescrib ed Elsewher e: No Locat ion: [facility] odify By: raul z Encoun ter [...] completed Not Available Not Available Not Available glipizide 10 mg tablet TAKE 1 TABLET BY MOUTH EVERY DAY 2024 active Not Available Not Available Not Avai lable Monistat 7 2 % vaginal cream insert 1 applicat orful by vaginal route every day at bedtime 02/01 completed Prescrib ed Elsewher e: No Locat ion: [facility] odify By: raul z Encoun ter [...] Prescrib ed Elsewher e: No [facility] By: annalisa turner DateTime : [...] Locat ion: [facility] odify By: amkuhl E ncounter DateTime : [...] raul z Encoun ter DateTime : 09/02/20 15 09:21:34 AM Not Available Not Available Not Available norethidamian ste (contrace ptive) 0.35 mg tablet TAKE 1 TABLET BY MOUTH EVERY DAY 02/13 completed Not Available Not Available Not Available Zoloft 25 mg tablet take 1 tablet by oral route every day 03/29 completed Prescrib ed Elsewher e: No [facility] By: raul z Encoun ter [...] ed Elsewher e: No [facility] By: amemmanuel palomo DateTime : 08/01/20 [...] ed Elsewher e: No [facility] By: lexi correa DateTime : [...] Locat ion: [facility] odify By: [email or web address] turner DateTime : 05/28/20 11:15:00 AM Not Available Not Available Not Available Humulin N NPH U-100 Insulin KwikPen 100 unit/mL (3 mL) subcutane ous 10/13 /2023 completed Not Available Not Available Not Available Fora S54-L39-A 10-D20 strips-la ncets 30 gauge combo pack checking BS QID fasting and 1hr pp 07/21 completed Prescrib ed Elsewher e: No Locat ion: [facility] odify By: rubi turner DateTime : 11/27/19 20 11:22:44 AM Not [...] Elsewher e: No Locat ion: [facility] odify By: annalisa turner DateTime : [...] completed Not Available Not Available Not Available tirzepati de 06/01 completed Not Available Not Available Not Available Dexcom G7 Sensor device TEST BLOOD GLUCOSE DIRECTED . CHANGE EVERY 10 DAYS 07/23 completed Not Available Not Available Not Available Vitals None Recorded Social History Question Answer Notes LastModified by Organizat ion Details LastModified Time Tobacco Smoking Status Former Smoker Emma Cordova [facility], [facility] 10/01/2020 15:14:21 If You Are , What Was Your Level Of Alcohol Consumption Prior To ? Occasional [email or web address] Information not available 02/01/2023 Are You Blind Or Do You Have Difficulty Seeing? No Information not available 09/23/2021 What Is Your Level Of Caffeine Consumption? Occasional [email or web address] Information not available 10/29/2025 In The 14 Days Before Symptom Onset, Have You Had Close Contact With A Laboratory-confir med COVID-19 While That Case Was Ill? No [email or web address] Information not available 02/01/2023 In The 14 Days Before Symptom Onset, Have You Had Close Contact With A Person Who Is Under Investigation For COVID-19 While That Person Was Ill? No [email or web address] Information not available 02/01/2023 Have You Been To An Area Known To Be High Risk For COVID-19? No Information not available 02/01/2023 Are You Deaf Or Do You Have Serious Difficulty Hearing? No [email or web address] Information not available 09/23/2021 What Type Of Diet Are You Following? REGULAR [email or web address] Information not available 09/23/2021 What Is The Highest Grade Or Level Of School You Have Completed Or The Highest Degree You Have Received? [id number] [email or web address] Information not available 10/29/2025 What Was The Date Of Your Most Recent Tobacco Screening? 08/30/2024 [email or web address] Information not available 08/30/2024 Do You Use Protection During Sex? No Information not available 10/29/2025 Do You Use Your Seat Belt Or Car Seat Routinely? Yes [email or web address] Information not available 02/01/2023 Are You Sexually Active? Yes Information not available 10/29/2025 Do You Have Smoke And Carbon Monoxide Detectors In Your Home? Yes [email or web address] Information not available 02/01/2023 How Much Tobacco Do You Smoke? No [email or web address] Information not available 05/21/2020 Do You Use Sunscreen Routinely? Yes [email or web address] Information not available 02/01/2023 Has Tobacco Cessation Counseling Been Provided? No [email or web address] Information not available 02/01/2023 Do You Have Difficulty Walking Or Climbing Stairs? No [email or web address] Information not available 07/21/2022 Sex: Unknown Functional Status Question Answer Note LastModified by [employer] ion Details LastModified Time Do you use any illicit or recreational drugs? No [email or web address] Information not available 02/01/2023 Do you or have you ever used any other forms of tobacco or nicotine? No [email or web address] Information not available 02/01/2023 What is your level of alcohol consumption? None [email or web address] Information not available 02/01/2023 Do you or have you ever used smokeless tobacco? Never used smokeless tobacco [email or web address] Information not available 05/21/2020 Are you currently employed? No [email or web address] Information not available 10/29/2025 Are you able to walk independently without assistance or assistive devices? YESWOREST [email or web address] Information not available 09/23/2021 Are you able to care for yourself independently? Yes [email or web address] Information not available 07/21/2022 Do you have difficulty dressing, bathing, grooming, or toileting? No Information not available 07/21/2022 Do you or have you ever used e-cigarettes or vape? Never used electronic cigarettes [email or web address] Information not available 05/21/2020 What is your exercise level? Occasional walking [email or web address] Information not available 03/05/2020 Mental Status Question Answer Note LastModified by Organization D etails LastModified Time Do you feel stressed (tense, restless, nervous, or anxious, or unable to sleep at night)? [id number] [email or web address] Information not available 02/01/2023 Family History Relationship [...] ICD10 Code Diagnosis IMO Codes Diagnosis Note [id number] Venkat Gotti MD [facility] [address] [address] 10/08/2025 10:54:40 10/08/2025 11:44:42 Threatened miscarriage [id number] O20.0 Z3A.01 09700 Health Concerns Section Related Observation LastModified by Organization Detai ls LastModified Time None Recorded Concern Status LastModified by Organization Details LastModified Time None Recorded Payers Encounter Date Sequence Insurance Name Policy Number Policy Horne Covered Member ID Horne Member ID Guarantor Name 10/08/2025 1 [employer] [id number] Buddy Yusuf [id number] Mariel Yusuf OBGyn Episode No OBEpisode recorded.
--- OUTSIDE RECORDS SUMMARY | 2025-11-11 22:26 | XMS_ITS | Clinical Summary ---
Author Organization [employer] Address [address] [place] [id number] Care Team Providers Care Health Assistant Name Role Phone Unavailable Primary Care Provider Unavailabl e Allergies Active Allergy Reactions Criticality Noted Date Comments Prednisone Rash Low 11/09/2025 Medications metFORMIN (GLUCOPHAGE) 500 mg tablet Take 500 mg by mouth 2 times daily with meals. Active ondansetron (ZOFRAN ODT) 4 mg Tablet, Rapid Dissolve Take 4 mg by mouth every 8 hours as needed for Nausea/Emesis. Dissolve tablet on top of tongue, then swallow with saliva. Active promethazine (PHENERGAN) 25 mg Suppository Insert 1 Suppository (25 mg) by rectum every 12 hours as needed for Nausea/Vomitin g. 14 Suppository 1 2:08 PM [facility] 11/09/20 25 Active metoclopramide HCl (REGLAN) 5 mg tablet Take 5 mg by mouth 4 times daily before meals and at bedtime. 025 Discontinu ed(Alterna te therapy prescribed ) Encounters Date Type Department Care Team Description 11/09/2025 11:18 AM [employer] - 11/09/2025 2:00 PM [facility] Emergency [facility] Obstetrics Emergency Department [address] [place] [address] Kajal Hernandez CNM Hyperemesis gravidarum (Primary Dx) Discharge Disposition: Home or Self Care 11/09/2025 Travel from Last 3 Months Social History Tobacco Use Types Packs/Day Years Used Date Smoking Tobacco: Former Cigarettes Tobacco Cessation:Counseling Given: Not Answered Alcohol Use Standard Drinks/Week Comments Not Currently 0 (1 standard drink = 0.6 oz pur e alcohol) Food Insecurity Answer Date Recorded Do you find you are eating l ess than you should because you can t pay for food? No 11/09/2025 Transportation Needs Answer Date Record ed Have you gone without health care because you didn t have a way to get there? 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 No 2024 Housing Stability Answer Date Recorded Do you worry you won t have a steady place to sleep or struggle to pay rent or mortgage? No 11/09/2025 Utility Needs Answer Date Recorded Do you have difficulty payin g for utility costs (electric, water or gas bills)? No 11/09/2025 Medication Needs Answer Date Recorded Have you skipped taking medi cation due to cost or worry you can t afford new medications? No 11/09/2025 Feeling Safe Answer Date Recorded Are you in a relationship wi th someone who hurts you emotionally and/or physically? No 11/09/2025 Estimated Date of Delivery Comme nts Yes 05/30/2026 Sex and Gender Information Value Date Recorded Sex Assigned at Not on file Legal Sex Female 1:50 PM [employer] Gender Identity Not on file Sexual Orientation Not on file Last Filed Vital Signs Vital Sign Reading Time Taken Comments Blood Pressure 126/59 11/09/2025 1:58 PM [employer] Pulse 104 11/09/2025 1:58 PM [employer] Temperature 37.1 C (98.7 F) 11/09/2025 1:58 PM [employer] Respiratory Rate 16 11/09/2025 1:58 PM [employer] Oxygen Saturation 98% 11/09/2025 1:58 PM [employer] Inhaled Oxygen Concentration - - Weight 79.8 kg (176 lb) 11/09/2025 11:15 AM [employer] Height 157.5 cm (5' 2) 11/09/2025 11:15 AM [employer] Body Mass Index 32.19 11/09/2025 11:15 AM [employer] Plan of Treatment Upcoming Encounters Date Type Department Care Team (Late st Contact Info) Description 12/12/2025 10:00 AM [employer] Ancillary Procedure [facility]. [address] [place] [address] 12/12/2025 10:45 AM [employer] Initial [facility] - [facility]. [address] [place] [address] Pau Gray MD [address] [place] [address] Health Maintenance Due Date Last Done Comments DTAP/TDAP/TD VACCINES (1 - Tdap) 2014 HEPATITIS B VACCINES (1 of 3 - 19+ 3-dose series) 2014 HPV/Cotest (21-29) 2016 INFLUENZA VACCINE (#1) 2025 CERVICAL CANCER SCREENING 2025 HPV/Cotest (30-65) 2025 PAP SMEAR 2025 Preventative Visit- Commercial Completed 02/13/2025 , 10/13/2021 HPV VACCINES (No Doses Required) Completed RSV VACCINE (60+ or ) (No Doses Required) Completed Procedures Procedure Name Priority Date/Time Associated Diagnosis Comments URINALYSIS W/REFLEX MICROSCOPIC Stat 11/09/2025 12:08 PM [employer] COMPREHENSIVE METABOLIC PANEL Stat 11/09/2025 12:08 PM [employer] CBC WITH DIFFERENTIAL Stat 11/09/2025 12:08 PM [employer] POC , URINE Stat 11/09/2025 10:52 AM [employer] from Last 3 Months Results * (ABNORMAL) CBC WITH DIFFERENTIAL (11/09/2025 12:08 PM [employer]) WBC 5.9 4.0 - 9.8 K/uL 11/09/2025 12:35 PM [employer] [facility] RBC 4.73 3.90 - 4.90 M/uL 11/09/2025 12:35 PM [employer] [facility] HEMOGLOBIN 14.1 11.8 - 14.8 g/dL 11/09/2025 12:35 PM [employer] [facility] HEMATOCRIT 41.9 35.5 - 44.0 % 11/09/2025 12:35 PM [employer] [facility] MCV 88.6 82.0 - 99.0 fL 11/09/2025 12:35 PM [employer] [facility] MCH 29.8 27.2 - 32.6 pg 11/09/2025 12:35 PM [employer] [facility] MCHC 33.7 31.5 - 35.5 g/dL 11/09/2025 12:35 PM [employer] [facility] RDW 12.9 11.5 - 14.5 % 11/09/2025 12:35 PM [employer] [facility] RDW-STDEV 42.0 37.1 - 48.7 fL 11/09/2025 12:35 PM [employer] [facility] PLATELETS 221 140 - 350 K/uL 11/09/2025 12:35 PM [employer] [facility] MPV 10.1 9.3 - 12.4 fL 11/09/2025 12:35 PM [employer] [facility] NEUTROPHILS 80 % 11/09/2025 12:35 PM [employer] [facility] LYMPHOCYTES 11 % 11/09/2025 12:35 PM [employer] [facility] MONOCYTES 8 % 11/09/2025 12:35 PM [employer] [facility] EOSINOPHILS 0 % 11/09/2025 12:35 PM [employer] [facility] BASOPHILS 1 % 11/09/2025 12:35 PM [employer] [facility] IMMATURE GRANULOCYTES 0 % 11/09/2025 12:35 PM [employer] [facility] NEUTROPHIL ABSOLUTE 4.77 1.90 - 7.00 K/uL 11/09/2025 12:35 PM [employer] [facility] LYMPHOCYTE ABSOLUTE 0.63(L) 0.70 - 4.50 K/uL 11/09/2025 12:35 PM [employer] [facility] MONOCYTE ABSOLUTE 0.46 0.10 - 1.30 K/uL 11/09/2025 12:35 PM [employer] [facility] EOSINOPHIL ABSOLUTE 0.02 0.00 - 0.70 K/uL 11/09/2025 12:35 PM [facility] [employer] [facility] BASOPHILS ABSOLUTE 0.04 0.00 - 0.20 K/uL 11/09/2025 12:35 PM [facility] [employer] [facility] - . [facility] IMMATURE GRANULOCYTES ABSOLUTE 0.02 0.00 - 0.03 K/uL 11/09/2025 12:35 PM [facility] [employer] [facility] - [facility] Blood Venipuncture / Unknown 11/09/2025 12:08 PM [employer] 11/09/2025 12:17 PM [employer] Kajal Hernandez CNM HEMATOLOGY ORDERABLE S Final Result [facility] [employer] SERVICES [facility] CLIA# [id number] [address] [place] [address] * (ABNORMAL) URINALYSIS WITH REFLEX MICROSCOPIC (11/09/2025 12:08 PM [employer]) COLOR UA Yellow Pale to Dark Yellow 11/09/2025 12:34 PM [facility] [employer] [facility] CLARITY UA Slightly Cloudy(A) Clear 11/09/2025 12:34 PM [facility] [employer] LABORATORY SERVICES [facility]. [facility] SPECIFIC GRAVITY UA 1.023 1.003 - 1.035 11/09/2025 12:34 PM [facility] [employer] [facility]ORY SERVICES [facility]. [facility] PH UA 6.0 5.0 - 8.0 11/09/2025 12:34 PM [facility] [employer] [facility]ORATORY SERVICES [facility]. [facility] LEUKOCYTE ESTERASE UA Negative Negative 11/09/2025 12:34 PM [facility] [employer] [facility]ATORY SERVICES [facility]. [facility] NITRITE UA Negative Negative 11/09/2025 12:34 PM [facility] [employer] LABORATORY SERVICES - . [facility] PROTEIN UA 1+(A) Negative 11/09/2025 12:34 PM [facility] [employer] [facility]ATORY SERVICES [facility]. [facility] GLUCOSE UA Negative Negative 11/09/2025 12:34 PM [facility] [employer] [facility]ORATORY SERVICES [facility]. [facility] KETONES UA 1+(A) Negative 11/09/2025 12:34 PM [facility] [employer] [facility] SERVICES [facility]. [facility] UROBILINOGEN UA 2.0(A) <2.0 mg/dL 12:34 PM [facility] [employer] [facility] BILIRUBIN UA Negative Negative 11/09/2025 12:34 PM [facility] [employer] LABORATORY [facility] BLOOD UA Negative Negative 11/09/2025 12:34 PM [facility] LABORATORY [facility] WBC UA 0-2 0 - 2 /hpf 11/09/2025 12:34 PM [facility] LABORATORY [facility] RBC UA 0-2 0 - 2 /hpf 11/09/2025 12:34 PM [facility] [employer] LABORAT[facility] BACTERIA UA 1+(A) Negative /hpf 11/09/2025 12:34 PM [facility] [employer] [facility] EPITHELIAL CELLS, URINE 0-5 0 - 5 /hpf 11/09/2025 12:34 PM [facility] [employer] [facility] Urine URINE SPECIMEN OBTAINED BY CLEAN CATCH PROCEDURE / Unknown Collection / Unknown 11/09/2025 12:08 PM [employer] 11/09/2025 12:17 PM [employer] Kajal Hernandez CN URINE ORDERABLES Fin al Result [employer] SERVICES [facility] CLIA# [id number] [address] [facility] [place] [address] * (ABNORMAL) COMPREHENSIVE METABOLIC PANEL (11/09/2025 12:08 PM [employer]) SODIUM 136 136 - 145 mmol/L 11/09/2025 1:06 PM [facility] [employer] [facility] POTASSIUM 3.7 3.5 - 5.0 mmol/L 11/09/2025 1:06 PM [facility] [employer] [facility] CHLORIDE 102 98 - 107 mmol/L 11/09/2025 1:06 PM [facility] [employer] [facility] CO2 22 22 - 29 mmol/L 11/09/2025 1:06 PM [facility] [employer] [facility] CALCIUM 9.2 8.6 - 10.2 mg/dL 11/09/2025 1:06 PM [facility] [employer] [facility] BUN 6 6 - 20 mg/dL 11/09/2025 1:06 PM [facility] LABORATORY [facility] CREATININE 0.51 0.51 - 0.95 mg/dL 11/09/2025 1:06 PM [facility] [employer] [facility] GLUCOSE 92 74 - 99 mg/dL 11/09/2025 1:06 PM [facility] TOTAL PROTEIN 7.0 6.7 - 8.6 g/dL 11/09/2025 1:06 PM [facility] [employer] [facility] ALBUMIN 4.3 3.5 - 5.2 g/dL 11/09/2025 1:06 PM [facility] [employer] [facility] BILIRUBIN TOTAL 0.7 0.0 - 1.2 mg/dL 11/09/2025 1:06 PM [facility] [employer] [facility] ALKALINE PHOSPHATASE 35 35 - 104 U/L 11/09/2025 1:06 PM [facility] [employer] [facility] AST 34(H) <33 U/L 11/09/2025 1:06 PM [facility] [employer] [facility] Comment:Hemolysis present. R esult may be falsely elevated. ALT 47(H) <34 U/L 11/09/2025 1:06 PM [facility] [employer] [facility] GFR >60 >=60 mL/min/1.7 3 sq meter 11/09/2025 1:06 PM [facility] [employer] [facility] Comment:eGFR calculated with 2020 CKD-EPI equation. Vegetarian diet, extremely high or low muscle mass, and may affect results. Cystatin C with Glomerular Filtration Rate is a suitable alternative for these patients. ANION GAP 12 8 - 16 mmol/L 11/09/2025 1:06 PM [facility] [employer] [facility] Blood Venipuncture / Unknown 11/09/2025 12:08 PM [employer] 11/09/2025 12:17 PM [facility] - 11/09/2025 1:06 PM [facility] Samples containing indocyanine green cause interferences on Total and/or Direct Bilirubin and must not be measured. Kajal Hernandez [facility] CHEMISTRY ORDERABLES Final Result [facility] [employer] [id number] [address] [place] [address] * (ABNORMAL) POC , URINE (11/09/2025 10:52 AM [employer]) HCG QUAL URINE Positive(A ) Negative 11/09/2025 10:52 AM [employer]ES [facility] [employer] [facility] Urine 11/09/2025 10:5 2 AM [employer] 11/09/2025 10:56 AM [employer] Narrative [facility] [employer] [facility] - 11/09/2025 10:52 AM [employer] Positive : Result is greater than or equal to 25 mIU/mL Negative: Result is less than 25 mIU/mL Invalid: Result is borderline or indeterminate,send to lab for serum test methodology. us Interface Provider Poct POINT OF CARE TESTING Fi nal Result Performing Organization Address City/State/[facility] Co de Phone Number [facility] [employer] [facility] [id number] [address] [place] [address] from Last 3 Months Insurance REPLACED BY [facility] [employer]
--- OUTSIDE RECORDS SUMMARY | 2025-11-11 22:26 | XMS_ITS | Continuity of Care Document ---
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 Plan of Treatment Reminders Order Date Submit Date Provider Last Modified By Organization Details Last Modified Time Details Appointments U/S OB FIRST LOOK 2024 10:30A M ULTRASOUND Not available Not available Not available OB NEW 2024 11:00A M Rene GOTTI MD Not available Not available Not available Lab None record ed. Referral None record ed. Procedures None record ed. Surgeries None record ed. Imaging None record ed. Medication Orders None record ed. Patient TargetsNo targets recorded. Patient InstructionsNo instructions [...] t Abnor mal: No Resul ting Lab: [facility] [address] [facility] [address] Tel: CULTU RE ----- ----- ----- --- Cultu re resul t (>=3 organ isms prese nt) indic ates possi ble conta minat ion. Repea t cultu re if sympt oms indic ate. Not Available [facility] (Lab) [address], [place], [address], 10/10/2025 08:41:21 10/08/20 25 10/08/2025 US, obste tric, trans vagin al No observ ation record ed. [email or web address] [place] [address], [place], [address], 10/08/2025 15:50:26 10/08/20 25 10/08/2025 US, obste tric, trans vagin al No observ ation record ed. [email or web address] Nydia [address], [place], [address], 10/08/2025 20:28:04 10/15/20 25 10/15/2025 US, obste tric, trans vagin al No observ ation record ed. [email or web address] [place] [address], [place], [address], 10/15/2025 14:43:23 10/15/20 25 10/15/2025 US, obste tric, trans vagin al No observ ation record ed. [email or web address] Nydia [address], [place], [address], 10/15/2025 15:11:39 10/29/20 25 10/29/2025 US, obste tric, 1st trime ster No observ ation record ed. [email or web address] Nydia [address], [place], [address], 10/29/2025 17:12:57 Result Notes None recorded. Problems Name Problem SNOMED Code Status Onset Date Resolution Date Notes Provider Name and Address Organization Details Recorded Time Gestatio nal diabetes mellitus class A2 10468774 Completed 5u NPH AM, 5u Lispro Lunch, 15u NPH @ [facility] 03/31 [facility] Rosa Elena Weber [place], [place] - [facility] 3 14:52:11 Cholesta sis [id number] Completed 07/07 - Per Scarlett with M[facility] - she spoke with Dr. Dangelo and to cont ursodiol and anticipa te/assum e cholesta sis based on presenta tion. Rpt labs next week before [facility] appt on 07/21. Might recommen d 37-38wk alena José [facility] 3 14:52:12 Amenorrh ea [id number] Completed 201409/23/2021 AMENORRH EA;Pract ice ID: 0001 Emma [facility] 1 10:28:02 Speciali zed medical examinat ion Completed 201409/23/2021 Routine gynecolo gical examinat ion;Prac dante ID: 0001 [facility] 1 10:31:25 Pregnanc y test positive [id number] Completed 201409/23/2021 Positive Pregnanc y Test;Pra ctice ID: 0001 [facility] 10:30:38 Uterine size for dates discrepa ncy [id number] Completed 201409/23/2021 UTERINE SIZE MEG-ANTE PAR;Prac dante ID: 0001 Emma Cordova [facility], [facility] 1 10:31:47 Mild hypereme sis-not delivere d [id number] Completed 201409/23/2021 Hypereme sis gravidar um, antepart um Mild;Pra ctice ID: 0001 Emma [facility] 1 10:30:08 Nausea and vomiting [id number] Completed 201409/23/2021 Nausea with vomiting ;Practic e ID: 0001 Emma Cordova [facility], [facility] 1 10:30:09 Syncope and collapse [id number] Completed 201409/23/2021 Syncope and collapse ;Practic e ID: 0001 Emma conrad [facility] 10:31:31 Antenata l screenin g Completed 201409/23/2021 ANTENATA L SCREENIN G NEC;Prac dante ID: 0001 Emma Cordova [place] [facility] 10:28:04 Primigra parisa [id number] Completed 201409/23/2021 Supervis ion of normal first pregnanc y;Practi ce ID: 0001 Emma [facility] 10:30:56 anatomy study Completed 201409/23/2021 [facility] ANAT SURVEY;P ractice ID: 0001 [facility] 10:29:10 Complica tion of pregnanc y, childbir th and/or puerperi um [id number] Completed 201409/23/2021 OTH CURR COND-ANT EPARTUM; Practice ID: 0001 [facility] 10:28:17 Pregnanc y, childbir th and puerperi um finding Completed 201409/23/2021 Encntr for suprvsn of normal first preg, third trimeste r;Practi ce ID: 0001 [facility] 10:30:41 Urinary tract infectio us disease [id number] Completed 201409/23/2021 Urinary tract infectio n, site not specifie d;Practi ce ID: 0001 Emma Cordova [place] [facility] 10:31:42 Eruption [id number] Completed 201409/23/2021 Rash;Rec orded Elsewher e: No Locat ion: Curtis vargas [facility] S ource: [facility] [employer] doris: N Practi ce ID: 0001 Roel lable Time: 03:30:00 PM Emma conrad, [facility] 1 10:28:58 Pregnanc y, childbir th and puerperi um finding Completed 201409/23/2021 Oth pregnanc y related conditio ns, third trimeste r;Practi ce ID: 0001 Emma conrad, [facility] 1 10:28:13 Noninfec tious enteriti s of intestin e Completed 201409/23/2021 Gastroen teritis; Recorded Elsewher e: No [facility] [facility] doris: N Practi ce ID: 0001 Roel lable Time: 02:30:00 PM Emma conrad, [facility] 1 10:30:00 prematur e rupture of membrane s [id number] Completed 201409/23/2021 Pretrm evelin ROM, unsp time betw rupt and onst labr, 3rd tri;Prac dante ID: 0001 Emma conrad, [facility] 1 10:30:54 Lochia finding Completed 201509/23/2021 Encounte r for routine postpart um follow-u p;Record ed Elsewher e: No Locat ion: Edith theodore [facility] S ource: [facility] [employer] doris: N Practi ce ID: 0001 Roel lable Time: 01:00:00 PM Emma conrad, [facility] 1 10:30:[address] Concept Completed 201509/23/2021 Encounte r for surveill ance of other contrace ptives;R ecorded Elsewher e: No Locat ion: Aliyahbrynn theodore [facility] S ource: [facility] [employer] doris: N Practi ce ID: 0001 Roel lable Time: 01:00:00 PM Emma Brittontz [place] [facility] 1 10:31:20 Sexually transmit car infectio us disease [id number] Completed 201509/23/2021 STD;Romulo rded Elsewher e: No Locat ion: [facility] S ource: [facility] doris: N Jairrodney ce ID: 0001 Roel lable Time: 10:30:00 AM Emma Brittontz [place] [facility] 1 10:31:01 Uses combined oral contrace ption [id number] Completed 201609/23/2021 Encounte r for initial prescrip tion of contrace ptive pills;Re corded Elsewher e: No Locat ion: [facility] S ource: [facility] doris: Marjorie Ab ce ID: 0001 Roel lable Time: 08:30:00 AM Emma Cordova [place] [facility] 1 10:28:15 Procedur e Completed 201609/23/2021 Encounte r for checking , reinsert ion or removal of implanta ble subderma l contrace ptive;Re corded Elsewher e: No Locat ion: [facility] S ource: [facility] doris: Marjorie Adamrodney ce ID: 0001 Roel lable Time: 08:30:00 AM Emma Cordova [place] [facility] 1 10:30:58 Infectio n screenin g Completed 201609/23/2021 Encounte r for screenin g for oth infec/pa rastc diseases ;Recorde d Elsewher e: No Locat ion: [facility] S ource: [facility] doris: Marjorie Adamrodney ce ID: 0001 Roel lable Time: 11:00:00 AM Emma Cordova [place] [facility] 1 10:29:58 Acute vaginiti s [id number] Completed 201609/23/2021 Acute vaginiti s;Record ed Elsewher e: No Locat ion: [facility] S ource: [facility] doris: N Practi ce ID: 0001 Roel lable Time: 11:00:00 AM Emma conrad, [facility] 1 10:28:00 Vaginola bial hernia Completed 201609/23/2021 Other specifie d noninfla mmatory disorder s of vagina;R ecorded Elsewher e: No Locat ion: [facility] S ource: [facility] doris: N Practi ce ID: 0001 Roel lable Time: 11:00:00 AM Emma conrad, [facility] 1 10:31:49 Counseli ng for harmful pattern of substanc e use Completed 201609/23/2021 Tobacco abuse counseli ng;Recor ded Elsewher e: No Locat ion: [facility] S ource: [employer] doris: N Practi ce ID: 0001 Roel lable Time: 11:00:00 AM Emma conrad, [facility] 1 10:31:[address] Concept Completed 201609/23/2021 Encntr for general adult medical exam w/o abnormal findings ;Recorde d Elsewher e: No Locat ion: [facility] S ource: [facility] doris: N Practi ce ID: 0001 Roel lable Time: 11:00:00 AM Emma conrad, [facility] 1 10:31:16 Increase d frequenc y of urinatio n [id number] Completed 201609/23/2021 Frequenc y of micturit ion;Romulo rded Elsewher e: No Locat ion: [facility] S ource: [facility] doris: N Practi ce ID: 0001 Roel lable Time: 11:15:00 AM Emma conrad [facility] 1 10:29:56 Pregnanc y detectio n examinat ion Completed 201709/23/2021 Encounte r for pregnanc y test, result positive ;Recorde d Elsewher e: No Locat ion: [facility] theodore [facility] S ource: E[employer] doris: N Practi ce ID: 0001 Roel lable Time: 02:15:00 PM Emma Cordova [place], [facility] 1 10:30:18 Finding of regulari ty of menstrua l cycle Completed 201709/23/2021 Irregula r bleeding ;Recorde d Elsewher e: No Locat ion: [facility] N Jairti ce ID: 0001 Roel lable Time: 02:15:00 PM Emma conrad, [facility] 1 10:29:18 Cyst of ovary Completed 201709/23/2021 Unspecif ied ovarian cyst, unspecif ied side;Rec orded Elsewher e: No [facility]at [facility] S our[facility]: [facility]: N Practi ce ID: 0001 Roel lable Time: 11:00:00 AM Emma Cordova [place], [facility] 1 10:28:44 Syphilis test finding [id number] Completed 201709/23/2021 Encntr screen for infectio ns w sexl mode of transmis s;Record ed Elsewher e: No [facility]at [facility]: [facility] [employer] doris: N Practi ce ID: 0001 Roel lable Time: 11:00:00 AM Emma Cordova [place], [facility] [address] 10:31:[address] Concept Completed 201709/23/2021 Encntr for box strapper exam (general ) (routine ) w/o abn findings ;Recorde d Elsewher e: No Locat ion: [facility] S ource: [facility] doris: N Jairti ce ID: 0001 Roel lable Time: 11:00:00 AM Emma conrad, [facility] 10:31:18 Body mass index 30+ - obesity [id number] Completed 201709/23/2021 Body mass index (BMI) 32.0-32. 9, adult;Re corded Elsewher e: No [facility]at [facility] S ource: [facility] doris: N Jairti ce ID: 0001 Roel lable Time: 11:00:00 AM Emma conrad, [facility] 10:28:11 Finding of pattern of menstrua l cycle Completed 201709/23/2021 Excessiv e and frequent menstrua tion with irregula r cycle;Re corded Elsewher e: No [facility]at [facility] S ource: [facility] doris: N Jairti ce ID: 0001 Roel lable Time: 01:00:00 PM Emma conrad, [facility] 10:29:16 Mammogra phic calcific ation of breast [id number] Completed 201709/23/2021 Mammogra phic calcifcn found on diagnost ic imaging of breast;R ecorded Elsewher e: No [facility]at [facility] S ource: [facility] doris: N Ab ce ID: 0001 Roel lable Time: 01:00:00 PM Emma conrad, [facility] 10:30:05 Pain in female genitali a Completed 201709/23/2021 Dysmenor jannette, unspecif ied;Romulo rded Elsewher e: No Locat ion: [facility] S ource: [facility] doris: N Jairti ce ID: 0001 Roel lable Time: 01:00:00 PM Emma conrad [facility] 1 10:30:13 Depressi ve disorder [id number] Completed 201709/23/2021 Major depressi ve disorder , single episode, unspecif ied;Romulo rded Elsewher e: No Locat ion: [facility] S ource: [facility] doris: N Jairti ce ID: 0001 Roel lable Time: 09:00:00 AM Emma Cordova [facility], [facility] [address] 10:28:[address] Concept Completed 201709/23/2021 Anxiety disorder , unspecif ied;Romulo rded Elsewher e: No Locat ion: [facility] S [facility]: [facility]: N Jairti ce ID: 0001 Roel lable Time: 09:45:00 AM Emma Cordova [facility], [facility] 1 10:31:09 Pregnanc y test negative [id number] Completed 201709/23/2021 Encounte r for pregnanc y test, result negative ;Recorde d Elsewher e: No Locat ion: [facility] S ource: [facility] [employer] doris: N Jairti ce ID: 0001 Roel lable Time: 09:45:00 AM Emma Cordova [facility], [facility] 1 10:30:36 Blood leukocyt e number above referenc e range [id number] Completed 201709/23/2021 Elevated white blood cell count, unspecif ied;Romulo rded Elsewher e: No Locat ion: [facility] S ource: [facility] [employer] doris: N Jairti ce ID: 0001 Roel lable Time: 11:45:00 AM Emma Cordova [place], [facility] 10:29:54 Pelvic and perineal pain [id number] Completed 201709/23/2021 Pelvic and perineal pain;Rec orded Elsewher e: No Locat ion: [facility] S ource: [facility] doris: N Jairti ce ID: 0001 Roel lable Time: 11:15:00 AM Emma Tasha [place], [facility] 1 10:30:16 Dysuria [id number] Completed 201709/23/2021 Dysuria; Recorded Elsewher e: No Locat ion: Curtis vargas [facility] S ource: [facility] doris: N Practi ce ID: 0001 Roel lable Time: 11:45:00 AM Emma Tasha [place], [facility] 1 10:28:56 Exposure to sexually transmis sible disorder Completed 201709/23/2021 Contact w and exposure to infect w a sexl mode of transmis s;Practi ce ID: 0001 Emma Cordova [place], [facility] 10:29:00 Gestatio n less than 9 weeks [id number] Completed 201809/23/2021 Less than 8 weeks gestatio n of pregnanc y;Record ed Elsewher e: No Locat ion: Curtis [facility] S ource: [facility] doris: N Practi ce ID: 0001 Roel lable Time: 08:15:00 AM Emma Cordova [place], [facility] 10:29:22 Situatio n with explicit context Completed 201809/23/2021 Suprvsn of preg w poor reprodct v or obstet hx, first tri;Romulo rded Elsewher e: No Locat ion: Curtis [facility] S ource: [facility] [employer] doris: N Practi ce ID: 0001 Roel lable Time: 08:15:00 AM Emma conrad, [facility] 1 10:31:07 Threaten ed miscarri age [id number] Completed 201809/23/2021 Threaten ed ;Recorde d Elsewher e: No Locat ion: Curtis vargas [facility] S ource: [facility] doris: N Practi ce ID: 0001 Roel lable Time: 10:30:00 AM Emma Cordova [place] [facility] 10:31:38 Blighted ovum [id number] Completed 201809/23/2021 Blighted ovum and nonhydat idiform mole;Rec orded Elsewher e: No Locat ion: Aliyahbrynn [facility] S ource: [facility] [employer] doris: Marjorie Berger ce ID: 0001 Roel lable Time: 10:30:00 AM Emma Cordova [place], [facility] 10:28:08 Finding of contents of cervix [id number] Completed 201809/23/2021 Weeks of gestatio n of pregnanc y not specifie d;Record ed Elsewher e: No Locat ion: [facility] S ource: [facility] doris: Marjorie Berger ce ID: 0001 Roel lable Time: 10:30:00 AM Emma conrad, [facility] 10:29:13 Normal pregnanc y in multigra parisa [id number] 87547 Completed 201809/23/2021 Encounte r for suprvsn of normal pregnanc y, second trimeste r;Record ed Elsewher e: No Locat ion: [facility] S ource: [facility] [employer] doris: Marjorie Berger ce ID: 0001 Roel lable Time: 05:00:00 PM Emma conrad [facility] 1 10:30:11 Antenata l screenin g for malforma tion Completed 201809/23/2021 Encounte r for antenata l screenin g for malforma tions;Re corded Elsewher e: No [facility] S ource: [facility] [employer] doris: Marjorie Berger ce ID: 0001 Roel lable Time: 10:30:00 AM Emma conrad [facility] 1 10:28:06 Gestatio n period, 20 weeks [id number] Completed 201809/23/2021 20 weeks gestatio n of pregnanc y;Record ed Elsewher e: No Locat ion: Curtis vargas [facility] S ource: [facility] doris: N Jairti ce ID: 0001 Roel lable Time: 11:30:00 AM Emma conrad, [facility] 10:29:24 Finding of trunk structur e Completed 201909/23/2021 Oth diseases and conditio ns compl preg/chl dbrth;Re corded Elsewher e: No [facility] S ource: [facility] [employer] doris: N Jairti ce ID: 0001 Roel lable Time: 03:15:00 PM Emma conrad, [facility] 10:31:40 Gestatio n period, 29 weeks [id number] Completed 201909/23/2021 29 weeks gestatio n of pregnanc y;Record ed Elsewher e: No Locat ion: Curtis vargas [facility] S ource: [facility] doris: N Jairti ce ID: 0001 Roel lable Time: 03:15:00 PM Emma conrad, [facility] 10:29:27 Gestatio n period, 30 weeks [id number] Completed 201909/23/2021 30 weeks gestatio n of pregnanc y;Record ed Elsewher e: No Locat ion: Curtis vargas [facility] S ource: [facility] [employer] doris: N Practi ce ID: 0001 Roel lable Time: 10:45:00 AM Emma conrad [facility] 10:29:29 Uterine size for dates discrepa ncy Completed 201909/23/2021 Uterine size-neeta e discrepa ncy, second trimeste r;Record ed Elsewher e: No Locat ion: Curtis vargas [facility] S ource: [facility] [employer] doris: N Practi ce ID: 0001 Roel lable Time: 10:45:00 AM Emma conrad, [facility] 10:31:[address] Concept Completed 201909/23/2021 Decrease d movement s, third trimeste r, unsp;Rec orded Elsewher e: No Locat ion: Curtis vargas [facility] S ource: [facility] doris: N Jairti ce ID: 0001 Roel lable Time: 11:30:00 AM Emma conrad, [facility] 10:31:14 Prematur e rupture of membrane s [id number] Completed 201909/23/2021 Evelin ROM, 7th0 betw rupt & onst labr, unsp weeks of gest;Pra ctice ID: 0001 Emma conrad, [facility] 10:30:51 Gestatio n period, 32 weeks [id number] Completed 201909/23/2021 32 weeks gestatio n of pregnanc y;Record ed Elsewher e: No Locat ion: Curtis vargas [facility] S ource: [facility] doris: N Jairti ce ID: 0001 Roel lable Time: 11:00:00 AM Emma conrad, [facility] 10:29:30 Gestatio n period, 33 weeks [id number] Completed 201909/23/2021 33 weeks gestatio n of pregnanc y;Record ed Elsewher e: No Locat ion: Curtis vargas [facility] S ource: [facility] doris: N Practi ce ID: 0001 Roel lable Time: 03:00:00 PM Emma conrad, [facility] 10:29:32 Gestatio n period, 34 weeks [id number] Completed 201909/23/2021 34 weeks gestatio n of pregnanc y;Record ed Elsewher e: No Locat ion: Curtis vargas [facility] S ource: [facility] doris: N Practi ce ID: 0001 Roel lable Time: 11:00:00 AM Emma conrad, [facility] 10:29:34 False labor before 37 complete d weeks of gestatio n [id number] Completed 201909/23/2021 False labor before 37 complete d weeks of gest, third tri;Prac dante ID: 0001 Emma conrad, [facility] 10:29:08 Gestatio n period, 35 weeks [id number] Completed 201909/23/2021 35 weeks gestatio n of pregnanc y;Record ed Elsewher e: No Locat ion: [facility] S ource: [facility] doris: N Practi ce ID: 0001 Roel lable Time: 11:30:00 AM Emma conrad, [facility] 10:29:36 Gestatio nal diabetes mellitus [id number] Completed 201909/23/2021 Gestatio nal diabetes in pregnanc y, insulin controll ed;Recor ded Elsewher e: No Locat ion: [facility] N Practi ce ID: 0001 Roel lable Time: 10:30:00 AM Emma conrad, [facility] 10:29:52 Gestatio n period, 36 weeks [id number] Completed 201909/23/2021 36 weeks gestatio n of pregnanc y;Practi ce ID: 0001 Emma conrad, [facility] 10:29:38 Pregnanc y-induce d hyperten bo Completed 201909/23/2021 Gestatio nal htn w/o signific ant proteinu anais, third trimeste r;Practi ce ID: 0001 Emma conrad, [facility] 10:30:49 Gestatio n period, 37 weeks [id number] Completed 201909/23/2021 37 weeks gestatio n of pregnanc y;Record ed Elsewher e: No Locat ion: [facility] S ource: [facility] doris: N Practi ce ID: 0001 Roel lable Time: 10:30:00 AM Emma conrad [facility] 10:29:40 False labor at or after 37 complete d weeks of gestatio n [id number] Completed 201909/23/2021 False labor at or after 37 complete d weeks of gestatio n;Practi ce ID: 0001 Emma conrad, [facility] 10:29:06 Gestatio n period, 38 weeks [id number] Completed 201909/23/2021 38 weeks gestatio n of pregnanc y;Record ed Elsewher e: No [facility] S ource: [facility] [employer] doris: N Practi ce ID: 0001 Roel lable Time: 10:30:00 AM Emma conrad [facility] 10:29:41 Term pregnanc y delivere d [id number] Completed 201909/23/2021 Encounte r for full-ter m uncompli cated delivery ;Practic e ID: 0001 Emma conrad, [facility] 10:31:36 Single live from singleto n pregnanc y [id number] Completed 201909/23/2021 Single live ;Pr actice ID: 0001 Emma conrad, [facility] 10:31:03 Gestatio n period, 39 weeks [id number] Completed 201909/23/2021 39 weeks gestatio n of pregnanc y;Practi ce ID: 0001 Emma conrad, [facility] 1 10:29:43 Past pregnanc y history of gestatio nal diabetes mellitus [id number] Active 2022 Tiffanie Flores MD [address], [place], [address], [facility] 3 19:36:59 Pregnanc y [id number] Completed 202208/16/2023 José conrad, [facility] 3 14:52:19 Gestatio nal diabetes mellitus [id number] Completed 2022 h/o gdm2A. Checking BS QID, serial growth, antenata l testing José conrad, [facility] 3 14:52:11 Problem Notes None recorded. Procedures Surgical History Date Name Laterality Status Provider Name and Address Organization Details Recorded Time 06/07/20 25 Dilation and Curettage completed Emily Millard [facility] 06/18/2025 14:42:30 02/14/20 25 Date of Last Pap Smear completed Tiffanie Boothe [facility] 06/01/2025 12:11:46 08/30/20 24 IUD Removal completed Maria T Carlton CNM [address], [place], [address], [facility] 08/31/2024 13:59:56 08/04/20 24 IUD Insertion completed Maria T Carlton CNM [address], [place], [address], [facility] 08/05/2024 08:44:48 07/29/20 22 Hysteroscopy completed Maria T Carlton CNM [address], [place], [address], [facility] 07/29/2022 08:52:41 07/29/20 22 Hysteroscopy completed Emma Cordova [facility] 07/29/2022 08:35:27 07/21/20 22 [facility]UD Removal [facility] 07/21/2022 12:21:30 04/17/20 20 IUD Insertion completed [facility] 04/17/2020 12:09:21 03/20/20 20 IUD Insertion completed [facility] 03/20/2020 12:11:51 11/22/19 18 Appendectomy completed [facility] 10/01/2020 19:16:40 11/22/19 14 completed Kayla Fournier [facility] 10/08/2021 16:13:03 11/22/19 14 colonoscopy completed [facility] 09/23/2021 10:34:09 11/22/19 13 Dilation and curettage completed [facility] 09/23/2021 10:34:16 11/22/19 00 tonsillectomy completed [facility] 09/23/2021 10:34:23 Imaging Results None recorded. Procedure Notes None recorded. Medical Equipment None Reported. Allergies Allergen ID Allergen Name Allergen Category Reaction Reaction Severity Criticality Documentation Date Start Date Code Code System Note Provider Name and Address Organization Details Recorded Time prednison e medicatio n Not available Not available Not available 01/05/2023 8640 RxNorm Emma conrad [facility] 3 10:49:28 2666 amoxicill in medicatio n Not available Not available Not available 10/01/2020 723 RxNorm Emma conrad [facility] 1 10:27:49 39073 aluminum aspirin Not available Not available Not available Not available 10/08/20252020 611 RxNorm unrec ogsam ed react ion (text : Other , code: 70476 07) (from [facility]) Not Available carlos - External Data Service - prod 5 09:39:58 91 aspirin medicatio n Not available Not available Not available 03/04/2020 1191 RxNorm [facility] 0 17:51:36 Medications Name Sig Start [...] Prescrib ed Elsewher e: No Locat ion: [facility] M odify By: raul z Ethel correa DateTime : 04/23/20 15 11:17:56 AM [...] Elsewher e: No Locat ion: [facility] M odify By: raul z Encoun ter [...] Prescrib ed Elsewher e: No Locat ion: [facility] M odify By: annalisa turner DateTime : 03/29/20 [...] Prescrib ed Elsewher e: No Locat ion: [facility] odify By: [email or web address] Vargas [email or web address] DateTime : 07/21/20 18 04:08:38 PM Not Available Not Available Not Available dicyclomi ne 20 mg tablet 10/01 completed Not Available Not Available Not Available betametha sone valerate 0.1 % topical cream apply by topical route every day a thin layer to the affected area(s) 02/01 completed Prescrib ed Elsewher e: No Locat ion: [facility] odify By: [email or web address] z Encoun ter DateTime [...] Prescrib ed Elsewher e: No Locat ion: [facility] odify By: annalisa turner DateTime : [...] Prescrib ed Elsewher e: No Locat ion: [facility] odify By: jill palomo DateTime : 04/03/20 [...] Prescrib ed Elsewher e: No Locat ion: [facility] odify By: raul Davenport ter DateTime : 09/02/20 09:21:34 AM Not Available Not Available Not Available norethind jatinder (contrace ptive) 0.35 mg tablet TAKE 1 TABLET BY MOUTH EVERY DAY 02/13 completed Not Available Not Available Not Available Zoloft 25 mg tablet take 1 tablet by oral route every day 03/29 completed Prescrib ed Elsewher e: No Locat ion: [facility] odify By: raul z Encoun ter [...] ed Elsewher e: No Locat ion: [facility] odify By: annalisa turner DateTime : 09/09/20 [...] Prescrib ed Elsewher e: No Locat ion[facility] odify By: [email or web address] Theodore stacia DateTime : 08/01/20 02:08:52 PM [...] Elsewher e: No Locat ion: [facility] odify By: lexi correa DateTime : [...] Elsewher e: No Locat ion: [facility] odify By: [email or web address] Dharmesh turner DateTime : 05/28/20 11:15:00 AM Not Available Not Available Not Available Humulin N NPH U-100 Insulin KwikPen 100 unit/mL (3 mL) subcutane ous 09/03 completed Not Available Not Available Not Available Fora H76-H44-J 10-D20 strips-la ncets 30 gauge combo pack checking BS QID fasting and 1hr pp 07/21 completed Prescrib ed Elsewher e: No Locat ion: [facility] odify By: rubi turner DateTime : [...] Junie e: No Locat ion: [facility] odify By: annalisa turner DateTime : [...] Updated DateTime 10/29/2025 157.48 cm 33.7 kg/m2 30445 g 124/80 mm[Hg] Xochilt Tubbs [facility] 10/29/2025 11:25:23 Social History Question Answer Notes LastModified by Organizat ion Details LastModified Time Tobacco Smoking Status Former Smoker Emma conrad, [facility] 10/01/2020 15:14:21 If You Are , What Was Your Level Of Alcohol Consumption Prior To ? Occasional [email or web address] Information not available 02/01/2023 Are You Blind Or Do You Have Difficulty Seeing? No [email or web address] Information not available 09/23/2021 What Is Your Level Of Caffeine Consumption? Occasional [email or web address] Information not available 10/29/2025 In The 14 Days Before Symptom Onset, Have You Had Close Contact With A Laboratory-confir med COVID-19 While That Case Was Ill? No [email or web address] Information not available 02/01/2023 In The 14 Days Before Symptom Onset, Have You Had Close Contact With A Person Who Is Under Investigation For COVID-19 While That Person Was Ill? No [email or web address] Information not available 02/01/2023 Have You Been To An Area Known To Be High Risk For COVID-19? No [email or web address] Information not available 02/01/2023 Are You Deaf Or Do You Have Serious Difficulty Hearing? No [email or web address] Information not available 09/23/2021 What Type Of Diet Are You Following? REGULAR Information not available 09/23/2021 What Is The Highest Grade Or Level Of School You Have Completed Or The Highest Degree You Have Received? [id number] [email or web address] Information not available 10/29/2025 What Was The Date Of Your Most Recent Tobacco Screening? 08/30/2024 [email or web address] Information not available 08/30/2024 Do You Use Protection During Sex? No [email or web address] Information not available 10/29/2025 Do You Use Your Seat Belt Or Car Seat Routinely? Yes [email or web address] Information not available 02/01/2023 Are You Sexually Active? Yes [email or web address] Information not available 10/29/2025 Do You Have Smoke And Carbon Monoxide Detectors In Your Home? Yes [email or web address] Information not available 02/01/2023 How Much Tobacco Do You Smoke? No [email or web address] Information not available 05/21/2020 Do You Use Sunscreen Routinely? Yes [email or web address] Information not available 02/01/2023 Has Tobacco Cessation Counseling Been Provided? No [email or web address] Information not available 02/01/2023 Do You Have Difficulty Walking Or Climbing Stairs? No [email or web address] Information not available 07/21/2022 Sex: Unknown Functional Status Question Answer Note LastModified by Organizat ion Details LastModified Time Do you use any illicit or recreational drugs? No [email or web address] Information not available 02/01/2023 Do you or have you ever used any other forms of tobacco or nicotine? No [email or web address] Information not available 02/01/2023 What is your level of alcohol consumption? None [email or web address] Information not available 02/01/2023 Do you or have you ever used smokeless tobacco? Never used smokeless tobacco Information not available 05/21/2020 Are you currently employed? No Information not available 10/29/2025 Are you able to walk independently without assistance or assistive devices? YESWOREST [email or web address] Information not available 09/23/2021 Are you able to care for yourself independently? Yes Information not available 07/21/2022 Do you have difficulty dressing, bathing, grooming, or toileting? No [email or web address] Information not available 07/21/2022 Do you or have you ever used e-cigarettes or vape? Never used electronic cigarettes Information not available 05/21/2020 What is your exercise level? Occasional walking jgumber Information not available 03/05/2020 Mental Status Question Answer Note LastModified by Organization D etails LastModified Time Do you feel stressed (tense, restless, nervous, or anxious, or unable to sleep at night)? [id number] [email or web address] Information not available 02/01/2023 Family History Relationship [...] ICD10 Code Diagnosis IMO Codes Diagnosis Note [id number] Venkat Gotti MD [facility] [address] [address] 10/08/2025 10:54:40 10/08/2025 11:44:42 Threatened miscarriage [id number] O20.0 Z3A.01 66804 [id number] CLAUDETTE SINGH MD [facility] [address],[place] [address] 10/15/2025 13:26:38 10/15/2025 13:50:58 Complication occurring during [id number] O99.891 Z3A.01 [id number] Venkat Gotti MD [facility] [address],[place] [address] 10/15/2025 13:27:10 10/15/2025 14:59:28 Acute urinary tract infection [id number] N39.0 724704 Gestationa l diabetes mellitus 54487613 O24.410 [id number] this patient is a 30-year-ol d female [...] 20 minutes on her care in total. [id number] CLAUDETTE SINGH MD [facility] [address],[place] [address] 10/29/2025 10:23:11 10/29/2025 11:05:20 [id number] [facility] [address],[place] [address] 10/29/2025 10:58:16 10/29/2025 13:36:47 Amenorrhea [id number] N91.2 99894 take pnv daily, pap up to datediscus sed with dr. courtney roberts 4 units [facility] have rn call next week for blood sugars, glucose log [id number] /11/25ok for excedrin migrainef/ u 3 weeks new ob and first look Health Concerns Section Related Observation LastModified by Organization Detai ls LastModified Time None Recorded Concern Status LastModified by Organization Details LastModified Time None Recorded Payers Encounter Date Sequence Insurance Name Policy Number Policy Horne Covered Member ID Horne Member ID Guarantor Name 10/29/2025 1 [employer] [id number] Buddy Yusuf [id number] Mariel Yusuf Notes Date Note Type Note Provider Name a nd Address Organization Details Recorded Time 10/29/2025 text/html ROS as noted in the HPI hx recent miscarriage, now amenorrhea, [place] todayhx gdm, quiroz started checking blood sugars, all fastings elevated Maria T Carlton CNM [address], [place], [address], [place] [facility] 10/29/2025 13:29:56 OBGyn Episode No OBEpisode recorded.
--- OUTSIDE RECORDS SUMMARY | 2025-11-11 22:27 | XMS_ITS | Continuity of Care Document ---
Author Organization [facility] Address [address] [place] [address] Care Team Providers Care Environmental Geologist Name Role Phone ZHOU SWAIN Primary Care Provider [phone] Assessment No assessment recorded. Plan of Treatment [...] Orders OneTouc h Ultra Test strips 2024 [facility]Pharmacy #[id number], [address] [place], [address], 10/15/2025 14:52:18 Macrobi d 100 mg capsule 2024 025 [facility]Pharmacy #[id number], [address] [place], [address], 10/29/2025 11:25:47 Patient TargetsNo targets recorded. Patient [...] Resul ting Lab: [facility] [address] [facility] [address] Tel: CULTU RE ----- ----- ----- --- Cultu re resul t (>=3 organ isms prese nt) indic ates possi ble conta minat ion. Repea t cultu re if sympt oms indic ate. Not Available [facility] (Lab) [address], [place], [address], 10/10/2025 08:41:21 10/08/20 25 10/08/2025 US, obste tric, trans vagin al No observ ation record ed. [email or web address] [place] [address], [place], [address], 10/08/2025 15:50:26 10/08/20 25 10/08/2025 US, obste tric, trans vagin al No observ ation record ed. [email or web address] [address] [address] [address], [place], [address], 10/08/2025 20:28:04 10/15/20 25 10/15/2025 US, obste tric, trans vagin al No observ ation record ed. [email or web address] [address], [place], [address], 10/15/2025 14:43:23 10/15/20 25 10/15/2025 US, obste tric, trans vagin al No observ ation record ed. [email or web address] [address] [address], [place], [address], 10/15/2025 15:11:39 10/29/20 25 10/29/2025 US, obste tric, 1st trime ster No observ ation record ed. [email or web address] [address], [place], [address], 10/29/2025 17:12:57 Result Notes None recorded. Problems Name Problem SNOMED Code Status Onset Date Resolution Date Notes Provider Name and Address Organization Details Recorded Time Gestatio nal diabetes mellitus class A2 91781672 Completed 5u NPH AM, 5u Lispro Lunch, 15u NPH @ [facility] - MF 03/31 [facility] 14:52:11 Cholesta sis [id number] Completed 07/07 - Per Scarlett with [facility] - she spoke with Dr. Dangelo and to cont ursodiol and anticipa te/assum e cholesta sis based on presenta tion. Rpt labs next week before MFM appt on 07/21. Might recommen d 37-38wk del José Weber [facility] 3 14:52:12 Amenorrh ea [id number] Completed 201409/23/2021 AMENORRH EA;Pract ice ID: 0001 Emma Cordova [facility] 1 10:28:02 Speciali zed medical examinat ion Completed 201409/23/2021 Routine gynecolo gical examinat ion;Prac dante ID: 0001 Emma Cordova [facility], [facility] 1 10:31:25 Pregnanc y test positive [id number] Completed 201409/23/2021 Positive Pregnanc y Test;Pra ctice ID: 0001 Emma Cordova [facility] 10:30:38 Uterine size for dates discrepa ncy [id number] Completed 201409/23/2021 UTERINE SIZE MEG-ANTE PAR;Prac dante ID: 0001 Emma Cordova [facility] 1 10:31:47 Mild hypereme sis-not delivere d [id number] Completed 201409/23/2021 Hypereme sis gravidar um, antepart um Mild;Pra ctice ID: 0001 [facility] 10:30:08 Nausea and vomiting [id number] Completed 201409/23/2021 Nausea with vomiting ;Practic e ID: 0001 Emma Cordova [facility] 10:30:09 Syncope and collapse [id number] Completed 201409/23/2021 Syncope and collapse ;Practic e ID: 0001 Emma Cordova [facility] 10:31:31 Antenata l screenin g Completed 201409/23/2021 ANTENATA L SCREENIN G NEC;Prac dante ID: 0001 Emmapat Cordova [facility] 10:28:04 Primigra parisa [id number] Completed 201409/23/2021 Supervis ion of normal first pregnanc y;Practi ce ID: 0001 Emma Cordova [facility] 10:30:56 anatomy study Completed 201409/23/2021 [facility] ANATMC SURVEY;Susana hillstice ID: 0001 Emmapat Cordova [facility] 10:29:10 Complica tion of pregnanc y, childbir th and/or puerperi um [id number] Completed 201409/23/2021 OTH CURR COND-ANT EPARTUM; Practice ID: 0001 Emma Cordova [facility] 10:28:17 Pregnanc y, childbir th and puerperi um finding Completed 201409/23/2021 Encntr for suprvsn of normal first preg, third trimeste r;Practi ce ID: 0001 Emma conrad, [facility] 1 10:30:41 Urinary tract infectio us disease [id number] Completed 201409/23/2021 Urinary tract infectio n, site not specifie d;Practi ce ID: 0001 Emma conrad, [facility] 10:31:42 Eruption [id number] Completed 201409/23/2021 Rash;Rec orded Elsewher e: No Locat ion: [facility] S ource: EHR Athletic Coordinator doris: N Practi ce ID: 0001 Roel lable Time: 03:30:00 PM Emma conrad, [facility] 1 10:28:58 Pregnanc y, childbir th and puerperi um finding Completed 201409/23/2021 Oth pregnanc y related conditio ns, third trimeste r;Practi ce ID: 0001 Emma conrad, [facility] 10:28:13 Noninfec tious enteriti s of intestin e Completed 201409/23/2021 Gastroen teritis; Recorded Elsewher e: No [facility]at ion: [facility] S ource: EHR Athletic Coordinator doris: N Practi ce ID: 0001 Roel lable Time: 02:30:00 PM Emma conrad, [facility] 1 10:30:00 prematur e rupture of membrane s [id number] Completed 201409/23/2021 Pretrm evelin ROM, unsp time betw rupt and onst labr, 3rd tri;Prac dante ID: 0001 Emma conrad, [facility] 1 10:30:54 Lochia finding Completed 201509/23/2021 Encounte r for routine postpart um follow-u p;Record ed Elsewher e: No Locat ion: Curtis vargas [facility] S ource: EHR Athletic Coordinator doris: N Practi ce ID: 0001 Roel lable Time: 01:00:00 PM Emma conrad [facility] 1 10:30:[address] Concept Completed 201509/23/2021 Encounte r for surveill ance of other contrace ptives;R ecorded Elsewher e: No Locat ion: [facility] S ource: EHR Athletic Coordinator doris: N Practi ce ID: 0001 Roel lable Time: 01:00:00 PM Emma Cordova [place] [facility] 1 10:31:20 Sexually transmit car infectio us disease [id number] Completed 201509/23/2021 STD;Romulo rded Elsewher e: No Locat ion: [facility] S ource: [facility] Athletic Coordinator doris: N Jairti ce ID: 0001 Roel lable Time: 10:30:00 AM Emma Cordova [place] [facility] 1 10:31:01 Uses combined oral contrace ption [id number] Completed 201609/23/2021 Encounte r for initial prescrip tion of contrace ptive pills;Re corded Elsewher e: No Locat ion: [facility] S ource: EHR Athletic Coordinator doris: N Jairti ce ID: 0001 Roel lable Time: 08:30:00 AM Emma conrad [facility] 1 10:28:15 Procedur e Completed 201609/23/2021 Encounte r for checking , reinsert ion or removal of implanta ble subderma l contrace ptive;Re corded Elsewher e: No Locat ion: [facility] S ource: EHR Athletic Coordinator doris: N Jairti ce ID: 0001 Roel lable Time: 08:30:00 AM Emma conrad [facility] 1 10:30:58 Infectio n screenin g Completed 201609/23/2021 Encounte r for screenin g for oth infec/pa rastc diseases ;Recorde d Elsewher e: No [facility] S ource: EHR Athletic Coordinator doris: N Jairti ce ID: 0001 Roel lable Time: 11:00:00 AM Emma conrad, [facility] 10:29:58 Acute vaginiti s [id number] Completed 201609/23/2021 Acute vaginiti s;Record ed Elsewher e: No Locat ion: [facility] S ource: EHR Athletic Coordinator doris: N Practi ce ID: 0001 Roel lable Time: 11:00:00 AM Emma conrad [facility] 10:28:00 Vaginola bial hernia Completed 201609/23/2021 Other specifie d noninfla mmatory disorder s of vagina;R ecorded Elsewher e: No Locat ion: [facility] S ource: EHR Athletic Coordinator doris: N Practi ce ID: 0001 Roel lable Time: 11:00:00 AM Emma conrad, [facility] 10:31:49 Counseli ng for harmful pattern of substanc e use Completed 201609/23/2021 Tobacco abuse counseli ng;Recor ded Elsewher e: No Locat ion: [facility] S ource: EHR Athletic Coordinator doris: N Practi ce ID: 0001 Roel lable Time: 11:00:00 AM Emma conrad [facility] 10:31:[address] Concept Completed 201609/23/2021 Encntr for general adult medical exam w/o abnormal findings ;Recorde d Elsewher e: No Locat ion: [facility] S ource: EHR Athletic Coordinator doris: N Practi ce ID: 0001 Roel lable Time: 11:00:00 AM Emma Tasha [place], [facility] 1 10:31:16 Increase d frequenc y of urinatio n [id number] Completed 201609/23/2021 Frequenc y of micturit ion;Romulo rded Elsewher e: No Locat ion: [facility] al[facility] S ource: EHR Athletic Coordinator doris: Marjorie Berger ce ID: 0001 Roel lable Time: 11:15:00 AM Emma Cordova [place], [facility] 1 10:29:56 Pregnanc y detectio n examinat ion Completed 201709/23/2021 Encounte r for pregnanc y test, result positive ;Recorde d Elsewher e: No Locat ion: [facility] S ource: EHR Athletic Coordinator doris: Marjorie Berger ce ID: 0001 Roel lable Time: 02:15:00 PM Emma Tasha [place], [facility] 1 10:30:18 Finding of regulari ty of menstrua l cycle Completed 201709/23/2021 Irregula r bleeding ;Recorde d Elsewher e: No Locat ion: [facility] S ource: EHR Athletic Coordinator doris: Marjorie Berger ce ID: 0001 Roel lable Time: 02:15:00 PM Emma Tasha [place], [facility] 1 10:29:18 Cyst of ovary Completed 201709/23/2021 Unspecif ied ovarian cyst, unspecif ied side;Rec orded Elsewher e: No Locat ion: [facility] S ource: EHR Athletic Coordinator doris: Marjorie Adamti ce ID: 0001 Roel lable Time: 11:00:00 AM Emma Cordova [place], [facility] 1 10:28:44 Syphilis test finding [id number] Completed 201709/23/2021 Encntr screen for infectio ns w sexl mode of transmis s;Record ed Elsewher e: No Locat ion: [facility] al[facility] N Jairti ce ID: 0001 Roel lable Time: 11:00:00 AM Emma conrad [facility] 1 10:31:[address] Concept Completed 201709/23/2021 Encntr for head swamper exam (general ) (routine ) w/o abn findings ;Recorde d Elsewher e: No [facility]: N Jairti ce ID: 0001 Roel lable Time: 11:00:00 AM Emma conrad [facility] 1 10:31:18 Body mass index 30+ - obesity [id number] Completed 201709/23/2021 Body mass index (BMI) 32.0-32. 9, adult;Re corded Elsewher e: No [facility]at [facility] d[facility]: N Jairti ce ID: 0001 Roel lable Time: 11:00:00 AM Emma conrad [facility] 10:28:11 Finding of pattern of menstrua l cycle Completed 201709/23/2021 Excessiv e and frequent menstrua tion with irregula r cycle;Re corded Elsewher e: No Locat ion: [facility]rynn alicia [facility] S ource: [facility]: N Jairti ce ID: 0001 Roel lable Time: 01:00:00 PM Emma conrad [facility] 1 10:29:16 Mammogra phic calcific ation of breast [id number] Completed 201709/23/2021 Mammogra phic calcifcn found on diagnost ic imaging of breast;R ecorded Elsewher e: No Locat ion: Curtis vargas [facility] S ource: [facility]: N Practi ce ID: 0001 Roel lable Time: 01:00:00 PM Emma conrad, [facility] 1 10:30:05 Pain in female genitali a Completed 201709/23/2021 Dysmenor jannette, unspecif ied;Romulo rded Elsewher e: No Locat ion: [facility] S ource: EHR Athletic Coordinator doris: N Ab ce ID: 0001 Roel lable Time: 01:00:00 PM Emma conrad, [facility] 1 10:30:13 Depressi ve disorder [id number] Completed 201709/23/2021 Major depressi ve disorder , single episode, unspecif ied;Romulo rded Elsewher e: No Locat ion: [facility] S ource: EHR Athletic Coordinator doris: N Ab ce ID: 0001 Roel lable Time: 09:00:00 AM Emma Cordova [facility], [facility] 1 10:28:[address] Concept Completed 201709/23/2021 Anxiety disorder , unspecif ied;Romulo rded Elsewher e: No Locat ion: [facility] S ource: EHR Athletic Coordinator doris: N Jairti ce ID: 0001 Roel lable Time: 09:45:00 AM Emma conrad, [facility] 1 10:31:09 Pregnanc y test negative [id number] Completed 201709/23/2021 Encounte r for pregnanc y test, result negative ;Recorde d Elsewher e: No Locat ion: [facility] S ource: EHR Athletic Coordinator doris: N Jairti ce ID: 0001 Roel lable Time: 09:45:00 AM Emma Cordova [facility], [facility] 1 10:30:36 Blood leukocyt e number above referenc e range [id number] Completed 201709/23/2021 Elevated white blood cell count, unspecif ied;Romulo rded Elsewher e: No [facility]at [facility]: E[facility] Athletic Coordinator doris: N Practi ce ID: 0001 Roel lable Time: 11:45:00 AM Emma conrad, [facility] 10:29:54 Pelvic and perineal pain [id number] Completed 201709/23/2021 Pelvic and perineal pain;Rec orded Elsewher e: No Locat ion: [facility] S ource: EHR Athletic Coordinator doris: N Practi ce ID: 0001 Roel lable Time: 11:15:00 AM Emma conrad, [facility] 10:30:16 Dysuria [id number] Completed 201709/23/2021 Dysuria; Recorded Elsewher e: No Locat ion: [facility] S ource: EHR Athletic Coordinator doris: N Practi ce ID: 0001 Roel lable Time: 11:45:00 AM Emma conrad, [facility] 10:28:56 Exposure to sexually transmis sible disorder Completed 201709/23/2021 Contact w and exposure to infect w a sexl mode of transmis s;Practi ce ID: 0001 Emma Cordova [facility], [facility] 10:29:00 Gestatio n less than 9 weeks [id number] Completed 201809/23/2021 Less than 8 weeks gestatio n of pregnanc y;Record ed Elsewher e: No Locat ion: [facility] S ource: EHR Athletic Coordinator doris: N Practi ce ID: 0001 Roel lable Time: 08:15:00 AM Emma conrad, [facility] 10:29:22 Situatio n with explicit context Completed 201809/23/2021 Suprvsn of preg w poor reprodct v or obstet hx, first tri;Romulo rded Elsewher e: No Locat ion: [facility] S ource: EHR Athletic Coordinator doris: N Jairti ce ID: 0001 Roel lable Time: 08:15:00 AM Emma conrad [facility] 1 10:31:07 Threaten ed miscarri age [id number] Completed 201809/23/2021 Threaten ed ;Recorde d Elsewher e: No [facility]: N Jairti ce ID: 0001 Roel lable Time: 10:30:00 AM Emma conrad, [facility] 10:31:38 Blighted ovum [id number] Completed 201809/23/2021 Blighted ovum and nonhydat idiform mole;Rec orded Elsewher e: No [facility]at [facility]: N Jairti ce ID: 0001 Roel lable Time: 10:30:00 AM Emma conrad, [facility] 1 10:28:08 Finding of contents of cervix [id number] Completed 201809/23/2021 Weeks of gestatio n of pregnanc y not specifie d;Record ed Elsewher e: No [facility]at [facility]: N Jairti ce ID: 0001 Roel lable Time: 10:30:00 AM Emma conrad [facility] 1 10:29:13 Normal pregnanc y in multigra parisa [id number] 90433 Completed 201809/23/2021 Encounte r for suprvsn of normal pregnanc y, second trimeste r;Record ed Elsewher e: No Locat ion: [facility] S ource: [facility]: N Jairti ce ID: 0001 Roel lable Time: 05:00:00 PM Emma conrad [facility] 1 10:30:11 Antenata l screenin g for malforma tion Completed 201809/23/2021 Encounte r for antenata l screenin g for malforma tions;Re corded Elsewher e: No Locat ion: [facility] S ource: EHR Athletic Coordinator doris: N Jairti ce ID: 0001 Roel lable Time: 10:30:00 AM Emma conrad, [facility] 1 10:28:06 Gestatio n period, 20 weeks [id number] Completed 201809/23/2021 20 weeks gestatio n of pregnanc y;Record ed Elsewher e: No Locat ion: [facility] S ource: EHR Athletic Coordinator doris: N Jairti ce ID: 0001 Roel lable Time: 11:30:00 AM Emma conrad, [facility] 10:29:24 Finding of trunk structur e Completed 201909/23/2021 Oth diseases and conditio ns compl preg/chl dbrth;Re corded Elsewher e: No [facility] S ource: EHR Athletic Coordinator doris: N Jairti ce ID: 0001 Roel lable Time: 03:15:00 PM Emma conrad [facility] 10:31:40 Gestatio n period, 29 weeks [id number] Completed 201909/23/2021 29 weeks gestatio n of pregnanc y;Record ed Elsewher e: No [facility] S ource: EHR Athletic Coordinator doris: N Practi ce ID: 0001 Roel lable Time: 03:15:00 PM Emma conrad [facility] 1 10:29:27 Gestatio n period, 30 weeks [id number] Completed 201909/23/2021 30 weeks gestatio n of pregnanc y;Record ed Elsewher e: No Locat ion: Curtis vargas [facility] S ource: EHR Athletic Coordinator doris: N Jairti ce ID: 0001 Roel lable Time: 10:45:00 AM Emma Tasha [place], [facility] 1 10:29:29 Uterine size for dates discrepa ncy Completed 201909/23/2021 Uterine size-neeta e discrepa ncy, second trimeste r;Record ed Elsewher e: No Locat ion: Curtis vargas [facility] S ource: EHR Athletic Coordinator doris: N Practi ce ID: 0001 Roel lable Time: 10:45:00 AM Emma Cordova [place], [facility] 10:31:[address] Concept Completed 201909/23/2021 Decrease d movement s, third trimeste r, unsp;Rec orded Elsewher e: No Locat ion: Curtis vargas [facility] S ource: EHR Athletic Coordinator doris: N Jairti ce ID: 0001 Roel lable Time: 11:30:00 AM Emma Tasha [place], [facility] 1 10:31:14 Prematur e rupture of membrane s [id number] Completed 201909/23/2021 Evelin ROM, 7th0 betw rupt & onst labr, unsp weeks of gest;Pra ctice ID: 0001 Emma Cordova [place], [facility] 10:30:51 Gestatio n period, 32 weeks [id number] Completed 201909/23/2021 32 weeks gestatio n of pregnanc y;Record ed Elsewher e: No Locat ion: Curtis vargas [facility] S ource: EHR Athletic Coordinator doris: N Practi ce ID: 0001 Roel lable Time: 11:00:00 AM Emma Tasha [place], [facility] 10:29:30 Gestatio n period, 33 weeks [id number] Completed 201909/23/2021 33 weeks gestatio n of pregnanc y;Record ed Elsewher e: No Locat ion: Curtis vargas [facility] S ource: EHR Athletic Coordinator doris: N Practi ce ID: 0001 Roel lable Time: 03:00:00 PM Emma conrad, [facility] 10:29:32 Gestatio n period, 34 weeks [id number] Completed 201909/23/2021 34 weeks gestatio n of pregnanc y;Record ed Elsewher e: No [facility]at [facility]: EHR Athletic Coordinator doris: N Practi ce ID: 0001 Roel lable Time: 11:00:00 AM Emma conrad, [facility] 10:29:34 False labor before 37 complete d weeks of gestatio n [id number] Completed 201909/23/2021 False labor before 37 complete d weeks of gest, third tri;Prac dante ID: 0001 Emma conrad, [facility] 10:29:08 Gestatio n period, 35 weeks [id number] Completed 201909/23/2021 35 weeks gestatio n of pregnanc y;Record ed Elsewher e: No Locat ion: [facility] S ource: EHR Athletic Coordinator doirs: N Practi ce ID: 0001 Roel lable Time: 11:30:00 AM Emma conrad [facility] 10:29:36 Gestatio nal diabetes mellitus [id number] Completed 201909/23/2021 Gestatio nal diabetes in pregnanc y, insulin controll ed;Recor ded Elsewher e: No [facility]: EHR Athletic Coordinator doris: N Practi ce ID: 0001 Roel lable Time: 10:30:00 AM Emma conrad [facility] 10:29:52 Gestatio n period, 36 weeks [id number] Completed 201909/23/2021 36 weeks gestatio n of pregnanc y;Practi ce ID: 0001 Emma conrad, [facility] 10:29:38 Pregnanc y-induce d hyperten bo Completed 201909/23/2021 Gestatio nal htn w/o signific ant proteinu anais, third trimeste r;Practi ce ID: 0001 Emma conrad, [facility] 10:30:49 Gestatio n period, 37 weeks [id number] Completed 201909/23/2021 37 weeks gestatio n of pregnanc y;Record ed Elsewher e: No Locat ion: [facility] S ource: EHR Athletic Coordinator doris: N Practi ce ID: 0001 Roel lable Time: 10:30:00 AM Emma conrad [facility] 10:29:40 False labor at or after 37 complete d weeks of gestatio n [id number] Completed 201909/23/2021 False labor at or after 37 complete d weeks of gestatio n;Practi ce ID: 0001 Emma conrad, [facility] 10:29:06 Gestatio n period, 38 weeks [id number] Completed 201909/23/2021 38 weeks gestatio n of pregnanc y;Record ed Elsewher e: No Locat ion: [facility] S ource: EHR Athletic Coordinator doris: N Practi ce ID: 0001 Roel lable Time: 10:30:00 AM Emma conrad [facility] 10:29:41 Term pregnanc y delivere d [id number] Completed 201909/23/2021 Encounte r for full-ter m uncompli cated delivery ;Practic e ID: 0001 Emma conrad [facility] 11/02/202 1 10:31:36 Single live from singleto n pregnanc y [id number] Completed 201909/23/2021 Single live ;Pr actice ID: 0001 Emma Cordova [facility], [facility] 10:31:03 Gestatio n period, 39 weeks [id number] Completed 201909/23/2021 39 weeks gestatio n of pregnanc y;Practi ce ID: 0001 Emma Cordova [facility], [facility] 10:29:43 Past pregnanc y history of gestatio nal diabetes mellitus [id number] Active 2022 Tiffanie Flores MD [address], [place], [address], [facility] 3 19:36:59 Pregnanc y [id number] Completed 202208/16/2023 José Ledesmale [facility], [facility] 3 14:52:19 Gestatio nal diabetes mellitus [id number] Completed 2022 h/o gdm2A. Checking BS QID, serial growth, antenata l [facility] 3 14:52:11 Problem Notes None recorded. Procedures Surgical History Date Name Laterality Status Provider Name and Address Organization Details Recorded Time 06/07/20 25 Dilation and Curettage completed Emily Millard [facility] 06/18/2025 14:42:30 02/14/20 25 Date of Last Pap Smear completed Tiffanie Boothe [facility] 06/01/2025 12:11:46 08/30/20 24 IUD Removal completed Maria T Carlton CNM [address], [place], [address], [facility] 08/31/2024 13:59:56 08/04/20 24 IUD Insertion completed Maria T Carlton CNM [address], [place], [address], [facility] 08/05/2024 08:44:48 07/29/20 22 Hysteroscopy completed Maria T Carlton CNM [address], [place], [address], [facility] 07/29/2022 08:52:41 07/29/20 22 Hysteroscopy completed Emma Cordova [facility] 07/29/2022 08:35:27 07/21/20 22 [facility]/21/[facility]22 12:21:30 04/17/20 20 IUD Insertion completed Swethalita [facility] 12:09:21 03/20/20 20 IUD Insertion [facility] 03/20/2020 12:11:51 11/22/19 18 [facility] 10/01/2020 19:16:40 11/22/19 14 completed Kayla Fournier [facility] 10/08/2021 16:13:03 11/22/19 14 colonoscopy completed Emmapat Cordova [facility] 09/23/2021 10:34:09 11/22/19 13 Dilation and [facility]ttage [facility] 09/23/2021 10:34:16 11/22/19 00 [facility] 09/23/2021 10:34:23 Imaging Results None recorded. Procedure Notes None recorded. Medical Equipment None Reported. Allergies Allergen ID Allergen Name Allergen Category Reaction Reaction Severity Criticality Documentation Date Start Date Code Code System Note Provider Name and Address Organization Details Recorded Time prednison e medicatio n Not available Not available Not available 01/05/2023 8640 RxNorm Emma conrad [facility] 3 10:49:28 2666 amoxicill in medicatio n Not available Not available Not available 10/01/2020 723 RxNorm Emma conrad [facility] 1 10:27:49 53832 aluminum aspirin Not available Not available Not available Not available 10/08/20252020 611 RxNorm unrec ogniz ed react ion (text : Other , code: 75834 07) (from [facility]) Not Available [employer] - External Data Service - prod 5 09:39:58 91 aspirin medicatio n Not available Not available Not available 03/04/2020 1191 RxNorm Caterina Aquino [facility], [facility] 0 17:51:36 Medications Name Sig [...] ed Elsewher e: No Locat ion: [facility] odify By: [address] z Encoun ter DateTime : 04/23/20 11:17:56 AM [...] ed Elsewher e: No Locat ion: [facility] M odify By: [employer] z Encoun ter DateTime : 10/10/20 11:00:00 AM Not Available Not Available Not [...] ed Elsewher e: No Locat ion: [facility] odify By: annalisa turner DateTime : [...] Prescrib ed Elsewher e: No Locat ion: [facility] odify By: senait palomo DateTime : 07/21/20 18 04:08:38 PM Not Available Not Available Not Available dicyclomi ne 20 mg tablet 10/01 completed Not Available Not Available Not Available betametha sone valerate 0.1 % topical cream apply by topical route every day a thin layer to the affected area(s) 02/01 completed Prescrib ed Elsewher e: No Locat ion: [facility] odify By: raul correa DateTime : [...] Prescrib ed Elsewher e: No Locat ion: [facility] odify By: annalisa utrner DateTime : 09/12/20 18 12:13:51 PM Not [...] Prescrib ed Elsewher e: No Locat ion: [facility] odify By: jill palomo DateTime : [...] Prescrib ed Elsewher e: No Locat ion: [facility] odify By: raul z Encoun ter DateTime : 09/02/20 15 09:21:34 AM Not Available Not Available Not Available norethind jatinder (contrace ptive) 0.35 mg tablet TAKE 1 TABLET BY MOUTH EVERY DAY 02/13 completed Not Available Not Available Not Available Zoloft 25 mg tablet take 1 tablet by oral route every day 03/29 completed Prescrib ed Elsewher e: No Locat ion: [facility] odify By: raul z Encoun ter [...] Prescrib ed Elsewher e: No Locat ion: [facility] odify By: annalisa turner DateTime : [...] Prescrib ed Elsewher e: No Locat ion: [facility] odify By: senait palomo DateTime : [...] Prescrib ed Elsewher e: No Locat ion: [facility] odify By: lexi correa DateTime : [...] Prescrib ed Elsewher e: No Locat ion: [facility] odify By: margaret Barroso r DateTime : 05/28/20 17 11:15:00 AM Not Available Not Available Not Available Humulin N NPH U-100 Insulin KwikPen 100 unit/mL (3 mL) subcutane ous 09/03 completed Not Available Not Available Not Available Fora [id number] 10-D20 strips-la ncets 30 gauge combo pack checking BS QID fasting and 1hr pp 07/21 completed Prescrib ed Elsewher e: No [facility] By: rubi Barroso r DateTime : [...] ed Elsewher e: No [facility] By: annalisa Barroso r DateTime : [...] Updated DateTime 10/15/2025 157.48 cm 33.8 kg/m2 91974.59 g 119/73 mm[Hg] Emily Millard [facility] 10/15/2025 14:32:05 Social History Question Answer Notes LastModified by Organizat ion Details LastModified Time Tobacco Smoking Status Former Smoker Emma conrad, [facility] 10/01/2020 15:14:21 If You Are , What Was Your Level Of Alcohol Consumption Prior To ? Occasional [email or web address] Information not available 02/01/2023 Are You Blind Or Do You Have Difficulty Seeing? No [email or web address] Information not available 09/23/2021 What Is Your Level Of Caffeine Consumption? Occasional [email or web address] Information not available 10/29/2025 In The 14 Days Before Symptom Onset, Have You Had Close Contact With A [facility] COVID-19 While That Case Was Ill? No [email or web address] Information not available 02/01/2023 In The 14 Days Before Symptom Onset, Have You Had Close Contact With A Person Who Is Under Investigation For COVID-19 While That Person Was Ill? No [email or web address] Information not available 02/01/2023 Have You Been To An Area Known To Be High Risk For COVID-19? No [email or web address] Information not available 02/01/2023 Are You Deaf Or Do You Have Serious Difficulty Hearing? No [email or web address] Information not available 09/23/2021 What Type Of Diet Are You Following? REGULAR [email or web address] Information not available 09/23/2021 What Is The Highest Grade Or Level Of School You Have Completed Or The Highest Degree You Have Received? [id number] [email or web address] Information not available 10/29/2025 What Was The Date Of Your Most Recent Tobacco Screening? 08/30/2024 [email or web address] Information not available 08/30/2024 Do You Use Protection During Sex? No Information not available 10/29/2025 Do You Use Your Seat Belt Or Car Seat Routinely? Yes [email or web address] Information not available 02/01/2023 Are You Sexually Active? Yes Information not available 10/29/2025 Do You Have Smoke And Carbon Monoxide Detectors In Your Home? Yes [email or web address] Information not available 02/01/2023 How Much Tobacco Do You Smoke? No [email or web address] Information not available 05/21/2020 Do You Use Sunscreen Routinely? Yes [email or web address] Information not available 02/01/2023 Has Tobacco Cessation Counseling Been Provided? No [email or web address] Information not available 02/01/2023 Do You Have Difficulty Walking Or Climbing Stairs? No [email or web address] Information not available 07/21/2022 Sex: Unknown Functional Status Question Answer Note LastModified by Organizat ion Details LastModified Time Do you use any illicit or recreational drugs? No [email or web address] Information not available 02/01/2023 Do you or have you ever used any other forms of tobacco or nicotine? No [email or web address] Information not available 02/01/2023 What is your level of alcohol consumption? None [email or web address] Information not available 02/01/2023 Do you or have you ever used smokeless tobacco? Never used smokeless tobacco Information not available 05/21/2020 Are you currently employed? No [email or web address] Information not available 10/29/2025 Are you able to walk independently without assistance or assistive devices? YESWOREST [email or web address] Information not available 09/23/2021 Are you able to care for yourself independently? Yes [email or web address] Information not available 07/21/2022 Do you have difficulty dressing, bathing, grooming, or toileting? No [email or web address] Information not available 07/21/2022 Do you or have you ever used e-cigarettes or vape? Never used electronic cigarettes [email or web address] Information not available 05/21/2020 What is your exercise level? Occasional walking [email or web address] Information not available 03/05/2020 Mental Status Question Answer Note LastModified by Organization D etails LastModified Time Do you feel stressed (tense, restless, nervous, or anxious, or unable to sleep at night)? [id number] [email or web address] Information not available 02/01/2023 Family History Relationship [...] ICD10 Code Diagnosis IMO Codes Diagnosis Note [id number] Venkat Gotti MD [place] [address],[place] [address] 10/08/2025 10:54:40 10/08/2025 11:44:42 Threatened miscarriage [id number] O20.0 Z3A.01 21328 [id number] CLAUDETTE SINGH MD [place] [address],[place] [address] 10/15/2025 13:26:38 10/15/2025 13:50:58 Complication occurring during [id number] O99.891 Z3A.01 [id number] Venkat Gotti MD [place] [address],[place] [address] 10/15/2025 13:27:10 10/15/2025 14:59:28 Acute urinary tract infection [id number] N39.0 [id number] Gestationa l diabetes mellitus [id number] O24.410 [id number] this patient is a 30-year-ol d female [...] Member ID Guarantor Name 10/15/2025 1 [employer] [id number] Buddy Yusuf [id number] Mariel Yusuf Notes Date Note Type Note [...] in total. Venkat Gotti MD [address], [place], [address], [facility] 10/15/2025 14:58:31 OBGyn Episode No OBEpisode recorded.
--- OUTSIDE RECORDS SUMMARY | 2025-11-11 22:27 | XMS_ITS | Data Portability ---
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 Plan of Treatment Reminders Order Date Submit Date Provider Last Modified By Organization Details Last Modified Time Details Appointments U/S OB FIRST LOOK 2024 10:30A M ULTRASOUND Not available Not available Not available OB NEW 2024 11:00A M Rene VALDEZ MD Not available Not available Not available Lab None recorde d. Referral None recorde d. Procedures None recorde d. Surgeries None recorde d. Imaging US, obstetr ic, transva ginal 2024 025 [address], [address], [place], [address], 10/17/2025 11:38:27 US, obstetr ic, transva ginal 2024 [address], [address], [place], [address], 10/08/2025 18:48:46 Medication Orders OneTouc h Ultra Test strips 2024 025 [place] [id number], [address] [place], [address], 10/15/2025 14:52:18 Macrobi d 100 mg capsule 2024 025 [id number], [address] [place], [address], 10/29/2025 11:25:47 Patient TargetsNo targets recorded. Patient [...] Resul ting Lab: [facility] [address] [facility] [address] Tel: CULTU RE ----- ----- ----- --- Cultu re resul t (>=3 organ isms prese nt) indic ates possi ble conta minat ion. Repea t cultu re if sympt oms indic ate. Not Available [facility] (Lab) [address] [facility], [place], [address], 10/10/2025 08:41:21 10/08/20 25 10/08/2025 US, obste tric, trans vagin al No observ ation record ed. [email or web address] Bison [address], [place], [address], 10/08/2025 15:50:26 10/08/20 25 10/08/2025 US, obstalicia tric, trans vagin al No observ ation record ed. [email or web address] Nydia [address], [place], [address], 10/08/2025 20:28:04 10/15/20 25 10/15/2025 US, obste tric, trans vagin al No observ ation record ed. [email or web address] Bison [address], [place], [address], 10/15/2025 14:43:23 10/15/20 25 10/15/2025 US, obste tric, trans vagin al No observ ation record ed. [email or web address] Nydia [address], [place], [address], 10/15/2025 15:11:39 10/29/20 25 10/29/2025 US, obste tric, 1st trime ster No observ ation record ed. [email or web address] Nydia [address] [place] [address] [address], [place], [address], 10/29/2025 17:12:57 Result Notes None recorded. Problems Name Problem SNOMED Code Status Onset Date Resolution Date Notes Provider Name and Address Organization Details Recorded Time Gestatio nal diabetes mellitus class A2 84734499 Completed 5u NPH AM, 5u Lispro Lunch, 15u NPH @ [facility] 03/31 [facility] Rosa Elena Weber [facility] 3 14:52:11 Cholesta sis [id number] Completed 07/07 - Per Scarlett with M - she spoke with Dr. Dangelo and to cont ursodiol and anticipa te/assum e cholesta sis based on presenta tion. Rpt labs next week before MFM appt on 07/21. Might recommen d 37-38wk del José Weber [facility] 3 14:52:12 Amenorrh ea [id number] Completed 201409/23/2021 AMENORRH EA;Pract ice ID: 0001 Emma Cordova [facility] 1 10:28:02 Speciali zed medical examinat ion Completed 201409/23/2021 Routine gynecolo gical examinat ion;Prac dante ID: 0001 Emma Cordova [facility] 1 10:31:25 Pregnanc y test positive [id number] Completed 201409/23/2021 Positive Pregnanc y Test;Pra ctice ID: 0001 [facility] 10:30:38 Uterine size for dates discrepa ncy [id number] Completed 201409/23/2021 UTERINE SIZE MEG-ANTE PAR;Prac dante ID: 0001 Emma Cordova [facility] 10:31:47 Mild hypereme sis-not delivere d [id number] Completed 201409/23/2021 Hypereme sis gravidar um, antepart um Mild;Pra ctice ID: 0001 Emma Cordova [facility] 10:30:08 Nausea and vomiting [id number] Completed 201409/23/2021 Nausea with vomiting ;Practic e ID: 0001 Emma Cordova [facility] 10:30:09 Syncope and collapse [id number] Completed 201409/23/2021 Syncope and collapse ;Practic e ID: 0001 Emma Cordova [facility] 10:31:31 Antenata l screenin g Completed 201409/23/2021 ANTENATA L SCREENIN G NEC;Prac dante ID: 0001 Emma Cordova [facility] 10:28:04 Primigra parisa [id number] Completed 201409/23/2021 Supervis ion of normal first pregnanc y;Practi ce ID: 0001 Emma Cordova [facility] 10:30:56 anatomy study Completed 201409/23/2021 [facility];P ractice ID: 0001 Emma Cordova [facility] 11/02/202 1 10:29:10 Complica tion of pregnanc y, childbir th and/or puerperi um [id number] Completed 201409/23/2021 OTH CURR COND-ANT EPARTUM; Practice ID: 0001 Emma conrad, [facility] 10:28:17 Pregnanc y, childbir th and puerperi um finding Completed 201409/23/2021 Encntr for suprvsn of normal first preg, third trimeste r;Practi ce ID: 0001 Emma conrad, [facility] 10:30:41 Urinary tract infectio us disease [id number] Completed 201409/23/2021 Urinary tract infectio n, site not specifie d;Practi ce ID: 0001 Emma conrad, [facility] 10:31:42 Eruption [id number] Completed 201409/23/2021 Rash;Rec orded Elsewher e: No Locat ion: Curtis vargas [facility] S ource: EHR Swabber doris: N Practi ce ID: 0001 Roel lable Time: 03:30:00 PM Emma conrad [facility] 10:28:58 Pregnanc y, childbir th and puerperi um finding Completed 201409/23/2021 Oth pregnanc y related conditio ns, third trimeste r;Practi ce ID: 0001 Emma conrad, [facility] 10:28:13 Noninfec tious enteriti s of intestin e Completed 201409/23/2021 Gastroen teritis; Recorded Elsewher e: No Locat ion: Curtis vargas [facility] S ource: EHR Swabber doris: N Practi ce ID: 0001 Roel lable Time: 02:30:00 PM Emma conrad [facility] 1 10:30:00 prematur e rupture of membrane s [id number] Completed 201409/23/2021 Pretrm evelin ROM, unsp time betw rupt and onst labr, 3rd tri;Prac dante ID: 0001 Emma Cordova [place], [facility] 1 10:30:54 Lochia finding Completed 201509/23/2021 Encounte r for routine postpart um follow-u p;Record ed Elsewher e: No [facility] Swabber doris: N Practi ce ID: 0001 Roel lable Time: 01:00:00 PM Emma Cordova [place], [facility] [address] 10:30:[address] Concept Completed 201509/23/2021 Encounte r for surveill ance of other contrace ptives;R ecorded Elsewher e: No Locat ion: [facility] S ource: EHR Swabber doris: N Practi ce ID: 0001 Roel lable Time: 01:00:00 PM Emma Cordova [place], [facility] 1 10:31:20 Sexually transmit car infectio us disease [id number] Completed 201509/23/2021 STD;Romulo rded Elsewher e: No [facility]: EHR Swabber doris: N Practi ce ID: 0001 Roel lable Time: 10:30:00 AM Emma conrad, [facility] 1 10:31:01 Uses combined oral contrace ption [id number] Completed 201609/23/2021 Encounte r for initial prescrip tion of contrace ptive pills;Re corded Elsewher e: No [facility]: EHR Swabber doris: N Practi ce ID: 0001 Roel lable Time: 08:30:00 AM Emma conrad [facility] 1 10:28:15 Procedur e Completed 201609/23/2021 Encounte r for checking , reinsert ion or removal of implanta ble subderma l contrace ptive;Re corded Elsewher e: No Locat ion: [facility] S ource: EHR Swabber doris: N Practi ce ID: 0001 Roel lable Time: 08:30:00 AM Emma Cordova [place], [facility] 1 10:30:58 Infectio n screenin g Completed 201609/23/2021 Encounte r for screenin g for oth infec/pa rastc diseases ;Recorde d Elsewher e: No Locat ion: [facility] S ource: EHR Swabber doris: N Practi ce ID: 0001 Roel lable Time: 11:00:00 AM Emma Cordova [facility], [facility] 1 10:29:58 Acute vaginiti s [id number] Completed 201609/23/2021 Acute vaginiti s;Record ed Elsewher e: No Locat ion: [facility] S ource: EHR Swabber doris: N Jairti ce ID: 0001 Roel lable Time: 11:00:00 AM Emma Cordova [place], [facility] 1 10:28:00 Vaginola bial hernia Completed 201609/23/2021 Other specifie d noninfla mmatory disorder s of vagina;R ecorded Elsewher e: No Locat ion: [facility] S ource: EHR Swabber doris: N Practi ce ID: 0001 Roel lable Time: 11:00:00 AM Emma Cordova [place], [facility] 1 10:31:49 Counseli reilly for harmful pattern of substanc e use Completed 201609/23/2021 Tobacco abuse counseli reilly;Recor ded Elsewher e: No Locat ion: [facility] S ource: EHR Swabber doris: N Practi ce ID: 0001 Roel lable Time: 11:00:00 AM Emma conrad [facility] 1 10:31:[address] Concept Completed 201609/23/2021 Encntr for general adult medical exam w/o abnormal findings ;Recorde d Elsewher e: No Locat ion: [facility] S ource: EHR Swabber doris: N Practi ce ID: 0001 Roel lable Time: 11:00:00 AM Emma conrad, [facility] 1 10:31:16 Increase d frequenc y of urinatio n [id number] Completed 201609/23/2021 Frequenc y of micturit ion;Romulo rded Elsewher e: No Locat ion: [facility] Practi ce ID: 0001 Roel lable Time: 11:15:00 AM Emma conrad [facility] 1 10:29:56 Pregnanc y detectio n examinat ion Completed 201709/23/2021 Encounte r for pregnanc y test, result positive ;Recorde d Elsewher e: No Locat ion: [facility] S ource: EHR Swabber doris: N Jairti ce ID: 0001 Roel lable Time: 02:15:00 PM Emma conrad [facility] 1 10:30:18 Finding of regulari ty of menstrua l cycle Completed 201709/23/2021 Irregula r bleeding ;Recorde d Elsewher e: No Locat ion: [facility]: N Practi ce ID: 0001 Roel lable Time: 02:15:00 PM Emma conrad [facility] 1 10:29:18 Cyst of ovary Completed 201709/23/2021 Unspecif ied ovarian cyst, unspecif ied side;Rec orded Elsewher e: No Locat ion: Curtis vargas [facility] S ource: EHR Swabber doris: N Jairti ce ID: 0001 Roel lable Time: 11:00:00 AM Emma conrad [facility] 10:28:44 Syphilis test finding [id number] Completed 201709/23/2021 Encntr screen for infectio ns w sexl mode of transmis s;Record ed Elsewher e: No Locat ion: [facility] S ource: EHR Swabber doris: N Jairti ce ID: 0001 Roel lable Time: 11:00:00 AM Emma conrad, [facility] 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 10:31:18 Body mass index 30+ - obesity [id number] Completed 201709/23/2021 Body mass index (BMI) 32.0-32. 9, adult;Re corded Elsewher e: No [facility]: EHR Swabber doris: N Jairti ce ID: 0001 Roel lable Time: 11:00:00 AM Emma conrad [facility] 10:28:11 Finding of pattern of menstrua l cycle Completed 201709/23/2021 Excessiv e and frequent menstrua tion with irregula r cycle;Re corded Elsewher e: No Locat ion: Curtis vargas [facility] S ource: EHR Swabber doris: N Jairti ce ID: 0001 Roel lable Time: 01:00:00 PM Emma conrad, [facility] 10:29:16 Mammogra phic calcific ation of breast [id number] Completed 201709/23/2021 Mammogra phic calcifcn found on diagnost ic imaging of breast;R ecorded Elsewher e: No Locat ion: [facility] S ource: EHR Swabber doris: N Ab ce ID: 0001 Roel lable Time: 01:00:00 PM Emma conrad, [facility] 10:30:05 Pain in female genitali a Completed 201709/23/2021 Dysmenor jannette, unspecif ied;Romulo rded Elsewher e: No Locat ion: [facility] S ource: EHR Swabber doris: Marjorie Berger ce ID: 0001 Roel lable Time: 01:00:00 PM Emma conrad, [facility] 10:30:13 Depressi ve disorder [id number] Completed 201709/23/2021 Major depressi ve disorder , single episode, unspecif ied;Romulo rded Elsewher e: No Locat ion: [facility] S ource: EHR Swabber doris: Marjorie Berger ce ID: 0001 Roel lable Time: 09:00:00 AM Emma conrad, [facility] 10:28:[address] Concept Completed 201709/23/2021 Anxiety disorder , unspecif ied;Romulo rded Elsewher e: No Locat ion: [facility] S ource: EHR Swabber doris: Marjorie Ab ce ID: 0001 Roel lable Time: 09:45:00 AM Emma conrad [facility] 10:31:09 Pregnanc y test negative [id number] Completed 201709/23/2021 Encounte r for pregnanc y test, result negative ;Recorde d Elsewher e: No Locat ion: [facility] N Practi ce ID: 0001 Roel lable Time: 09:45:00 AM Emma conrad, [facility] 1 10:30:36 Blood leukocyt e number above referenc e range [id number] Completed 201709/23/2021 Elevated white blood cell count, unspecif ied;Romulo rded Elsewher e: No Locat ion: [facility] S [facility]: N Practi ce ID: 0001 Roel lable Time: 11:45:00 AM Emma conrad, [facility] 10:29:54 Pelvic and perineal pain [id number] Completed 201709/23/2021 Pelvic and perineal pain;Rec orded Elsewher e: No Locat ion: [facility] S ource: EHR Swabber doris: N Practi ce ID: 0001 Roel lable Time: 11:15:00 AM Emma conrad [facility] 10:30:16 Dysuria [id number] Completed 201709/23/2021 Dysuria; Recorded Elsewher e: No Locat ion: [facility] S [facility]: N Practi ce ID: 0001 Roel lable Time: 11:45:00 AM Emma conrad [facility] 1 10:28:56 Exposure to sexually transmis sible disorder Completed 201709/23/2021 Contact w and exposure to infect w a sexl mode of transmis s;Practi ce ID: 0001 Emma conrad, [facility] 10:29:00 Gestatio n less than 9 weeks [id number] Completed 08/05/ 2019 09/23/2021 Less than 8 weeks gestatio n of pregnanc y;Record ed Elsewher e: No [facility]: EHR Swabber doris: N Jairti ce ID: 0001 Roel lable Time: 08:15:00 AM mEma conrad, [facility] 1 10:29:22 Situatio n with explicit context Completed 201809/23/2021 Suprvsn of preg w poor reprodct v or obstet hx, first tri;Romulo rded Elsewher e: No [facility] S ource: EHR Swabber doris: N Jairti ce ID: 0001 Roel lable Time: 08:15:00 AM Emma conrad, [facility] 1 10:31:07 Threaten ed miscarri age [id number] Completed 201809/23/2021 Threaten ed ;Recorde d Elsewher e: No [facility]: EHR Swabber doris: N Jairti ce ID: 0001 Roel lable Time: 10:30:00 AM Emma conrad, [facility] 1 10:31:38 Blighted ovum [id number] Completed 201809/23/2021 Blighted ovum and nonhydat idiform mole;Rec orded Elsewher e: No [facility] S ource: EHR Swabber doris: N Jairti ce ID: 0001 Roel lable Time: 10:30:00 AM Emma conrad [facility] 1 10:28:08 Finding of contents of cervix [id number] Completed 201809/23/2021 Weeks of gestatio n of pregnanc y not specifie d;Record ed Elsewher e: No [facility] S ource: EHR Swabber doris: N Jairti ce ID: 0001 Roel lable Time: 10:30:00 AM Emma conrad, [facility] 1 10:29:13 Normal pregnanc y in multigra parisa [id number] 44531 Completed 201809/23/2021 Encounte r for suprvsn of normal pregnanc y, second trimeste r;Record ed Elsewher e: No Locat ion: Curtis [facility] S ource: EHR Swabber doris: N Practi ce ID: 0001 Roel lable Time: 05:00:00 PM Emma conrad [facility] 1 10:30:11 Antenata l screenin g for malforma tion Completed 201809/23/2021 Encounte r for antenata l screenin g for malforma tions;Re corded Elsewher e: No Locat ion: [facility] S ource: EHR Swabber doris: N Jairti ce ID: 0001 Roel lable Time: 10:30:00 AM Emma conrad [facility] 1 10:28:06 Gestatio n period, 20 weeks [id number] Completed 201809/23/2021 20 weeks gestatio n of pregnanc y;Record ed Elsewher e: No Locat ion: [facility] S ource: EHR Swabber doris: N Jairti ce ID: 0001 Roel lable Time: 11:30:00 AM Emma conrad [facility] 1 10:29:24 Finding of trunk structur e Completed 201909/23/2021 Oth diseases and conditio ns compl preg/chl dbrth;Re corded Elsewher e: No Locat ion: [facility] S ource: EHR Swabber doris: N Practi ce ID: 0001 Roel lable Time: 03:15:00 PM Emma conrad [facility] 1 10:31:40 Gestatio n period, 29 weeks [id number] Completed 201909/23/2021 29 weeks gestatio n of pregnanc y;Record ed Elsewher e: No Locat ion: [facility]nn [facility] S ource: EHR Swabber doris: N Jairti ce ID: 0001 Reol lable Time: 03:15:00 PM Emma conrad, [facility] 10:29:27 Gestatio n period, 30 weeks [id number] Completed 201909/23/2021 30 weeks gestatio n of pregnanc y;Record ed Elsewher e: No [facility] Swabber doris: N Jairti ce ID: 0001 Roel lable Time: 10:45:00 AM Emma conrad, [facility] 10:29:29 Uterine size for dates discrepa ncy Completed 201909/23/2021 Uterine size-neeta e discrepa ncy, second trimeste r;Record ed Elsewher e: No Locat ion: Aliyahmyriam e [facility] S ource: EHR Swabber doris: N Jairti ce ID: 0001 Roel lable Time: 10:45:00 AM Emma conrad, [facility] 10:31:[address] Concept Completed 201909/23/2021 Decrease d movement s, third trimeste r, unsp;Rec orded Elsewher e: No Locat ion: [facility]nn [facility] S ource: EHR Swabber doris: N Jairti ce ID: 0001 Roel lable Time: 11:30:00 AM Emma conrad [facility] 10:31:14 Prematur e rupture of membrane s [id number] Completed 201909/23/2021 Evelin ROM, 7th0 betw rupt & onst labr, unsp weeks of gest;Pra ctice ID: 0001 Emma conrad, [facility] 10:30:51 Gestatio n period, 32 weeks [id number] Completed 201909/23/2021 32 weeks gestatio n of pregnanc y;Record ed Elsewher e: No Locat ion: Curtis [facility] S ource: EHR Swabber doris: N Practi ce ID: 0001 Roel lable Time: 11:00:00 AM Emma conrad, [facility] 10:29:30 Gestatio n period, 33 weeks [id number] Completed 201909/23/2021 33 weeks gestatio n of pregnanc y;Record ed Elsewher e: No Locat ion: [facility] S ource: EHR Swabber doris: N Practi ce ID: 0001 Roel lable Time: 03:00:00 PM Emam conrad, [facility] 1 10:29:32 Gestatio n period, 34 weeks [id number] Completed 201909/23/2021 34 weeks gestatio n of pregnanc y;Record ed Elsewher e: No [facility]: EHR Swabber doris: N Practi ce ID: 0001 Roel lable Time: 11:00:00 AM Emma conrad, [facility] 1 10:29:34 False labor before 37 complete d weeks of gestatio n [id number] Completed 201909/23/2021 False labor before 37 complete d weeks of gest, third tri;Prac dante ID: 0001 Emma conrad, [facility] 10:29:08 Gestatio n period, 35 weeks [id number] Completed 201909/23/2021 35 weeks gestatio n of pregnanc y;Record ed Elsewher e: No Locat ion: [facility] S ource: EHR Swabber doris: N Practi ce ID: 0001 Roel lable Time: 11:30:00 AM Emma conrad, [facility] 10:29:36 Gestatio nal diabetes mellitus [id number] Completed 201909/23/2021 Gestatio nal diabetes in pregnanc y, insulin controll ed;Recor ded Elsewher e: No Locat ion: Curtis vargas [facility] S ource: EHR Swabber doris: N Practi ce ID: 0001 Roel lable Time: 10:30:00 AM Emma conrad, [facility] 10:29:52 Gestatio n period, 36 weeks [id number] Completed 201909/23/2021 36 weeks gestatio n of pregnanc y;Practi ce ID: 0001 Emma conrad, [facility] 10:29:38 Pregnanc y-induce d hyperten bo Completed 201909/23/2021 Gestatio nal htn w/o signific ant proteinu anais, third trimeste r;Practi ce ID: 0001 Emma conrad, [facility] 10:30:49 Gestatio n period, 37 weeks [id number] Completed 201909/23/2021 37 weeks gestatio n of pregnanc y;Record ed Elsewher e: No Locat ion: [facility] S ource: EHR Swabber doris: N Practi ce ID: 0001 Roel lable Time: 10:30:00 AM Emma conrad, [facility] 10:29:40 False labor at or after 37 complete d weeks of gestatio n [id number] Completed 201909/23/2021 False labor at or after 37 complete d weeks of gestatio n;Practi ce ID: [id number] Emma conrad, [facility] 10:29:06 Gestatio n period, 38 weeks [id number] Completed 201909/23/2021 38 weeks gestatio n of pregnanc y;Record ed Elsewher e: No Locat ion: [facility] S ource: EHR Swabber doris: N Practi ce ID: [id number] Roel lable Time: 10:30:00 AM Emma conrad, [facility] 1 10:29:41 Term pregnanc y delivere d [id number] Completed 201909/23/2021 Encounte r for full-ter m uncompli cated delivery ;Practic e ID: [id number] Emma conrad, [facility] 10:31:36 Single live from singleto n pregnanc y [id number] Completed 201909/23/2021 Single live ;Pr actice ID: [id number] Emma Cordova [facility], [facility] 10:31:03 Gestatio n period, 39 weeks [id number] Completed 201909/23/2021 39 weeks gestatio n of pregnanc y;Practi ce ID: [id number] Emma Cordova [facility], [facility] 10:29:43 Past pregnanc y history of gestatio nal diabetes mellitus [id number] Active 2022 Tiffanie Flores MD [address], [place], [address], [facility] 3 19:36:59 Pregnanc y [id number] Completed 202208/16/2023 José Weber [place] [facility] 3 14:52:19 Gestatio nal diabetes mellitus 18525715 Completed 2022 h/o gdm2A. Checking BS QID, serial growth, antenata l testing José Weber [facility] 3 14:52:11 Problem Notes None recorded. Procedures Surgical History Date Name Laterality Status Provider Name and Address Organization Details Recorded Time 06/07/20 Dilation and Curettage completed Emily Millard [facility] 06/18/2025 14:42:30 02/14/20 25 Date of Last Pap Smear completed Tiffanie Boothe [facility] 06/01/2025 12:11:46 08/30/20 24 IUD Removal completed Maria T Carlton CNM [address], [place], [address], [facility] 08/31/2024 13:59:56 08/04/20 24 IUD Insertion completed Maria T aCrlton CNM [address], [place], [address], [facility] 08/05/2024 08:44:48 07/29/20 22 Hysteroscopy completed Maria T Carlton CNM [address], [place], [address], [facility] 07/29/2022 08:52:41 07/29/20 22 Hysteroscopy completed Emma Cordova [facility] 07/29/2022 08:35:27 07/21/20 22 IUD Removal completed Swetha Schwab [facility] 07/21/2022 12:21:30 04/17/20 20 IUD Insertion completed Swetha Schwab [facility] 04/17/2020 12:09:21 03/20/20 20 IUD Insertion completed Swetha Schwab [facility] 03/20/2020 12:11:51 11/22/19 18 Appendectomy completed Emma Cordova [facility] 10/01/2020 19:16:40 11/22/19 14 completed Kayla Fournier [facility] 10/08/2021 16:13:03 11/22/19 14 colonoscopy completed Emma Cordova [facility] 09/23/2021 10:34:09 11/22/19 13 Dilation and curettage completed Emma Cordova [facility] 09/23/2021 10:34:16 11/22/19 00 tonsillectomy completed Emma Cordova [facility] 09/23/2021 10:34:23 Imaging Results None recorded. Procedure Notes None recorded. Medical Equipment None Reported. Allergies Allergen ID Allergen Name Allergen Category Reaction Reaction Severity Criticality Documentation Date Start Date Code Code System Note Provider Name and Address Organization Details Recorded Time prednison e medicatio n Not available Not available Not available 01/05/2023 8640 RxNorm Emma conrad [facility] 3 10:49:28 2666 amoxicill in medicatio n Not available Not available Not available 10/01/2020 723 RxNorm Emma conrad [facility] 1 10:27:49 97326 aluminum aspirin Not available Not available Not available Not available 10/08/20252020 611 RxNorm unrec ogniz ed react ion (text : Other , code: 64935 07) (from [facility]) Not Available [place] - External Data Service - prod 5 09:39:58 91 aspirin medicatio n Not available Not available Not available 03/04/2020 1191 RxNorm Caterina conrad [facility] 0 17:51:36 Medications Name Sig Start [...] Prescrib ed Elsewher e: No Locat ion: uCrtis vargas [facility] M odify By: [email or web address] z Encoun ter DateTime : 04/23/20 11:17:56 [...] Prescrib ed Elsewher e: No Locat ion: [facility] odify By: [email or web address] z Encoun [...] Prescrib ed Elsewher e: No Locat ion: [facility] odify By: annalisa turner DateTime [...] Prescrib ed Elsewher e: No Locat ion: [facility] odify By: senait palomo DateTime : 07/21/20 18 04:08:38 PM Not Available Not Available Not Available dicyclomi ne 20 mg tablet 10/01 completed Not Available Not Available Not Available betametha sone valerate 0.1 % topical cream apply by topical route every day a thin layer to the affected area(s) 02/01 completed Prescrib ed Elsewher e: No Locat ion: Curtis vargas [facility] odify By: [email or web address] z Encoun ter DateTime [...] Elsewher e: No Locat ion: Curtis vargas [facility] odify By: annalisa turner DateTime : 09/12/20 [...] ed Elsewher e: No Locat ion: [facility] odify By: jill palomo DateTime [...] Prescrib ed Elsewher e: No Locat ion: [facility] odify By: raul z Encoun ter DateTime : 09/02/20 15 09:21:34 AM Not Available Not Available Not Available norethind jatinder (contrace ptive) 0.35 mg tablet TAKE 1 TABLET BY MOUTH EVERY DAY 02/13 completed Not Available Not Available Not Available Zoloft 25 mg tablet take 1 tablet by oral route every day 03/29 completed Prescrib ed Elsewher e: No Locat ion: [facility] odify By: raul z Encoun [...] Prescrib ed Elsewher e: No Locat ion: [facility] odify By: annalisa turner DateTime [...] Prescrib ed Elsewher e: No Locat ion: [facility] odify By: amemmanuel palomo DateTime : 08/01/20 [...] Elsewher e: No Locat ion: Curtis vargas [facility] odify By: lexi correa DateTime : 12/08/19 [...] Prescrib ed Elsewher e: No Locat ion: [facility] odify By: [email or web address] Encounte r DateTime : 05/28/20 17 11:15:00 AM Not Available Not Available Not Available Humulin N NPH U-100 Insulin KwikPen 100 unit/mL (3 mL) subcutane ous 09/03 completed Not Available Not Available Not Available Fora K83-O47-F 10-D20 strips-la ncets 30 gauge combo pack checking BS QID fasting and 1hr pp 07/21 completed Prescrib ed Elsewher e: No Locat ion: [facility] odify By: [email or web address] Encounte r DateTime : 11/27/19 11:22:44 AM Not [...] Prescrib michele Zaman e: No Locat ion: Curtis vargas [facility] Renata odify By: annalisa turner DateTime : 09/13/20 [...] Updated DateTime 10/15/2025 157.48 cm 33.8 kg/m2 40359.59 g 119/73 mm[Hg] Emily Millard [place] - [facility] 10/15/2025 14:32:05 Date Recorded Body height Body mass index (BMI) Body weight Systolic And Diastolic Provider Name and Address Organization Details Last Updated DateTime 10/29/2025 157.48 cm 33.7 kg/m2 33532 g 124/80 mm[Hg] Xochilt Ayoubtyron [facility] 10/29/2025 11:25:23 Social History Question Answer Notes LastModified by Organizat ion Details LastModified Time Tobacco Smoking Status Former Smoker Emma Cordova [place], [facility] 10/01/2020 15:14:21 If You Are , What Was Your Level Of Alcohol Consumption Prior To ? Occasional Information not available 02/01/2023 Are You Blind Or Do You Have Difficulty Seeing? No [email or web address] Information not available 09/23/2021 What Is Your Level Of Caffeine Consumption? Occasional Information not available 10/29/2025 In The 14 Days Before Symptom Onset, Have You Had Close Contact With A Laboratory-confir med COVID-19 While That Case Was Ill? No [email or web address] Information not available 02/01/2023 In The 14 Days Before Symptom Onset, Have You Had Close Contact With A Person Who Is Under Investigation For COVID-19 While That Person Was Ill? No [email or web address] Information not available 02/01/2023 Have You Been To An Area Known To Be High Risk For COVID-19? No [email or web address] Information not available 02/01/2023 Are You Deaf Or Do You Have Serious Difficulty Hearing? No [email or web address] Information not available 09/23/2021 What Type Of Diet Are You Following? REGULAR [email or web address] Information not available 09/23/2021 What Is The Highest Grade Or Level Of School You Have Completed Or The Highest Degree You Have Received? [id number] Information not available 10/29/2025 What Was The Date Of Your Most Recent Tobacco Screening? 08/30/2024 [email or web address] Information not available 08/30/2024 Do You Use Protection During Sex? No [email or web address] Information not available 10/29/2025 Do You Use Your Seat Belt Or Car Seat Routinely? Yes [email or web address] Information not available 02/01/2023 Are You Sexually Active? Yes Information not available 10/29/2025 Do You Have Smoke And Carbon Monoxide Detectors In Your Home? Yes [email or web address] Information not available 02/01/2023 How Much Tobacco Do You Smoke? No [email or web address] Information not available 05/21/2020 Do You Use Sunscreen Routinely? Yes [email or web address] Information not available 02/01/2023 Has Tobacco Cessation Counseling Been Provided? No [email or web address] Information not available 02/01/2023 Do You Have Difficulty Walking Or Climbing Stairs? No [email or web address] Information not available 07/21/2022 Sex: Unknown Functional Status Question Answer Note LastModified by Organizat ion Details LastModified Time Do you use any illicit or recreational drugs? No [email or web address] Information not available 02/01/2023 Do you or have you ever used any other forms of tobacco or nicotine? No [email or web address] Information not available 02/01/2023 What is your level of alcohol consumption? None Information not available 02/01/2023 Do you or have you ever used smokeless tobacco? Never used smokeless tobacco Information not available 05/21/2020 Are you currently employed? No [email or web address] Information not available 10/29/2025 Are you able to walk independently without assistance or assistive devices? YESWOREST [email or web address] Information not available 09/23/2021 Are you able to care for yourself independently? Yes [email or web address] Information not available 07/21/2022 Do you have difficulty dressing, bathing, grooming, or toileting? No [email or web address] Information not available 07/21/2022 Do you or have you ever used e-cigarettes or vape? Never used electronic cigarettes [email or web address] Information not available 05/21/2020 What is your exercise level? Occasional walking jgumber Information not available 03/05/2020 Mental Status Question Answer Note LastModified by Organization D etails LastModified Time Do you feel stressed (tense, restless, nervous, or anxious, or unable to sleep at night)? [id number] [email or web address] Information not available 02/01/2023 Family History Relationship [...] Codes Diagnosis Note [id number] Swetha Schwab CNM [facility] [address] [address] 03/05/2020 14:17:28 03/07/2020 11:23:54 care 319385406 Z39.2 Continue to watch for signs/symp toms [...] today's plan if desired Contracept ion education 135460603 Z30.09 Discussed all control options and pt [...] IUD for 6-8 weeks post . [facility] [address],[place] [address] 03/20/2020 10:56:39 03/20/2020 12:28:56 Insertion of intrauterine contraceptive device 38144013 Z30.430 Vaginitis 89694574 N76.0 Discussed use of mild soap like [...] noted on exam. 5457 Swetha Schwab CNM [facility] [address] [address] 04/17/2020 10:28:01 04/17/2020 12:36:54 IUD check 575387593 Z30.431 Pt doing well. No complaints . Unable to see strings. U/S ordered. [id number] Venkat Valdez MD [facility] [address],[place] [address] 04/17/2020 10:50:50 04/17/2020 11:23:56 Mechanical complication of intrauterine contraceptive device 680111620 T83.39XA [id number] Maria T Carlton [facility] [address],[place] [address] 05/21/2020 10:26:33 05/21/2020 11:40:42 Vaginitis 44213869 N76.0 Mass of right breast 364 6530168 3466035 N63.10 [id number] Maria T Carlton [facility] [address],[place] [address] 10/01/2020 14:54:13 10/01/2020 17:52:14 Mastitis associated with 211288001 O91.23 [id number] Maria T Carlton [facility] [address],[place] [address] 09/23/2021 09:23:09 09/23/2021 11:11:03 Dysmenorrhea 886400648 N94.6 [id number] Venkat Valdez MD [facility] [address],[place] [address] 09/23/2021 09:21:32 09/23/2021 10:11:19 Pain in pelvis 92550550 R10.2 10942 [facility] [address],[place] [address] 09/24/2021 10:04:00 09/24/2021 11:52:09 [address] [place] [address] [address] 10/13/2021 09:38:43 10/13/2021 12:11:58 Gynecologic examination 96458061 Z01.419 Take Calcium with Vitamin D 1200mg [...] paper copy of today's plan if desired. 21301 Venkat Valdez MD [facility] [address],[place] [address] 11/03/2021 09:19:52 11/03/2021 12:45:09 Pain in pelvis 93679226 R10.2 30076 Venkat Valdez MD [facility] [address],[place] [address] 03/17/2022 11:51:43 03/17/2022 12:33:52 Pain in pelvis 09721280 R10.2 [id number] Venkat Valdez MD [facility] [address],[place] [address] 07/17/2022 13:14:21 07/17/2022 13:59:55 Uncertain viability of 634767687 O36.80X0 Z3A.00 [id number] Venkat Valdez MD [facility] [address],[place] [address] 07/17/2022 14:13:20 07/17/2022 14:30:02 test positive 824633111 Z32.01 Pt here with 3 faint positive [...] HCG. Pt verbalized undertstan chaparrita. ALEXEY jung [id number] Swetha Schwab [facility] [address],[place] [address] 07/21/2022 10:26:55 07/22/2022 03:50:54 Urinary symptoms 697296246 R39.9 Removal of intrauterine device 20977265 Z30.432 NO CHARGE VISITJie ble to remove. Will need to schedule surgical removal. Pt has specifical ly requested female. She has met [facility] the [facility] 750240859 Z30.9 Discussed all control options in great [...] verbalized understand ing. Planning removal of IUD. [id number] Maria T Carlton CNM [facility] [address],[place] [address] 07/24/2022 10:09:28 07/24/2022 12:56:34 Mechanical complication of intrauterine contraceptive device 916579658 T83.39XA [id number] Maria T Carlton CNM [facility] [address],[place] [address] 07/29/2022 08:31:32 07/29/2022 10:16:00 Screening procedure 46741933 Z13.9 Mechanical complication of intrauterine contraceptive device 293090676 T83.39XA [id number] Venkat Valdez MD [facility] [address],[place] [address] 12/24/2022 12:30:14 12/24/2022 13:38:57 Abdominal pain in early 412920657 Z33.1 Z3A.01 [id number] Tiffanie Flores MD [facility] [address],[place] [address] 01/05/2023 09:52:34 01/05/2023 11:08:07 [id number] Tiffanie Flores MD [facility] [address],[place] [address] 01/05/2023 09:52:55 01/07/2023 11:38:15 Amenorrhea 98498436 N91.2 test positive 025144059 Z32.01 Moderate h yperemesis gravidarum 130339466 O21.0 Maternal o besity complicating , childbirth and the puerperium, antepartum 9655463956 07 O99.211 bmi 38 Past pregn maryjane history of gestational diabetes mellitus 528667885 Z86.32 [id number] Tiffanie Flores MD [facility] [address],[place] [address] 01/20/2023 10:14:15 01/20/2023 10:44:31 [id number] Tiffanie Flores MD [facility] [address],[place] [address] 02/01/2023 11:22:12 02/01/2023 12:06:15 screening 471981021 Z36.82 [id number] Swetha Schwab CNM [facility] [address],[place] [address] 02/01/2023 11:23:56 02/02/2023 17:42:44 screening 260207149 Z36.89 Nausea and vomiting 1693 1999 R11.2 [id number] Venkat Valdez MD [facility] [address],[place] [address] 02/18/2023 12:23:48 02/18/2023 13:10:32 Abdominal pain in 923524870 O99.891 R10.9 Z3A.14 [id number] Swetha Schwab [facility] [address],[place] [address] 03/04/2023 10:53:15 03/04/2023 11:50:57 Routine care 476605278 Z34.92 [id number] Venkat Valdez MD [facility] [address],[place] [address] 03/09/2023 11:49:22 03/09/2023 13:36:29 Spotting per vagina in 744846275 O26.859 Z3A.17 [id number] Venkat Valdez MD [facility] [address],[place] [address] 03/24/2023 09:55:15 03/24/2023 11:17:49 screening 197316065 Z36.3 [id number] [facility] [address],[place] [address] 04/02/2023 10:39:24 04/02/2023 14:40:47 Routine care 630153768 Z34.92 [id number] [facility] [address],[place] [address] 04/28/2023 17:16:58 04/28/2023 18:36:35 Routine care 309571121 Z34.92 [id number] [facility] [address],[place] [address] 05/26/2023 12:36:23 05/26/2023 13:51:10 Routine care 689981454 Z34.92 [id number] [facility] [address],[place] [address] 06/09/2023 12:25:04 06/09/2023 13:00:34 Routine care 880299944 Z34.92 [id number] Venkat Valdez MD [facility] [address],[place] [address] 06/21/2023 12:25:43 06/21/2023 13:11:46 Abdominal pain in 083956031 O99.891 R10.9 Z3A.32 [id number] MD Cam Rajput [address],[place] [address] 06/25/2023 11:42:53 06/25/2023 12:39:59 Gestational diabetes mellitus class A2 06398519 O24.414 [id number] Maria T Carlton [facility] [address],[place] [address] 06/25/2023 11:43:21 06/25/2023 13:14:41 Routine care 069576100 Z34.92 Pruritic disorder 347733 002 L29.9 [id number] Venkat Valdez MD [facility] [address],[place] [address] 07/02/2023 11:59:27 07/02/2023 12:37:35 Gestational diabetes mellitus class A2 56231526 O24.414 [id number] [facility] [address],[place] [address] 07/02/2023 12:00:26 07/02/2023 14:15:10 Routine care 663769217 Z34.92 [id number] Venkat Valdez MD [facility] [address],[place] [address] 07/09/2023 11:54:33 07/09/2023 12:41:17 Gestational diabetes mellitus class A2 03532426 O24.414 [id number] [facility] [address],[place] [address] 07/09/2023 11:54:55 07/09/2023 13:40:47 Routine care 984436116 Z34.92 [id number] Venkat Valdez MD [facility] [address],[place] [address] 07/16/2023 11:31:37 07/16/2023 13:04:56 Gestational diabetes mellitus class A2 63613724 O24.414 [id number] Maria T Carlton [facility] [address],[place] [address] 07/16/2023 11:31:57 07/16/2023 13:50:03 Routine care 509002171 Z34.92 [id number] Venkat Valdez MD [facility] [address],[place] [address] 07/23/2023 11:55:24 07/23/2023 15:31:33 Gestational diabetes mellitus class A2 81333335 O24.414 [id number] Maria T Carlton [facility] [address],[place] [address] 07/23/2023 11:56:11 07/23/2023 14:20:32 Routine care 271981492 Z34.92 [id number] Maria T Carlton [facility] [address],[place] [address] 09/03/2023 10:37:34 09/03/2023 14:51:03 care 398077358 Z39.0 start slynd # samples given f/u wwe [id number] Maria T Carlton [facility] [address],[place] [address] 08/04/2024 14:02:09 08/05/2024 10:49:38 Screening procedure 37695977 Z13.9 Insertion of intrauterine contraceptive device 52615218 Z30.430 pt vinny well f/u one month iud check [id number] Venkat Valdez MD [facility] [address],[place] [address] 08/28/2024 14:06:50 08/28/2024 15:00:15 Pain in pelvis 27563558 R10.2 N93.9 [id number] [facility] [address] [place] [address] 08/28/2024 14:38:29 08/28/2024 14:54:07 Urinary symptoms 687855387 R39.9 [id number] Maria T Carlton CNM [facility] [address],[place] [address] 08/30/2024 18:12:03 08/31/2024 10:12:39 Screening procedure 52958111 Z13.9 Uses IUD (intrauterine device) contraception 403102413 Z97.5 Contracept ion care management 345685481 Z30.9 start slynd daily, give one month to be effective f/u wwe [id number] CLAUDETTE SINGH MD [facility] [address],[place] [address] 11/08/2024 16:19:39 11/13/2024 02:55:06 Cystocele 950550630 N81.10 - patient reports worsening bulging sensation, pelvic pain during intercours e- apex and posterior compartmen t well supported on exam; grade 2 cystocele noted- recommend pelvic floor PT as first line to strengthen pelvic floor muscles- may need further evaluation from urogyn if PT does not improve symptoms Irregular intermenstrual bleeding 57676961 N92.1 - periods previously well controlled with Slynd- no inciting events- no laceration s or abrasions on exam- will evaluate with pelvic US [id number] Venkat Valdez MD [facility] [address],[place] [address] 12/01/2024 11:57:07 12/01/2024 13:25:19 Abnormal uterine bleeding 7754227463 9100 N93.9 [id number] CLAUDETTE SINGH MD [facility] [address],[place] [address] 01/17/2025 15:22:43 01/18/2025 05:09:05 Reduced libido 9371992 R68.82 - patient reports long history of hypoactive sexual desire- symptoms present prior to pregnancie s- disruptive to relationsh ip with partner- no increased stress, no dyspareuni a- discussed no role for testostero ne supplement ation in premenopau alycia patients given risk of irreversib le side effects- discussed Mali yue, Addyi, and Vyleesi; patient would like to start Addyi therapy Dysmenorrhea 953925782 N 94.6 - patient reports periods are now regular on mini pill however still painful and heavy- pelvic US normal, no structural cause seen- suspicious for endometrio sis given cyclic heavy and painful bleeding- periods improved but not at ideal control on mini pill- Slynd not approved by insurance- will trial Orlissa for endometrio sis pain- rtc 2 months for med check [id number] KATLYN Nation [facility] [address] [address] 02/13/2025 16:23:26 02/14/2025 23:08:15 Gynecologic examination 34462614 Z01.419 WWEBC - condomsPap - done todaySTI [...] than 25 dietary consult advised. Questions answered. [id number] Venkat Valdez MD [facility] [address] [address] 06/01/2025 11:25:47 06/01/2025 12:15:53 Finding of menstrual bleeding 313610441 Z36.87 Z3A.01 049275 [id number] Maria T Carlton CNM [facility] [address] [address] 06/01/2025 11:26:27 06/01/2025 13:07:54 Threatened miscarriage 49408154 O20.0 63314 f/u hcg and possible USprecauti ons reviewedf/ u pending lab resultscal l if any bleeding [id number] Venkat Valdez MD [facility] [address],[place] [address] 06/07/2025 12:31:40 06/09/2025 03:53:07 [id number] Venkat Valdez MD [facility] [address],[place] [address] 06/18/2025 14:03:53 06/18/2025 15:21:47 Miscarriage 32572107 O03.9 87329 this patient presents for postop follow-up. She is 1 week postop from a suction D&C. She is recovering normally. Her bleeding is minimal. She has no foul-smell ing vaginal discharge. She denies any nausea, vomiting, fever, chills. We discussed contracept ion. We discussed future . She will follow up for a repeat test. [id number] Venkat Valdez MD [facility] [address],[place] [address] 10/08/2025 10:54:40 10/08/2025 11:44:42 Threatened miscarriage 79789115 O20.0 Z3A.01 10325 [id number] CLAUDETTE SINGH MD [facility] [address],[place] [address] 10/15/2025 13:26:38 10/15/2025 13:50:58 Complication occurring during 039160930 O99.891 Z3A.01 9095271091 [id number] Venkat Valdez MD [facility] [address],[place] [address] 10/15/2025 13:27:10 10/15/2025 14:59:28 Acute urinary tract infection 080768938 N39.0 283031 Gestationa l diabetes mellitus 65063845 O24.410 78551074 this patient is a 30-year-ol d female [...] 20 minutes on her care in total. [id number] CLAUDETTE SINGH MD [facility] [address] [address] 10/29/2025 10:23:11 10/29/2025 11:05:20 [id number] Maria T Carlton CNM [facility] [address] [address] 10/29/2025 10:58:16 10/29/2025 13:36:47 Amenorrhea 82874783 N91.2 47908 take pnv daily, pap up to datediscus sed with dr. valdez start 4 units lantis at [facility] have rn call next week for blood sugars, glucose log [id number] /11/25ok for excedrin migrainef/ u 3 weeks new ob and first look Health Concerns Section Related Observation LastModified by Organization Detai ls LastModified Time None Recorded Concern Status LastModified by Organization Details LastModified Time None Recorded Advance Directives Directive None Recorded Payers Insurance Date Sequence Insurance Name Policy Number Policy Horne Covered Member ID Horne Member ID Guarantor Name 11/06/2025 1 [employer] [id number] 1 Buddy Yusuf [id number] Mariel Yusuf 10/02/2025 PAYMENT PLAN Mariel Yusuf 05/02/2025 1 [facility] (MEDICAID HMO) [id number] Mariel Gilbert [id number] Mariel Yusuf Notes Date Note Type Note [...] total. Venkat Valdez MD [address], [place], [address], [facility] 10/15/2025 14:58:31 10/29/2025 text/html ROS as noted in the HPI hx recent miscarriage, now amenorrhea, US todayhx gdm, quiroz started checking blood sugars, all fastings elevated Maria T Carlton CNM [address], [place], [address], [facility] 10/29/2025 13:29:56 OBGyn Episode Ob Episode Information Episode Created Date Number of Fetuses Patient Bloodtype Patient rh Status Prepregnancy Weight lbs Domestic Partner Domestic Partner Phone Father Name Director Of Income Tax Status 03/05/20 20 1 CLOSED Fetus Data [...] Domestic Partner Domestic Partner Phone Father Name Director Of Income Tax Status 03/05/20 20 1 CLOSED Fetus Data [...] Domestic Partner Domestic Partner Phone Father Name Director Of Income Tax Status 03/05/20 20 1 CLOSED Fetus Data [...] Domestic Partner Domestic Partner Phone Father Name Director Of Income Tax Status 03/05/20 20 1 CLOSED Fetus Data [...] Domestic Partner Domestic Partner Phone Father Name Director Of Income Tax Status 03/05/20 20 1 CLOSED Fetus Data [...] Domestic Partner Domestic Partner Phone Father Name Director Of Income Tax Status 02/02/20 23 1 A Positive 213 buddy Poirrie r CLOSED Fetus Data First Name Last Name Admitted to NICU Weight (g) Sex Living Outcome Pediatric Complications Fetus ID Race Codes Race Delivery Type [phone] 85 M true Full Term ASSISTED DELIVERY, CPAPx2 min, forwarder operator at delivery [id number] Vacuum Assisted Vaginal Delivery Problems Problem Notes low TSH - repeat 16wks/21- neuro appt with Dr. Zamora Appt: 06/22/23 u/s & NST 1030aMFM rec: GDM: BS QID, NPH 6 units AM, 14 units HS, 4 units with lunch, and 2 units with dinner, weekly CDE check ins, BID kick counts 28wks, 32 week twice wkly NST, weekly BPP, serial growth u/s, 2 hr gtt 4wks PP, BF rec. Obesity: serial growth, testing.Hx shoulder dystocia: [facility] consult 36-37 wks repeat growth at 36 wks to discuss vaginal delivery safety.Subclinical hyperthyroid: repeat TSH 3r trimesterNeurology in April, consider daily magnesium supplement, PTL, pre-e precautionsPer pt: NST @ [facility] Tuesdays [place] [facility] [place] Problem Name Start Date End Date Resolution Snomed Code Not e Cholestasis [id number] 07/07 - P er Scarlett with [facility] - she spoke with Dr. Dangelo and to cont ursodiol and anticipate/assume cholestasis based on presentation. Rpt labs next week before [facility] appt on 07/21. Might recommend 37-38wk del Gestational diabetes mellitus 02/18/2023 [id number] h/o gdm2A. [facility] king LUIS QID, serial growth, testing Gestational diabetes mellitus class A2 [id number] 5u NPH AM, 5u Lispro Lunch, 15u NPH @ HS - [facility] 03/31 [facility] Isidro Calculation Initial Isidro Date Initial [...] Weight in lbs Pre/Post Dialysis Refused Weight 213.866401186679 BP Diastolic BP Location Tested BP Systolic [...] Present Fetus Movement Comments Flowsheet Date 03/04/2023 Guerar Score Blood Edema Fundus Height Fundus Units Glucose Ketones Leukocytes Nitrite Labor Signs Protein Cervic Dilation Cervic Effacement Cervic Station neg none none trace Type Weight in lbs Pre/Post Dialysis Refused Weight 210.755668549388 BP Diastolic BP Location Tested BP Systolic [...] Weight in lbs Pre/Post Dialysis Refused Weight 207.593854501159 BP Diastolic BP Location Tested BP Systolic [...] MFM, labs and urine culture today per [facility]. MFM managing blood sugars Flowsheet Date 04/28/2023 Guerra Score Blood Edema Fundus Height Fundus Units Glucose Ketones Leukocytes Nitrite Labor Signs Protein Cervic Dilation Cervic Effacement Cervic Station neg none none trace Type Weight in lbs Pre/Post Dialysis Refused Weight 209.084474404816 BP Diastolic BP Location Tested BP Systolic [...] Weight in lbs Pre/Post Dialysis Refused Weight 212.26141720001 BP Diastolic BP Location Tested BP Systolic BP Type 75 138 Fetus Heart Rate Present A 146 Present Fetus Movement A Yes Comments patient is having excessive thirst, cramping, pressure, numbness in legs, back pain, discharge, nausea and vomiting. reviewed precautions, EFW per pt at [facility] 50%, have been changing her insulin, [...] Weight in lbs Pre/Post Dialysis Refused Weight 212.41935313883 BP Diastolic BP Location Tested BP Systolic [...] Weight in lbs Pre/Post Dialysis Refused Weight 214.327981550883 BP Diastolic BP Location Tested BP Systolic BP Type 78 126 Fetus Heart Rate Present Fetus Movement A Yes Comments patient is having stomach pa in, back pain, cramping, discharge, swelling, nausea, vomiting, and itching. growth increased, consult at [facility], will check bile acids and start [...] Weight in lbs Pre/Post Dialysis Refused Weight 215.698838625208 BP Diastolic BP Location Tested BP Systolic [...] Weight in lbs Pre/Post Dialysis Refused Weight 215.978353319490 BP Diastolic BP Location Tested BP Systolic [...] Weight in lbs Pre/Post Dialysis Refused Weight 217.969473193563 BP Diastolic BP Location Tested BP Systolic [...] Weight in lbs Pre/Post Dialysis Refused Weight 218.705633937171 BP Diastolic BP Location Tested BP Systolic [...] At Estimated Date of Delivery false Thalassemia (Greenlandic, Tanzanian, Mediterranean, Or Background): MCV < 80 false Neural Tube Defect (Meningom yelocele, Spina Bifida, Or Anencephaly) false Congenital Heart Defect false Down Syndrome false Driss-Sachs (eg, Islam, Cajun, Macedonian-Palauan) f alse Mariluz Disease false Sickle Cell Disease Or Trait () false Hemophilia Or Other Blood Disorders false Muscular Dystrophy false Cystic Fibrosis false [place]'s Chorea false Intellectual Disability/Autism false If Yes, [...] Domestic Partner Domestic Partner Phone Father Name Director Of Income Tax Status 06/18/20 25 1 CLOSED Fetus Data First Name Last Name Admitted to NICU Weight (g) Sex Living Outcome Pediatric Complications Fetus ID Race Codes Race Delivery Type , Spontane ous [id number] Isidro Calculation Initial Isidro Date Initial Exam [...]
--- OUTSIDE RECORDS SUMMARY | 2025-11-11 22:27 | XMS_ITS | Continuity of Care Document ---
Author Organization [facility], [facility] Address [address] [place] [address] Care Team Providers Care Machine Pecan Gatherer Name Role Phone ZHOU SWAIN Primary Care [...] t Abnor mal: No Resul ting Lab: [facility] [address] [facility] [address] Tel: CULTU RE ----- ----- ----- --- Cultu re resul t (>=3 organ isms prese nt) indic ates possi ble conta minat ion. Repea t cultu re if sympt oms indic ate. Not Available [facility] (Lab) [address], [place], [address], 10/10/2025 08:41:21 10/08/20 25 10/08/2025 US, obste tric, trans vagin al No observ ation record ed. [email or web address] [place] [address], [place], [address], 10/08/2025 15:50:26 10/08/20 25 10/08/2025 US, obste tric, trans vagin al No observ ation record ed. [email or web address] Nydia [address], [place], [address], 10/08/2025 20:28:04 10/15/20 25 10/15/2025 US, obste tric, trans vagin al No observ ation record ed. [email or web address] [place] [address], [place], [address], 10/15/2025 14:43:23 10/15/20 25 10/15/2025 US, obste tric, trans vagin al No observ ation record ed. [email or web address] Nydia [address], [place], [address], 10/15/2025 15:11:39 10/29/20 25 10/29/2025 US, obste tric, 1st trime ster No observ ation record ed. [email or web address] Nydia [address], [place], [address], 10/29/2025 17:12:57 Result Notes None recorded. Problems Name Problem SNOMED Code Status Onset Date Resolution Date Notes Provider Name and Address Organization Details Recorded Time Gestatio nal diabetes mellitus class A2 77443905 Completed 5u NPH AM, 5u Lispro Lunch, 15u NPH @ [facility] 03/31 [facility] Rosa Elena Weber [place], [place] - [facility] 14:52:11 Cholesta sis [id number] Completed 07/07 - Per Scarlett with MFM - she spoke with Dr. Dangelo and to cont ursodiol and anticipa te/assum e cholesta sis based on presenta tion. Rpt labs next week before MFM appt on 07/21. Might recommen d 37-38wk alena José Weber [facility] 3 14:52:12 Amenorrh ea [id number] Completed 201409/23/2021 AMENORRH EA;Pract ice ID: 0001 Emma Cordova [facility] 1 10:28:02 Speciali zed medical examinat ion Completed 201409/23/2021 Routine gynecolo gical examinat ion;Prac dante ID: 0001 Emma Cordova [facility] 1 10:31:25 Pregnanc y test positive [id number] Completed 201409/23/2021 Positive Pregnanc y Test;Pra ctice ID: 0001 Emma Cordova [facility] 10:30:38 Uterine size for dates discrepa ncy [id number] Completed 201409/23/2021 UTERINE SIZE MEG-ANTE PAR;Prac dante ID: 0001 Emma Cordova [facility], [facility] 1 10:31:47 Mild hypereme sis-not delivere d [id number] Completed 201409/23/2021 Hypereme sis gravidar um, antepart um Mild;Pra ctice ID: 0001 Emma Cordova [facility] 1 10:30:08 Nausea and vomiting [id number] Completed 201409/23/2021 Nausea with vomiting ;Practic e ID: 0001 Emma Cordova [facility], [facility] 1 10:30:09 Syncope and collapse [id number] Completed 201409/23/2021 Syncope and collapse ;Practic e ID: 0001 Emma conrad [facility] 10:31:31 Antenata l screenin g Completed 201409/23/2021 ANTENATA L SCREENIN G NEC;Prac dante ID: 0001 Emma Cordova [place] [facility] 10:28:04 Primigra parisa [id number] Completed 201409/23/2021 Supervis ion of normal first pregnanc y;Practi ce ID: 0001 Emma Cordova [facility] 10:30:56 anatomy study Completed 201409/23/2021 [facility] ANAT SURVEY;P ractice ID[facility] 0001 [facility] 10:29:10 Complica tion of pregnanc y, childbir th and/or puerperi um [id number] Completed 201409/23/2021 OTH CURR COND-ANT EPARTUM; Practice ID[facility] 0001 [facility] 10:28:17 Pregnanc y, childbir th and puerperi um finding Completed 201409/23/2021 Encntr for suprvsn of normal first preg, third trimeste r;Practi ce ID: 0001 [facility] 10:30:41 Urinary tract infectio us disease [id number] Completed 201409/23/2021 Urinary tract infectio n, site not specifie d;Practi ce ID: 0001 Emma Cordova [place] [facility] 10:31:42 Eruption [id number] Completed 201409/23/2021 Rash;Rec orded Elsewher e: No Locat ion: [facility] S ource: EHR Director Of Development doris: N Practi ce ID: 0001 Roel lable Time: 03:30:00 PM Emma conrad, [facility] 1 10:28:58 Pregnanc y, childbir th and puerperi um finding Completed 201409/23/2021 Oth pregnanc y related conditio ns, third trimeste r;Practi ce ID: 0001 Emma conrad, [facility] 1 10:28:13 Noninfec tious enteriti s of intestin e Completed 201409/23/2021 Gastroen teritis; Recorded Elsewher e: No [facility]at [facility]: EHR Director Of Development doris: N Practi ce ID: 0001 Roel lable Time: 02:30:00 PM Emma conrad, [facility] 1 10:30:00 prematur e rupture of membrane s [id number] Completed 201409/23/2021 Pretrm evelin ROM, unsp time betw rupt and onst labr, 3rd tri;Prac dante ID: 0001 Emma conrad, [facility] 1 10:30:54 Lochia finding Completed 201509/23/2021 Encounte r for routine postpart um follow-u p;Record ed Elsewher e: No Locat ion: [facility] S ource: EHR Director Of Development doris: N Practi ce ID: 0001 Roel lable Time: 01:00:00 PM Emma conrad, [facility] 1 10:30:[address] Concept Completed 201509/23/2021 Encounte r for surveill ance of other contrace ptives;R ecorded Elsewher e: No Locat ion: [facility] S ource: EHR Director Of Development doris: N Practi ce ID: 0001 Roel lable Time: 01:00:00 PM Emma Brittontz [place] [facility] 1 10:31:20 Sexually transmit cra infectio us disease [id number] Completed 201509/23/2021 STD;Romulo rded Elsewher e: No Locat ion: [facility] S ource: EHR Director Of Development doris: N Jairrodney ce ID: 0001 Roel lable Time: 10:30:00 AM Emma Brittontz [place] [facility] 1 10:31:01 Uses combined oral contrace ption [id number] Completed 201609/23/2021 Encounte r for initial prescrip tion of contrace ptive pills;Re corded Elsewher e: No Locat ion: [facility] S ource: EHR Director Of Development doris: Marjorie Ab ce ID: 0001 Roel lable Time: 08:30:00 AM Emma Cordova [place] [facility] 1 10:28:15 Procedur e Completed 201609/23/2021 Encounte r for checking , reinsert ion or removal of implanta ble subderma l contrace ptive;Re corded Elsewher e: No Locat ion: [facility] S ource: EHR Director Of Development doris: Marjorie Adamrodney ce ID: 0001 Roel lable Time: 08:30:00 AM Emma Cordova [place] [facility] 1 10:30:58 Infectio n screenin g Completed 201609/23/2021 Encounte r for screenin g for oth infec/pa rastc diseases ;Recorde d Elsewher e: No Locat ion: [facility] S ource: EHR Director Of Development doris: Marjorie Adamrodney ce ID: 0001 Roel lable Time: 11:00:00 AM Emma Cordova [place] [facility] 1 10:29:58 Acute vaginiti s [id number] Completed 201609/23/2021 Acute vaginiti s;Record ed Elsewher e: No Locat ion: [facility] S ource: EHR Director Of Development doris: N Practi ce ID: 0001 Roel lable Time: 11:00:00 AM Emma conrad, [facility] 1 10:28:00 Vaginola bial hernia Completed 201609/23/2021 Other specifie d noninfla mmatory disorder s of vagina;R ecorded Elsewher e: No Locat ion: [facility] S ource: EHR Director Of Development doris: N Practi ce ID: 0001 Roel lable Time: 11:00:00 AM Emma conrad, [facility] 1 10:31:49 Counseli ng for harmful pattern of substanc e use Completed 201609/23/2021 Tobacco abuse counseli ng;Recor ded Elsewher e: No Locat ion: [facility] S ource: EHR Director Of Development doris: N Practi ce ID: 0001 Roel lable Time: 11:00:00 AM Emma conrad, [facility] 1 10:31:[address] Concept Completed 201609/23/2021 Encntr for general adult medical exam w/o abnormal findings ;Recorde d Elsewher e: No Locat ion: [facility] S ource: EHR Director Of Development doris: N Practi ce ID: 0001 Roel lable Time: 11:00:00 AM Emma conard, [facility] 1 10:31:16 Increase d frequenc y of urinatio n [id number] Completed 201609/23/2021 Frequenc y of micturit ion;Romulo rded Elsewher e: No Locat ion: [facility] S ource: EHR Director Of Development doris: N Practi ce ID: 0001 Roel lable Time: 11:15:00 AM Emma conrad [facility] 1 10:29:56 Pregnanc y detectio n examinat ion Completed 201709/23/2021 Encounte r for pregnanc y test, result positive ;Recorde d Elsewher e: No Locat ion: [facility] S ource: EHR Director Of Development doris: N Practi ce ID: 0001 Roel lable Time: 02:15:00 PM Emma Cordova [place], [facility] 1 10:30:18 Finding of regulari ty of menstrua l cycle Completed 201709/23/2021 Irregula r bleeding ;Recorde d Elsewher e: No Locat ion: [facility]: N Jairti ce ID: 0001 Roel lable Time: 02:15:00 PM Emma conrad, [facility] 1 10:29:18 Cyst of ovary Completed 201709/23/2021 Unspecif ied ovarian cyst, unspecif ied side;Rec orded Elsewher e: No [facility] d[facility]: N Practi ce ID: 0001 Role lable Time: 11:00:00 AM Emma Cordova [place], [facility] 1 10:28:44 Syphilis test finding [id number] Completed 201709/23/2021 Encntr screen for infectio ns w sexl mode of transmis s;Record ed Elsewher e: No [facility]at [facility]: EHR Director Of Development doris: N Practi ce ID: 0001 Roel lable Time: 11:00:00 AM Emma Cordova [place], [facility] 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 10:31:18 Body mass index 30+ - obesity [id number] Completed 201709/23/2021 Body mass index (BMI) 32.0-32. 9, adult;Re corded Elsewher e: No [facility]at [facility]: [facility] doris: N Jairti ce ID: 0001 Roel lable Time: 11:00:00 AM Emma conrad, [facility] 10:28:11 Finding of pattern of menstrua l cycle Completed 201709/23/2021 Excessiv e and frequent menstrua tion with irregula r cycle;Re corded Elsewher e: No [facility]at [facility]: [facility] doris: N Jairti ce ID: 0001 Roel lable Time: 01:00:00 PM Emma conrad, [facility] 10:29:16 Mammogra phic calcific ation of breast [id number] Completed 201709/23/2021 Mammogra phic calcifcn found on diagnost ic imaging of breast;R ecorded Elsewher e: No [facility]at [facility]: [facility] doris: N Ab ce ID: 0001 Roel lable Time: 01:00:00 PM Emma conrad, [facility] 10:30:05 Pain in female genitali a Completed 201709/23/2021 Dysmenor jannette, unspecif ied;Romulo rded Elsewher e: No Locat ion: [facility] S ource: [facility] doris: N Jairti ce ID: 0001 Roel lable Time: 01:00:00 PM Emma conrad [facility] 1 10:30:13 Depressi ve disorder [id number] Completed 201709/23/2021 Major depressi ve disorder , single episode, unspecif ied;Romulo rded Elsewher e: No Locat ion: [facility] S ource: EHR Director Of Development doris: N Jairti ce ID: 0001 Roel lable Time: 09:00:00 AM Emma Cordova [facility], [facility] [address] 10:28:[address] Concept Completed 201709/23/2021 Anxiety disorder , unspecif ied;Romulo rded Elsewher e: No Locat ion: [facility]: N Jairti ce ID: 0001 Roel lable Time: 09:45:00 AM Emma Cordova [facility], [facility] 1 10:31:09 Pregnanc y test negative [id number] Completed 201709/23/2021 Encounte r for pregnanc y test, result negative ;Recorde d Elsewher e: No Locat ion: [facility] S ource: EHR Director Of Development doris: N Jairti ce ID: 0001 Roel lable Time: 09:45:00 AM Emma Cordova [facility], [facility] 1 10:30:36 Blood leukocyt e number above referenc e range [id number] Completed 201709/23/2021 Elevated white blood cell count, unspecif ied;Romulo rded Elsewher e: No Locat ion: [facility] S ource: EHR Director Of Development doris: N Jairti ce ID: 0001 Roel lable Time: 11:45:00 AM Emma Cordova [place], [facility] 10:29:54 Pelvic and perineal pain [id number] Completed 201709/23/2021 Pelvic and perineal pain;Rec orded Elsewher e: No Locat ion: [facility] S ource: EHR Director Of Development doris: N Jairti ce ID: 0001 Roel lable Time: 11:15:00 AM Emma Tasha [place], [facility] 1 10:30:16 Dysuria [id number] Completed 201709/23/2021 Dysuria; Recorded Elsewher e: No Locat ion: [facility] S ource: EHR Director Of Development doris: N Practi ce ID: 0001 Roel lable Time: 11:45:00 AM Emma Tasha [place], [facility] 1 10:28:56 Exposure to sexually transmis sible disorder Completed 201709/23/2021 Contact w and exposure to infect w a sexl mode of transmis s;Practi ce ID: 0001 Emma Cordova [place], [facility] 10:29:00 Gestatio n less than 9 weeks [id number] Completed 201809/23/2021 Less than 8 weeks gestatio n of pregnanc y;Record ed Elsewher e: No Locat ion: [facility] S ource: EHR Director Of Development doris: N Practi ce ID: 0001 Roel lable Time: 08:15:00 AM Emma Cordova [place], [facility] 10:29:22 Situatio n with explicit context Completed 201809/23/2021 Suprvsn of preg w poor reprodct v or obstet hx, first tri;Romulo rded Elsewher e: No Locat ion: [facility] S ource: EHR Director Of Development doris: N Practi ce ID: 0001 Roel lable Time: 08:15:00 AM Emma conrad, [facility] 1 10:31:07 Threaten ed miscarri age [id number] Completed 201809/23/2021 Threaten ed ;Recorde d Elsewher e: No Locat ion: [facility] S ource: EHR Director Of Development doris: N Practi ce ID: 0001 Roel lable Time: 10:30:00 AM Emma Cordova [place] [facility] 10:31:38 Blighted ovum [id number] Completed 201809/23/2021 Blighted ovum and nonhydat idiform mole;Rec orded Elsewher e: No Locat ion: [facility] S ource: EHR Director Of Development doris: Marjorie Berger ce ID: 0001 Roel lable Time: 10:30:00 AM Emma Cordova [place], [facility] 10:28:08 Finding of contents of cervix [id number] Completed 201809/23/2021 Weeks of gestatio n of pregnanc y not specifie d;Record ed Elsewher e: No Locat ion: [facility] S ource: EHR Director Of Development doris: Marjorie Berger ce ID: 0001 Roel lable Time: 10:30:00 AM Emma conrad, [facility] 10:29:13 Normal pregnanc y in multigra parisa [id number] 30021 Completed 201809/23/2021 Encounte r for suprvsn of normal pregnanc y, second trimeste r;Record ed Elsewher e: No Locat ion: [facility] S ource: EHR Director Of Development doris: Marjorie Berger ce ID: 0001 Roel lable Time: 05:00:00 PM Emma conrad [facility] 1 10:30:11 Antenata l screenin g for malforma tion Completed 201809/23/2021 Encounte r for antenata l screenin g for malforma tions;Re corded Elsewher e: No [facility] S ource: EHR Director Of Development doris: Marjorie Berger ce ID: 0001 Roel lable Time: 10:30:00 AM Emma conrad [facility] 1 10:28:06 Gestatio n period, 20 weeks [id number] Completed 201809/23/2021 20 weeks gestatio n of pregnanc y;Record ed Elsewher e: No Locat ion: [facility] S ource: EHR Director Of Development doris: N Jairti ce ID: 0001 Roel lable Time: 11:30:00 AM Emma conrad, [facility] 10:29:24 Finding of trunk structur e Completed 201909/23/2021 Oth diseases and conditio ns compl preg/chl dbrth;Re corded Elsewher e: No [facility]at [facility] S ource: EHR Director Of Development doris: N Jairti ce ID: 0001 Roel lable Time: 03:15:00 PM Emma conrad, [facility] 10:31:40 Gestatio n period, 29 weeks [id number] Completed 201909/23/2021 29 weeks gestatio n of pregnanc y;Record ed Elsewher e: No Locat ion: [facility] S ource: EHR Director Of Development doris: N Jairti ce ID: 0001 Roel lable Time: 03:15:00 PM Emma conrad, [facility] 10:29:27 Gestatio n period, 30 weeks [id number] Completed 201909/23/2021 30 weeks gestatio n of pregnanc y;Record ed Elsewher e: No Locat ion: [facility] S ource: EHR Director Of Development doris: N Practi ce ID: 0001 Roel lable Time: 10:45:00 AM Emma conrad [facility] 10:29:29 Uterine size for dates discrepa ncy Completed 201909/23/2021 Uterine size-neeta e discrepa ncy, second trimeste r;Record ed Elsewher e: No Locat ion: [facility] S ource: EHR Director Of Development doris: N Practi ce ID: 0001 Roel lable Time: 10:45:00 AM Emma conrad, [facility] 10:31:[address] Concept Completed 201909/23/2021 Decrease d movement s, third trimeste r, unsp;Rec orded Elsewher e: No Locat ion: [facility] S ource: EHR Director Of Development doris: N Jairti ce ID: 0001 Roel lable Time: 11:30:00 AM Emma conrad, [facility] 10:31:14 Prematur e rupture of membrane s [id number] Completed 201909/23/2021 Evelin ROM, 7th0 betw rupt & onst labr, unsp weeks of gest;Pra ctice ID: 0001 Emma conrad, [facility] 10:30:51 Gestatio n period, 32 weeks [id number] Completed 201909/23/2021 32 weeks gestatio n of pregnanc y;Record ed Elsewher e: No Locat ion: [facility] S ource: EHR Director Of Development doris: N Jairti ce ID: 0001 Roel lable Time: 11:00:00 AM Emma conrad, [facility] 10:29:30 Gestatio n period, 33 weeks [id number] Completed 201909/23/2021 33 weeks gestatio n of pregnanc y;Record ed Elsewher e: No Locat ion: [facility] S ource: EHR Director Of Development doris: N Practi ce ID: 0001 Roel lable Time: 03:00:00 PM Emma conrad, [facility] 10:29:32 Gestatio n period, 34 weeks [id number] Completed 201909/23/2021 34 weeks gestatio n of pregnanc y;Record ed Elsewher e: No Locat ion: [facility] S ource: EHR Director Of Development doris: N Practi ce ID: 0001 Roel lable Time: 11:00:00 AM Emma conrad, [facility] 10:29:34 False labor before 37 complete d weeks of gestatio n [id number] Completed 201909/23/2021 False labor before 37 complete d weeks of gest, third tri;Prac dante ID: 0001 Emma conrad, [facility] 10:29:08 Gestatio n period, 35 weeks [id number] Completed 201909/23/2021 35 weeks gestatio n of pregnanc y;Record ed Elsewher e: No Locat ion: [facility] S ource: EHR Director Of Development doris: N Practi ce ID: 0001 Roel lable Time: 11:30:00 AM Emma conrad, [facility] 10:29:36 Gestatio nal diabetes mellitus [id number] Completed 201909/23/2021 Gestatio nal diabetes in pregnanc y, insulin controll ed;Recor ded Elsewher e: No Locat ion: [facility]: N Practi ce ID: 0001 Roel lable Time: 10:30:00 AM Emma conrad, [facility] 10:29:52 Gestatio n period, 36 weeks [id number] Completed 201909/23/2021 36 weeks gestatio n of pregnanc y;Practi ce ID: 0001 Emam conrad, [facility] 10:29:38 Pregnanc y-induce d hyperten bo Completed 201909/23/2021 Gestatio nal htn w/o signific ant proteinu anais, third trimeste r;Practi ce ID: 0001 Emma conrad, [facility] 10:30:49 Gestatio n period, 37 weeks [id number] Completed 201909/23/2021 37 weeks gestatio n of pregnanc y;Record ed Elsewher e: No Locat ion: [facility] S ource: EHR Director Of Development doris: N Practi ce ID: 0001 Roel lable Time: 10:30:00 AM Emma conrad [facility] 10:29:40 False labor at or after 37 complete d weeks of gestatio n [id number] Completed 201909/23/2021 False labor at or after 37 complete d weeks of gestatio n;Practi ce ID: 0001 Emma conrad, [facility] 10:29:06 Gestatio n period, 38 weeks [id number] Completed 201909/23/2021 38 weeks gestatio n of pregnanc y;Record ed Elsewher e: No [facility]at [facility] S ource: EHR Director Of Development doris: N Practi ce ID: 0001 Roel lable Time: 10:30:00 AM Emma conrad [facility] 10:29:41 Term pregnanc y delivere d [id number] Completed 201909/23/2021 Encounte r for full-ter m uncompli cated delivery ;Practic e ID: 0001 Emma conrad, [facility] 10:31:36 Single live from singleto n pregnanc y [id number] Completed 201909/23/2021 Single live ;Pr actice ID: 0001 Emma conrad, [facility] 10:31:03 Gestatio n period, 39 weeks [id number] Completed 201909/23/2021 39 weeks gestatio n of pregnanc y;Practi ce ID: 0001 Emma conrad, [facility] 1 10:29:43 Past pregnanc y history of gestatio nal diabetes mellitus [id number] Active 2022 Tiffanie Flores MD [address], [place], [address], [facility] 3 19:36:59 Pregnanc y [id number] Completed 202208/16/2023 José conrad, [facility] 3 14:52:19 Gestatio nal diabetes mellitus [id number] Completed 2022 h/o gdm2A. Checking BS QID, serial growth, antenata l testing José conrad, [facility] 3 14:52:11 Problem Notes None recorded. Procedures Surgical History Date Name Laterality Status Provider Name and Address Organization Details Recorded Time 06/07/20 25 Dilation and Curettage completed Emily Millard [facility] 06/18/2025 14:42:30 02/14/20 25 Date of Last Pap Smear completed Tiffanie Boothe [facility] 06/01/2025 12:11:46 08/30/20 24 IUD Removal completed Maria T Carlton CNM [address], [place], [address], [facility] [facility] 08/31/2024 13:59:56 08/04/20 24 IUD Insertion completed Maria T Carlton CNM [address], [place], [address], [facility] 08/05/2024 08:44:48 07/29/20 22 Hysteroscopy completed Maria T Carlton CNM [address], [place], [address], [facility] 07/29/2022 08:52:41 07/29/20 22 Hysteroscopy completed Emma Cordova [facility] 07/29/2022 08:35:27 07/21/20 22 IUD Removal [facility] 07/21/2022 12:21:30 04/17/20 20 IUD Insertion completed [facility] 04/17/2020 12:09:21 03/20/20 20 IUD Insertion completed [facility] 03/20/2020 12:11:51 11/22/19 18 Appendectomy completed [facility] 10/01/2020 19:16:40 11/22/19 14 completed Kayla Fournier [facility] 10/08/2021 16:13:03 11/22/19 14 colonoscopy completed [facility] 09/23/2021 10:34:09 11/22/19 13 Dilation and curettage completed [facility] 09/23/2021 10:34:16 11/22/19 00 tonsillectomy completed [facility] 09/23/2021 10:34:23 Imaging Results None recorded. Procedure Notes None recorded. Medical Equipment None Reported. Allergies Allergen ID Allergen Name Allergen Category Reaction Reaction Severity Criticality Documentation Date Start Date Code Code System Note Provider Name and Address Organization Details Recorded Time prednison e medicatio n Not available Not available Not available 01/05/2023 8640 RxNorm Emma conrad [facility] 3 10:49:28 2666 amoxicill in medicatio n Not available Not available Not available 10/01/2020 723 RxNorm Emma conrad [facility] 1 10:27:49 97001 aluminum aspirin Not available Not available Not available Not available 10/08/20252020 611 RxNorm unrec ogsam ed react ion (text : Other , code: 43933 07) (from [facility]) Not Available carlos - External Data Service - prod 5 09:39:58 91 aspirin medicatio n Not available Not available Not available 03/04/2020 1191 RxNorm Caterina Aquino [facility] 0 17:51:36 Medications Name Sig Start [...] Prescrib ed Elsewher e: No Locat ion: [facility] odify By: raul z Ethel [...] No Locat ion: [facility] M odify By: raul z Encoun [...] Prescrib ed Elsewher e: No Locat ion: [facility] M odify By: annalisa turner DateTime [...] Locat ion: [facility] odify By: [email or web address] Vargas ncorufus DateTime : 07/21/20 18 04:08:38 PM Not Available Not Available Not Available dicyclomi ne 20 mg tablet 10/01 completed Not Available Not Available Not Available betametha sone valerate 0.1 % topical cream apply by topical route every day a thin layer to the affected area(s) 02/01 completed Prescrib ed Elsewher e: No Locat ion: [facility] odify By: [email or web address] z Encoun ter DateTime [...] Prescrib ed Elsewher e: No Locat ion: [facility] theodore [facility] odify By: annalisa turner DateTime : 09/12/20 [...] Locat ion: [facility] odify By: jill palomo DateTime : 04/03/20 [...] Locat ion: [facility] odify By: raul Davenport ter DateTime : 09/02/20 09:21:34 AM Not Available Not Available Not Available norethind jatinder (contrace ptive) 0.35 mg tablet TAKE 1 TABLET BY MOUTH EVERY DAY 02/13 completed Not Available Not Available Not Available Zoloft 25 mg tablet take 1 tablet by oral route every day 03/29 completed Prescrib ed Elsewher e: No Locat ion: [facility] odify By: raul z Encoun ter DateTime [...] ed Elsewher e: No Locat ion: [facility] odify By: annalisa turner DateTime : 09/09/20 [...] Prescrib ed Elsewher e: No [facility] By: [email or web address] Theodore stacia DateTime : [...] No Locat ion: [facility] odify By: lexi correa DateTime : 12/08/19 [...] No Locat ion: [facility] odify By: [email or web address] Dharmesh turner DateTime : 05/28/20 11:15:00 AM Not Available Not Available Not Available Humulin N NPH U-100 Insulin KwikPen 100 unit/mL (3 mL) subcutane ous 09/03 completed Not Available Not Available Not Available Fora A02-C06-M 10-D20 strips-la ncets 30 gauge combo pack checking BS QID fasting and 1hr pp 07/21 completed Prescrib ed Elsewher e: No Locat ion: [facility] odify By: rubi turner DateTime : 11/27/19 [...] Junie e: No Locat ion: [facility] odify By: annalisa turner DateTime : 09/13/20 [...] Updated DateTime 10/29/2025 157.48 cm 33.7 kg/m2 19733 g 124/80 mm[Hg] Xochilt Tubbs [facility] 10/29/2025 11:25:23 Social History Question Answer Notes LastModified by Organizat ion Details LastModified Time Tobacco Smoking Status Former Smoker Emma conrad, [facility] 10/01/2020 15:14:21 If You Are , What Was Your Level Of Alcohol Consumption Prior To ? Occasional [email or web address] Information not available 02/01/2023 Are You Blind Or Do You Have Difficulty Seeing? No [email or web address] Information not available 09/23/2021 What Is Your Level Of Caffeine Consumption? Occasional [email or web address] Information not available 10/29/2025 In The 14 Days Before Symptom Onset, Have You Had Close Contact With A Laboratory-confir med COVID-19 While That Case Was Ill? No Information not available 02/01/2023 In The 14 Days Before Symptom Onset, Have You Had Close Contact With A Person Who Is Under Investigation For COVID-19 While That Person Was Ill? No [email or web address] Information not available 02/01/2023 Have You Been To An Area Known To Be High Risk For COVID-19? No [email or web address] Information not available 02/01/2023 Are You Deaf Or Do You Have Serious Difficulty Hearing? No [email or web address] Information not available 09/23/2021 What Type Of Diet Are You Following? REGULAR [email or web address] Information not available 09/23/2021 What Is The Highest Grade Or Level Of School You Have Completed Or The Highest Degree You Have Received? DC55149-5 [email or web address] Information not available 10/29/2025 What Was The Date Of Your Most Recent Tobacco Screening? 08/30/2024 [email or web address] Information not available 08/30/2024 Do You Use Protection During Sex? No [email or web address] Information not available 10/29/2025 Do You Use Your Seat Belt Or Car Seat Routinely? Yes [email or web address] Information not available 02/01/2023 Are You Sexually Active? Yes [email or web address] Information not available 10/29/2025 Do You Have Smoke And Carbon Monoxide Detectors In Your Home? Yes [email or web address] Information not available 02/01/2023 How Much Tobacco Do You Smoke? No Information not available 05/21/2020 Do You Use Sunscreen Routinely? Yes [email or web address] Information not available 02/01/2023 Has Tobacco Cessation Counseling Been Provided? No Information not available 02/01/2023 Do You Have Difficulty Walking Or Climbing Stairs? No [email or web address] Information not available 07/21/2022 Sex: Unknown Functional Status Question Answer Note LastModified by Organizat ion Details LastModified Time Do you use any illicit or recreational drugs? No [email or web address] Information not available 02/01/2023 Do you or have you ever used any other forms of tobacco or nicotine? No Information not available 02/01/2023 What is your level of alcohol consumption? None [email or web address] Information not available 02/01/2023 Do you or have you ever used smokeless tobacco? Never used smokeless tobacco [email or web address] Information not available 05/21/2020 Are you currently employed? No [email or web address] Information not available 10/29/2025 Are you able to walk independently without assistance or assistive devices? YESWOREST [email or web address] Information not available 09/23/2021 Are you able to care for yourself independently? Yes [email or web address] Information not available 07/21/2022 Do you have difficulty dressing, bathing, grooming, or toileting? No [email or web address] Information not available 07/21/2022 Do you or have you ever used e-cigarettes or vape? Never used electronic cigarettes [email or web address] Information not available 05/21/2020 What is your exercise level? Occasional walking jgumber Information not available 03/05/2020 Mental Status Question Answer Note LastModified by Organization D etails LastModified Time Do you feel stressed (tense, restless, nervous, or anxious, or unable to sleep at night)? [id number] [email or web address] Information not available 02/01/2023 Family History Relationship [...] ICD10 Code Diagnosis IMO Codes Diagnosis Note [id number] Venkat Gotti MD [place] [address],[place] [address] 10/08/2025 10:54:40 10/08/2025 11:44:42 Threatened miscarriage [id number] O20.0 Z3A.01 16611 [id number] CLAUDETTE SINGH MD [place] [address],[place] [address] 10/15/2025 13:26:38 10/15/2025 13:50:58 Complication occurring during [id number] O99.891 Z3A.01 [id number] Venkat Gotti MD [place] [address],[place] [address] 10/15/2025 13:27:10 10/15/2025 14:59:28 Acute urinary tract infection [id number] N39.0 575261 Gestationa l diabetes mellitus 91974649 O24.410 [id number] this patient is a 30-year-ol d female [...] 20 minutes on her care in total. [id number] CLAUDETTE SINGH MD [place] [address],[place] [address] 10/29/2025 10:23:11 10/29/2025 11:05:20 [id number] [facility] [address],[place] [address] 10/29/2025 10:58:16 10/29/2025 13:36:47 Amenorrhea [id number] N91.2 49764 take pnv daily, pap up to datediscus sed with dr. courtney roberts 4 units [facility] have rn call next week for blood sugars, glucose log [id number] /11/25ok for excedrin migrainef/ u 3 weeks new ob and first look Health Concerns Section Related Observation LastModified by Organization Detai ls LastModified Time None Recorded Concern Status LastModified by Organization Details LastModified Time None Recorded Payers Encounter Date Sequence Insurance Name Policy Number Policy Horne Covered Member ID Horne Member ID Guarantor Name 10/29/2025 1 [employer] [id number] Buddy Yusuf [id number] Mariel Yusuf Notes Date Note Type Note Provider Name a nd Address Organization Details Recorded Time 10/29/2025 text/html ROS as noted in the HPI hx recent miscarriage, now amenorrhea, [place] todayhx gdm, quiroz started checking blood sugars, all fastings elevated Maria T Carlton CNM [address], [place], [address], [place] - [facility] 10/29/2025 13:29:56 OBGyn Episode No OBEpisode recorded.
[2025-11-11 22:28] VITALS: BP 120/62; PULSE 90; RESP 20; TEMP 36.7; O2SAT 100
[2025-11-11] MEDS: SODIUM CHLORIDE 0.9% IV 1,000 ML 999 ML IV CONT (23:15)
[2025-11-11] MEDS: METOCLOPRAMIDE HCL INJ 10 MG/2 ML VIAL IV PUSH (23:15)
[2025-11-11 23:34] LABS: Hematocrit 40.6 % (37.0-47.0); Hemoglobin 14.1 g/dL (12.0-15.0); Immature Granulocyte Percent A 0.3 % (0-0.5); Lymphocytes Absolute Auto 1.80 K/mm3 (0.9-3.2); Mean Corpuscular HGB Conc 34.7 g/dl (32-36); Mean Corpuscular Hemoglobin 29.9 pg (26-34); Mean Corpuscular Volume 86.0 fl (80-100); Nucleated Red Blood Cells Absolute Auto 0.000 K/mm3 (0.0-0.012); Nucleated Red Blood Cells Perc 0.0 % (0.0-0.2); Platelet Count Result 248 k/mm3 (150-375); Red Blood Count 4.72 M/mm3 (4.2-5.4); White Blood Count 6.0 K/mm3 (4.5-10.0)
[2025-11-11 23:39] LABS: Add Urine Microscopic? YES; Appearance Urine Clear (Clear); Glucose Urine UA Negative (Negative); Leukocyte Esterase Ur Trace LEU/UL (Negative); Nitrate Urine Negative (Negative); Non Pathogenic Casts 0-2; Specific Grav Ur 1.008 (1.001-1.035)
--- OUTSIDE RECORDS SUMMARY | 2025-11-12 00:03 | XMS_ITS | Clinical Summary ---
Author Organization [address] Address [address] [place] [id number] Care Team Providers Care Events Assistant Name Role Phone Unavailable Primary Care [...] Nausea/Vomitin g. 14 Suppository 1 2:08 PM [facility] 11/09/20 25 Active metoclopramide HCl (REGLAN) 5 mg tablet Take 5 mg by mouth 4 times daily before meals and at bedtime. 025 Discontinu ed(Alterna te therapy prescribed ) Encounters Date Type Department Care Team Description 11/09/2025 11:18 AM CAUSTIC CRESYLATE SHIFT SUPERINTENDENT - 11/09/2025 2:00 PM [facility] Emergency [facility] Obstetrics Emergency Department [address] [place] [address] Kajal Hernandez CNM Hyperemesis gravidarum [...] worry about transportation for future doctor visits, pickling grader medication, etc.? No 2024 Housing Stability Answer [...] on file Legal Sex Female 1:50 PM [employer]USTIC CRESYLATE SHIFT SUPERINTENDENT Gender Identity Not on file Sexual Orientation Not on file Last Filed Vital Signs Vital Sign Reading Time Taken Comments Blood Pressure 126/59 11/09/2025 1:58 PM [employer] CRESYLATE SHIFT SUPERINTENDENT Pulse 104 11/09/2025 1:58 PM [employer] CRESYLATE SHIFT SUPERINTENDENT Temperature 37.1 C (98.7 F) 11/09/2025 1:58 PM [employer] CRESYLATE SHIFT SUPERINTENDENT Respiratory Rate 16 11/09/2025 1:58 PM [employer]UST[employer] CRESYLATE SHIFT SUPERINTENDENT Oxygen Saturation 98% 11/09/2025 1:58 PM CAUSTIC CRESYLATE SHIFT SUPERINTENDENT Inhaled Oxygen Concentration - - Weight 79.8 kg (176 lb) 11/09/2025 11:15 AM CAUSTIC CRESYLATE SHIFT SUPERINTENDENT Height 157.5 cm (5' 2) 11/09/2025 11:15 AM CAUSTIC CRESYLATE SHIFT SUPERINTENDENT Body Mass Index 32.19 11/09/2025 11:15 AM CAUSTIC CRESYLATE SHIFT SUPERINTENDENT Plan of Treatment Upcoming Encounters Date Type Department Care Team (Late st Contact Info) Description 12/12/2025 10:00 AM CAUSTIC CRESYLATE SHIFT SUPERINTENDENT Ancillary Procedure [facility] [address] [place] [address] 12/12/2025 10:45 AM CAUSTIC CRESYLATE SHIFT SUPERINTENDENT Initial [facility] [address] [place] [address] Pau Gray MD [address] [place] [address] Health Maintenance Due Date Last Done Comments [...] URINALYSIS W/REFLEX MICROSCOPIC Stat 11/09/2025 12:08 PM CAUSTIC CRESYLATE SHIFT SUPERINTENDENT COMPREHENSIVE METABOLIC PANEL Stat 11/09/2025 12:08 PM CAUST[employer] CRESYLATE SHIFT SUPERINTENDENT CBC WITH DIFFERENTIAL Stat 11/09/2025 12:08 PM CAUSTIC CRESYLATE SHIFT SUPERINTENDENT POC , URINE Stat 11/09/2025 10:52 AM CAUSTIC CRESYLATE SHIFT SUPERINTENDENT from Last 3 Months Results * (ABNORMAL) CBC WITH DIFFERENTIAL (11/09/2025 12:08 PM CAUSTIC CRESYLATE SHIFT SUPERINTENDENT) WBC 5.9 4.0 - 9.8 K/uL 11/09/2025 12:35 PM CAUSTIC CRESYLATE SHIFT SUPERINTENDENT [facility] - [facility] RBC 4.73 3.90 - 4.90 M/uL 11/09/2025 12:35 PM CAUSTIC CRESYLATE SHIFT SUPERINTENDENT [facility] HEMOGLOBIN 14.1 11.8 - 14.8 g/dL 11/09/2025 12:35 PM CAUSTIC CRESYLATE SHIFT SUPERINTENDENT [facility] HEMATOCRIT 41.9 35.5 - 44.0 % 11/09/2025 12:35 PM CAUSTIC CRESYLATE SHIFT SUPERINTENDENT [facility] MCV 88.6 82.0 - 99.0 fL 11/09/2025 12:35 PM CAUSTIC CRESYLATE SHIFT SUPERINTENDENT [facility] MCH 29.8 27.2 - 32.6 pg 11/09/2025 12:35 PM CAUSTIC CRESYLATE SHIFT SUPERINTENDENT [facility] MCHC 33.7 31.5 - 35.5 g/dL 11/09/2025 12:35 PM CAUSTIC CRESYLATE SHIFT SUPERINTENDENT [facility] RDW 12.9 11.5 - 14.5 % 11/09/2025 12:35 PM CAUSTIC CRESYLATE SHIFT SUPERINTENDENT [facility] RDW-STDEV 42.0 37.1 - 48.7 fL 11/09/2025 12:35 PM CAUSTIC CRESYLATE SHIFT SUPERINTENDENT [facility] PLATELETS 221 140 - 350 K/uL 11/09/2025 12:35 PM CAUSTIC CRESYLATE SHIFT SUPERINTENDENT [facility] MPV 10.1 9.3 - 12.4 fL 11/09/2025 12:35 PM CAUSTIC CRESYLATE SHIFT SUPERINTENDENT [facility] NEUTROPHILS 80 % 11/09/2025 12:35 PM CAUSTIC CRESYLATE SHIFT SUPERINTENDENT [facility] LYMPHOCYTES 11 % 11/09/2025 12:35 PM CAUSTIC CRESYLATE SHIFT SUPERINTENDENT [facility] MONOCYTES 8 % 11/09/2025 12:35 PM CAUSTIC CRESYLATE SHIFT SUPERINTENDENT [facility] EOSINOPHILS 0 % 11/09/2025 12:35 PM CAUSTIC CRESYLATE SHIFT SUPERINTENDENT [facility] BASOPHILS 1 % 11/09/2025 12:35 PM CAUSTIC CRESYLATE SHIFT SUPERINTENDENT [facility] IMMATURE GRANULOCYTES 0 % 11/09/2025 12:35 PM CAUSTIC CRESYLATE SHIFT SUPERINTENDENT [facility] NEUTROPHIL ABSOLUTE 4.77 1.90 - 7.00 K/uL 11/09/2025 12:35 PM CAUSTIC CRESYLATE SHIFT SUPERINTENDENT [facility] LYMPHOCYTE ABSOLUTE 0.63(L) 0.70 - 4.50 K/uL 11/09/2025 12:35 PM CAUSTIC CRESYLATE SHIFT SUPERINTENDENT [facility] MONOCYTE ABSOLUTE 0.46 0.10 - 1.30 K/uL 11/09/2025 12:35 PM CAUSTIC CRESYLATE SHIFT SUPERINTENDENT [facility] EOSINOPHIL ABSOLUTE 0.02 0.00 - 0.70 K/uL 11/09/2025 12:35 PM [facility] [facility] BASOPHILS ABSOLUTE 0.04 0.00 - 0.20 K/uL 11/09/2025 12:35 PM [facility] LABORATORY SERVICES - . [facility] IMMATURE GRANULOCYTES ABSOLUTE 0.02 0.00 - 0.03 K/uL 11/09/2025 12:35 PM [facility] [employer] [facility]ATORY SERVICES - [facility] Blood Venipuncture / Unknown 11/09/2025 12:08 PM CAUSTIC CRESYLATE SHIFT SUPERINTENDENT 11/09/2025 12:17 PM CAUSTIC CRESYLATE SHIFT SUPERINTENDENT Kajal Hernandez CNM HEMATOLOGY ORDERABLE S Final Result [facility] [employer] SERVICES [facility] CLIA# [id number] [address] [place] [address] * (ABNORMAL) URINALYSIS WITH REFLEX MICROSCOPIC (11/09/2025 12:08 PM CAUSTIC CRESYLATE SHIFT SUPERINTENDENT) COLOR UA Yellow Pale to Dark Yellow 11/09/2025 12:34 PM [facility] CLARITY UA Slightly Cloudy(A) Clear 11/09/2025 12:34 PM [facility] LABORATORY SERVICES [facility] SPECIFIC GRAVITY UA 1.023 1.003 - 1.035 11/09/2025 12:34 PM [facility] [employer] [facility]OR[facility] SERVICES [facility]. [facility] PH UA 6.0 5.0 - 8.0 11/09/2025 12:34 PM [facility] [employer] LABORATORY SERVICES [facility]. [facility] LEUKOCYTE ESTERASE UA Negative Negative 11/09/2025 12:34 PM [facility] [employer] [facility]OR[facility] SERVICES [facility]. [facility] NITRITE UA Negative Negative 11/09/2025 12:34 PM [facility] [employer] LABORATORY SERVICES - . [facility] PROTEIN UA 1+(A) Negative 11/09/2025 12:34 PM [facility] [employer] LABORATORY SERVICES [facility] GLUCOSE UA Negative Negative 11/09/2025 12:34 PM [facility] [employer] LABORAT[facility] SERVICES [facility]. [facility] KETONES UA 1+(A) Negative 11/09/2025 12:34 PM [facility] [employer] [facility]OR[facility] SERVICES [facility] UROBILINOGEN UA 2.0(A) <2.0 mg/dL 12:34 PM [facility] [employer] [facility] BILIRUBIN UA Negative Negative 11/09/2025 12:34 PM [facility] [employer] [facility]ORY [facility] BLOOD UA Negative Negative 11/09/2025 12:34 PM [facility] LABORATORY [facility] WBC UA 0-2 0 - 2 /hpf 11/09/2025 12:34 PM [facility] LABORATORY [facility] RBC UA 0-2 0 - 2 /hpf 11/09/2025 12:34 PM [facility] [employer] LABORATORY [facility] BACTERIA UA 1+(A) Negative /hpf 11/09/2025 12:34 PM [facility] [employer] [facility] EPITHELIAL CELLS, URINE 0-5 0 - 5 /hpf 11/09/2025 12:34 PM [facility] [employer] [facility] Urine URINE SPECIMEN OBTAINED BY CLEAN CATCH PROCEDURE / Unknown Collection / Unknown 11/09/2025 12:08 PM CAUSTIC CRESYLATE SHIFT SUPERINTENDENT 11/09/2025 12:17 PM CAUSTIC CRESYLATE SHIFT SUPERINTENDENT Kajal Hernandez CN URINE ORDERABLES Fin al Result [employer] [facility] CLIA# [id number] [address] [facility] [place] [address] * (ABNORMAL) COMPREHENSIVE METABOLIC PANEL (11/09/2025 12:08 PM CAUSTIC CRESYLATE SHIFT SUPERINTENDENT) SODIUM 136 136 - 145 mmol/L 11/09/2025 1:06 PM [facility] [employer] [facility] POTASSIUM 3.7 3.5 - 5.0 mmol/L 11/09/2025 1:06 PM [facility] mention [facility] CHLORIDE 102 98 - 107 mmol/L 11/09/2025 1:06 PM [facility] mention SERVICES [facility] CO2 22 22 - 29 mmol/L 11/09/2025 1:06 PM [facility] mention [facility] CALCIUM 9.2 8.6 - 10.2 mg/dL 11/09/2025 1:06 PM [facility] mention [facility] BUN 6 6 - 20 mg/dL 11/09/2025 1:06 PM [facility] LABORATORY [facility] CREATININE 0.51 0.51 - 0.95 mg/dL 11/09/2025 1:06 PM [facility] [employer] [facility] GLUCOSE 92 74 - 99 mg/dL 11/09/2025 1:06 PM [facility] TOTAL PROTEIN 7.0 6.7 - 8.6 g/dL 11/09/2025 1:06 PM [facility] [employer] [facility] ALBUMIN 4.3 3.5 - 5.2 g/dL 11/09/2025 1:06 PM [facility] [employer] [facility] BILIRUBIN TOTAL 0.7 0.0 - 1.2 mg/dL 11/09/2025 1:06 PM [facility] [employer] [facility] ALKALINE PHOSPHATASE 35 35 - 104 U/L 11/09/2025 1:06 PM [facility] [employer] [facility] AST 34(H) <33 U/L 11/09/2025 1:06 PM [facility] [employer] [facility] Comment:Hemolysis present. R esult may be falsely elevated. ALT 47(H) <34 U/L 11/09/2025 1:06 PM [facility] [employer] [facility] GFR >60 >=60 mL/min/1.7 3 sq meter 11/09/2025 1:06 PM [facility] [employer] [facility] Comment:eGFR calculated with 2020 CKD-EPI equation. Vegetarian diet, extremely high or low muscle mass, and may affect results. Cystatin C with Glomerular Filtration Rate is a suitable alternative for these patients. ANION GAP 12 8 - 16 mmol/L 11/09/2025 1:06 PM [facility] [employer] [facility] Blood Venipuncture / Unknown 11/09/2025 12:08 PM CAUSTIC CRESYLATE SHIFT SUPERINTENDENT 11/09/2025 12:17 PM [facility] - 11/09/2025 1:06 PM [facility] Samples containing indocyanine green cause interferences on Total and/or Direct Bilirubin and must not be measured. Kajal Hernandez [facility] CHEMISTRY ORDERABLES Final Result [facility] [employer] [facility] [id number] [address] [place] [address] * (ABNORMAL) POC , URINE (11/09/2025 10:52 AM CAUSTIC CRESYLATE SHIFT SUPERINTENDENT) HCG QUAL URINE Positive(A ) Negative 11/09/2025 10:52 AM CAUSTIC CRESYLATE SHIFT SUPERINTENDENT [facility] [employer] [facility] Urine 11/09/2025 10:5 2 AM CAUSTIC CRESYLATE SHIFT SUPERINTENDENT 11/09/2025 10:56 AM CAUSTIC CRESYLATE SHIFT SUPERINTENDENT Narrative [facility] [employer] [facility] - 11/09/2025 10:52 AM CAUSTIC CRESYLATE SHIFT SUPERINTENDENT Positive : Result is greater than or equal to 25 mIU/mL Negative: Result is less than 25 mIU/mL Invalid: Result is borderline or indeterminate,send to lab for serum test methodology. us Interface Provider Poct POINT OF CARE TESTING Fi nal Result Performing Organization Address City/State/[facility] Co de Phone Number [facility] [employer] [facility]# [id number] [address] [place] [address] from Last 3 Months Insurance [facility]
[2025-11-12 00:04] LABS: Alanine Aminotransferase 39 U/L (6-35); Albumin Level 4.3 g/dL (3.5-5.1); Alkaline Phosphatase 33 U/L (38-126); Anion Gap 9 mmol/L (4-12); Aspartate Amino Transferase 29 U/L (14-36); Bilirubin,Total 0.4 mg/dL (0.2-1.3); Blood Urea Nitrogen 8 mg/dL (7-17); Calcium 9.4 mg/dL (8.4-10.2); Carbon Dioxide 25 mmol/L (22-30); Chloride 103 mmol/L (98-107); Estimated Glomerular Filt Rate > 60; Glucose 51 mg/dL (65-110); Lipase 83 U/L (23-300); Magnesium 1.8 mg/dL (1.6-2.3); Potassium 3.4 mmol/L (3.4-5.0); Sodium 137 mmol/L (137-145); Total Protein 7.4 g/dL (6.3-8.2)
--- NOTE | 2025-11-12 00:22 | ED_ITS ---
HPI - General Adult General Chief complaint: Recheck/Abnormal Lab/Rx Stated complaint: low blood sugar, Time Seen by Provider: 11/11/25 22:34 History of Present Illness HPI narrative: Patient 30-year-old female who presents emergency department chief complaint of nausea vomiting and low blood sugars. Patient reports that she is a gestational diabetic patient reports she is started on 10 mg of glipizide and has been having nausea vomiting patient reports her blood sugars were in the 50s Related Data Home Medications ?Medication ?Instructions ?Recorded ?Confirmed ?Last Taken ?Type ondansetron 8 mg disintegrating 8 mg PO Q12H nausea/vo miting 10/22/25 10/22/25 10/22/25 08:30 History tablet Allergies Allergy/AdvReac Type Severity Reaction Status Date / Time prednisone Allergy Rash Verified 11/07/25 16:43 [facility] Past Medical History Medical History History of smoking Marijuana abuse Obesity (BMI 35.0-39.9 without comorbidity) Headache Allergies Gestational diabetes Gestational hypertension Surgical History Surgical History Hx laparoscopic cholecystectomy 09/11/24 Gilberto Guerrero MD History of tonsillectomy History of appendectomy Family History Family History Grandparent Diabetes mellitus Depression Cancer Hypertension Daughter No problems noted. Father Depression Mother Depression Diverticulitis Crohn disease Social History Social History Smoking status: Former smoker Tobacco type: cigarettes Second hand tobacco smoke exposure: No Smoking end date: 11/22/18 Alcohol intake: never Substance use: never Substance use type: marijuana Lack of Transportation: No Lack of Food: Never True Current Housing: I Have Housing Concerned About Future Housing: No Difficulty Paying Gas/Electric Bills: No Difficulty Paying for Meds: No Currently Unemployed: No Education: High School Diploma/GED Difficulty w/ Childcare or Family Care: No Gender identity (if verbalized by the patient): Female Spiritual care concerns: No MDM Differential Diagnosis Differential Diagnosis: Hyperemesis gravidarum, medication induced hypoglycemia Patient received IV fluids blood sugar has come up to 111 patient is able tolerate p.o. intake it was discussed with the patient admission for observation or discharge home the patient states that she is feeling much better and she would like to do outpatient therapy because her daughter's birthday is today case was discussed with the patient's OB doctor courtney who also agreed that if the patient wanted to stay he would be happy to admit her recommended that she cut her oral hypoglycemic in half and be seen in office this week Lab Data 11/11/25 23:27 11/11/25 23:27 Labs: Lab Results 11/11/25 11/11/25 11/11/25 Range/Units 22:27 22:36 23:21 WBC (4.5-10.0) K/mm3 RBC (4.2-5.4) M/mm3 Hgb (12.0-15.0) g/dL Hct (37.0-47.0) % MCV (80-100) fl MCH (26-34) pg MCHC (32-36) g/dl RDW (11.5-14.5) % Plt Count (150-375) k/mm3 MPV (7.4-10.4) fl Immature Gran % (Auto) (0-0.5) % Neut % (Auto) (45.5-73.1) % Lymph % (Auto) (18.3-44.2) % [place] % (Auto) (2.6-8.5) % Eos % (Auto) (0-4.4) % Baso % (Auto) (0.2-1.2) % Lymph # (Auto) (0.9-3.2) K/mm3 [place] # (Auto) (0.1-0.6) K/mm3 Eos # (Auto) (0-0.3) K/mm3 Baso # (Auto) (0.0-0.1) K/mm3 Abs Immat Gran (auto) (0.00-0.031) K/mm3 Absolute Neuts (auto) (1.3-6.7) K/mm3 Absolute Nucleated RBC (0.0-0.012) K/mm3 Nucleated RBC % (0.0-0.2) % Sodium (137-145) mmol/L Potassium (3.4-5.0) mmol/L Chloride (98-107) mmol/L Carbon Dioxide (22-30) mmol/L Anion Gap (4-12) mmol/L BUN (7-17) mg/dL Creatinine (0.7-1.0) mg/dL Estim Creat Clear Calc Estimated GFR (59 - ) Glucose (65-110) mg/dL POC Capillary Glucose 79 94 80 (65-105) mg/dl Lactic Acid (0.7-2.0) mmol/L Calcium (8.4-10.2) mg/dL Magnesium (1.6-2.3) mg/dL Total Bilirubin (0.2-1.3) mg/dL AST (14-36) U/L ALT (6-35) U/L Alkaline Phosphatase (38-126) U/L Total Protein (6.3-8.2) g/dL Albumin (3.5-5.1) g/dL Lipase (23-300) U/L Urine Color (Yellow) Urine Appearance (Clear) Urine pH (5.0-9.0) Ur Specific [place] (1.001-1.035) Urine Protein (Negative) mg/dL Urine Glucose (UA) (Negative) mg/dL Urine Ketones (Negative) mg/dL Ur Blood (Man) (Negative) Urine Nitrate (Negative) Urine Bilirubin (Negative) Urine Urobilinogen (<2.0) mg/dL Leukocyte Esterase Rfl (Negative) IVONNE/UL Urine RBC (0-2) /hpf Urine WBC (0-3) /hpf Ur Squamous Epith Cells (Few) /hpf Urine Bacteria /hpf Urine Casts // Range/Units 23:27 WBC 6.0 (4.5-10.0) K/mm3 RBC 4.72 (4.2-5.4) M/mm3 Hgb 14.1 (12.0-15.0) g/dL Hct 40.6 (37.0-47.0) % MCV 86.0 (80-100) fl MCH 29.9 (26-34) pg MCHC 34.7 (32-36) g/dl RDW 12.9 (11.5-14.5) % Plt Count 248 (150-375) k/mm3 MPV 9.6 (7.4-10.4) fl Immature Gran % (Auto) 0.3 (0-0.5) % Neut % (Auto) 61.2 (45.5-73.1) % Lymph % (Auto) 29.9 (18.3-44.2) % [place] % (Auto) 7.1 (2.6-8.5) % Eos % (Auto) 1.2 (0-4.4) % Baso % (Auto) 0.3 (0.2-1.2) % Lymph # (Auto) 1.80 (0.9-3.2) K/mm3 [place] # (Auto) 0.4 (0.1-0.6) K/mm3 Eos # (Auto) 0.1 (0-0.3) K/mm3 Baso # (Auto) 0.0 (0.0-0.1) K/mm3 Abs Immat Gran (auto) 0.02 (0.00-0.031) K/mm3 Absolute Neuts (auto) 3.7 (1.3-6.7) K/mm3 Absolute Nucleated RBC 0.000 (0.0-0.012) K/mm3 Nucleated RBC % 0.0 (0.0-0.2) % Sodium 137 (137-145) mmol/L Potassium 3.4 (3.4-5.0) mmol/L Chloride 103 (98-107) mmol/L Carbon Dioxide 25 (22-30) mmol/L Anion Gap 9 (4-12) mmol/L BUN 8 (7-17) mg/dL Creatinine 0.46 L (0.7-1.0) mg/dL Estim Creat Clear Calc Not Reportable Estimated GFR > 60 (59 - ) Glucose 51 L* (65-110) mg/dL POC Capillary Glucose (65-105) mg/dl Lactic Acid 1.5 (0.7-2.0) mmol/L Calcium 9.4 (8.4-10.2) mg/dL Magnesium 1.8 (1.6-2.3) mg/dL Total Bilirubin 0.4 (0.2-1.3) mg/dL AST 29 (14-36) U/L ALT 39 H (6-35) U/L Alkaline Phosphatase 33 L (38-126) U/L Total Protein 7.4 (6.3-8.2) g/dL Albumin 4.3 (3.5-5.1) g/dL Lipase 83 (23-300) U/L Urine Color Yellow (Yellow) Urine Appearance Clear (Clear) Urine pH 7.0 (5.0-9.0) Ur Specific [place] 1.008 (1.001-1.035) Urine Protein Negative (Negative) mg/dL Urine Glucose (UA) Negative (Negative) mg/dL Urine Ketones Negative (Negative) mg/dL Ur Blood (Man) Negative (Negative) Urine Nitrate Negative (Negative) Urine Bilirubin Negative (Negative) Urine Urobilinogen 0.2 (<2.0) mg/dL Leukocyte Esterase Rfl Trace H (Negative) IVONNE/UL Urine RBC 0-2 (0-2) /hpf Urine WBC 0-5 (0-3) /hpf Ur Squamous Epith Cells None seen (Few) /hpf Urine Bacteria 1+ H /hpf Urine Casts 0-2 Discharge Plan Discharge Clinical Impression: Hypoglycemia, Vomiting affecting Patient Disposition: Home Condition: Stable Instructions: Antibiotic Form, Nausea and Vomiting in (ED), Hypoglycemia in a Person with Diabetes (ED) Additional Instructions: Please cut your diabetes medication in half please follow-up with your OBGYN this week Patient Language: German Prescriptions: No Action nitrofurantoin monohyd/m-cryst [Macrobid] 100 mg capsule 100 mg PO Q12H 5 Days Qty: 10 0RF Rx Instructions: must administer with a meal/food ondansetron 8 mg tablet,disintegrating 8 mg PO Q12H metoclopramide HCl [Reglan] 10 mg tablet 10 mg PO Q6H PRN (Reason: nausea and vomiting) Qty: 30 0RF Follow-up/Referrals: Venkat Gotti MD [Physician, CHALK MOLDING MACHINE OPERATOR] PHYSICIAN,SALES AND MANAGEMENT TRAINEE [Primary Care Provider, Internal Medicine] Time of Disposition: 00:30
[2025-11-12 00:44] VITALS: BP 119/64; PULSE 94; RESP 20; TEMP 36.4; O2SAT 100
== END 2025-11-12 00:59 | disposition home or self-care (01) ==
PROVIDERS: Emergency Provider Emergency Medicine
DX: O24.414 Gestational diabetes mellitus in pregnancy, insulin controlled (principal); Z87.891 Personal history of nicotine dependence; Z3A.00 Weeks of gestation of pregnancy not specified
CPT/HCPCS: 36415; 80053; 81001; 82948; 83605; 83690; 83735; 85025; 96361; 96374; 96375; 99284; J1200; J2765; J7030